=== PATIENT | female | born 1950 | race Caucasian/White ===

== ENCOUNTER 2016-04-18 06:28 | Inpatient (IN) | payer MEDICARE, OTHER ==
[2016-04-18] MEDS ORDERED: ALBUTEROL NEBULIZED 2.5 MG/3 ML INHALATION STA (06:37)
[2016-04-18] MEDS ORDERED: SODIUM CHLORIDE 0.9% 500 ML IV STA (06:37)
--- NOTE | 2016-04-18 06:39 | ED ---
General Adult HPI - General Source: RN notes reviewed <Antonio Steen - Last Filed: 04/18/16 06:47> <Tomi Singh - Last Filed: 04/18/16 08:02> - General Stated complaint: chest pain, SOB Time Seen by Provider: 04/18/16 06:35 - History of Present Illness Initial comments: This is a 66-year-old female who presents to the emergency department with past medical history significant for DE and COPD. Patient states she has had difficulty breathing over the last couple of days and is getting progressively worse per patient states she also has had significant cough which is not going away. Patient denies any fever or chills. Patient denies any chest pain but she does state her chest is tight which is typical for COPD. Patient denies any palpitations. She denies headache patient denies numbness weakness. Patient denies lightheadedness dizziness or near syncopal episode. Patient denies any abdominal pain patient denies nausea vomiting or diarrhea. (Antonio Steen) - Related Data Home Medications Medication Instructions Recorded Confirmed Albuterol Inhaler [Ventolin Hfa 1 - 2 puff INHALATION RT-Q4H PRN 09/30/15 Inhaler] Budesonide-Formot 160-4.5 Mcg 2 puff INHALATION RT-BID 10/12/15 04/18/16 [Symbicort 160-4.5 Mcg Inhaler] Albuterol Nebulized [Ventolin 2.5 mg INHALATION RT-Q6H 10/23/15 04/18/16 Nebulized] amLODIPine [Norvasc] 2.5 mg PO DAILY 01/09/16 04/18/16 HYDROcodone/APAP 7.5-325MG [[place] 1 tab PO Q8H PRN 04/18/16 04/18/16 7.5-325] Allergies Allergy/AdvReac Type Severity Reaction Status Date / Time pneumococcal vaccine Allergy Unknown STATES SHE Verified 04/18/16 08:00 GETS PNEUMONIA Influenza Virus Vaccines Allergy Unknown Verified 04/18/16 08:00 milk AdvReac Mild Nausea Verified 04/18/16 08:00 Review of Systems ROS Other: All systems not noted in ROS Statement are negative. <Antonio Steen - Last Filed: 04/18/16 06:47> ROS Other: All systems not noted in ROS Statement are negative. <Tomi Singh - Last Filed: 04/18/16 08:02> ROS Statement: Those systems with pertinent positive or pertinent negative responses have been documented in the HPI. Past Medical History Past Medical History: Asthma, Cancer, COPD, Eye Disorder, Hyperlipidemia, Hypertension, Myocardial Infarction (DE), Osteoarthritis (OA), Pneumonia, Sleep Apnea/CPAP/BIPAP Additional Past Medical History / Comment(s): Advanced oxygen-dependent COPD with chronic hypoxic respiratory failure and with multiple hospitalization for COPD exacerbation including hospitalization in May and October 2015, chronic hypoxic respiratory failure, the patient is bald with a single kidney, has hypertension, coronary artery disease, previous DE, osteoarthritis, preserved LV function without evidence of pulmonary hypertension based on echocardiogram from 2013. She also has bilateral glaucoma, skin cancer, previous history of bowel obstruction. Last Myocardial Infarction Date:: 2011? History of Any Multi-Drug Resistant Organisms: None Reported Past Surgical History: Appendectomy, Back Surgery, Bowel Resection, Section, Hysterectomy, Orthopedic Surgery Additional Past Surgical History / Comment(s): 10/28/15 anterior cervical decompression fusion C3-4,C4-5,C5-6 with NIM cord monitoring. Other surgical hx: BACK SURGERY WITH FUSION, manolo CATARACT SURGERY, LASER EYE SURGERY FOR GLAUCOMA., RIGHT KNEE SURGERY(fx kneecap). Past Anesthesia/Blood Transfusion Reactions: No Reported Reaction Past Psychological History: Anxiety Additional Psychological History / Comment(s): Pt resides with her son and laurie- in-law. She uses a wheeled walker to ambulate. She does not drive-family takes her to appts. She has O2 at 3L/NC ATC. She has a nebulizer. Smoking Status: Former smoker Past Alcohol Use History: Occasional Additional Past Alcohol Use History / Comment(s): Has been SMOKING FOR 59 YEARS.SMOKING SINCE 7 YEARS OLD, USED TO SMOKE 3 PPD. Since 10/12/15 admission to hospital smokes less than 3 cigarettes a day. 01/09/2016 patient reports she has not smoked marisol admission in October. Past Drug Use History: None Reported - Past Family History Mother Family Medical History: Myocardial Infarction (DE) Father Family Medical History: No Reported History Additional Family Medical History / Comment(s): FORM OLD AGE Brother(s) Family Medical History: Asthma, COPD Sister(s) Family Medical History: Asthma, COPD <Steen,Antonio - Last Filed: 04/18/16 06:47> General Exam <Antonio Steen - Last Filed: 04/18/16 06:47> <Tomi Singh - Last Filed: 04/18/16 08:02> - General Exam Comments Initial Comments: GENERAL: Patient is well-developed and well-nourished. Patient is nontoxic and well- hydrated and is in moderate distress. ENT: Neck is soft and supple. No significant lymphadenopathy is noted. Oropharynx is clear. Moist mucous membranes. Neck has full range of motion without eliciting any pain. EYES: The sclera were anicteric and conjunctiva were pink and moist. Extraocular movements were intact and pupils were equal round and reactive to light. Eyelids were unremarkable. PULMONARY: Patient has diffuse wheezing throughout CARDIOVASCULAR: There is a regular rate and rhythm without any murmurs gallops or rubs. ABDOMEN: Soft and nontender with normal bowel sounds. No palpable organomegaly was noted. There is no palpable pulsatile mass. SKIN: Skin is clear with no lesions or rashes and otherwise unremarkable. NEUROLOGIC: Patient is alert and oriented x3. Cranial nerves II through XII are grossly intact. Motor and sensory are also intact. Normal speech, volume and content. Symmetrical smile. MUSCULOSKELETAL: Normal extremities with adequate strength and full range of motion. No lower extremity swelling or edema. No calf tenderness. LYMPHATICS: No significant lymphadenopathy is noted PSYCHIATRIC: Normal psychiatric evaluation. Normal interpersonal interactions appears functionally intact in deals appropriately with others. No signs of depression. No signs of anxiety. (Antonio Steen) Medical Decision Making <Antonio Steen - Last Filed: 04/18/16 06:47> - Lab Data Result diagrams: 04/18/16 07:00 04/18/16 07:00 <Tomi Singh - Last Filed: 04/18/16 08:02> - Medical Decision Making EKG shows sinus tachycardia with an occasional PAC at 126 bpm RI interval is 120 QRS is 82 QT intervals 308 QTC is 446 per patient's EKG shows no ST segment elevation or depression or T wave abnormalities are noted. Dr. Osei will be taking over the care of this patient at 7 AM (Antonio Steen) - Lab Data Lab Results 04/18/16 04/18/1617 Range/Units 07:00 07:00 07:00 WBC 8.9 (3.8-10.6) k/uL RBC 3.98 (3.80-5.40) m/uL Hgb 10.4 L (11.4-16.0) gm/dL Hct 33.9 L (34.0-46.0) % MCV 85.2 (80.0-100.0) fL MCH 26.1 (25.0-35.0) pg MCHC 30.6 L (31.0-37.0) g/dL RDW 18.1 H (11.5-15.5) % Plt Count 451 H (150-450) k/uL Neutrophils % 71 % Lymphocytes % 20 % Monocytes % 5 % Eosinophils % 1 % Basophils % 1 % Neutrophils # 6.4 (1.3-7.7) k/uL Lymphocytes # 1.8 (1.0-4.8) k/uL Monocytes # 0.5 (0-1.0) k/uL Eosinophils # 0.1 (0-0.7) k/uL Basophils # 0.1 (0-0.2) k/uL Hypochromasia Slight Anisocytosis Slight PT (9.0-12.0) sec INR (<1.1) APTT (22.0-30.0) sec Sodium 140 (137-145) mmol/L Potassium 4.3 (3.5-5.1) mmol/L Chloride 100 (98-107) mmol/L Carbon Dioxide 29 (22-30) mmol/L Anion Gap 11 mmol/L BUN 9 (7-17) mg/dL Creatinine 0.50 L (0.52-1.04) mg/dL Est GFR (MDRD) Af Amer >60 (>60 ml/min/1.73 sqM) Est GFR (MDRD) Non-Af >60 (>60 ml/min/1.73 sqM) Glucose 129 H (74-99) mg/dL Calcium 9.2 (8.4-10.2) mg/dL Magnesium 1.8 (1.6-2.3) mg/dL Total Bilirubin 0.3 (0.2-1.3) mg/dL AST 18 (14-36) U/L ALT 27 (9-52) U/L Alkaline Phosphatase 90 (38-126) U/L Total Creatine Kinase 49 (30-135) U/L CK-MB (CK-2) 1.5 (0.0-2.4) ng/mL CK-MB (CK-2) Rel Index 3.1 Troponin I <0.012 (0.000-0.034) ng/mL Total Protein 7.1 (6.3-8.2) g/dL Albumin 3.7 (3.5-5.0) g/dL 04/18/16 Range/Units 07:00 WBC (3.8-10.6) k/uL RBC (3.80-5.40) m/uL Hgb (11.4-16.0) gm/dL Hct (34.0-46.0) % MCV (80.0-100.0) fL MCH (25.0-35.0) pg MCHC (31.0-37.0) g/dL RDW (11.5-15.5) % Plt Count (150-450) k/uL Neutrophils % % Lymphocytes % % Monocytes % % Eosinophils % % Basophils % % Neutrophils # (1.3-7.7) k/uL Lymphocytes # (1.0-4.8) k/uL Monocytes # (0-1.0) k/uL Eosinophils # (0-0.7) k/uL Basophils # (0-0.2) k/uL Hypochromasia Anisocytosis PT 10.2 (9.0-12.0) sec INR 1.0 (<1.1) APTT 23.5 (22.0-30.0) sec Sodium (137-145) mmol/L Potassium (3.5-5.1) mmol/L Chloride (98-107) mmol/L Carbon Dioxide (22-30) mmol/L Anion Gap mmol/L BUN (7-17) mg/dL Creatinine (0.52-1.04) mg/dL Est GFR (MDRD) Af Amer (>60 ml/min/1.73 sqM) Est GFR (MDRD) Non-Af (>60 ml/min/1.73 sqM) Glucose (74-99) mg/dL Calcium (8.4-10.2) mg/dL Magnesium (1.6-2.3) mg/dL Total Bilirubin (0.2-1.3) mg/dL AST (14-36) U/L ALT (9-52) U/L Alkaline Phosphatase (38-126) U/L Total Creatine Kinase (30-135) U/L CK-MB (CK-2) (0.0-2.4) ng/mL CK-MB (CK-2) Rel Index Troponin I (0.000-0.034) ng/mL Total Protein (6.3-8.2) g/dL Albumin (3.5-5.0) g/dL Disposition <Antonio Steen - Last Filed: 04/18/16 06:47> <Tomi Singh - Last Filed: 04/18/16 08:02> Clinical Impression: COPD exacerbation, Pneumonia Disposition: ADMITTED IP TO THIS HOSP Condition: Poor
[2016-04-18] MEDS ORDERED: IPRATROPIUM 0.5 MG/2.5 ML NEBU INHALATION STA (06:41)
[2016-04-18 07:07] LABS: Anisocytosis Slight; Basophils # (A) 0.1 k/uL (0-0.2); Basophils % (A) 1 %; CH 26.9; CHCM 31.7; Eosinophils # (A) 0.1 k/uL (0-0.7); Eosinophils % (A) 1 %; HCT 33.9 % (34.0-46.0); HGB 10.4 gm/dL (11.4-16.0); Hypochromasia Slight; Luc # (Auto) 0.15; Luc % (Auto) 2; Lymphocytes # (A) 1.8 k/uL (1.0-4.8); Lymphocytes % (A) 20 %; MCH 26.1 pg (25.0-35.0); MCHC 30.6 g/dL (31.0-37.0); MCV 85.2 fL (80.0-100.0); Mean Platelet Volume 7.4; Monocytes # (A) 0.5 k/uL (0-1.0); Monocytes % (A) 5 %; Neutrophils # (A) 6.4 k/uL (1.3-7.7); Neutrophils % (A) 71 %; RBC 3.98 m/uL (3.80-5.40); RDW 18.1 % (11.5-15.5); WBC 8.9 k/uL (3.8-10.6)
[2016-04-18 07:19] LABS: ALT 27 U/L (9-52); AST 18 U/L (14-36); Alkaline Phosphatase 90 U/L (38-126); Anion Gap 11 mmol/L; Blood Urea Nitrogen 9 mg/dL (7-17); Calcium 9.2 mg/dL (8.4-10.2); Carbon Dioxide 29 mmol/L (22-30); Chloride 100 mmol/L (98-107); Glucose 129 mg/dL (74-99); Magnesium 1.8 mg/dL (1.6-2.3); Non-African American GFR(MDRD) >60 (>60 ml/min/1.73 sqM); Potassium 4.3 mmol/L (3.5-5.1); Sodium 140 mmol/L (137-145); Total Bilirubin 0.3 mg/dL (0.2-1.3); Total Protein 7.1 g/dL (6.3-8.2)
[2016-04-18 07:26] LABS: Partial Thromboplastin Time 23.5 sec (22.0-30.0); Prothrombin Time 10.2 sec (9.0-12.0)
[2016-04-18 07:27] LABS: Creatine Kinase 49 U/L (30-135)
[2016-04-18] MEDS ORDERED: ALBUTEROL NEBULIZED 2.5 MG/3 ML INHALATION PRN (07:31)
[2016-04-18] MEDS ORDERED: HYDROcodone/APAP 5-325MG 1 EACH TAB PO PRN (07:33)
[2016-04-18 07:41] LABS: Creatine Kinase MB 1.5 ng/mL (0.0-2.4); Troponin I <0.012 ng/mL (0.000-0.034)
--- NOTE | 2016-04-18 07:45 | XR ---
EXAMINATION TYPE: XR chest 1V portable DATE OF EXAM: 04/18/2016 7:09 AM COMPARISON: Chest x-ray January 16, 2016. HISTORY: Shortness of breath for 2 days. TECHNIQUE: Single frontal view of the chest is obtained. FINDINGS: There is emphysematous change with scattered areas of parenchymal fibrosis redemonstrated bilaterally. There is persistent right apical pleural thickening and scarring. There are new bilatera l suprahilar opacities and left upper medial opacities. There is new tiny bilateral pleural effusions . No pneumothorax is seen bilaterally. The cardiac silhouette size is within normal limits. Fusion pl ate lower cervical spine is partially imaged. IMPRESSION: Chronic emphysematous and fibrotic changes. New bilateral suprahilar infiltrates and/or edema and left upper medial infiltrate.
[2016-04-18] MEDS ORDERED: HEPARIN SODIUM,PORCINE 5,000 UNIT/ML 1 ML VIAL SQ SCH (08:00)
[2016-04-18] MEDS ORDERED: LEVOFLOXACIN 750MG-D5W PMX 750 MG in DEXTROSE/WATER 1 150ML.BAG IVPB STA (08:01)
[2016-04-18] MEDS ORDERED: LOSARTAN 50 MG TAB PO SCH (09:00)
[2016-04-18] MEDS ORDERED: amLODIPine 2.5 MG TAB PO SCH (09:00)
[2016-04-18] MEDS: IPRATROPIUM-ALBUTEROL 3 ML NEB INHALATION SCH ×4 (11:25→19:43)
[2016-04-18] MEDS: SYMBICORT 160-4.5 MCG INHALER INHALATION SCH ×2 (11:25→19:48)
[2016-04-18] MEDS: METOPROLOL TARTRATE 25 MG TAB PO SCH (12:08)
[2016-04-18 12:10] LABS: Glucose,Whole Blood 147 mg/dL (75-99)
[2016-04-18] MEDS: methylPREDNISolone SOD SUCCI 125 MG/2 ML VIAL IV SCH ×3 (12:10→23:56)
[2016-04-18] MEDS: CHOLECALCIFEROL 1,000 UNIT TAB PO SCH (12:10)
[2016-04-18] MEDS: INSULIN LISPRO (humaLOG) 300 UNIT/3 ML VIAL SQ SCH ×3 (12:30→21:55)
[2016-04-18 16:40] LABS: Glucose,Whole Blood 179 mg/dL (75-99)
[2016-04-18 20:18] LABS: Glucose,Whole Blood 128 mg/dL (75-99)
[2016-04-18 20:50] LABS: Hemoglobin A1C 5.5 % (4.2-6.1)
[2016-04-18] MEDS: HYDROcodone/APAP 7.5-325MG 1 EACH TAB PO PRN (21:54)
[2016-04-18] MEDS: ATORVASTATIN 40 MG TAB PO SCH (21:54)
[2016-04-18] MEDS: HEPARIN SODIUM,PORCINE 5,000 UNIT/ML 1 ML VIAL SQ SCH (21:55)
--- NOTE | 2016-04-18 22:03 | HP ---
DATE OF ADMISSION: Patient is a very pleasant 66-year-old female who came into the emergency department with complaints of shortness of breath. Patient appears to have ( ) has used 3.5 L of oxygen at home. Patient denied any fever or chills. Patient was coughing with greenish sputum production. Patient was started on levofloxacin. Patient was started on Rocephin and azithromycin. Patient does not appear to have a pneumonic process on the chest x-ray. Patient is a thin-built female; is at present using BiPAP on and off. Patient continues to smoke. She says she cut down to 4 cigarettes lately because of her shortness of breath. Her shortness of breath started 3 days ago. Patient denied any fever or chills. Patient follows with Dr. Vang as an outpatient. REVIEW OF SYSTEMS: CONSTITUTIONAL: No fever, no malaise, no fatigue. HEENT: No recent visual problems or hearing problems. Denied any sore throat. CARDIOVASCULAR: No chest pain, orthopnea, PND, no palpitations, no syncope. PULMONARY: As described in HPI. GASTROINTESTINAL: No diarrhea, no nausea, no vomiting, no abdominal pain. Normoactive bowel sounds. NEUROLOGICAL: No headaches, no weakness, no numbness. HEMATOLOGICAL: Denies any bleeding or petechiae. GENITOURINARY: Denies any burning micturition, frequency, or urgency. MUSCULOSKELETAL/RHEUMATOLOGICAL: Denies any joint pain, swelling, or any muscle pain. ENDOCRINE: Denies any polyuria or polydipsia. The rest of the 14 point review of systems is negative. Home medications include: 1. Albuterol. 2. Budesonide. 3. Fomoterol. 4. Amlodipine. 5. Hydrocodone/acetaminophen. ALLERGIES: PNEUMOCOCCAL VACCINE, INFLUENZA VACCINE. Past medical history is significant for: 1. COPD. 2. Hyperlipidemia. 3. Hypertension. 4. Osteoarthritis. 5. Myocardial infarction. 6. Sleep apnea. Patient is oxygen-dependent; uses around 3.5 L at home. PAST SURGICAL HISTORY: 1. Appendectomy. 2. Back surgery. 3. Bowel resection surgery. 4. section. 5. Hysterectomy. 6. Orthopedic surgery. Patient continues to smoke; has been smoking for 59 years; used to smoke 3 packs per day. Denied any alcohol abuse or any drug abuse. FAMILY HISTORY: Mother with myocardial infarction. Father of old age. Brother had asthma and COPD. Sister had asthma and COPD. PHYSICAL EXAMINATION: VITAL SIGNS: Temperature 97.4, pulse of around 100, respiratory rate of 22. Blood pressure is 110/70. Saturating at 92% on 4 L of oxygen by nasal cannula. ( ) GENERAL: The patient is alert and oriented x3, not in any acute distress. Well developed, well nourished. HEENT: Pupils are round and equally reacting to light. EOMI. No scleral icterus. No conjunctival pallor. Normocephalic, atraumatic. No pharyngeal erythema. No thyromegaly. CARDIOVASCULAR: S1 and S2 present. No murmurs, rubs, or gallops. PULMONARY: Significantly decreased air entry to bilateral lung reynolds. No wheezing was appreciated. No crackles were appreciated. Patient goes into respiratory distress very easily. Even when she talks she gets short of breath. ABDOMEN: Soft, nontender, nondistended, normoactive bowel sounds. No palpable organomegaly. MUSCULOSKELETAL: No joint swelling or deformity. EXTREMITIES: No cyanosis, clubbing, or pedal edema. NEUROLOGICAL: Gross neurological examination did not reveal any focal deficits. SKIN: No rashes. LABORATORY DATA: CBC, CMP are essentially within normal limits. Chest x-ray did not show any pneumonic process. ASSESSMENT AND PLAN: 1. Acute on chronic obstructive pulmonary disease exacerbation with acute on chronic hypercapnic respiratory failure from chronic obstructive pulmonary disease exacerbation. Patient does have advanced COPD, Gold stage V, stage IV COPD. Extensive counseling regarding nicotine use was provided. Patient was started on systemic steroids, inhalational treatments in the form of levofloxacin for tracheobronchitis. 2. Tracheobronchitis. 3. Continued nicotine use. Counseling was provided. 4. Hyperlipidemia. 5. Hypertension. 6. 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 Patient was on and off BiPAP for severe COPD exacerbation. Pulmonology will be consulted.
--- NOTE | 2016-04-18 22:33 | HP ---
DATE OF ADMISSION: 04/18/2016 The patient is a very pleasant 66 -year-old female who came into the Emergency Room Department with complaints of shortness of breath and patient appears to have ( ) 3.5 L of oxygen at home. The patient denied any fever, chills. Patient was coughing with ( ) sputum production, ( ) levofloxacin. The patient was started on Rocephin and azithromycin. The patient does not appear to have pneumonic process on the chest x-ray. Patient is a thin built female, is presently using BIPAP on and off. Patient continues to smoke. She says she cut down to 4 cigarettes lately because of her shortness of breath. Her shortness of breath started 3 days ago. Patient denied any fever, chills. Patient follows with Dr. Vang as an outpatient. REVIEW OF SYSTEMS: CONSTITUTIONAL: No fever, no malaise, no fatigue. HEENT: No recent visual problems or hearing problems. Denied any sore throat. CARDIOVASCULAR: No chest pain, orthopnea, PND, no palpitations, no syncope. PULMONARY: As described in HPI. GASTROINTESTINAL: No diarrhea, no nausea, no vomiting, no abdominal pain. Normoactive bowel sounds. NEUROLOGICAL: No headaches, no weakness, no numbness. HEMATOLOGICAL: Denies any bleeding or petechiae. GENITOURINARY: Denies any burning micturition, frequency, or urgency. MUSCULOSKELETAL/RHEUMATOLOGICAL: Denies any joint pain, swelling, or any muscle pain. ENDOCRINE: Denies any polyuria or polydipsia. The rest of the 14 point review of systems is negative. The home medications include: 1. Albuterol. 2. Budesonide. 3. Formoterol. 4. Amlodipine. 5. Hydrocodone acetaminophen. ALLERGIES: ALLERGIC TO PNEUMOCOCCAL VACCINE AND ( ). PAST MEDICAL HISTORY: Significant for COPD, hyperlipidemia, hypertension, osteoarthritis, myocardial infarction, sleep apnea, the patient oxygen dependent, ( ) at home. PAST SURGICAL HISTORY: Appendectomy, back surgery, ( ) surgery, section, hysterectomy, orthopedic surgery. Patient continues to smoke, has been smoking for 59 years. Used to smoke 3 packs per day. Denied any alcohol abuse or drug abuse. FAMILY HISTORY: Significant for mother with myocardial infarction. Father of old age. Brother had asthma and COPD . PHYSICAL EXAMINATION: VITAL SIGNS: Temperature is 97.4, pulse around 100, respiratory rate of 22, blood pressure is 110/70, saturating at 92% on 4 liters of O2 by nasal cannula. GENERAL: ( ) thin built female, alert and oriented x3. HEENT: Pupils are round and equally reacting to light. EOMI. No scleral icterus. No conjunctival pallor. Normocephalic, atraumatic. No pharyngeal erythema. No thyromegaly. CARDIOVASCULAR: S1 and S2 present. No murmurs, rubs, or gallops. PULMONARY: Significantly decreased air entry to bilateral lung reynolds. No wheezing was appreciated. No crackles are appreciated. Patient goes into respiratory distress very easily even with simple ( ) even when she talks she gets short of breath. ABDOMEN: Soft, nontender, nondistended, normoactive bowel sounds. No palpable organomegaly. MUSCULOSKELETAL: No joint swelling or deformity. EXTREMITIES: No cyanosis, clubbing, or pedal edema. NEUROLOGICAL: Gross neurological examination did not reveal any focal deficits. SKIN: No rashes. LABORATORY DATA: CBC, CMP are essentially within normal limits. Chest x-ray did not show any pneumonic process ASSESSMENT AND PLAN: 1. Acute on chronic obstructive pulmonary disease exacerbation ( ) acute on chronic hypercapnic respiratory failure from chronic obstructive pulmonary disease exacerbation. Patient does have advanced chronic obstructive pulmonary disease, Gold stage V, Stage IV chronic obstructive pulmonary disease. Extensive counseling regarding ( ) use was provided. Patient was started on systemic steroids inhalation treatments. Antibiotics in the form of levofloxacin for tracheobronchitis. 2. Tracheobronchitis. 3. Continued nicotine use. Counseling was provided. 4. Hyperlipidemia. 5. Hypertension. 6. 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 7. Patient was on and off BiPAP for severe chronic obstructive pulmonary disease exacerbation and pulmonology will be consulted.
[2016-04-19] MEDS: IPRATROPIUM-ALBUTEROL 3 ML NEB INHALATION SCH ×6 (00:04→21:22)
[2016-04-19] MEDS ORDERED: IV VANCOMYCIN PER PHARMACY 1 EACH MISC MISCELLANE PRN (05:34)
[2016-04-19] MEDS ORDERED: VANCOMYCIN 1,000 MG in SODIUM CHLORIDE 0.9% 250 ML IVPB STA (05:34)
[2016-04-19] MEDS: methylPREDNISolone SOD SUCCI 125 MG/2 ML VIAL IV SCH ×4 (05:59→23:49)
[2016-04-19 06:06] LABS: Glucose,Whole Blood 161 mg/dL (75-99)
[2016-04-19] MEDS: INSULIN LISPRO (humaLOG) 300 UNIT/3 ML VIAL SQ SCH ×4 (06:50→21:31)
[2016-04-19] MEDS: METOPROLOL TARTRATE 25 MG TAB PO SCH (08:23)
[2016-04-19] MEDS: LEVOFLOXACIN 750 MG TAB PO SCH (08:23)
[2016-04-19] MEDS: HEPARIN SODIUM,PORCINE 5,000 UNIT/ML 1 ML VIAL SQ SCH ×2 (08:23→21:35)
[2016-04-19] MEDS: SYMBICORT 160-4.5 MCG INHALER INHALATION SCH ×2 (08:54→21:23)
[2016-04-19 11:47] LABS: Glucose,Whole Blood 127 mg/dL (75-99)
[2016-04-19] MEDS: CHOLECALCIFEROL 1,000 UNIT TAB PO SCH (11:56)
[2016-04-19 16:50] LABS: Glucose,Whole Blood 143 mg/dL (75-99)
[2016-04-19] MEDS: VANCOMYCIN 1,000 MG in SODIUM CHLORIDE 0.9% 250 ML IVPB SCH (17:57)
[2016-04-19 20:17] LABS: Glucose,Whole Blood 191 mg/dL (75-99)
[2016-04-19] MEDS: ATORVASTATIN 40 MG TAB PO SCH (21:28)
--- NOTE | 2016-04-19 23:07 | PN ---
This patient is a 66-year-old who came into the emergency department and was admitted for COPD exacerbation. Patient does have advanced COPD. Patient is still using on and off BiPAP but has significant clinical improvement. Patient continues to smoke, follows with Dr. Vang. Dr. Vang was consulted. REVIEW OF SYSTEMS: CARDIOVASCULAR: No chest pain, no orthopnea, no PND, no palpitations. PULMONARY: Improved shortness of breath. GASTROINTESTINAL: No diarrhea, nausea or vomiting. No abdominal pain. Normoactive bowel sounds. NEUROLOGIC: No headaches, no weakness, no numbness. Medications were reviewed. PHYSICAL EXAMINATION: VITAL SIGNS: Temperature 98.5, pulse of 78, respiratory rate of 22. Blood pressure is 130/72. Saturating at 95% on 4 L. Patient is still using on and off BiPAP. GENERAL: The patient is alert and oriented x3, not in any acute distress. Well developed, well nourished. HEENT: Pupils are round and equally reacting to light. EOMI. No scleral icterus. No conjunctival pallor. Normocephalic, atraumatic. No pharyngeal erythema. No thyromegaly. CARDIOVASCULAR: S1 and S2 present. No murmurs, rubs, or gallops. PULMONARY: Patient does have significant improvement in air entry. No significant wheezing was appreciated. ABDOMEN: Soft, nontender, nondistended, normoactive bowel sounds. No palpable organomegaly. MUSCULOSKELETAL: No joint swelling or deformity. EXTREMITIES: No cyanosis, clubbing, or pedal edema. NEUROLOGICAL: Gross neurological examination did not reveal any focal deficits. SKIN: No rashes. Laboratory data were reviewed. ASSESSMENT AND PLAN: 1. Acute on chronic hypercapnic respiratory failure from chronic obstructive pulmonary disease exacerbation. Patient probably has Gold stage IV COPD. Patient uses around 3.5 L at home. 2. Tracheobronchitis. 3. History of sleep apnea as per the patient. 4. Hypertension. 5. Severe cachexia. PLAN: Continue with systemic steroids, inhalational treatments, antibiotics for tracheobronchitis. Try to wean her off the BiPAP. Consulted Pulmonology.
[2016-04-20] MEDS: IPRATROPIUM-ALBUTEROL 3 ML NEB INHALATION SCH ×6 (00:21→19:37)
[2016-04-20 05:34] LABS: Glucose,Whole Blood 132 mg/dL (75-99)
[2016-04-20] MEDS: VANCOMYCIN 1,000 MG in SODIUM CHLORIDE 0.9% 250 ML IVPB SCH (06:04)
[2016-04-20] MEDS: methylPREDNISolone SOD SUCCI 125 MG/2 ML VIAL IV SCH ×4 (06:04→23:58)
[2016-04-20] MEDS: INSULIN LISPRO (humaLOG) 300 UNIT/3 ML VIAL SQ SCH ×4 (07:05→22:03)
[2016-04-20] MEDS: HEPARIN SODIUM,PORCINE 5,000 UNIT/ML 1 ML VIAL SQ SCH ×2 (08:30→22:05)
[2016-04-20] MEDS: LEVOFLOXACIN 750 MG TAB PO SCH (08:30)
[2016-04-20] MEDS: METOPROLOL TARTRATE 25 MG TAB PO SCH (08:30)
[2016-04-20] MEDS: SYMBICORT 160-4.5 MCG INHALER INHALATION SCH ×2 (08:31→19:36)
[2016-04-20 11:31] LABS: Glucose,Whole Blood 121 mg/dL (75-99)
[2016-04-20] MEDS: CHOLECALCIFEROL 1,000 UNIT TAB PO SCH (11:50)
[2016-04-20 12:53] VITALS: BMI 17.0
--- NOTE | 2016-04-20 15:34 | P.CNPUL ---
History of Present Illness Consult date: 04/20/16 Reason for consult: COPD History of present illness: 66-year-old female patient with advanced oxygen-dependent COPD, question of multiple hospitalization the past for COPD exacerbation. For example, for the past year of 2015 the patient was admitted 4 times for COPD exacerbation including hospitalizations in May, June, October and January 2016 for the same. The patient required also noninvasive positive pressure ventilation/ BiPAP therapy for respiratory support. She comes in for essentially the same symptoms of increased shortness of breath, cough, chest congestion, wheezing, some night sweats. Denies having any chest pain. No angina. No pleurisy. No significant swelling in lower extremities. She claims that her last cigarette was around 2015 and she is still trying to quit smoking. Her chest x-ray shows hyperinflation and chronic scarring and fibrotic changes in the lung apices bilaterally more so on the right. There is some vague perihilar pulmonary infiltrates in addition. No nausea. No vomiting. No abdominal pain. No change in mental status. No leukocytosis. Renal functions were normal. She is significantly cachectic and looks very much emaciated wasted due to COPD related catabolic state Review of Systems Review of system was done. Overall performance and functional status is very poor due to advanced lung disease. The patient has limited exercise capacity and she is short of breath constantly and even at rest. She is actually dependent. 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 Last Myocardial Infarction Date:: 2011? History of Any Multi-Drug Resistant Organisms: None Reported Past Surgical History: Appendectomy, Back Surgery, Bowel Resection, Section, Hysterectomy, Orthopedic Surgery Additional Past Surgical History / Comment(s): 10/28/15 anterior cervical decompression fusion C3-4,C4-5,C5-6 with NIM cord monitoring, BACK SURGERY lami / FUSION/discectomy, manolo CATARACT SURGERY, LASER EYE SURGERY FOR GLAUCOMA., RIGHT KNEE SURGERY(fx kneecap). Past Anesthesia/Blood Transfusion Reactions: No Reported Reaction Past Psychological History: Anxiety Additional Psychological History / Comment(s): Pt has a son and laurie-in-law that reside with her. She uses a wheeled walker to ambulate. She does not drive-a friend takes her to appts. She has O2 at 3L/[place] ATC. She has a nebulizer. She is very concerned that she will not have a ride available to take her home at discharge. Smoking Status: Current every day smoker Past Alcohol Use History: Occasional Additional Past Alcohol Use History / Comment(s): Has been SMOKING FOR 59 YEARS.SMOKING SINCE 7 YEARS OLD, USED TO SMOKE 3 PPD. Since 10/12/15 admission to hospital smokes less than 4 cigarettes a day. Past Drug Use History: None Reported - Past Family History Mother Family Medical History: Myocardial Infarction (AZ) Additional Family Medical History / Comment(s): Mother had a AZ in her 50's Father Family Medical History: No Reported History Additional Family Medical History / Comment(s): FORM OLD AGE Brother(s) Family Medical History: Asthma, COPD Sister(s) Family Medical History: Asthma, COPD Medications and Allergies Home Medications Medication Instructions Recorded Confirmed Type Albuterol Inhaler [Ventolin Hfa 1 - 2 puff INHALATION RT-Q4H PRN 09/30/15 History Inhaler] Budesonide-Formot 160-4.5 Mcg 2 puff INHALATION RT-BID 10/12/15 04/18/16 History [Symbicort 160-4.5 Mcg Inhaler] Albuterol Nebulized [Ventolin 2.5 mg INHALATION RT-Q6H 10/23/15 04/18/16 History Nebulized] amLODIPine [Norvasc] 2.5 mg PO DAILY 01/09/16 04/18/16 History HYDROcodone/APAP 7.5-325MG [[place] 1 tab PO Q8H PRN 04/18/16 04/18/16 History 7.5-325] Allergies Allergy/AdvReac Type Severity Reaction Status Date / Time pneumococcal vaccine Allergy Unknown STATES SHE Verified 04/18/16 08:00 GETS PNEUMONIA Influenza Virus Vaccines Allergy Unknown Verified 04/18/16 08:00 milk AdvReac Mild Nausea Verified 04/18/16 08:00 Physical Exam Vitals: Vital Signs Temp Pulse Pulse Resp BP Pulse Ox 04/20/16 12:48 73 04/20/16 12:37 73 04/20/16 12:00 75 20 140/65 100 04/20/16 08:48 76 04/20/16 08:32 76 04/20/16 08:00 97.8 F 97 22 134/97 100 04/20/16 05:09 76 04/20/16 04:59 76 04/20/16 04:00 84 22 138/68 100 04/20/16 00:43 76 04/20/16 00:25 74 04/20/16 00:00 97.4 F L 87 22 134/68 100 04/19/16 21:39 78 04/19/16 21:23 76 04/19/16 20:00 97.0 F L 81 22 146/64 98 04/19/16 17:06 80 04/19/16 16:48 80 04/19/16 16:00 98.5 F 90 22 130/72 97 Intake and Output 04/20/16 04/20/16 04/20/16 06:59 14:59 22:59 Intake Total 500 280 Output Total 900 200 Balance -400 80 Intake: Oral 500 280 Output: Urine 900 200 Other: Voiding Method Bedside Commode # Voids 1 Weight 42.2 kg 42.2 kg Patient Weight 04/21/16 06:59 Weight 42.2 kg Thin and frail elderly female patient on acute distress. She was on BiPAP earlier Cardizem and oxygen at 3 L/m nasal cannula. She looks very much wasted cachectic and emaciated. Mild degree of respiratory distress even at rest. Not using excessive muscle breathing and she is able to complete full sentences.Head exam was generally normal. There was no scleral icterus or corneal arcus. Mucous membranes were moist.Neck was supple and without jugular venous distension, thyromegaly, or carotid bruits. Carotids were easily palpable bilaterally. There was no adenopathy. Lung sounds are markedly diminished and there is propagation of the expiratory phase of breathing and diffuse extremity wheezes throughout the lung reynolds bilaterally.Cardiac exam revealed the PMI to be normally situated and sized. The rhythm was regular and no extrasystoles were noted during several minutes of auscultation. The first and second heart sounds were normal and physiologic splitting of the second heart sound was noted. There were no murmurs, rubs, clicks, or gallops. Abdominal exam revealed normal bowel sounds. The abdomen was soft, non-tender, and without masses, organomegaly, or appreciable enlargement of the abdominal aorta.Examination of the extremities revealed easily palpable radial, femoral and pedal pulses. There was no cyanosis, clubbing or edema. Results - Laboratory Findings CBC and BMP: 04/18/16 07:00 04/18/16 07:00 PT/INR, D-dimer PT 10.2 sec (9.0-12.0) 04/18/16 07:00 INR 1.0 (<1.1) 04/18/16 07:00 Abnormal lab findings: Abnormal Labs 04/18/16 04/18/16 04/18/16 12:06 16:38 20:16 POC Glucose (mg/dL) 147 H 179 H 128 H 04/19/16 04/19/16 04/19/16 06:05 11:46 16:47 POC Glucose (mg/dL) 161 H 127 H 143 H 04/19/16 04/20/16 04/20/16 20:15 05:27 11:29 POC Glucose (mg/dL) 191 H 132 H 121 H - Diagnostic Findings Chest x-ray: image reviewed Assessment and Plan Plan: Assessment 1 acute exacerbation of COPD on top of chronic advanced lung disease. The patient was significantly short of breath, admission she was supported with BiPAP in addition to a combination of bronchodilators and steroids. Currently she is on few liters of oxygen nasal cannula. 2 advanced oxygen-dependent COPD with goal stage IV disease and significant limitation of performance and functional status 3 nicotine addiction/smoking 4 cachexia and severe protein calorie malnourishment 5 hyperlipidemia 6 hypertension 7 poor baseline performance and functional status secondary to above-mentioned comorbidities. 8 coronary artery disease Plan No clear convincing evidence of an underlying pneumonia. The presentation is typical of COPD exacerbation. Agree on the current bronchodilators steroids the regimen. Antibiotic coverage with Levaquin. BiPAP on and off during the day as needed. Prognosis unfortunately poor secondary to above-mentioned comorbidities. Dietary advice will be given. Smoking cessation counseling was done. We'll continue to follow.
--- NOTE | 2016-04-20 16:11 | PN ---
PROGRESS NOTE AND DISCHARGE SUMMARY DATE OF SERVICE: Patient is a 66-year-old who was admitted for COPD exacerbation. Patient is clinically doing well. Patient is just using BiPAP on and off, but I do not think it is necessary. Dr. Vang will evaluate the patient today. Patient has much better air entry into bilateral lung reynolds. REVIEW OF SYSTEMS: CARDIOVASCULAR: No chest pain, no orthopnea, no PND, no palpitations. PULMONARY: Denied any shortness of breath. No cough or hemoptysis. GASTROINTESTINAL: No diarrhea, nausea or vomiting. No abdominal pain. Normoactive bowel sounds. NEUROLOGIC: No headaches, no weakness, no numbness. Medications were reviewed. PHYSICAL EXAMINATION: VITAL SIGNS: Temperature 97.8, pulse of 76, respiratory rate of 20. Blood pressure is 140/65. Saturating at 100% on 3 L of oxygen by nasal cannula. Patient will not need 100% saturation, so we can cut down on the oxygen. GENERAL: Very thin build. Alert and oriented x3. HEENT: Pupils are round and equally reacting to light. EOMI. No scleral icterus. No conjunctival pallor. Normocephalic, atraumatic. No pharyngeal erythema. No thyromegaly. CARDIOVASCULAR: S1 and S2 present. No murmurs, rubs, or gallops. PULMONARY: Chest is clear to auscultation, no wheezing or crackles. ABDOMEN: Soft, nontender, nondistended, normoactive bowel sounds. No palpable organomegaly. MUSCULOSKELETAL: No joint swelling or deformity. EXTREMITIES: No cyanosis, clubbing, or pedal edema. NEUROLOGICAL: Gross neurological examination did not reveal any focal deficits. SKIN: No rashes. LABORATORY DATA: None available from today. ASSESSMENT AND PLAN: 1. Acute on chronic hypercapnic respiratory failure secondary to chronic obstructive pulmonary disease exacerbation. 2. Tracheobronchitis. 3. Sleep apnea. 4. Hypertension. 5. Severe cachexia. Patient probably can be discharged today if cleared by Pulmonology. If patient is discharged, he will follow up with primary care physician in 3 to 5 days. Activity as tolerated. Cardiac diet. Follow up with Dr. Vang as scheduled. Extensive nicotine cessation counseling was provided. Patient continues to smoke unfortunately. I spent greater than 35 minutes in total discharge process.
[2016-04-20 17:01] LABS: Glucose,Whole Blood 170 mg/dL (75-99)
[2016-04-20 21:00] LABS: Glucose,Whole Blood 182 mg/dL (75-99)
[2016-04-20] MEDS: diphenhydrAMINE 25 MG CAP PO SCH (22:03)
[2016-04-20] MEDS: ATORVASTATIN 40 MG TAB PO SCH (22:03)
[2016-04-20] MEDS: HYDROcodone/APAP 7.5-325MG 1 EACH TAB PO PRN (22:08)
[2016-04-21] MEDS: IPRATROPIUM-ALBUTEROL 3 ML NEB INHALATION SCH ×4 (00:12→11:57)
[2016-04-21 02:33] VITALS: RESP 18
[2016-04-21] MEDS ORDERED: VANCOMYCIN TROUGH DUE 1 EACH MISC MISCELLANE ONE (06:00)
[2016-04-21 06:06] LABS: Glucose,Whole Blood 186 mg/dL (75-99)
[2016-04-21 06:31] LABS: Anion Gap 8 mmol/L; Carbon Dioxide 30 mmol/L (22-30); Chloride 100 mmol/L (98-107); Glucose 170 mg/dL (74-99); Non-African American GFR(MDRD) >60 (>60 ml/min/1.73 sqM); Sodium 138 mmol/L (137-145)
[2016-04-21 06:51] LABS: Blood Urea Nitrogen 20 mg/dL (7-17); Potassium 5.1 mmol/L (3.5-5.1)
[2016-04-21] MEDS: methylPREDNISolone SOD SUCCI 125 MG/2 ML VIAL IV SCH ×2 (07:09→11:52)
[2016-04-21] MEDS: INSULIN LISPRO (humaLOG) 300 UNIT/3 ML VIAL SQ SCH ×2 (07:09→11:52)
[2016-04-21] MEDS: HEPARIN SODIUM,PORCINE 5,000 UNIT/ML 1 ML VIAL SQ SCH (08:17)
[2016-04-21] MEDS: METOPROLOL TARTRATE 25 MG TAB PO SCH (08:17)
[2016-04-21] MEDS: LEVOFLOXACIN 750 MG TAB PO SCH (08:17)
[2016-04-21] MEDS: CHOLECALCIFEROL 1,000 UNIT TAB PO SCH (08:17)
[2016-04-21] MEDS: diphenhydrAMINE 25 MG CAP PO SCH (08:20)
[2016-04-21] MEDS: SYMBICORT 160-4.5 MCG INHALER INHALATION SCH (08:35)
[2016-04-21 09:30] VITALS: TEMP 97.1
[2016-04-21 11:53] LABS: Glucose,Whole Blood 179 mg/dL (75-99)
[2016-04-21 13:00] VITALS: BP 159/80; PULSE 85
--- NOTE | 2016-04-21 16:52 | P.PN ---
Subjective 66-year-old female patient with advanced oxygen-dependent COPD, question of multiple hospitalization the past for COPD exacerbation. For example, for the past year of 2015 the patient was admitted 4 times for COPD exacerbation including hospitalizations in May, June, October and January 2016 for the same. The patient required also noninvasive positive pressure ventilation/ BiPAP therapy for respiratory support. She comes in for essentially the same symptoms of increased shortness of breath, cough, chest congestion, wheezing, some night sweats. Denies having any chest pain. No angina. No pleurisy. No significant swelling in lower extremities. She claims that her last cigarette was around 2015 and she is still trying to quit smoking. Her chest x-ray shows hyperinflation and chronic scarring and fibrotic changes in the lung apices bilaterally more so on the right. There is some vague perihilar pulmonary infiltrates in addition. No nausea. No vomiting. No abdominal pain. No change in mental status. No leukocytosis. Renal functions were normal. She is significantly cachectic and looks very much emaciated wasted due to COPD related catabolic state On 04/21/2016, the patient is less short of breath. She is improved. No chest pain. No cough or sputum production. She reports significant improvement in her COPD exacerbation over the past 24 hours and she seems to be back to her baseline and she tells me that she is ready to get discharged. No change in mental status. No chest pain. No swelling lower extremities. No other complaints otherwise. Note that she has been off the BiPAP for more than 24 hours. Objective - Vital Signs Vital signs: Vital Signs Temp 97.1 F L 04/21/16 08:30 Pulse 88 04/21/16 12:06 Resp 18 04/21/16 12:00 BP 159/80 04/21/16 12:00 Pulse Ox 98 04/21/16 12:00 Intake & Output 04/20/16 04/21/16 04/21/16 18:59 06:59 18:59 Intake Total 517 600 240 Output Total 625 800 550 Balance -108 -200 -310 Weight 42.2 kg 41.1 kg Intake: Oral 517 600 240 Output: Urine 625 800 550 Other: Voiding Method Bedside Commode # Voids 2 # Bowel Movements 1 - Exam Thin and frail elderly female patient on acute distress. She was on BiPAP earlier Cardizem and oxygen at 3 L/m nasal cannula. She looks very much wasted cachectic and emaciated. Mild degree of respiratory distress even at rest. Not using excessive muscle breathing and she is able to complete full sentences.Head exam was generally normal. There was no scleral icterus or corneal arcus. Mucous membranes were moist.Neck was supple and without jugular venous distension, thyromegaly, or carotid bruits. Carotids were easily palpable bilaterally. There was no adenopathy. Lung sounds are markedly diminished and there is propagation of the expiratory phase of breathing and diffuse extremity wheezes throughout the lung reynolds bilaterally.Cardiac exam revealed the PMI to be normally situated and sized. The rhythm was regular and no extrasystoles were noted during several minutes of auscultation. The first and second heart sounds were normal and physiologic splitting of the second heart sound was noted. There were no murmurs, rubs, clicks, or gallops. Abdominal exam revealed normal bowel sounds. The abdomen was soft, non-tender, and without masses, organomegaly, or appreciable enlargement of the abdominal aorta.Examination of the extremities revealed easily palpable radial, femoral and pedal pulses. There was no cyanosis, clubbing or edema. - Labs CBC & Chem 7: 04/18/16 07:00 04/21/16 05:40 Labs: Abnormal Lab Results - Last 24 Hours (Table) 04/20/16 04/20/16 04/21/16 Range/Units 16:59 20:59 05:40 BUN 20 H (7-17) mg/dL Creatinine 0.48 L (0.52-1.04) mg/dL Glucose 170 H (74-99) mg/dL POC Glucose (mg/dL) 170 H 182 H (75-99) mg/dL 04/21/16 04/21/16 Range/Units 06:05 11:33 BUN (7-17) mg/dL Creatinine (0.52-1.04) mg/dL Glucose (74-99) mg/dL POC Glucose (mg/dL) 186 H 179 H (75-99) mg/dL Assessment and Plan Plan: Assessment 1 acute exacerbation of COPD on top of chronic advanced lung disease. The patient was significantly short of breath, admission she was supported with BiPAP in addition to a combination of bronchodilators and steroids. Currently she is on few liters of oxygen nasal cannula. On 04/21/2016, the patient is improved and she is back to her baseline. She is less short of breath. We are in the process of discharging this patient home today. 2 advanced oxygen-dependent COPD with goal stage IV disease and significant limitation of performance and functional status 3 nicotine addiction/smoking 4 cachexia and severe protein calorie malnourishment 5 hyperlipidemia 6 hypertension 7 poor baseline performance and functional status secondary to above-mentioned comorbidities. 8 coronary artery disease Plan No clear convincing evidence of an underlying pneumonia. Seems to be recovering from an acute COPD exacerbation. Discharge the patient home on a prednisone burst taper in addition to her course of antibiotic and routine bronchodilators at home. Smoking cessation counseling was done. That advice was given. We'll see her in the office in follow-up. Long-term prognosis poor based on her advanced lung disease.
--- NOTE | 2016-04-22 09:53 | DS ---
DATE OF ADMISSION: 04/18/2016 DATE OF DISCHARGE: 04/21/2016 The patient is admitted with COPD exacerbation and patient is otherwise clinically doing well and patient will be discharged today. Patient was cleared by Dr. Vang to be discharged. The patient does have wheezing still, but apparently this is her baseline as per the patient and the patient wanted to be discharged. Extensive nicotine cessation counseling was provided and patient will follow with Dr. Vang as an outpatient. Because of her advanced COPD, the patient is definitely high risk for readmission and as patient continues to smoke. Medications were reviewed. Vital signs are stable. PHYSICAL EXAMINATION: GENERAL: The patient is alert and oriented x3, not in any acute distress. Well developed, well nourished. HEENT: Pupils are round and equally reacting to light. EOMI. No scleral icterus. No conjunctival pallor. Normocephalic, atraumatic. No pharyngeal erythema. No thyromegaly. CARDIOVASCULAR: S1 and S2 present. No murmurs, rubs, or gallops. LUNG EXAMINATION: The patient does have expiratory wheezing, apparently this is her baseline as per the patient. Fairly good air entry into bilateral lung reynolds. ABDOMEN: Soft, nontender, nondistended, normoactive bowel sounds. No palpable organomegaly. MUSCULOSKELETAL: No joint swelling or deformity. EXTREMITIES: No cyanosis, clubbing, or pedal edema. NEUROLOGICAL: Gross neurological examination did not reveal any focal deficits. SKIN: No rashes. LABORATORY DATA: Basic metabolic profile essentially within normal limits. ASSESSMENT AND PLAN: 1. Acute on chronic hypercapnic respiratory failure secondary to chronic obstructive pulmonary disease exacerbation. 2. Tracheobronchitis. 3. Sleep apnea, 4. Hypertension. 5. Severe cachexia. Patient has acute on chronic hypercapnic respiratory failure secondary to COPD exacerbation, but patient is not requiring any BiPAP at this point of time. I spent greater than 35 minutes in total discharge process. DISCHARGE DIET: Regular. Activity as tolerated. Follow up with Dr. Vang in a week and Dr. Cornejo on the 25 of April at 2:20 p.m.
== END 2016-04-21 14:24 | disposition home or self-care (01) | DRG 190 ==
LOC: EC 06:28 → 6SEL 07:31
PROVIDERS: ADMIT Internal Medicine; ATTEND Internal Medicine
DX: J44.1 Chronic obstructive pulmonary disease with (acute) exacerbation (principal); J96.22 Acute and chronic respiratory failure with hypercapnia; E43 Unspecified severe protein-calorie malnutrition; Q60.0 Renal agenesis, unilateral; Z99.81 Dependence on supplemental oxygen; J96.11 Chronic respiratory failure with hypoxia; R64 Cachexia; Z68.1 Body mass index [BMI] 19.9 or less, adult; I25.10 Atherosclerotic heart disease of native coronary artery without angina pectoris; I49.1 Atrial premature depolarization; J44.0 Chronic obstructive pulmonary disease with (acute) lower respiratory infection; J45.909 Unspecified asthma, uncomplicated; K21.9 Gastro-esophageal reflux disease without esophagitis; I10 Essential (primary) hypertension; R00.0 Tachycardia, unspecified; E78.5 Hyperlipidemia, unspecified; I25.2 Old myocardial infarction; G47.30 Sleep apnea, unspecified; M19.90 Unspecified osteoarthritis, unspecified site; F41.9 Anxiety disorder, unspecified; H40.9 Unspecified glaucoma; F17.210 Nicotine dependence, cigarettes, uncomplicated; Z88.7 Allergy status to serum and vaccine; Z87.81 Personal history of (healed) traumatic fracture; Z85.828 Personal history of other malignant neoplasm of skin; Z87.11 Personal history of peptic ulcer disease; Z82.49 Family history of ischemic heart disease and other diseases of the circulatory system; Z87.19 Personal history of other diseases of the digestive system; Z87.01 Personal history of pneumonia (recurrent); Z91.011 Allergy to milk products; Z82.5 Family history of asthma and other chronic lower respiratory diseases; Z71.6 Tobacco abuse counseling; Z90.710 Acquired absence of both cervix and uterus; Z90.49 Acquired absence of other specified parts of digestive tract; Z98.1 Arthrodesis status; Z98.42 Cataract extraction status, left eye; Z98.41 Cataract extraction status, right eye; Z79.891 Long term (current) use of opiate analgesic; Z79.51 Long term (current) use of inhaled steroids; Z79.899 Other long term (current) drug therapy
CPT/HCPCS: 36415; 71010; 80048; 80053; 80202; 82550; 82553; 83036; 83735; 84484; 85025; 85610; 85730; 87040; 87077; 87186; 93005; 94640; 94644; 94660; 96361; 96365; 96366; 99285

== ENCOUNTER 2016-05-06 11:52 | Inpatient (IN) | payer MEDICARE, OTHER ==
[2016-05-06] MEDS ORDERED: methylPREDNISolone SOD SUCCI 125 MG/2 ML VIAL IV STA (12:12)
[2016-05-06] MEDS ORDERED: IPRATROPIUM-ALBUTEROL 3 ML NEB INHALATION STA (12:12)
--- NOTE | 2016-05-06 12:21 | ED ---
SOB HPI - General Chief Complaint: Shortness of Breath Stated Complaint: JONE Time Seen by Provider: 05/06/16 12:03 Source: patient Mode of arrival: EMS Limitations: no limitations - History of Present Illness Initial Comments: This patient is a 66-year-old woman with history of COPD, who complains of worsening of her usual shortness of breath. The patient states things been getting particularly bad over last night and this morning. She has been trying her home medications without much relief. The patient is on home oxygen. Her plumbing drafter is Dr. Carrero. Patient is denying fever or chills. She denies any sputum to her cough. She is not having any chest pain. Patient denies swelling or pain to the legs. MD Complaint: shortness of breath, cough -: days(s) Consistency: constant Improves With: nothing Worsens With: nothing Known History Of: COPD Associated Symptoms: cough Treatments Prior to Arrival: oxygen, bronchodilator - Related Data Home Oxygen Therapy: Yes Home Medications Medication Instructions Recorded Confirmed Albuterol Inhaler [Ventolin Hfa 1 - 2 puff INHALATION RT-Q4H PRN 09/30/15 Inhaler] Budesonide-Formot 160-4.5 Mcg 2 puff INHALATION RT-BID 10/12/15 05/06/16 [Symbicort 160-4.5 Mcg Inhaler] HYDROcodone/APAP 7.5-325MG [[place] 1 tab PO Q8H PRN 04/18/16 05/06/16 7.5-325] Albuterol Nebulized [Ventolin 2.5 mg INHALATION RT-QID PRN 05/06/16 05/06/16 Nebulized] Atorvastatin Calcium [Lipitor] 40 mg PO HS 05/06/16 05/06/16 LORazepam [Ativan] 0.5 mg PO DAILY PRN 05/06/16 05/06/16 Losartan Potassium [Cozaar] 100 mg PO DAILY 05/06/16 05/06/16 Melatonin 3 mg PO HS 05/06/16 05/06/16 predniSONE See Taper PO DAILY 05/06/16 05/06/16 Allergies Allergy/AdvReac Type Severity Reaction Status Date / Time pneumococcal vaccine Allergy Unknown STATES SHE Verified 05/06/16 12:40 GETS PNEUMONIA Influenza Virus Vaccines Allergy Unknown Verified 05/06/16 12:40 milk AdvReac Mild Nausea Verified 05/06/16 12:40 Review of Systems ROS Statement: Those systems with pertinent positive or pertinent negative responses have been documented in the HPI. ROS Other: All systems not noted in ROS Statement are negative. Constitutional: Denies: fever, chills Respiratory: Reports: cough, dyspnea, wheezes. Denies: hemoptysis, stridor Cardiovascular: Denies: chest pain, orthopnea, edema, syncope Gastrointestinal: Denies: abdominal pain, vomiting, diarrhea, melena, hematochezia Genitourinary: Denies: dysuria, hematuria Musculoskeletal: Denies: back pain Skin: Denies: rash Neurological: Denies: headache Psychiatric: Reports: anxiety Past Medical History Past Medical History: Asthma, Cancer, COPD, Eye Disorder, GERD/Reflux, Hyperlipidemia, Hypertension, Myocardial Infarction (ID), Osteoarthritis (OA), Pneumonia, Respiratory Disorder, Sleep Apnea/CPAP/BIPAP Additional Past Medical History / Comment(s): Advanced oxygen-dependent COPD with chronic hypoxic respiratory failure and with multiple hospitalization for COPD exacerbations, born with a single left kidney, previous ID, PUD, bilateral glaucoma, skin cancer, previous history of bowel obstruction, worked [employer] at the age of 7yrs, past L arm fx and R patellar fx with surgery, edentulous. Last Myocardial Infarction Date:: 2011? History of Any Multi-Drug Resistant Organisms: None Reported Past Surgical History: Appendectomy, Back Surgery, Bowel Resection, Section, Hysterectomy, Orthopedic Surgery Additional Past Surgical History / Comment(s): 10/28/15 anterior cervical decompression fusion C3-4,C4-5,C5-6 with NIM cord monitoring, BACK SURGERY lami / FUSION/discectomy, manolo CATARACT SURGERY, LASER EYE SURGERY FOR GLAUCOMA., RIGHT KNEE SURGERY(fx kneecap). Past Anesthesia/Blood Transfusion Reactions: No Reported Reaction Past Psychological History: Anxiety Additional Psychological History / Comment(s): Pt has a son and laurie-in-law that reside with her. She uses a wheeled walker to ambulate. She does not drive-a friend takes her to [facility]. She has O2 at 3L/[place] ATC. She has a nebulizer. She is very concerned that she will not have a ride available to take her home at discharge. Smoking Status: Current every day smoker Past Alcohol Use History: Occasional Additional Past Alcohol Use History / Comment(s): Has been SMOKING FOR 59 YEARS.SMOKING SINCE 7 YEARS OLD, USED TO SMOKE 3 PPD. Since 10/12/15 admission to hospital smokes less than 4 cigarettes a day. Past Drug Use History: None Reported - Past Family History Mother Family Medical History: Myocardial Infarction (ID) Additional Family Medical History / Comment(s): Mother had a ID in her 50's Father Family Medical History: No Reported History Additional Family Medical History / Comment(s): FORM OLD AGE Brother(s) Family Medical History: Asthma, COPD Sister(s) Family Medical History: Asthma, COPD General Exam Limitations: no limitations General appearance: alert, in distress (Tachypneic), cachectic Head exam: Present: atraumatic, normocephalic Eye exam: Present: normal appearance. Absent: scleral icterus, conjunctival injection Neck exam: Present: normal inspection Respiratory exam: Present: respiratory distress, wheezes, accessory muscle use, decreased breath sounds, prolonged expiratory. Absent: rales, rhonchi, stridor , chest wall tenderness Cardiovascular Exam: Present: normal rhythm, tachycardia, normal heart sounds. Absent: systolic murmur, diastolic murmur, rubs, gallop GI/Abdominal exam: Present: soft. Absent: distended, tenderness, guarding, rebound, mass Extremities exam: Present: normal inspection, normal capillary refill. Absent: pedal edema, calf tenderness Back exam: Present: normal inspection Neurological exam: Present: alert Skin exam: Present: warm, dry, intact, normal color. Absent: rash, cyanosis, diaphoretic, petechiae, mottled Course Vital Signs 05/06/16 05/06/16 05/06/16 11:56 12:09 12:38 Temperature 99.1 F Pulse Rate 126 H 109 H Respiratory 32 H 32 H Rate Blood Pressure 181/95 O2 Sat by Pulse 81 L Oximetry 05/06/16 05/06/16 05/06/16 12:49 13:20 14:01 Temperature 99.1 F Pulse Rate 111 H 108 H 107 H Respiratory 30 H Rate Blood Pressure 151/67 O2 Sat by Pulse 98 Oximetry Medical Decision Making - Lab Data Result diagrams: 05/06/16 12:00 05/06/16 12:00 Lab Results 01/27/17 01/27/17 01/27/17 Range/Units 12:00 12:00 12:00 WBC 15.0 H (3.8-10.6) k/uL RBC 4.34 (3.80-5.40) m/uL Hgb 11.9 (11.4-16.0) gm/dL Hct 38.3 (34.0-46.0) % MCV 88.3 (80.0-100.0) fL MCH 27.5 (25.0-35.0) pg MCHC 31.1 (31.0-37.0) g/dL RDW 19.9 H (11.5-15.5) % Plt Count 290 (150-450) k/uL Neutrophils % 84 % Lymphocytes % 10 % Monocytes % 4 % Eosinophils % 1 % Basophils % 0 % Neutrophils # 12.6 H (1.3-7.7) k/uL Lymphocytes # 1.6 (1.0-4.8) k/uL Monocytes # 0.6 (0-1.0) k/uL Eosinophils # 0.1 (0-0.7) k/uL Basophils # 0.0 (0-0.2) k/uL Hypochromasia Slight Anisocytosis Slight D-Dimer 0.49 (<0.60) mg/L FEU Sodium (137-145) mmol/L Potassium (3.5-5.1) mmol/L Chloride (98-107) mmol/L Carbon Dioxide (22-30) mmol/L Anion Gap mmol/L BUN (7-17) mg/dL Creatinine (0.52-1.04) mg/dL Est GFR (MDRD) Af Amer (>60 ml/min/1.73 sqM) Est GFR (MDRD) Non-Af (>60 ml/min/1.73 sqM) Glucose (74-99) mg/dL Plasma Lactic Acid [place] (0.7-2.0) mmol/L Calcium (8.4-10.2) mg/dL Troponin I <0.012 (0.000-0.034) ng/mL NT-Pro-B Natriuret Pep pg/mL Urine Color Urine Appearance (Clear) Urine pH (5.0-8.0) Ur Specific [place] (1.001-1.035) Urine Protein (Negative) Urine Glucose (UA) (Negative) Urine Ketones (Negative) Urine Blood (Negative) Urine Nitrate (Negative) Urine Bilirubin (Negative) Urine Urobilinogen (<2.0) mg/dL Ur Leukocyte Esterase (Negative) Urine RBC (0-5) /hpf Urine WBC (0-5) /hpf Ur Squamous Epith Cells (0-4) /hpf Amorphous Sediment (None) /hpf Urine Bacteria (None) /hpf Urine Mucus (None) /hpf 05/06/16 05/06/16 05/06/16 Range/Units 12:00 12:00 12:00 WBC (3.8-10.6) k/uL RBC (3.80-5.40) m/uL Hgb (11.4-16.0) gm/dL Hct (34.0-46.0) % MCV (80.0-100.0) fL MCH (25.0-35.0) pg MCHC (31.0-37.0) g/dL RDW (11.5-15.5) % Plt Count (150-450) k/uL Neutrophils % % Lymphocytes % % Monocytes % % Eosinophils % % Basophils % % Neutrophils # (1.3-7.7) k/uL Lymphocytes # (1.0-4.8) k/uL Monocytes # (0-1.0) k/uL Eosinophils # (0-0.7) k/uL Basophils # (0-0.2) k/uL Hypochromasia Anisocytosis D-Dimer (<0.60) mg/L FEU Sodium 140 (137-145) mmol/L Potassium 4.4 (3.5-5.1) mmol/L Chloride 105 (98-107) mmol/L Carbon Dioxide 23 (22-30) mmol/L Anion Gap 12 mmol/L BUN 20 H (7-17) mg/dL Creatinine 0.55 (0.52-1.04) mg/dL Est GFR (MDRD) Af Amer >60 (>60 ml/min/1.73 sqM) Est GFR (MDRD) Non-Af >60 (>60 ml/min/1.73 sqM) Glucose 131 H (74-99) mg/dL Plasma Lactic Acid [place] 1.0 (0.7-2.0) mmol/L Calcium 9.3 (8.4-10.2) mg/dL Troponin I (0.000-0.034) ng/mL NT-Pro-B Natriuret Pep 53 pg/mL Urine Color Urine Appearance (Clear) Urine pH (5.0-8.0) Ur Specific [place] (1.001-1.035) Urine Protein (Negative) Urine Glucose (UA) (Negative) Urine Ketones (Negative) Urine Blood (Negative) Urine Nitrate (Negative) Urine Bilirubin (Negative) Urine Urobilinogen (<2.0) mg/dL Ur Leukocyte Esterase (Negative) Urine RBC (0-5) /hpf Urine WBC (0-5) /hpf Ur Squamous Epith Cells (0-4) /hpf Amorphous Sediment (None) /hpf Urine Bacteria (None) /hpf Urine Mucus (None) /hpf 05/06/16 Range/Units 13:30 WBC (3.8-10.6) k/uL RBC (3.80-5.40) m/uL Hgb (11.4-16.0) gm/dL Hct (34.0-46.0) % MCV (80.0-100.0) fL MCH (25.0-35.0) pg MCHC (31.0-37.0) g/dL RDW (11.5-15.5) % Plt Count (150-450) k/uL Neutrophils % % Lymphocytes % % Monocytes % % Eosinophils % % Basophils % % Neutrophils # (1.3-7.7) k/uL Lymphocytes # (1.0-4.8) k/uL Monocytes # (0-1.0) k/uL Eosinophils # (0-0.7) k/uL Basophils # (0-0.2) k/uL Hypochromasia Anisocytosis D-Dimer (<0.60) mg/L FEU Sodium (137-145) mmol/L Potassium (3.5-5.1) mmol/L Chloride (98-107) mmol/L Carbon Dioxide (22-30) mmol/L Anion Gap mmol/L BUN (7-17) mg/dL Creatinine (0.52-1.04) mg/dL Est GFR (MDRD) Af Amer (>60 ml/min/1.73 sqM) Est GFR (MDRD) Non-Af (>60 ml/min/1.73 sqM) Glucose (74-99) mg/dL Plasma Lactic Acid [place] (0.7-2.0) mmol/L Calcium (8.4-10.2) mg/dL Troponin I (0.000-0.034) ng/mL NT-Pro-B Natriuret Pep pg/mL Urine Color Yellow Urine Appearance Clear (Clear) Urine pH 5.5 (5.0-8.0) Ur Specific [place] 1.022 (1.001-1.035) Urine Protein Trace H (Negative) Urine Glucose (UA) Negative (Negative) Urine Ketones 2+ H (Negative) Urine Blood Negative (Negative) Urine Nitrate Negative (Negative) Urine Bilirubin Negative (Negative) Urine Urobilinogen 2.0 (<2.0) mg/dL Ur Leukocyte Esterase Trace H (Negative) Urine RBC 1 (0-5) /hpf Urine WBC 3 (0-5) /hpf Ur Squamous Epith Cells 4 (0-4) /hpf Amorphous Sediment Rare H (None) /hpf Urine Bacteria Rare H (None) /hpf Urine Mucus Rare H (None) /hpf - EKG Data EKG shows normal: sinus rhythm, axis (Normal), intervals (Normal QRS and QT. The IL interval is short at 110ms.), QRS complexes (Normal), ST-T waves (Normal) Rate: tachycardia (Rate 129) Disposition Clinical Impression: COPD exacerbation Disposition: ADMITTED IP TO THIS HOSP Condition: Poor
[2016-05-06 12:27] LABS: Anisocytosis Slight; Basophils % (A) 0 %; CH 27.3; Eosinophils # (A) 0.1 k/uL (0-0.7); Eosinophils % (A) 1 %; HCT 38.3 % (34.0-46.0); HDW 2.54; HGB 11.9 gm/dL (11.4-16.0); Hypochromasia Slight; Luc # (Auto) 0.13; Luc % (Auto) 1; Lymphocytes # (A) 1.6 k/uL (1.0-4.8); Lymphocytes % (A) 10 %; MCH 27.5 pg (25.0-35.0); MCHC 31.1 g/dL (31.0-37.0); MCV 88.3 fL (80.0-100.0); Mean Platelet Volume 6.8; Monocytes # (A) 0.6 k/uL (0-1.0); Monocytes % (A) 4 %; Neutrophils # (A) 12.6 k/uL (1.3-7.7); Neutrophils % (A) 84 %; RBC 4.34 m/uL (3.80-5.40); RDW 19.9 % (11.5-15.5); WBC (Perox) 15.85
[2016-05-06 12:38] LABS: Anion Gap 12 mmol/L; Blood Urea Nitrogen 20 mg/dL (7-17); Calcium 9.3 mg/dL (8.4-10.2); Carbon Dioxide 23 mmol/L (22-30); Chloride 105 mmol/L (98-107); Glucose 131 mg/dL (74-99); Non-African American GFR(MDRD) >60 (>60 ml/min/1.73 sqM); Potassium 4.4 mmol/L (3.5-5.1); Sodium 140 mmol/L (137-145)
--- NOTE | 2016-05-06 13:20 | XR ---
EXAMINATION TYPE: XR chest 1V portable DATE OF EXAM: 05/06/2016 1:16 PM COMPARISON: 04/18/2016 HISTORY: Shortness of breath TECHNIQUE: Single frontal view of the chest is obtained. FINDINGS: There is no focal air space opacity, pleural effusion, or pneumothorax seen. The cardiac silhouette size is within normal limits. The osseous structures are intact. Calcified granuloma not ed. Right apical density and consolidation is stable. COPD noted. Scoliotic curvature of the spine no amber. Postsurgical change overlying the cervical spine. IMPRESSION: 1 COPD. There is a right apical area of consolidation or mass which appears stable.
[2016-05-06] MEDS ORDERED: ALBUTEROL NEBULIZED 2.5 MG/3 ML INHALATION STA (13:31)
[2016-05-06 14:01] LABS: Amorphous Sediment,Urine Rare /hpf; Appearance,Urine Clear (Clear); Bacteria,Urine Rare /hpf; Bilirubin,Urine Negative (Negative); Glucose,Urine (UA) Negative (Negative); Ketones,Urine 2+ (Negative); Leukocyte Esterase,Urine Trace (Negative); Mucus,Urine Rare /hpf; Nitrite,Urine Negative (Negative); PH, Urine 5.5 (5.0-8.0); Particle Count 4053; Protein,Urine Trace (Negative); RBC,Urine 1 /hpf (0-5); Specific Gravity,Urine 1.022 (1.001-1.035); Squamous Epithelial Cell,Urine 4 /hpf (0-4); UA Billing (MACRO vs. MICRO) MICRO; WBC,Urine 3 /hpf (0-5)
[2016-05-06] MEDS ORDERED: ALBUTEROL NEBULIZED 2.5 MG/3 ML INHALATION PRN (14:27)
[2016-05-06] MEDS: IPRATROPIUM-ALBUTEROL 3 ML NEB INHALATION SCH ×3 (15:33→23:52)
[2016-05-06] MEDS ORDERED: LORazepam 0.5 MG TAB PO PRN (16:32)
[2016-05-06] MEDS ORDERED: IPRATROPIUM-ALBUTEROL 3 ML NEB INHALATION PRN (16:33)
[2016-05-06] MEDS: HYDROcodone/APAP 7.5-325MG 1 EACH TAB PO PRN ×2 (17:12→23:51)
[2016-05-06] MEDS: methylPREDNISolone SOD SUCCI 125 MG/2 ML VIAL IV SCH ×2 (17:16→23:52)
[2016-05-06 17:32] LABS: Glucose,Whole Blood 120 mg/dL (75-99)
[2016-05-06] MEDS: INSULIN LISPRO (humaLOG) 300 UNIT/3 ML VIAL SQ SCH ×2 (17:41→21:21)
[2016-05-06 19:42] LABS: Hemoglobin A1C 5.6 % (4.2-6.1)
[2016-05-06] MEDS ORDERED: SYMBICORT 160-4.5 MCG INHALER INHALATION SCH (20:00)
[2016-05-06] MEDS: MELATONIN 3 MG TABLET PO SCH (20:27)
[2016-05-06] MEDS: ATORVASTATIN 40 MG TAB PO SCH (20:27)
[2016-05-06] MEDS: BUDESONIDE 0.5 MG/2 ML NEBU INHALATION SCH (20:47)
[2016-05-06 21:06] LABS: Glucose,Whole Blood 190 mg/dL (75-99)
[2016-05-07] MEDS: IPRATROPIUM-ALBUTEROL 3 ML NEB INHALATION SCH ×6 (03:55→23:44)
[2016-05-07] MEDS: methylPREDNISolone SOD SUCCI 125 MG/2 ML VIAL IV SCH ×3 (05:56→17:13)
[2016-05-07 07:44] LABS: Glucose,Whole Blood 206 mg/dL (75-99)
[2016-05-07] MEDS: BUDESONIDE 0.5 MG/2 ML NEBU INHALATION SCH (07:49)
[2016-05-07] MEDS: INSULIN LISPRO (humaLOG) 300 UNIT/3 ML VIAL SQ SCH ×4 (08:00→21:09)
[2016-05-07] MEDS: HYDROcodone/APAP 7.5-325MG 1 EACH TAB PO PRN ×2 (08:01→23:59)
[2016-05-07] MEDS: LOSARTAN 50 MG TAB PO SCH (08:01)
--- NOTE | 2016-05-07 11:48 | P.CNPUL ---
History of Present Illness Consult date: 05/07/16 Reason for consult: dyspnea, cough, COPD, abnormal CXR/CT Chief complaint: Shortness of breath History of present illness: 66-year-old female well-known to our service. She has advanced COPD. I see her in the office for her COPD. Anyway the patient's feeling much better now. Was in the emergency room last night not doing very well according to the nurses in the ER doctor who saw her. She looks like 1 million bucks today. I told her she probably could go home. Anyway the patient is feeling better. When she came into the emergency room she was quite significantly profoundly short of breath. She states she will is because she was sitting on on her front porch ports. No fever no chills. No nausea vomiting or diarrhea. No phlegm production. Just tightness shortness of breath and wheezing. Much of that has gone away at this time. Review of Systems A 12 point review of system is positive for shortness of breath cough minimal phlegm production wheezing and tightness in the chest. The rest of the 12 point review of system is unremarkable. Again today she looks much better than she did yesterday. She apparently was quite short of breath yesterday in the emergency department. Past Medical History Past Medical History: Asthma, Cancer, COPD, Eye Disorder, GERD/Reflux, Hyperlipidemia, Hypertension, Myocardial Infarction (IA), Osteoarthritis (OA), Pneumonia, Respiratory Disorder, Sleep Apnea/CPAP/BIPAP Additional Past Medical History / Comment(s): Advanced oxygen-dependent COPD with chronic hypoxic respiratory failure and with multiple hospitalization for COPD exacerbations, born with a single left kidney, previous IA, PUD, bilateral glaucoma, skin cancer, previous history of bowel obstruction, worked [employer] at the age of 7yrs, past L arm fx and R patellar fx with surgery, edentulous. Last Myocardial Infarction Date:: 2011? History of Any Multi-Drug Resistant Organisms: None Reported Past Surgical History: Appendectomy, Back Surgery, Bowel Resection, Section, Hysterectomy, Orthopedic Surgery Additional Past Surgical History / Comment(s): 10/28/15 anterior cervical decompression fusion C3-4,C4-5,C5-6 with NIM cord monitoring, BACK SURGERY lami / FUSION/discectomy, manolo CATARACT SURGERY, LASER EYE SURGERY FOR GLAUCOMA., RIGHT KNEE SURGERY(fx kneecap). Past Anesthesia/Blood Transfusion Reactions: No Reported Reaction Past Psychological History: Anxiety Additional Psychological History / Comment(s): Pt has a son and laurie-in-law that reside with her. She uses a wheeled walker to ambulate. She does not drive-a friend takes her to [facility]. She has O2 at 3L/[place] AT[facility]. She has a nebulizer. Smoking Status: Former smoker Past Alcohol Use History: Occasional Additional Past Alcohol Use History / Comment(s): Has been SMOKING FOR 59 YEARS.SMOKING SINCE 7 YEARS OLD, USED TO SMOKE 3 PPD. Since 10/12/15 stopped smoking Past Drug Use History: None Reported - Past Family History Mother Family Medical History: Myocardial Infarction (IA) Additional Family Medical History / Comment(s): Mother had a IA in her 50's Father Family Medical History: No Reported History Additional Family Medical History / Comment(s): FORM OLD AGE Brother(s) Family Medical History: Asthma, COPD Sister(s) Family Medical History: Asthma, COPD Medications and Allergies Home Medications Medication Instructions Recorded Confirmed Type Albuterol Inhaler [Ventolin Hfa 1 - 2 puff INHALATION RT-Q4H PRN 09/30/15 History Inhaler] Budesonide-Formot 160-4.5 Mcg 2 puff INHALATION RT-BID 10/12/15 05/06/16 History [Symbicort 160-4.5 Mcg Inhaler] HYDROcodone/APAP 7.5-325MG [[place] 1 tab PO Q8H PRN 04/18/16 05/06/16 History 7.5-325] Albuterol Nebulized [Ventolin 2.5 mg INHALATION RT-QID PRN 05/06/16 05/06/16 History Nebulized] Atorvastatin Calcium [Lipitor] 40 mg PO HS 05/06/16 05/06/16 History LORazepam [Ativan] 0.5 mg PO DAILY PRN 05/06/16 05/06/16 History Losartan Potassium [Cozaar] 100 mg PO DAILY 05/06/16 05/06/16 History Melatonin 3 mg PO HS 05/06/16 05/06/16 History predniSONE See Taper PO DAILY 05/06/16 05/06/16 History Allergies Allergy/AdvReac Type Severity Reaction Status Date / Time pneumococcal vaccine Allergy Unknown STATES SHE Verified 05/06/16 12:40 GETS PNEUMONIA Influenza Virus Vaccines Allergy Unknown Verified 05/06/16 12:40 milk AdvReac Mild Nausea Verified 05/06/16 12:40 Physical Exam Osteopathic Statement: *. No significant issues noted on an osteopathic structural exam other than those noted in the History and Physical/Consult. Vitals: Vital Signs Temp Pulse Pulse Resp BP BP Pulse Ox 05/07/16 08:00 100 05/07/16 07:49 100 05/07/16 07:00 96.5 F L 96 20 120/69 99 05/07/16 04:05 92 05/07/16 03:55 92 05/07/16 00:04 96 05/06/16 23:52 92 05/06/16 21:33 97.7 F 91 20 126/73 100 05/06/16 21:04 100 05/06/16 20:49 102 H 05/06/16 19:44 108 H 24 05/06/16 18:30 108 H 05/06/16 18:17 112 H 05/06/16 15:46 112 H 05/06/16 15:33 108 H 05/06/16 15:00 983 F H 117 H 28 H 157/101 97 Intake and Output 05/06/16 05/07/16 05/07/16 22:59 06:59 14:59 Intake Total 100 200 Balance 100 200 Intake: Oral 100 200 Other: Voiding Method Bedside Commode # Voids 1 2 No acute distress, oriented 3. HEENT examination is grossly unremarkable. Next memory to moist. Supple. Full range of motion. She does have hypertrophied sternocleidomastoid muscles consistent with underlying COPD. Neck veins are flat. Cardiovascular examination reveals regular rhythm rate. S1 and S2 normal. No S3-S4. No murmur. Lungs reveal relatively clear but diminished breath sounds. Breath sounds are diminished throughout. May be just some very fine high-pitched expiratory wheezes only on forced maneuver. No rhonchi. No crackles. Abdomen soft bowel sounds are heard. Extremities are intact. Results - Laboratory Findings CBC and BMP: 05/06/16 12:00 05/06/16 12:00 PT/INR, D-dimer D-Dimer 0.49 mg/L FEU (<0.60) 05/06/16 12:00 Abnormal lab findings: Abnormal Labs 05/06/16 05/06/16 05/07/16 17:30 20:56 07:11 POC Glucose (mg/dL) 120 H 190 H 206 H - Diagnostic Findings Chest x-ray: image reviewed (Chest x-ray labs medications are all reviewed.)
[2016-05-07 12:14] LABS: Glucose,Whole Blood 123 mg/dL (75-99)
[2016-05-07] MEDS ORDERED: LORazepam 0.5 MG TAB PO PRN (13:05)
[2016-05-07 17:13] VITALS: BMI 16.9
[2016-05-07 17:16] LABS: Glucose,Whole Blood 133 mg/dL (75-99)
[2016-05-07] MEDS ORDERED: ALPRAZolam 0.25 MG TAB PO PRN (18:57)
[2016-05-07] MEDS ORDERED: TEMAZEPAM 15 MG CAP PO PRN (18:57)
[2016-05-07] MEDS: SYMBICORT 160-4.5 MCG INHALER INHALATION SCH (19:19)
[2016-05-07] MEDS: ATORVASTATIN 40 MG TAB PO SCH (20:00)
[2016-05-07] MEDS: MELATONIN 3 MG TABLET PO SCH (20:00)
[2016-05-07] MEDS: SULFAMETHOX-TMP 800-160MG 1 EACH TAB PO SCH (20:00)
[2016-05-07] MEDS: HEPARIN SODIUM,PORCINE 5,000 UNIT/ML 1 ML VIAL SQ SCH (20:01)
[2016-05-07 21:04] LABS: Glucose,Whole Blood 194 mg/dL (75-99)
[2016-05-08] MEDS: IPRATROPIUM-ALBUTEROL 3 ML NEB INHALATION SCH ×3 (03:46→12:24)
[2016-05-08] MEDS: methylPREDNISolone SOD SUCCI 125 MG/2 ML VIAL IV SCH ×2 (06:18)
--- NOTE | 2016-05-08 07:38 | HP ---
DATE OF ADMISSION: DATE OF SERVICE: 05/07/2016 CHIEF COMPLAINT: Shortness of breath. HISTORY OF PRESENT ILLNESS: This 66-year-old woman with a past medical history of multiple medical problems, including history of asthma, chronic obstructive pulmonary disease, history of DJD, history of hypertension, hyperlipidemia, history of myocardial infarction, history of advanced chronic obstructive pulmonary disease, history of anxiety being followed by Dr. Cornejo in the outpatient setting was complaining of shortness of breath over several days. The patient apparently was smoking and patient came to [facility] and admitted for further evaluation and treatment. There is no history of any fever, rigors, chills. No history of headache, loss of consciousness or seizures. No history of any sputum or hemoptysis either. PAST MEDICAL HISTORY: History of COPD, history of asthma, history of gastroesophageal reflux disease, hypertension, hyperlipidemia, myocardial infarction, history of DJD, sleep apnea, history of back surgery, appendectomy. Medications prior to admission include the home medications are: 1. Albuterol 2.5 q.i.d. p.r.n. 2. Ativan 0.5 mg daily p.r.n. 3. Symbicort 160/4.5, 2 puffs b.i.d. 4. Ventolin HFA 1 to 2 puffs q.4 p.r.n. 5. Prednisone taper daily. 6. [place] 7.5 q.8 p.r.n. 7. Melatonin 3 mg q.h.s. 8. Losartan 100 mg p.o. daily. 9. Lipitor 40 mg q.h.s. ALLERGIES: PNEUMOCOCCAL VACCINE, INFLUENZA VIRUS AND MILK. FAMILY HISTORY: History of myocardial infarction in the family. SOCIAL HISTORY: No history of current smoking. Previous history of smoking per chart. REVIEW OF SYSTEMS: ENT: No diminished vision. No diminished hearing. CARDIOVASCULAR: No angina. RESPIRATORY: As mentioned earlier. GI: No nausea. : No dysuria. NERVOUS SYSTEM: No numbness or weakness. ALLERGY/IMMUNOLOGY: No asthma or hayfever. MUSCULOSKELETAL: As mentioned earlier. HEMATOLOGY: No history of anemia. ENDOCRINE: No history of diabetes or hypothyroidism. CONSTITUTIONAL: As mentioned earlier. DERMATOLOGY: Negative. RHEUMATOLOGY: Negative. PSYCHIATRY: As mentioned earlier. PHYSICAL EXAMINATION: Alert and oriented x3. Pulse 108, blood pressure 105/59, respirations 20, temperature 98.2, , pulse ox 98% on 4-L. HEENT: Conjunctivae normal. NECK: No jugular venous distention. CARDIOVASCULAR: S1 and S2, muffled. RESPIRATORY: Breath sounds diminished at the bases. Bilateral scattered rhonchi and crackles. Breathing efforts are markedly increased. Expiratory wheezing also present. ABDOMEN: Soft, nontender, no mass palpable. LEGS: No edema, no swelling. NERVOUS SYSTEM: Higher function as mentioned. Moves all four limbs. No focal motor deficits. LYMPHATIC: No lymphadenopathy in the neck, axillae or groin. SKIN: No ulcer, rash or bleeding. LABS: Accu-Cheks 206, 123, 133. Other labs are WBC 15, other labs are noted. ASSESSMENT: 1. Chronic obstructive pulmonary disease, acute exacerbation, with acute purulent tracheobronchitis. 2. History of nicotine dependence. 3. Increased random blood sugar. 4. Increased WBC, possibly secondary to tracheobronchitis. 5. Asthma, chronic obstructive pulmonary disease history. 6. Gastroesophageal reflux disease. 7. Hypertension. 8. Hyperlipidemia. 9. History of myocardial infarction. 10. History of degenerative joint disease. 11. History of sleep apnea. 12. History of chronic hypoxic respiratory failure, on home oxygen. 13. Advanced chronic obstructive pulmonary disease. 14. Bilateral glaucoma. 15. Peptic ulcer disease. 16. Previous history of bowel obstruction. 17. History of appendectomy. 18. History of back surgery. 19. History of bowel resection. 20. History of degenerative joint disease, cervical fusion C3-C4, C4-C5 and C5-C6. 21. History of anxiety, not otherwise specified. 22. FULL CODE. RECOMMENDATIONS AND DISCUSSION: In this 66-year-old woman who presented with multiple complex medical issues, we will monitor the patient closely. Continue the current medications. Continue symptomatic treatment. Otherwise, at this time I would recommend continue with the bronchodilators, continue with IV steroids. Monitor sugars closely. Otherwise resume the home medication. Guarded prognosis because of multiple complex medical issues. Further recommendations to follow.
[2016-05-08 07:41] LABS: Glucose,Whole Blood 123 mg/dL (75-99)
[2016-05-08 08:03] VITALS: BP 117/67; RESP 20; TEMP 98.3
[2016-05-08] MEDS: SULFAMETHOX-TMP 800-160MG 1 EACH TAB PO SCH (08:09)
[2016-05-08] MEDS: LOSARTAN 50 MG TAB PO SCH (08:10)
[2016-05-08] MEDS: HEPARIN SODIUM,PORCINE 5,000 UNIT/ML 1 ML VIAL SQ SCH (08:10)
[2016-05-08] MEDS: INSULIN LISPRO (humaLOG) 300 UNIT/3 ML VIAL SQ SCH ×2 (08:10→13:43)
[2016-05-08] MEDS: HYDROcodone/APAP 7.5-325MG 1 EACH TAB PO PRN (08:11)
[2016-05-08] MEDS: SYMBICORT 160-4.5 MCG INHALER INHALATION SCH (08:58)
[2016-05-08 09:14] LABS: Anisocytosis Slight; Basophils # (A) 0.2 k/uL (0-0.2); Basophils % (A) 2 %; CH 27.6; CHCM 31.5; Eosinophils % (A) 0 %; HCT 34.4 % (34.0-46.0); HDW 2.54; HGB 10.6 gm/dL (11.4-16.0); Hypochromasia Slight; Luc # (Auto) 0.04; Luc % (Auto) 0; Lymphocytes # (A) 0.1 k/uL (1.0-4.8); Lymphocytes % (A) 1 %; MCH 27.1 pg (25.0-35.0); MCHC 30.8 g/dL (31.0-37.0); MCV 87.8 fL (80.0-100.0); Mean Platelet Volume 8.3; Monocytes # (A) 0.2 k/uL (0-1.0); Monocytes % (A) 2 %; Neutrophils # (A) 8.4 k/uL (1.3-7.7); Neutrophils % (A) 94 %; RBC 3.92 m/uL (3.80-5.40); RDW 19.7 % (11.5-15.5); WBC 8.9 k/uL (3.8-10.6); WBC (Perox) 9.86
[2016-05-08 09:20] LABS: Anion Gap 9 mmol/L; Blood Urea Nitrogen 15 mg/dL (7-17); Calcium 9.4 mg/dL (8.4-10.2); Carbon Dioxide 26 mmol/L (22-30); Chloride 98 mmol/L (98-107); Glucose 126 mg/dL (74-99); Non-African American GFR(MDRD) >60 (>60 ml/min/1.73 sqM); Potassium 5.3 mmol/L (3.5-5.1); Sodium 133 mmol/L (137-145)
--- NOTE | 2016-05-08 10:55 | P.PN ---
Subjective Progress note dated 05/08/2016 This is a patient with advanced COPD. She is well-known to our service. She is doing much better. She will would like to be discharged home. Apparently told the emergency room doctor that she never really wanted be admitted in the first place. She apparently told him that she wanted some steroids IV or IM and some oral prednisone and some antibiotics like Dr. Carrero does and to please semi-home. They admitted her instead. Anyway I just told the nurse on the fourth floor that she could be discharged home. Objective - Vital Signs Vital signs: Vital Signs Temp 98.3 F 05/08/16 07:00 Pulse 100 05/08/16 09:14 Resp 20 05/08/16 08:00 BP 117/67 05/08/16 07:00 Pulse Ox 100 05/08/16 07:00 Intake & Output 05/07/16 05/08/16 05/08/16 18:59 06:59 18:59 Intake Total 700 Balance 700 Weight 40.823 kg Intake: Oral 700 Other: Voiding Method Bedside Commode Bedside Commode # Voids 2 1 - Exam No acute distress, oriented 3. Wearing nasal O2. HEENT examination is grossly unremarkable. Mucous membranes are moist. Supple. Full range of motion. No adenopathy. Cardiovascular examination reveals regular rhythm rate. S1-S2 normal. Lungs reveal a few scattered wheezes or rhonchi. Breath sounds diminished. This prolongation. Abdomen soft bowel sounds are heard. Extremities are intact. - Labs CBC & Chem 7: 05/08/16 08:16 05/08/16 08:16 Labs: Abnormal Lab Results - Last 24 Hours (Table) 05/07/16 05/07/16 05/07/16 Range/Units 11:56 16:58 20:52 Hgb (11.4-16.0) gm/dL MCHC (31.0-37.0) g/dL RDW (11.5-15.5) % Neutrophils # (1.3-7.7) k/uL Lymphocytes # (1.0-4.8) k/uL Sodium (137-145) mmol/L Potassium (3.5-5.1) mmol/L Creatinine (0.52-1.04) mg/dL Glucose (74-99) mg/dL POC Glucose (mg/dL) 123 H 133 H 194 H (75-99) mg/dL 05/08/16 05/08/16 05/08/16 Range/Units 07:23 08:16 08:16 Hgb 10.6 L (11.4-16.0) gm/dL MCHC 30.8 L (31.0-37.0) g/dL RDW 19.7 H (11.5-15.5) % Neutrophils # 8.4 H (1.3-7.7) k/uL Lymphocytes # 0.1 L (1.0-4.8) k/uL Sodium 133 L (137-145) mmol/L Potassium 5.3 H (3.5-5.1) mmol/L Creatinine 0.50 L (0.52-1.04) mg/dL Glucose 126 H (74-99) mg/dL POC Glucose (mg/dL) 123 H (75-99) mg/dL Assessment and Plan Plan: Plan From my perspective the patient could be discharged home. She should follow-up with her primary physician and also with me. Additional recommendations suggestions are forthcoming. Prognosis is guarded. Time with Patient: Less than 30
[2016-05-08 12:00] LABS: Glucose,Whole Blood 166 mg/dL (75-99)
[2016-05-08 12:35] VITALS: PULSE 100
[2016-05-09] MEDS ORDERED: predniSONE 20 MG TAB PO SCH (09:00)
--- NOTE | 2016-05-09 15:15 | DS ---
DATE OF ADMISSION: 05/06/2016 DATE OF DISCHARGE: 05/08/2016 DATE OF SERVICE: 05/08/2016 FINAL DIAGNOSES: 1. Chronic obstructive pulmonary disease acute exacerbation with acute purulent tracheobronchitis. 2. History of nicotine dependence. 3. History of noncompliance. 4. Increased random blood sugar. 5. Increased WBC secondary to tracheobronchitis associated chronic obstructive pulmonary disease. 6. Gastroesophageal reflux disease. 7. Hypertension. 8. Hyperlipidemia. 9. History of myocardial infarction. 10. History of degenerative joint disease. 11. History sleep apnea. 12. History of chronic hypoxic respiratory failure, on home oxygen. 13. Advanced chronic obstructive pulmonary disease. 14. Bilateral glaucoma. 15. Peptic ulcer disease. 16. Previous history of bowel obstruction. 17. History of appendectomy. 18. History of back surgery. 19. History of bowel resection. 20. History of degenerative joint disease, cervical fusion, C3-4, C4-5 and C5-6. 21. History of anxiety not otherwise specified. 22. FULL CODE. DISCHARGE DISPOSITION: The patient will be discharged in a stable condition with guarded prognosis. Dr. Carrero cleared the patient for discharge. HISTORY OF PRESENT ILLNESS: This is a 65-year-old woman with a past medical history of multiple medical problems as mentioned earlier being followed by Dr. Cornejo in the outpatient setting admitted with shortness of breath and COPD acute exacerbation. The patient was treated with steroids and bronchodilators, improved significantly. On exam, vitals are stable. CARDIOVASCULAR SYSTEM: S1, S2, muffled. ABDOMEN: Soft. NERVOUS SYSTEM: No focal deficits. Dr. Carrero saw the patient and cleared the patient for discharge with the following advice: 1. Diet is cardiac. 2. Activity limited until followup. 3. Follow up with Dr. Cornejo in 2 to 3 days. 4. Follow up with Dr. Carrero in 2 weeks. Medications are: 1. Albuterol 1 to 2 puffs q.6 p.r.n. 2. Albuterol nebulizer q.i.d. and p.r.n. 3. Lipitor 40 mg q.h.s. 4. Symbicort 160/4.5 two puffs b.i.d. 5. [place] 7.5 q.8 p.r.n. 6. Atrovent q.i.d. and p.r.n. 7. Ativan 0.5 mg daily p.r.n. 8. Cozaar 100 mg p.o. daily. 9. Melatonin 3 mg p.o. q.h.s. 10. Bactrim DS 1 p.o. b.i.d. for 5 days. 11. No smoking. 12. Prednisone taper that will 40 mg daily for 3 days, 30 for 3 days; 20 for 3 days, 10 for 3 days and then stop.
== END 2016-05-08 14:12 | disposition home or self-care (01) | DRG 191 ==
LOC: EC 11:52 → 4MS4W 14:30
PROVIDERS: ADMIT Internal Medicine; ATTEND Internal Medicine
DX: J44.0 Chronic obstructive pulmonary disease with (acute) lower respiratory infection (principal); J96.11 Chronic respiratory failure with hypoxia; Q60.0 Renal agenesis, unilateral; Z99.81 Dependence on supplemental oxygen; I25.2 Old myocardial infarction; J44.1 Chronic obstructive pulmonary disease with (acute) exacerbation; J20.9 Acute bronchitis, unspecified; J45.909 Unspecified asthma, uncomplicated; F17.210 Nicotine dependence, cigarettes, uncomplicated; R00.0 Tachycardia, unspecified; D72.829 Elevated white blood cell count, unspecified; R73.09 Other abnormal glucose; G47.30 Sleep apnea, unspecified; I10 Essential (primary) hypertension; E78.5 Hyperlipidemia, unspecified; K21.9 Gastro-esophageal reflux disease without esophagitis; F41.9 Anxiety disorder, unspecified; K08.109 Complete loss of teeth, unspecified cause, unspecified class; H40.9 Unspecified glaucoma; M47.812 Spondylosis without myelopathy or radiculopathy, cervical region; Z82.49 Family history of ischemic heart disease and other diseases of the circulatory system; Z85.828 Personal history of other malignant neoplasm of skin; Z88.7 Allergy status to serum and vaccine; Z87.19 Personal history of other diseases of the digestive system; Z87.81 Personal history of (healed) traumatic fracture; Z90.49 Acquired absence of other specified parts of digestive tract; Z87.11 Personal history of peptic ulcer disease; Z87.01 Personal history of pneumonia (recurrent); Z91.011 Allergy to milk products; Z79.891 Long term (current) use of opiate analgesic; Z79.51 Long term (current) use of inhaled steroids; Z79.899 Other long term (current) drug therapy; Z98.1 Arthrodesis status; Z71.6 Tobacco abuse counseling; Z90.710 Acquired absence of both cervix and uterus; Z98.42 Cataract extraction status, left eye; Z98.41 Cataract extraction status, right eye; Z82.5 Family history of asthma and other chronic lower respiratory diseases; Z91.19 Patient's noncompliance with other medical treatment and regimen
CPT/HCPCS: 36415; 71010; 80048; 81001; 83036; 83605; 83880; 84484; 85025; 85379; 87040; 93005; 94640; 94760; 99285

== ENCOUNTER 2016-06-12 11:47 | Inpatient (IN) | payer MEDICARE, OTHER ==
[2016-06-12] MEDS ORDERED: methylPREDNISolone SOD SUCCI 125 MG/2 ML VIAL IV STA (11:49)
[2016-06-12] MEDS ORDERED: ALBUTEROL NEBULIZED 2.5 MG/3 ML INHALATION STA (11:49)
[2016-06-12] MEDS ORDERED: IPRATROPIUM 0.5 MG/2.5 ML NEBU INHALATION STA (11:49)
[2016-06-12] MEDS ORDERED: LORazepam 2 MG/ML SYRINGE IV STA (11:53)
[2016-06-12] MEDS ORDERED: MORPHINE SULFATE 4 MG/ML SYRINGE IVP STA ×2 (11:53→13:42)
--- NOTE | 2016-06-12 12:11 | ED ---
General Adult HPI - General Chief complaint: Shortness of Breath Stated complaint: JONE Time Seen by Provider: 06/12/16 11:49 Source: patient, EMS, RN notes reviewed, old records reviewed Mode of arrival: EMS Limitations: no limitations - History of Present Illness Initial comments: This is a 66-year-old female year for evaluation of COPD. Patient having severe COPD exacerbation, patient has history of COPD has continued to smoke. She has history of asthma COPD I cholesterol high blood pressure, coming in with increasing shortness of breath today increasing cough increasing congestion denies fever denies chest pain. Patient is having pain in her back with wrapping around to her side she causes pleurisy. - Related Data Home Medications Medication Instructions Recorded Confirmed Albuterol Inhaler [Ventolin Hfa 1 - 2 puff INHALATION RT-Q4H PRN 09/30/15 Inhaler] Budesonide-Formot 160-4.5 Mcg 2 puff INHALATION RT-BID 10/12/15 06/12/16 [Symbicort 160-4.5 Mcg Inhaler] Atorvastatin Calcium [Lipitor] 40 mg PO HS 05/06/16 06/12/16 LORazepam [Ativan] 0.5 mg PO DAILY PRN 05/06/16 06/12/16 Melatonin 3 mg PO HS PRN 05/06/16 06/12/16 Albuterol Nebulized [Ventolin 2.5 mg INHALATION RT-QID PRN 06/12/16 06/12/16 Nebulized] Diclofenac Sodium [Voltaren] 75 mg PO BID PRN 06/12/16 06/12/16 Ipratropium Nebulized [Atrovent 0.5 mg INHALATION RT-QID PRN 06/12/16 06/12/16 Nebulized] amLODIPine [Norvasc] 2.5 mg PO DAILY 06/12/16 06/12/16 Allergies Allergy/AdvReac Type Severity Reaction Status Date / Time pneumococcal vaccine Allergy Unknown STATES SHE Verified 05/06/16 12:40 GETS PNEUMONIA Influenza Virus Vaccines Allergy Unknown Verified 05/06/16 12:40 milk AdvReac Mild Nausea Verified 05/06/16 12:40 Review of Systems ROS Statement: Those systems with pertinent positive or pertinent negative responses have been documented in the HPI. ROS Other: All systems not noted in ROS Statement are negative. 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 Last Myocardial Infarction Date:: 2011? History of Any Multi-Drug Resistant Organisms: None Reported Past Surgical History: Appendectomy, Back Surgery, Bowel Resection, Section, Hysterectomy, Orthopedic Surgery Additional Past Surgical History / Comment(s): 10/28/15 anterior cervical decompression fusion C3-4,C4-5,C5-6 with NIM cord monitoring, BACK SURGERY lami / FUSION/discectomy, manolo CATARACT SURGERY, LASER EYE SURGERY FOR GLAUCOMA., RIGHT KNEE SURGERY(fx kneecap). Past Anesthesia/Blood Transfusion Reactions: No Reported Reaction Past Psychological History: Anxiety Additional Psychological History / Comment(s): Pt has a son and laurie-in-law that reside with her. She uses a wheeled walker to ambulate. She does not drive-a friend takes her to appts. She has O2 at 3L/NC ATC. She has a nebulizer. Smoking Status: Former smoker Past Alcohol Use History: Occasional Additional Past Alcohol Use History / Comment(s): Has been SMOKING FOR 59 YEARS.SMOKING SINCE 7 YEARS OLD, USED TO SMOKE 3 PPD. Since 10/12/15 stopped smoking Past Drug Use History: None Reported - Past Family History Mother Family Medical History: Myocardial Infarction (AR) Additional Family Medical History / Comment(s): Mother had a AR in her 50's Father Family Medical History: No Reported History Additional Family Medical History / Comment(s): FORM OLD AGE Brother(s) Family Medical History: Asthma, COPD Sister(s) Family Medical History: Asthma, COPD General Exam Limitations: no limitations General appearance: alert, in no apparent distress, anxious Head exam: Present: atraumatic, normocephalic, normal inspection Eye exam: Present: normal appearance, PERRL, EOMI. Absent: scleral icterus, conjunctival injection, periorbital swelling ENT exam: Present: normal exam, mucous membranes moist Neck exam: Present: normal inspection. Absent: tenderness, meningismus, lymphadenopathy Respiratory exam: Present: respiratory distress, wheezes, accessory muscle use, decreased breath sounds, prolonged expiratory. Absent: rales, rhonchi, stridor Cardiovascular Exam: Present: normal rhythm, tachycardia, normal heart sounds. Absent: systolic murmur, diastolic murmur, rubs, gallop, clicks GI/Abdominal exam: Present: soft, normal bowel sounds. Absent: distended, tenderness, guarding, rebound, rigid Extremities exam: Present: normal inspection, full ROM, normal capillary refill. Absent: tenderness, pedal edema, joint swelling, calf tenderness Back exam: Present: normal inspection Neurological exam: Present: alert, oriented X3, CN II-XII intact Psychiatric exam: Present: normal affect, normal mood Skin exam: Present: warm, dry, intact, normal color. Absent: rash Course Vital Signs 06/12/16 06/12/16 06/12/16 12:00 12:21 12:36 Temperature 98.6 F Pulse Rate 101 H 105 H Respiratory 16 16 Rate Blood Pressure 112/79 O2 Sat by Pulse 95 Oximetry 06/12/16 13:35 Temperature 98.1 F Pulse Rate 98 Respiratory 18 Rate Blood Pressure 104/68 O2 Sat by Pulse 98 Oximetry - Reevaluation(s) Reevaluation #1: 06/12/16 13:41 Patient is pain is improved with pain control, improvement in breathing with breathing treatment EKG Findings - EKG Comments: EKG Findings:: EKG shows normal sinus rhythm rate of 99, OK 120, QRS 80, QTC 456 Medical Decision Making - Medical Decision Making 6 female well-known to emergency room in hospital for evaluation of COPD. Patient is on home O2 has been doing breathing treatments as directed but symptoms are worsening, mainly complaining of pain pain or back relates to pleurisy, patient will be admitted for breathing treatments steroids and pain control - Lab Data Result diagrams: 06/12/16 12:30 06/12/16 12:30 Lab Results 06/12/16 06/12/16 06/12/16 Range/Units 12:30 12:30 12:30 WBC 8.6 (3.8-10.6) k/uL RBC 4.49 (3.80-5.40) m/uL Hgb 12.5 (11.4-16.0) gm/dL Hct 38.1 (34.0-46.0) % MCV 84.9 (80.0-100.0) fL MCH 27.7 (25.0-35.0) pg MCHC 32.7 (31.0-37.0) g/dL RDW 18.7 H (11.5-15.5) % Plt Count 476 H (150-450) k/uL Neutrophils % 62 % Lymphocytes % 30 % Monocytes % 5 % Eosinophils % 0 % Basophils % 0 % Neutrophils # 5.3 (1.3-7.7) k/uL Lymphocytes # 2.5 (1.0-4.8) k/uL Monocytes # 0.4 (0-1.0) k/uL Eosinophils # 0.0 (0-0.7) k/uL Basophils # 0.0 (0-0.2) k/uL Anisocytosis Slight Microcytosis Slight PT (9.0-12.0) sec INR (<1.1) APTT (22.0-30.0) sec Sodium 134 L (137-145) mmol/L Potassium 4.6 (3.5-5.1) mmol/L Chloride 98 (98-107) mmol/L Carbon Dioxide 22 (22-30) mmol/L Anion Gap 14 mmol/L BUN 11 (7-17) mg/dL Creatinine 0.52 (0.52-1.04) mg/dL Est GFR (MDRD) Af Amer >60 (>60 ml/min/1.73 sqM) Est GFR (MDRD) Non-Af >60 (>60 ml/min/1.73 sqM) Glucose 93 (74-99) mg/dL Calcium 9.5 (8.4-10.2) mg/dL Magnesium 1.8 (1.6-2.3) mg/dL Total Bilirubin 0.4 (0.2-1.3) mg/dL AST 17 (14-36) U/L ALT 27 (9-52) U/L Alkaline Phosphatase 78 (38-126) U/L Total Creatine Kinase 55 (30-135) U/L CK-MB (CK-2) 1.0 (0.0-2.4) ng/mL CK-MB (CK-2) Rel Index 1.8 Troponin I <0.012 (0.000-0.034) ng/mL NT-Pro-B Natriuret Pep pg/mL Total Protein 7.4 (6.3-8.2) g/dL Albumin 4.0 (3.5-5.0) g/dL 06/12/16 06/12/16 Range/Units 12:30 12:30 WBC (3.8-10.6) k/uL RBC (3.80-5.40) m/uL Hgb (11.4-16.0) gm/dL Hct (34.0-46.0) % MCV (80.0-100.0) fL MCH (25.0-35.0) pg MCHC (31.0-37.0) g/dL RDW (11.5-15.5) % Plt Count (150-450) k/uL Neutrophils % % Lymphocytes % % Monocytes % % Eosinophils % % Basophils % % Neutrophils # (1.3-7.7) k/uL Lymphocytes # (1.0-4.8) k/uL Monocytes # (0-1.0) k/uL Eosinophils # (0-0.7) k/uL Basophils # (0-0.2) k/uL Anisocytosis Microcytosis PT 10.5 (9.0-12.0) sec INR 1.0 (<1.1) APTT 23.3 (22.0-30.0) sec Sodium (137-145) mmol/L Potassium (3.5-5.1) mmol/L Chloride (98-107) mmol/L Carbon Dioxide (22-30) mmol/L Anion Gap mmol/L BUN (7-17) mg/dL Creatinine (0.52-1.04) mg/dL Est GFR (MDRD) Af Amer (>60 ml/min/1.73 sqM) Est GFR (MDRD) Non-Af (>60 ml/min/1.73 sqM) Glucose (74-99) mg/dL Calcium (8.4-10.2) mg/dL Magnesium (1.6-2.3) mg/dL Total Bilirubin (0.2-1.3) mg/dL AST (14-36) U/L ALT (9-52) U/L Alkaline Phosphatase (38-126) U/L Total Creatine Kinase (30-135) U/L CK-MB (CK-2) (0.0-2.4) ng/mL CK-MB (CK-2) Rel Index Troponin I (0.000-0.034) ng/mL NT-Pro-B Natriuret Pep 137 pg/mL Total Protein (6.3-8.2) g/dL Albumin (3.5-5.0) g/dL - Radiology Data Radiology results: report reviewed (S x-ray shows possible pneumonia left upper lobe), image reviewed Critical Care Time Critical Care Time: Yes Total Critical Care Time: 31 Disposition Clinical Impression: COPD exacerbation, Adult respiratory distress syndrome, Acute exacerbation of chronic obstructive pulmonary disease (COPD), Hypoxia, Chronic respiratory failure with hypoxia, Community acquired pneumonia Disposition: ADMITTED IP TO THIS HOSP Condition: Poor Referrals: Kristina Cornejo MD [Primary Care Provider] - 1-2 days
[2016-06-12 12:54] LABS: Anisocytosis Slight; Basophils % (A) 0 %; CH 27.8; CHCM 32.9; Eosinophils % (A) 0 %; HCT 38.1 % (34.0-46.0); HDW 3.11; HGB 12.5 gm/dL (11.4-16.0); Luc # (Auto) 0.32; Luc % (Auto) 4; Lymphocytes # (A) 2.5 k/uL (1.0-4.8); Lymphocytes % (A) 30 %; MCH 27.7 pg (25.0-35.0); MCHC 32.7 g/dL (31.0-37.0); MCV 84.9 fL (80.0-100.0); Mean Platelet Volume 7.3; Microcytosis Slight; Monocytes # (A) 0.4 k/uL (0-1.0); Monocytes % (A) 5 %; Neutrophils # (A) 5.3 k/uL (1.3-7.7); Neutrophils % (A) 62 %; RBC 4.49 m/uL (3.80-5.40); RDW 18.7 % (11.5-15.5); WBC 8.6 k/uL (3.8-10.6); WBC (Perox) 9.05
[2016-06-12 13:06] LABS: ALT 27 U/L (9-52); AST 17 U/L (14-36); Alkaline Phosphatase 78 U/L (38-126); Anion Gap 14 mmol/L; Blood Urea Nitrogen 11 mg/dL (7-17); Calcium 9.5 mg/dL (8.4-10.2); Carbon Dioxide 22 mmol/L (22-30); Chloride 98 mmol/L (98-107); Glucose 93 mg/dL (74-99); Magnesium 1.8 mg/dL (1.6-2.3); Non-African American GFR(MDRD) >60 (>60 ml/min/1.73 sqM); Potassium 4.6 mmol/L (3.5-5.1); Sodium 134 mmol/L (137-145); Total Bilirubin 0.4 mg/dL (0.2-1.3); Total Protein 7.4 g/dL (6.3-8.2)
--- NOTE | 2016-06-12 13:07 | XR ---
EXAMINATION TYPE: XR chest 2V DATE OF EXAM: 06/12/2016 1:03 PM HISTORY: difficulty breathing. REFERENCE: Previous study dated 05/06/2016. FINDINGS: There has been a previous ACDF involving the lower cervical spine. The lungs are overinflated. There are diffuse increased markings. There is a confluent opacity in the left suprahilar region which may be an early infiltrate in the left upper lobe. There is old granulo matous change in the right lung. Pleural spaces are clear. The heart is not enlarged.. IMPRESSION: 1. COPD. 2. OLD GRANULOMATOUS CHANGE. 3. I CANNOT EXCLUDE AN EARLY PNEUMONIA IN THE LEFT UPPER LOBE.
[2016-06-12 13:13] LABS: Partial Thromboplastin Time 23.3 sec (22.0-30.0); Prothrombin Time 10.5 sec (9.0-12.0)
[2016-06-12 13:21] LABS: Creatine Kinase 55 U/L (30-135)
[2016-06-12 13:34] LABS: Troponin I <0.012 ng/mL (0.000-0.034)
[2016-06-12] MEDS ORDERED: MORPHINE SULFATE 4 MG/ML SYRINGE IVP PRN (13:41)
[2016-06-12] MEDS ORDERED: AZITHROMYCIN 500 MG in SODIUM CHLORIDE 0.9% 250 ML IVPB STA (13:42)
[2016-06-12] MEDS ORDERED: KETOROLAC 30 MG/ML 1 ML VIAL IVP STA (13:42)
[2016-06-12] MEDS: SODIUM CHLORIDE 0.9% 1,000 ML IV SCH (14:29)
[2016-06-12 15:47] VITALS: BMI 16.5
[2016-06-12] MEDS: IPRATROPIUM-ALBUTEROL 3 ML NEB INHALATION SCH ×2 (15:52→19:06)
[2016-06-12] MEDS ORDERED: MELATONIN 3 MG TABLET PO PRN (16:41)
[2016-06-12 16:47] LABS: Glucose,Whole Blood 149 mg/dL (75-99)
[2016-06-12] MEDS: INSULIN LISPRO (humaLOG) 300 UNIT/3 ML VIAL SQ SCH ×2 (17:22→21:20)
[2016-06-12] MEDS: methylPREDNISolone SOD SUCCI 125 MG/2 ML VIAL IV SCH (17:22)
[2016-06-12] MEDS: HYDROcodone/APAP 7.5-325MG 1 EACH TAB PO SCH (17:23)
--- NOTE | 2016-06-12 18:58 | HP ---
DATE OF ADMISSION: Patient is a 66-year-old with known history of COPD. Patient has multiple admissions for COPD, Comes in with worsening shortness of breath, denied orthopnea, PND. Patient is complaining of cough, sputum production. Patient denied fever, chills. Chest x-ray not showing pneumonia. Patient is admitted for COPD exacerbation. Patient continues to smoke about 4 cigarettes per day. Uses 3.5 liters of O2 at home. ROS: All other systems were reviewed and were negative Home medications include: 1. Albuterol. 2. Budesonide-formoterol. 3. Atorvastatin. 4. ( ). 5. Melatonin. 6. Ipratropium combination. 7. Amlodipine. ALLERGIES: Allergic to pneumococcal vaccine and influenza virus vaccine and milk. PAST MEDICAL HISTORY: Asthma, cancer, COPD, gastroesophageal reflux disease, hyperlipidemia, osteoarthritis, severe ( ) of chronic smoking, hypertension, sleep apnea, appendectomy, back surgery, bowel resection, Cesarian section, hysterectomy, orthopedic surgery in the past. Patient had anterior cervical decompression surgery of C3-C4, C4-C5, C5-C6. SOCIAL HISTORY: Patient continues to smoke. Patient used to a pack per day smoker, now smoking about 4 cigarettes per day. Denied any alcohol uses. FAMILY HISTORY: Mother had myocardial infarction, father of old age, brother had asthma and COPD, sister had asthma and COPD. PHYSICAL EXAMINATION: Temperature 98.1, pulse of 98, respiratory rate of 18, blood pressure is 104/68, saturating at 98% on room air. GENERAL: The patient is alert and oriented x3, not in any acute distress. Well developed, well nourished. HEENT: Pupils are round and equally reacting to light. EOMI. No scleral icterus. No conjunctival pallor. Normocephalic, atraumatic. No pharyngeal erythema. No thyromegaly. CARDIOVASCULAR: S1 and S2 present. No murmurs, rubs, or gallops. PULMONARY: Bilateral expiratory wheezing appreciated. Patient's air entry in bilateral lung reynolds actually better than her baseline. ABDOMEN: Soft, nontender, nondistended, normoactive bowel sounds. No palpable organomegaly. MUSCULOSKELETAL: No joint swelling or deformity. EXTREMITIES: No cyanosis, clubbing, or pedal edema. NEUROLOGICAL: Gross neurological examination did not reveal any focal deficits. SKIN: No rashes. LABORATORY DATA: CBC, CMP are abnormal of mild low sodium of 134.Chest x-ray is suspicious for infiltrate in the left upper lobe, I personally do not believe patient has an infiltrate. Patient does not have any clinical signs or symptoms of pneumonia. ASSESSMENT AND PLAN: 1. Acute on chronic hypercapnic respiratory failure secondary to ( ). Patient will be started on ( ). Patient does have tracheobronchitis. 2. Nicotine abuse. Extensive counseling was provided regarding cessation. She is unable to quite smoking, trying hard, she fails. 3. Gastroesophageal reflux disease. 4. Hyperlipidemia. 5. Sleep apnea. For the above mentioned medical problems, I will go ahead and continue ( ) which is in the low normal ( ). Patient has moderate protein calorie malnutrition, patient with severe ( ) because of her chronic smoking. MTDD
[2016-06-12] MEDS: SYMBICORT 160-4.5 MCG INHALER INHALATION SCH (19:06)
[2016-06-12 20:43] LABS: Hemoglobin A1C 5.7 % (4.2-6.1)
[2016-06-12 20:56] LABS: Glucose,Whole Blood 338 mg/dL (75-99)
[2016-06-12] MEDS ORDERED: ATORVASTATIN 40 MG TAB PO SCH (21:00)
[2016-06-12] MEDS ORDERED: INSULIN DETEMIR 100 UNIT/ML 10 ML VIAL SQ ONE (22:00)
[2016-06-13] MEDS: HYDROcodone/APAP 7.5-325MG 1 EACH TAB PO SCH ×2 (00:51→07:48)
[2016-06-13] MEDS: SODIUM CHLORIDE 0.9% 1,000 ML IV SCH ×2 (00:53→11:06)
[2016-06-13] MEDS: methylPREDNISolone SOD SUCCI 125 MG/2 ML VIAL IV SCH ×3 (02:01→11:27)
[2016-06-13 02:06] LABS: Glucose,Whole Blood 194 mg/dL (75-99)
[2016-06-13 07:17] LABS: Glucose,Whole Blood 139 mg/dL (75-99)
[2016-06-13 07:32] VITALS: BP 127/76; RESP 22; TEMP 98.4
[2016-06-13] MEDS: INSULIN LISPRO (humaLOG) 300 UNIT/3 ML VIAL SQ SCH ×2 (07:47→12:55)
[2016-06-13] MEDS: IPRATROPIUM-ALBUTEROL 3 ML NEB INHALATION SCH ×2 (08:00→12:43)
[2016-06-13] MEDS: SYMBICORT 160-4.5 MCG INHALER INHALATION SCH (08:00)
[2016-06-13] MEDS ORDERED: ENOXAPARIN 40 MG/0.4 ML SYRINGE SQ SCH (09:00)
[2016-06-13] MEDS ORDERED: NICOTINE 21MG/24HR PATCH TRANSDERM SCH (09:00)
[2016-06-13] MEDS ORDERED: AZITHROMYCIN 500 MG in SODIUM CHLORIDE 0.9% 250 ML IVPB SCH (12:00)
[2016-06-13 12:25] LABS: Glucose,Whole Blood 148 mg/dL (75-99)
[2016-06-13 12:47] VITALS: PULSE 92
--- NOTE | 2016-06-13 12:57 | P.CNPUL ---
History of Present Illness Consult date: 06/13/16 Reason for consult: cough, COPD, pneumonia, other Chief complaint: COPD exacerbation , shortness of breath History of present illness: 66-year-old female well-known to our service. She has very severe COPD. Unfortunately she continues to smoke. She comes in with a COPD exacerbation. Seen in the emergency room at one of the ER doctors. Admitted yesterday through the emergency room. Again the patient's complaints are typical include shortness of breath chest tightness wheezing cough. Coughing up a small amount of phlegm. No fever no chills. I just saw the office probably 2 weeks ago after her last admission here. She promises me that point that she wasn't been a smoker anymore. She doesn't look bad. States that she wants to be discharged home. Review of Systems A 12 point review of systems is positive for shortness breath chest tightness wheezing cough. The rest of the 12 point review of systems is unremarkable. 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 Last Myocardial Infarction Date:: 2011? History of Any Multi-Drug Resistant Organisms: None Reported Past Surgical History: Appendectomy, Back Surgery, Bowel Resection, Section, Hysterectomy, Orthopedic Surgery Additional Past Surgical History / Comment(s): 10/28/15 anterior cervical decompression fusion C3-4,C4-5,C5-6 with NIM cord monitoring, BACK SURGERY lami / FUSION/discectomy, manolo CATARACT SURGERY, LASER EYE SURGERY FOR GLAUCOMA., RIGHT KNEE SURGERY(fx kneecap). Past Anesthesia/Blood Transfusion Reactions: No Reported Reaction Past Psychological History: Anxiety Additional Psychological History / Comment(s): Pt has a son and laurie-in-law that reside with her. She uses a wheeled walker to ambulate. She does not drive-a friend takes her to appts. She has O2 at 3L/[place] ATC. She has a nebulizer. Smoking Status: Current every day smoker Past Alcohol Use History: Occasional Additional Past Alcohol Use History / Comment(s): Has been SMOKING FOR 59 YEARS.SMOKING SINCE 7 YEARS OLD, USED TO SMOKE 3 PPD. SMOKES 4 CIGARRETTES A DAY Past Drug Use History: None Reported Additional Drug Use History / Comment(s): TAKES HER PRESCRIBED NORCO. - Past Family History Mother Family Medical History: Myocardial Infarction ([place]) Additional Family Medical History / Comment(s): Mother had a PR in her 50's Father Family Medical History: No Reported History Additional Family Medical History / Comment(s): FORM OLD AGE Brother(s) Family Medical History: Asthma, COPD Sister(s) Family Medical History: Asthma, COPD Medications and Allergies Home Medications Medication Instructions Recorded Confirmed Type Albuterol Inhaler [Ventolin Hfa 1 - 2 puff INHALATION RT-Q4H PRN 09/30/15 History Inhaler] Budesonide-Formot 160-4.5 Mcg 2 puff INHALATION RT-BID 10/12/15 06/12/16 History [Symbicort 160-4.5 Mcg Inhaler] Atorvastatin Calcium [Lipitor] 40 mg PO HS 05/06/16 06/12/16 History LORazepam [Ativan] 0.5 mg PO BID 05/06/16 06/12/16 History Melatonin 3 mg PO HS PRN 05/06/16 06/12/16 History Albuterol Nebulized [Ventolin 2.5 mg INHALATION RT-QID PRN 06/12/16 06/12/16 History Nebulized] Diclofenac Sodium [Voltaren] 75 mg PO BID PRN 06/12/16 06/12/16 History HYDROcodone/APAP 7.5-325MG [[place] 1 tab PO Q8H 06/12/16 06/12/16 History 7.5-325] Ipratropium Nebulized [Atrovent 0.5 mg INHALATION RT-QID PRN 06/12/16 06/12/16 History Nebulized] amLODIPine [Norvasc] 2.5 mg PO DAILY 06/12/16 06/12/16 History Allergies Allergy/AdvReac Type Severity Reaction Status Date / Time pneumococcal vaccine Allergy Unknown STATES SHE Verified 05/06/16 12:40 GETS PNEUMONIA Influenza Virus Vaccines Allergy Unknown Verified 05/06/16 12:40 Physical Exam Osteopathic Statement: *. No significant issues noted on an osteopathic structural exam other than those noted in the History and Physical/Consult. Vitals: Vital Signs Temp Pulse Pulse Resp BP BP Pulse Ox 06/13/16 12:44 92 06/13/16 08:11 84 06/13/16 08:00 88 96 06/13/16 07:00 98.4 F 95 22 127/76 98 06/12/16 23:00 97.6 F 91 16 105/55 95 06/12/16 19:17 104 H 06/12/16 19:06 102 H 06/12/16 16:05 100 06/12/16 15:52 100 06/12/16 15:00 97.1 F L 103 H 22 123/76 97 06/12/16 14:32 95 18 114/56 99 Intake and Output 06/12/16 06/13/16 06/13/16 22:59 06:59 14:59 Intake Total 240 Balance 240 Intake: Oral 240 Other: # Voids 1 2 # Bowel Movements 0 Weight 39.5 kg 39.5 kg Patient Weight 06/14/16 06:59 Weight 39.5 kg No acute distress, oriented 3. No respiratory distress. No audible wheezing. HEENT examination is grossly unremarkable. Mixed membranes are moist. Neck supple. Full range of motion. No adenopathy or thyromegaly. Cardiovascular examination reveals regular rhythm rate. S1 and S2 normal. No murmur. Lungs reveal few scattered expiratory rhonchi. Breath sounds are diminished. Some mild expiratory wheezes. No crackles. Abdomen soft. Extremities are intact without cyanosis clubbing or edema. Results - Laboratory Findings CBC and BMP: 06/12/16 12:30 06/12/16 12:30 PT/INR, D-dimer PT 10.5 sec (9.0-12.0) 06/12/16 12:30 INR 1.0 (<1.1) 06/12/16 12:30 Abnormal lab findings: Abnormal Labs 06/12/16 06/12/16 06/13/16 16:46 20:54 02:04 POC Glucose (mg/dL) 149 H 338 H 194 H 06/13/16 06/13/16 07:16 12:22 POC Glucose (mg/dL) 139 H 148 H - Diagnostic Findings Chest x-ray: image reviewed (Labs x-rays and medications are reviewed.) Assessment and Plan (1) Acute exacerbation of chronic obstructive pulmonary disease (COPD) Status: Acute (2) COPD exacerbation Status: Acute (3) Chronic respiratory failure with hypoxia Status: Acute (4) Hypoxia Status: Acute (5) Acute tracheobronchitis Status: Acute Plan: Plan The patient's doing well. May be discharged home by the primary service. She should be on her usual medications including albuterol Atrovent Perforomist and Pulmicort. Also on systemic corticosteroids. If she is discharged home, she can be discharged home on a short course of oral antibiotics and some prednisone with a burst and taper beginning with 40 mg 4 days and tapering down by 10 mg every 4 days. She should follow with me in the office again. Time with Patient: Greater than 30
[2016-06-13] MEDS ORDERED: AZITHROMYCIN 500 MG TAB PO SCH (14:00)
--- NOTE | 2016-06-13 15:06 | P.DS ---
Providers Date of admission: 06/12/16 13:40 Expected date of discharge: 06/13/16 Attending physician: Amelia Maier Consults: 06/12/16 17:13 Consult Physician Routine Consulting Provider: Kamran Carrero Reason/Comments: COPD EXACERBATION Do you want consulting provider notified?: Yes Primary care physician: Chantal Acevedo Hospital Course: Final Diagnoses: 1. Acute on chronic hypercapnic respiratory failure secondary to acute COPD exacerbation with tracheobronchitis. 2. Ongoing nicotine abuse 3. Acute on Chronic hypoxic respiratory failure, wears 3.5 L nasal cannula O2 at home 4. Hyperlipidemia 5. Gastroesophageal reflux disease 6. Sleep apnea. 7. Moderate protein calorie malnutrition, BMI 16.5 Hospital course: This is 66-year-old female admitted with acute on chronic hypercapnic respiratory failure secondary to acute COPD exacerbation in a patient with ongoing nicotine abuse. Chest x-ray did not report pneumonia. Maintained on nebulized bronchodilators, antibiotics and systemic steroids. Evaluated by Dr. Carrero, pulmonary. Significant clinical improvement. Cleared for discharge by pulmonary. It is being discharged home in a stable condition with guarded prognosis. Patient Condition at Discharge: Stable Plan - Discharge Summary New Discharge Prescriptions: Azithromycin [Zithromax] 500 mg PO DAILY@1400 #5 tab Nicotine 21Mg/24Hr Patch [Habitrol] 1 patch TRANSDERM DAILY #30 patch predniSONE 10 mg PO DIRECTED #40 tab Discharge Medication List Albuterol Inhaler [Ventolin Hfa Inhaler] 1 - 2 puff INHALATION RT-Q4H PRN [History] Budesonide-Formot 160-4.5 Mcg [Symbicort 160-4.5 Mcg Inhaler] 2 puff INHALATION RT-BID 10/12/15 [History] Atorvastatin Calcium [Lipitor] 40 mg PO HS 05/06/16 [History] LORazepam [Ativan] 0.5 mg PO BID 05/06/16 [History] Melatonin 3 mg PO HS PRN 05/06/16 [History] HYDROcodone/APAP 7.5-325MG [[place] 7.5-325] 1 tab PO Q8H 06/12/16 [History] Albuterol Nebulized [Ventolin Nebulized] 2.5 mg INHALATION RT-QID #0 06/13/16 [ Rx] Azithromycin [Zithromax] 500 mg PO DAILY@1400 #5 tab 06/13/16 [Rx] Ipratropium Nebulized [Atrovent Nebulized] 0.5 mg INHALATION RT-QID #0 [Rx] Nicotine 21Mg/24Hr Patch [Habitrol] 1 patch TRANSDERM DAILY #30 patch 06/13/16 [ Rx] predniSONE 10 mg PO DIRECTED #40 tab 06/13/16 [Rx] Follow up Appointment(s)/Referral(s): Kristina Cornejo MD [Primary Care Provider] - 06/16/16 2:20 pm Kamran Carrero DO [Doctor of Osteopathic Medicine] - 06/24/16 1:30 pm Patient Instructions/Handouts: COPD (Chronic Obstructive Pulmonary Disease) (DC ) Activity/Diet/Wound Care/Special Instructions: Diet: Cardiac Intake: Limited until follow up No smoking
== END 2016-06-13 14:59 | disposition home or self-care (01) | DRG 190 ==
LOC: EC 11:47 → 4MS4W 13:40
PROVIDERS: ADMIT Hospitalist; ATTEND Hospitalist
DX: J44.1 Chronic obstructive pulmonary disease with (acute) exacerbation (principal); J96.21 Acute and chronic respiratory failure with hypoxia; E44.0 Moderate protein-calorie malnutrition; J96.22 Acute and chronic respiratory failure with hypercapnia; Z68.1 Body mass index [BMI] 19.9 or less, adult; Q60.0 Renal agenesis, unilateral; Z99.81 Dependence on supplemental oxygen; I10 Essential (primary) hypertension; J20.9 Acute bronchitis, unspecified; K08.109 Complete loss of teeth, unspecified cause, unspecified class; J45.909 Unspecified asthma, uncomplicated; I25.2 Old myocardial infarction; J44.0 Chronic obstructive pulmonary disease with (acute) lower respiratory infection; K21.9 Gastro-esophageal reflux disease without esophagitis; E78.5 Hyperlipidemia, unspecified; F41.9 Anxiety disorder, unspecified; G47.30 Sleep apnea, unspecified; F17.210 Nicotine dependence, cigarettes, uncomplicated; M19.90 Unspecified osteoarthritis, unspecified site; M54.9 Dorsalgia, unspecified; Z79.899 Other long term (current) drug therapy; Z88.7 Allergy status to serum and vaccine; Z87.01 Personal history of pneumonia (recurrent); Z87.81 Personal history of (healed) traumatic fracture; Z87.11 Personal history of peptic ulcer disease; Z82.49 Family history of ischemic heart disease and other diseases of the circulatory system; Z91.011 Allergy to milk products; Z90.49 Acquired absence of other specified parts of digestive tract; Z90.710 Acquired absence of both cervix and uterus; Z98.1 Arthrodesis status; Z98.42 Cataract extraction status, left eye; Z98.41 Cataract extraction status, right eye; Z85.828 Personal history of other malignant neoplasm of skin; Z87.19 Personal history of other diseases of the digestive system; Z79.891 Long term (current) use of opiate analgesic; Z79.51 Long term (current) use of inhaled steroids; Z82.5 Family history of asthma and other chronic lower respiratory diseases; Z71.6 Tobacco abuse counseling
CPT/HCPCS: 36415; 71020; 80053; 82550; 82553; 83036; 83605; 83735; 83880; 84484; 85025; 85610; 85730; 87040; 87070; 87205; 93005; 94640; 94760; 96374; 96375; 96376; 99291

== ENCOUNTER 2016-07-09 15:13 | Inpatient (IN) | payer MEDICARE, OTHER ==
[2016-07-09] MEDS ORDERED: SODIUM CHLORIDE 0.9% 1,000 ML IV STA (15:16)
[2016-07-09] MEDS ORDERED: MAGNESIUM SULFATE-D5W PMX 1 GM in DEXTROSE/WATER 1 100ML.BAG IVPB STA (15:16)
[2016-07-09] MEDS ORDERED: IPRATROPIUM-ALBUTEROL 3 ML NEB INHALATION STA (15:16)
--- NOTE | 2016-07-09 15:20 | ED ---
SOB HPI - General Stated Complaint: DYSPNEA Time Seen by Provider: 07/09/16 15:13 Source: patient, EMS, RN notes reviewed Mode of arrival: EMS - History of Present Illness Initial Comments: This is a 66-year-old female with a history of COPD and emphysema who states she still smokes who is brought in by EMS today after developing shortness of breath which she started about 2 AM. She is on 4 L of oxygen at home and for some reason went to a friend's house to drink beer and did not take any action with her for the past 4 hours. EMS was called and she became very dyspneic. She has also had a cough with yellow and green phlegm for the past 2 days and felt somewhat febrile. Additionally she had at least 2 episodes of nausea and vomiting with some red tinge to her emesis on the last episode. She was given a DuoNeb as well as 125 a slight Medrol and route he still presents very profoundly dyspneic. MD Complaint: shortness of breath, cough, anxiety - Related Data Home Medications Medication Instructions Recorded Confirmed Albuterol Inhaler [Ventolin Hfa 1 - 2 puff INHALATION RT-Q4H PRN 09/30/15 Inhaler] Budesonide-Formot 160-4.5 Mcg 2 puff INHALATION RT-BID 10/12/15 07/09/16 [Symbicort 160-4.5 Mcg Inhaler] Atorvastatin Calcium [Lipitor] 40 mg PO HS 05/06/16 07/09/16 LORazepam [Ativan] 0.5 mg PO BID 05/06/16 07/09/16 Melatonin 3 mg PO HS PRN 05/06/16 07/09/16 HYDROcodone/APAP 7.5-325MG [[place] 1 tab PO Q8H PRN 06/12/16 07/09/16 7.5-325] amLODIPine [Norvasc] 2.5 mg PO DAILY 07/09/16 07/09/16 Previous Rx's Medication Instructions Recorded Albuterol Nebulized [Ventolin 2.5 mg INHALATION RT-QID #0 06/13/16 Nebulized] Ipratropium Nebulized [Atrovent 0.5 mg INHALATION RT-QID #0 06/13/16 Nebulized] Allergies Allergy/AdvReac Type Severity Reaction Status Date / Time pneumococcal vaccine Allergy Unknown Unknown Verified 07/09/16 16:51 Influenza Virus Vaccines Allergy Unknown Verified 07/09/16 16:51 Review of Systems ROS Statement: Those systems with pertinent positive or pertinent negative responses have been documented in the HPI. ROS Other: All systems not noted in ROS Statement are negative. 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 Last Myocardial Infarction Date:: 2011? History of Any Multi-Drug Resistant Organisms: None Reported Past Surgical History: Appendectomy, Back Surgery, Bowel Resection, Section, Hysterectomy, Orthopedic Surgery Additional Past Surgical History / Comment(s): 10/28/15 anterior cervical decompression fusion C3-4,C4-5,C5-6 with NIM cord monitoring, BACK SURGERY lami / FUSION/discectomy, manolo CATARACT SURGERY, LASER EYE SURGERY FOR GLAUCOMA., RIGHT KNEE SURGERY(fx kneecap). Past Anesthesia/Blood Transfusion Reactions: No Reported Reaction Past Psychological History: Anxiety Additional Psychological History / Comment(s): Pt has a son and laurie-in-law that reside with her. She uses a wheeled walker to ambulate. She does not drive-a friend takes her to [employer]. She has O2 at 3L/[place] ATC. She has a nebulizer. Smoking Status: Current every day smoker Past Alcohol Use History: Occasional Additional Past Alcohol Use History / Comment(s): Has been SMOKING FOR 59 YEARS.SMOKING SINCE 7 YEARS OLD, USED TO SMOKE 3 PPD. SMOKES 4 CIGARRETTES A DAY Past Drug Use History: None Reported Additional Drug Use History / Comment(s): TAKES HER PRESCRIBED NORCO. - Past Family History Mother Family Medical History: Myocardial Infarction ([place]) Additional Family Medical History / Comment(s): Mother had a [place] in her 50's Father Family Medical History: No Reported History Additional Family Medical History / Comment(s): FORM OLD AGE Brother(s) Family Medical History: Asthma, COPD Sister(s) Family Medical History: Asthma, COPD General Exam - General Exam Comments Initial Comments: This is a well-developed well-nourished awake alert anxious appearing female she is in respiratory distress Limitations: physical limitation General appearance: alert, anxious, in distress ENT exam: Present: mucous membranes dry Respiratory exam: Present: wheezes, decreased breath sounds Cardiovascular Exam: Present: tachycardia GI/Abdominal exam: Present: soft, normal bowel sounds. Absent: distended, tenderness, guarding, rebound, rigid Extremities exam: Present: normal inspection, full ROM, normal capillary refill. Absent: tenderness, pedal edema, joint swelling, calf tenderness Back exam: Present: normal inspection Neurological exam: Present: alert, oriented X3, CN II-XII intact Psychiatric exam: Present: anxious Skin exam: Present: warm, dry, intact, normal color. Absent: rash Course Vital Signs 07/09/16 07/09/16 07/09/16 15:18 15:50 15:52 Temperature 96.7 F L Pulse Rate 92 86 86 Respiratory 42 H 30 H Rate Blood Pressure 144/100 140/75 O2 Sat by Pulse 100 96 Oximetry 07/09/16 16:04 Temperature Pulse Rate 90 Respiratory Rate Blood Pressure O2 Sat by Pulse Oximetry - Reevaluation(s) Reevaluation #1: 07/09/16 15:25 Reevaluation the patient reveals she has improved and resting more comfortably. Reevaluation #2: 07/09/16 16:58 The patient is feeling somewhat better she still is dyspneic with diffuse wheezing. She has however improved. Medical Decision Making - Medical Decision Making I did discuss findings with the patient as well as with Dr. Maier's nurse practitioner. Patient will be admitted with consultation by pulmonary medicine - Lab Data Result diagrams: 07/09/16 15:15 07/09/16 15:15 Lab Results 07/09/16 07/09/16 07/09/16 Range/Units 15:15 15:15 15:15 WBC 10.9 H (3.8-10.6) k/uL RBC 4.67 (3.80-5.40) m/uL Hgb 12.8 (11.4-16.0) gm/dL Hct 40.3 (34.0-46.0) % MCV 86.1 (80.0-100.0) fL MCH 27.4 (25.0-35.0) pg MCHC 31.8 (31.0-37.0) g/dL RDW 18.4 H (11.5-15.5) % Plt Count 300 (150-450) k/uL Neutrophils % 58 % Lymphocytes % 33 % Monocytes % 4 % Eosinophils % 1 % Basophils % 1 % Neutrophils # 6.4 (1.3-7.7) k/uL Lymphocytes # 3.6 (1.0-4.8) k/uL Monocytes # 0.4 (0-1.0) k/uL Eosinophils # 0.1 (0-0.7) k/uL Basophils # 0.1 (0-0.2) k/uL Anisocytosis Slight PT (9.0-12.0) sec INR (<1.1) APTT (22.0-30.0) sec Sodium 133 L (137-145) mmol/L Potassium 4.3 (3.5-5.1) mmol/L Chloride 98 (98-107) mmol/L Carbon Dioxide 22 (22-30) mmol/L Anion Gap 13 mmol/L BUN 8 (7-17) mg/dL Creatinine 0.50 L (0.52-1.04) mg/dL Est GFR (MDRD) Af Amer >60 (>60 ml/min/1.73 sqM) Est GFR (MDRD) Non-Af >60 (>60 ml/min/1.73 sqM) Glucose 82 (74-99) mg/dL Plasma Lactic Acid Pawan (0.7-2.0) mmol/L Calcium 8.8 (8.4-10.2) mg/dL Magnesium 1.8 (1.6-2.3) mg/dL Total Bilirubin 0.4 (0.2-1.3) mg/dL AST 23 (14-36) U/L ALT 25 (9-52) U/L Alkaline Phosphatase 79 (38-126) U/L Total Creatine Kinase 102 (30-135) U/L CK-MB (CK-2) 1.8 (0.0-2.4) ng/mL CK-MB (CK-2) Rel Index 1.8 Troponin I <0.012 (0.000-0.034) ng/mL NT-Pro-B Natriuret Pep pg/mL Total Protein 7.0 (6.3-8.2) g/dL Albumin 4.1 (3.5-5.0) g/dL Amylase 44 (30-110) U/L Lipase 70 (23-300) U/L Serum Alcohol 200 mg/dL 07/09/16 07/09/16 07/09/16 Range/Units 15:15 15:15 15:15 WBC (3.8-10.6) k/uL RBC (3.80-5.40) m/uL Hgb (11.4-16.0) gm/dL Hct (34.0-46.0) % MCV (80.0-100.0) fL MCH (25.0-35.0) pg MCHC (31.0-37.0) g/dL RDW (11.5-15.5) % Plt Count (150-450) k/uL Neutrophils % % Lymphocytes % % Monocytes % % Eosinophils % % Basophils % % Neutrophils # (1.3-7.7) k/uL Lymphocytes # (1.0-4.8) k/uL Monocytes # (0-1.0) k/uL Eosinophils # (0-0.7) k/uL Basophils # (0-0.2) k/uL Anisocytosis PT 10.2 (9.0-12.0) sec INR 1.0 (<1.1) APTT 25.1 (22.0-30.0) sec Sodium (137-145) mmol/L Potassium (3.5-5.1) mmol/L Chloride (98-107) mmol/L Carbon Dioxide (22-30) mmol/L Anion Gap mmol/L BUN (7-17) mg/dL Creatinine (0.52-1.04) mg/dL Est GFR (MDRD) Af Amer (>60 ml/min/1.73 sqM) Est GFR (MDRD) Non-Af (>60 ml/min/1.73 sqM) Glucose (74-99) mg/dL Plasma Lactic Acid Pawan 1.2 (0.7-2.0) mmol/L Calcium (8.4-10.2) mg/dL Magnesium (1.6-2.3) mg/dL Total Bilirubin (0.2-1.3) mg/dL AST (14-36) U/L ALT (9-52) U/L Alkaline Phosphatase (38-126) U/L Total Creatine Kinase (30-135) U/L CK-MB (CK-2) (0.0-2.4) ng/mL CK-MB (CK-2) Rel Index Troponin I (0.000-0.034) ng/mL NT-Pro-B Natriuret Pep 73 pg/mL Total Protein (6.3-8.2) g/dL Albumin (3.5-5.0) g/dL Amylase (30-110) U/L Lipase (23-300) U/L Serum Alcohol mg/dL - EKG Data -: EKG Interpreted by Me EKG shows normal: sinus rhythm (Sinus rhythm a rate of 90 ME interval 1:30 QRS duration 84 QT/QTC of 360/450 LVH by voltage criteria artifact is present) - Radiology Data Radiology results: report reviewed (I did review the x-ray report the findings are consistent with COPD no acute findings otherwise.), image reviewed Critical Care Time Critical Care Time: Yes Critical Care Time: 39 minutes which included monitoring the EMS run as well as discussed with paramedics. Evaluation the patient with history physical lab and x-rays. Multiple reevaluation of the patient. Discussed with the patient regarding the findings discussed with the admitting physician service. Admission orders and documentation of the above. Disposition Clinical Impression: Acute exacerbation of chronic obstructive airways disease, Adult respiratory distress syndrome, Bronchitis Disposition: ADMITTED IP TO THIS HOSP Condition: Stable
[2016-07-09 15:39] LABS: Anisocytosis Slight; Basophils # (A) 0.1 k/uL (0-0.2); Basophils % (A) 1 %; CHCM 32.6; Eosinophils # (A) 0.1 k/uL (0-0.7); Eosinophils % (A) 1 %; HCT 40.3 % (34.0-46.0); HGB 12.8 gm/dL (11.4-16.0); Luc # (Auto) 0.34; Luc % (Auto) 3; Lymphocytes # (A) 3.6 k/uL (1.0-4.8); Lymphocytes % (A) 33 %; MCH 27.4 pg (25.0-35.0); MCHC 31.8 g/dL (31.0-37.0); MCV 86.1 fL (80.0-100.0); Mean Platelet Volume 7.2; Monocytes # (A) 0.4 k/uL (0-1.0); Monocytes % (A) 4 %; Neutrophils # (A) 6.4 k/uL (1.3-7.7); Neutrophils % (A) 58 %; RBC 4.67 m/uL (3.80-5.40); RDW 18.4 % (11.5-15.5); WBC 10.9 k/uL (3.8-10.6); WBC (Perox) 11.83
[2016-07-09 15:48] LABS: Partial Thromboplastin Time 25.1 sec (22.0-30.0); Prothrombin Time 10.2 sec (9.0-12.0)
[2016-07-09 15:57] LABS: ALT 25 U/L (9-52); AST 23 U/L (14-36); Alkaline Phosphatase 79 U/L (38-126); Amylase 44 U/L (30-110); Anion Gap 13 mmol/L; Blood Urea Nitrogen 8 mg/dL (7-17); Calcium 8.8 mg/dL (8.4-10.2); Carbon Dioxide 22 mmol/L (22-30); Chloride 98 mmol/L (98-107); Glucose 82 mg/dL (74-99); Magnesium 1.8 mg/dL (1.6-2.3); Non-African American GFR(MDRD) >60 (>60 ml/min/1.73 sqM); Potassium 4.3 mmol/L (3.5-5.1); Sodium 133 mmol/L (137-145); Total Bilirubin 0.4 mg/dL (0.2-1.3)
[2016-07-09 15:58] LABS: Creatine Kinase 102 U/L (30-135)
[2016-07-09 16:04] LABS: Alcohol 200 mg/dL
[2016-07-09 16:11] LABS: Creatine Kinase MB 1.8 ng/mL (0.0-2.4); Troponin I <0.012 ng/mL (0.000-0.034)
--- NOTE | 2016-07-09 16:30 | XR ---
EXAMINATION TYPE: XR chest 2V DATE OF EXAM: 07/09/2016 3:48 PM HISTORY: difficulty breathing. REFERENCE: Previous study dated 06/12/2016. FINDINGS: There has been a previous ACDF in the lower cervical spine. The lungs are overinflated. There is a calcified granuloma in the right midlung. Pleural space are cl ear. The heart is not enlarged. IMPRESSION: 1. COPD. 2. EVIDENCE OF OLD GRANULOMATOUS DISEASE.
[2016-07-09] MEDS ORDERED: NICOTINE 14MG/24HR PATCH TRANSDERM STA (17:05)
[2016-07-09] MEDS: IPRATROPIUM-ALBUTEROL 3 ML NEB INHALATION SCH ×2 (19:43→23:00)
[2016-07-09 20:15] VITALS: BMI 18.8
[2016-07-09] MEDS: SODIUM CHLORIDE 0.9% 1,000 ML IV SCH ×2 (21:39→21:44)
[2016-07-09] MEDS: MELATONIN 3 MG TABLET PO PRN (21:43)
[2016-07-09] MEDS: ATORVASTATIN 40 MG TAB PO SCH (21:43)
[2016-07-09] MEDS: methylPREDNISolone SOD SUCCI 125 MG/2 ML VIAL IV SCH (21:43)
[2016-07-09] MEDS: LORazepam 0.5 MG TAB PO SCH (21:43)
[2016-07-10] MEDS: methylPREDNISolone SOD SUCCI 125 MG/2 ML VIAL IV SCH ×5 (01:30→23:47)
[2016-07-10] MEDS: IPRATROPIUM-ALBUTEROL 3 ML NEB INHALATION SCH ×6 (04:23→23:33)
[2016-07-10] MEDS: amLODIPine 2.5 MG TAB PO SCH (08:45)
[2016-07-10] MEDS: LEVOFLOXACIN 500 MG TAB PO SCH (08:45)
[2016-07-10] MEDS: HYDROcodone/APAP 7.5-325MG 1 EACH TAB PO PRN (08:45)
[2016-07-10] MEDS: LORazepam 0.5 MG TAB PO SCH ×2 (08:45→21:57)
--- NOTE | 2016-07-10 10:54 | P.CNPUL ---
History of Present Illness Consult date: 07/10/16 Reason for consult: dyspnea, cough, COPD Chief complaint: Shortness of breath History of present illness: 66-year-old female well-known to me. She has history of chronic obstructive pulmonary disease quite severe. Unfortunately she comes into the hospital we get her well we sent her home she starts to smoke doesn't take her medications or use her oxygen and she comes right back in again. This has happened multiple times in the last couple years. Anyway she came to the emergency room for complaints of increasing shortness of breath. She was coughing. She was wheezing. She was coughing up phlegm. The patient apparently was also smoking and drinking as mentioned above. She was brought in by EMS. She was quite dyspneic when she came in. She also had some nausea with vomiting. Anyway she currently on the third floor. Her COPD is active. Chest x-ray showed changes of COPD with some granulomatous disease but nothing acute. She was just in a couple weeks back. Review of Systems A 12 point review of system is positive for shortness breath chest tightness wheezing and cough. Coughing up a small amount of phlegm. 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 Last Myocardial Infarction Date:: 2011? History of Any Multi-Drug Resistant Organisms: None Reported Past Surgical History: Appendectomy, Back Surgery, Bowel Resection, Section, Hysterectomy, Orthopedic Surgery Additional Past Surgical History / Comment(s): 10/28/15 anterior cervical decompression fusion C3-4,C4-5,C5-6 with NIM cord monitoring, BACK SURGERY lami / FUSION/discectomy, manolo CATARACT SURGERY, LASER EYE SURGERY FOR GLAUCOMA., RIGHT KNEE SURGERY(fx kneecap). Neck surgery, has bars and screws in the neck Past Anesthesia/Blood Transfusion Reactions: No Reported Reaction Past Psychological History: Anxiety Additional Psychological History / Comment(s): Pt has a son and laurie-in-law that reside with her. She uses a wheeled walker to ambulate. She does not drive-a friend takes her to appts. She has O2 at 3L/[place] ATC. She has a nebulizer. Smoking Status: Current every day smoker Past Alcohol Use History: Occasional Additional Past Alcohol Use History / Comment(s): Has been SMOKING FOR 59 YEARS.SMOKING SINCE 7 YEARS OLD, USED TO SMOKE 3 PPD. SMOKES 4 CIGARRETTES A DAY Past Drug Use History: None Reported Additional Drug Use History / Comment(s): TAKES HER PRESCRIBED NORCO. - Past Family History Mother Family Medical History: Myocardial Infarction (UT) Additional Family Medical History / Comment(s): Mother had a UT in her 50's Father Family Medical History: No Reported History Additional Family Medical History / Comment(s): FORM OLD AGE Brother(s) Family Medical History: Asthma, COPD Sister(s) Family Medical History: Asthma, COPD Medications and Allergies Home Medications Medication Instructions Recorded Confirmed Type Albuterol Inhaler [Ventolin Hfa 1 - 2 puff INHALATION RT-Q4H PRN 09/30/15 History Inhaler] Budesonide-Formot 160-4.5 Mcg 2 puff INHALATION RT-BID 10/12/15 07/09/16 History [Symbicort 160-4.5 Mcg Inhaler] Atorvastatin Calcium [Lipitor] 40 mg PO HS 05/06/16 07/09/16 History LORazepam [Ativan] 0.5 mg PO BID 05/06/16 07/09/16 History Melatonin 3 mg PO HS 05/06/16 07/09/16 History HYDROcodone/APAP 7.5-325MG [[place] 1 tab PO Q8H PRN 06/12/16 07/09/16 History 7.5-325] amLODIPine [Norvasc] 2.5 mg PO DAILY 07/09/16 07/09/16 History Allergies Allergy/AdvReac Type Severity Reaction Status Date / Time pneumococcal vaccine Allergy Unknown Unknown Verified 07/09/16 20:01 Influenza Virus Vaccines Allergy Unknown Verified 07/09/16 20:01 Physical Exam Osteopathic Statement: *. No significant issues noted on an osteopathic structural exam other than those noted in the History and Physical/Consult. Vitals: Vital Signs Temp Pulse Pulse Resp BP BP Pulse Ox 07/10/16 08:00 97.7 F 97 20 140/67 99 07/10/16 06:54 96 07/10/16 06:45 88 07/10/16 04:00 97.7 F 83 18 137/79 100 07/10/16 00:00 18 07/09/16 23:47 82 18 125/61 99 07/09/16 20:00 20 07/09/16 19:51 84 07/09/16 19:44 88 07/09/16 19:14 97.9 F 93 20 126/94 99 07/09/16 18:44 97.9 F 89 20 113/58 07/09/16 17:24 96.9 F L 88 24 134/61 98 Intake and Output 07/09/16 07/10/16 07/10/16 22:59 06:59 14:59 Intake Total 420 Balance 420 Intake: Oral 420 Other: # Voids 1 1 1 # Bowel Movements 1 Weight 45.3 kg No acute distress, quite thick Neck and dyspneic. No audible wheezing. Chest is very congested when she coughs. HEENT examination is grossly unremarkable. Mixed membranes are moist. No oral lesions. Neck supple. Full range of motion. No adenopathy. Cardiovascular examination reveals regular rhythm rate. S1-S2 normal. No murmur. No S3-S4. Lungs reveal coarse inspiratory next or rhonchi and wheezes. Breath sounds diminished. This prolongation. Abdomen soft bowel sounds are heard. Extremities are intact. Results - Laboratory Findings CBC and BMP: 07/09/16 15:15 07/09/16 15:15 PT/INR, D-dimer PT 10.2 sec (9.0-12.0) 07/09/16 15:15 INR 1.0 (<1.1) 07/09/16 15:15 - Diagnostic Findings Chest x-ray: image reviewed (Chest x-ray labs and medications are all reviewed.) Assessment and Plan (1) Acute exacerbation of chronic obstructive airways disease Status: Acute Plan: Plan The patient's medications x-rays and labs are all reviewed. Additional recommendations suggestions are forthcoming. We'll make sure she is on all the appropriate medications as including short acting beta agonist short acting muscarinic antagonist a long-acting beta agonist and inhaled corticosteroid systemic corticosteroids and antibiotics. Time with Patient: Greater than 30
[2016-07-10] MEDS: SODIUM CHLORIDE 0.9% 1,000 ML IV SCH (13:28)
[2016-07-10] MEDS ORDERED: IV VANCOMYCIN PER PHARMACY 1 EACH MISC MISCELLANE PRN (15:31)
[2016-07-10 15:57] LABS: Anisocytosis Slight; CH 27.9; CHCM 31.7; HCT 35.6 % (34.0-46.0); HDW 2.81; HGB 11.2 gm/dL (11.4-16.0); Hypochromasia Slight; MCH 27.9 pg (25.0-35.0); MCHC 31.6 g/dL (31.0-37.0); MCV 88.3 fL (80.0-100.0); RBC 4.02 m/uL (3.80-5.40); RDW 18.4 % (11.5-15.5); WBC 8.8 k/uL (3.8-10.6)
[2016-07-10] MEDS: VANCOMYCIN 750 MG in SODIUM CHLORIDE 0.9% 250 ML IVPB SCH (18:31)
--- NOTE | 2016-07-10 19:31 | HP ---
DATE OF ADMISSION: Patient is a 66-year-old female. Patient ( ) at home. Does have advanced COPD, came in with complaints of increased shortness of breath. Patient's chest x-ray did not show any pneumonia. Patient had febrile illness about a couple of days ago with body aches, appears to be typical flu. I will obtain influenza testing. Patient is having ( ). Patient was admitted for COPD exacerbation. Patient was started on levofloxacin. Patient was evaluated by Pulmonary. Later in the day the patient had positive blood culture ( ). Repeat blood cultures today and tomorrow. There is a possibility of contamination, but patient is definitely risk for Staphylococcal pneumonia or Staphylococcus bronchitis leading to bacteremia, because of possible recent influenza infection or evidenced by her symptoms. Patient was partying yesterday and did drink quite a bit. Unfortunately, the patient continues to smoke. REVIEW OF SYSTEMS: CONSTITUTIONAL: No fever, no malaise, no fatigue. HEENT: No recent visual problems or hearing problems. Denied any sore throat. CARDIOVASCULAR: No chest pain, orthopnea, PND, no palpitations, no syncope. PULMONARY: As described in HPI. GASTROINTESTINAL: No diarrhea, no nausea, no vomiting, no abdominal pain. Normoactive bowel sounds. NEUROLOGICAL: No headaches, no weakness, no numbness. HEMATOLOGICAL: Denies any bleeding or petechiae. GENITOURINARY: Denies any burning micturition, frequency, or urgency. MUSCULOSKELETAL/RHEUMATOLOGICAL: Denies any joint pain, swelling, or any muscle pain. ENDOCRINE: Denies any polyuria or polydipsia. The rest of the 14 point review of systems is negative. HOME MEDICATIONS: Albuterol, pravastatin, formoterol, atorvastatin, lorazepam, melatonin, ( ), albuterol, ipratropium. ALLERGIES: ALLERGIC TO PNEUMOCOCCAL VACCINE, ( ) VACCINE. PAST MEDICAL HISTORY: Significant for ( ), chronic obstructive pulmonary disease, gastroesophageal reflux disease, hyperlipidemia, hypertension, myocardial infarction, osteoarthritis, sleep apnea. Patient had appendectomy, back surgery, bowel resection, section, hysterectomy and orthopedic surgery. SOCIAL HISTORY: Patient continues to smoke. Denied any alcohol abuse or any drug abuse. FAMILY HISTORY: Mother had myocardial infarction at age 50. Father of old age. Brother had asthma and COPD. Sister had asthma and COPD. PHYSICAL EXAMINATION: VITAL SIGNS: Temperature 96.7, pulse of 86, respiratory rate of 13, blood pressure 140/70, saturating at 97% on room air. GENERAL: The patient is alert and oriented x3, patient is in moderate respiratory distress at rest. HEENT: Pupils are round and equally reacting to light. EOMI. No scleral icterus. No conjunctival pallor. Normocephalic, atraumatic. No pharyngeal erythema. No thyromegaly. CARDIOVASCULAR: S1 and S2 present. No murmurs, rubs, or gallops. PULMONARY: Significant expiratory wheezing where the patient has significant limited air entry to bilateral lung reynolds. Patient is in respiratory distress as mentioned above. Patient is wheezing. ( ) was obtained. ABDOMEN: Soft, nontender, nondistended, normoactive bowel sounds. No palpable organomegaly. MUSCULOSKELETAL: No joint swelling or deformity. EXTREMITIES: No cyanosis, clubbing, or pedal edema. NEUROLOGICAL: Gross neurological examination did not reveal any focal deficits. SKIN: No rashes. LABORATORY DATA: CBC and CMP are abnormal for mildly elevated WBC count of 10,900 neutrophilic leukocytosis and mildly low sodium of 133. Blood cultures as mentioned above. ASSESSMENT AND PLAN: 1. Acute on chronic hypercapnic respiratory failure secondary to chronic obstructive pulmonary disease exacerbation. Patient will benefit from steroids and inhalational treatments. Patient is on levofloxacin and will continue. 2. Bacteremia with Gram-positive cocci. Unsure whether it is contamination or not. The patient will be started on vancomycin IV until we get the finalization of the cultures and will repeat blood cultures today and tomorrow will be obtained. 3. Continued nicotine use. Counseling was provided. ( ). 4. Hypertension. 5. Gastroesophageal reflux disease. 6. Hyperlipidemia. 7. Sleep apnea. For above mentioned chronic medical problems I will go ahead and continue home medications. extensive counseling regarding nicotine use was provided that I do not believe will be any benefit as patient never quit smoking.
[2016-07-10] MEDS: FORMOTEROL FUMARATE 20 MCG/2 ML NEBU INHALATION SCH (19:35)
[2016-07-10] MEDS: BUDESONIDE 1 MG/2 ML NEBU INHALATION SCH (19:35)
[2016-07-10] MEDS: MELATONIN 3 MG TABLET PO PRN (21:57)
[2016-07-10] MEDS: ATORVASTATIN 40 MG TAB PO SCH (21:57)
[2016-07-10] MEDS: guaiFENesin SYRUP 100MG/5ML 200 MG/10 ML CUP PO PRN (21:57)
[2016-07-11] MEDS: IPRATROPIUM-ALBUTEROL 3 ML NEB INHALATION SCH ×4 (03:36→15:21)
[2016-07-11] MEDS: methylPREDNISolone SOD SUCCI 125 MG/2 ML VIAL IV SCH ×3 (05:43→18:49)
[2016-07-11] MEDS: VANCOMYCIN 750 MG in SODIUM CHLORIDE 0.9% 250 ML IVPB SCH (06:39)
[2016-07-11] MEDS: FORMOTEROL FUMARATE 20 MCG/2 ML NEBU INHALATION SCH (07:00)
[2016-07-11] MEDS: BUDESONIDE 1 MG/2 ML NEBU INHALATION SCH (07:00)
[2016-07-11 07:19] LABS: Anisocytosis Slight; CH 27.5; CHCM 30.4; HCT 33.8 % (34.0-46.0); HDW 2.71; HGB 10.7 gm/dL (11.4-16.0); Hypochromasia Moderate; MCH 28.8 pg (25.0-35.0); MCHC 31.8 g/dL (31.0-37.0); MCV 90.7 fL (80.0-100.0); RBC 3.72 m/uL (3.80-5.40); RDW 18.3 % (11.5-15.5)
[2016-07-11 07:49] LABS: Anion Gap 9 mmol/L; Blood Urea Nitrogen 12 mg/dL (7-17); Calcium 8.3 mg/dL (8.4-10.2); Carbon Dioxide 23 mmol/L (22-30); Chloride 106 mmol/L (98-107); Glucose 166 mg/dL (74-99); Non-African American GFR(MDRD) >60 (>60 ml/min/1.73 sqM); Potassium 4.2 mmol/L (3.5-5.1); Sodium 138 mmol/L (137-145)
[2016-07-11] MEDS: LORazepam 0.5 MG TAB PO SCH (08:18)
[2016-07-11] MEDS: LEVOFLOXACIN 500 MG TAB PO SCH (08:18)
[2016-07-11] MEDS: HYDROcodone/APAP 7.5-325MG 1 EACH TAB PO PRN (09:03)
[2016-07-11] MEDS: amLODIPine 2.5 MG TAB PO SCH (09:03)
[2016-07-11] MEDS: guaiFENesin SYRUP 100MG/5ML 200 MG/10 ML CUP PO PRN (09:03)
[2016-07-11] MEDS: SODIUM CHLORIDE 0.9% 1,000 ML IV SCH (10:10)
[2016-07-11 16:09] VITALS: BP 143/65; PULSE 103; RESP 20; TEMP 98.1
--- NOTE | 2016-07-11 16:54 | P.DS ---
Providers Date of admission: 07/11/16 09:34 Expected date of discharge: 07/11/16 Attending physician: Daryl Maier Consults: Dr. Carrero, Pulmonary Primary care physician: Chantal Acevedo Hospital Course: Final Diagnoses: 1. Acute exacerbation of COPD 2. Acute on chronic hypercapnic respiratory failure secondary to the above 3. Bacteremia with gram-positive cocci, now reporting coagulase-negative staph. 4. Continued ongoing nicotine abuse 5. Alcohol abuse 6. Hypertension 7. Gastroesophageal reflux disease 8. Hyperlipidemia 9. Sleep apnea Hospital course:This is a 66-year-old female admitted with acute COPD exacerbation, nicotine and alcohol abuse and multiple other medical issues in a patient with history of noncompliance with medical regime. Evaluated by pulmonary. Maintained on nebulized bronchodilators, steroids and antibiotics with breathing improving. Preliminary Blood cultures reporting gram-positive cocci in clusters, now reporting coagulase-negative staph. Significant clinical improvement. Cleared by pulmonary for discharge. Patient is being discharged home in a stable condition with guarded prognosis. Patient Condition at Discharge: Stable Plan - Discharge Summary New Discharge Prescriptions: Levofloxacin [Levaquin] 500 mg PO DAILY #3 tab predniSONE 10 mg PO DIRECTED #30 tab Discharge Medication List Albuterol Inhaler [Ventolin Hfa Inhaler] 1 - 2 puff INHALATION RT-Q4H PRN [History] Budesonide-Formot 160-4.5 Mcg [Symbicort 160-4.5 Mcg Inhaler] 2 puff INHALATION RT-BID 10/12/15 [History] Atorvastatin Calcium [Lipitor] 40 mg PO HS 05/06/16 [History] LORazepam [Ativan] 0.5 mg PO BID 05/06/16 [History] Melatonin 3 mg PO HS 05/06/16 [History] HYDROcodone/APAP 7.5-325MG [[place] 7.5-325] 1 tab PO Q8H PRN 06/12/16 [History] Albuterol Nebulized [Ventolin Nebulized] 2.5 mg INHALATION RT-QID #0 06/13/16 [ Rx] Ipratropium Nebulized [Atrovent Nebulized] 0.5 mg INHALATION RT-QID #0 [Rx] amLODIPine [Norvasc] 2.5 mg PO DAILY 07/09/16 [History] Levofloxacin [Levaquin] 500 mg PO DAILY #3 tab 07/11/16 [Rx] predniSONE 10 mg PO DIRECTED #30 tab 07/11/16 [Rx] Follow up Appointment(s)/Referral(s): Kristina Cornejo MD [Primary Care Provider] - 3 Days Kamran Carrero DO [Doctor of Osteopathic Medicine] - 1 Week Ambulatory/Diagnostic Orders: Complete Blood Count w/diff [LAB.AMB] Time Frame: 3 Days, Location: Determined By Patient Activity/Diet/Wound Care/Special Instructions: 3 l NC O2 Diet: Cardiac Activity: Limited till follow up No EtOH, no smoking
--- NOTE | 2016-07-11 17:27 | P.PN ---
Subjective A 66-year-old female patient with known history of advanced COPD coming in for an acute COPD exacerbation. The patient is still congested and bronchospastic and wheezy, however the patient insists on being discharged home today knowing that she has a birthday alliance party of one of her grandkids. She was drinking and smoking and prior to her hospital admission. She is getting a bit better and in my opinion she is not absolutely ready to get discharged home today however she continues to insist. I think gradient was were being made for her to go home after she was able to talk and converse the hospitalist to let her go and discharge her today. No chills. No fever. No chest pain. Objective - Vital Signs Vital signs: Vital Signs Temp 98.1 F 07/11/16 16:00 Pulse 103 H 07/11/16 16:00 Resp 20 07/11/16 16:00 BP 143/65 07/11/16 16:00 Pulse Ox 96 07/11/16 16:00 Intake & Output 07/10/16 07/11/16 07/11/16 18:59 06:59 18:59 Intake Total 340 Balance 340 Intake: Oral 340 Other: Voiding Method Bedside Commode # Voids 1 - Exam Fell and frail female patient nonacute distress. Not using his symptoms of breathing.Head exam was generally normal. There was no scleral icterus or corneal arcus. Mucous membranes were moist.Neck was supple and without jugular venous distension, thyromegaly, or carotid bruits. Carotids were easily palpable bilaterally. There was no adenopathy. Lung sounds are diminished and there is prolongation of expiratory phase of breathing and scattered expiratory wheezes heard throughout the lung reynolds.Abdominal exam revealed normal bowel sounds. The abdomen was soft, non-tender, and without masses, organomegaly, or appreciable enlargement of the abdominal aorta.Examination of the extremities revealed easily palpable radial, femoral and pedal pulses. There was no cyanosis , clubbing or edema. - Labs CBC & Chem 7: 07/11/16 06:41 07/11/16 06:35 Assessment and Plan Plan: Assessment 1 COPD exacerbation, improving slowly 2 shortness of breath secondary to above 3 hyperlipidemia 4 coronary artery disease 5 hypertension 6 nicotine addiction/smoking Plan Continue bronchodilators. Prednisone burst taper. Symbicort on outpatient basis. Smoking cessation counseling was done. Follow-up with pulmonary care and pulmonary.
[2016-07-12] MEDS ORDERED: VANCOMYCIN TROUGH DUE 1 EACH MISC MISCELLANE ONE (05:00)
== END 2016-07-11 18:15 | disposition home or self-care (01) | DRG 190 ==
LOC: EC 15:13 → 3OBS 17:02 → OBSVTOIN 07-11 09:34
PROVIDERS: ADMIT Internal Medicine; ATTEND Internal Medicine
DX: J44.1 Chronic obstructive pulmonary disease with (acute) exacerbation (principal); J96.22 Acute and chronic respiratory failure with hypercapnia; J96.21 Acute and chronic respiratory failure with hypoxia; R78.81 Bacteremia; Z99.81 Dependence on supplemental oxygen; J45.909 Unspecified asthma, uncomplicated; I10 Essential (primary) hypertension; K21.9 Gastro-esophageal reflux disease without esophagitis; E78.5 Hyperlipidemia, unspecified; G47.30 Sleep apnea, unspecified; I25.2 Old myocardial infarction; M19.91 Primary osteoarthritis, unspecified site; F41.9 Anxiety disorder, unspecified; H40.9 Unspecified glaucoma; F10.10 Alcohol abuse, uncomplicated; I25.10 Atherosclerotic heart disease of native coronary artery without angina pectoris; F17.210 Nicotine dependence, cigarettes, uncomplicated; Z91.19 Patient's noncompliance with other medical treatment and regimen; Z90.710 Acquired absence of both cervix and uterus; Z98.42 Cataract extraction status, left eye; Z98.41 Cataract extraction status, right eye; Z88.7 Allergy status to serum and vaccine; Z87.11 Personal history of peptic ulcer disease; Z85.828 Personal history of other malignant neoplasm of skin; Z79.51 Long term (current) use of inhaled steroids; Z79.899 Other long term (current) drug therapy
CPT/HCPCS: 36415; 71020; 80048; 80053; 80320; 82150; 82550; 82553; 83605; 83690; 83735; 83880; 84484; 85025; 85027; 85610; 85730; 87040; 87077; 87186; 87502; 93005; 94640; 94760; 96361; 96365; 96366; 96367; 96375; 96376; 99291

== ENCOUNTER 2016-08-27 19:57 | Inpatient (IN) | payer MEDICARE, OTHER ==
[2016-08-27] MEDS ORDERED: SODIUM CHLORIDE 0.9% 1,000 ML IV STA (20:25)
[2016-08-27] MEDS ORDERED: ONDANSETRON 4 MG/2 ML VIAL IVP STA (20:25)
[2016-08-27] MEDS ORDERED: MORPHINE SULFATE 4 MG/ML SYRINGE IV STA (20:25)
[2016-08-27] MEDS ORDERED: IPRATROPIUM 0.5 MG/2.5 ML NEBU INHALATION STA (20:27)
[2016-08-27] MEDS ORDERED: ALBUTEROL NEBULIZED 2.5 MG/3 ML INHALATION STA (20:27)
[2016-08-27] MEDS ORDERED: methylPREDNISolone SOD SUCCI 125 MG/2 ML VIAL IV STA (20:27)
--- NOTE | 2016-08-27 20:34 | ED ---
Chest Pain HPI - General Chief Complaint: Chest Pain Stated Complaint: chest pain Time Seen by Provider: 08/27/16 20:19 Source: patient Mode of arrival: EMS Limitations: no limitations - History of Present Illness Initial Comments: Draining about right-sided chest pain and severe shortness of breath she has a history of COPD, she started smoking when she was 7 years old and now she 66 chest pain been ongoing for 3 days is worse with deep breaths. Complains about cough bringing up any regular pain any sputum. Denies any trauma or fall hurting her right chest area denies any headaches no neck stiffness does have a chest pain and shortness of breath complaining about cough no abdominal pain no frequency urgency dysuria no symptoms of TIA or CVA - Related Data Home Medications Medication Instructions Recorded Confirmed Albuterol Inhaler [Ventolin Hfa 1 - 2 puff INHALATION RT-Q4H PRN 09/30/15 Inhaler] Budesonide-Formot 160-4.5 Mcg 2 puff INHALATION RT-BID 10/12/15 07/09/16 [Symbicort 160-4.5 Mcg Inhaler] Atorvastatin Calcium [Lipitor] 40 mg PO HS 05/06/16 07/09/16 LORazepam [Ativan] 0.5 mg PO BID 05/06/16 07/09/16 Melatonin 3 mg PO HS 05/06/16 07/09/16 HYDROcodone/APAP 7.5-325MG [[place] 1 tab PO Q8H PRN 06/12/16 07/09/16 7.5-325] amLODIPine [Norvasc] 2.5 mg PO DAILY 07/09/16 07/09/16 Previous Rx's Medication Instructions Recorded Albuterol Nebulized [Ventolin 2.5 mg INHALATION RT-QID #0 06/13/16 Nebulized] Ipratropium Nebulized [Atrovent 0.5 mg INHALATION RT-QID #0 06/13/16 Nebulized] Levofloxacin [Levaquin] 500 mg PO DAILY #3 tab 07/11/16 predniSONE 10 mg PO DIRECTED #30 tab 07/11/16 Allergies Allergy/AdvReac Type Severity Reaction Status Date / Time pneumococcal vaccine Allergy Unknown Unknown Verified 08/27/16 20:12 Influenza Virus Vaccines Allergy Unknown Verified 08/27/16 20:12 Review of Systems ROS Statement: Those systems with pertinent positive or pertinent negative responses have been documented in the HPI. ROS Other: All systems not noted in ROS Statement are negative. EKG Findings - EKG Comments: EKG Findings:: Ventricular rate is 17 AR interval is 126 QRS duration is 92 QT/ QTc is 342/456 review of this EKG in comparison with the old EKG done on 2016 does not show any significant pathology or neither does it show any changes from EKG done on 07/09/2069 Past Medical History Past Medical History: Asthma, Cancer, COPD, Eye Disorder, GERD/Reflux, Hyperlipidemia, Hypertension, Myocardial Infarction (SD), Osteoarthritis (OA), Pneumonia, Respiratory Disorder, Sleep Apnea/CPAP/BIPAP Additional Past Medical History / Comment(s): Advanced oxygen-dependent COPD with chronic hypoxic respiratory failure and with multiple hospitalization for COPD exacerbations, born with a single left kidney, previous SD, PUD, bilateral glaucoma, skin cancer, previous history of bowel obstruction, 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 Last Myocardial Infarction Date:: 2011? History of Any Multi-Drug Resistant Organisms: None Reported Past Surgical History: Appendectomy, Back Surgery, Bowel Resection, Section, Hysterectomy, Orthopedic Surgery Additional Past Surgical History / Comment(s): 10/28/15 anterior cervical decompression fusion C3-4,C4-5,C5-6 with NIM cord monitoring, BACK SURGERY lami / FUSION/discectomy, manolo CATARACT SURGERY, LASER EYE SURGERY FOR GLAUCOMA., RIGHT KNEE SURGERY(fx kneecap). Neck surgery, has bars and screws in the neck Past Anesthesia/Blood Transfusion Reactions: No Reported Reaction Past Psychological History: Anxiety Additional Psychological History / Comment(s): Pt has a son and laurie-in-law that reside with her. She uses a wheeled walker to ambulate. She does not drive-a friend takes her to [employer]. She has O2 at 3L/[place] ATC. She has a nebulizer. Smoking Status: Current every day smoker Past Alcohol Use History: Occasional Additional Past Alcohol Use History / Comment(s): Has been SMOKING FOR 59 YEARS.SMOKING SINCE 7 YEARS OLD, USED TO SMOKE 3 PPD. SMOKES 4 CIGARRETTES A DAY Past Drug Use History: None Reported Additional Drug Use History / Comment(s): TAKES HER PRESCRIBED NORCO. - Past Family History Mother Family Medical History: Myocardial Infarction (SD) Additional Family Medical History / Comment(s): Mother had a SD in her 50's Father Family Medical History: No Reported History Additional Family Medical History / Comment(s): FORM OLD AGE Brother(s) Family Medical History: Asthma, COPD Sister(s) Family Medical History: Asthma, COPD General Exam - General Exam Comments Initial Comments: General: The patient is awake and alert, he looks thin, pale and discussed Skin: Skin is warm and dry and no rashes or lesions are noted. Eye: Pupils are equal, round and reactive to light, extra-ocular movements are intact; there is normal conjunctiva bilaterally. Ears, nose, mouth and throat: There are moist mucous membranes and no oral lesions. Neck: The neck is supple, there is no tenderness or JVD. Cardiovascular: There is a regular rate and rhythm. No murmur, rub or gallop is appreciated. Quite tender to palpate in the right side of the chest wall, no shingles noticed no obvious cellulitis or abscess noticed Respiratory: To auscultation bilateral, some is consistent with a severe COPD Gastrointestinal: Soft, non-distended, non-tender abdomen without masses or organomegaly noted. There is no rebound or guarding present. Bowel sounds are unremarkable. Back: There is no tenderness to palpation in the midline. There is no obvious deformity. Musculoskeletal: Normal ROM, no tenderness, There is no pedal edema. There is no calf tenderness or swelling. No cords were appreciated. Neurological: CN II-XII intact, Cranial nerves III through XII are intact. There are no obvious motor or sensory deficits. Coordination appears grossly intact. Speech is normal. Psychiatric: Cooperative, appropriate mood & affect, normal judgment. Limitations: no limitations Course Vital Signs 08/27/16 08/27/16 08/27/16 20:00 20:40 20:45 Temperature 98.3 F Pulse Rate 102 H 92 91 Respiratory 22 22 Rate Blood Pressure 137/78 112/70 O2 Sat by Pulse 99 100 Oximetry 08/27/16 08/27/16 08/27/16 21:00 21:12 21:21 Temperature Pulse Rate 83 85 Respiratory 22 Rate Blood Pressure O2 Sat by Pulse Oximetry 08/27/16 08/27/16 21:30 21:34 Temperature Pulse Rate 84 98 Respiratory 22 Rate Blood Pressure 130/69 O2 Sat by Pulse 98 Oximetry Critical Care Time Total Critical Care Time: 30 Critical Care Time: He was in a severe distress when she arrived, short-acting and long-acting bronchodilators were given a neb forearm, inhaled steroids and IV steroids helped her to get better, CBC, compressive metabolic panel troponin EKG and d- dimer were old. They were reviewed there negative) for discussed with the patient she would need to command with the for IV steroids and bronchodilators as well as IV antibiotics she will consult Dr. Harper a silvering applicator as well Disposition Clinical Impression: Pleuritic chest pain, Acute exacerbation of COPD with asthma, Chest pain Disposition: ADMITTED IP TO THIS HOSP Condition: Fair Referrals: Kristina Cornejo MD [Primary Care Provider] - 1-2 days
[2016-08-27 20:58] LABS: Anisocytosis Slight; Basophils % (A) 0 %; CH 29.8; CHCM 33.5; Eosinophils % (A) 0 %; HCT 38.8 % (34.0-46.0); HDW 2.55; Luc # (Auto) 0.09; Luc % (Auto) 1; Lymphocytes # (A) 2.2 k/uL (1.0-4.8); Lymphocytes % (A) 27 %; MCH 29.9 pg (25.0-35.0); MCHC 33.4 g/dL (31.0-37.0); MCV 89.4 fL (80.0-100.0); Mean Platelet Volume 7.1; Monocytes # (A) 0.2 k/uL (0-1.0); Monocytes % (A) 3 %; Neutrophils # (A) 5.6 k/uL (1.3-7.7); Neutrophils % (A) 68 %; RBC 4.34 m/uL (3.80-5.40); RDW 17.1 % (11.5-15.5); WBC 8.1 k/uL (3.8-10.6)
[2016-08-27 21:08] LABS: ALT 28 U/L (9-52); AST 26 U/L (14-36); Alkaline Phosphatase 65 U/L (38-126); Anion Gap 12 mmol/L; Blood Urea Nitrogen 10 mg/dL (7-17); Calcium 9.1 mg/dL (8.4-10.2); Carbon Dioxide 22 mmol/L (22-30); Chloride 101 mmol/L (98-107); Glucose 106 mg/dL (74-99); Magnesium 1.8 mg/dL (1.6-2.3); Non-African American GFR(MDRD) >60 (>60 ml/min/1.73 sqM); Potassium 4.6 mmol/L (3.5-5.1); Sodium 135 mmol/L (137-145); Total Bilirubin 0.6 mg/dL (0.2-1.3); Total Protein 6.8 g/dL (6.3-8.2)
[2016-08-27 21:11] LABS: Partial Thromboplastin Time 23.9 sec (22.0-30.0)
[2016-08-27 21:13] LABS: Prothrombin Time 10.3 sec (9.0-12.0)
[2016-08-27 21:19] LABS: Creatine Kinase 75 U/L (30-135)
--- NOTE | 2016-08-27 21:21 | XR ---
EXAMINATION TYPE: XR chest 2V DATE OF EXAM: 08/27/2016 9:13 PM COMPARISON: 07/09/2016 INDICATION: Chest pain TECHNIQUE: Single frontal view of the chest is obtained. FINDINGS: The heart size is normal. The pulmonary vasculature is normal. There are chronic nodules within the right midlung measuring 0.4 cm present previously. There is hyperinflation flattening the diaphragms compatible COPD. Some minimal tenting of the left d iaphragm is compatible with minimal subsegmental atelectasis. Anterior cervical fusion is evident. IMPRESSION: 1. COPD. 2. Minimal subsegmental atelectasis left base 3. Suspected granuloma right midlung
[2016-08-27 21:33] LABS: Creatine Kinase MB 1.8 ng/mL (0.0-2.4); Troponin I <0.012 ng/mL (0.000-0.034)
[2016-08-27] MEDS ORDERED: cefTRIAXone 2,000 MG in SODIUM CHLORIDE 0.9% 100 ML IVPB STA (21:34)
[2016-08-27] MEDS ORDERED: IPRATROPIUM-ALBUTEROL 3 ML NEB INHALATION PRN (22:41)
[2016-08-27] MEDS ORDERED: HYDROcodone/APAP 7.5-325MG 1 EACH TAB PO PRN (22:45)
[2016-08-27] MEDS ORDERED: ENOXAPARIN 60 MG/0.6 ML SYRINGE SQ STA (22:53)
[2016-08-28 00:40] VITALS: BMI 18.5
[2016-08-28] MEDS: SODIUM CHLORIDE 0.9% 1,000 ML IV SCH ×3 (00:53→21:15)
[2016-08-28] MEDS: methylPREDNISolone SOD SUCCI 125 MG/2 ML VIAL IV SCH ×4 (00:54→18:20)
[2016-08-28 07:16] LABS: Glucose,Whole Blood 140 mg/dL (75-99)
[2016-08-28] MEDS: SYMBICORT 160-4.5 MCG INHALER INHALATION SCH ×2 (07:46→20:00)
[2016-08-28] MEDS ORDERED: SYMBICORT 80-4.5 MCG INHALER INHALATION SCH (08:00)
[2016-08-28] MEDS ORDERED: BUDESONIDE 0.5 MG/2 ML NEBU INHALATION SCH (08:00)
[2016-08-28] MEDS: INSULIN LISPRO (humaLOG) 300 UNIT/3 ML VIAL SQ SCH ×4 (09:08→21:20)
[2016-08-28] MEDS: LORazepam 0.5 MG TAB PO SCH ×2 (09:17→20:35)
[2016-08-28] MEDS: LEVOFLOXACIN 500 MG TAB PO SCH (09:18)
[2016-08-28] MEDS: amLODIPine 2.5 MG TAB PO SCH (09:19)
[2016-08-28] MEDS: NICOTINE 21MG/24HR PATCH TRANSDERM SCH (09:20)
[2016-08-28 11:20] LABS: Glucose,Whole Blood 139 mg/dL (75-99)
[2016-08-28] MEDS: IPRATROPIUM-ALBUTEROL 3 ML NEB INHALATION SCH ×4 (11:22→23:13)
--- NOTE | 2016-08-28 13:42 | HP ---
DATE OF ADMISSION: 08/28/2016 CHIEF COMPLAINT: Difficulty in breathing, wheezing. HISTORY OF PRESENT ILLNESS: Ms. Martinez is a 66-year-old female with advanced chronic obstructive pulmonary disease, oxygen dependent, hypertension, hyperlipidemia, [place], coming into the hospital with a chief complaint of difficulty in breathing for the past 2 days. Patient has end-stage COPD and still smokes 4 to 5 cigarettes a day. Patient states last month she had a similar episode for which she was put on tapering dose of steroids and Levofloxacin and discharged home. For the past several days, the patient noticed having shortness of breath and she could hear herself wheezing. Also complains of increased cough with sputum production. Patient follows with Dr. Kristina Cornejo in the outpatient and Dr. Carrero as her agricultural mechanic. The patient denies having any chest pain, any palpitations. No loss of consciousness. No orthopnea, no PND. No swelling of her lower extremities. No recent travel. REVIEW OF SYSTEMS: CONSTITUTIONAL: No fever, chills, or rigors. RESPIRATORY: As per HPI. CARDIOVASCULAR: No chest pain or palpitations. GI: No abdominal pain, nausea, vomiting, or diarrhea. : No dysuria or hematuria. NEUROLOGICAL: No headaches, weakness or tingling or numbness. HEMATOLOGICAL: No history of recurrent infections or easy bleeding or bruising. MUSCULOSKELETAL: No joint pain. No swelling. ENDOCRINE: Denies having any heat or cold intolerance. All 13 systems were reviewed and are negative except for ones mentioned in the HPI. Past medical history significant for end-stage chronic obstructive pulmonary disease, GERD, hypertension, hyperlipidemia and osteoarthritis, sleep apnea. PAST SURGICAL HISTORY: Appendectomy, back surgery, bowel resection, , hysterectomy and orthopedic surgery. ALLERGIES: PNEUMOCOCCAL VACCINE. SOCIAL HISTORY: The patient is a current every day smoker. Denies alcohol abuse. FAMILY HISTORY: Mother had myocardial infarction at age of 55 and of old age. Brother has asthma and COPD. Sister has asthma and COPD. Patient's home medications: 1. Albuterol puffs q.4 hours p.r.n. for shortness of breath. 2. Symbicort 160/4.5, 2 puffs b.i.d. 3. Melatonin 3 mg p.o. q.h.s. 4. Atorvastatin 40 mg p.o. q.h.s. 5. [place] 7.5/325, 1 tablet p.o. q.8 hours p.r.n. for shortness of breath. 6. Amlodipine 2.5 mg p.o. daily. 7. Ativan 0.5 to 1 mg p.o. b.i.d. p.r.n. for anxiety. On examination, patient's vital signs temperature 98.3, heart rate 100, respiratory rate 16, blood pressure is 137/79, saturating at 98% on room air. GENERAL EXAMINATION: Patient is thin, cachectic, in mild respiratory distress. HEAD: Atraumatic, normocephalic. EYES: Pupils round and reactive to light. NECK: No jugular venous distention. No thyromegaly. CARDIAC: S1, S2 heard. Pulmonary: Coarse breath sounds in all lung reynolds. Diffuse expiratory wheezes. ABDOMEN: Soft, nontender. Bowel sounds are positive. MUSCULOSKELETAL: No joint swelling or deformity. EXTREMITIES: No cyanosis. No clubbing. No edema. DOCTORATE OF CHIROPRACTIC: She is alert, awake and oriented x3. No focal neurological deficits. Patient's labs: White count of 8.1, hemoglobin is 13, platelets of 286. Sodium is 135, potassium 4.6, chloride 101, bicarb 22, BUN 10, creatinine 0.50. Troponin less than 0.012. The patient did have a chest x-ray which is showing minimal subsegmental atelectasis at the left base and suspected granuloma of the right mid lung. ASSESSMENT AND PLAN: 1. Acute exacerbation of chronic obstructive pulmonary disease. 2. Acute chronic hypercapnic respiratory failure. 3. Hypertension. 4. Gastroesophageal reflux disease. 5. Hyperlipidemia. 6. Sleep apnea. PLAN: Patient is started on breathing treatments, IV steroids. She showed some significant improvement in her breathing but still wheezing in all lung reynolds. Patient is cachectic. She has end-stage chronic obstructive pulmonary disease. Overall prognosis is very poor. I discussed the CODE STATUS with her. She said she is not made of her mind as of now and wants some time to think about it so as of now she is a FULL CODE. Pulmonary, Dr. Carrero was consulted. Further recommendations to follow depending on the progress of the patient. Overall prognosis is poor due to end-stage chronic obstructive pulmonary disease.
--- NOTE | 2016-08-28 14:48 | P.CNPUL ---
History of Present Illness Consult date: 08/28/16 Reason for consult: dyspnea, chest pain, COPD History of present illness: [id number] female patient, cachectic, advanced oxygen-dependent COPD with chronic hypoxic respiratory failure and multiple has position the past for COPD exacerbation. The patient is still smoking approximately 5 cigarettes on a daily basis. The patient came in with increased cough, skeletal chest wall pain mainly over the anterior chest of the right, increased dyspnea, wheezing, chest congestion, bronchospasm. No chills. No fever. No nausea. No vomiting. No pleurisy. No hemoptysis. No swelling lower extremities. No orthopnea. Chest x-rays typical of COPD. She has been maintained on a combination of Advair and Spiriva on outpatient basis pH she also does have bitten about treatments around the clock. Patient has been in the hospital for almost every other month for the same. Main triggering factor for COPD exacerbation has been her smoking. On previous admissions, the patient required noninvasive positive pressure ventilation/BiPAP for respiratory support. She is an obvious catabolic state that she looks very much cachectic and weak and emaciated. Review of Systems 12 point review of system was done and the positive findings are almost above history of present illness. The patient has poor exercise tolerance. The patient has poor nutritional status. The patient continues to lose weight. She has shortness of breath at all times. No angina and the pain that she is experiencing essentially skeletal in nature. No change in mental status. No nausea. No vomiting. No diarrhea. No abdominal pain. No dysuria frequency or urgency. No falls. No open wounds or sores or ulceration. 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 Last Myocardial Infarction Date:: 2011? History of Any Multi-Drug Resistant Organisms: None Reported Past Surgical History: Appendectomy, Back Surgery, Bowel Resection, Section, Hysterectomy, Orthopedic Surgery Additional Past Surgical History / Comment(s): 10/28/15 anterior cervical decompression fusion C3-4,C4-5,C5-6 with NIM cord monitoring, BACK SURGERY [place]ami / FUSION/discectomy, manolo CATARACT SURGERY, LASER EYE SURGERY FOR GLAUCOMA., RIGHT KNEE SURGERY(fx kneecap). Neck surgery, has bars and screws in the neck Past Anesthesia/Blood Transfusion Reactions: No Reported Reaction Past Psychological History: Anxiety Additional Psychological History / Comment(s): Pt has a son and laurie-in-law that reside with her. She uses a wheeled walker to ambulate. She does not drive-a [place] [facility] [employer] She has O2 at 4L/NC ATC. She has a nebulizer. Smoking Status: Current every day smoker Past Alcohol Use History: Occasional Additional Past Alcohol Use History / Comment(s): Has been SMOKING FOR 59 YEARS.SMOKING SINCE 7 YEARS OLD, USED TO SMOKE 3 PPD. SMOKES 4 CIGARRETTES A DAY Past Drug Use History: None Reported Additional Drug Use History / Comment(s): TAKES HER PRESCRIBED NORCO. - Past Family History Mother Family Medical History: Myocardial Infarction ([place]) Additional Family Medical History / Comment(s): Mother had a MO in her 50's Father Family Medical History: No Reported History Additional Family Medical History / Comment(s): FORM OLD AGE Brother(s) Family Medical History: Asthma, COPD Sister(s) Family Medical History: Asthma, COPD Medications and Allergies Home Medications Medication Instructions Recorded Confirmed Type Albuterol Inhaler [Ventolin Hfa 1 - 2 puff INHALATION RT-Q4H PRN 09/30/15 History Inhaler] Budesonide-Formot 160-4.5 Mcg 2 puff INHALATION RT-BID 10/12/15 08/28/16 History [Symbicort 160-4.5 Mcg Inhaler] Atorvastatin Calcium [Lipitor] 40 mg PO HS 05/06/16 08/28/16 History Melatonin 3 mg PO HS 05/06/16 08/28/16 History HYDROcodone/APAP 7.5-325MG [[place] 1 tab PO Q8H PRN 06/12/16 08/28/16 History 7.5-325] amLODIPine [Norvasc] 2.5 mg PO DAILY 07/09/16 08/28/16 History LORazepam [Ativan] 0.5 - 1 mg PO BID PRN 08/28/16 08/28/16 History Allergies Allergy/AdvReac Type Severity Reaction Status Date / Time pneumococcal vaccine Allergy Unknown Unknown Verified 08/28/16 08:33 Influenza Virus Vaccines Allergy Unknown Verified 08/28/16 08:33 Physical Exam Vitals: Vital Signs Temp Pulse Pulse Resp BP BP Pulse Ox 08/28/16 14:07 97.6 F 104 H 16 134/78 97 08/28/16 11:30 84 08/28/16 11:22 88 08/28/16 08:04 88 08/28/16 07:46 88 08/28/16 07:35 98.3 F 16 137/79 98 08/28/16 01:10 98.0 F 103 H 24 168/69 96 08/28/16 00:30 22 08/27/16 23:43 98.5 F 89 20 126/68 99 08/27/16 23:29 98 22 116/58 99 08/27/16 21:34 98 22 130/69 98 08/27/16 21:30 84 08/27/16 21:21 85 08/27/16 21:12 22 08/27/16 21:00 83 08/27/16 20:45 91 22 112/70 100 08/27/16 20:40 92 08/27/16 20:00 98.3 F 102 H 22 137/78 99 Intake and Output 08/27/16 08/28/16 08/28/16 22:59 06:59 14:59 Intake Total 590 360 Balance 590 360 Intake: Oral 590 360 Other: Voiding Method Toilet Toilet # Voids 1 Weight 44.452 kg 44.452 kg Thin, frail, cachectic, nonacute distress.Head exam was generally normal. There was no scleral icterus or corneal arcus. Mucous membranes were moist.Neck was supple and without jugular venous distension, thyromegaly, or carotid bruits. Carotids were easily palpable bilaterally. There was no adenopathy. The patient is edentulous. Lung sounds are diminished bilaterally along with diffuse extremity wheezes throughout the lung his bilaterally.Cardiac exam revealed the PMI to be normally situated and sized. The rhythm was regular and no extrasystoles were noted during several minutes of auscultation. The first and second heart sounds were normal and physiologic splitting of the second heart sound was noted. There were no murmurs, rubs, clicks, or gallops.Abdominal exam revealed normal bowel sounds. The abdomen was soft, non- tender, and without masses, organomegaly, or appreciable enlargement of the abdominal aorta.Examination of the extremities revealed easily palpable radial, femoral and pedal pulses. There was no cyanosis, clubbing or edema. Results - Laboratory Findings CBC and BMP: 08/27/16 20:15 08/27/16 20:15 PT/INR, D-dimer PT 10.3 sec (9.0-12.0) 08/27/16 20: INR 1.0 (<1.1) 08/27/16 20: D-Dimer 0.35 mg/L FEU (<0.60) 08/27/16 20:15 Abnormal lab findings: Abnormal Labs 08/27/16 08/27/16 08/28/16 20:15 20:15 07:14 RDW 17.1 H Sodium 135 L Creatinine 0.50 L Glucose 106 H POC Glucose (mg/dL) 140 H 08/28/16 11:09 RDW Sodium Creatinine Glucose POC Glucose (mg/dL) 139 H - Diagnostic Findings Chest x-ray: image reviewed Assessment and Plan Plan: Assessment 1 acute COPD exacerbation with secondary shortness of breath 2 muscular skeletal chest wall pain secondary to cough and 3 advanced, and end stage COPD with gold stage IV disease and chronic hypoxic history failure 4 nicotine addiction 5 malnourishment 6 hypertension 7 hyperlipidemia 8 coronary artery disease 9 very poor performance and functional status Plan Agree on the current treatment. Walking cessation counseling was done per no need for BiPAP therapy. Apply nicotine patch. Continue systemic steroids. Continue Levaquin. The pain that she is expressing essentially skeletal in nature. Chest x-ray shows COPD and the right midlung granuloma. Long-term prognosis poor. We'll continue to follow.
[2016-08-28 17:13] LABS: Glucose,Whole Blood 149 mg/dL (75-99)
[2016-08-28 20:44] LABS: Glucose,Whole Blood 226 mg/dL (75-99)
[2016-08-28] MEDS ORDERED: ATORVASTATIN 40 MG TAB PO SCH (21:00)
[2016-08-28] MEDS ORDERED: MELATONIN 3 MG TABLET PO SCH (21:00)
[2016-08-29] MEDS: methylPREDNISolone SOD SUCCI 125 MG/2 ML VIAL IV SCH ×3 (01:10→11:50)
[2016-08-29] MEDS: IPRATROPIUM-ALBUTEROL 3 ML NEB INHALATION SCH ×4 (03:10→15:05)
[2016-08-29] MEDS: SODIUM CHLORIDE 0.9% 1,000 ML IV SCH ×2 (04:23→17:04)
[2016-08-29 07:06] LABS: Glucose,Whole Blood 169 mg/dL (75-99)
[2016-08-29 07:22] LABS: Anisocytosis Slight; Basophils % (A) 0 %; CH 29.3; CHCM 31.3; Eosinophils % (A) 0 %; HCT 38.7 % (34.0-46.0); Luc # (Auto) 0.02; Luc % (Auto) 0; Lymphocytes # (A) 0.4 k/uL (1.0-4.8); Lymphocytes % (A) 3 %; MCH 29.2 pg (25.0-35.0); MCHC 31.1 g/dL (31.0-37.0); MCV 93.9 fL (80.0-100.0); Mean Platelet Volume 7.1; Monocytes # (A) 0.2 k/uL (0-1.0); Monocytes % (A) 1 %; Neutrophils # (A) 11.2 k/uL (1.3-7.7); Neutrophils % (A) 95 %; RBC 4.12 m/uL (3.80-5.40); RDW 17.3 % (11.5-15.5); WBC 11.8 k/uL (3.8-10.6); WBC (Perox) 12.48
[2016-08-29] MEDS: INSULIN LISPRO (humaLOG) 300 UNIT/3 ML VIAL SQ SCH ×2 (07:27→13:07)
[2016-08-29] MEDS: amLODIPine 2.5 MG TAB PO SCH (07:28)
[2016-08-29] MEDS: LEVOFLOXACIN 500 MG TAB PO SCH (07:28)
[2016-08-29] MEDS: NICOTINE 21MG/24HR PATCH TRANSDERM SCH (07:28)
[2016-08-29] MEDS: LORazepam 0.5 MG TAB PO SCH (07:33)
[2016-08-29 08:05] LABS: Anion Gap 9 mmol/L; Blood Urea Nitrogen 13 mg/dL (7-17); Calcium 8.5 mg/dL (8.4-10.2); Carbon Dioxide 21 mmol/L (22-30); Chloride 108 mmol/L (98-107); Glucose 163 mg/dL (74-99); Non-African American GFR(MDRD) >60 (>60 ml/min/1.73 sqM); Potassium 4.1 mmol/L (3.5-5.1); Sodium 138 mmol/L (137-145)
[2016-08-29] MEDS: SYMBICORT 160-4.5 MCG INHALER INHALATION SCH (08:09)
[2016-08-29 10:50] LABS: Hemoglobin A1C 5.4 % (4.2-6.1)
[2016-08-29 11:25] LABS: Glucose,Whole Blood 134 mg/dL (75-99)
--- NOTE | 2016-08-29 12:24 | CONS ---
DATE OF CONSULTATION: Mrs. Martinez is a 66-year-old female with a known history of advanced oxygen-dependent COPD, chronic hypoxemia who presented with exacerbation of her COPD and right-sided chest discomfort. The discomfort was worse with deep breathing as well as coughing. She has been coughing worse over the last few days, especially with the warm weather. She denies any dizziness or palpitation. She denies any prior cardiac history. She has no history of PND, orthopnea, or peripheral edema. She does not follow with cardiology on a regular basis and has no cardiac history. Unfortunately she continues to smoke, although she is down from 4 packs to 4 cigarettes a day. She is on oxygen 24 hours. Her coronary risk factor is remarkable for history of hypertension and hyperlipidemia as well as a history of smoking. She is a nondiabetic. Her medications include Albuterol, Lipitor 40 mg daily, Symbicort, Atrovent, amlodipine 2.5 mg daily, Ventolin, hydrocodone and lorazepam. REVIEW OF SYSTEMS: RESPIRATORY SYSTEM: She has history of severe chronic obstructive lung disease with progressive dyspnea. GI SYSTEM: She had a prior history of ulcer, but no recent GI bleeding. SYSTEM: No dysuria or hematuria. NERVOUS SYSTEM: No history of stroke or seizure. PHYSICAL EXAMINATION: She is a 66-year-old female, alert, mildly dyspneic, cachectic. Blood pressure 135/70 with a heart rate in the 90s and low 100. HEAD: Normocephalic. EYES: Sclerae nonicteric. NECK: No bruit. LUNGS: With severe decrease in air exchange with scattered end-expiratory wheezes. HEART: Regular rate and rhythm. S1, S2, no S3, no rub or gallop appreciated. ABDOMEN: Soft, nontender, positive bowel sounds. No organomegaly. EXTREMITIES: No edema, +1 distal pulses. Lab data revealed BUN and creatinine 13 and 0.45. Potassium 4.1. Hemoglobin of 12.0. White blood cells of 11.8. Her EKG revealed a sinus mechanism, rate of [address]-T wave changes. Her chest x-ray is consistent with COPD. IMPRESSION: 1. Exacerbation of chronic obstructive pulmonary disease in a patient with known history of severe advanced lung disease on home 02. 2. Right-sided chest discomfort, atypical for ischemic heart disease. No evidence to suggest cardiac ischemia. Her troponins are negative and there is no evidence of EKG changes. 3. History of hypertension. 4. History of hyperlipidemia. RECOMMENDATION: From the cardiac standpoint, I will continue on the present treatment. I see no evidence to suggest active cardiac disease at this point. I will obtain echocardiogram to evaluate left ventricular systolic function. Thank you for this consult. Will follow with you.
[2016-08-29 14:25] VITALS: BP 152/77; RESP 20; TEMP 98.1
--- NOTE | 2016-08-29 14:32 | CDI ---
In responding to this query, please exercise your independent professional judgment. The [facility] Coding Staff and Clinical Documentation Specialists appreciate your assistance in clarifying documentation, maintaining compliance with coding guidelines, accurately documenting patients condition and capturing severity of illness. The fact that a question is asked does not imply that any particular answer is desired or expected. Communication forms are a method of clarifying documentation and are not made part of the Legal Health Record. Thank you in advance for your clarification. Last Revision, February 2015 Lenore Weller [address] [place] [address] Documentation Clarification Form Date: 08/29/2016 2:22:00 PM From: Justine Suarez, CCS, CCDS Admit Date: 08/27/2016 10:41:00 PM Patient Name: Monica Martinez Visit Number: [id number] Discharge Date: Dr. Misty Birmingham or Dr. Amelia Lujan: 66 yo female, admitted with Acute Exacerbation of Advanced stage COPD, dependent on Home O2 31/10. Smoker since age [age], worked in [employer] a child. Per the 08/28 pulmonary consult: patient is cachetic, thin, emaciated and malnourished. Per the H/P: the patient is cachetic. History/Risk Factors: Chronic hypoxic and hypercapnic respiratory failure and CAD with previous OK. Clinical Indicators: JONE, wheezing, increased cough with sputum. Labs: Total Protein 6.8 Albumin 4.2 Current BMI: 18.5 Eating 50-75% of meals Treatment: Nutritional supplements w/meals. Resp tx for advanced COPD. In your professional opinion, can you please clarify if these findings signify one of the following conditions? Mild Protein Malnutrition Mild Protein-Calorie Malnutrition Moderate Protein Malnutrition Moderate Protein-Calorie Malnutrition Severe Protein Malnutrition Severe Protein-Calorie Malnutrition Malnutrition following GI surgery Malnutrition Other condition, please specify Unable to determine Please document in your progress notes and discharge summary in order to capture severity of illness and risk of mortality. Include clinical findings that support your diagnosis. FYI: Press F11 to launch patient chart. Place X here if this finding has no clinical significance, is not applicable or if you are not able to provide any additional documentation. Thank You. [place]
[2016-08-29 15:16] VITALS: PULSE 84
--- NOTE | 2016-08-29 16:02 | P.PN ---
Subjective Principal diagnosis: Acute exacerbation of COPD 66-year-old female patient, cachectic, advanced oxygen-dependent COPD with chronic hypoxic respiratory failure and multiple has position the past for COPD exacerbation. The patient is still smoking approximately 5 cigarettes on a daily basis. The patient came in with increased cough, skeletal chest wall pain mainly over the anterior chest of the right, increased dyspnea, wheezing, chest congestion, bronchospasm. No chills. No fever. No nausea. No vomiting. No pleurisy. No hemoptysis. No swelling lower extremities. No orthopnea. Chest x-rays typical of COPD. She has been maintained on a combination of Advair and Spiriva on outpatient basis pH she also does have bitten about treatments around the clock. Patient has been in the hospital for almost every other month for the same. Main triggering factor for COPD exacerbation has been her smoking. On previous admissions, the patient required noninvasive positive pressure ventilation/BiPAP for respiratory support. She is an obvious catabolic state that she looks very much cachectic and weak and emaciated. Patient was reevaluated today on 08/29/2016, feeling much better, breathing a lot easier, patient would like to be discharged home. Patient has some wheezing on forced expiratory maneuver, but according to her she always wheezes. I suggested to the patient that she would probably improve more in the next 24 hours, but she is insisting on going home today. Patient tells me that she has made a significant improvement since admission. Chest x-ray showed no evidence of pneumonia labs including CBC and basic metabolic profile were noted to be normal. Hence I will clear the patient to be discharged home and follow up with Dr. Carrero in one week. Objective - Vital Signs Vital signs: Vital Signs Temp 98.1 F 08/29/16 14:24 Pulse 84 08/29/16 15:15 Resp 20 08/29/16 14:24 BP 152/77 08/29/16 14:24 Pulse Ox 97 08/29/16 14:24 Intake & Output 08/28/16 08/29/16 08/29/16 18:59 06:59 18:59 Intake Total 1340 840 Balance 1340 840 Weight 44.452 kg Intake: IV 800 Sodium Chloride 0.9% 1, 800 000 ml @ 100 mls/hr IV . Q10H [facility] Rx#:[id number] Oral 540 840 Other: Voiding Method Toilet Toilet Toilet # Voids 2 1 2 - Exam Physical Exam: Revealed a 66-year-old in no distress HEENT:[Neck is supple.] [No neck masses.] [No thyromegaly.] [No JVD.] Chest: [Diminished breath sound bilaterally, wheezing on forced expiratory maneuver was noted..] Cardiac Exam: [Normal S1 and S2, no S3 gallop, no murmur.] Abdomen: [Soft, nontender, no megaly, no rebound, no guarding, normal bowel sounds.] Extremities: [No clubbing, no edema, no cyanosis.] Neurological Exam: [No focal neurologic deficit.] - Labs CBC & Chem 7: 08/29/16 07:00 08/29/16 07:00 Labs: Abnormal Lab Results - Last 24 Hours (Table) 08/28/16 08/28/16 08/29/16 Range/Units 17:04 20:39 07:00 WBC 11.8 H (3.8-10.6) k/uL RDW 17.3 H (11.5-15.5) % Neutrophils # 11.2 H (1.3-7.7) k/uL Lymphocytes # 0.4 L (1.0-4.8) k/uL Chloride (98-107) mmol/L Carbon Dioxide (22-30) mmol/L Creatinine (0.52-1.04) mg/dL Glucose (74-99) mg/dL POC Glucose (mg/dL) 149 H 226 H (75-99) mg/dL 08/29/16 08/29/16 08/29/16 Range/Units 07:00 07:03 11:21 WBC (3.8-10.6) k/uL RDW (11.5-15.5) % Neutrophils # (1.3-7.7) k/uL Lymphocytes # (1.0-4.8) k/uL Chloride 108 H (98-107) mmol/L Carbon Dioxide 21 L (22-30) mmol/L Creatinine 0.45 L (0.52-1.04) mg/dL Glucose 163 H (74-99) mg/dL POC Glucose (mg/dL) 169 H 134 H (75-99) mg/dL Assessment and Plan Plan: 1 acute COPD exacerbation with secondary shortness of breath 2 muscular skeletal chest wall pain secondary to cough and 3 advanced, and end stage COPD with gold stage IV disease and chronic hypoxic history failure 4 nicotine addiction 5 malnourishment 6 hypertension 7 hyperlipidemia 8 coronary artery disease 9 very poor performance and functional status Recommendation: Patient seems to be doing much better since admission, agree with discharge planning, patient is to remain on her home O2, continue this prednisone burst and taper over the next 2 weeks, follow up with Dr. Carrero in one week. Time with Patient: Less than 30
--- NOTE | 2016-08-30 11:13 | ECHOF ---
Referral Reason:cp MEASUREMENTS -------- HEIGHT: 154.9 cm WEIGHT: 44.5 kg BP: 135/72 RVIDd: 2.6 cm (< 3.3) IVSd: 0.9 cm (0.6 - 1.1) LVIDd: 3.8 cm (3.9 - 5.3) LVPWd: 0.9 cm (0.6 - 1.1) IVSs: 1.5 cm LVIDs: 2.5 cm LVPWs: 1.5 cm Ao Diam: 2.8 cm (2.0 - 3.7) AV Cusp: 1.6 cm (1.5 - 2.6) LA Diam: 2.7 cm (2.7 - 3.8) MV EXCURSION: 16.356 mm (> 18.000) MV EF SLOPE: 134 mm/s (70 - 150) EPSS: 0.6 cm MV E Torsten: 0.69 m/s MV DecT: 195 ms MV A Torsten: 1.04 m/s MV E/A Ratio: 0.67 RAP: 5.00 mmHg RVSP: 24.86 mmHg FINDINGS -------- Sinus rhythm. This was a technically good study. Left ventricular wall thickness is normal. Overall left ventricular systolic function is normal with, an EF between 60 - 65 %. The right ventricle is normal in size and function. Normal LA size by volume 22+/-6 ml/m2. The right atrium is normal in size. Aortic valve is trileaflet and is mildly thickened. There is no evidence of aortic regurgitation. There is no evidence of aortic stenosis. The mitral valve leaflets are mildly thickened. There is trace to mild mitral regurgitation. Mild tricuspid regurgitation present. There is no evidence of pulmonary hypertension. The right ventricular systolic pressure, as measured by Doppler, is 24.86mmHg. The pulmonic valve was not well visualized. The aortic root size is normal. The pericardium is normal. There is no pericardial effusion. CONCLUSIONS -------- 1. Sinus rhythm. 2. The right ventricular systolic pressure, as measured by Doppler, is 24.86mmHg. 3. The pulmonic valve was not well visualized. 4. The aortic root size is normal. 5. There is no pericardial effusion. 6. This was a technically good study. 7. Overall left ventricular systolic function is normal with, an EF between 60 - 65 %. 8. Normal LA size by volume 22+/-6 ml/m2. 9. Aortic valve is trileaflet and is mildly thickened. 10. The mitral valve leaflets are mildly thickened. 11. There is trace to mild mitral regurgitation. 12. Mild tricuspid regurgitation present. 13. There is no evidence of pulmonary hypertension. DIRECTOR BROADCAST: Adilson Cross RDCS
--- NOTE | 2016-08-30 20:27 | DS ---
DATE OF ADMISSION: 08/27/2016 DATE OF DISCHARGE: 08/29/2016 FINAL DIAGNOSIS(ES): 1. Chronic obstructive pulmonary disease exacerbation with acute purulent tracheobronchitis. 2. Acute on chronic hypoxic hypercarbic respiratory failure present on admission. 3. Hypertension. 4. History of gastroesophageal reflux disease. 5. Hyperlipidemia. 6. Obstructive sleep apnea. Severe protein calory malnutrition DISCHARGE DISPOSITION: The patient will be discharged in a stable condition with guarded prognosis. Total time taken 35 minutes. HISTORY OF PRESENT ILLNESS: This 66-year-old woman with a past medical history of multiple medical problems being followed Dr. Cornejo in the outpatient setting admitted to the hospital with COPD exacerbation and purulent tracheobronchitis. The patient treated with bronchodilators and steroids. The patient improved significantly. Dr. Wood saw the patient and recommended the patient for discharge and outpatient follow-up. On exam, vital signs are stable. CARDIOVASCULAR: S1, S2 muffled. RESPIRATORY: A few scattered rhonchi. Expiratory wheezing also present. ABDOMEN: Soft, nontender. No mass palpable. The patient is keen on going home. DISCHARGE ADVICE AND MEDICATIONS: 1. Diet is cardiac. 2. Activity limited until follow-up. 3. Follow up with Dr. Cornejo in two to three days. 4. Follow-up with Dr. Wood and Dr. Back as advised. Medications will be as follows: 5. Albuterol HFA p.r.n. 6. Albuterol updrafts q.i.d. and p.r.n. 7. Norvasc 2.5 mg daily. 8. Lipitor 40 mg at bedtime. 9. Symbicort 160/4.5, 2 puffs b.i.d. 10. [place] 7.5 q.8h p.r.n. 11. Albuterol/Atrovent updrafts q.i.d. and p.r.n. 12. Levaquin 500 mg daily for 5 days. 13. Ativan 0.5 to 1 mg b.i.d. p.r.n. 14. Melatonin 3 mg q.h.s. 15. Medrol Dosepak as directed. Once again, the patient will be discharged in a stable condition with guarded prognosis. MTDD
== END 2016-08-29 19:05 | disposition home or self-care (01) | DRG 190 ==
LOC: EC 19:57 → 3SUR 22:41
PROVIDERS: ADMIT Internal Medicine; ATTEND Internal Medicine
DX: J44.0 Chronic obstructive pulmonary disease with (acute) lower respiratory infection (principal); J96.21 Acute and chronic respiratory failure with hypoxia; E43 Unspecified severe protein-calorie malnutrition; J96.22 Acute and chronic respiratory failure with hypercapnia; R64 Cachexia; Z68.1 Body mass index [BMI] 19.9 or less, adult; Z99.81 Dependence on supplemental oxygen; J20.9 Acute bronchitis, unspecified; J44.1 Chronic obstructive pulmonary disease with (acute) exacerbation; I10 Essential (primary) hypertension; K21.9 Gastro-esophageal reflux disease without esophagitis; E78.5 Hyperlipidemia, unspecified; G47.33 Obstructive sleep apnea (adult) (pediatric); F17.210 Nicotine dependence, cigarettes, uncomplicated; M19.91 Primary osteoarthritis, unspecified site; F41.9 Anxiety disorder, unspecified; H40.9 Unspecified glaucoma; I25.10 Atherosclerotic heart disease of native coronary artery without angina pectoris; I25.2 Old myocardial infarction; Z90.710 Acquired absence of both cervix and uterus; Z85.828 Personal history of other malignant neoplasm of skin; Z87.11 Personal history of peptic ulcer disease; Z79.51 Long term (current) use of inhaled steroids; Z79.899 Other long term (current) drug therapy; Z82.5 Family history of asthma and other chronic lower respiratory diseases
CPT/HCPCS: 36415; 71020; 80048; 80053; 82550; 82553; 83036; 83735; 83880; 84484; 85025; 85379; 85610; 85730; 93005; 93306; 94640; 94644; 96361; 96365; 96372; 96375; 99291

== ENCOUNTER 2016-09-05 18:38 | Inpatient (IN) | payer MEDICARE, OTHER ==
[2016-09-05] MEDS ORDERED: ALBUTEROL NEBULIZED 2.5 MG/3 ML INHALATION STA (18:40)
[2016-09-05] MEDS ORDERED: SODIUM CHLORIDE 0.9% 1,000 ML IV STA ×3 (18:40→18:53)
[2016-09-05] MEDS ORDERED: methylPREDNISolone SOD SUCCI 125 MG/2 ML VIAL IV STA (18:40)
[2016-09-05] MEDS ORDERED: IPRATROPIUM 0.5 MG/2.5 ML NEBU INHALATION STA (18:40)
[2016-09-05] MEDS ORDERED: LORazepam 2 MG/ML SYRINGE IV STA (18:40)
[2016-09-05] MEDS ORDERED: MORPHINE SULFATE 2 MG/ML SYRINGE IVP ONE (18:41)
[2016-09-05] MEDS ORDERED: LEVALBUTEROL NEB 1.25 MG/3 ML AMP INHALATION STA (18:46)
[2016-09-05] MEDS ORDERED: ENALAPRILAT 1.25 MG/ML 1 ML VIAL IVP STA (18:49)
--- NOTE | 2016-09-05 18:55 | ED ---
General Adult HPI - General Chief complaint: Shortness of Breath Stated complaint: SOB Time Seen by Provider: 09/05/16 18:40 Source: EMS, RN notes reviewed, old records reviewed Mode of arrival: EMS Limitations: no limitations - History of Present Illness Initial comments: This is a 66-year-old female ER for evaluation of shortness of breath, severe shortness of breath and agitation. Patient sever some COPD. Patient states her is breath began last night, was doing multiple breathing treatments, heart racing patient is coming in the ER per EMS. Patient's for strain secondary to clinical status, patient states patient's pulse ox was low upon arrival, placed on BiPAP and brought to emergency room. Patient is to remain to severe respiratory distress - Related Data Home Medications Medication Instructions Recorded Confirmed Albuterol Inhaler [Ventolin Hfa 1 - 2 puff INHALATION RT-Q4H PRN 09/30/15 Inhaler] Budesonide-Formot 160-4.5 Mcg 2 puff INHALATION RT-BID 10/12/15 08/28/16 [Symbicort 160-4.5 Mcg Inhaler] Atorvastatin Calcium [Lipitor] 40 mg PO HS 05/06/16 08/28/16 Melatonin 3 mg PO HS 05/06/16 08/28/16 HYDROcodone/APAP 7.5-325MG [[place] 1 tab PO Q8H PRN 06/12/16 08/28/16 7.5-325] amLODIPine [Norvasc] 2.5 mg PO DAILY 07/09/16 08/28/16 LORazepam [Ativan] 0.5 - 1 mg PO BID PRN 08/28/16 08/28/16 Previous Rx's Medication Instructions Recorded Albuterol Nebulized [Ventolin 2.5 mg INHALATION RT-QID #0 06/13/16 Nebulized] Ipratropium Nebulized [Atrovent 0.5 mg INHALATION RT-QID #0 06/13/16 Nebulized] Levofloxacin [Levaquin] 500 mg PO DAILY #5 tab 08/29/16 methylPREDNISolone Dose Pack 4 mg PO DIRECTED #21 package 08/29/16 [Medrol Dose Pack] Allergies Allergy/AdvReac Type Severity Reaction Status Date / Time pneumococcal vaccine Allergy Unknown Unknown Verified 08/28/16 08:33 Influenza Virus Vaccines Allergy Unknown Verified 08/28/16 08:33 Review of Systems ROS Statement: Those systems with pertinent positive or pertinent negative responses have been documented in the HPI. ROS Other: All systems not noted in ROS Statement are negative. 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 Last Myocardial Infarction Date:: 2011? History of Any Multi-Drug Resistant Organisms: None Reported Past Surgical History: Appendectomy, Back Surgery, Bowel Resection, Section, Hysterectomy, Orthopedic Surgery Additional Past Surgical History / Comment(s): 10/28/15 anterior cervical decompression fusion C3-4,C4-5,C5-6 with NIM cord monitoring, BACK SURGERY lami / FUSION/discectomy, manolo CATARACT SURGERY, LASER EYE SURGERY FOR GLAUCOMA., RIGHT KNEE SURGERY(fx kneecap). Neck surgery, has bars and screws in the neck Past Anesthesia/Blood Transfusion Reactions: No Reported Reaction Past Psychological History: Anxiety Additional Psychological History / Comment(s): Pt has a son and laurie-in-law that reside with her. She uses a wheeled walker to ambulate. She does not drive-[place] [facility] [employer]. She has O2 at 4L/NC ATC. She has a nebulizer. Smoking Status: Current every day smoker Past Alcohol Use History: Occasional Additional Past Alcohol Use History / Comment(s): Has been SMOKING FOR 59 YEARS.SMOKING SINCE 7 YEARS OLD, USED TO SMOKE 3 PPD. SMOKES 4 CIGARRETTES A DAY Past Drug Use History: None Reported Additional Drug Use History / Comment(s): TAKES HER PRESCRIBED NORCO. - Past Family History Mother Family Medical History: Myocardial Infarction (SD) Additional Family Medical History / Comment(s): Mother had a SD in her 50's Father Family Medical History: No Reported History Additional Family Medical History / Comment(s): FORM OLD AGE Brother(s) Family Medical History: Asthma, COPD Sister(s) Family Medical History: Asthma, COPD General Exam Limitations: no limitations General appearance: alert, in no apparent distress, anxious, cachectic Head exam: Present: atraumatic, normocephalic, normal inspection Eye exam: Present: normal appearance, PERRL, EOMI. Absent: scleral icterus, conjunctival injection, periorbital swelling ENT exam: Present: normal exam, mucous membranes moist Neck exam: Present: normal inspection. Absent: tenderness, meningismus, lymphadenopathy Respiratory exam: Present: respiratory distress, wheezes, accessory muscle use, decreased breath sounds, prolonged expiratory. Absent: rales, rhonchi, stridor Cardiovascular Exam: Present: normal rhythm, tachycardia, normal heart sounds. Absent: systolic murmur, diastolic murmur, rubs, gallop, clicks GI/Abdominal exam: Present: soft, normal bowel sounds. Absent: distended, tenderness, guarding, rebound, rigid Extremities exam: Present: normal inspection, full ROM, normal capillary refill. Absent: tenderness, pedal edema, joint swelling, calf tenderness Back exam: Present: normal inspection Neurological exam: Present: alert, oriented X3, CN II-XII intact Psychiatric exam: Present: normal affect, normal mood Skin exam: Present: warm, dry, intact, normal color. Absent: rash Course Vital Signs 09/05/16 09/05/16 09/05/16 18:39 18:48 18:53 Temperature 97.4 F L Pulse Rate 160 H 153 H 151 H Respiratory 36 H Rate Blood Pressure 198/105 O2 Sat by Pulse 99 Oximetry - Reevaluation(s) Reevaluation #1: 09/05/16 18:54 Patient with minimal improvement with symptom control, IV hydration EKG Findings - EKG Comments: EKG Findings:: EKG shows sinus tachycardia rate 134, TX 128, QRS 70, QTC 438 Medical Decision Making - Medical Decision Making 66 female here with severe COPD exacerbation, respiratory failure, hypoxic hypercapnic, patient will be admitted on BiPAP to continue breathing treatments. - Radiology Data Radiology results: report reviewed (Chest x-ray is negative for acute disease), image reviewed Critical Care Time Critical Care Time: Yes Total Critical Care Time: 31 Disposition Clinical Impression: COPD exacerbation, Adult respiratory distress syndrome, Acute exacerbation of chronic obstructive airways disease, Acute respiratory failure, Hypoxia Disposition: ADMITTED IP TO THIS [facility] Condition: Serious Referrals: Kristina Cornejo MD [Primary Care Provider] - 1-2 days
[2016-09-05 19:02] LABS: Anisocytosis Slight; Basophils # (A) 0.1 k/uL (0-0.2); Basophils % (A) 1 %; CH 29.2; CHCM 31.2; Eosinophils # (A) 0.3 k/uL (0-0.7); Eosinophils % (A) 1 %; HCT 45.2 % (34.0-46.0); HDW 2.17; HGB 14.3 gm/dL (11.4-16.0); Luc # (Auto) 0.35; Luc % (Auto) 2; Lymphocytes # (A) 7.1 k/uL (1.0-4.8); Lymphocytes % (A) 30 %; MCH 29.8 pg (25.0-35.0); MCHC 31.7 g/dL (31.0-37.0); MCV 94.1 fL (80.0-100.0); Monocytes # (A) 1.2 k/uL (0-1.0); Monocytes % (A) 5 %; Neutrophils # (A) 14.6 k/uL (1.3-7.7); Neutrophils % (A) 62 %; RBC 4.81 m/uL (3.80-5.40); RDW 17.6 % (11.5-15.5); WBC 23.7 k/uL (3.8-10.6); WBC (Perox) 22.39
[2016-09-05] MEDS: SODIUM CHLORIDE 0.9% 1,000 ML IV SCH (19:02)
--- NOTE | 2016-09-05 19:03 | XR ---
EXAMINATION TYPE: XR chest 1V portable DATE OF EXAM: 09/05/2016 6:47 PM COMPARISON: 08/27/2016 HISTORY: Short of breath TECHNIQUE: Single frontal view of the chest is obtained. FINDINGS: There is no heart failure nor confluent pneumonic infiltrate. There is linear density at t he left pulmonary hilum. There are chest leads. There is pulmonary hyperinflation. There is a 5 mm ca lcified granuloma at the right mid lung field IMPRESSION: COPD. Pulmonary fibrotic changes. Chronic linear density at the left pulmonary hilum wit hout change compared to last exam consistent with scarring.
[2016-09-05 19:09] LABS: Calcium 9.5 mg/dL (8.4-10.2); Magnesium 2.2 mg/dL (1.6-2.3); Potassium 4.7 mmol/L (3.5-5.1); Total Bilirubin 0.6 mg/dL (0.2-1.3); Total Protein 7.5 g/dL (6.3-8.2)
[2016-09-05 19:11] LABS: INR 0.9 (<1.1); Prothrombin Time 9.6 sec (9.0-12.0)
[2016-09-05 19:22] LABS: Creatine Kinase 54 U/L (30-135)
[2016-09-05 19:34] LABS: Creatine Kinase MB 1.7 ng/mL (0.0-2.4); Troponin I <0.012 ng/mL (0.000-0.034)
[2016-09-05 19:50] LABS: Partial Thromboplastin Time 20.5 sec (22.0-30.0)
[2016-09-05 19:56] LABS: Manual Review Performed
[2016-09-05] MEDS ORDERED: IPRATROPIUM-ALBUTEROL 3 ML NEB INHALATION SCH (20:00)
[2016-09-05 20:17] LABS: Glucose,Whole Blood 134 mg/dL (75-99)
[2016-09-05] MEDS: NICOTINE 14MG/24HR PATCH TRANSDERM SCH (20:57)
[2016-09-05] MEDS ORDERED: LORazepam 2 MG/ML SYRINGE IV PRN (21:22)
[2016-09-05] MEDS ORDERED: MELATONIN 3 MG TABLET PO PRN (21:23)
[2016-09-05] MEDS ORDERED: HYDROcodone/APAP 7.5-325MG 1 EACH TAB PO PRN (21:23)
[2016-09-05] MEDS ORDERED: NALOXONE 0.4 MG/ML 1 ML VIAL IV PRN (21:24)
[2016-09-05 21:42] LABS: Appearance,Urine Clear (Clear); Bilirubin,Urine Negative (Negative); Glucose,Urine (UA) Negative (Negative); Ketones,Urine Negative (Negative); Leukocyte Esterase,Urine Negative (Negative); Nitrite,Urine Negative (Negative); Particle Count 2140; Protein,Urine 1+ (Negative); RBC,Urine <1 /hpf (0-5); Specific Gravity,Urine 1.014 (1.001-1.035); UA Billing (MACRO vs. MICRO) MICRO; Urobilinogen,Urine <2.0 mg/dL (<2.0); WBC,Urine 1 /hpf (0-5)
[2016-09-05] MEDS ORDERED: LEVOFLOXACIN 500MG-D5W PMX 500 MG in DEXTROSE/WATER 1 100ML.BAG IVPB SCH (22:00)
[2016-09-05] MEDS: methylPREDNISolone SOD SUCCI 125 MG/2 ML VIAL IV SCH (23:26)
[2016-09-06] MEDS: ALBUTEROL NEBULIZED 2.5 MG/3 ML INHALATION PRN ×3 (01:17→14:14)
[2016-09-06] MEDS: LORazepam 2 MG/ML SYRINGE IV PRN ×3 (01:33→20:10)
[2016-09-06 04:34] LABS: Anisocytosis Slight; Basophils % (A) 0 %; CHCM 30.2; Eosinophils % (A) 0 %; HDW 2.13; HGB 11.7 gm/dL (11.4-16.0); Hypochromasia Moderate; Luc # (Auto) 0.03; Luc % (Auto) 0; Lymphocytes # (A) 0.5 k/uL (1.0-4.8); Lymphocytes % (A) 5 %; MCH 29.1 pg (25.0-35.0); MCHC 30.1 g/dL (31.0-37.0); MCV 96.6 fL (80.0-100.0); Mean Platelet Volume 6.9; Monocytes # (A) 0.1 k/uL (0-1.0); Monocytes % (A) 1 %; Neutrophils # (A) 8.1 k/uL (1.3-7.7); Neutrophils % (A) 93 %; RBC 4.03 m/uL (3.80-5.40); RDW 17.4 % (11.5-15.5); WBC 8.7 k/uL (3.8-10.6)
[2016-09-06 04:47] LABS: Anion Gap 6 mmol/L; Blood Urea Nitrogen 21 mg/dL (7-17); Calcium 8.4 mg/dL (8.4-10.2); Carbon Dioxide 26 mmol/L (22-30); Chloride 106 mmol/L (98-107); Glucose 151 mg/dL (74-99); Magnesium 2.1 mg/dL (1.6-2.3); Non-African American GFR(MDRD) >60 (>60 ml/min/1.73 sqM); Phosphorous 3.3 mg/dL (2.5-4.5); Potassium 5.6 mmol/L (3.5-5.1); Sodium 138 mmol/L (137-145)
[2016-09-06] MEDS: methylPREDNISolone SOD SUCCI 125 MG/2 ML VIAL IV SCH ×4 (05:55→23:03)
[2016-09-06] MEDS: SODIUM CHLORIDE 0.9% 1,000 ML IV SCH ×2 (05:55→14:11)
[2016-09-06] MEDS: IPRATROPIUM-ALBUTEROL 3 ML NEB INHALATION SCH ×5 (07:37→23:18)
[2016-09-06] MEDS: ENOXAPARIN 40 MG/0.4 ML SYRINGE SQ SCH (07:37)
[2016-09-06] MEDS: amLODIPine 2.5 MG TAB PO SCH (07:37)
--- NOTE | 2016-09-06 07:51 | XR ---
EXAMINATION TYPE: XR chest 1V DATE OF EXAM: 09/06/2016 HISTORY: SOB/COPD exac.. REFERENCE: Previous study dated 09/05/2016. FINDINGS: There has been a previous ACDF in the lower cervical spine. The lungs are overinflated. There is chronic interstitial change. There is a solitary right-sided pul monary nodule. This is stable as far back as 01/16/2016. The heart is not enlarged. IMPRESSION: 1. COPD. 2. CHANGES OF PULMONARY FIBROSIS. 3. STABLE, SOLITARY PULMONARY NODULE.
[2016-09-06] MEDS ORDERED: SYMBICORT 160-4.5 MCG INHALER INHALATION SCH ×2 (08:00)
[2016-09-06] MEDS ORDERED: amLODIPine 2.5 MG TAB PO SCH (09:00)
[2016-09-06] MEDS ORDERED: PANTOPRAZOLE 40 MG/10 ML VIAL IV SCH (09:00)
--- NOTE | 2016-09-06 11:35 | CONS ---
DATE OF CONSULTATION: Monica Martinez a 66-year-old female admitted to the emergency room with shortness of breath. The patient apparently had not been feeling well for a couple days prior to admission. Well known to our service. She has multiple admissions to the hospital seemingly only every month or so with a COPD exacerbations. She also apparently came to the hospital because of racing heart beat. The patient is feeling better. Was initially admitted on BiPAP therapy with high FiO2. Has now been weaned down to O2 at 5 L. Is getting an IV of 0.9 at 100 mL an hour. Unfortunately she continues to smoke which is why she has these frequent COPD exacerbations. Her typical complaints include shortness breath, chest tightness, wheezing, and cough. Her home medications include albuterol inhaler, Symbicort inhaler, Lipitor, melatonin, [place], amlodipine and Ativan. Other medications include Medrol Dosepak, Levaquin and updrafts. She should also be on a small dose of prednisone on a daily basis. I do not see it listed here. Allergies include the INFLUENZA PNEUMOCOCCAL VACCINES. Other medical history other than COPD includes a history of hyperlipidemia, acid reflux disease, DJD, previous episodes of pneumonia, sleep apnea syndrome, myocardial infarction, hypertension, glaucoma, skin cancer, and previous right patellar fracture with surgery. Other surgical history includes appendectomy, back surgery, a bowel resection, , hysterectomy, and some orthopedic procedures. Social history is positive for ongoing tobacco use. Denies alcohol or any significant alcohol. No illicit drug use. Has been smoking since the age of 7 years of age. Family history is positive for myocardial infarction and COPD. REVIEW OF SYSTEMS: Not reliable. The patient is not a good historian but the most I can get was shortness of breath, cough, wheezing. It has been going on for a couple days prior to admission. She denies other complaints. Current vital signs are reviewed that include a temperature 98.3, heart rate 100, respiratory rate 26, blood pressure 119/82 and saturations 99% on 5 L nasal cannula. Appears in no acute distress. She is mildly tachypneic and dyspneic. Mildly tachycardic. HEENT examination is grossly unremarkable. She has got moist mucous membranes. She is edentulous. NECK: Supple. Full range of motion. No adenopathy or thyromegaly. Cardiovascular examination reveals regular rhythm and rate. S1, S2 normal. Tachycardic. Lungs reveal inspiratory and expiratory wheezes and rhonchi. Breath sounds diminished. There is prolongation. ABDOMEN: Soft. Bowel sounds are heard. Extremities are intact. No cyanosis, clubbing or edema. Labs are reviewed. White count 8.7, hemoglobin. hematocrit, platelet count normal. Sodium 138, potassium 5.6, chloride 106, CO2 of 26. BUN and creatinine 21 and 0.76. N-terminal proBNP 91. Cardiac enzymes negative. UA was negative. 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 Microbiology is all negative. Medications are reviewed. She is on, DuoNeb q.i.d. and p.r.n. She is also on Pulmicort and Perforomist twice a day. The patient is also on Solu-Medrol 60 mg q.6 and Levaquin as an antibiotic. The rest of medications appear to be normal. ASSESSMENT: 1. Chronic obstructive pulmonary disease exacerbation in a patient with numerous chronic obstructive pulmonary disease exacerbations and ongoing tobacco use. She has got Gold stage IV chronic obstructive pulmonary disease. She is oxygen dependent. Should be steroid dependent. Again continues to smoke and sabotage her medical situation. 2. Multiple medical problems and comorbidities as listed above including but not limited to gastroesophageal reflux disease, myocardial infarction, hypertension, degenerative joint disease, pneumonia, sleep apnea, and multiple orthopedic issues. PLAN: The patient's medications have been adjusted accordingly. Will continue to follow. I will leave her here in the unit another half a day or a day. Will continue to follow closely. Prognosis is guarded. No additional recommendations are made. Will make sure we get a nicotine patch on her.
[2016-09-06] MEDS: HYDROcodone/APAP 7.5-325MG 1 EACH TAB PO PRN (15:41)
--- NOTE | 2016-09-06 19:13 | HP ---
DATE OF ADMISSION: 09/05/2016 Patient is a 66-year-old with advanced chronic obstructive pulmonary disease and uses about 3 to 4 liters of oxygen at home. Thin built cachectic female who came in with complaints of severe shortness of breath, wheezing, and patient is presently on BiPAP, and patient has severe advance COPD and continues to smoke. Denied any fever, chills. Denied any abdominal pain, nausea, vomiting. Chest x-ray did not show any pneumonic process. Patient was started on levofloxacin and patient is in ICU at this point of time. REVIEW OF SYSTEMS: REVIEW OF SYSTEMS: CONSTITUTIONAL: No fever, no malaise, no fatigue. HEENT: No recent visual problems or hearing problems. Denied any sore throat. CARDIOVASCULAR: No chest pain, orthopnea, PND, no palpitations, no syncope. PULMONARY: as described in HPI. GASTROINTESTINAL: No diarrhea, no nausea, no vomiting, no abdominal pain. Normoactive bowel sounds. NEUROLOGICAL: No headaches, no weakness, no numbness. HEMATOLOGICAL: Denies any bleeding or petechiae. GENITOURINARY: Denies any burning micturition, frequency, or urgency. MUSCULOSKELETAL/RHEUMATOLOGICAL: Denies any joint pain, swelling, or any muscle pain. ENDOCRINE: Denies any polyuria or polydipsia. The rest of the 14 point review of systems is negative. Although patient is not any good historian because of the BiPAP. Home medications include: 1. Albuterol. 2. Budesonide. 3. Formoterol. 4. Atorvastatin. 5. Melatonin. 6. Hydrocodone acetaminophen. 7. Amlodipine. 8. Lorazepam. 9. Levofloxacin. 10. Medrol Dosepak. ALLERGIES: PNEUMOCOCCAL VACCINE AND INFLUENZA VACCINE. PAST MEDICAL HISTORY: Advanced COPD, Gastroesophageal reflux disease, hyperlipidemia, hypertension, myocardial infarction, coronary artery disease, sleep apnea, appendectomy, back surgery. Bowel resection, section, hysterectomy and orthopedic surgery. SOCIAL HISTORY: Patient continues to smoke about 3 to 4 cigarettes a day and denied any alcohol abuse or any drug abuse. FAMILY HISTORY: Mother had myocardial infarction and father of old age. Brother had asthma and chronic obstructive pulmonary disease and sister had COPD. PHYSICAL EXAMINATION: VITAL SIGNS: Temperature is a 98.2, pulse 112, respiratory rate of 25. Blood pressure is 130/79, saturating at 99% on BiPAP. GENERAL: Patient is alert and oriented x3. Is on BiPAP, thin built, is in mild respiratory distress in spite of BiPAP. HEENT: Pupils are round and equally reacting to light. EOMI. No scleral icterus. No conjunctival pallor. Normocephalic, atraumatic. No pharyngeal erythema. No thyromegaly. CARDIOVASCULAR: S1 and S2 present. No murmurs, rubs, or gallops. PULMONARY: Significant expiratory wheezing and significantly limited air entry into bilateral lung reynolds. No crackles were appreciated. ABDOMEN: Soft, nontender, nondistended, normoactive bowel sounds. No palpable organomegaly. MUSCULOSKELETAL: No joint swelling or deformity. EXTREMITIES: No cyanosis, clubbing, or pedal edema. NEUROLOGICAL: Gross neurological examination did not reveal any focal deficits. SKIN: No rashes. LABORATORY DATA: CBC, CMP are abnormal for elevated WBC count which has come down which is secondary to severe tracheobronchitis and potassium is elevated secondary to Enalapril she received in ER. ASSESSMENT AND PLAN: 1. Acute on chronic hypercapnic respiratory failure secondary to chronic obstructive pulmonary disease exacerbation. Patient is requiring BiPAP at this point of time, which will be tapered down and patient will be continued on antibiotics, inhalational treatments. 2. Hypertension. 3. Hyperkalemia secondary to Enalapril she received. The patient also I will consider has acute renal failure, although her creatinine is 0.76. Patient body mass, BMI is very low and patient is only 41 kg. 4. Gastroesophageal reflux disease. 5. Hyperlipidemia. 6. Sleep apnea. Extensive counseling regarding continued nicotine use was provided. Patient will be continued on respiratory support as mentioned earlier taper down respiratory support. The rest of her home medications will be continued. Patient is on systemic steroid inhalation treatments. Patient remains in ICU.
[2016-09-06] MEDS: FORMOTEROL FUMARATE 20 MCG/2 ML NEBU INHALATION SCH (19:49)
[2016-09-06] MEDS: BUDESONIDE 1 MG/2 ML NEBU INHALATION SCH (19:49)
[2016-09-06] MEDS: ATORVASTATIN 40 MG TAB PO SCH (20:10)
[2016-09-06] MEDS: MELATONIN 3 MG TABLET PO SCH (20:11)
[2016-09-06] MEDS: NICOTINE 14MG/24HR PATCH TRANSDERM SCH (20:17)
[2016-09-06] MEDS: LEVOFLOXACIN 500MG-D5W PMX 500 MG in DEXTROSE/WATER 1 100ML.BAG IVPB SCH (20:18)
[2016-09-06] MEDS ORDERED: ATORVASTATIN 40 MG TAB PO SCH (21:00)
[2016-09-07] MEDS: IPRATROPIUM-ALBUTEROL 3 ML NEB INHALATION SCH ×6 (03:34→23:24)
[2016-09-07 04:17] LABS: Anisocytosis Slight; Basophils % (A) 0 %; CH 28.9; CHCM 30.4; Eosinophils % (A) 0 %; HCT 38.5 % (34.0-46.0); HDW 2.14; Hypochromasia Slight; Luc # (Auto) 0.05; Luc % (Auto) 0; Lymphocytes # (A) 0.7 k/uL (1.0-4.8); Lymphocytes % (A) 6 %; MCH 29.8 pg (25.0-35.0); MCHC 31.3 g/dL (31.0-37.0); MCV 95.4 fL (80.0-100.0); Mean Platelet Volume 7.3; Monocytes # (A) 0.3 k/uL (0-1.0); Monocytes % (A) 2 %; Neutrophils # (A) 11.5 k/uL (1.3-7.7); Neutrophils % (A) 91 %; RBC 4.03 m/uL (3.80-5.40); RDW 17.2 % (11.5-15.5); WBC 12.6 k/uL (3.8-10.6); WBC (Perox) 11.92
[2016-09-07 04:31] LABS: Anion Gap 4 mmol/L; Blood Urea Nitrogen 16 mg/dL (7-17); Calcium 9.1 mg/dL (8.4-10.2); Carbon Dioxide 31 mmol/L (22-30); Chloride 103 mmol/L (98-107); Glucose 140 mg/dL (74-99); Magnesium 2.1 mg/dL (1.6-2.3); Non-African American GFR(MDRD) >60 (>60 ml/min/1.73 sqM); Phosphorous 3.5 mg/dL (2.5-4.5); Sodium 138 mmol/L (137-145)
[2016-09-07] MEDS: LORazepam 2 MG/ML SYRINGE IV PRN ×3 (05:09→20:26)
[2016-09-07] MEDS: methylPREDNISolone SOD SUCCI 125 MG/2 ML VIAL IV SCH ×3 (05:09→18:15)
[2016-09-07] MEDS: SODIUM CHLORIDE 0.9% 1,000 ML IV SCH ×3 (05:09→10:14)
[2016-09-07] MEDS: ALBUTEROL NEBULIZED 2.5 MG/3 ML INHALATION PRN (05:19)
[2016-09-07] MEDS: BUDESONIDE 1 MG/2 ML NEBU INHALATION SCH ×2 (07:51→19:53)
[2016-09-07] MEDS: FORMOTEROL FUMARATE 20 MCG/2 ML NEBU INHALATION SCH ×2 (07:51→19:53)
[2016-09-07] MEDS: PANTOPRAZOLE 40 MG TABLET PO SCH (08:10)
[2016-09-07] MEDS: amLODIPine 2.5 MG TAB PO SCH (08:20)
[2016-09-07] MEDS: ENOXAPARIN 40 MG/0.4 ML SYRINGE SQ SCH (08:20)
--- NOTE | 2016-09-07 09:02 | XR ---
EXAMINATION TYPE: XR chest 1V DATE OF EXAM: 09/07/2016 COMPARISON: Multiple priors including 09/06/2016, 03/25/2014, 05/18/2015, 06/12/2016 INDICATION: Short of breath COPD TECHNIQUE: Single frontal view of the chest is obtained. FINDINGS: The heart size is normal. The pulmonary vasculature is normal. Small granuloma is likely within the right midlung. This appears new from 06/12/2016. Underlying neopl asm is not excluded. IMPRESSION: 1. No acute pulmonary process. 2. Developing nodule which appears stable from June 2016 right midlung. Close monitoring is recommen ded. Follow-up exam in 3 months is recommended.
--- NOTE | 2016-09-07 10:05 | P.PN ---
Subjective Principal diagnosis: Acute exacerbation of severe end-stage chronic obstructive pulmonary disease This is a very pleasant 66-year-old female patient who follows with Dr. Cornejo as her primary care physician. She has a history of hyperlipidemia, degenerative joint disease, acid reflux disease, sleep apnea syndrome, myocardial infarction , hypertension, skin cancer, glaucoma. She also has a history of severe end- stage oxygen-dependent chronic obstructive pulmonary disease. Her last FEV1 value is apparently 21% of predicted. Unfortunately the patient does continue to smoke. Here on 09/05/2016 with increasing shortness of breath cough and congestion. She was initially placed on BiPAP to maintain O2 saturations in the 90 and she is seen here again today in follow-up in the intensive care unit. Currently awake and alert. She did have an episode of anxiety with tachypnea and tachycardia last evening. She has been treated with Ativan every 6 hours. She is quite wheezy and bronchospastic yet this morning. She is maintaining O2 saturations in the low 90s on 5 L/m per nasal cannula while off the BiPAP. His chest x-ray shows evidence of chronic obstructive pulmonary disease with no acute pulmonary process. Blood and urine cultures reveal no growth. There is mild leukocytosis at 12.6. He spent afebrile. She has been afebrile. Objective - Vital Signs Vital signs: Vital Signs Temp 97.2 F L 09/07/16 08:00 Pulse 104 H 09/07/16 09:00 Resp 24 09/07/16 09:00 BP 118/81 09/07/16 09:00 Pulse Ox 100 09/07/16 09:00 Intake & Output 09/06/16 09/07/16 09/07/16 18:59 06:59 18:59 Intake Total 1200 1400 300 Output Total 825 700 Balance 375 700 300 Weight 41 kg 42.8 kg Intake: IV 1200 1200 300 Sodium Chloride 0.9% 1, 1200 1200 300 000 ml @ 100 mls/hr IV . Q10H LAURA Rx#:[id number] Oral 200 Output: Urine 825 700 Other: Voiding Method Bedside Commode Bedside Commode Bedside Commode # Voids 1 # Bowel Movements 1 - Exam GENERAL EXAM: Frail, cachectic. Alert, fairly comfortable in slight distress. HEAD: Normocephalic. EYES: Normal reaction of pupils, equal size. NOSE: Clear with pink turbinates. THROAT: No erythema or exudates. NECK: No masses, no JVD. CHEST: No chest wall deformity. LUNGS: Equal air entry with bilateral wheeze. Diminished throughout. CVS: S1 and S2 normal with no audible murmurs, regular rhythm. ABDOMEN: No hepatosplenomegaly, normal bowel sounds, no guarding or rigidity. SPINE: No scoliosis or deformity SKIN: No rashes CENTRAL NERVOUS SYSTEM: No focal deficits, tone is normal in all 4 extremities. Extremities: There is no significant peripheral edema. No clubbing, no cyanosis. Peripheral pulses are intact. - Labs CBC & Chem 7: 09/07/16 04:02 09/07/16 04:02 Labs: Abnormal Lab Results - Last 24 Hours (Table) 09/07/16 09/07/16 Range/Units 04:02 04:02 WBC 12.6 H (3.8-10.6) k/uL RDW 17.2 H (11.5-15.5) % Neutrophils # 11.5 H (1.3-7.7) k/uL Lymphocytes # 0.7 L (1.0-4.8) k/uL Carbon Dioxide 31 H (22-30) mmol/L Glucose 140 H (74-99) mg/dL Microbiology - Last 24 Hours (Table) 09/05/16 18:42 Blood Culture - Preliminary Blood No Growth after 24 hours 09/05/16 21:30 Urine Culture - Preliminary Urine,Catheterized Assessment and Plan Plan: Impression: #1 Acute exacerbation of severe end-stage oxygen-dependent chronic obstructive pulmonary disease. #2 Acute on chronic hypoxic respiratory failure secondary to above. #3 Chronic and ongoing tobacco dependence. #4 Gastroesophageal reflux disease. #5 History of myocardial infarction. #6 Hypertension. #7 Degenerative joint disease. #8 History of sleep apnea. #9 Poor overall functional performance secondary to the above-mentioned multiple comorbidities. Plan: The patient was seen and evaluated by Dr. Carrero. Her chest x-ray and labs were reviewed. We'll continue to utilize the BiPAP during the evenings and throughout the day as needed. She may be able to transfer out of the intensive care unit later today. We'll decrease her IV to 0.9 normal saline at 75 mL per hour. We'll also increase her Ativan frequency 1 mg every [address] Carrero did have a long discussion with the patient who is in agreement's to not having any heroic measures including CPR or intubation and mechanical ventilatory support. She'll be made a DO NOT RESUSCITATE/DO NOT INTUBATE. Overall prognosis remains quite poor. The patient is again educated regarding the importance of complete smoking cessation was counseled from 3-10 minutes. We' ll continue to follow make further recommendations based on her clinical status. Time with Patient: Greater than 30
--- NOTE | 2016-09-07 19:57 | PN ---
Patient remains on BiPAP. Patient has extremely poor prognosis, because of which hospice is being contemplated at this time. REVIEW OF SYSTEMS: Unable to obtain due to her being on BiPAP. Medications were reviewed. PHYSICAL EXAMINATION: VITAL SIGNS: Temperature 97.2, pulse 117, respiratory rate 28. Blood pressure is 141/72. Saturating at 99% on BiPAP. Please refer to Pulmonology's dictation for settings of BiPAP. GENERAL: Patient is sleepy, drowsy, oriented x2 to 3. She is in mild respiratory distress. HEENT: Pupils are round and equally reacting to light. EOMI. No scleral icterus. No conjunctival pallor. Normocephalic, atraumatic. No pharyngeal erythema. No thyromegaly. CARDIOVASCULAR: S1 and S2 present. No murmurs, rubs, or gallops. PULMONARY: Significantly limited air entry to bilateral lung reynolds. No crackles were appreciated. ABDOMEN: Soft, nontender, nondistended, normoactive bowel sounds. No palpable organomegaly. MUSCULOSKELETAL: No joint swelling or deformity. EXTREMITIES: No cyanosis, clubbing, or pedal edema. NEUROLOGICAL: Does not appear to have any focal deficits at this time. SKIN: No rashes. LABORATORY DATA: WBC count is 12,600. ASSESSMENT AND PLAN: 1. Acute on chronic hypercapnic respiratory failure secondary to chronic obstructive pulmonary disease exacerbation. Continue with BiPAP support. Due to extremely poor prognosis, hospice is being contemplated at this point of time. At present patient's code status is DO NOT RESUSCITATE. 2. Hypertension. 3. Hyperkalemia due to enalapril, which is improving. 4. Gastroesophageal reflux disease. 5. Hyperlipidemia. 6. Sleep apnea. PLAN: Continue with present medications. Continue with antibiotics, systemic steroids, inhalational treatments, respiratory support with BiPAP. Wean as tolerated. Patient is definitely appropriate for hospice because of the advanced nature of her COPD, multiple hospitalizations, extremely poor quality of life and very low Karnofsky score.
[2016-09-07] MEDS: NICOTINE 14MG/24HR PATCH TRANSDERM SCH (20:26)
[2016-09-07] MEDS: LEVOFLOXACIN 500MG-D5W PMX 500 MG in DEXTROSE/WATER 1 100ML.BAG IVPB SCH (20:26)
[2016-09-07] MEDS: MELATONIN 3 MG TABLET PO SCH (20:26)
[2016-09-07] MEDS: ATORVASTATIN 40 MG TAB PO SCH (20:26)
[2016-09-08] MEDS: HYDROcodone/APAP 7.5-325MG 1 EACH TAB PO PRN ×4 (00:01→23:44)
[2016-09-08] MEDS: LORazepam 2 MG/ML SYRINGE IV PRN ×6 (00:01→23:53)
[2016-09-08] MEDS: SODIUM CHLORIDE 0.9% 1,000 ML IV SCH ×2 (00:01→11:44)
[2016-09-08] MEDS: IPRATROPIUM-ALBUTEROL 3 ML NEB INHALATION SCH ×5 (03:41→19:56)
[2016-09-08] MEDS: PANTOPRAZOLE 40 MG TABLET PO SCH (06:38)
[2016-09-08] MEDS: methylPREDNISolone SOD SUCCI 125 MG/2 ML VIAL IV SCH ×4 (06:38→17:25)
[2016-09-08] MEDS: FORMOTEROL FUMARATE 20 MCG/2 ML NEBU INHALATION SCH ×2 (07:11→19:56)
[2016-09-08] MEDS: BUDESONIDE 1 MG/2 ML NEBU INHALATION SCH ×2 (07:11→19:56)
[2016-09-08 07:21] LABS: Anion Gap 7 mmol/L; Blood Urea Nitrogen 14 mg/dL (7-17); Calcium 8.8 mg/dL (8.4-10.2); Carbon Dioxide 28 mmol/L (22-30); Chloride 101 mmol/L (98-107); Glucose 131 mg/dL (74-99); Non-African American GFR(MDRD) >60 (>60 ml/min/1.73 sqM); Phosphorous 3.7 mg/dL (2.5-4.5); Potassium 4.3 mmol/L (3.5-5.1); Sodium 136 mmol/L (137-145)
[2016-09-08 07:25] LABS: Anisocytosis Slight; Basophils % (A) 0 %; CH 29.1; Eosinophils % (A) 0 %; HCT 35.3 % (34.0-46.0); HDW 2.21; HGB 11.2 gm/dL (11.4-16.0); Luc # (Auto) 0.03; Luc % (Auto) 0; Lymphocytes # (A) 0.4 k/uL (1.0-4.8); Lymphocytes % (A) 5 %; MCHC 31.8 g/dL (31.0-37.0); MCV 94.2 fL (80.0-100.0); Mean Platelet Volume 7.5; Monocytes # (A) 0.2 k/uL (0-1.0); Monocytes % (A) 2 %; Neutrophils # (A) 8.8 k/uL (1.3-7.7); Neutrophils % (A) 93 %; RBC 3.75 m/uL (3.80-5.40); RDW 17.4 % (11.5-15.5); WBC 9.5 k/uL (3.8-10.6); WBC (Perox) 10.08
[2016-09-08] MEDS: amLODIPine 2.5 MG TAB PO SCH (08:08)
[2016-09-08] MEDS: ENOXAPARIN 40 MG/0.4 ML SYRINGE SQ SCH (08:10)
[2016-09-08] MEDS ORDERED: MAGNESIUM HYDROXIDE 2,400 MG/10 ML CUP PO PRN (10:13)
[2016-09-08 11:46] VITALS: BMI 18.8
--- NOTE | 2016-09-08 11:52 | P.PN ---
Subjective Principal diagnosis: Acute exacerbation of severe end-stage chronic obstructive pulmonary disease This is a very pleasant 66-year-old female patient who follows with Dr. Cornejo as her primary care physician. She has a history of hyperlipidemia, degenerative joint disease, acid reflux disease, sleep apnea syndrome, myocardial infarction , hypertension, skin cancer, glaucoma. She also has a history of severe end- stage oxygen-dependent chronic obstructive pulmonary disease. Her last FEV1 value is apparently 21% of predicted. Unfortunately the patient does continue to smoke. Here on 09/05/2016 with increasing shortness of breath cough and congestion. She was initially placed on BiPAP to maintain O2 saturations in the 90 and she is seen here again today in follow-up in the intensive care unit. Currently awake and alert. She did have an episode of anxiety with tachypnea and tachycardia last evening. She has been treated with Ativan every 6 hours. She is quite wheezy and bronchospastic yet this morning. She is maintaining O2 saturations in the low 90s on 5 L/m per nasal cannula while off the BiPAP. His chest x-ray shows evidence of chronic obstructive pulmonary disease with no acute pulmonary process. Blood and urine cultures reveal no growth. There is mild leukocytosis at 12.6. He spent afebrile. She has been afebrile. The patient is seen again today 09/08/2016 in follow-up in the selective care unit. She is currently awake and alert in no acute distress. She has been continuing to intermittently use the BiPAP and is maintaining O2 saturations greater than 88%. She states she is breathing slightly better today as compared to yesterday. She is afebrile. Hemodynamically stable. She is maintained on bronchodilators, Pulmicort and Perforomist inhalations, para antibiotics in the form of Levaquin. She remains on IV Solu-Medrol. Objective - Vital Signs Vital signs: Vital Signs Temp 96.8 F L 09/08/16 11:36 Pulse 112 H 09/08/16 11:37 Resp 19 09/08/16 11:37 BP 136/71 09/08/16 11:36 Pulse Ox 100 09/08/16 11:36 Intake & Output 09/07/16 09/08/16 09/08/16 18:59 06:59 18:59 Intake Total 975 1270 120 Output Total 1000 100 Balance -25 1270 20 Weight 45.4 kg 45.4 kg Intake: IV 975 1050 Sodium Chloride 0.9% 1, 975 1050 000 ml @ 75 mls/hr IV . [id number] [facility] Rx#:[id number] Intake, IV Titration 100 Amount Levofloxacin 500Mg-D5w 100 Pmx 500 mg In Dextrose/ Water 1 100ml.bag @ 100 mls/hr IVPB HS [facility]A Rx#: [id number] Oral 0 120 120 Output: Urine 1000 100 Other: Voiding Method Bedside Commode Bedside Commode Bedside Commode # Voids 1 1 - Exam GENERAL EXAM: Frail, cachectic. Alert, fairly comfortable in slight distress. HEAD: Normocephalic. EYES: Normal reaction of pupils, equal size. NOSE: Clear with pink turbinates. THROAT: No erythema or exudates. NECK: No masses, no JVD. CHEST: No chest wall deformity. LUNGS: Equal air entry with bilateral wheeze. Diminished throughout. CVS: S1 and S2 normal with no audible murmurs, regular rhythm. ABDOMEN: No hepatosplenomegaly, normal bowel sounds, no guarding or rigidity. SPINE: No scoliosis or deformity SKIN: No rashes CENTRAL NERVOUS SYSTEM: No focal deficits, tone is normal in all 4 extremities. Extremities: There is no significant peripheral edema. No clubbing, no cyanosis. Peripheral pulses are intact. - Labs CBC & Chem 7: 09/08/16 06:13 09/08/16 06:13 Labs: Abnormal Lab Results - Last 24 Hours (Table) 09/08/16 09/08/16 Range/Units 06:13 06:13 RBC 3.75 L (3.80-5.40) m/uL Hgb 11.2 L (11.4-16.0) gm/dL RDW 17.4 H (11.5-15.5) % Neutrophils # 8.8 H (1.3-7.7) k/uL Lymphocytes # 0.4 L (1.0-4.8) k/uL Sodium 136 L (137-145) mmol/L Creatinine 0.48 L (0.52-1.04) mg/dL Glucose 131 H (74-99) mg/dL Microbiology - Last 24 Hours (Table) 09/05/16 18:42 Blood Culture - Preliminary Blood No Growth after 48 hours 09/05/16 21:30 Urine Culture - Final Urine,Catheterized Assessment and Plan Plan: Impression: #1 Acute exacerbation of severe end-stage oxygen-dependent chronic obstructive pulmonary disease. #2 Acute on chronic hypoxic respiratory failure secondary to above. #3 Chronic and ongoing tobacco dependence. #4 Gastroesophageal reflux disease. #5 History of myocardial infarction. #6 Hypertension. #7 Degenerative joint disease. #8 History of sleep apnea. #9 Poor overall functional performance secondary to the above-mentioned multiple comorbidities. Plan: The patient was seen and evaluated by Dr. Carrero. We'll continue to utilize the BiPAP during the evenings and throughout the day as needed. We'll continue with her current medications. The patient remains quite bronchospastic and wheezy but is improved today as compared to yesterday. Moving slightly better air. Her overall prognosis remains quite poor however. She is again educated regarding the importance of complete smoking cessation, counseling done in 3-10 minutes. We will continue to follow.
[2016-09-08] MEDS: NICOTINE 14MG/24HR PATCH TRANSDERM SCH (20:51)
[2016-09-08] MEDS: MELATONIN 3 MG TABLET PO SCH (20:51)
[2016-09-08] MEDS: ATORVASTATIN 40 MG TAB PO SCH (20:51)
[2016-09-08] MEDS: LEVOFLOXACIN 500MG-D5W PMX 500 MG in DEXTROSE/WATER 1 100ML.BAG IVPB SCH (20:58)
--- NOTE | 2016-09-08 23:02 | PN ---
The patient remains on BiPAP and patient has significant expiratory wheezing. I discussed regarding comfort care and hospice. Patient presently wanted to continue her treatment. REVIEW OF SYSTEMS: CARDIOVASCULAR: No chest pain, no orthopnea, no PND, no palpitations. PULMONARY: Severe shortness of breath. GASTROINTESTINAL: No diarrhea, nausea or vomiting. No abdominal pain. Normoactive bowel sounds. NEUROLOGIC: No headaches, no weakness, no numbness. Medications were reviewed. PHYSICAL EXAMINATION: VITAL SIGNS: Temperature 96.8, pulse of 112, respiratory rate of 19, blood pressure is 136/71, saturating at 100% on 35% BiPAP. Please refer to medical [employer] [facility] sales for further details. GENERAL: Very thin built, alert and oriented x3. She is in significant respiratory distress in spite of Ventimask and patient is on and off BiPAP. HEENT: Pupils are round and equally reacting to light. EOMI. No scleral icterus. No conjunctival pallor. Normocephalic, atraumatic. No pharyngeal erythema. No thyromegaly. CARDIOVASCULAR: S1 and S2 present. No murmurs, rubs, or gallops. PULMONARY: Severe expiratory wheezing, significantly decreased air entry into bilateral lung reynolds. Patient is thin built female using accessory muscles of breathing. ABDOMEN: Soft, nontender, nondistended, normoactive bowel sounds. No palpable organomegaly. MUSCULOSKELETAL: No joint swelling or deformity. EXTREMITIES: No cyanosis, clubbing, or pedal edema. NEUROLOGICAL: Gross neurological examination did not reveal any focal deficits. SKIN: No rashes. LABORATORY DATA: CBC, CMP: No significant abnormality was appreciated. ASSESSMENT AND PLAN: 1. Acute on chronic hypercapnic respiratory failure. Patient has severe end-stage chronic obstructive pulmonary disease. Respiratory support as mentioned above. Patient wanted us to continue treatment at this point of time. 2. Tracheobronchitis for which patient is on levofloxacin. 3. Hypertension. 4. Hyperkalemia. 5. Gastroesophageal reflux disease. 6. Hyperlipidemia. 7. Sleep apnea. PLAN: Continue with antibiotics. Continue with systemic steroids, inhalational treatments. Patient's overall prognosis extremely poor. Her clinical condition is still guarded.
[2016-09-09] MEDS: methylPREDNISolone SOD SUCCI 125 MG/2 ML VIAL IV SCH ×4 (00:17→17:03)
[2016-09-09] MEDS: IPRATROPIUM-ALBUTEROL 3 ML NEB INHALATION SCH ×7 (00:20→23:40)
[2016-09-09] MEDS: LORazepam 2 MG/ML SYRINGE IV PRN ×4 (05:34→20:02)
[2016-09-09] MEDS: SODIUM CHLORIDE 0.9% 1,000 ML IV SCH ×2 (05:38→09:04)
[2016-09-09] MEDS: PANTOPRAZOLE 40 MG TABLET PO SCH (06:38)
[2016-09-09 07:12] LABS: Anisocytosis Slight; Basophils % (A) 0 %; CH 29.5; CHCM 32.2; Eosinophils % (A) 0 %; HCT 36.8 % (34.0-46.0); HGB 11.9 gm/dL (11.4-16.0); Luc # (Auto) 0.05; Luc % (Auto) 1; Lymphocytes # (A) 0.4 k/uL (1.0-4.8); Lymphocytes % (A) 5 %; MCH 29.8 pg (25.0-35.0); MCHC 32.4 g/dL (31.0-37.0); Mean Platelet Volume 7.1; Monocytes # (A) 0.2 k/uL (0-1.0); Monocytes % (A) 3 %; Neutrophils # (A) 7.6 k/uL (1.3-7.7); Neutrophils % (A) 92 %; WBC 8.3 k/uL (3.8-10.6); WBC (Perox) 8.63
[2016-09-09 07:24] LABS: Anion Gap 4 mmol/L; Blood Urea Nitrogen 15 mg/dL (7-17); Calcium 8.6 mg/dL (8.4-10.2); Carbon Dioxide 32 mmol/L (22-30); Chloride 100 mmol/L (98-107); Glucose 126 mg/dL (74-99); Magnesium 2.3 mg/dL (1.6-2.3); Non-African American GFR(MDRD) >60 (>60 ml/min/1.73 sqM); Phosphorous 3.3 mg/dL (2.5-4.5); Potassium 4.5 mmol/L (3.5-5.1); Sodium 136 mmol/L (137-145)
[2016-09-09] MEDS: FORMOTEROL FUMARATE 20 MCG/2 ML NEBU INHALATION SCH ×2 (08:18→18:49)
[2016-09-09] MEDS: BUDESONIDE 1 MG/2 ML NEBU INHALATION SCH ×2 (08:18→18:49)
[2016-09-09] MEDS: HYDROcodone/APAP 7.5-325MG 1 EACH TAB PO PRN (09:02)
[2016-09-09] MEDS: amLODIPine 2.5 MG TAB PO SCH (09:03)
[2016-09-09] MEDS: ENOXAPARIN 40 MG/0.4 ML SYRINGE SQ SCH (09:03)
--- NOTE | 2016-09-09 12:56 | P.PN ---
Subjective Principal diagnosis: Acute exacerbation of severe end-stage chronic obstructive pulmonary disease This is a very pleasant 66-year-old female patient who follows with Dr. Cornejo as her primary care physician. She has a history of hyperlipidemia, degenerative joint disease, acid reflux disease, sleep apnea syndrome, myocardial infarction , hypertension, skin cancer, glaucoma. She also has a history of severe end- stage oxygen-dependent chronic obstructive pulmonary disease. Her last FEV1 value is apparently 21% of predicted. Unfortunately the patient does continue to smoke. Here on 09/05/2016 with increasing shortness of breath cough and congestion. She was initially placed on BiPAP to maintain O2 saturations in the 90 and she is seen here again today in follow-up in the intensive care unit. Currently awake and alert. She did have an episode of anxiety with tachypnea and tachycardia last evening. She has been treated with Ativan every 6 hours. She is quite wheezy and bronchospastic yet this morning. She is maintaining O2 saturations in the low 90s on 5 L/m per nasal cannula while off the BiPAP. His chest x-ray shows evidence of chronic obstructive pulmonary disease with no acute pulmonary process. Blood and urine cultures reveal no growth. There is mild leukocytosis at 12.6. He spent afebrile. She has been afebrile. The patient is seen again today 09/08/2016 in follow-up in the selective care unit. She is currently awake and alert in no acute distress. She has been continuing to intermittently use the BiPAP and is maintaining O2 saturations greater than 88%. She states she is breathing slightly better today as compared to yesterday. She is afebrile. Hemodynamically stable. She is maintained on bronchodilators, Pulmicort and Perforomist inhalations, para antibiotics in the form of Levaquin. She remains on IV Solu-Medrol. The patient is seen again today 09/09/2016 in follow-up. She continues to utilize the BiPAP throughout the evening and intermittently throughout the day. She is currently on 5 L of nasal cannula and maintaining O2 saturations in the upper 80s and low 90s. She gets quite dyspneic with minimal exertion. She also has high level of anxiety. Objective - Vital Signs Vital signs: Vital Signs Temp 96.7 F L 09/09/16 11:17 Pulse 101 H 06/02/17 11:19 Resp 18 09/09/16 11:18 BP 155/89 09/09/16 11:17 Pulse Ox 100 09/09/16 11:17 Intake & Output 09/08/16 09/09/16 09/09/16 18:59 06:59 18:59 Intake Total 1260 900 100 Output Total 750 1425 Balance 510 900 -1325 Weight 45.4 kg 45.2 kg Intake: IV 900 900 Sodium Chloride 0.9% 1, 900 900 000 ml @ 75 mls/hr IV . [id number] [facility] Rx#:[id number] Oral 360 100 Output: Urine 750 1425 Other: Voiding Method Bedside Commode Bedside Commode Bedside Commode # Voids 2 3 5 - Exam GENERAL EXAM: Frail, cachectic. Alert, fairly comfortable in slight distress. HEAD: Normocephalic. EYES: Normal reaction of pupils, equal size. NOSE: Clear with pink turbinates. THROAT: No erythema or exudates. NECK: No masses, no JVD. CHEST: No chest wall deformity. LUNGS: Equal air entry with bilateral wheeze. Diminished throughout. CVS: S1 and S2 normal with no audible murmurs, regular rhythm. ABDOMEN: No hepatosplenomegaly, normal bowel sounds, no guarding or rigidity. SPINE: No scoliosis or deformity SKIN: No rashes CENTRAL NERVOUS SYSTEM: No focal deficits, tone is normal in all 4 extremities. Extremities: There is no significant peripheral edema. No clubbing, no cyanosis. Peripheral pulses are intact. - Labs CBC & Chem 7: 09/09/16 06:08 09/09/16 06:08 Labs: Abnormal Lab Results - Last 24 Hours (Table) 09/09/16 09/09/16 Range/Units 06:08 06:08 RDW 17.0 H (11.5-15.5) % Lymphocytes # 0.4 L (1.0-4.8) k/uL Sodium 136 L (137-145) mmol/L Carbon Dioxide 32 H (22-30) mmol/L Creatinine 0.47 L (0.52-1.04) mg/dL Glucose 126 H (74-99) mg/dL Microbiology - Last 24 Hours (Table) 09/05/16 18:42 Blood Culture - Preliminary Blood No Growth after 72 hours Assessment and Plan Plan: Impression: #1 Acute exacerbation of severe end-stage oxygen-dependent chronic obstructive pulmonary disease. #2 Acute on chronic hypoxic respiratory failure secondary to above. #3 Chronic and ongoing tobacco dependence. #4 Gastroesophageal reflux disease. #5 History of myocardial infarction. #6 Hypertension. #7 Degenerative joint disease. #8 History of sleep apnea. #9 Poor overall functional performance secondary to the above-mentioned multiple comorbidities. Plan: The patient was seen and evaluated by Dr. Carrero. We'll continue to utilize the BiPAP during the evenings and throughout the day as needed. We'll continue with her current medications. Her overall prognosis is quite poor based on her lung function and the other above-mentioned comorbidities. The patient has been approached about hospice but declines. She declines an extended care facility. She is quite adamant about going home. We'll continue to titrate down her FiO2 as tolerated to see if she could be back to her normal O2 requirements at home. She is again educated regarding the importance of complete smoking cessation, counseling done in 5 minutes. We will continue to follow.
--- NOTE | 2016-09-09 14:54 | PN ---
Patient remains on BiPAP on and off. Patient is requiring high amount of oxygen, still wheezing quite a bit. REVIEW OF SYSTEMS: CARDIOVASCULAR: No chest pain, no orthopnea, no PND, no palpitations. PULMONARY: Improved shortness of breath, she says. GASTROINTESTINAL: No diarrhea, nausea or vomiting. No abdominal pain. Normoactive bowel sounds. NEUROLOGIC: No headaches, no weakness, no numbness. She is feeling a little bit better, apparently. Medications were reviewed. PHYSICAL EXAMINATION: VITAL SIGNS: Temperature 97.4, pulse of 101, respiratory rate of 18. Blood pressure is 155/89. Saturating at 100% on BiPAP, which we will taper down GENERAL: Very thin built female. Alert, oriented x3, in mild respiratory distress, using accessory muscles of breathing. HEENT: Pupils are round and equally reacting to light. EOMI. No scleral icterus. No conjunctival pallor. Normocephalic, atraumatic. No pharyngeal erythema. No thyromegaly. CARDIOVASCULAR: S1 and S2 present. No murmurs, rubs, or gallops. PULMONARY: Significant expiratory wheezing was appreciated. Improved air entry into bilateral lung reynolds. ABDOMEN: Soft, nontender, nondistended, normoactive bowel sounds. No palpable organomegaly. MUSCULOSKELETAL: No joint swelling or deformity. EXTREMITIES: No cyanosis, clubbing, or pedal edema. NEUROLOGICAL: Gross neurological examination did not reveal any focal deficits. SKIN: No rashes. LABORATORY DATA: CBC, CMP essentially within normal limits. ASSESSMENT AND PLAN: 1. Acute on chronic hypercapnic respiratory failure secondary to severe chronic obstructive pulmonary disease and acute exacerbation of chronic obstructive pulmonary disease. 2. Tracheobronchitis. 3. Hypertension. 4. Hyperkalemia. 5. Gastroesophageal reflux disease. 6. Sleep apnea. PLAN: Patient has advanced COPD. Continue with systemic steroids, inhalational treatments. Once we are able to get down the oxygen to 5 or 6 liters, and if she is saturating above 85, patient will be discharged. Patient's prognosis is extremely poor. Patient is at very high risk for readmission because of her overall poor lung function along with continued smoking history. Patient is now willing to quit smoking.
[2016-09-09] MEDS ORDERED: LEVOFLOXACIN 500 MG TAB PO SCH (21:00)
[2016-09-09] MEDS: NICOTINE 14MG/24HR PATCH TRANSDERM SCH (22:19)
[2016-09-09] MEDS: ATORVASTATIN 40 MG TAB PO SCH (22:19)
[2016-09-09] MEDS: MELATONIN 3 MG TABLET PO SCH (22:19)
[2016-09-10] MEDS: methylPREDNISolone SOD SUCCI 125 MG/2 ML VIAL IV SCH ×3 (00:17→13:41)
[2016-09-10] MEDS: IPRATROPIUM-ALBUTEROL 3 ML NEB INHALATION SCH ×4 (03:24→17:18)
[2016-09-10] MEDS: SODIUM CHLORIDE 0.9% 1,000 ML IV SCH (06:21)
[2016-09-10] MEDS: PANTOPRAZOLE 40 MG TABLET PO SCH (06:22)
[2016-09-10 07:07] LABS: Anisocytosis Slight; Basophils % (A) 0 %; CH 29.3; CHCM 31.2; Eosinophils % (A) 0 %; HCT 42.5 % (34.0-46.0); HDW 2.31; HGB 13.2 gm/dL (11.4-16.0); Luc # (Auto) 0.12; Luc % (Auto) 1; Lymphocytes # (A) 1.6 k/uL (1.0-4.8); Lymphocytes % (A) 16 %; MCH 29.3 pg (25.0-35.0); MCHC 31.1 g/dL (31.0-37.0); Mean Platelet Volume 6.9; Monocytes # (A) 0.5 k/uL (0-1.0); Monocytes % (A) 6 %; Neutrophils # (A) 7.4 k/uL (1.3-7.7); Neutrophils % (A) 77 %; RBC 4.52 m/uL (3.80-5.40); WBC 9.7 k/uL (3.8-10.6)
[2016-09-10 07:31] LABS: Anion Gap 6 mmol/L; Blood Urea Nitrogen 15 mg/dL (7-17); Carbon Dioxide 36 mmol/L (22-30); Chloride 97 mmol/L (98-107); Glucose 87 mg/dL (74-99); Magnesium 2.2 mg/dL (1.6-2.3); Non-African American GFR(MDRD) >60 (>60 ml/min/1.73 sqM); Phosphorous 3.4 mg/dL (2.5-4.5); Potassium 4.3 mmol/L (3.5-5.1); Sodium 139 mmol/L (137-145)
[2016-09-10] MEDS: HYDROcodone/APAP 7.5-325MG 1 EACH TAB PO PRN (08:40)
[2016-09-10] MEDS: LORazepam 2 MG/ML SYRINGE IV PRN (08:40)
[2016-09-10] MEDS: ENOXAPARIN 40 MG/0.4 ML SYRINGE SQ SCH (08:41)
[2016-09-10] MEDS: amLODIPine 2.5 MG TAB PO SCH (08:41)
[2016-09-10] MEDS: BUDESONIDE 1 MG/2 ML NEBU INHALATION SCH (08:56)
[2016-09-10] MEDS: FORMOTEROL FUMARATE 20 MCG/2 ML NEBU INHALATION SCH (08:56)
[2016-09-10] MEDS ORDERED: predniSONE 20 MG TAB PO SCH (12:30)
[2016-09-10 16:04] VITALS: BP 155/92; PULSE 120; RESP 24; TEMP 97.5
--- NOTE | 2016-09-10 16:32 | PN ---
This is a 66-year-old female with a history of end-stage COPD. Her primary physician is Dr. Cornejo. She has a history of severe end-stage COPD oxygen -dependent, hyperlipidemia, DJD, gastroesophageal reflux disease, sleep apnea syndrome, myocardial infarction, skin cancer, glaucoma, essential hypertension. She went the whole night last night without BiPAP. Her O2 currently at 4 liters per minute. She is doing reasonably well. She states to me today she wants to go home. Eventually what we will try to do is get her home trilogy ventilator or ( ) machine for home use. She sees me in the office, but she does not really come to her appointment all that frequently. Current vital signs include a temperature 96.5, heart rate 87, respiratory rate 20, blood pressure 169/94, mean 119, 4 liters 100%. Appears in no acute distress, looks like she is at her baseline. Mildly tachypneic. HEENT examination is grossly unremarkable. Neck mucous membranes are moist. No oral lesions. Neck is supple. Full range of motion. No adenopathy or thyromegaly. Cardiovascular examination reveals regular rhythm and rate. S1, S2 normal. No S3, S4 or murmur. Lungs reveal diminished breath sounds. A few scattered rhonchi and wheezes not much. Breath sounds are equal. ABDOMEN: Soft. Bowel sounds are heard. EXTREMITIES: Intact. No cyanosis, clubbing, or edema. Skin without rash. NEUROLOGICAL: Examination is nonfocal. No recent x-rays to report. Labs are reviewed. White count 9.7, hemoglobin 13.2, hematocrit 42.5, platelet count ( ). Sodium 139, potassium 4.3, chloride 97, CO2 of 36, BUN and creatinine were 15 and 0.46. Microbiology is all negative. Medications are reviewed. ASSESSMENT: 1. Chronic obstructive pulmonary disease exacerbation in a patient with end stage COPD. 2. Acute hypoxemic respiratory failure. 3. Chronic and ongoing tobacco use. 4. Chronic hypercapnic respiratory failure. 5. Gastroesophageal reflux disease. 6. History of myocardial infarction. 7. Essential hypertension. 8. Degenerative joint disease. 9. History of sleep apnea syndrome. 10. History of anorexia/cachexia syndrome of chronic illness. PLAN: The medications are reviewed. I will DC her Solu-Medrol, put her on prednisone. Will DC the Pulmicort and the Perforomist and get her back on Symbicort. Additional recommendations and suggestions are forthcoming. She could be discharged home soon.
[2016-09-10] MEDS ORDERED: SYMBICORT 160-4.5 MCG INHALER INHALATION SCH (20:00)
--- NOTE | 2016-09-11 11:09 | DS ---
DATE OF ADMISSION: 09/05/2016 DATE OF DISCHARGE: 09/10/2016 Patient wanted to be discharged. Patient is saturating okay on 4 liters, but still has severe wheezing. Patient has pretty advanced chronic obstructive pulmonary disease and patient is definitely high risk for readmission. Patient although will be discharged today. Patient was seen and examined on the day of discharge. Vitals are stable. PHYSICAL EXAMINATION: GENERAL: Thin built female. Alert and oriented x3. HEENT: Pupils are round and equally reacting to light. EOMI. No scleral icterus. No conjunctival pallor. Normocephalic, atraumatic. No pharyngeal erythema. No thyromegaly. CARDIOVASCULAR: S1 and S2 present. No murmurs, rubs, or gallops. PULMONARY: Lung examination limited air entry into bilateral lung reynolds. Significant expiratory wheezing. This is her baseline. Patient is requiring 4 liters of oxygen at this point of time. ABDOMEN: Soft, nontender, nondistended, normoactive bowel sounds. No palpable organomegaly. MUSCULOSKELETAL: No joint swelling or deformity. EXTREMITIES: No cyanosis, clubbing, or pedal edema. NEUROLOGICAL: Gross neurological examination did not reveal any focal deficits. SKIN: No rashes. ASSESSMENT AND PLAN: 1. Acute on chronic hypercapnic respiratory failure secondary to chronic obstructive pulmonary disease exacerbation. 2. Counseling regarding nicotine cessation was provided. 3. Tracheobronchitis. 4. Hypertension. 5. Hyperkalemia. 6. Gastroesophageal reflux disease. 7. Sleep apnea. Please refer to my depart summary for further details of discharge medications. Activity as tolerated. Regular diet. Nicotine cessation. Counseling was provided.
== END 2016-09-10 17:19 | disposition home health service (06) | DRG 190 ==
LOC: EC 18:38 → 6ICU 18:55 → 6SEL 09-07 21:29
PROVIDERS: ADMIT Hospitalist; ATTEND Hospitalist
DX: J44.1 Chronic obstructive pulmonary disease with (acute) exacerbation (principal); J96.22 Acute and chronic respiratory failure with hypercapnia; J96.21 Acute and chronic respiratory failure with hypoxia; R64 Cachexia; Z99.81 Dependence on supplemental oxygen; Z66 Do not resuscitate; I10 Essential (primary) hypertension; F17.210 Nicotine dependence, cigarettes, uncomplicated; K21.9 Gastro-esophageal reflux disease without esophagitis; E78.5 Hyperlipidemia, unspecified; I25.2 Old myocardial infarction; E87.5 Hyperkalemia; M19.91 Primary osteoarthritis, unspecified site; T46.4X5A Adverse effect of angiotensin-converting-enzyme inhibitors, initial encounter; F41.9 Anxiety disorder, unspecified; I25.10 Atherosclerotic heart disease of native coronary artery without angina pectoris; G47.30 Sleep apnea, unspecified; H40.9 Unspecified glaucoma; Z87.11 Personal history of peptic ulcer disease; Z90.710 Acquired absence of both cervix and uterus; Z85.828 Personal history of other malignant neoplasm of skin; Z88.7 Allergy status to serum and vaccine; Z79.899 Other long term (current) drug therapy; Z79.52 Long term (current) use of systemic steroids; Z79.51 Long term (current) use of inhaled steroids; Z82.5 Family history of asthma and other chronic lower respiratory diseases; Z82.49 Family history of ischemic heart disease and other diseases of the circulatory system
CPT/HCPCS: 36415; 71010; 80048; 80053; 81001; 82550; 82553; 83735; 83880; 84100; 84484; 85025; 85610; 85730; 87040; 87086; 93005; 94640; 94660; 94760; 96361; 96374; 96375; 99291

== ENCOUNTER 2016-10-12 11:09 | Day surgery (SDC) | payer MEDICARE, OTHER ==
[~2016-10-12 11:09] MED LIST: ALBUTEROL NEB (CONC) 2.5 MG/0.5 ML INHALATION ONE; ATROPINE SULFATE 0.4 MG/ML 1 ML VIAL IM ONE; LACTATED RINGERS 1,000 ML IV ONE; LIDOCAINE 2% (PF) 20 MG/ML 10ML INHALATION ONE
[2016-10-12] MEDS ORDERED: LACTATED RINGERS 1,000 ML IV SCH (11:27)
[2016-10-12 11:40] VITALS: TEMP 98.1
[2016-10-12] MEDS ORDERED: LIDOCAINE 1% 20 ML VIAL (10MG/ML) FOR IV START INTRADERMA ONE (11:50)
[2016-10-12] MEDS ORDERED: LIDOCAINE 1% INJ 10MG/ML (20 ML MDV) ONE (12:02)
[2016-10-12] MEDS ORDERED: PROPOFOL 10 MG/ML 20 ML VIAL IV ONE (12:02)
[2016-10-12] MEDS ORDERED: LIDOCAINE 2% (PF) 20 MG/ML 10ML INHALATION ONE (12:12)
--- NOTE | 2016-10-12 12:38 | PCN ---
PROCEDURE: Bronchoscopy, BAL right middle lobe airway examination, therapeutic lavage. PREOPERATIVE DIAGNOSIS: Severe chronic obstructive pulmonary disease, retained secretions. POSTOPERATIVE DIAGNOSIS: Severe chronic obstructive pulmonary disease, retained secretions. There was informed consent. There was universal timeout. The procedure was done in Room 1. CLINICAL PROJECT LEADER provided general anesthesia or unconscious sedation. After the patient was adequately sedated and being fully monitored, the bronchoscope was inserted through the right nostril. It passed through the right nasopharynx into the oropharynx. The hypopharynx was identified and topicalized. The hypopharyngeal structures including anterior commissure, true cords, arytenoids, piriform sinuses, right and left valleculae and epiglottis appeared normal. After topicalization, the bronchoscope was pushed through the glottic opening into the trachea. Trachea appeared relatively normal. There are secretions noted from the mid to distal trachea. They were frothy and yellow in color. Tracheal isidro was sharp. Next, the right and left mainstem were topicalized. The right upper lobe and its three segments, right middle lobes and its two segments, right lower lobe and its five segments, the left upper lobe proper and its two segments, the lingula and its two segments and left lower lobe and its four segments all have similar findings of diffuse bronchitis, erythema of the airways, mucosal friability and hyperemia of the airways. There is no distinct mass or tumor. There are thick secretions noted throughout. They were suctioned with some difficulty. The bronchoscope was wedged into the right middle lobe. BAL took place. The patient tolerated the procedure well. Lidocaine was used to topicalize the airways and additional secretions were removed. There is no immediate complication. The patient tolerated the procedure well. MI
[2016-10-12] MEDS ORDERED: ALBUTEROL NEBULIZED 2.5 MG/3 ML INHALATION STA (12:55)
[2016-10-12 13:07] VITALS: BP 118/75; RESP 16
[2016-10-12 13:14] VITALS: PULSE 130
[2016-10-12 17:14] LABS: RBC, Body Fluid 2 /uL
== END 2016-10-12 13:23 | disposition home or self-care (01) ==
LOC: ORWHC2ENDO 11:09
PROVIDERS: ATTEND Internal Medicine Critical Care Medicine
DX: J44.9 Chronic obstructive pulmonary disease, unspecified (principal); I10 Essential (primary) hypertension; R78.5 Finding of other psychotropic drug in blood; I25.2 Old myocardial infarction; Z87.891 Personal history of nicotine dependence; Z99.81 Dependence on supplemental oxygen; K21.9 Gastro-esophageal reflux disease without esophagitis; Z79.51 Long term (current) use of inhaled steroids; Z79.52 Long term (current) use of systemic steroids; Z79.899 Other long term (current) drug therapy
CPT/HCPCS: 94640 ×2; 88108; 88305; 89050; 87252; 87070; 87205; 87116; 87102; 87206; 31624; J2001 ×2; J2704; 87496; 87498; 87502; 87529; 87798

== ENCOUNTER 2016-10-13 18:31 | Inpatient (IN) | payer MEDICARE, OTHER ==
[2016-10-13] MEDS ORDERED: IPRATROPIUM-ALBUTEROL 3 ML NEB INHALATION STA (19:46)
[2016-10-13] MEDS ORDERED: methylPREDNISolone SOD SUCCI 125 MG/2 ML VIAL IV STA (19:46)
[2016-10-13] MEDS ORDERED: SODIUM CHLORIDE 0.9% 1,000 ML IV STA ×2 (19:46→22:12)
--- NOTE | 2016-10-13 19:51 | ED ---
SOB HPI - General Chief Complaint: Shortness of Breath Stated Complaint: JONE Time Seen by Provider: 10/13/16 19:41 Source: patient Mode of arrival: EMS - History of Present Illness Initial Comments: This 66-year-old end-stage COPD patient presents with a complaint of some shortness of breath. This is been present over the last 1 day. She states that she feels fairly weak and her feet are swollen. She denies any chest pain. She has had a minimal cough with yellowish to clearish production. She denies any actual fever. She does relate that she had a bronchoscopy done yesterday to "scrape her lungs". This was done by Dr. Carrero and she states that everything went well. She quit tobacco usage 3 weeks ago. No other complaints or modifying factors. - Related Data Home Medications Medication Instructions Recorded Confirmed Albuterol Inhaler [Ventolin Hfa 1 - 2 puff INHALATION RT-Q4H PRN 09/30/15 Inhaler] Budesonide-Formot 160-4.5 Mcg 2 puff INHALATION RT-BID 10/12/15 10/13/16 [Symbicort 160-4.5 Mcg Inhaler] Melatonin 3 mg PO HS PRN 05/06/16 10/13/16 HYDROcodone/APAP 7.5-325MG [[place] 1 tab PO Q8H PRN 06/12/16 10/13/16 7.5-325] amLODIPine [Norvasc] 2.5 mg PO DAILY 07/09/16 10/13/16 LORazepam [Ativan] 0.5 mg PO BID PRN 09/05/16 10/13/16 Previous Rx's Medication Instructions Recorded Albuterol Nebulized [Ventolin 2.5 mg INHALATION RT-QID #0 06/13/16 Nebulized] Ipratropium Nebulized [Atrovent 0.5 mg INHALATION RT-QID #0 06/13/16 Nebulized] Allergies Allergy/AdvReac Type Severity Reaction Status Date / Time pneumococcal vaccine Allergy Unknown Unknown Verified 10/13/16 20:25 Influenza Virus Vaccines Allergy Unknown Verified 10/13/16 20:25 Review of Systems ROS Statement: Those systems with pertinent positive or pertinent negative responses have been documented in the HPI. ROS Other: All systems not noted in ROS Statement are negative. 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 Last Myocardial Infarction Date:: 2011? History of Any Multi-Drug Resistant Organisms: None Reported Past Surgical History: Appendectomy, Back Surgery, Bowel Resection, Section, Hysterectomy, Orthopedic Surgery Additional Past Surgical History / Comment(s): 10/28/15 anterior cervical decompression fusion C3-4,C4-5,C5-6 with NIM cord monitoring, BACK SURGERY lami / FUSION/discectomy, manolo CATARACT SURGERY, LASER EYE SURGERY FOR GLAUCOMA., RIGHT KNEE SURGERY(fx kneecap). Neck surgery, has bars and screws in the neck, bronchoscope Past Anesthesia/Blood Transfusion Reactions: No Reported Reaction Past Psychological History: No Psychological Hx Reported, Anxiety Smoking Status: Current every day smoker Past Alcohol Use History: Occasional Past Drug Use History: None Reported - Past Family History Mother Family Medical History: Myocardial Infarction ([place]) Additional Family Medical History / Comment(s): Mother had a [place] in her 50's Father Family Medical History: No Reported History Additional Family Medical History / Comment(s): FORM OLD AGE Brother(s) Family Medical History: Asthma, COPD Sister(s) Family Medical History: Asthma, COPD General Exam - General Exam Comments Initial Comments: GENERAL: The patient appears malnourished and cachectic. VITAL SIGNS: Heart rate, blood pressure, respiratory rate reviewed as recorded in nurse's notes. EYES: Pupils are round and reactive. Extraocular movements are intact. No conjunctival / lid redness or swelling. ENT: No external evidence of injury, swelling, or ecchymosis. Airway is patent. Throat is clear. NECK: Nontender. No swelling or evidence of injury. No subcutaneous emphysema. Trachea is midline. No thyroid mass. HEART: Regular rate and rhythm. Good peripheral pulses. LUNGS/CHEST: Wheezing noted bilaterally. No ecchymosis, subcutaneous emphysema , or tenderness. ABDOMEN: Abdomen soft without tenderness. No palpable masses or organomegaly. No peritoneal signs. No abdominal wall swelling or ecchymosis. EXTREMITIES: No extremity tenderness. Normal muscle tone and function. No thoracolumbar tenderness. There is some mild edema in the feet bilaterally. NEUROLOGIC: Sensation is grossly intact. Cranial nerve exam reveals face is symmetrical, tongue is midline, speech is clear. SKIN: No abrasions or ecchymosis is noted. No induration or masses noted. PSYCHIATRIC: Alert and oriented. Appropriate behavior and judgment. Course Vital Signs 10/13/16 10/13/16 10/13/16 18:38 20:14 20:23 Temperature 98.7 F Pulse Rate 111 H 116 H 99 Respiratory 24 18 Rate Blood Pressure 134/67 131/59 O2 Sat by Pulse 96 94 L Oximetry 10/13/16 20:35 Temperature Pulse Rate 117 H Respiratory Rate Blood Pressure O2 Sat by Pulse Oximetry Medical Decision Making - Medical Decision Making The patient was seen and examined. All diagnostics were reviewed. An IV is established. She received some Solu-Medrol intravenously. She receives DuoNeb breathing treatments. The EKG is done and shows a normal sinus rhythm with a heart rate of 98. There is no acute ST-T wave changes identified. The SD interval is 122, QRS duration is 86, and the QTc interval is 449. The chest x- ray is reviewed and shows bilateral upper lobe infiltrates. It is felt that this is consistent with the hospital acquired pneumonia as she's been in multiple times. She also has severe elevation of her white blood cell count as well as some electrolyte abnormalities. She has a history of severe COPD and is oxygen dependent at 5 L 24 hours per day. Is felt that she is significantly ill. Her long-term prognosis overall is fairly poor. Is felt as though she would require admission to the hospital for further treatment. Case is discussed with internal medicine and patient will be admitted with Dr. Carrero to consult from pulmonology. - Lab Data Result diagrams: 10/13/16 18:46 10/13/16 18:46 Lab Results 10/13/16 10/13/16 10/13/16 Range/Units 18:46 18:46 18:46 WBC 35.4 H* (3.8-10.6) k/uL RBC 3.39 L (3.80-5.40) m/uL Hgb 10.0 L D (11.4-16.0) gm/dL Hct 30.1 L (34.0-46.0) % MCV 88.9 D (80.0-100.0) fL MCH 29.5 (25.0-35.0) pg MCHC 33.2 (31.0-37.0) g/dL RDW 14.9 (11.5-15.5) % Plt Count 501 H D (150-450) k/uL Neutrophils % 97 % Lymphocytes % 2 % Monocytes % 1 % Eosinophils % 0 % Basophils % 0 % Neutrophils # 34.2 H (1.3-7.7) k/uL Lymphocytes # 0.5 L (1.0-4.8) k/uL Monocytes # 0.5 (0-1.0) k/uL Eosinophils # 0.0 (0-0.7) k/uL Basophils # 0.1 (0-0.2) k/uL Manual Slide Review Performed RBC Morphology Normal PT (9.0-12.0) sec INR (<1.1) APTT (22.0-30.0) sec D-Dimer (<0.60) mg/L FEU Sodium 128 L (137-145) mmol/L Potassium 4.7 (3.5-5.1) mmol/L Chloride 95 L (98-107) mmol/L Carbon Dioxide 19 L (22-30) mmol/L Anion Gap 14 mmol/L BUN 17 (7-17) mg/dL Creatinine 0.45 L (0.52-1.04) mg/dL Est GFR (MDRD) Af Amer >60 (>60 ml/min/1.73 sqM) Est GFR (MDRD) Non-Af >60 (>60 ml/min/1.73 sqM) Glucose 100 H (74-99) mg/dL Calcium 8.7 (8.4-10.2) mg/dL Total Bilirubin 0.3 (0.2-1.3) mg/dL AST 24 (14-36) U/L ALT 25 (9-52) U/L Alkaline Phosphatase 144 H (38-126) U/L Total Creatine Kinase 36 (30-135) U/L CK-MB (CK-2) 2.4 (0.0-2.4) ng/mL CK-MB (CK-2) Rel Index 6.7 Troponin I <0.012 (0.000-0.034) ng/mL NT-Pro-B Natriuret Pep pg/mL Total Protein 5.6 L (6.3-8.2) g/dL Albumin 2.7 L (3.5-5.0) g/dL 10/13/16 10/13/16 Range/Units 18:46 18:46 WBC (3.8-10.6) k/uL RBC (3.80-5.40) m/uL Hgb (11.4-16.0) gm/dL Hct (34.0-46.0) % MCV (80.0-100.0) fL MCH (25.0-35.0) pg MCHC (31.0-37.0) g/dL RDW (11.5-15.5) % Plt Count (150-450) k/uL Neutrophils % % Lymphocytes % % Monocytes % % Eosinophils % % Basophils % % Neutrophils # (1.3-7.7) k/uL Lymphocytes # (1.0-4.8) k/uL Monocytes # (0-1.0) k/uL Eosinophils # (0-0.7) k/uL Basophils # (0-0.2) k/uL Manual Slide Review RBC Morphology PT 10.7 (9.0-12.0) sec INR 1.1 (<1.1) APTT 23.7 (22.0-30.0) sec D-Dimer 3.90 H (<0.60) mg/L FEU Sodium (137-145) mmol/L Potassium (3.5-5.1) mmol/L Chloride (98-107) mmol/L Carbon Dioxide (22-30) mmol/L Anion Gap mmol/L BUN (7-17) mg/dL Creatinine (0.52-1.04) mg/dL Est GFR (MDRD) Af Amer (>60 ml/min/1.73 sqM) Est GFR (MDRD) Non-Af (>60 ml/min/1.73 sqM) Glucose (74-99) mg/dL Calcium (8.4-10.2) mg/dL Total Bilirubin (0.2-1.3) mg/dL AST (14-36) U/L ALT (9-52) U/L Alkaline Phosphatase (38-126) U/L Total Creatine Kinase (30-135) U/L CK-MB (CK-2) (0.0-2.4) ng/mL CK-MB (CK-2) Rel Index Troponin I (0.000-0.034) ng/mL NT-Pro-B Natriuret Pep 516 pg/mL Total Protein (6.3-8.2) g/dL Albumin (3.5-5.0) g/dL Disposition Clinical Impression: Acute exacerbation of chronic obstructive pulmonary disease (COPD), Edema of both feet, Bronchospasm, Weakness, Bilateral pneumonia, Leukocytosis, Anemia, Hyponatremia, Hypochloremia, Respiratory failure Disposition: ADMITTED IP TO THIS HOSP Condition: Poor Time of Disposition: 22:05 Decision Date: 10/13/16 Decision Time: 22:05
[2016-10-13 20:24] LABS: INR 1.1 (<1.1); Partial Thromboplastin Time 23.7 sec (22.0-30.0); Prothrombin Time 10.7 sec (9.0-12.0)
--- NOTE | 2016-10-13 20:26 | XR ---
EXAMINATION TYPE: XR chest 2V DATE OF EXAM: 10/13/2016 COMPARISON: 09/07/2016 HISTORY: Short of breath TECHNIQUE: Frontal and lateral views of the chest are obtained. FINDINGS: There are extensive bilateral upper lobe pulmonary infiltrates. This is worse on the left side. Heart size is normal. There is no heart failure. Cervical spine fusion surgery is noted. Bony t horax shows 50% wedging of approximate T8 vertebra. . IMPRESSION: There are new bilateral upper lobe pneumonia as compared to last exam. This could rela te to reactivation tuberculosis. There is thoracic compression fracture stable compared to 08/27/2016.
[2016-10-13 20:28] LABS: Basophils # (A) 0.1 k/uL (0-0.2); Basophils % (A) 0 %; CH 29.6; CHCM 33.4; Eosinophils % (A) 0 %; HCT 30.1 % (34.0-46.0); HDW 2.68; Luc % (Auto) 0; Lymphocytes # (A) 0.5 k/uL (1.0-4.8); Lymphocytes % (A) 2 %; MCH 29.5 pg (25.0-35.0); MCHC 33.2 g/dL (31.0-37.0); Monocytes # (A) 0.5 k/uL (0-1.0); Monocytes % (A) 1 %; Neutrophils # (A) 34.2 k/uL (1.3-7.7); Neutrophils % (A) 97 %; RBC 3.39 m/uL (3.80-5.40); RDW 14.9 % (11.5-15.5); WBC (Perox) 33.64
[2016-10-13 20:29] LABS: WBC 35.4 k/uL (3.8-10.6)
[2016-10-13 20:30] LABS: MCV 88.9 fL (80.0-100.0)
[2016-10-13 20:48] LABS: ALT 25 U/L (9-52); AST 24 U/L (14-36); Alkaline Phosphatase 144 U/L (38-126); Anion Gap 14 mmol/L; Blood Urea Nitrogen 17 mg/dL (7-17); Calcium 8.7 mg/dL (8.4-10.2); Carbon Dioxide 19 mmol/L (22-30); Chloride 95 mmol/L (98-107); Glucose 100 mg/dL (74-99); Non-African American GFR(MDRD) >60 (>60 ml/min/1.73 sqM); Potassium 4.7 mmol/L (3.5-5.1); Sodium 128 mmol/L (137-145); Total Bilirubin 0.3 mg/dL (0.2-1.3); Total Protein 5.6 g/dL (6.3-8.2)
[2016-10-13 20:51] LABS: Creatine Kinase 36 U/L (30-135)
[2016-10-13 21:05] LABS: Creatine Kinase MB 2.4 ng/mL (0.0-2.4); Troponin I <0.012 ng/mL (0.000-0.034)
[2016-10-13 21:08] LABS: Manual Review Performed
[2016-10-13 21:09] LABS: RBC Morphology Normal
[2016-10-13] MEDS ORDERED: LEVOFLOXACIN 500MG-D5W PMX 500 MG in DEXTROSE/WATER 1 100ML.BAG IVPB STA (21:27)
[2016-10-13] MEDS ORDERED: PIPERACILLIN-TAZOBACTAM 3.375 GM in DEXTROSE/WATER 1 50ML.BAG IVPB STA (21:27)
[2016-10-13] MEDS ORDERED: PNEUMONIA PROTOCOL UTILIZED 1 EACH MISC PO PRN (22:06)
[2016-10-13] MEDS: LORazepam 0.5 MG TAB PO PRN (23:41)
[2016-10-13] MEDS: HYDROcodone/APAP 7.5-325MG 1 EACH TAB PO PRN (23:41)
[2016-10-14 04:22] LABS: Hemoglobin A1C 6.3 % (4.2-6.1)
[2016-10-14] MEDS: IPRATROPIUM-ALBUTEROL 3 ML NEB INHALATION PRN ×5 (05:13→20:36)
[2016-10-14 05:47] LABS: Glucose,Whole Blood 168 mg/dL (75-99)
[2016-10-14] MEDS: PIPERACILLIN-TAZOBACTAM 3.375 GM in DEXTROSE/WATER 1 50ML.BAG IVPB SCH ×3 (06:22→23:10)
[2016-10-14] MEDS: INSULIN LISPRO (humaLOG) 300 UNIT/3 ML VIAL SQ SCH ×4 (06:25→20:39)
[2016-10-14] MEDS: SYMBICORT 160-4.5 MCG INHALER INHALATION SCH ×2 (08:09→20:36)
[2016-10-14] MEDS: methylPREDNISolone SOD SUCCI 125 MG/2 ML VIAL IV SCH ×4 (08:23→21:10)
[2016-10-14] MEDS: ENOXAPARIN 40 MG/0.4 ML SYRINGE SQ SCH (08:23)
[2016-10-14] MEDS: amLODIPine 2.5 MG TAB PO SCH (08:24)
--- NOTE | 2016-10-14 10:31 | P.HPIM ---
History of Present Illness H&P Date: 10/14/16 Chief Complaint: Difficulty in breathing This is a 66-year-old female with advanced COPD chronic hypoxic respiratory failure comes in the hospital with progressive worsening of difficulty breathing over the last 2 days. Patient underwent a bronchoscopy for retained secretions [address] Carrero Patient comes in with complains of increased sputum production yellowish greenish in color. Is stable on 5 L supplement oxygen however states that she has auditory wheezing and progressive worsening of breathing difficulty Denies having fevers chills nausea vomiting diarrhea oral thrush. Patient is admitted to the hospital multiple times with similar complains In the emergency room patient was noted to have a bilateral upper lobe air space disease consistent with the pneumonia The time of my evaluation states that the her breathing is slightly better however is not back to her baseline States that she has recently quit smoking Review of Systems All systems: negative (Noted in HPI) Past Medical History Past Medical History: Asthma, Cancer, COPD, Eye Disorder, GERD/Reflux, Hyperlipidemia, Hypertension, Myocardial Infarction ([place]), Osteoarthritis ([place]), Pneumonia, Respiratory Disorder, Sleep Apnea/CPAP/BIPAP Additional Past Medical History / Comment(s): Advanced oxygen-dependent COPD with chronic hypoxic respiratory failure and with multiple hospitalization for COPD exacerbations, born with a single left kidney, previous [place], PUD, bilateral glaucoma, skin cancer, previous history of bowel obstruction, 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 Last Myocardial Infarction Date:: 2011? History of Any Multi-Drug Resistant Organisms: None Reported Past Surgical History: Appendectomy, Back Surgery, Bowel Resection, Section, Hysterectomy, Orthopedic Surgery Additional Past Surgical History / Comment(s): 10/28/15 anterior cervical decompression fusion C3-4,C4-5,C5-6 with NIM cord monitoring, BACK SURGERY lami / FUSION/discectomy, manolo CATARACT SURGERY, LASER EYE SURGERY FOR GLAUCOMA., RIGHT KNEE SURGERY(fx kneecap). Neck surgery, has bars and screws in the neck, bronchoscope Past Anesthesia/Blood Transfusion Reactions: No Reported Reaction Past Psychological History: No Psychological Hx Reported, Anxiety Additional Psychological History / Comment(s): Pt has a son and laurie-in-law that reside with her. She uses a wheeled walker to ambulate. She does not drive-a friend takes her to appts. She has O2 at 4L/NC ATC. She has a nebulizer. Smoking Status: Former smoker Past Alcohol Use History: Occasional Past Drug Use History: None Reported - Past Family History Mother Family Medical History: Myocardial Infarction ([place]) Additional Family Medical History / Comment(s): Mother had a [place] in her 50's Father Family Medical History: No Reported History Additional Family Medical History / Comment(s): FORM OLD AGE Brother(s) Family Medical History: Asthma, COPD Sister(s) Family Medical History: Asthma, COPD Medications and Allergies Home Medications Medication Instructions Recorded Confirmed Type Albuterol Inhaler [Ventolin Hfa 1 - 2 puff INHALATION RT-Q4H PRN 09/30/15 History Inhaler] Budesonide-Formot 160-4.5 Mcg 2 puff INHALATION RT-BID 10/12/15 10/13/16 History [Symbicort 160-4.5 Mcg Inhaler] Melatonin 3 mg PO HS PRN 05/06/16 10/13/16 History HYDROcodone/APAP 7.5-325MG [[place] 1 tab PO Q8H PRN 06/12/16 10/13/16 History 7.5-325] amLODIPine [Norvasc] 2.5 mg PO DAILY 07/09/16 10/13/16 History LORazepam [Ativan] 0.5 mg PO BID PRN 09/05/16 10/13/16 History Allergies Allergy/AdvReac Type Severity Reaction Status Date / Time pneumococcal vaccine Allergy Unknown Unknown Verified 10/13/16 20:25 Influenza Virus Vaccines Allergy Unknown Verified 10/13/16 20:25 Physical Exam Vitals: Vital Signs Temp Pulse Pulse Resp BP BP Pulse Ox 10/14/16 08:25 96 10/14/16 08:11 98 10/14/16 05:25 96 10/14/16 05:14 90 10/14/16 03:30 98.0 F 92 17 118/58 96 10/13/16 23:49 97.1 F L 104 H 26 H 139/63 96 10/13/16 22:48 97.9 F 110 H 18 124/57 97 10/13/16 22:23 97.1 F L 104 H 18 139/63 96 10/13/16 22:06 96 10/13/16 20:35 117 H 10/13/16 20:23 99 18 131/59 94 L 10/13/16 20:14 116 H 10/13/16 18:38 98.7 F 111 H 24 134/67 96 Intake and Output 10/13/16 10/14/16 10/14/16 22:59 06:59 14:59 Intake Total 120 Output Total 450 Balance -450 120 Intake: Oral 120 Output: Urine 450 Other: Voiding Method Bedside Commode # Voids 1 Weight 34.019 kg 40.6 kg frail cachectic lady Gen. appearance no distress alert oriented 3 Lungs diminished breath sounds diffuse expiratory wheezing no rhonchi appreciated Heart S1-S2 heard regular rate and rhythm no murmurs appreciated Neuro no focal motor or sensory deficits noted Abdomen is soft nontender no organomegaly Results CBC & Chem 7: 10/13/16 18:46 10/13/16 18:46 Labs: Abnormal Lab Results - Last 24 Hours (Table) 10/13/16 10/13/16 10/13/16 Range/Units 18:46 18:46 18:46 WBC 35.4 H* (3.8-10.6) k/uL RBC 3.39 L (3.80-5.40) m/uL Hgb 10.0 L D (11.4-16.0) gm/dL Hct 30.1 L (34.0-46.0) % Plt Count 501 H D (150-450) k/uL Neutrophils # 34.2 H (1.3-7.7) k/uL Lymphocytes # 0.5 L (1.0-4.8) k/uL D-Dimer 3.90 H (<0.60) mg/L FEU Sodium 128 L (137-145) mmol/L Chloride 95 L (98-107) mmol/L Carbon Dioxide 19 L (22-30) mmol/L Creatinine 0.45 L (0.52-1.04) mg/dL Glucose 100 H (74-99) mg/dL POC Glucose (mg/dL) (75-99) mg/dL Hemoglobin A1c (4.2-6.1) % Alkaline Phosphatase 144 H (38-126) U/L Total Protein 5.6 L (6.3-8.2) g/dL Albumin 2.7 L (3.5-5.0) g/dL 10/13/16 10/14/16 Range/Units 18:46 05:46 WBC (3.8-10.6) k/uL RBC (3.80-5.40) m/uL Hgb (11.4-16.0) gm/dL Hct (34.0-46.0) % Plt Count (150-450) k/uL Neutrophils # (1.3-7.7) k/uL Lymphocytes # (1.0-4.8) k/uL D-Dimer (<0.60) mg/L FEU Sodium (137-145) mmol/L Chloride (98-107) mmol/L Carbon Dioxide (22-30) mmol/L Creatinine (0.52-1.04) mg/dL Glucose (74-99) mg/dL POC Glucose (mg/dL) 168 H (75-99) mg/dL Hemoglobin A1c 6.3 H (4.2-6.1) % Alkaline Phosphatase (38-126) U/L Total Protein (6.3-8.2) g/dL Albumin (3.5-5.0) g/dL Thrombosis Risk Factor Assmnt - Choose All That Apply Each Factor Represents 1 point: Abnormal pulmonary function (COPD), Serious lung disease incl. pneumonia (< 1month) Each Risk Factor Represents 2 Points: Age 61-74 years Thrombosis Risk Factor Assessment Total Risk Factor Score: 4 Thrombosis Risk Factor Assessment Level: Moderate Risk Assessment and Plan Plan: 1 acute exacerbation of COPD secondary to bilateral healthcare acquired pneumonia Acute on chronic hypoxic hypercapnic respiratory failure severe protein calorie malnutrition hypertension GERD Objective sleep apnea History of tobacco use Plan Continue with IV steroids. Patient's d-dimer was elevated however patient has a pneumonic infiltrate patient's O2 requirement has not gone up hence clinically does not appear to be a pulmonary embolism Continue breathing treatments Did review the recent bronchoscopy results shows macrophages Senda squamous cells no malignant cells are noted If patient continues to have similar symptoms may benefit from a computed tomography scan of the chest We'll have Dr. Carrero evaluate the patient DVT prophylaxis will be ensured
[2016-10-14 11:28] LABS: Glucose,Whole Blood 157 mg/dL (75-99)
--- NOTE | 2016-10-14 11:36 | P.CNPUL ---
History of Present Illness Consult date: 10/14/16 Requesting physician: Olu Reyes Reason for consult: dyspnea Chief complaint: Shortness of breath, cough, congestion History of present illness: This is a very pleasant 66-year-old female patient who follows with Dr. Sheffield as her primary care physician. She has a history of hyperlipidemia, gastroesophageal reflux disease, degenerative joint disease, sleep apnea syndrome, coronary artery disease, hypertension, glaucoma. She also has significant oxygen dependent chronic obstructive pulmonary disease. She has been maintained on Symbicort and Ventolin inhalers along with albuterol updraft treatments. Unfortunately the patient does continue to smoke despite her multiple readmissions to the hospital for COPD exacerbations. She was last discharged from here on 09/10/2016. She had done well for approximately one month. She was seen by Dr. Mccollum in the office with continued symptoms and had undergone an outpatient bronchoscopy with BAL on 10/12/2016. She states she was fine for approximately 24 hours and she developed increasing shortness of breath cough and congestion and presented here to the emergency room yesterday for the same. She also noted some progressive weakness and increased swelling of her lower extremities. Her cough was productive with faint yellow sputum. No chest pain, palpitations, lightheadedness or dizziness. Her initial white count was 35.4. Hemoglobin 10.0, platelet count 501,000. Sodium 128, bicarb 19. Her chest x-ray does reveal new bilateral upper lobe infiltrates suspicious for hospital-acquired pneumonia. She has been initiated on Zosyn and Levaquin along with the bronchodilators, Symbicort and IV Solu-Medrol. She is seen today in consultation on the regular medical floor. She is awake and alert. She is quite dyspneic even on minimal conversation. She is maintaining O2 saturations in the mid 90s on 5 L/m per nasal cannula. Currently afebrile. Hemodynamically stable. Review of Systems 14 point review of system was conducted. All negative other than as mentioned in the HPI. 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 Last Myocardial Infarction Date:: 2011? History of Any Multi-Drug Resistant Organisms: None Reported Past Surgical History: Appendectomy, Back Surgery, Bowel Resection, Section, Hysterectomy, Orthopedic Surgery Additional Past Surgical History / Comment(s): 10/28/15 anterior cervical decompression fusion C3-4,C4-5,C5-6 with NIM cord monitoring, BACK SURGERY lami / FUSION/discectomy, manolo CATARACT SURGERY, LASER EYE SURGERY FOR GLAUCOMA., RIGHT KNEE SURGERY(fx kneecap). Neck surgery, has bars and screws in the neck, bronchoscope Past Anesthesia/Blood Transfusion Reactions: No Reported Reaction Past Psychological History: No Psychological Hx Reported, Anxiety Additional Psychological History / Comment(s): Pt has a son and laurie-in-law that reside with her. She uses a wheeled walker to ambulate. She does not drive-a friend takes her to [employer]. She has O2 at 4L/NC ATC. She has a nebulizer. Smoking Status: Former smoker Past Alcohol Use History: Occasional Past Drug Use History: None Reported - Past Family History Mother Family Medical History: Myocardial Infarction (OR) Additional Family Medical History / Comment(s): Mother had a OR in her 50's Father Family Medical History: No Reported History Additional Family Medical History / Comment(s): FORM OLD AGE Brother(s) Family Medical History: Asthma, COPD Sister(s) Family Medical History: Asthma, COPD Medications and Allergies Home Medications Medication Instructions Recorded Confirmed Type Albuterol Inhaler [Ventolin Hfa 1 - 2 puff INHALATION RT-Q4H PRN 09/30/15 History Inhaler] Budesonide-Formot 160-4.5 Mcg 2 puff INHALATION RT-BID 10/12/15 10/13/16 History [Symbicort 160-4.5 Mcg Inhaler] Melatonin 3 mg PO HS PRN 05/06/16 10/13/16 History HYDROcodone/APAP 7.5-325MG [[place] 1 tab PO Q8H PRN 06/12/16 10/13/16 History 7.5-325] amLODIPine [Norvasc] 2.5 mg PO DAILY 07/09/16 10/13/16 History LORazepam [Ativan] 0.5 mg PO BID PRN 09/05/16 10/13/16 History Allergies Allergy/AdvReac Type Severity Reaction Status Date / Time pneumococcal vaccine Allergy Unknown Unknown Verified 10/13/16 20:25 Influenza Virus Vaccines Allergy Unknown Verified 10/13/16 20:25 Physical Exam Vitals: Vital Signs Temp Pulse Pulse Resp BP BP Pulse Ox 10/14/16 08:25 96 10/14/16 08:11 98 10/14/16 08:00 98.1 F 72 16 126/75 96 10/14/16 05:25 96 10/14/16 05:14 90 10/14/16 03:30 98.0 F 92 17 118/58 96 10/13/16 23:49 97.1 F L 104 H 26 H 139/63 96 10/13/16 22:48 97.9 F 110 H 18 124/57 97 10/13/16 22:23 97.1 F L 104 H 18 139/63 96 10/13/16 22:06 96 10/13/16 20:35 117 H 10/13/16 20:23 99 18 131/59 94 L 10/13/16 20:14 116 H 10/13/16 18:38 98.7 F 111 H 24 134/67 96 Intake and Output 10/13/16 10/14/16 10/14/16 22:59 06:59 14:59 Intake Total 120 Output Total 450 Balance -450 120 Intake: Oral 120 Output: Urine 450 Other: Voiding Method Bedside Commode # Voids 1 Weight 34.019 kg 40.6 kg GENERAL EXAM: Frail, cachectic. Alert, fairly comfortable. HEAD: Normocephalic. EYES: Normal reaction of pupils, equal size. NOSE: Clear with pink turbinates. THROAT: No erythema or exudates. NECK: No masses, no JVD. CHEST: No chest wall deformity. LUNGS: Equal air entry bilateral wheeze, scattered rhonchi, diminished throughout.. CVS: S1 and S2 normal with no audible murmurs, regular rhythm. ABDOMEN: No hepatosplenomegaly, normal bowel sounds, no guarding or rigidity. SPINE: Kyphoscoliosis SKIN: No rashes, areas of ecchymosis. CENTRAL NERVOUS SYSTEM: No focal deficits, tone is normal in all 4 extremities. Extremities: There is no peripheral edema. No clubbing, no cyanosis. Peripheral pulses are intact. Results - Laboratory Findings CBC and BMP: 10/13/16 18:46 10/13/16 18:46 PT/INR, D-dimer PT 10.7 sec (9.0-12.0) 10/13/16 18:46 INR 1.1 (<1.1) 10/13/16 18:46 D-Dimer 3.90 mg/L FEU (<0.60) H 10/13/16 18:46 Abnormal lab findings: Abnormal Labs 10/13/16 10/13/16 10/13/16 18:46 18:46 18:46 WBC 35.4 H* RBC 3.39 L Hgb 10.0 L D Hct 30.1 L Plt Count 501 H D Neutrophils # 34.2 H Lymphocytes # 0.5 L D-Dimer 3.90 H Sodium 128 L Chloride 95 L Carbon Dioxide 19 L Creatinine 0.45 L Glucose 100 H POC Glucose (mg/dL) Hemoglobin A1c Alkaline Phosphatase 144 H Total Protein 5.6 L Albumin 2.7 L 10/13/16 10/14/16 18:46 05:46 WBC RBC Hgb Hct Plt Count Neutrophils # Lymphocytes # D-Dimer Sodium Chloride Carbon Dioxide Creatinine Glucose POC Glucose (mg/dL) 168 H Hemoglobin A1c 6.3 H Alkaline Phosphatase Total Protein Albumin - Diagnostic Findings Chest x-ray: image reviewed (New upper lobe bilateral infiltrates.) Assessment and Plan Plan: Impression: #1 Acute on chronic hypoxic respiratory failure, multifactorial, new bilateral upper lobe infiltrates suspect hospital-acquired pneumonia, acute exacerbation of severe oxygen dependent chronic obstructive pulmonary disease, chronic nicotine addiction. #2 Acute hospital-acquired bilateral upper lobe pneumonia. #3 Leukocytosis secondary to above. #4 Bronchoscopy with BAL on 10/12/2016 with initial cultures positive for gram- negative bacilli, cytology negative for malignancy and no acid fast bacilli noted. #5 Chronic and ongoing tobacco dependence. #6 Hyponatremia #7 Recent bacteremia with staph hominis in July 2016. #8 Hyperlipidemia. #9 History of sleep apnea syndrome. #10 Hypertension. #11 Degenerative joint disease. #12 Congenital single left kidney. #13 Cachexia #14 Polycythemia #15 Poor overall functional performance based on the above-mentioned multiple comorbidities and frequent hospitalizations. Plan: The patient was seen and evaluated by Dr. Wood. Her chest x-ray and labs were reviewed. We'll continue with her current antibiotics in the form of Zosyn and Levaquin. We'll continue with her Symbicort, bronchodilators and IV Solu-Medrol as well. She is on Lovenox for DVT prophylaxis. We'll repeat her chest x-ray. If there is no significant improvement by early next week we'll plan for repeat bronchoscopy. She is again educated regarding the importance of complete smoking cessation. In the interim, we'll continue to follow and make further recommendations based on her clinical status. Time with Patient: Greater than 30
[2016-10-14] MEDS: LORazepam 0.5 MG TAB PO PRN ×2 (15:27→21:10)
[2016-10-14 16:47] LABS: Glucose,Whole Blood 182 mg/dL (75-99)
[2016-10-14] MEDS: HYDROcodone/APAP 7.5-325MG 1 EACH TAB PO PRN (20:26)
[2016-10-14 20:43] LABS: Glucose,Whole Blood 221 mg/dL (75-99)
[2016-10-14] MEDS ORDERED: LEVOFLOXACIN 500MG-D5W PMX 500 MG in DEXTROSE/WATER 1 100ML.BAG IVPB SCH (21:00)
[2016-10-14] MEDS ORDERED: LEVOFLOXACIN 750MG-D5W PMX 500 MG in DEXTROSE/WATER 1 150ML.BAG IVPB SCH (21:00)
[2016-10-15] MEDS: IPRATROPIUM-ALBUTEROL 3 ML NEB INHALATION PRN ×5 (04:13→20:00)
[2016-10-15 06:05] LABS: Glucose,Whole Blood 196 mg/dL (75-99)
[2016-10-15] MEDS: PIPERACILLIN-TAZOBACTAM 3.375 GM in DEXTROSE/WATER 1 50ML.BAG IVPB SCH ×3 (06:09→21:46)
[2016-10-15] MEDS: INSULIN LISPRO (humaLOG) 300 UNIT/3 ML VIAL SQ SCH ×4 (06:41→21:46)
[2016-10-15] MEDS: SYMBICORT 160-4.5 MCG INHALER INHALATION SCH ×2 (07:04→20:00)
[2016-10-15] MEDS: HYDROcodone/APAP 7.5-325MG 1 EACH TAB PO PRN ×2 (08:44→19:54)
[2016-10-15] MEDS: amLODIPine 2.5 MG TAB PO SCH (08:45)
[2016-10-15] MEDS: ENOXAPARIN 40 MG/0.4 ML SYRINGE SQ SCH (08:45)
[2016-10-15] MEDS: methylPREDNISolone SOD SUCCI 125 MG/2 ML VIAL IV SCH ×4 (08:45→21:46)
--- NOTE | 2016-10-15 11:11 | P.PN ---
Subjective Principal diagnosis: Acute bilateral pneumonia This is a very pleasant 66-year-old female patient who follows with Dr. Sheffield as her primary care physician. She has a history of hyperlipidemia, gastroesophageal reflux disease, degenerative joint disease, sleep apnea syndrome, coronary artery disease, hypertension, glaucoma. She also has significant oxygen dependent chronic obstructive pulmonary disease. She has been maintained on Symbicort and Ventolin inhalers along with albuterol updraft treatments. Unfortunately the patient does continue to smoke despite her multiple readmissions to the hospital for COPD exacerbations. She was last discharged from here on 09/10/2016. She had done well for approximately one month. She was seen by Dr. Mccollum in the office with continued symptoms and had undergone an outpatient bronchoscopy with BAL on 10/12/2016. She states she was fine for approximately 24 hours and she developed increasing shortness of breath cough and congestion and presented here to the emergency room yesterday for the same. She also noted some progressive weakness and increased swelling of her lower extremities. Her cough was productive with faint yellow sputum. No chest pain, palpitations, lightheadedness or dizziness. Her initial white count was 35.4. Hemoglobin 10.0, platelet count 501,000. Sodium 128, bicarb 19. Her chest x-ray does reveal new bilateral upper lobe infiltrates suspicious for hospital-acquired pneumonia. She has been initiated on Zosyn and Levaquin along with the bronchodilators, Symbicort and IV Solu-Medrol. She is seen today in consultation on the regular medical floor. She is awake and alert. She is quite dyspneic even on minimal conversation. She is maintaining O2 saturations in the mid 90s on 5 L/m per nasal cannula. Currently afebrile. Hemodynamically stable. Patient was reevaluated today on 10/15/2016, feels better, breathing easier, less cough and less wheezing less shortness of breath, remains on antibiotics for bilateral right and left upper lobe pneumonia. Sputum cultures are pending, however the last bronchoscopy revealed Pseudomonas aeruginosa, hence I will go ahead and make sure that she has adequate coverage for possible Pseudomonas. This is sensitive to most antibiotics tested including Levaquin and Zosyn as well as cefepime and ceftazidime as well as ciprofloxacin. Patient is presently on Levaquin and Zosyn which is an excellent coverage from the very beginning. Her WBC count was quite elevated couple of days ago, overall the patient is making a significant clinical improvement over the last 2 days. Objective - Vital Signs Vital signs: Vital Signs Temp 97.1 F L 10/15/16 08:41 Pulse 88 10/15/16 10:54 Resp 20 10/15/16 08:41 BP 137/75 10/15/16 08:41 Pulse Ox 98 10/15/16 08:41 Intake & Output 10/14/16 10/15/16 10/15/16 18:59 06:59 18:59 Intake Total 545 100 Output Total 300 Balance 245 100 Weight 40.6 kg 42.1 kg Intake: Oral 545 100 Output: Urine 300 Other: Voiding Method Bedside Commode Bedside Commode # Voids 1 3 # Bowel Movements 0 3 - Exam GENERAL EXAM: Frail, cachectic. Alert, fairly comfortable. HEAD: Normocephalic. EYES: Normal reaction of pupils, equal size. NOSE: Clear with pink turbinates. THROAT: No erythema or exudates. NECK: No masses, no JVD. CHEST: No chest wall deformity. LUNGS: Diminished breath sound bilaterally, no crackles or rhonchi or wheezes today. CVS: S1 and S2 normal with no audible murmurs, regular rhythm. ABDOMEN: No hepatosplenomegaly, normal bowel sounds, no guarding or rigidity. SPINE: Kyphoscoliosis SKIN: No rashes, areas of ecchymosis. CENTRAL NERVOUS SYSTEM: No focal deficits, tone is normal in all 4 extremities. Extremities: There is no peripheral edema. No clubbing, no cyanosis. Peripheral pulses are intact. - Labs CBC & Chem 7: 10/13/16 18:46 10/13/16 18:46 Labs: Abnormal Lab Results - Last 24 Hours (Table) 10/14/16 10/14/16 10/14/16 Range/Units 11:27 16:45 20:39 POC Glucose (mg/dL) 157 H 182 H 221 H (75-99) mg/dL 10/15/16 Range/Units 06:00 POC Glucose (mg/dL) 196 H (75-99) mg/dL Microbiology - Last 24 Hours (Table) 10/14/16 08:35 Gram Stain - Preliminary Sputum 10/13/16 18:46 Blood Culture - Preliminary Blood No Growth after 24 hours Assessment and Plan Plan: #1 Acute on chronic hypoxic respiratory failure, multifactorial, new bilateral upper lobe infiltrates suspect hospital-acquired pneumonia, acute exacerbation of severe oxygen dependent chronic obstructive pulmonary disease, chronic nicotine addiction. #2 Acute hospital-acquired bilateral upper lobe pneumonia. Secondary to pseudomonas aeruginosa. #3 Leukocytosis secondary to above. #4 Bronchoscopy with BAL on 10/12/2016 cultures are positive for Pseudomonas #5 Chronic and ongoing tobacco dependence. #6 Hyponatremia #7 Recent bacteremia with staph hominis in July 2016. #8 Hyperlipidemia. #9 History of sleep apnea syndrome. #10 Hypertension. #11 Degenerative joint disease. #12 Congenital single left kidney. #13 Cachexia #14 Polycythemia #15 Poor overall functional performance based on the above-mentioned multiple comorbidities and frequent hospitalizations. Recommendation: Continue Levaquin and Zosyn, continue bronchodilators and steroids, follow-up chest x-ray on Monday, if showing improvement consider discharge planning at that point. Time with Patient: Less than 30
[2016-10-15 12:04] LABS: Glucose,Whole Blood 203 mg/dL (75-99)
--- NOTE | 2016-10-15 13:36 | HP ---
CHIEF COMPLAINTS: Shortness of breath and cough. HISTORY OF PRESENT ILLNESS: This 66-year-old woman with past medical history of multiple medical problems including COPD, history of asthma, hypertension, hyperlipidemia, being followed by Dr. Cornejo in the outpatient setting was complaining of shortness of breath over the last several days. The patient apparently quit smoking about 4 weeks ago. The initial evaluation chest x-ray showed bilateral upper lobe pneumonia and patient admitted for further evaluation and treatment. There is no history of fever, rigors. No history of headache, loss of consciousness, seizures. Thoracic compression also suspected. PAST MEDICAL HISTORY: History of COPD, asthma, history of pneumonia, history of hypertension, hyperlipidemia, history of sleep apnea, advanced oxygen dependent COPD. Home medications are: 1. Norvasc 2.5 mg daily. 2. Melatonin 3 mg q.h.s. 3. Ativan 0.5 mg b.i.d. p.r.n. 4. Atrovent 0.5 mg q.i.d. 5. [place] 7.5 q.8 p.r.n. 6. Symbicort 160/4.5 mg 2 puffs b.i.d. 7. Ventolin inhalers. ALLERGIES: PNEUMOCOCCAL VACCINE, INFLUENZA. FAMILY HISTORY: History of myocardial infarction. SOCIAL HISTORY: Previous history of smoking. No current smoking or alcohol intake. REVIEW OF SYSTEMS: ENT: No diminished hearing or diminished vision. CARDIOVASCULAR: No angina. RESPIRATORY: As mentioned earlier. GI: No nausea. : No dysuria. NERVOUS SYSTEM: No numbness or weakness. ALLERGY/IMMUNOLOGY: No asthma or hayfever. MUSCULOSKELETAL: As mentioned earlier. HEMATOLOGY: No history of anemia. ENDOCRINE: No history of diabetes or hypothyroidism. CONSTITUTIONAL: As mentioned earlier. DERMATOLOGY: Negative. RHEUMATOLOGY: Negative. PSYCHIATRY: As mentioned earlier. PHYSICAL EXAMINATION: Alert, oriented x3. Pulse 104, blood pressure 139/66, respirations 26, temperature 97.1. Pulse ox 97% on 5-L. HEENT: Conjunctivae normal. Oral mucosa moist. NECK: No jugular venous distention. CARDIOVASCULAR: S1, S2. RESPIRATORY: Breath sounds diminished in the bases. Bilateral scattered rhonchi and crackles. ABDOMEN: Soft, nontender. LEGS: No edema. NERVOUS SYSTEM: Higher function as mentioned. Moves all four limbs. No focal motor deficits. LYMPHATIC: No lymph node palpable in the axillae, neck or groin. SKIN: No rash or bleeding. LABS: WBC 34.5, hemoglobin 10, sodium 128. ASSESSMENT: 1. Chronic obstructive pulmonary disease acute exacerbation with right upper lobe pneumonia, possibly Gram-negative with sepsis and as well as acute hypoxic respiratory failure. 2. Increased WBC. 3. Anemia normocytic. 4. History of nicotine dependence. 5. Advanced chronic obstructive pulmonary disease. 6. Chronic hypoxic respiratory failure. 7. Hyponatremia. 8. Hypoalbuminemia with severe protein calorie malnutrition. 9. History of asthma. 10. History of coronary artery disease. 11. History of bowel resection. 12. Multiple complex medical issues. RECOMMENDATIONS AND DISCUSSION: In this 66-year-old woman who presented with multiple complex medical issues, will monitor the patient closely. Continue with the broad-spectrum IV antibiotics. Will consult Dr. Wood. Otherwise bronchodilators, IV steroids. Guarded prognosis because of multiple complex medical issues.Further recommendations to follow. Will monitor the blood sugars also. [facility]
[2016-10-15 17:28] LABS: Glucose,Whole Blood 166 mg/dL (75-99)
--- NOTE | 2016-10-15 17:53 | P.PN ---
Subjective This is a 66-year-old female with advanced COPD chronic hypoxic respiratory failure comes in the hospital with progressive worsening of difficulty breathing over the last 2 days. Patient underwent a bronchoscopy for retained secretions [address] Carrero Patient comes in with complains of increased sputum production yellowish greenish in color. Is stable on 5 L supplement oxygen however states that she has auditory wheezing and progressive worsening of breathing difficulty Denies having fevers chills nausea vomiting diarrhea oral thrush. Patient is admitted to the hospital multiple times with similar complains In the emergency room patient was noted to have a bilateral upper lobe air space disease consistent with the pneumonia The time of my evaluation states that the her breathing is slightly better however is not back to her baseline States that she has recently quit smoking 10/15/2016 States to have a significant amount of cough with yellowish copious amounts of sputum No fevers chills nausea vomiting diarrhea is reported Objective - Vital Signs Vital signs: Vital Signs Temp 97 F L 10/15/16 16:25 Pulse 95 10/15/16 16:25 Resp 18 10/15/16 16:25 BP 145/69 10/15/16 16:25 Pulse Ox 97 10/15/16 16:25 Intake & Output 10/14/16 10/15/16 10/15/16 18:59 06:59 18:59 Intake Total 545 100 Output Total 300 300 Balance 245 -200 Weight 40.6 kg 42.1 kg Intake: Oral 545 100 Output: Urine 300 300 Other: Voiding Method Bedside Commode Bedside Commode # Voids 1 3 # Bowel Movements 0 3 - Exam Physical exam Gen. appearance oriented 3 in no distress cachectic Neck is supple no JVD Lungs diminished breath sounds expiratory wheezing noted diffuse rhonchi Heart S1-S2 heard regular rate and rhythm no murmurs appreciated Abdomen is soft nontender no organomegaly bowel sounds are intact Neurologically cranial nerves II-12 grossly intact no focal motor or sensory deficits noted Skin no abnormalities appreciated - Labs CBC & Chem 7: 10/13/16 18:46 10/13/16 18:46 Labs: Abnormal Lab Results - Last 24 Hours (Table) 10/14/16 10/15/16 10/15/16 Range/Units 20:39 06:00 11:50 POC Glucose (mg/dL) 221 H 196 H 203 H (75-99) mg/dL 07/08/17 Range/Units 17:05 POC Glucose (mg/dL) 166 H (75-99) mg/dL Microbiology - Last 24 Hours (Table) 10/14/16 08:35 Gram Stain - Preliminary Sputum Sputum Culture - Preliminary Emilie albicans 10/13/16 18:46 Blood Culture - Preliminary Blood No Growth after 24 hours Assessment and Plan Plan: 1 acute exacerbation of COPD secondary to bilateral healthcare acquired pneumonia Acute on chronic hypoxic hypercapnic respiratory failure severe protein calorie malnutrition hypertension GERD Objective sleep apnea History of tobacco use Plan Continue with IV steroids. Patient's d-dimer was elevated however patient has a pneumonic infiltrate patient's O2 requirement has not gone up hence clinically does not appear to be a pulmonary embolism Continue breathing treatments Repeat chest x-ray on Monday Continue ongoing care appreciate pulmonology recommendations
[2016-10-15 20:45] LABS: Glucose,Whole Blood 219 mg/dL (75-99)
[2016-10-15] MEDS: LEVOFLOXACIN 500 MG TAB PO SCH (21:46)
[2016-10-15] MEDS: MELATONIN 3 MG TABLET PO PRN (22:15)
[2016-10-15] MEDS: LORazepam 0.5 MG TAB PO PRN (22:15)
[2016-10-16] MEDS: HYDROcodone/APAP 7.5-325MG 1 EACH TAB PO PRN ×2 (05:12→17:41)
[2016-10-16 05:51] LABS: Glucose,Whole Blood 145 mg/dL (75-99)
[2016-10-16] MEDS: PIPERACILLIN-TAZOBACTAM 3.375 GM in DEXTROSE/WATER 1 50ML.BAG IVPB SCH ×3 (06:14→22:21)
[2016-10-16] MEDS: INSULIN LISPRO (humaLOG) 300 UNIT/3 ML VIAL SQ SCH ×4 (06:15→22:22)
[2016-10-16] MEDS: SYMBICORT 160-4.5 MCG INHALER INHALATION SCH ×2 (06:44→20:03)
[2016-10-16] MEDS: IPRATROPIUM-ALBUTEROL 3 ML NEB INHALATION PRN ×4 (06:44→20:03)
[2016-10-16] MEDS: methylPREDNISolone SOD SUCCI 125 MG/2 ML VIAL IV SCH ×4 (08:56→22:21)
[2016-10-16] MEDS: amLODIPine 2.5 MG TAB PO SCH (08:56)
[2016-10-16] MEDS: ENOXAPARIN 40 MG/0.4 ML SYRINGE SQ SCH (08:56)
--- NOTE | 2016-10-16 09:42 | P.PN ---
Subjective Principal diagnosis: Acute bilateral pneumonia This is a very pleasant 66-year-old female patient who follows with Dr. Sheffield as her primary care physician. She has a history of hyperlipidemia, gastroesophageal reflux disease, degenerative joint disease, sleep apnea syndrome, coronary artery disease, hypertension, glaucoma. She also has significant oxygen dependent chronic obstructive pulmonary disease. She has been maintained on Symbicort and Ventolin inhalers along with albuterol updraft treatments. Unfortunately the patient does continue to smoke despite her multiple readmissions to the hospital for COPD exacerbations. She was last discharged from here on 09/10/2016. She had done well for approximately one month. She was seen by Dr. Mccollum in the office with continued symptoms and had undergone an outpatient bronchoscopy with BAL on 10/12/2016. She states she was fine for approximately 24 hours and she developed increasing shortness of breath cough and congestion and presented here to the emergency room yesterday for the same. She also noted some progressive weakness and increased swelling of her lower extremities. Her cough was productive with faint yellow sputum. No chest pain, palpitations, lightheadedness or dizziness. Her initial white count was 35.4. Hemoglobin 10.0, platelet count 501,000. Sodium 128, bicarb 19. Her chest x-ray does reveal new bilateral upper lobe infiltrates suspicious for hospital-acquired pneumonia. She has been initiated on Zosyn and Levaquin along with the bronchodilators, Symbicort and IV Solu-Medrol. She is seen today in consultation on the regular medical floor. She is awake and alert. She is quite dyspneic even on minimal conversation. She is maintaining O2 saturations in the mid 90s on 5 L/m per nasal cannula. Currently afebrile. Hemodynamically stable. Patient was reevaluated today on 10/15/2016, feels better, breathing easier, less cough and less wheezing less shortness of breath, remains on antibiotics for bilateral right and left upper lobe pneumonia. Sputum cultures are pending, however the last bronchoscopy revealed Pseudomonas aeruginosa, hence I will go ahead and make sure that she has adequate coverage for possible Pseudomonas. This is sensitive to most antibiotics tested including Levaquin and Zosyn as well as cefepime and ceftazidime as well as ciprofloxacin. Patient is presently on Levaquin and Zosyn which is an excellent coverage from the very beginning. Her WBC count was quite elevated couple of days ago, overall the patient is making a significant clinical improvement over the last 2 days. Reevaluated today on 10/16/2016, patient is feeling much better, breathing a lot easier. Less cough and less wheezing less shortness of breath. Hence I recommended a follow-up chest x-ray to be done in a.m., in the meantime we'll continue treatment for Pseudomonas pneumonia. And treatment for COPD. Objective - Vital Signs Vital signs: Vital Signs Temp 97.2 F L 10/16/16 09:00 Pulse 74 10/16/16 09:00 Resp 18 10/16/16 09:00 BP 154/73 10/16/16 09:00 Pulse Ox 100 10/16/16 09:00 Intake & Output 10/15/16 10/16/16 10/16/16 18:59 06:59 18:59 Intake Total 100 640 Output Total 300 600 Balance -200 40 Weight 41.1 kg Intake: IV 240 0.9 240 Intake, IV Titration 100 Amount Piperacillin-Tazobactam 3 100 .375 gm In Dextrose/Water 1 50ml.bag @ 12.5 mls/hr IVPB Q8H [facility] Rx#: [id number] Oral 100 300 Output: Urine 300 600 Other: Voiding Method Bedside Commode Bedside Commode Bedside Commode # Voids 2 - Exam GENERAL EXAM: Frail, cachectic. Alert, fairly comfortable. HEAD: Normocephalic. EYES: Normal reaction of pupils, equal size. NOSE: Clear with pink turbinates. THROAT: No erythema or exudates. NECK: No masses, no JVD. CHEST: No chest wall deformity. LUNGS: Diminished breath sound bilaterally, no crackles or rhonchi or wheezes today. CVS: S1 and S2 normal with no audible murmurs, regular rhythm. ABDOMEN: No hepatosplenomegaly, normal bowel sounds, no guarding or rigidity. SPINE: Kyphoscoliosis SKIN: No rashes, areas of ecchymosis. CENTRAL NERVOUS SYSTEM: No focal deficits, tone is normal in all 4 extremities. Extremities: There is no peripheral edema. No clubbing, no cyanosis. Peripheral pulses are intact. - Labs CBC & Chem 7: 10/13/16 18:46 10/13/16 18:46 Labs: Abnormal Lab Results - Last 24 Hours (Table) 10/15/16 10/15/16 10/15/16 Range/Units 11:50 17:05 20:43 POC Glucose (mg/dL) 203 H 166 H 219 H (75-99) mg/dL 10/16/16 Range/Units 05:50 POC Glucose (mg/dL) 145 H (75-99) mg/dL Microbiology - Last 24 Hours (Table) 10/14/16 08:35 Gram Stain - Final Sputum Sputum Culture - Final Emilie albicans 10/13/16 18:46 Blood Culture - Preliminary Blood No Growth after 48 hours Assessment and Plan Plan: #1 Acute on chronic hypoxic respiratory failure, multifactorial, new bilateral upper lobe infiltrates suspect hospital-acquired pneumonia, acute exacerbation of severe oxygen dependent chronic obstructive pulmonary disease, chronic nicotine addiction. #2 Acute hospital-acquired bilateral upper lobe pneumonia. Secondary to pseudomonas aeruginosa. #3 Leukocytosis secondary to above. #4 Bronchoscopy with BAL on 10/12/2016 cultures are positive for Pseudomonas #5 Chronic and ongoing tobacco dependence. #6 Hyponatremia #7 Recent bacteremia with staph hominis in July 2016. #8 Hyperlipidemia. #9 History of sleep apnea syndrome. #10 Hypertension. #11 Degenerative joint disease. #12 Congenital single left kidney. #13 Cachexia #14 Polycythemia #15 Poor overall functional performance based on the above-mentioned multiple comorbidities and frequent hospitalizations. Recommendation: Continue Levaquin and Zosyn, continue bronchodilators and steroids, follow-up chest x-ray in the next 24 hours, if it shows significant improvement, patient could be considered for discharge planning tomorrow. And follow-up on outpatient basis in our office. Time with Patient: Less than 30
[2016-10-16 12:07] LABS: Glucose,Whole Blood 180 mg/dL (75-99)
--- NOTE | 2016-10-16 15:53 | P.PN ---
Subjective This is a 66-year-old female with advanced COPD chronic hypoxic respiratory failure comes in the hospital with progressive worsening of difficulty breathing over the last 2 days. Patient underwent a bronchoscopy for retained secretions [address] Carrero Patient comes in with complains of increased sputum production yellowish greenish in color. Is stable on 5 L supplement oxygen however states that she has auditory wheezing and progressive worsening of breathing difficulty Denies having fevers chills nausea vomiting diarrhea oral thrush. Patient is admitted to the hospital multiple times with similar complains In the emergency room patient was noted to have a bilateral upper lobe air space disease consistent with the pneumonia The time of my evaluation states that the her breathing is slightly better however is not back to her baseline States that she has recently quit smoking 10/15/2016 States to have a significant amount of cough with yellowish copious amounts of sputum No fevers chills nausea vomiting diarrhea is reported 10/16/16 continues to have a cough with sputum production no fevers, chills, nausea, vomiting , diarrhea Objective - Vital Signs Vital signs: Vital Signs Temp 97.2 F L 10/16/16 09:00 Pulse 86 10/16/16 11:57 Resp 16 10/16/16 11:58 BP 144/61 10/16/16 11:57 Pulse Ox 98 10/16/16 11:57 Intake & Output 10/15/16 10/16/16 10/16/16 18:59 06:59 18:59 Intake Total 100 640 Output Total 300 600 Balance -200 40 Weight 41.1 kg Intake: IV 240 0.9 240 Intake, IV Titration 100 Amount Piperacillin-Tazobactam 3 100 .375 gm In Dextrose/Water 1 50ml.bag @ 12.5 mls/hr IVPB Q8H [facility] Rx#: [id number] Oral 100 300 Output: Urine 300 600 Other: Voiding Method Bedside Commode Bedside Commode Bedside Commode # Voids 2 3 - Exam Physical exam Gen. appearance oriented 3 in no distress cachectic Neck is supple no JVD Lungs diminished breath sounds expiratory wheezing noted diffuse rhonchi Heart S1-S2 heard regular rate and rhythm no murmurs appreciated Abdomen is soft nontender no organomegaly bowel sounds are intact Neurologically cranial nerves II-12 grossly intact no focal motor or sensory deficits noted Skin no abnormalities appreciated - Labs CBC & Chem 7: 10/13/16 18:46 10/13/16 18:46 Labs: Abnormal Lab Results - Last 24 Hours (Table) 10/15/16 10/15/16 10/16/16 Range/Units 17:05 20:43 05:50 POC Glucose (mg/dL) 166 H 219 H 145 H (75-99) mg/dL 10/16/16 Range/Units 11:55 POC Glucose (mg/dL) 180 H (75-99) mg/dL Microbiology - Last 24 Hours (Table) 10/14/16 08:35 Gram Stain - Final Sputum Sputum Culture - Final Emilie albicans 10/13/16 18:46 Blood Culture - Preliminary Blood No Growth after 48 hours Assessment and Plan Plan: 1 acute exacerbation of COPD secondary to bilateral healthcare acquired pneumonia Acute on chronic hypoxic hypercapnic respiratory failure severe protein calorie malnutrition hypertension GERD Objective sleep apnea History of tobacco use Plan Continue with IV steroids. breathing tx Continue breathing treatments Continue ongoing care possible dc home phuong
[2016-10-16 17:00] LABS: Glucose,Whole Blood 263 mg/dL (75-99)
[2016-10-16] MEDS: LORazepam 0.5 MG TAB PO PRN (19:47)
[2016-10-16 20:48] LABS: Glucose,Whole Blood 149 mg/dL (75-99)
[2016-10-16] MEDS: LEVOFLOXACIN 500 MG TAB PO SCH (22:22)
[2016-10-16] MEDS: MELATONIN 3 MG TABLET PO PRN (22:46)
[2016-10-17 05:40] LABS: Glucose,Whole Blood 128 mg/dL (75-99)
[2016-10-17] MEDS: IPRATROPIUM-ALBUTEROL 3 ML NEB INHALATION PRN ×3 (07:16→15:37)
[2016-10-17] MEDS: SYMBICORT 160-4.5 MCG INHALER INHALATION SCH ×2 (07:16→19:49)
[2016-10-17] MEDS: INSULIN LISPRO (humaLOG) 300 UNIT/3 ML VIAL SQ SCH ×3 (07:30→17:13)
[2016-10-17] MEDS: LORazepam 0.5 MG TAB PO PRN (07:46)
[2016-10-17] MEDS: ENOXAPARIN 40 MG/0.4 ML SYRINGE SQ SCH (07:47)
[2016-10-17] MEDS: PIPERACILLIN-TAZOBACTAM 3.375 GM in DEXTROSE/WATER 1 50ML.BAG IVPB SCH ×2 (07:47→13:58)
[2016-10-17] MEDS: methylPREDNISolone SOD SUCCI 125 MG/2 ML VIAL IV SCH ×3 (07:47→17:14)
[2016-10-17] MEDS: amLODIPine 2.5 MG TAB PO SCH (07:47)
[2016-10-17] MEDS: HYDROcodone/APAP 7.5-325MG 1 EACH TAB PO PRN (08:18)
[2016-10-17 08:44] VITALS: TEMP 97.1
--- NOTE | 2016-10-17 08:56 | XR ---
EXAMINATION TYPE: XR chest 1V portable DATE OF EXAM: 10/17/2016 CLINICAL HISTORY: Difficulty breathing and pneumonia progress study. TECHNIQUE: Single AP portable upright view of the chest is obtained. COMPARISON: Chest x-ray from 4 days earlier and older x-rays back through January 2016 FINDINGS: Hyperinflation with fibrosis particularly bilateral upper lungs remains present. Increased opacity upper lungs also is again seen. There is apical pleural thickening bilaterally. No large ple ural effusion or pneumothorax is present. Anterior fusion plate and cervical spine is partially image d. Surgical hardware lumbar spine is partially imaged. IMPRESSION: Chronic fibrosis with upper lung opacities remaining present, suspect resolving right api rashawn atelectasis and/or infiltrate. Slow-growing spiculated opacity left upper lobe is noted, could re flect acute infiltrate. Advise PET/CT correlation if does not resolve or correlate clinically.
[2016-10-17 11:32] LABS: Glucose,Whole Blood 92 mg/dL (75-99)
[2016-10-17 12:43] VITALS: RESP 18
[2016-10-17 12:54] VITALS: BMI 16.7
[2016-10-17 16:49] LABS: Glucose,Whole Blood 204 mg/dL (75-99)
--- NOTE | 2016-10-17 17:28 | P.DS ---
Providers Date of admission: 10/13/16 22:06 Attending physician: Olu Reyes MD Consults: 10/13/16 22:06 Consult Physician Routine Consulting Provider: Kamran Carrero Consult Reason/Comments: pneumonia, copd Do you want consulting provider notified?: Yes Primary care physician: Stated None Hospital Course: This is a 66-year-old female with advanced COPD chronic hypoxic respiratory failure comes in the hospital with progressive worsening of difficulty breathing over the last 2 days. Patient underwent a bronchoscopy for retained secretions [address] Carrero Patient comes in with complains of increased sputum production yellowish greenish in color. Is stable on 5 L supplement oxygen however states that she has auditory wheezing and progressive worsening of breathing difficulty Denies having fevers chills nausea vomiting diarrhea oral thrush. Patient is admitted to the hospital multiple times with similar complains In the emergency room patient was noted to have a bilateral upper lobe air space disease consistent with the pneumonia The time of my evaluation states that the her breathing is slightly better however is not back to her baseline States that she has recently quit smoking 10/15/2016 States to have a significant amount of cough with yellowish copious amounts of sputum No fevers chills nausea vomiting diarrhea is reported 10/16/16 continues to have a cough with sputum production no fevers, chills, nausea, vomiting , diarrhea 10/17/16 doing well continues to have cough with yellowish sputum production no fevers, chills reported - Exam Physical exam Gen. appearance oriented 3 in no distress cachectic Neck is supple no JVD Lungs diminished breath sounds expiratory wheezing noted diffuse rhonchi Heart S1-S2 heard regular rate and rhythm no murmurs appreciated Abdomen is soft nontender no organomegaly bowel sounds are intact Neurologically cranial nerves II-12 grossly intact no focal motor or sensory deficits noted Skin no abnormalities appreciated Assessment and Plan Plan: 1 acute exacerbation of COPD secondary to bilateral healthcare acquired pneumonia Acute on chronic hypoxic hypercapnic respiratory failure severe protein calorie malnutrition hypertension GERD Objective sleep apnea History of tobacco use dc home on prednisone 50mg till pt sees dr carrero cxr was reviewed continue levaquin Patient Condition at Discharge: Poor Plan - Discharge Summary New Discharge Prescriptions: New Levofloxacin [Levaquin] 500 mg PO HS #5 tab predniSONE 50 mg PO DAILY #10 tab Continue Budesonide-Formot 160-4.5 Mcg [Symbicort 160-4.5 Mcg Inhaler] 2 puff INHALATION RT-BID Melatonin 3 mg PO HS PRN PRN Reason: Insomnia HYDROcodone/APAP 7.5-325MG [[place] 7.5-325] 1 tab PO Q8H PRN PRN Reason: Pain Albuterol Nebulized [Ventolin Nebulized] 2.5 mg INHALATION RT-QID #0 Ipratropium Nebulized [Atrovent Nebulized] 0.5 mg INHALATION RT-QID #0 amLODIPine [Norvasc] 2.5 mg PO DAILY LORazepam [Ativan] 0.5 mg PO BID PRN PRN Reason: Anxiety/Insomnia Albuterol Inhaler [Ventolin Hfa Inhaler] 1 - 2 puff INHALATION RT-Q4H PRN #1 PRN Reason: Dyspnea Discharge Medication List Budesonide-Formot 160-4.5 Mcg [Symbicort 160-4.5 Mcg Inhaler] 2 puff INHALATION RT-BID 10/12/15 [History] Melatonin 3 mg PO HS PRN 05/06/16 [History] HYDROcodone/APAP 7.5-325MG [[place] 7.5-325] 1 tab PO Q8H PRN 06/12/16 [History] Albuterol Nebulized [Ventolin Nebulized] 2.5 mg INHALATION RT-QID #0 06/13/16 [ Rx] Ipratropium Nebulized [Atrovent Nebulized] 0.5 mg INHALATION RT-QID #0 [Rx] amLODIPine [Norvasc] 2.5 mg PO DAILY 07/09/16 [History] LORazepam [Ativan] 0.5 mg PO BID PRN 09/05/16 [History] Albuterol Inhaler [Ventolin Hfa Inhaler] 1 - 2 puff INHALATION RT-Q4H PRN #1 [Rx] Levofloxacin [Levaquin] 500 mg PO HS #5 tab 10/17/16 [Rx] predniSONE 50 mg PO DAILY #10 tab 10/17/16 [Rx] Follow up Appointment(s)/Referral(s): Kamran Carrero DO [Doctor of Osteopathic Medicine] - 1 Week Discharge Disposition: HOME SELF-CARE
[2016-10-17 17:46] VITALS: BP 107/64; PULSE 108
--- NOTE | 2016-10-18 09:39 | PN ---
This is a 66-year-old female who is status post pneumonia following bronchoscopy. The patient had upper lobe infiltrates and I believe she grew out Pseudomonas aeruginosa from her bronch wash. She has history of chronic and ongoing tobacco dependence, hyperlipidemia, hypertension, DJD and a congenital single left kidney. She also suffers from polycythemia secondary to chronic hypoxemia. Again, she is feeling much better and possibly could be discharge home. Bronchoscopy was performed by myself on October 12. Current vital signs include a temperature of just 97.1, heart rate 80, respiratory 20, blood pressure 148/73, mean 98, five liter saturation 97%. Appears in no acute distress. HEENT examination is grossly unremarkable. Mucous membranes are moist. No oral lesion. NECK: Supple. Full range of motion. No adenopathy or thyromegaly. Cardiovascular examination reveals regular rhythm and rate. Heart sounds are distant. S1 and S2 normal. Lungs reveal a few scattered rhonchi. There are a few crackles noted. No expiratory wheezes, but there is prolongation. ABDOMEN: Soft. Bowel sounds are heard. There are no masses or tenderness. Extremities are intact. No cyanosis, clubbing or edema. Labs are reviewed. Nothing new from today. The broncho wash did reveal evidence of Pseudomonas. Chest x-ray dated October 17 shows resolving infiltrates. There are some upper lobe fibrotic changes. There is also slow growing spiculated opacity left upper lobe. ASSESSMENT: 1. Chronic obstructive pulmonary disease exacerbation complicated by Pseudomonas aeruginosa pneumonia. 2. History of ongoing tobacco use from nicotine addiction. 3. Status post recent bronchoscopy October 12. 4. Chronic hypoxemic respiratory failure. 5. Chronic and ongoing tobacco dependence. 6. Hyponatremia. 7. Hyperlipidemia. 8. History of sleep apnea syndrome. 9. Hypertension. 10. Degenerative joint disease. 11. Congenital single left kidney. 12. Cachexia. 13. Polycythemia. PLAN: Will continue to follow. From our perspective, the patient could be discharged home today. No additional recommendations were made. She does need a rescue inhaler. She will see me in the office in a couple of weeks. MI
== END 2016-10-17 19:20 | disposition home or self-care (01) | DRG 190 ==
LOC: EC 18:31 → 6SEL 22:06
PROVIDERS: ADMIT Internal Medicine; ATTEND Internal Medicine
DX: J44.0 Chronic obstructive pulmonary disease with (acute) lower respiratory infection (principal); J15.1 Pneumonia due to Pseudomonas; J96.21 Acute and chronic respiratory failure with hypoxia; E43 Unspecified severe protein-calorie malnutrition; Q60.0 Renal agenesis, unilateral; R64 Cachexia; D75.1 Secondary polycythemia; Z99.81 Dependence on supplemental oxygen; J96.22 Acute and chronic respiratory failure with hypercapnia; E87.1 Hypo-osmolality and hyponatremia; J44.1 Chronic obstructive pulmonary disease with (acute) exacerbation; Y95 Nosocomial condition; F17.200 Nicotine dependence, unspecified, uncomplicated; K21.9 Gastro-esophageal reflux disease without esophagitis; E78.5 Hyperlipidemia, unspecified; I10 Essential (primary) hypertension; I25.2 Old myocardial infarction; D64.9 Anemia, unspecified; I25.10 Atherosclerotic heart disease of native coronary artery without angina pectoris; M19.91 Primary osteoarthritis, unspecified site; H40.9 Unspecified glaucoma; G47.33 Obstructive sleep apnea (adult) (pediatric); Z87.01 Personal history of pneumonia (recurrent); Z85.828 Personal history of other malignant neoplasm of skin; Z87.11 Personal history of peptic ulcer disease; Z90.710 Acquired absence of both cervix and uterus; Z90.49 Acquired absence of other specified parts of digestive tract; Z98.1 Arthrodesis status; Z98.42 Cataract extraction status, left eye; Z98.41 Cataract extraction status, right eye; Z79.51 Long term (current) use of inhaled steroids; Z79.899 Other long term (current) drug therapy; Z88.7 Allergy status to serum and vaccine; Z82.5 Family history of asthma and other chronic lower respiratory diseases
CPT/HCPCS: 36415; 71010; 71020; 80053; 82550; 82553; 83036; 83880; 84484; 85025; 85379; 85610; 85730; 87040; 87070; 87205; 93005; 94640; 94760; 96361; 96365; 96375; 99285

== ENCOUNTER 2016-11-02 10:38 | Day surgery (SDC) | payer MEDICARE, OTHER ==
[2016-11-02 11:40] VITALS: TEMP 97.6
[2016-11-02] MEDS ORDERED: LACTATED RINGERS 1,000 ML IV SCH (11:57)
[2016-11-02] MEDS ORDERED: LIDOCAINE 1% 20 ML VIAL (10MG/ML) FOR IV START INTRADERMA PRN (11:57)
[2016-11-02 12:07] LABS: Glucose,Whole Blood 101 mg/dL (75-99)
[2016-11-02] MEDS ORDERED: PROPOFOL 10 MG/ML 20 ML VIAL IV ONE (13:35)
--- NOTE | 2016-11-02 13:44 | P.PCN ---
Date of Procedure: 11/02/16 Preoperative Diagnosis: Postoperative Diagnosis: Procedure(s) Performed: BRIEF HISTORY: Patient is a 66-year-old, pleasant, white female, scheduled for an upper endoscopy as a part of evaluation of epigastric pain, dysphagia and odynophagia for the last 1 week duration. She has been losing weight since onset of the symptoms. PROCEDURE PERFORMED: Esophagogastroduodenoscopy with biopsy. PREOPERATIVE DIAGNOSIS: Epigastric pain, dysphagia and odynophagia for the duration. IV sedation per anesthesia. PROCEDURE: After informed consent was obtained, the patient was brought into the endoscopy unit. IV sedation was administered by Anesthesia under continuous monitoring. Initially the Olympus GIF-140 video endoscope was inserted into the mouth. Esophagus intubated without any difficulty. It was gradually advanced into the stomach and duodenum and carefully examined. The bulb and the second part of the duodenum appeared normal. The scope at this time was withdrawn to the stomach, adequately insufflated with air, and upon careful examination, mucosa of the antrum, body, cardia and the fundus appeared normal. The scope was then withdrawn into the esophagus. The GE junction was located at 36 cm from the incisors. There were linear erosions, superficial ulcerations and friability with exudate noted in the distal esophagus extending from 30-35 cm from the incisors status post biopsies to rule out infectious esophagitis. The rest of the esophagus appeared normal and the patient tolerated the procedure well. IMPRESSION: 1. Severe distal esophagitis with mucosal friability, erosions and superficial ulcerations consistent with reflux esophagitis, status post biopsy to rule out infectious esophagitis. 2. Small hiatal hernia. RECOMMENDATIONS: The findings of this examination were discussed with the patient as well as her family. She was advised to follow with the biopsy results. She was given a prescription for Prilosec 20 mg twice daily to be taken half hour before breakfast and dinner and follow antireflux measures. Implants: Indications for Procedure: Operative Findings: Description of Procedure:
[2016-11-02] MEDS ORDERED: MAG HYDROX/AL HYDROX/SIMETH 30 ML CUP PO STA (13:51)
[2016-11-02] MEDS ORDERED: PANTOPRAZOLE 40 MG TABLET PO STA ×2 (13:53→13:55)
[2016-11-02 14:17] VITALS: RESP 16
[2016-11-02 15:03] VITALS: BP 136/59; PULSE 86
== END 2016-11-02 15:16 | disposition home or self-care (01) ==
LOC: ORWHC2ENDO 10:38
PROVIDERS: ATTEND Internal Medicine Gastroenterology
DX: K21.0 Gastro-esophageal reflux disease with esophagitis (principal); K44.9 Diaphragmatic hernia without obstruction or gangrene; I10 Essential (primary) hypertension; E78.5 Hyperlipidemia, unspecified; I25.2 Old myocardial infarction; J44.9 Chronic obstructive pulmonary disease, unspecified; Z87.891 Personal history of nicotine dependence; G47.33 Obstructive sleep apnea (adult) (pediatric); Z99.89 Dependence on other enabling machines and devices; Z99.81 Dependence on supplemental oxygen; Z79.891 Long term (current) use of opiate analgesic; Z79.52 Long term (current) use of systemic steroids; Z79.899 Other long term (current) drug therapy; Z88.7 Allergy status to serum and vaccine
CPT/HCPCS: 88305; 88312; 43239; J2704

== ENCOUNTER 2016-12-12 16:22 | Emergency (ER) | payer MEDICARE, OTHER ==
[2016-12-12] MEDS ORDERED: SODIUM CHLORIDE 0.9% 500 ML IV STA (16:32)
[2016-12-12] MEDS ORDERED: IPRATROPIUM-ALBUTEROL 3 ML NEB INHALATION STA (16:33)
[2016-12-12] MEDS ORDERED: DIPH,PERTUS(ACELL)TETVAC-LF 0.5 ML VIAL IM ONE (16:45)
--- NOTE | 2016-12-12 16:50 | ED ---
Fall HPI - General Source: patient Mode of arrival: ambulatory <Cecilia Jurado - Last Filed: 12/12/16 21:15> <Garrett Barnes - Last Filed: 12/13/16 00:25> - General Chief Complaint: Fall Stated Complaint: Fall Time Seen by Provider: 12/12/16 16:24 - History of Present Illness Initial Comments: Patient is a 66-year-old female who presents to the ER via EMS for evaluation after a fall. Patient reports that she has been drinking beer today, she states that she has had 3 beers. Patient reports that she was walking with her walker when she lost her balance and fell forward striking her head. Patient is unsure if she lost consciousness. Patient reports she's been ambulatory since the fall. Patient is unsure when her last tetanus vaccination was. Patient also complains of chronic shortness of breath. She states that she currently cannot use her CPAP machine and that her insurance will not pay for her for another year. (Cecilia Jurado) - Related Data Home Medications Medication Instructions Recorded Confirmed Budesonide-Formot 160-4.5 Mcg 2 puff INHALATION RT-BID 10/12/15 12/12/16 [Symbicort 160-4.5 Mcg Inhaler] Melatonin 3 mg PO HS PRN 05/06/16 12/12/16 HYDROcodone/APAP 7.5-325MG [[place] 1 tab PO Q8H PRN 06/12/16 12/12/16 7.5-325] amLODIPine [Norvasc] 2.5 mg PO DAILY 07/09/16 12/12/16 LORazepam [Ativan] 1 mg PO DAILY 12/12/16 12/12/16 predniSONE 5 mg PO DAILY 12/12/16 12/12/16 Previous Rx's Medication Instructions Recorded Albuterol Nebulized [Ventolin 2.5 mg INHALATION RT-QID #0 06/13/16 Nebulized] Ipratropium Nebulized [Atrovent 0.5 mg INHALATION RT-QID #0 06/13/16 Nebulized] Albuterol Inhaler [Ventolin Hfa 1 - 2 puff INHALATION RT-Q4H PRN 10/17/16 Inhaler] #1 Azithromycin 250 mg PO DAILY #5 tab 12/12/16 Azithromycin [Zithromax Z-pack] 250 mg PO DIRECTED #6 tab 12/13/16 Allergies Allergy/AdvReac Type Severity Reaction Status Date / Time pneumococcal vaccine Allergy Unknown Unknown Verified 12/12/16 18:06 Influenza Virus Vaccines Allergy Unknown Verified 12/12/16 18:06 Review of Systems ROS Other: All systems not noted in ROS Statement are negative. Constitutional: Denies: fever Eyes: Denies: eye pain, vision change ENT: Denies: throat pain Respiratory: Reports: cough, dyspnea, wheezes, other (Poorly controlled COPD) Cardiovascular: Reports: chest pain, palpitations, dyspnea on exertion ( Associated with COPD) Endocrine: Reports: fatigue Gastrointestinal: Denies: abdominal pain, nausea, vomiting Genitourinary: Denies: urgency, dysuria Musculoskeletal: Denies: back pain Skin: Reports: other (Skin tears on bilateral extremities) Neurological: Denies: headache Psychiatric: Reports: anxiety. Denies: suicidal thoughts Hematological/Lymphatic: Reports: easy bleeding, easy bruising <Cecilia Jurado - Last Filed: 12/12/16 21:15> ROS Other: All systems not noted in ROS Statement are negative. <Garrett Barnes - Last Filed: 12/13/16 00:25> ROS Statement: Those systems with pertinent positive or pertinent negative responses have been documented in the HPI. Past Medical History Past Medical History: Asthma, Cancer, COPD, Eye Disorder, GERD/Reflux, Hyperlipidemia, Hypertension, Myocardial Infarction (AK), Osteoarthritis (OA), Pneumonia, Respiratory Disorder, Sleep Apnea/CPAP/BIPAP Additional Past Medical History / Comment(s): Advanced oxygen-dependent COPD with chronic hypoxic respiratory failure and with multiple hospitalization for COPD exacerbations, born with a single left kidney, previous AK, PUD, bilateral glaucoma, skin cancer, previous history of bowel obstruction, worked [employer] at the age of 7yrs, past L arm fx and R patellar fx with surgery, edentulous. Last Myocardial Infarction Date:: 2011? History of Any Multi-Drug Resistant Organisms: None Reported Past Surgical History: Appendectomy, Back Surgery, Bowel Resection, Section, Hysterectomy, Orthopedic Surgery Additional Past Surgical History / Comment(s): 10/28/15 anterior cervical decompression fusion C3-4,C4-5,C5-6 with NIM cord monitoring, BACK SURGERY lami / FUSION/discectomy, manolo CATARACT SURGERY, LASER EYE SURGERY FOR GLAUCOMA., RIGHT KNEE SURGERY(fx kneecap). Neck surgery, has bars and screws in the neck, bronchoscope Past Anesthesia/Blood Transfusion Reactions: No Reported Reaction Past Psychological History: No Psychological Hx Reported, Anxiety Smoking Status: Current every day smoker Past Alcohol Use History: Occasional Past Drug Use History: None Reported - Past Family History Mother Family Medical History: Myocardial Infarction (AK) Additional Family Medical History / Comment(s): Mother had a AK in her 50's Father Family Medical History: No Reported History Additional Family Medical History / Comment(s): FORM OLD AGE Brother(s) Family Medical History: Asthma, COPD Sister(s) Family Medical History: Asthma, COPD <Cecilia Jurado - Last Filed: 12/12/16 21:15> General Exam Limitations: altered mental status General appearance: alert, appears intoxicated, anxious, cachectic, other ( appears older than stated age) Head exam: Present: normocephalic Eye exam: Present: normal appearance, PERRL ENT exam: Present: normal exam, mucous membranes moist, other (endentulous ) Neck exam: Present: normal inspection. Absent: tenderness, meningismus, lymphadenopathy Respiratory exam: Present: wheezes (in all lung reynolds) Cardiovascular Exam: Present: regular rate, tachycardia GI/Abdominal exam: Present: soft. Absent: distended, tenderness Rectal exam: Present: deferred Extremities exam: Present: normal inspection, full ROM, normal capillary refill. Absent: tenderness, pedal edema, joint swelling, calf tenderness Back exam: Present: normal inspection Neurological exam: Present: alert, oriented X3 Psychiatric exam: Present: anxious Skin exam: Present: warm, dry, abrasion, other (skin tear on left elbow, left proximal arm, bridge of nose) <Cecilia Jurado - Last Filed: 12/12/16 21:15> Course <Cecilia Jurado - Last Filed: 12/12/16 21:15> <Garrett Barnes - Last Filed: 12/13/16 00:25> Vital Signs 12/12/16 12/12/16 12/12/16 16:29 17:06 17:15 Pulse Rate 108 H 92 100 Respiratory 18 Rate Blood Pressure 118/80 O2 Sat by Pulse 96 Oximetry 12/12/16 12/12/16 12/12/16 18:33 20:28 22:24 Pulse Rate 93 102 H 100 Respiratory 18 18 18 Rate Blood Pressure 103/60 102/65 108/59 O2 Sat by Pulse 100 100 100 Oximetry - Reevaluation(s) Reevaluation #1: Patient resting comfortably, cervical collar removed. Patient is eating 12/12 18:46 (Cecilia Jurado) Medical Decision Making - Lab Data Result diagrams: 12/12/16 16:53 12/12/16 16:53 - EKG Data EKG shows normal: sinus rhythm Rate: normal <Cecilia Jurado - Last Filed: 12/12/16 21:15> - Lab Data Result diagrams: 12/12/16 16:53 12/12/16 16:53 <Garrett Barnes - Last Filed: 12/13/16 00:25> - Medical Decision Making Patient seen and evaluated History obtained from EMS and patient Physical exam reveals a patient in a cervical collar, skin tear to the bridge of the nose, skin tear on right elbow and the left elbow and left proximal arm Patient believes is a mechanical trip and fall, per EMS it was witnessed to be a mechanical trip and fall Patient complaining of shortness of breath, has poorly controlled COPD, states that she cannot get insurance to cover her CPAP mask therefore is been without CPAP at home Labs and imaging were ordered tdap was ordered duoneb for COPD Wheezing improved after DuoNeb CT head and cervical spine without acute injury, redemonstration of pneumonia Antibiotics ordered for community-acquired pneumonia IV fluids infusing Regular diet ordered Anemia at baseline Patient tolerating regular diet, patient awake and alert. Reports feeling well, asking to be discharged. Advised patient that if she can get a ride home she can be discharged. However, patient cannot get a ride home, she states she will need to call a cab. I advised the patient she needs to be sober to take a cab home. Patient agreeable. Patient care signed out to Dr. Barnes, patient to be re-evalauted for sobriety at 11pm (Cecilia Jurado) - Lab Data Lab Results 12/12/16 12/12/16 12/12/16 Range/Units 16:53 16:53 16:53 WBC (3.8-10.6) k/uL RBC (3.80-5.40) m/uL Hgb (11.4-16.0) gm/dL Hct (34.0-46.0) % MCV (80.0-100.0) fL MCH (25.0-35.0) pg MCHC (31.0-37.0) g/dL RDW (11.5-15.5) % Plt Count (150-450) k/uL Neutrophils % % Lymphocytes % % Monocytes % % Eosinophils % % Basophils % % Neutrophils # (1.3-7.7) k/uL Lymphocytes # (1.0-4.8) k/uL Monocytes # (0-1.0) k/uL Eosinophils # (0-0.7) k/uL Basophils # (0-0.2) k/uL Anisocytosis PT (9.0-12.0) sec INR (<1.2) APTT (22.0-30.0) sec Sodium 135 L (137-145) mmol/L Potassium 4.0 (3.5-5.1) mmol/L Chloride 100 (98-107) mmol/L Carbon Dioxide 19 L (22-30) mmol/L Anion Gap 16 mmol/L BUN 12 (7-17) mg/dL Creatinine 0.62 (0.52-1.04) mg/dL Est GFR (MDRD) Af Amer >60 (>60 ml/min/1.73 sqM) Est GFR (MDRD) Non-Af >60 (>60 ml/min/1.73 sqM) Glucose 86 (74-99) mg/dL Calcium 9.1 (8.4-10.2) mg/dL Total Bilirubin 0.2 (0.2-1.3) mg/dL AST 14 (14-36) U/L ALT 26 (9-52) U/L Alkaline Phosphatase 64 (38-126) U/L Total Creatine Kinase 55 (30-135) U/L CK-MB (CK-2) 0.8 (0.0-2.4) ng/mL CK-MB (CK-2) Rel Index 1.5 Troponin I <0.012 (0.000-0.034) ng/mL Total Protein 7.4 (6.3-8.2) g/dL Albumin 4.0 (3.5-5.0) g/dL Urine Color Urine Appearance (Clear) Urine pH (5.0-8.0) Ur Specific [place] (1.001-1.035) Urine Protein (Negative) Urine Glucose (UA) (Negative) Urine Ketones (Negative) Urine Blood (Negative) Urine Nitrite (Negative) Urine Bilirubin (Negative) Urine Urobilinogen (<2.0) mg/dL Ur Leukocyte Esterase (Negative) Urine Opiates Screen (NotDetected) Ur Oxycodone Screen (NotDetected) Urine Methadone Screen (NotDetected) Ur Propoxyphene Screen (NotDetected) Ur Barbiturates Screen (NotDetected) U Tricyclic Antidepress (NotDetected) Ur Phencyclidine Scrn (NotDetected) Ur Amphetamines Screen (NotDetected) U Methamphetamines Scrn (NotDetected) U Benzodiazepines Scrn (NotDetected) Urine Cocaine Screen (NotDetected) U Marijuana (THC) Screen (NotDetected) Serum Alcohol 251 mg/dL Blood Type A Positive Blood Type Recheck A Pos Antibody Screen NEGATIVE Spec Expiration Date 12/15/2016 - 235212/12/16 12/12/16 12/12/16 Range/Units 16:53 16:53 20:25 WBC 12.8 H (3.8-10.6) k/uL RBC 3.58 L (3.80-5.40) m/uL Hgb 9.5 L (11.4-16.0) gm/dL Hct 30.2 L (34.0-46.0) % MCV 84.4 (80.0-100.0) fL MCH 26.6 (25.0-35.0) pg MCHC 31.6 (31.0-37.0) g/dL RDW 19.0 H (11.5-15.5) % Plt Count 577 H (150-450) k/uL Neutrophils % 73 % Lymphocytes % 23 % Monocytes % 2 % Eosinophils % 0 % Basophils % 0 % Neutrophils # 9.3 H (1.3-7.7) k/uL Lymphocytes # 3.0 (1.0-4.8) k/uL Monocytes # 0.2 (0-1.0) k/uL Eosinophils # 0.1 (0-0.7) k/uL Basophils # 0.1 (0-0.2) k/uL Anisocytosis Slight PT 10.3 (9.0-12.0) sec INR 1.0 (<1.2) APTT 21.3 L (22.0-30.0) sec Sodium (137-145) mmol/L Potassium (3.5-5.1) mmol/L Chloride (98-107) mmol/L Carbon Dioxide (22-30) mmol/L Anion Gap mmol/L BUN (7-17) mg/dL Creatinine (0.52-1.04) mg/dL Est GFR (MDRD) Af Amer (>60 ml/min/1.73 sqM) Est GFR (MDRD) Non-Af (>60 ml/min/1.73 sqM) Glucose (74-99) mg/dL Calcium (8.4-10.2) mg/dL Total Bilirubin (0.2-1.3) mg/dL AST (14-36) U/L ALT (9-52) U/L Alkaline Phosphatase (38-126) U/L Total Creatine Kinase (30-135) U/L CK-MB (CK-2) (0.0-2.4) ng/mL CK-MB (CK-2) Rel Index Troponin I (0.000-0.034) ng/mL Total Protein (6.3-8.2) g/dL Albumin (3.5-5.0) g/dL Urine Color Light Yellow Urine Appearance Clear (Clear) Urine pH 6.0 (5.0-8.0) Ur Specific [place] 1.004 (1.001-1.035) Urine Protein Negative (Negative) Urine Glucose (UA) Negative (Negative) Urine Ketones Negative (Negative) Urine Blood Negative (Negative) Urine Nitrite Negative (Negative) Urine Bilirubin Negative (Negative) Urine Urobilinogen <2.0 (<2.0) mg/dL Ur Leukocyte Esterase Negative (Negative) Urine Opiates Screen Not Detected (NotDetected) Ur Oxycodone Screen Not Detected (NotDetected) Urine Methadone Screen Not Detected (NotDetected) Ur Propoxyphene Screen Not Detected (NotDetected) Ur Barbiturates Screen Not Detected (NotDetected) U Tricyclic Antidepress Not Detected (NotDetected) Ur Phencyclidine Scrn Not Detected (NotDetected) Ur Amphetamines Screen Not Detected (NotDetected) U Methamphetamines Scrn Not Detected (NotDetected) U Benzodiazepines Scrn Detected H (NotDetected) Urine Cocaine Screen Not Detected (NotDetected) U Marijuana (THC) Screen Not Detected (NotDetected) Serum Alcohol mg/dL Blood Type Blood Type Recheck Antibody Screen Spec Expiration Date Disposition <Cecilia Jurado - Last Filed: 12/12/16 21:15> Time of Disposition: 00:23 <Garrett Barnes - Last Filed: 12/13/16 00:25> Clinical Impression: Fall, COPD exacerbation, Pneumonia, Alcohol intoxication Disposition: HOME SELF-CARE Condition: Fair Additional Instructions: Continue with home medications, stop drinking alcohol. family doctor or consider rehab programs. Take medications as prescribed Prescriptions: Azithromycin 250 mg PO DAILY #5 tab Azithromycin [Zithromax Z-pack] 250 mg PO DIRECTED #6 tab Referrals: Kristina Cornejo MD [Primary Care Provider] - 1-2 days
[2016-12-12 17:04] LABS: Anisocytosis Slight; Basophils # (A) 0.1 k/uL (0-0.2); Basophils % (A) 0 %; CH 27.7; CHCM 32.9; Eosinophils # (A) 0.1 k/uL (0-0.7); Eosinophils % (A) 0 %; HCT 30.2 % (34.0-46.0); HGB 9.5 gm/dL (11.4-16.0); Luc # (Auto) 0.17; Luc % (Auto) 1; Lymphocytes % (A) 23 %; MCH 26.6 pg (25.0-35.0); MCHC 31.6 g/dL (31.0-37.0); MCV 84.4 fL (80.0-100.0); Monocytes # (A) 0.2 k/uL (0-1.0); Monocytes % (A) 2 %; Neutrophils # (A) 9.3 k/uL (1.3-7.7); Neutrophils % (A) 73 %; RBC 3.58 m/uL (3.80-5.40); WBC 12.8 k/uL (3.8-10.6); WBC (Perox) 12.68
[2016-12-12 17:14] LABS: ALT 26 U/L (9-52); AST 14 U/L (14-36); Alkaline Phosphatase 64 U/L (38-126); Anion Gap 16 mmol/L; Blood Urea Nitrogen 12 mg/dL (7-17); Calcium 9.1 mg/dL (8.4-10.2); Carbon Dioxide 19 mmol/L (22-30); Chloride 100 mmol/L (98-107); Glucose 86 mg/dL (74-99); Non-African American GFR(MDRD) >60 (>60 ml/min/1.73 sqM); Sodium 135 mmol/L (137-145); Total Bilirubin 0.2 mg/dL (0.2-1.3); Total Protein 7.4 g/dL (6.3-8.2)
[2016-12-12 17:15] LABS: Alcohol 251 mg/dL
[2016-12-12 17:19] LABS: Prothrombin Time 10.3 sec (9.0-12.0)
[2016-12-12 17:20] LABS: Partial Thromboplastin Time 21.3 sec (22.0-30.0)
[2016-12-12 17:22] LABS: Creatine Kinase 55 U/L (30-135)
[2016-12-12 17:35] LABS: Creatine Kinase MB 0.8 ng/mL (0.0-2.4); Troponin I <0.012 ng/mL (0.000-0.034)
--- NOTE | 2016-12-12 18:21 | CT ---
EXAMINATION TYPE: CT brain perry gruber DATE OF EXAM: 12/12/2016 COMPARISON: NONE HISTORY: Patient poor historian. Patient fell today, abrasion to bridge of nose. Patient ETOH. CT DLP: 949.4 mGycm Automated exposure control for dose reduction was used. TECHNIQUE: CT scan of the head and cervical spine are performed without contrast. FINDINGS: There is no acute intracranial hemorrhage, mass effect, or midline shift identified. The ventricles and sulci are within normal limits in size. Some thickening with air-fluid levels are not ed in the right maxillary sinus. Cervical spine is visualized in its entirety from C1 through upper thoracic levels and demonstrates s atisfactory alignment without evidence of acute fracture or dislocation. Prevertebral soft tissue ap pears within normal limits. The C1-C2 articulation is unremarkable. Anterior fusion hardware is not ed. There are multiple airspace opacities on the background of diffuse emphysema noted in the visualized upper lung reynolds. This is consistent with patient's previously described pneumonia. IMPRESSION: 1. There is no acute fracture or dislocation evident in the cervical spine. 2. No acute intracranial hemorrhage, mass effect, or midline shift is seen. Air-fluid level is noted in the maxillary sinus. 3. Previously described pneumonia is again noted in the chest.
[2016-12-12] MEDS ORDERED: AZITHROMYCIN 500 MG in SODIUM CHLORIDE 0.9% 250 ML IVPB STA (18:36)
--- NOTE | 2016-12-12 19:28 | XR ---
EXAMINATION TYPE: XR chest 1V portable DATE OF EXAM: 12/12/2016 COMPARISON: October 17, 2016 HISTORY: Pain after fall. History of cancer. TECHNIQUE: Single frontal view of the chest is obtained. FINDINGS: Fibrotic changes and/or scarring are again noted in the upper lung reynolds. There is new opacity in th e right midlung which could be related to treatment changes. There is calcified granuloma noted in th e right lower lobe. No pneumothorax or pleural effusion is identified. The cardiac silhouette is with in normal limits. Fusion hardware is again noted in the cervical spine. IMPRESSION: Slight progression in appearance of fibrotic changes/scarring/neoplasm in both lung reynolds with a new opacity in the right midlung.
--- NOTE | 2016-12-12 19:29 | XR ---
Exam: X-ray hip one view TECHNIQUE: Single AP view of the hips obtained. HISTORY: Pain after a fall. FINDINGS: No acute fracture or subluxation is identified. There is extensive fusion hardware noted in the lumbo sacral spine. Degenerative changes are noted at both hip joints with marginal sclerosis and osteophyt e formation. Vascular calcifications are noted in the pelvis. IMPRESSION: No acute abnormality is identified.
[2016-12-12 20:32] LABS: Appearance,Urine Clear (Clear); Bilirubin,Urine Negative (Negative); Glucose,Urine (UA) Negative (Negative); Ketones,Urine Negative (Negative); Leukocyte Esterase,Urine Negative (Negative); Nitrite,Urine Negative (Negative); Protein,Urine Negative (Negative); Specific Gravity,Urine 1.004 (1.001-1.035); UA Billing (MACRO vs. MICRO) CHEM; Urobilinogen,Urine <2.0 mg/dL (<2.0)
[2016-12-13] MEDS ORDERED: IPRATROPIUM-ALBUTEROL 3 ML NEB INHALATION STA (00:20)
[2016-12-13 01:21] VITALS: BP 134/58; PULSE 100; RESP 22
== END 2016-12-13 01:51 | disposition home or self-care (01) ==
LOC: EC 16:22
DX: S01.21XA Laceration without foreign body of nose, initial encounter (principal); S41.112A Laceration without foreign body of left upper arm, initial encounter; S51.011A Laceration without foreign body of right elbow, initial encounter; S51.012A Laceration without foreign body of left elbow, initial encounter; J44.1 Chronic obstructive pulmonary disease with (acute) exacerbation; J44.0 Chronic obstructive pulmonary disease with (acute) lower respiratory infection; J18.9 Pneumonia, unspecified organism; J45.909 Unspecified asthma, uncomplicated; F10.229 Alcohol dependence with intoxication, unspecified; Y90.8 Blood alcohol level of 240 mg/100 ml or more; R41.82 Altered mental status, unspecified; R00.0 Tachycardia, unspecified; E78.5 Hyperlipidemia, unspecified; I10 Essential (primary) hypertension; I25.2 Old myocardial infarction; F41.9 Anxiety disorder, unspecified; F17.200 Nicotine dependence, unspecified, uncomplicated; Z23 Encounter for immunization; Z88.7 Allergy status to serum and vaccine; Z79.51 Long term (current) use of inhaled steroids; Z79.899 Other long term (current) drug therapy; W01.10XA Fall on same level from slipping, tripping and stumbling with subsequent striking against unspecified object, initial encounter; Y93.01 Activity, walking, marching and hiking
CPT/HCPCS: 99285; 96365; 96366; 96361 ×2; 90471; 36415; 94640 ×2; 86900; 86901; 80053; 82550; 82553; 84484; 85025; 85610; 85730; 86850; 81003; 80306; 80320; 71010; 72170; 72125; 70450; 90715; J0456

== ENCOUNTER 2017-02-20 21:06 | Inpatient (IN) | payer MEDICARE, OTHER ==
[2017-02-20] MEDS ORDERED: SODIUM CHLORIDE 0.9% 1,000 ML IV STA ×2 (21:14)
[2017-02-20] MEDS ORDERED: methylPREDNISolone SOD SUCCI 125 MG/2 ML VIAL IV STA (21:14)
[2017-02-20] MEDS ORDERED: AZITHROMYCIN 500 MG in SODIUM CHLORIDE 0.9% 250 ML IVPB STA (21:14)
[2017-02-20] MEDS ORDERED: ALBUTEROL NEBULIZED 2.5 MG/3 ML INHALATION STA (21:14)
[2017-02-20] MEDS ORDERED: IPRATROPIUM 0.5 MG/2.5 ML NEBU INHALATION STA (21:14)
--- NOTE | 2017-02-20 21:16 | ED ---
General Adult HPI - General Chief complaint: Shortness of Breath Stated complaint: Chest pain, JONE Time Seen by Provider: 02/20/17 21:14 Source: patient, EMS, RN notes reviewed, old records reviewed Mode of arrival: EMS Limitations: physical limitation - History of Present Illness Initial comments: this is a 67-year-old female to the ER for evaluation. Patient does evaluation regarding shortness of breath, severe shortness of breath history of COPD. Patient also with of chest pain. Symptoms worsening felt the day despite breathing treatments. Patient is unable to get a good breath, feels significantly short of breath. Worse with movement [id number] not completet activities at home. Patient severe history of COPD again.patient continues to smoke - Related Data Home Medications Medication Instructions Recorded Confirmed HYDROcodone/APAP 7.5-325MG [[place] 1 tab PO Q8H PRN 06/12/16 02/20/17 7.5-325] Furosemide [Lasix] 20 mg PO DAILY 02/03/17 02/20/17 Megestrol Acetate 40 mg PO BID 02/03/17 02/20/17 Omeprazole [PriLOSEC] 20 mg PO AC-BID 02/03/17 02/20/17 Ranitidine HCl [Zantac] 300 mg PO DAILY 02/20/17 02/20/17 Previous Rx's Medication Instructions Recorded Nicotine 21Mg/24Hr Patch [Habitrol] 1 patch TRANSDERM DAILY #30 patch 02/06/17 predniSONE 5 mg PO DAILY #0 02/06/17 Allergies Allergy/AdvReac Type Severity Reaction Status Date / Time No Known Allergies Allergy Verified 02/20/17 22:14 Review of Systems ROS Statement: Those systems with pertinent positive or pertinent negative responses have been documented in the HPI. ROS Other: All systems not noted in ROS Statement are negative. 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 Last Myocardial Infarction Date:: 2011? History of Any Multi-Drug Resistant Organisms: None Reported Past Surgical History: Appendectomy, Back Surgery, Bowel Resection, Section, Hysterectomy, Orthopedic Surgery Additional Past Surgical History / Comment(s): 10/28/15 anterior cervical decompression fusion C3-4,C4-5,C5-6 with NIM cord monitoring, BACK SURGERY lami / FUSION/discectomy, manolo CATARACT SURGERY, LASER EYE SURGERY FOR GLAUCOMA., RIGHT KNEE SURGERY(fx kneecap). Neck surgery, has bars and screws in the neck, bronchoscope Past Anesthesia/Blood Transfusion Reactions: No Reported Reaction Past Psychological History: Anxiety Smoking Status: Current every day smoker Past Alcohol Use History: Occasional Past Drug Use History: None Reported - Past Family History Mother Family Medical History: Myocardial Infarction (DE) Additional Family Medical History / Comment(s): Mother had a DE in her 50's Father Family Medical History: No Reported History Additional Family Medical History / Comment(s): FORM OLD AGE Brother(s) Family Medical History: Asthma, COPD Sister(s) Family Medical History: Asthma, COPD General Exam Limitations: physical limitation General appearance: anxious Head exam: Present: atraumatic, normocephalic, normal inspection Eye exam: Present: normal appearance, PERRL, EOMI. Absent: scleral icterus, conjunctival injection, periorbital swelling ENT exam: Present: normal exam, mucous membranes moist Neck exam: Present: normal inspection. Absent: tenderness, meningismus, lymphadenopathy Respiratory exam: Present: normal lung sounds bilaterally, wheezes, chest wall tenderness, accessory muscle use, decreased breath sounds, prolonged expiratory. Absent: respiratory distress, rales, rhonchi, stridor Cardiovascular Exam: Present: normal rhythm, tachycardia, normal heart sounds. Absent: systolic murmur, diastolic murmur, rubs, gallop, clicks GI/Abdominal exam: Present: soft, normal bowel sounds. Absent: distended, tenderness, guarding, rebound, rigid Extremities exam: Present: normal inspection, full ROM, normal capillary refill. Absent: tenderness, pedal edema, joint swelling, calf tenderness Back exam: Present: normal inspection Neurological exam: Present: alert, oriented X3, CN II-XII intact Psychiatric exam: Present: normal affect, normal mood Skin exam: Present: warm, dry, intact, normal color. Absent: rash Course Vital Signs 02/20/17 02/20/17 02/20/17 21:08 21:32 21:48 Temperature 98.7 F Pulse Rate 110 H 95 109 H Respiratory 24 24 Rate Blood Pressure 152/126 161/67 O2 Sat by Pulse 100 100 Oximetry 02/20/17 22:06 Temperature Pulse Rate 108 H Respiratory Rate Blood Pressure O2 Sat by Pulse Oximetry - Reevaluation(s) Reevaluation #1: 02/20/17 22:28 medical records thoroughly reviewed including prior hospital admissions Reevaluation #2: 02/20/17 22:28 patient is mildly improved with prolonged regiment EKG Findings - EKG Comments: EKG Findings:: EKG shows sinus at rate of 95, NH 124, QRS 86, QTc 444 Medical Decision Making - Medical Decision Making 67 female tear with history of severe COPD coming with COPD exacerbation, shortness of breath and chest pain. Patient be admitted for monitoring of cardiopulmonary status, continuous breathing. Treatments, IV hydration and IV steroids. - Lab Data Result diagrams: 02/20/17 21:21 02/20/17 21:21 Lab Results 02/20/17 02/20/17 02/20/17 Range/Units 21:21 21:21 21:21 WBC 11.3 H (3.8-10.6) k/uL RBC 4.35 (3.80-5.40) m/uL Hgb 12.0 (11.4-16.0) gm/dL Hct 37.8 (34.0-46.0) % MCV 86.8 (80.0-100.0) fL MCH 27.6 (25.0-35.0) pg MCHC 31.8 (31.0-37.0) g/dL RDW 19.3 H (11.5-15.5) % Plt Count 306 (150-450) k/uL Neutrophils % 61 % Lymphocytes % 33 % Monocytes % 4 % Eosinophils % 2 % Basophils % 0 % Neutrophils # 6.8 (1.3-7.7) k/uL Lymphocytes # 3.7 (1.0-4.8) k/uL Monocytes # 0.4 (0-1.0) k/uL Eosinophils # 0.2 (0-0.7) k/uL Basophils # 0.1 (0-0.2) k/uL Anisocytosis Slight Microcytosis Slight PT (9.0-12.0) sec INR (<1.2) APTT (22.0-30.0) sec Sodium 133 L (137-145) mmol/L Potassium 3.5 (3.5-5.1) mmol/L Chloride 101 (98-107) mmol/L Carbon Dioxide 20 L (22-30) mmol/L Anion Gap 12 mmol/L BUN 16 (7-17) mg/dL Creatinine 0.70 (0.52-1.04) mg/dL Est GFR (MDRD) Af Amer >60 (>60 ml/min/1.73 sqM) Est GFR (MDRD) Non-Af >60 (>60 ml/min/1.73 sqM) Glucose 87 (74-99) mg/dL Calcium 9.3 (8.4-10.2) mg/dL Magnesium 1.9 (1.6-2.3) mg/dL Total Bilirubin 0.2 (0.2-1.3) mg/dL AST 16 (14-36) U/L ALT 25 (9-52) U/L Alkaline Phosphatase 73 (38-126) U/L Total Creatine Kinase 77 (30-135) U/L CK-MB (CK-2) 1.9 (0.0-2.4) ng/mL CK-MB (CK-2) Rel Index 2.5 Troponin I <0.012 (0.000-0.034) ng/mL NT-Pro-B Natriuret Pep pg/mL Total Protein 6.7 (6.3-8.2) g/dL Albumin 4.0 (3.5-5.0) g/dL 02/20/17 02/20/17 Range/Units 21:21 21:21 WBC (3.8-10.6) k/uL RBC (3.80-5.40) m/uL Hgb (11.4-16.0) gm/dL Hct (34.0-46.0) % MCV (80.0-100.0) fL MCH (25.0-35.0) pg MCHC (31.0-37.0) g/dL RDW (11.5-15.5) % Plt Count (150-450) k/uL Neutrophils % % Lymphocytes % % Monocytes % % Eosinophils % % Basophils % % Neutrophils # (1.3-7.7) k/uL Lymphocytes # (1.0-4.8) k/uL Monocytes # (0-1.0) k/uL Eosinophils # (0-0.7) k/uL Basophils # (0-0.2) k/uL Anisocytosis Microcytosis PT 9.8 (9.0-12.0) sec INR 1.0 (<1.2) APTT 23.1 (22.0-30.0) sec Sodium (137-145) mmol/L Potassium (3.5-5.1) mmol/L Chloride (98-107) mmol/L Carbon Dioxide (22-30) mmol/L Anion Gap mmol/L BUN (7-17) mg/dL Creatinine (0.52-1.04) mg/dL Est GFR (MDRD) Af Amer (>60 ml/min/1.73 sqM) Est GFR (MDRD) Non-Af (>60 ml/min/1.73 sqM) Glucose (74-99) mg/dL Calcium (8.4-10.2) mg/dL Magnesium (1.6-2.3) mg/dL Total Bilirubin (0.2-1.3) mg/dL AST (14-36) U/L ALT (9-52) U/L Alkaline Phosphatase (38-126) U/L Total Creatine Kinase (30-135) U/L CK-MB (CK-2) (0.0-2.4) ng/mL CK-MB (CK-2) Rel Index Troponin I (0.000-0.034) ng/mL NT-Pro-B Natriuret Pep 149 pg/mL Total Protein (6.3-8.2) g/dL Albumin (3.5-5.0) g/dL - Radiology Data Radiology results: report reviewed (chest x-rays negative for acute disease), image reviewed Critical Care Time Critical Care Time: Yes Total Critical Care Time: 31 Disposition Clinical Impression: COPD exacerbation, Acute exacerbation of chronic obstructive airways disease, Chest pain Disposition: ADMITTED IP TO THIS [facility] Condition: Fair Referrals: Kristina Cornejo MD [Primary Care Provider] - 1-2 days
[2017-02-20] MEDS ORDERED: MORPHINE SULFATE 10 MG/ML SYRINGE IVP STA (21:23)
[2017-02-20] MEDS ORDERED: MORPHINE SULFATE 10 MG/ML SYRINGE IVP PRN (21:23)
[2017-02-20] MEDS ORDERED: LORazepam 2 MG/ML INJ IV STA (21:23)
[2017-02-20 21:35] LABS: Anisocytosis Slight; Basophils # (A) 0.1 k/uL (0-0.2); Basophils % (A) 0 %; CH 27.9; CHCM 32.2; Eosinophils # (A) 0.2 k/uL (0-0.7); Eosinophils % (A) 2 %; HCT 37.8 % (34.0-46.0); HDW 2.35; Luc # (Auto) 0.14; Luc % (Auto) 1; Lymphocytes # (A) 3.7 k/uL (1.0-4.8); Lymphocytes % (A) 33 %; MCH 27.6 pg (25.0-35.0); MCHC 31.8 g/dL (31.0-37.0); MCV 86.8 fL (80.0-100.0); Mean Platelet Volume 7.2; Microcytosis Slight; Monocytes # (A) 0.4 k/uL (0-1.0); Monocytes % (A) 4 %; Neutrophils # (A) 6.8 k/uL (1.3-7.7); Neutrophils % (A) 61 %; RBC 4.35 m/uL (3.80-5.40); RDW 19.3 % (11.5-15.5); WBC 11.3 k/uL (3.8-10.6); WBC (Perox) 11.48
[2017-02-20 21:44] LABS: Partial Thromboplastin Time 23.1 sec (22.0-30.0); Prothrombin Time 9.8 sec (9.0-12.0)
[2017-02-20 21:45] LABS: ALT 25 U/L (9-52); AST 16 U/L (14-36); Alkaline Phosphatase 73 U/L (38-126); Anion Gap 12 mmol/L; Blood Urea Nitrogen 16 mg/dL (7-17); Calcium 9.3 mg/dL (8.4-10.2); Carbon Dioxide 20 mmol/L (22-30); Chloride 101 mmol/L (98-107); Glucose 87 mg/dL (74-99); Magnesium 1.9 mg/dL (1.6-2.3); Non-African American GFR(MDRD) >60 (>60 ml/min/1.73 sqM); Potassium 3.5 mmol/L (3.5-5.1); Sodium 133 mmol/L (137-145); Total Bilirubin 0.2 mg/dL (0.2-1.3); Total Protein 6.7 g/dL (6.3-8.2)
[2017-02-20 21:53] LABS: Creatine Kinase 77 U/L (30-135)
[2017-02-20 22:07] LABS: Creatine Kinase MB 1.9 ng/mL (0.0-2.4); Troponin I <0.012 ng/mL (0.000-0.034)
--- NOTE | 2017-02-20 22:29 | XR ---
EXAMINATION TYPE: XR chest 2V DATE OF EXAM: 02/20/2017 COMPARISON: 02/03/2017 HISTORY: Difficulty breathing for 3 days TECHNIQUE: Frontal and lateral views of the chest are obtained. FINDINGS: There is coarse linear density in the mid and upper lung reynolds. Heart size is normal. The re is no heart failure. There are chest leads. There is multilevel cervical spine fusion surgery. The re is no evidence of pleural effusion. There is 50% wedging of T6 vertebra. IMPRESSION: COPD and pulmonary fibrotic changes and scarring mainly in the upper lobes. This appears stable compared to old exam. No heart failure. T6 compression fracture is new compared to lateral est x-ray of 01/09/2016. Acute pneumonia cannot be entirely excluded.
[2017-02-20 23:31] VITALS: BMI 18.7
[2017-02-20] MEDS ORDERED: TEMAZEPAM 15 MG CAP PO PRN (23:57)
[2017-02-21] MEDS ORDERED: SODIUM CHLORIDE 0.9% 1,000 ML IV SCH (06:00)
[2017-02-21] MEDS ORDERED: methylPREDNISolone SOD SUCCI 125 MG/2 ML VIAL IV SCH (06:00)
--- NOTE | 2017-02-21 06:31 | HP ---
HISTORY AND PHYSICAL DATE OF SERVICE: 02/20/2017 CHIEF COMPLAINT: Shortness of breath. HISTORY OF PRESENT ILLNESS: This 67-year-old woman with a past medical history of multiple medical problems of asthma, COPD, history of GERD, hypertension, hyperlipidemia, history of myocardial infarction, DJD, history of appendectomy, back surgery being followed by Dr. Cornejo and Dr. Carrero in the outpatient setting, was complaining increased shortness of breath over the past several days. The patient was smoking a few days ago and the patient came to [facility] admitted for further evaluation and treatment. There is no history of fever or rigors. No history of headache, loss of the conscious or seizures. Patient is severely and unable to complete a sentence while talking. Chest x-ray appears to show only COPD. No evidence of any congestive heart failure was noted. The patient was extremely short of labored breath on presentation. There is no history of fever, rigors. No history of headache, loss of consciousness or seizures. PAST MEDICAL HISTORY: Asthma, COPD, history of GERD, hypertension, hyperlipidemia, history of myocardial infarction, history of advanced oxygen-dependent COPD. MEDICATIONS: Home medications are: 1. Prednisone 5 mg daily. 2. Zantac 300 mg daily. 3. Habitrol 21 daily. 4. Prilosec 20 mg daily. 6. Hydrocodone 1 tablet q.8. 7. Lasix 20 mg daily. ALLERGIES: Allergies are none. FAMILY HISTORY: History of myocardial infarction in the family. SOCIAL HISTORY: History of smoking as mentioned earlier. No history of alcohol intake. REVIEW OF SYSTEMS: ENT: No diminished hearing or diminished vision. CARDIOVASCULAR SYSTEM: No angina. RESPIRATORY SYSTEM: As mentioned earlier. GI: No nausea. : No dysuria. NERVOUS SYSTEM: No numbness or weakness. ALLERGY/IMMUNOLOGY: As mentioned earlier. MUSCULOSKELETAL: As mentioned earlier. HEMATOLOGY/ONCOLOGY: No history of anemia. ENDOCRINE: No history of diabetes or hypothyroidism. CONSTITUTIONAL: As mentioned earlier. DERMATOLOGY: Negative. RHEUMATOLOGY: Negative. PSYCHIATRY: As mentioned earlier. PHYSICAL EXAMINATION: The patient is alert and oriented x3. Pulse is 110, blood pressure is 152/126, respiration 24, temperature is 98.7 pulse ox 100% on 5 L. HEENT: Conjunctivae normal. Oral mucosa moist. Neck is no jugular venous distention. No carotid bruits. No lymph enlargement. CARDIOVASCULAR SYSTEM: S1 and S2 muffled. RESPIRATORY SYSTEM: Breath sounds diminished at the bases. Scattered rhonchi and crackles. Expiratory wheezing also present. The patient is unable to complete a sentence. Patient is extremely short of breath. Accessory muscles of respiration acting also. ABDOMEN: Soft, nontender. No mass palpable. No hepatosplenomegaly. LEGS: No edema, no swelling. NERVOUS SYSTEM: Higher functions as mentioned earlier. Moves all 4 limbs. No focal motor or sensory deficits. LYMPHATICS: No lymph node palpable of the neck, axillae or groin. SKIN: No ulcer, rash or bleeding. LABS: WBC 11.3, hemoglobin is 12. INR is 1. Sodium 133. ASSESSMENT: 1. Chronic obstructive pulmonary disease acute exacerbation with acute purulent tracheobronchitis. 2. Continued ongoing nicotine dependence. 3. History of asthma and chronic obstructive pulmonary disease. 4. Gastroesophageal reflux disease. 5. Hypertension. 6. Hyperlipidemia. 7. History of myocardial infarction. 8. History of sleep apnea. 9. History of advanced chronic obstructive pulmonary disease. 10.Chronic hypoxic respiratory failure. 11.History of appendectomy and back surgery. 12.History of degenerative joint disease. 13.History of anxiety. RECOMMENDATION AND DISCUSSION: In this 67-year-old woman who presented with multiple complex medical issues, will monitor the patient closely. Continue the current medications, continue symptomatic treatment. Will initiate broad-spectrum antibiotics and as well as steroids and also bronchodilators. Resume the home medications. DVT prophylaxis. We will follow the patient closely and the prognosis guarded because of multiple complex medical issues. Further recommendations to follow. A copy of dictation forwarded to Dr. Cornejo who is the primary physician. MMWILLOWL / MARYN: [id number] / [place]
[2017-02-21 07:20] LABS: Glucose,Whole Blood 209 mg/dL (75-99)
[2017-02-21] MEDS: PANTOPRAZOLE 40 MG TABLET PO SCH ×2 (07:43→17:18)
[2017-02-21] MEDS: MEGESTROL 40 MG TAB PO SCH ×2 (07:44→20:01)
[2017-02-21] MEDS: INSULIN ASPART 100 UNIT/ML 1 ML 10 ML VIAL SQ SCH ×4 (07:44→21:09)
[2017-02-21] MEDS: NICOTINE 21MG/24HR PATCH TRANSDERM SCH (07:44)
[2017-02-21] MEDS: ENOXAPARIN 40 MG/0.4 ML SYRINGE SQ SCH (07:44)
[2017-02-21] MEDS: SYMBICORT 160-4.5 MCG INHALER INHALATION SCH ×2 (07:50→19:58)
[2017-02-21] MEDS: IPRATROPIUM-ALBUTEROL 3 ML NEB INHALATION SCH ×4 (07:50→19:58)
[2017-02-21 08:33] LABS: Anisocytosis Slight; Basophils % (A) 0 %; CH 28.7; CHCM 31.6; Eosinophils % (A) 0 %; HCT 37.7 % (34.0-46.0); HDW 2.44; HGB 11.5 gm/dL (11.4-16.0); Luc # (Auto) 0.01; Luc % (Auto) 0; Lymphocytes # (A) 0.7 k/uL (1.0-4.8); Lymphocytes % (A) 10 %; MCH 27.6 pg (25.0-35.0); MCHC 30.4 g/dL (31.0-37.0); MCV 90.8 fL (80.0-100.0); Mean Platelet Volume 6.7; Monocytes # (A) 0.1 k/uL (0-1.0); Monocytes % (A) 2 %; Neutrophils # (A) 5.7 k/uL (1.3-7.7); Neutrophils % (A) 88 %; RBC 4.15 m/uL (3.80-5.40); RDW 18.1 % (11.5-15.5); WBC 6.5 k/uL (3.8-10.6); WBC (Perox) 6.75
[2017-02-21 08:55] LABS: Anion Gap 10 mmol/L; Blood Urea Nitrogen 19 mg/dL (7-17); Calcium 9.3 mg/dL (8.4-10.2); Carbon Dioxide 20 mmol/L (22-30); Chloride 112 mmol/L (98-107); Glucose 185 mg/dL (74-99); Non-African American GFR(MDRD) >60 (>60 ml/min/1.73 sqM); Potassium 4.5 mmol/L (3.5-5.1); Sodium 142 mmol/L (137-145)
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
[2017-02-21 12:25] LABS: Glucose,Whole Blood 138 mg/dL (75-99)
[2017-02-21 17:16] LABS: Glucose,Whole Blood 176 mg/dL (75-99)
[2017-02-21] MEDS: HYDROcodone/APAP 7.5-325MG 1 EACH TAB PO PRN (17:21)
--- NOTE | 2017-02-21 17:44 | P.PN ---
Subjective Progress Note Date: 02/21/17 Progress note being dictated for Dr. Maier Interval history: This a 67-year-old female admitted with acute COPD exacerbation with acute purulent tracheobronchitis in a patient with ongoing nicotine dependence. Also complaining of chest pain on admission, EKG reported sinus rhythm, troponins negative, Maintained on nebulized bronchodilators, antibiotics and steroids. Evaluated by pulmonary with recommendations noted. Denies chest pain Or palpitations. Objective - Vital Signs Vital signs: Vital Signs Temp 98.0 F 02/21/17 15:24 Pulse 104 H 02/21/17 16:17 Resp 18 02/21/17 15:24 BP 135/74 02/21/17 15:24 Pulse Ox 98 02/21/17 16:01 Intake & Output 02/20/17 02/21/17 02/21/17 18:59 06:59 18:59 Weight 45 kg 45 kg Other: # Voids 1 2 - Exam PHYSICAL EXAM: VITAL SIGNS: As above GENERAL: Sitting up in bed, increased respiratory effort, Accessory muscle use HEENT: Conjunctivae normal. eyes normal. Mucosa moist NECK: No JVD. No thyroid enlargement. No LNs CARDIOVASCULAR: S1, S2 muffled. No murmur RESPIRATION: Breath sounds diminished in the bases. Scattered rhonchi , crackles throughout. Bilateral expiratory wheezing. Short of breath with conversing ABDOMEN: Soft, nontender . No guarding. no masses palpable.Bowel sounds heard. LEGS: No edema. no swelling PSYCHIATRY: Alert and oriented -3, mood and affect normal. NERVOUS SYSTEM: Cranial N 2-12 grossly normal. Moves all 4 limbs. Diffuse weakness No focal deficits. No sensory deficit. No signs of cerebellar dysfucntion. Skin: no ulcer no rash Joints: No active swelling. No inflammation. Lymphatic system. No LN neck axilla or groin. - Labs CBC & Chem 7: 02/21/17 08:06 02/21/17 08:06 Labs: Abnormal Lab Results - Last 24 Hours (Table) 02/20/17 02/20/17 02/21/17 Range/Units 21:21 21:21 06:57 WBC 11.3 H (3.8-10.6) k/uL MCHC (31.0-37.0) g/dL RDW 19.3 H (11.5-15.5) % Lymphocytes # (1.0-4.8) k/uL Sodium 133 L (137-145) mmol/L Chloride (98-107) mmol/L Carbon Dioxide 20 L (22-30) mmol/L BUN (7-17) mg/dL Glucose (74-99) mg/dL POC Glucose (mg/dL) 209 H (75-99) mg/dL 02/21/17 02/21/17 02/21/17 Range/Units 08:06 08:06 12:18 WBC (3.8-10.6) k/uL MCHC 30.4 L (31.0-37.0) g/dL RDW 18.1 H (11.5-15.5) % Lymphocytes # 0.7 L (1.0-4.8) k/uL Sodium (137-145) mmol/L Chloride 112 H (98-107) mmol/L Carbon Dioxide 20 L (22-30) mmol/L BUN 19 H (7-17) mg/dL Glucose 185 H (74-99) mg/dL POC Glucose (mg/dL) 138 H (75-99) mg/dL 02/21/17 Range/Units 16:51 WBC (3.8-10.6) k/uL MCHC (31.0-37.0) g/dL RDW (11.5-15.5) % Lymphocytes # (1.0-4.8) k/uL Sodium (137-145) mmol/L Chloride (98-107) mmol/L Carbon Dioxide (22-30) mmol/L BUN (7-17) mg/dL Glucose (74-99) mg/dL POC Glucose (mg/dL) 176 H (75-99) mg/dL Assessment and Plan Assessment: 1. Acute COPD exacerbation with acute purulent tracheobronchitis. 2. Ongoing nicotine dependence 3. History of asthma and COPD 4. Chronic hypoxic respiratory failure 5. History of [place] 6. Anxiety 7. No code, no CPR, no intubation as per patient's wishes Plan: Continue on current medication regime, nebulized bronchodilators, steroids , antibiotics, monitoring. Case management/social work to assist with discharge planning in a patient who has had multiple, frequent hospitalization visits within the year. Palliative consult initiated. Maintain supportive care. The impression and plan of care has been dictated as directed. : I performed a history and examination of this patient, discussed the same with the dictator. I agree with the dictator's note ,documented as a scribe. Any additional findings or plans will be noted.
[2017-02-21] MEDS: AZITHROMYCIN 500 MG TAB PO SCH (20:01)
[2017-02-21] MEDS: LORazepam 2 MG/ML INJ IV PRN (20:06)
[2017-02-21 20:48] LABS: Glucose,Whole Blood 173 mg/dL (75-99)
[2017-02-22] MEDS: IPRATROPIUM-ALBUTEROL 3 ML NEB INHALATION SCH ×4 (05:41→20:00)
[2017-02-22] MEDS: SYMBICORT 160-4.5 MCG INHALER INHALATION SCH ×2 (05:45→20:00)
[2017-02-22] MEDS: INSULIN ASPART 100 UNIT/ML 1 ML 10 ML VIAL SQ SCH (07:35)
[2017-02-22 07:43] LABS: Glucose,Whole Blood 99 mg/dL (75-99)
[2017-02-22 08:16] LABS: Anisocytosis Slight; Basophils % (A) 0 %; CH 27.7; CHCM 31.1; Eosinophils % (A) 0 %; HCT 35.8 % (34.0-46.0); HDW 2.23; HGB 11.2 gm/dL (11.4-16.0); Luc # (Auto) 0.12; Luc % (Auto) 1; Lymphocytes # (A) 2.6 k/uL (1.0-4.8); Lymphocytes % (A) 28 %; MCHC 31.3 g/dL (31.0-37.0); MCV 89.6 fL (80.0-100.0); Mean Platelet Volume 7.1; Monocytes # (A) 0.5 k/uL (0-1.0); Monocytes % (A) 5 %; Neutrophils # (A) 6.2 k/uL (1.3-7.7); Neutrophils % (A) 66 %; RDW 19.3 % (11.5-15.5); WBC 9.4 k/uL (3.8-10.6); WBC (Perox) 9.97
[2017-02-22] MEDS: ENOXAPARIN 40 MG/0.4 ML SYRINGE SQ SCH (08:17)
[2017-02-22] MEDS: predniSONE 20 MG TAB PO SCH (08:17)
[2017-02-22] MEDS: NICOTINE 21MG/24HR PATCH TRANSDERM SCH (08:17)
[2017-02-22] MEDS: MEGESTROL 40 MG TAB PO SCH ×2 (08:17→20:01)
[2017-02-22] MEDS: PANTOPRAZOLE 40 MG TABLET PO SCH ×2 (08:17→17:16)
[2017-02-22 08:27] LABS: Anion Gap 4 mmol/L; Blood Urea Nitrogen 18 mg/dL (7-17); Calcium 8.8 mg/dL (8.4-10.2); Carbon Dioxide 26 mmol/L (22-30); Chloride 108 mmol/L (98-107); Glucose 94 mg/dL (74-99); Non-African American GFR(MDRD) >60 (>60 ml/min/1.73 sqM); Potassium 4.2 mmol/L (3.5-5.1); Sodium 138 mmol/L (137-145)
[2017-02-22] MEDS: HYDROcodone/APAP 7.5-325MG 1 EACH TAB PO PRN ×2 (12:28→20:01)
--- NOTE | 2017-02-22 13:17 | P.PN ---
Subjective Progress Note Date: 02/22/17 Principal diagnosis: Acute exacerbation of chronic obstructive pulmonary disease 67-year-old female well-known to our service. She has a history of severe end- stage COPD. Unfortunately, the patient continues to smoke cigarettes. We've counseled her many times. We went back and looked at her admission just this year alone and she's had 12 admission just in 2017 and 2017 is even over yet. She comes in with complaints of right usual of shortness of breath chest congestion coughing wheezing coughing up phlegm. Her chest x-ray showed only chronic changes. Nothing acute. She apparently also complained of chest pain. Again she continues to smoke. I had a conversation with the nurse practitioner who works with the hospital group and also I just mentioned to Dr. Lujan himself that the patient should not be admitted when she comes into the hospital and she has something definitive in different than her previous admissions. In addition, I think a palliative care consultation be initiated and the ethics committee should be asked to see her. She is abusing the system in my opinion. On 02/22/2017 patient is seen in follow-up, she is resting in bed, she is short of breath with conversation. She states she is feeling slightly better, lung sounds are still tight with diffuse wheezes throughout the lung reynolds. Continues on 5 L per nasal cannula with O2 sat at 99%. She has been afebrile since admission. Not much in the way of sputum production. Blood cultures negative since admission. Continues on empiric antibiotic coverage in the form of Zithromax, continues on by mouth prednisone, Symbicort inhaler and DuoNeb. No significant abnormalities noted on today's blood work. Objective - Vital Signs Vital signs: Vital Signs Temp 97.3 F L 02/22/17 07:35 Pulse 100 02/22/17 11:21 Resp 18 02/22/17 07:35 BP 137/74 02/22/17 07:35 Pulse Ox 99 02/22/17 07:35 Intake & Output 02/21/17 02/22/17 02/22/17 18:59 06:59 18:59 Intake Total 800 Balance 800 Weight 45 kg Intake: Oral 800 Other: # Voids 1 1 - Exam No acute distress oriented [address] she looks like she is at pretty much at baseline. HEENT examination is grossly unremarkable. Mucous membranes are moist. No oral lesions. Nasal O2 in place. Neck supple. Full range of motion. No adenopathy or thyromegaly. Neck veins are flat. Cardiovascular examination reveals regular rate and rhythm rate. S1-S2 normal. No S3-S4 or murmur. Lungs reveal better air entry bilaterally, diffuse wheezes throughout the lung reynolds. No rhonchi noted. There is prolongation of the expiratory phase Abdomen soft bowel sounds are heard. Extremities are intact. No cyanosis clubbing or edema. Skin without rash. Neurologic examination is prepared nonfocal. - Labs CBC & Chem 7: 02/22/17 07:48 02/22/17 07:48 Labs: Abnormal Lab Results - Last 24 Hours (Table) 02/21/17 02/21/17 02/21/17 Range/Units 08:06 16:51 20:43 Hgb (11.4-16.0) gm/dL RDW (11.5-15.5) % Chloride (98-107) mmol/L BUN (7-17) mg/dL POC Glucose (mg/dL) 176 H 173 H (75-99) mg/dL Hemoglobin A1c 6.1 H (4.0-6.0) % 02/22/17 02/22/17 Range/Units 07:48 07:48 Hgb 11.2 L (11.4-16.0) gm/dL RDW 19.3 H (11.5-15.5) % Chloride 108 H (98-107) mmol/L BUN 18 H (7-17) mg/dL POC Glucose (mg/dL) (75-99) mg/dL Hemoglobin A1c (4.0-6.0) % Microbiology - Last 24 Hours (Table) 02/20/17 21:29 Blood Culture - Preliminary Blood No Growth after 24 hours Assessment and Plan Plan: Assessment: #1. Acute on chronic hypoxic respiratory failure secondary to acute exacerbation of COPD #2. Acute tracheobronchitis #3. Generalized weakness #4. Chronic and ongoing nicotine dependence #5. History of [place] #6. Anxiety #7. Status DO NOT RESUSCITATE per patient's wishes Plan: Continue with current medical treatment, continue oral prednisone, Runco dilators and Symbicort. Patient reports slight improvement in her condition, better air entry noted bilaterally, with diffuse wheezing. Patient's short of breath with normal conversation, not ready to go home yet. Further recommendations to follow. I performed a history & physical examination of the patient and discussed their management with my nurse practitioner, Alexus Rollins. I reviewed the nurse practitioner's note and agree with the documented findings and plan of care. Lung sounds are positive for diffuse wheezes throughout the lung reynolds. The findings and the impression was discussed with the patient. I attest to the documentation by the nurse practitioner. Time with Patient: Less than 30
--- NOTE | 2017-02-22 16:18 | P.PN ---
Subjective Progress Note Date: 02/22/17 Progress note being dictated for Dr. Maier Interval history: This a 67-year-old female admitted with acute COPD exacerbation with acute purulent tracheobronchitis in a patient with ongoing nicotine dependence. Also complaining of chest pain on admission, EKG reported sinus rhythm, troponins negative, Maintained on nebulized bronchodilators, antibiotics and steroids. Evaluated by pulmonary with recommendations noted. Denies chest pain Or palpitations. 02/22/2017 continues on nebulized bronchodilators, steroids and antibiotics. maintaining O2 sats of 99% on 5 L nasal cannula. Continues to have significant shortness of breath, mildly tachycardic, unable to speak in full sentences. Denies chest pain, palpitations. Objective - Vital Signs Vital signs: Vital Signs Temp 98.3 F 02/22/17 14:49 Pulse 104 H 02/22/17 15:51 Resp 17 02/22/17 15:51 BP 150/90 02/22/17 14:49 Pulse Ox 99 02/22/17 14:49 Intake & Output 02/21/17 02/22/17 02/22/17 18:59 06:59 18:59 Intake Total 800 Balance 800 Weight 45 kg Intake: Oral 800 Other: Voiding Method Toilet # Voids 1 1 2 - Exam PHYSICAL EXAM: VITAL SIGNS: As above GENERAL: Sitting up in bed, increased respiratory effort, Accessory muscle use HEENT: Conjunctivae normal. eyes normal. Mucosa moist NECK: No JVD. No thyroid enlargement. No LNs CARDIOVASCULAR: S1, S2 muffled. No murmur RESPIRATION: Breath sounds diminished in the bases. Scattered rhonchi , crackles throughout. Bilateral expiratory wheezing. Short of breath with conversing ABDOMEN: Soft, nontender . No guarding. no masses palpable.Bowel sounds heard. LEGS: No edema. no swelling PSYCHIATRY: Alert and oriented -3, mood and affect normal. NERVOUS SYSTEM: Cranial N 2-12 grossly normal. Moves all 4 limbs. Diffuse weakness No focal deficits. No sensory deficit. No signs of cerebellar dysfucntion. Skin: no ulcer no rash Joints: No active swelling. No inflammation. Lymphatic system. No LN neck axilla or groin. - Labs CBC & Chem 7: 02/22/17 07:48 02/22/17 07:48 Labs: Abnormal Lab Results - Last 24 Hours (Table) 02/21/17 02/21/17 02/21/17 Range/Units 08:06 16:51 20:43 Hgb (11.4-16.0) gm/dL RDW (11.5-15.5) % Chloride (98-107) mmol/L BUN (7-17) mg/dL POC Glucose (mg/dL) 176 H 173 H (75-99) mg/dL Hemoglobin A1c 6.1 H (4.0-6.0) % 02/22/17 02/22/17 Range/Units 07:48 07:48 Hgb 11.2 L (11.4-16.0) gm/dL RDW 19.3 H (11.5-15.5) % Chloride 108 H (98-107) mmol/L BUN 18 H (7-17) mg/dL POC Glucose (mg/dL) (75-99) mg/dL Hemoglobin A1c (4.0-6.0) % Microbiology - Last 24 Hours (Table) 02/20/17 21:29 Blood Culture - Preliminary Blood No Growth after 24 hours Assessment and Plan Assessment: 1. Acute COPD exacerbation with acute purulent tracheobronchitis. 2. Ongoing nicotine dependence 3. History of asthma and COPD 4. Chronic hypoxic respiratory failure 5. History of [place] 6. Anxiety 7. No code, no CPR, no intubation as per patient's wishes Plan: Continue on current medication regime, nebulized bronchodilators, steroids , antibiotics, monitoring. Maintain supportive care. Not ready for discharge yet. The impression and plan of care has been dictated as directed. : I performed a history and examination of this patient, discussed the same with the dictator. I agree with the dictator's note ,documented as a scribe. Any additional findings or plans will be noted.
[2017-02-22] MEDS: LORazepam 2 MG/ML INJ IV PRN (19:09)
[2017-02-22] MEDS: AZITHROMYCIN 500 MG TAB PO SCH (20:01)
[2017-02-23] MEDS ORDERED: IPRATROPIUM-ALBUTEROL 3 ML NEB INHALATION PRN (04:24)
[2017-02-23] MEDS: HYDROcodone/APAP 7.5-325MG 1 EACH TAB PO PRN (06:40)
[2017-02-23] MEDS: IPRATROPIUM-ALBUTEROL 3 ML NEB INHALATION SCH ×2 (07:19→11:10)
[2017-02-23] MEDS: SYMBICORT 160-4.5 MCG INHALER INHALATION SCH (07:19)
[2017-02-23 07:29] VITALS: BP 145/84; TEMP 98.1
[2017-02-23 07:57] LABS: Anisocytosis Slight; Basophils % (A) 0 %; CH 28.7; CHCM 31.6; Eosinophils # (A) 0.1 k/uL (0-0.7); Eosinophils % (A) 0 %; HCT 36.2 % (34.0-46.0); HDW 2.34; HGB 11.3 gm/dL (11.4-16.0); Luc # (Auto) 0.15; Luc % (Auto) 1; Lymphocytes # (A) 3.3 k/uL (1.0-4.8); Lymphocytes % (A) 29 %; MCH 28.4 pg (25.0-35.0); MCHC 31.2 g/dL (31.0-37.0); Mean Platelet Volume 6.7; Monocytes # (A) 0.5 k/uL (0-1.0); Monocytes % (A) 5 %; Neutrophils # (A) 7.3 k/uL (1.3-7.7); Neutrophils % (A) 64 %; RBC 3.98 m/uL (3.80-5.40); RDW 17.9 % (11.5-15.5); WBC 11.4 k/uL (3.8-10.6); WBC (Perox) 11.58
[2017-02-23 08:15] LABS: Anion Gap 5 mmol/L; Blood Urea Nitrogen 19 mg/dL (7-17); Calcium 8.7 mg/dL (8.4-10.2); Carbon Dioxide 27 mmol/L (22-30); Chloride 104 mmol/L (98-107); Glucose 91 mg/dL (74-99); Non-African American GFR(MDRD) >60 (>60 ml/min/1.73 sqM); Potassium 4.2 mmol/L (3.5-5.1); Sodium 136 mmol/L (137-145)
[2017-02-23] MEDS: ENOXAPARIN 40 MG/0.4 ML SYRINGE SQ SCH (08:26)
[2017-02-23] MEDS: PANTOPRAZOLE 40 MG TABLET PO SCH (08:26)
[2017-02-23] MEDS: predniSONE 20 MG TAB PO SCH (08:26)
[2017-02-23] MEDS: NICOTINE 21MG/24HR PATCH TRANSDERM SCH (08:27)
[2017-02-23] MEDS: MEGESTROL 40 MG TAB PO SCH (08:27)
--- NOTE | 2017-02-23 11:06 | P.PN ---
Subjective Progress Note Date: 02/23/17 Principal diagnosis: Acute exacerbation of chronic obstructive pulmonary disease 67-year-old female well-known to our service. She has a history of severe end- stage COPD. Unfortunately, the patient continues to smoke cigarettes. We've counseled her many times. We went back and looked at her admission just this year alone and she's had 12 admission just in 2017 and 2017 is even over yet. She comes in with complaints of right usual of shortness of breath chest congestion coughing wheezing coughing up phlegm. Her chest x-ray showed only chronic changes. Nothing acute. She apparently also complained of chest pain. Again she continues to smoke. I had a conversation with the nurse practitioner who works with the hospital group and also I just mentioned to Dr. Lujan himself that the patient should not be admitted when she comes into the hospital and she has something definitive in different than her previous admissions. In addition, I think a palliative care consultation be initiated and the ethics committee should be asked to see her. She is abusing the system in my opinion. On 02/22/2017 patient is seen in follow-up, she is resting in bed, she is short of breath with conversation. She states she is feeling slightly better, lung sounds are still tight with diffuse wheezes throughout the lung reynolds. Continues on 5 L per nasal cannula with O2 sat at 99%. She has been afebrile since admission. Not much in the way of sputum production. Blood cultures negative since admission. Continues on empiric antibiotic coverage in the form of Zithromax, continues on by mouth prednisone, Symbicort inhaler and DuoNeb. No significant abnormalities noted on today's blood work. On 02/23/2017 patient seen in follow-up, she continues to improve. Her lung sounds are still positive for scattered wheezing, right greater than the left, but there is better air entry noted. Patient states she is improved enough to go home today. Cultures have been negative so far. She has been afebrile. From pulmonary standpoint she can be discharged home today on prednisone taper, 5 day course of Zithromax and continue with her maintenance inhalers at home. Follow-up with Dr. Carrero in 10 days. Objective - Vital Signs Vital signs: Vital Signs Temp 98.1 F 02/23/17 07:29 Pulse 104 H 02/23/17 07:39 Resp 18 02/23/17 07:29 BP 145/84 02/23/17 07:29 Pulse Ox 99 02/23/17 07:29 Intake & Output 02/22/17 02/23/17 02/23/17 18:59 06:59 18:59 Intake Total 800 Balance 800 Intake: Oral 800 Other: Voiding Method Toilet Toilet # Voids 1 2 - Exam No acute distress oriented [address] she looks like she is at pretty much at baseline. HEENT examination is grossly unremarkable. Mucous membranes are moist. No oral lesions. Nasal O2 in place. Neck supple. Full range of motion. No adenopathy or thyromegaly. Neck veins are flat. Cardiovascular examination reveals regular rate and rhythm rate. S1-S2 normal. No S3-S4 or murmur. Lungs reveal better air entry bilaterally, diffuse wheezes throughout the lung reynolds. No rhonchi noted. There is prolongation of the expiratory phase Abdomen soft bowel sounds are heard. Extremities are intact. No cyanosis clubbing or edema. Skin without rash. Neurologic examination is prepared nonfocal. - Labs CBC & Chem 7: 02/23/17 07:32 02/23/17 07:32 Labs: Abnormal Lab Results - Last 24 Hours (Table) 02/23/17 02/23/17 Range/Units 07:32 07:32 WBC 11.4 H (3.8-10.6) k/uL Hgb 11.3 L (11.4-16.0) gm/dL RDW 17.9 H (11.5-15.5) % Sodium 136 L (137-145) mmol/L BUN 19 H (7-17) mg/dL Microbiology - Last 24 Hours (Table) 02/20/17 21:29 Blood Culture - Preliminary Blood No Growth after 48 hours Assessment and Plan Plan: Assessment: #1. Acute on chronic hypoxic respiratory failure secondary to acute exacerbation of COPD #2. Acute tracheobronchitis #3. Generalized weakness #4. Chronic and ongoing nicotine dependence #5. History of [place] #6. Anxiety #7. Status DO NOT RESUSCITATE per patient's wishes Plan: Continue with current medical treatment, continue oral prednisone, bronchodilators and Symbicort. Patient reports further improvement in her condition, better air entry noted bilaterally, with diffuse wheezing. Patient stable for discharge home today, on prednisone taper starting at 50 mg, finish outpatient course of Zithromax 500 mg for 5 more days. Continue with home inhalers and bronchodilators. Follow-up with Dr. Carrero in 10 days I performed a history & physical examination of the patient and discussed their management with my nurse practitioner, Alexus Rollins. I reviewed the nurse practitioner's note and agree with the documented findings and plan of care. Lung sounds are positive for diffuse wheezes throughout the lung reynolds. The findings and the impression was discussed with the patient. I attest to the documentation by the nurse practitioner. Time with Patient: Less than 30
[2017-02-23 12:09] VITALS: PULSE 94; RESP 16
--- NOTE | 2017-02-23 12:43 | P.DS ---
Providers Date of admission: 02/20/17 22:27 Expected date of discharge: 02/23/17 Attending physician: Amelia Maier Consults: 02/20/17 23:55 Consult Physician Routine Consulting Provider: Kamran Carrero Reason/Comments: copd Do you want consulting provider notified?: Yes Primary care physician: Chantal Acevedo [facility] Course: Final Diagnoses: 1. Acute COPD exacerbation with acute purulent tracheobronchitis. 2. Ongoing nicotine dependence 3. History of asthma and COPD 4. Chronic hypoxic respiratory failure 5. History of [place] 6. Anxiety 7. No code, no CPR, no intubation as per patient's wishes Hospital course:This is a 67-year-old female admitted with acute COPD exacerbation with acute purulent tracheobronchitis in a patient with ongoing nicotine dependence. Also complaining of chest pain on admission, EKG reported sinus rhythm, troponins negative. Evaluated by pulmonary. Maintained on nebulized bronchodilators, antibiotics and steroids. significant clinical improvement. cleared by pulmonary for discharge. Patient is being discharged homein a stable condition with a prognosis. The impression and plan of care has been dictated as directed. : I performed a history and examination of this patient, discussed the same with the dictator. I agree with the dictator's note ,documented as a scribe. Any additional findings or plans will be noted. Patient Condition at Discharge: Stable Plan - Discharge Summary New Discharge Prescriptions: New Azithromycin [Zithromax] 500 mg PO DAILY 5 Days #5 tab predniSONE 10 mg PO DIRECTED 20 Days #60 tab Budesonide-Formot 160-4.5 Mcg [Symbicort 160-4.5 Mcg Inhaler] 2 puff INHALATION RT-BID #1 inh Continue HYDROcodone/APAP 7.5-325MG [[place] 7.5-325] 1 tab PO Q8H PRN PRN Reason: Pain Furosemide [Lasix] 20 mg PO DAILY Megestrol Acetate 40 mg PO BID Omeprazole [PriLOSEC] 20 mg PO AC-BID predniSONE 5 mg PO DAILY #0 Nicotine 21Mg/24Hr Patch [Habitrol] 1 patch TRANSDERM DAILY #30 patch Discontinued Ranitidine HCl [Zantac] 300 mg PO DAILY Discharge Medication List HYDROcodone/APAP 7.5-325MG [[place] 7.5-325] 1 tab PO Q8H PRN 06/12/16 [History] Furosemide [Lasix] 20 mg PO DAILY 02/03/17 [History] Megestrol Acetate 40 mg PO BID 02/03/17 [History] Omeprazole [PriLOSEC] 20 mg PO AC-BID 02/03/17 [History] predniSONE 5 mg PO DAILY #0 02/06/17 [Rx] Azithromycin [Zithromax] 500 mg PO DAILY 5 Days #5 tab 02/23/17 [Rx] Budesonide-Formot 160-4.5 Mcg [Symbicort 160-4.5 Mcg Inhaler] 2 puff INHALATION RT-BID #1 inh 02/23/17 [Rx] Nicotine 21Mg/24Hr Patch [Habitrol] 1 patch TRANSDERM DAILY #30 patch 02/23/17 [ Rx] predniSONE 10 mg PO DIRECTED 20 Days #60 tab 02/23/17 [Rx] Follow up Appointment(s)/Referral(s): Kamran Carrero DO [Doctor of Osteopathic Medicine] - 10 Days [facility] Visiting Nurse, [NON-STAFF] - Kristina Cornejo MD [Primary Care Provider] - 3 Days Ambulatory/Diagnostic Orders: Complete Blood Count w/diff [LAB.AMB] Time Frame: 3 Days, Location: Determined By Patient Activity/Diet/Wound Care/Special Instructions: No smoking. 5lnc O2 [facility] supplies O2 and will bring a tank to the bedside prior to discharge. [facility] will picker/puller portable tank on Monday02/28/17 and can deliver any supply needs at that time, please call them with any needs [phone].
== END 2017-02-23 14:41 | disposition home health service (06) | DRG 190 ==
LOC: EC 21:06 → 4MS4W 22:27
PROVIDERS: ADMIT Hospitalist; ATTEND Hospitalist
DX: J44.0 Chronic obstructive pulmonary disease with (acute) lower respiratory infection (principal); J96.21 Acute and chronic respiratory failure with hypoxia; Z99.81 Dependence on supplemental oxygen; I10 Essential (primary) hypertension; E78.5 Hyperlipidemia, unspecified; J20.9 Acute bronchitis, unspecified; J44.1 Chronic obstructive pulmonary disease with (acute) exacerbation; F17.210 Nicotine dependence, cigarettes, uncomplicated; F41.9 Anxiety disorder, unspecified; G47.30 Sleep apnea, unspecified; H40.9 Unspecified glaucoma; I25.2 Old myocardial infarction; K21.9 Gastro-esophageal reflux disease without esophagitis; M19.90 Unspecified osteoarthritis, unspecified site; Z66 Do not resuscitate; Z79.52 Long term (current) use of systemic steroids; Z79.899 Other long term (current) drug therapy; Z82.49 Family history of ischemic heart disease and other diseases of the circulatory system; Z82.5 Family history of asthma and other chronic lower respiratory diseases; Z85.828 Personal history of other malignant neoplasm of skin; Z87.11 Personal history of peptic ulcer disease
CPT/HCPCS: 36415; 71020; 80048; 80053; 82550; 82553; 83036; 83735; 83880; 84484; 85025; 85610; 85730; 87040; 93005; 94640; 94760; 96365; 96375; 99291

== ENCOUNTER 2017-04-29 17:03 | Emergency (ER) | payer MEDICARE, OTHER ==
[2017-04-29] MEDS ORDERED: IPRATROPIUM-ALBUTEROL 3 ML NEB INHALATION STA (17:10)
[2017-04-29] MEDS ORDERED: methylPREDNISolone SOD SUCCI 125 MG/2 ML VIAL IV STA (17:11)
--- NOTE | 2017-04-29 17:34 | ED ---
SOB HPI - General Chief Complaint: Shortness of Breath Stated Complaint: JONE Time Seen by Provider: 04/29/17 17:06 Source: patient Mode of arrival: EMS Limitations: no limitations - History of Present Illness Initial Comments: Is a 67-year-old female to history of severe COPD who presents emergency department for worsening shortness of breath. She states it's been gradually worsening over the last month. She uses breathing treatments at home and is chronically on 5 L of oxygen. She continues to smoke despite her illness. She states that she smokes to half cigarettes a day. She denies any fevers but does admit to a cough that is different and more productive. She states that she also has pain in her chest and abdomen when she coughs or moves. She called him yesterday when she felt like she was "dying". She states that she just got extremely short of breath was unable control her symptoms or she decided come emergency department. - Related Data Home Medications Medication Instructions Recorded Confirmed HYDROcodone/APAP 7.5-325MG [Babb 1 tab PO Q8H PRN 06/12/16 04/29/17 7.5-325] LORazepam [Ativan] 1 mg PO HS 04/29/17 04/29/17 Sulfamethox-Tmp 800-160Mg [Bactrim 1 tab PO Q12HR 04/29/17 04/29/17 DS 800-160 mg] amLODIPine [Norvasc] 2.5 mg PO DAILY 04/29/17 04/29/17 predniSONE See Taper PO DAILY 04/29/17 04/29/17 Previous Rx's Medication Instructions Recorded Budesonide-Formot 160-4.5 Mcg 2 puff INHALATION RT-BID #1 inh 02/23/17 [Symbicort 160-4.5 Mcg Inhaler] Levofloxacin [Levaquin] 500 mg PO DAILY 3 Days #7 tab 04/29/17 predniSONE 50 mg PO DAILY #5 tablet 04/29/17 Allergies Allergy/AdvReac Type Severity Reaction Status Date / Time No Known Allergies Allergy Verified 04/29/17 17:56 Review of Systems ROS Statement: Those systems with pertinent positive or pertinent negative responses have been documented in the HPI. ROS Other: All systems not noted in ROS Statement are negative. 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 Last Myocardial Infarction Date:: 2011? History of Any Multi-Drug Resistant Organisms: None Reported Past Surgical History: Appendectomy, Back Surgery, Bowel Resection, Section, Hysterectomy, Orthopedic Surgery Additional Past Surgical History / Comment(s): 10/28/15 anterior cervical decompression fusion C3-4,C4-5,C5-6 with NIM cord monitoring, BACK SURGERY lami / FUSION/discectomy, manolo CATARACT SURGERY, LASER EYE SURGERY FOR GLAUCOMA., RIGHT KNEE SURGERY(fx kneecap). Neck surgery, has bars and screws in the neck, bronchoscope Past Anesthesia/Blood Transfusion Reactions: No Reported Reaction Past Psychological History: Anxiety Smoking Status: Current every day smoker Past Alcohol Use History: Occasional Past Drug Use History: None Reported - Past Family History Mother Family Medical History: Myocardial Infarction (OK) Additional Family Medical History / Comment(s): Mother had a OK in her 50's Father Family Medical History: No Reported History Additional Family Medical History / Comment(s): FORM OLD AGE Brother(s) Family Medical History: Asthma, COPD Sister(s) Family Medical History: Asthma, COPD General Exam - General Exam Comments Initial Comments: Constitutional: Awake alert appears in mild respiratory distress Head: Normocephalic atraumatic Eyes: no conjunctival injection No scleral icterus EOMI Neck: No JVD Supple Heart: Regular rate rhythm normal S1-S2 no murmurs Lungs: Expiratory wheezes, tachypnea Abdomen: Soft nondistended nontender Extremities: Non edematous DP pulses intact Radial pulses intact Neuro: A&Ox3 No focal neurologic deficits Psych: Appropriate mood and affect Limitations: no limitations Course Vital Signs 04/29/17 04/29/17 04/29/17 17:06 17:22 17:33 Temperature 98.9 F Pulse Rate 107 H 102 H 104 H Respiratory 26 H Rate Blood Pressure 158/83 O2 Sat by Pulse 99 Oximetry 04/29/17 04/29/17 04/29/17 17:42 18:09 18:54 Temperature Pulse Rate 102 H 108 H 103 H Respiratory 26 H 24 Rate Blood Pressure 136/62 122/73 O2 Sat by Pulse 100 98 Oximetry - Reevaluation(s) Reevaluation #1: 04/29/17 18:52 EKG showing sinus tachycardia with a rate of 103. No C7 changes or T-wave inversions. QTC is 429. Other intervals normal. No ectopy. Medical Decision Making - Medical Decision Making This is a 67-year-old female who presented for shortness of breath and cough. Patient was much improved after breathing treatments here. She was able to rest and sleep. She was never hypoxic in the emergency department. Blood work was reviewed and unremarkable. Chest x-ray showed chronic findings. I spoke with Dr. Tapia about this and he agreed that the patient go home with steroids and antibiotics. The patient will be treated home. Told to return should worsening symptoms. All questions were answered. - Lab Data Result diagrams: 04/29/17 17:29 04/29/17 17:29 Lab Results 04/29/17 04/29/17 04/29/17 Range/Units 17:29 17:29 17:29 WBC 15.1 H (3.8-10.6) k/uL RBC 4.29 (3.80-5.40) m/uL Hgb 12.8 (11.4-16.0) gm/dL Hct 39.7 (34.0-46.0) % MCV 92.6 (80.0-100.0) fL MCH 29.9 (25.0-35.0) pg MCHC 32.3 (31.0-37.0) g/dL RDW 15.8 H (11.5-15.5) % Plt Count 360 (150-450) k/uL Neutrophils % 65 % Lymphocytes % 29 % Monocytes % 4 % Eosinophils % 0 % Basophils % 0 % Neutrophils # 9.8 H (1.3-7.7) k/uL Lymphocytes # 4.3 (1.0-4.8) k/uL Monocytes # 0.6 (0-1.0) k/uL Eosinophils # 0.1 (0-0.7) k/uL Basophils # 0.1 (0-0.2) k/uL VBG pH 7.45 H (7.31-7.41) VBG pCO2 31 L (37-51) mmHg VBG HCO3 21 L (24-28) mmol/L Sodium 133 L (137-145) mmol/L Potassium 4.1 (3.5-5.1) mmol/L Chloride 102 (98-107) mmol/L Carbon Dioxide 22 (22-30) mmol/L Anion Gap 9 mmol/L BUN 19 H (7-17) mg/dL Creatinine 0.67 (0.52-1.04) mg/dL Est GFR (MDRD) Af Amer >60 (>60 ml/min/1.73 sqM) Est GFR (MDRD) Non-Af >60 (>60 ml/min/1.73 sqM) Glucose 100 H (74-99) mg/dL Calcium 9.5 (8.4-10.2) mg/dL Magnesium 1.8 (1.6-2.3) mg/dL Total Bilirubin 0.4 (0.2-1.3) mg/dL AST 22 (14-36) U/L ALT 34 (9-52) U/L Alkaline Phosphatase 65 (38-126) U/L CK-MB (CK-2) (0.0-2.4) ng/mL Troponin I (0.000-0.034) ng/mL Total Protein 6.3 (6.3-8.2) g/dL Albumin 3.9 (3.5-5.0) g/dL 04/29/17 Range/Units 17:29 WBC (3.8-10.6) k/uL RBC (3.80-5.40) m/uL Hgb (11.4-16.0) gm/dL Hct (34.0-46.0) % MCV (80.0-100.0) fL MCH (25.0-35.0) pg MCHC (31.0-37.0) g/dL RDW (11.5-15.5) % Plt Count (150-450) k/uL Neutrophils % % Lymphocytes % % Monocytes % % Eosinophils % % Basophils % % Neutrophils # (1.3-7.7) k/uL Lymphocytes # (1.0-4.8) k/uL Monocytes # (0-1.0) k/uL Eosinophils # (0-0.7) k/uL Basophils # (0-0.2) k/uL VBG pH (7.31-7.41) VBG pCO2 (37-51) mmHg VBG HCO3 (24-28) mmol/L Sodium (137-145) mmol/L Potassium (3.5-5.1) mmol/L Chloride (98-107) mmol/L Carbon Dioxide (22-30) mmol/L Anion Gap mmol/L BUN (7-17) mg/dL Creatinine (0.52-1.04) mg/dL Est GFR (MDRD) Af Amer (>60 ml/min/1.73 sqM) Est GFR (MDRD) Non-Af (>60 ml/min/1.73 sqM) Glucose (74-99) mg/dL Calcium (8.4-10.2) mg/dL Magnesium (1.6-2.3) mg/dL Total Bilirubin (0.2-1.3) mg/dL AST (14-36) U/L ALT (9-52) U/L Alkaline Phosphatase (38-126) U/L CK-MB (CK-2) 2.4 (0.0-2.4) ng/mL Troponin I <0.012 (0.000-0.034) ng/mL Total Protein (6.3-8.2) g/dL Albumin (3.5-5.0) g/dL Disposition Clinical Impression: COPD exacerbation Disposition: HOME SELF-CARE Condition: Stable Instructions: COPD (Chronic Obstructive Pulmonary Disease) (ED) Prescriptions: Levofloxacin [Levaquin] 500 mg PO DAILY 3 Days #7 tab predniSONE 50 mg PO DAILY #5 tablet Referrals: Kristina Cornejo MD [Primary Care Provider] - 1-2 days
[2017-04-29 17:41] LABS: Basophils # (A) 0.1 k/uL (0-0.2); Basophils % (A) 0 %; Eosinophils # (A) 0.1 k/uL (0-0.7); Eosinophils % (A) 0 %; HCT 39.7 % (34.0-46.0); HGB 12.8 gm/dL (11.4-16.0); Lymphocytes # (A) 4.3 k/uL (1.0-4.8); Lymphocytes % (A) 29 %; MCH 29.9 pg (25.0-35.0); MCHC 32.3 g/dL (31.0-37.0); MCV 92.6 fL (80.0-100.0); Mean Platelet Volume 7.4; Monocytes # (A) 0.6 k/uL (0-1.0); Monocytes % (A) 4 %; Neutrophils # (A) 9.8 k/uL (1.3-7.7); Neutrophils % (A) 65 %; Platelet Count 360 k/uL (150-450); RBC 4.29 m/uL (3.80-5.40); RDW 15.8 % (11.5-15.5); WBC 15.1 k/uL (3.8-10.6)
[2017-04-29 17:49] LABS: ALT 34 U/L (9-52); AST 22 U/L (14-36); Albumin 3.9 g/dL (3.5-5.0); Alkaline Phosphatase 65 U/L (38-126); Anion Gap 9 mmol/L; Blood Urea Nitrogen 19 mg/dL (7-17); Calcium 9.5 mg/dL (8.4-10.2); Carbon Dioxide 22 mmol/L (22-30); Chloride 102 mmol/L (98-107); Glucose 100 mg/dL (74-99); Magnesium 1.8 mg/dL (1.6-2.3); Potassium 4.1 mmol/L (3.5-5.1); Sodium 133 mmol/L (137-145); Total Bilirubin 0.4 mg/dL (0.2-1.3); Total Protein 6.3 g/dL (6.3-8.2)
[2017-04-29 18:06] LABS: VBG PH 7.45 (7.31-7.41)
[2017-04-29 18:12] LABS: Creatine Kinase MB 2.4 ng/mL (0.0-2.4); Troponin I <0.012 ng/mL (0.000-0.034)
[2017-04-29] MEDS ORDERED: HYDROcodone/APAP 7.5-325MG 1 EACH TAB PO ONE (18:12)
--- NOTE | 2017-04-29 18:33 | XR ---
EXAMINATION TYPE: XR chest 1V DATE OF EXAM: 04/29/2017 COMPARISON: 02/20/2017 HISTORY: 67 year-old female shortness of breath TECHNIQUE: Single frontal view of the chest is obtained. FINDINGS: Heart is normal size. Aorta and pulmonary vasculature within normal limits. Biapical pleural parenchy mal scarring redemonstrated with diffuse interstitial prominence and hyperinflation. Upward left indu r retraction. Calcified granuloma right mid lung and left-sided nipple shadow. No consolidation or pl eural effusion. ACF hardware. IMPRESSION: Chronic upper lung pleural parenchymal scarring and COPD. No acute cardiopulmonary process.
[2017-04-29 18:55] VITALS: BP 122/73; PULSE 103; RESP 24
[2017-04-29 19:08] VITALS: TEMP 97.9
== END 2017-04-29 19:34 | disposition home or self-care (01) ==
LOC: EC 17:03
DX: J44.1 Chronic obstructive pulmonary disease with (acute) exacerbation (principal); I10 Essential (primary) hypertension; G47.30 Sleep apnea, unspecified; M19.90 Unspecified osteoarthritis, unspecified site; F41.9 Anxiety disorder, unspecified; I25.2 Old myocardial infarction; F17.210 Nicotine dependence, cigarettes, uncomplicated; Z79.52 Long term (current) use of systemic steroids; Z79.899 Other long term (current) drug therapy; Z99.81 Dependence on supplemental oxygen; Z82.5 Family history of asthma and other chronic lower respiratory diseases; Z99.89 Dependence on other enabling machines and devices
CPT/HCPCS: 36415; 94640 ×2; 93005; 80053; 82553; 82803; 83735; 84484; 85025; 71045; 99285; 96374; J2930

== ENCOUNTER 2017-05-09 15:15 | Emergency (ER) | payer MEDICARE, OTHER ==
[2017-05-09] MEDS ORDERED: ALBUTEROL NEBULIZED 2.5 MG/3 ML INHALATION STA (15:23)
[2017-05-09] MEDS ORDERED: methylPREDNISolone SOD SUCCI 125 MG/2 ML VIAL IV STA (15:23)
--- NOTE | 2017-05-09 15:25 | ED ---
General Adult HPI - General Stated complaint: Sob Time Seen by Provider: 05/09/17 15:15 Source: RN notes reviewed - History of Present Illness Initial comments: This is a 61 sutural female with past medical history significant for COPD. Patient continues to smoke as well. Patient comes in today complaining of difficulty breathing since chest. Patient states she's had an increased cough and increased sputum production as well. Patient denies any chest pain except when she is coughing or taking a deep breath. Patient states she's taken multiple treatments but has not helped her. Patient denies any fever or chills. Patient denies any abdominal pain patient denies nausea vomiting diarrhea. Patient denies any calf pain or leg swelling. - Related Data Home Medications Medication Instructions Recorded Confirmed HYDROcodone/APAP 7.5-325MG [[place] 1 tab PO Q8H PRN 06/12/16 05/09/17 7.5-325] LORazepam [Ativan] 1 mg PO HS 04/29/17 05/09/17 amLODIPine [Norvasc] 2.5 mg PO DAILY 04/29/17 05/09/17 Previous Rx's Medication Instructions Recorded Budesonide-Formot 160-4.5 Mcg 2 puff INHALATION RT-BID #1 inh 02/23/17 [Symbicort 160-4.5 Mcg Inhaler] Levofloxacin [Levaquin] 500 mg PO DAILY 3 Days #7 tab 04/29/17 predniSONE 50 mg PO DAILY #5 tablet 04/29/17 Levofloxacin [Levaquin] 750 mg PO DAILY #10 tab 05/09/17 predniSONE 40 mg PO DAILY #8 tab 05/09/17 Allergies Allergy/AdvReac Type Severity Reaction Status Date / Time No Known Allergies Allergy Verified 04/29/17 17:56 Review of Systems ROS Statement: Those systems with pertinent positive or pertinent negative responses have been documented in the HPI. ROS Other: All systems not noted in ROS Statement are negative. 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 Last Myocardial Infarction Date:: 2011? History of Any Multi-Drug Resistant Organisms: None Reported Past Surgical History: Appendectomy, Back Surgery, Bowel Resection, Section, Hysterectomy, Orthopedic Surgery Additional Past Surgical History / Comment(s): 10/28/15 anterior cervical decompression fusion C3-4,C4-5,C5-6 with NIM cord monitoring, BACK SURGERY lami / FUSION/discectomy, manolo CATARACT SURGERY, LASER EYE SURGERY FOR GLAUCOMA., RIGHT KNEE SURGERY(fx kneecap). Neck surgery, has bars and screws in the neck, bronchoscope Past Anesthesia/Blood Transfusion Reactions: No Reported Reaction Past Psychological History: Anxiety Smoking Status: Current every day smoker Past Alcohol Use History: Occasional Past Drug Use History: None Reported - Past Family History Mother Family Medical History: Myocardial Infarction (ND) Additional Family Medical History / Comment(s): Mother had a ND in her 50's Father Family Medical History: No Reported History Additional Family Medical History / Comment(s): FORM OLD AGE Brother(s) Family Medical History: Asthma, COPD Sister(s) Family Medical History: Asthma, COPD General Exam - General Exam Comments Initial Comments: GENERAL: Patient is well-developed and well-nourished. Patient is nontoxic and well- hydrated and is in moderate distress. ENT: Neck is soft and supple. No significant lymphadenopathy is noted. Oropharynx is clear. Moist mucous membranes. Neck has full range of motion without eliciting any pain. EYES: The sclera were anicteric and conjunctiva were pink and moist. Extraocular movements were intact and pupils were equal round and reactive to light. Eyelids were unremarkable. PULMONARY: Patient has expiratory wheezing diffusely CARDIOVASCULAR: There is a regular rate and rhythm without any murmurs gallops or rubs. ABDOMEN: Soft and nontender with normal bowel sounds. No palpable organomegaly was noted. There is no palpable pulsatile mass. SKIN: Skin is clear with no lesions or rashes and otherwise unremarkable. NEUROLOGIC: Patient is alert and oriented x3. Cranial nerves II through XII are grossly intact. Motor and sensory are also intact. Normal speech, volume and content. Symmetrical smile. MUSCULOSKELETAL: Normal extremities with adequate strength and full range of motion. No lower extremity swelling or edema. No calf tenderness. LYMPHATICS: No significant lymphadenopathy is noted PSYCHIATRIC: Normal psychiatric evaluation. Course Vital Signs 05/09/17 05/09/17 05/09/17 15:17 16:22 17:09 Temperature 97.9 F 98 F Pulse Rate 117 H 110 H 115 H Respiratory 20 16 20 Rate Blood Pressure 167/80 171/90 139/93 O2 Sat by Pulse 97 97 97 Oximetry Medical Decision Making - Medical Decision Making EKG shows sinus tachycardia at 105 bpm WA interval is 122 QRS is 86 QT interval 334 QTC is 441 per patient's EKG shows no ST segment elevation or depression or T wave abnormalities are noted. Patient is on 5 L the same that she is on at home. Patient states after that last breathing treatment that EMS gave her she feels at her baseline currently. Patient is still wheezing diffusely but she states that her baseline. I spoke with Dr. Ridley I will admit the patient and write admitting orders and consult pulmonary. - Lab Data Result diagrams: 05/09/17 15:45 05/09/17 15:45 Lab Results 05/09/17 05/09/17 05/09/17 Range/Units 15:45 15:45 15:45 WBC 16.5 H (3.8-10.6) k/uL RBC 4.32 (3.80-5.40) m/uL Hgb 12.9 (11.4-16.0) gm/dL Hct 40.9 (34.0-46.0) % MCV 94.6 (80.0-100.0) fL MCH 29.9 (25.0-35.0) pg MCHC 31.6 (31.0-37.0) g/dL RDW 15.3 (11.5-15.5) % Plt Count 285 (150-450) k/uL Neutrophils % 92 % Lymphocytes % 5 % Monocytes % 2 % Eosinophils % 1 % Basophils % 0 % Neutrophils # 15.1 H (1.3-7.7) k/uL Lymphocytes # 0.9 L (1.0-4.8) k/uL Monocytes # 0.4 (0-1.0) k/uL Eosinophils # 0.1 (0-0.7) k/uL Basophils # 0.1 (0-0.2) k/uL PT (9.0-12.0) sec INR (<1.2) APTT (22.0-30.0) sec Sodium 131 L (137-145) mmol/L Potassium 4.0 (3.5-5.1) mmol/L Chloride 96 L (98-107) mmol/L Carbon Dioxide 22 (22-30) mmol/L Anion Gap 13 mmol/L BUN 15 (7-17) mg/dL Creatinine 0.60 (0.52-1.04) mg/dL Est GFR (MDRD) Af Amer >60 (>60 ml/min/1.73 sqM) Est GFR (MDRD) Non-Af >60 (>60 ml/min/1.73 sqM) Glucose 110 H (74-99) mg/dL Calcium 9.7 (8.4-10.2) mg/dL Magnesium 1.9 (1.6-2.3) mg/dL Total Bilirubin 0.3 (0.2-1.3) mg/dL AST 13 L (14-36) U/L ALT 31 (9-52) U/L Alkaline Phosphatase 76 (38-126) U/L Total Creatine Kinase 63 (30-135) U/L CK-MB (CK-2) 2.4 (0.0-2.4) ng/mL CK-MB (CK-2) Rel Index 3.8 Troponin I <0.012 (0.000-0.034) ng/mL Total Protein 6.5 (6.3-8.2) g/dL Albumin 4.1 (3.5-5.0) g/dL 05/09/17 Range/Units 15:45 WBC (3.8-10.6) k/uL RBC (3.80-5.40) m/uL Hgb (11.4-16.0) gm/dL Hct (34.0-46.0) % MCV (80.0-100.0) fL MCH (25.0-35.0) pg MCHC (31.0-37.0) g/dL RDW (11.5-15.5) % Plt Count (150-450) k/uL Neutrophils % % Lymphocytes % % Monocytes % % Eosinophils % % Basophils % % Neutrophils # (1.3-7.7) k/uL Lymphocytes # (1.0-4.8) k/uL Monocytes # (0-1.0) k/uL Eosinophils # (0-0.7) k/uL Basophils # (0-0.2) k/uL PT 9.6 (9.0-12.0) sec INR 1.0 (<1.2) APTT 20.9 L (22.0-30.0) sec Sodium (137-145) mmol/L Potassium (3.5-5.1) mmol/L Chloride (98-107) mmol/L Carbon Dioxide (22-30) mmol/L Anion Gap mmol/L BUN (7-17) mg/dL Creatinine (0.52-1.04) mg/dL Est GFR (MDRD) Af Amer (>60 ml/min/1.73 sqM) Est GFR (MDRD) Non-Af (>60 ml/min/1.73 sqM) Glucose (74-99) mg/dL Calcium (8.4-10.2) mg/dL Magnesium (1.6-2.3) mg/dL Total Bilirubin (0.2-1.3) mg/dL AST (14-36) U/L ALT (9-52) U/L Alkaline Phosphatase (38-126) U/L Total Creatine Kinase (30-135) U/L CK-MB (CK-2) (0.0-2.4) ng/mL CK-MB (CK-2) Rel Index Troponin I (0.000-0.034) ng/mL Total Protein (6.3-8.2) g/dL Albumin (3.5-5.0) g/dL Disposition Clinical Impression: COPD exacerbation Disposition: Left Against Medical Advice Prescriptions: Levofloxacin [Levaquin] 750 mg PO DAILY #10 tab predniSONE 40 mg PO DAILY #8 tab Referrals: Kristina Cornejo MD [Primary Care Provider] - 1-2 days Time of Disposition: 15:50
[2017-05-09 15:59] LABS: Basophils # (A) 0.1 k/uL (0-0.2); Basophils % (A) 0 %; Eosinophils # (A) 0.1 k/uL (0-0.7); Eosinophils % (A) 1 %; HCT 40.9 % (34.0-46.0); HGB 12.9 gm/dL (11.4-16.0); Lymphocytes # (A) 0.9 k/uL (1.0-4.8); Lymphocytes % (A) 5 %; MCH 29.9 pg (25.0-35.0); MCHC 31.6 g/dL (31.0-37.0); MCV 94.6 fL (80.0-100.0); Mean Platelet Volume 7.9; Monocytes # (A) 0.4 k/uL (0-1.0); Monocytes % (A) 2 %; Neutrophils # (A) 15.1 k/uL (1.3-7.7); Neutrophils % (A) 92 %; Platelet Count 285 k/uL (150-450); RBC 4.32 m/uL (3.80-5.40); RDW 15.3 % (11.5-15.5); WBC 16.5 k/uL (3.8-10.6)
[2017-05-09 16:04] LABS: Partial Thromboplastin Time 20.9 sec (22.0-30.0); Prothrombin Time 9.6 sec (9.0-12.0)
[2017-05-09 16:12] LABS: ALT 31 U/L (9-52); AST 13 U/L (14-36); Albumin 4.1 g/dL (3.5-5.0); Alkaline Phosphatase 76 U/L (38-126); Anion Gap 13 mmol/L; Blood Urea Nitrogen 15 mg/dL (7-17); Calcium 9.7 mg/dL (8.4-10.2); Carbon Dioxide 22 mmol/L (22-30); Chloride 96 mmol/L (98-107); Glucose 110 mg/dL (74-99); Magnesium 1.9 mg/dL (1.6-2.3); Sodium 131 mmol/L (137-145); Total Bilirubin 0.3 mg/dL (0.2-1.3); Total Protein 6.5 g/dL (6.3-8.2)
--- NOTE | 2017-05-09 16:15 | XR ---
EXAMINATION TYPE: XR chest 2V DATE OF EXAM: 05/09/2017 COMPARISON: 04/29/2017 and 02/20/2017 HISTORY: Shortness of breath and chest pain TECHNIQUE: Frontal and lateral views of the chest are obtained. FINDINGS: There is no focal air space opacity, pleural effusion, or pneumothorax seen. The cardiac silhouette size is within normal limits. There is redemonstration of wedge compression deformity of t he T6 vertebral body similar to the prior exam and a new T7 vertebral body compression deformity with approximately 50% vertebral body height loss and no gross evidence of retropulsion. Calcified right midlung granuloma is again noted and left-sided nipple shadow is prominent on the prior. Biapical ple ural-parenchymal scarring and findings compatible with underlying COPD demonstrated as pulmonary hype rinflation and flattening the diaphragms are noted. IMPRESSION: 1. No new focal consolidation to suggest pneumonia. 2. Radiographic sequela of COPD with biapical pleural parenchymal scarring. 3. New wedge compression deformity of the T7 vertebral body with approximately 50% vertebral body hei ght loss in comparison to the exam of 02/20/2017. Correlate with point tenderness to determine acuity . MR could be performed to evaluate for bone marrow edema. Old compression deformity of T6.
[2017-05-09 16:24] LABS: Creatine Kinase 63 U/L (30-135)
[2017-05-09 16:36] LABS: Creatine Kinase MB 2.4 ng/mL (0.0-2.4); Troponin I <0.012 ng/mL (0.000-0.034)
[2017-05-09 17:09] VITALS: BP 139/93; PULSE 115; RESP 20; TEMP 98
== END 2017-05-09 17:22 | disposition left against medical advice (07) ==
LOC: EC 15:15
DX: J44.1 Chronic obstructive pulmonary disease with (acute) exacerbation (principal); I10 Essential (primary) hypertension; G47.30 Sleep apnea, unspecified; F17.200 Nicotine dependence, unspecified, uncomplicated; Z85.828 Personal history of other malignant neoplasm of skin; Z99.89 Dependence on other enabling machines and devices; Z98.890 Other specified postprocedural states; Z79.899 Other long term (current) drug therapy
CPT/HCPCS: 36415; 93005; 80053; 82550; 82553; 83735; 84484; 85025; 85610; 85730; 87040; 71046; 99285; 96374; J2930

== ENCOUNTER 2017-05-19 04:28 | Inpatient (IN) | payer MEDICARE, OTHER ==
[2017-05-19] MEDS ORDERED: methylPREDNISolone SOD SUCCI 125 MG/2 ML VIAL IV STA (04:31)
[2017-05-19] MEDS ORDERED: ALBUTEROL NEBULIZED 2.5 MG/3 ML INHALATION STA (04:31)
[2017-05-19] MEDS ORDERED: IPRATROPIUM-ALBUTEROL 3 ML NEB INHALATION STA (04:31)
--- NOTE | 2017-05-19 04:52 | ED ---
SOB HPI - General Chief Complaint: Shortness of Breath Stated Complaint: JONE,chest pain Time Seen by Provider: 05/19/17 04:31 Source: patient, EMS Mode of arrival: EMS Limitations: physical limitation - History of Present Illness Initial Comments: This patient is a 67-year-old woman brought by EMS to be evaluated for dyspnea. History is limited as the patient is very dyspneic and only able to give 1, sometimes 2 word answers. She indicates that the shortness of breath is been getting progressively worse over the past week. She has been also having nonproductive cough. She denies pain in the chest. She denies diaphoresis. No leg pain or swelling. MD Complaint: shortness of breath -: days(s) Consistency: constant Improves With: nothing Worsens With: lying flat Known History Of: COPD Treatments Prior to Arrival: oxygen, bronchodilator - Related Data Home Medications Medication Instructions Recorded Confirmed HYDROcodone/APAP 7.5-325MG [[place] 1 tab PO Q8H PRN 06/12/16 05/19/17 7.5-325] LORazepam [Ativan] 1 mg PO HS 04/29/17 05/19/17 amLODIPine [Norvasc] 2.5 mg PO DAILY 04/29/17 05/19/17 Omeprazole [PriLOSEC] 20 mg PO BID 05/19/17 05/19/17 Previous Rx's Medication Instructions Recorded Budesonide-Formot 160-4.5 Mcg 2 puff INHALATION RT-BID #1 inh 02/23/17 [Symbicort 160-4.5 Mcg Inhaler] Allergies Allergy/AdvReac Type Severity Reaction Status Date / Time No Known Allergies Allergy Verified 05/19/17 06:41 Review of Systems ROS Statement: Those systems with pertinent positive or pertinent negative responses have been documented in the HPI. ROS Other: All systems not noted in ROS Statement are negative. Limitations: ROS unobtainable due to patients medical condition Constitutional: Denies: fever Respiratory: Reports: cough, dyspnea Cardiovascular: Denies: chest pain Gastrointestinal: Denies: abdominal pain, vomiting Musculoskeletal: Denies: back pain Neurological: Denies: headache Past Medical History Past Medical History: Asthma, Cancer, COPD, Eye Disorder, GERD/Reflux, Hyperlipidemia, Hypertension, Myocardial Infarction (ND), Osteoarthritis (OA), Pneumonia, Respiratory Disorder, Sleep Apnea/CPAP/BIPAP Additional Past Medical History / Comment(s): Advanced oxygen-dependent COPD with chronic hypoxic respiratory failure and with multiple hospitalization for COPD exacerbations, born with a single left kidney, previous ND, PUD, bilateral glaucoma, skin cancer, previous history of bowel obstruction, 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 Last Myocardial Infarction Date:: 2011? History of Any Multi-Drug Resistant Organisms: None Reported Past Surgical History: Appendectomy, Back Surgery, Bowel Resection, Section, Hysterectomy, Orthopedic Surgery Additional Past Surgical History / Comment(s): 10/28/15 anterior cervical decompression fusion C3-4,C4-5,C5-6 with NIM cord monitoring, BACK SURGERY lami / FUSION/discectomy, manolo CATARACT SURGERY, LASER EYE SURGERY FOR GLAUCOMA., RIGHT KNEE SURGERY(fx kneecap). Neck surgery, has bars and screws in the neck, bronchoscope Past Anesthesia/Blood Transfusion Reactions: No Reported Reaction Past Psychological History: Anxiety Smoking Status: Former smoker Past Alcohol Use History: Occasional Past Drug Use History: None Reported - Past Family History Mother Family Medical History: Myocardial Infarction (ND) Additional Family Medical History / Comment(s): Mother had a ND in her 50's Father Family Medical History: No Reported History Additional Family Medical History / Comment(s): FORM OLD AGE Brother(s) Family Medical History: Asthma, COPD Sister(s) Family Medical History: Asthma, COPD General Exam Limitations: physical limitation General appearance: alert, in distress, cachectic Head exam: Present: atraumatic, normocephalic Eye exam: Present: normal appearance. Absent: scleral icterus, conjunctival injection ENT exam: Present: mucous membranes dry Respiratory exam: Present: respiratory distress, wheezes, accessory muscle use, decreased breath sounds, prolonged expiratory, other (Tripod position. Patient is only able to answer with 1-2 words at a time.). Absent: rales, rhonchi, stridor Cardiovascular Exam: Present: tachycardia, irregular rhythm, normal heart sounds. Absent: systolic murmur, diastolic murmur, rubs, gallop GI/Abdominal exam: Present: soft. Absent: tenderness, guarding, rebound, mass Extremities exam: Present: normal inspection, normal capillary refill. Absent: pedal edema, calf tenderness Back exam: Absent: CVA tenderness (R), CVA tenderness (L) Neurological exam: Present: alert Psychiatric exam: Present: anxious Skin exam: Present: warm, dry, intact, normal color. Absent: rash Course Vital Signs 05/19/17 05/19/17 05/19/17 04:39 04:40 04:52 Temperature 102.2 F H Pulse Rate 150 H 153 H 159 H Respiratory 32 H Rate Blood Pressure 192/95 O2 Sat by Pulse 94 L Oximetry 05/19/17 05/19/17 05:07 06:27 Temperature 98.6 F Pulse Rate 148 H 120 H Respiratory 40 H 30 H Rate Blood Pressure 173/98 134/58 O2 Sat by Pulse 97 98 Oximetry Medical Decision Making - Medical Decision Making Patient is a 67-year-old woman in with COPD exacerbation. Case discussed with admitting physician and with Dr. 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 - Lab Data Result diagrams: 05/19/17 05:05 05/19/17 05:05 Lab Results 05/19/17 05/19/17 05/19/17 Range/Units 05:05 05:05 05:05 WBC 15.8 H (3.8-10.6) k/uL RBC 4.90 (3.80-5.40) m/uL Hgb 14.8 (11.4-16.0) gm/dL Hct 46.0 (34.0-46.0) % MCV 93.8 (80.0-100.0) fL MCH 30.2 (25.0-35.0) pg MCHC 32.1 (31.0-37.0) g/dL RDW 14.3 (11.5-15.5) % Plt Count 354 (150-450) k/uL Neutrophils % 81 % Lymphocytes % 15 % Monocytes % 3 % Eosinophils % 0 % Basophils % 1 % Neutrophils # 12.7 H (1.3-7.7) k/uL Lymphocytes # 2.3 (1.0-4.8) k/uL Monocytes # 0.4 (0-1.0) k/uL Eosinophils # 0.0 (0-0.7) k/uL Basophils # 0.1 (0-0.2) k/uL PT (9.0-12.0) sec INR (<1.2) APTT (22.0-30.0) sec D-Dimer (<0.60) mg/L FEU Sodium 133 L (137-145) mmol/L Potassium 5.0 (3.5-5.1) mmol/L Chloride 94 L (98-107) mmol/L Carbon Dioxide 27 (22-30) mmol/L Anion Gap 12 mmol/L BUN 24 H (7-17) mg/dL Creatinine 0.60 (0.52-1.04) mg/dL Est GFR (MDRD) Af Amer >60 (>60 ml/min/1.73 sqM) Est GFR (MDRD) Non-Af >60 (>60 ml/min/1.73 sqM) Glucose 113 H (74-99) mg/dL Calcium 9.5 (8.4-10.2) mg/dL Total Bilirubin 0.5 (0.2-1.3) mg/dL AST 17 (14-36) U/L ALT 29 (9-52) U/L Alkaline Phosphatase 70 (38-126) U/L Total Creatine Kinase 40 (30-135) U/L CK-MB (CK-2) 2.6 H* (0.0-2.4) ng/mL CK-MB (CK-2) Rel Index 6.5 Troponin I 0.070 H* (0.000-0.034) ng/mL NT-Pro-B Natriuret Pep pg/mL Total Protein 6.6 (6.3-8.2) g/dL Albumin 4.0 (3.5-5.0) g/dL Influenza Type A RNA (Not Detectd) Influenza Type B (PCR) (Not Detectd) 05/19/17 05/19/17 05/19/17 Range/Units 05:05 05:05 05:05 WBC (3.8-10.6) k/uL RBC (3.80-5.40) m/uL Hgb (11.4-16.0) gm/dL Hct (34.0-46.0) % MCV (80.0-100.0) fL MCH (25.0-35.0) pg MCHC (31.0-37.0) g/dL RDW (11.5-15.5) % Plt Count (150-450) k/uL Neutrophils % % Lymphocytes % % Monocytes % % Eosinophils % % Basophils % % Neutrophils # (1.3-7.7) k/uL Lymphocytes # (1.0-4.8) k/uL Monocytes # (0-1.0) k/uL Eosinophils # (0-0.7) k/uL Basophils # (0-0.2) k/uL PT 9.5 (9.0-12.0) sec INR 0.9 (<1.2) APTT 20.9 L (22.0-30.0) sec D-Dimer 0.46 (<0.60) mg/L FEU Sodium (137-145) mmol/L Potassium (3.5-5.1) mmol/L Chloride (98-107) mmol/L Carbon Dioxide (22-30) mmol/L Anion Gap mmol/L BUN (7-17) mg/dL Creatinine (0.52-1.04) mg/dL Est GFR (MDRD) Af Amer (>60 ml/min/1.73 sqM) Est GFR (MDRD) Non-Af (>60 ml/min/1.73 sqM) Glucose (74-99) mg/dL Calcium (8.4-10.2) mg/dL Total Bilirubin (0.2-1.3) mg/dL AST (14-36) U/L ALT (9-52) U/L Alkaline Phosphatase (38-126) U/L Total Creatine Kinase (30-135) U/L CK-MB (CK-2) (0.0-2.4) ng/mL CK-MB (CK-2) Rel Index Troponin I (0.000-0.034) ng/mL NT-Pro-B Natriuret Pep 158 pg/mL Total Protein (6.3-8.2) g/dL Albumin (3.5-5.0) g/dL Influenza Type A RNA Not Detected (Not Detectd) Influenza Type B (PCR) Not Detected (Not Detectd) - EKG Data -: EKG Interpreted by Me EKG shows normal: sinus rhythm, axis (Normal), intervals (Normal) Rate: tachycardia (Rate approximate 150 bpm) Interpretation: other (Right atrial enlargement. Possible old septal infarct.) Disposition Clinical Impression: COPD exacerbation Disposition: ADMITTED IP TO THIS HOSP Condition: Poor
[2017-05-19 05:15] LABS: Basophils # (A) 0.1 k/uL (0-0.2); Basophils % (A) 1 %; Eosinophils % (A) 0 %; HGB 14.8 gm/dL (11.4-16.0); Lymphocytes # (A) 2.3 k/uL (1.0-4.8); Lymphocytes % (A) 15 %; MCH 30.2 pg (25.0-35.0); MCHC 32.1 g/dL (31.0-37.0); MCV 93.8 fL (80.0-100.0); Mean Platelet Volume 6.7; Monocytes # (A) 0.4 k/uL (0-1.0); Monocytes % (A) 3 %; Neutrophils # (A) 12.7 k/uL (1.3-7.7); Neutrophils % (A) 81 %; Platelet Count 354 k/uL (150-450); RDW 14.3 % (11.5-15.5); WBC 15.8 k/uL (3.8-10.6)
[2017-05-19] MEDS ORDERED: ACETAMINOPHEN TAB 325 MG TAB PO STA (05:29)
[2017-05-19 05:33] LABS: ALT 29 U/L (9-52); AST 17 U/L (14-36); Alkaline Phosphatase 70 U/L (38-126); Anion Gap 12 mmol/L; Blood Urea Nitrogen 24 mg/dL (7-17); Calcium 9.5 mg/dL (8.4-10.2); Carbon Dioxide 27 mmol/L (22-30); Chloride 94 mmol/L (98-107); Glucose 113 mg/dL (74-99); Sodium 133 mmol/L (137-145); Total Bilirubin 0.5 mg/dL (0.2-1.3); Total Protein 6.6 g/dL (6.3-8.2)
[2017-05-19 05:35] LABS: D-Dimer 0.46 mg/L FEU (<0.60)
[2017-05-19 05:39] LABS: INR 0.9 (<1.2); Prothrombin Time 9.5 sec (9.0-12.0)
--- NOTE | 2017-05-19 05:42 | XR ---
EXAM: XR Chest, 1 View CLINICAL HISTORY: Reason: chest pain. TECHNIQUE: Frontal view of the chest. COMPARISON: May 09, 2017. FINDINGS: Lungs: Hyperinflated lungs, consistent with COPD. Calcified granuloma in right midlung, stable. Incidental nipple shadows projected over the lower lungs. No focal consolidative process. Biapical scarring and retraction again noted. Pleural space: Unremarkable. No pneumothorax. Heart: Cardiac silhouette is within normal limits . No evidence of failure. Mediastinum: Unremarkable. Bones/joints: Scoliosis. IMPRESSION: No focal consolidative process or pleural effusions. COPD changes.
[2017-05-19 06:09] LABS: Creatine Kinase MB 2.6 ng/mL (0.0-2.4); Troponin I 0.07 ng/mL (0.000-0.034)
[2017-05-19] MEDS ORDERED: SODIUM CHLORIDE 0.9% 1,000 ML IV SCH (06:15)
[2017-05-19 06:36] LABS: Partial Thromboplastin Time 20.9 sec (22.0-30.0)
[2017-05-19] MEDS: IPRATROPIUM-ALBUTEROL 3 ML NEB INHALATION SCH ×4 (07:20→20:27)
[2017-05-19] MEDS: LORazepam 2 MG/ML INJ IV PRN ×2 (07:52→15:00)
[2017-05-19] MEDS: HYDROcodone/APAP 7.5-325MG 1 EACH TAB PO PRN ×2 (07:52→18:15)
[2017-05-19] MEDS: AZITHROMYCIN 500 MG TAB PO SCH (07:58)
[2017-05-19] MEDS ORDERED: ALBUTEROL NEBULIZED 2.5 MG/3 ML INHALATION SCH (08:00)
[2017-05-19] MEDS ORDERED: amLODIPine 2.5 MG TAB PO SCH (09:00)
--- NOTE | 2017-05-19 10:38 | P.CNPUL ---
History of Present Illness Consult date: 05/19/17 Reason for consult: dyspnea, cough, COPD, hypoxemia, pulmonary hypertension Chief complaint: Shortness of breath and chest pain History of present illness: Consult dated 05/19/2017 67-year-old female well-known to our service. She has a history of very severe COPD. Heavy smoker. She's got end-stage disease. She both oxygen and steroid dependent. She apparently presented to the emergency room on the nin early in the morning with complaints of increasing shortness of breath. She had severe conversational dyspnea. Her shortness of breath or been going on for about a week and getting much worse. In addition she has a bit of pain in the chest mostly on deep breathing and a nonproductive cough. No fever no chills. No nausea vomiting or diarrhea. When I went into the room to see her, she was on BiPAP. She was feeling better. Not back to baseline. Most of the time, this patient can be seen in the emergency room given some steroids and antibiotics and discharged home. Review of Systems ROS unobtainable: due to mental status (Difficult to obtain review of systems because of the BiPAP device) Past Medical History Past Medical History: Asthma, Cancer, COPD, Eye Disorder, GERD/Reflux, Hyperlipidemia, Hypertension, Myocardial Infarction (ME), Osteoarthritis (OA), Pneumonia, Respiratory Disorder, Sleep Apnea/CPAP/BIPAP Additional Past Medical History / Comment(s): Advanced oxygen-dependent COPD with chronic hypoxic respiratory failure and with multiple hospitalization for COPD exacerbations, chronic hypoxic respiratory failure with home O2 at 5L/NC, born with a single left kidney, previous ME, PUD, bilateral glaucoma, skin cancer, previous history of bowel obstruction, 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 Last Myocardial Infarction Date:: 2011? History of Any Multi-Drug Resistant Organisms: None Reported Past Surgical History: Appendectomy, Back Surgery, Bowel Resection, Section, Hysterectomy, Orthopedic Surgery Additional Past Surgical History / Comment(s): 10/28/15 anterior cervical decompression fusion C3-4,C4-5,C5-6 with NIM cord monitoring, BACK SURGERY lami / FUSION/discectomy, manolo CATARACT SURGERY, LASER EYE SURGERY FOR GLAUCOMA., RIGHT KNEE SURGERY(fx kneecap), cervical surgery and has bars and screws in the neck, bronchoscopy, EGD Past Anesthesia/Blood Transfusion Reactions: No Reported Reaction Smoking Status: Former smoker - Past Family History Mother Family Medical History: Myocardial Infarction (ME) Additional Family Medical History / Comment(s): Mother had a ME in her 50's Father Family Medical History: No Reported History Additional Family Medical History / Comment(s): FORM OLD AGE Brother(s) Family Medical History: Asthma, COPD Sister(s) Family Medical History: Asthma, COPD Medications and Allergies Home Medications Medication Instructions Recorded Confirmed Type HYDROcodone/APAP 7.5-325MG [[place] 1 tab PO Q8H PRN 06/12/16 05/19/17 History 7.5-325] Budesonide-Formot 160-4.5 Mcg 2 puff INHALATION RT-BID #1 inh 02/23/17 05/19/17 Rx [Symbicort 160-4.5 Mcg Inhaler] LORazepam [Ativan] 1 mg PO HS 04/29/17 05/19/17 History amLODIPine [Norvasc] 2.5 mg PO DAILY 04/29/17 05/19/17 History Omeprazole [PriLOSEC] 20 mg PO BID 05/19/17 05/19/17 History Allergies Allergy/AdvReac Type Severity Reaction Status Date / Time No Known Allergies Allergy Verified 05/19/17 06:41 Physical Exam Osteopathic Statement: *. No significant issues noted on an osteopathic structural exam other than those noted in the History and Physical/Consult. Vitals: Vital Signs Temp Pulse Pulse Resp BP BP Pulse Ox 05/19/17 09:58 98.4 F 115 H 20 143/79 98 05/19/17 07:33 122 H 05/19/17 07:20 120 H 05/19/17 06:27 98.6 F 120 H 30 H 134/58 98 05/19/17 05:07 148 H 40 H 173/98 97 05/19/17 04:52 159 H 05/19/17 04:40 153 H 05/19/17 04:39 102.2 F H 150 H 32 H 192/95 94 L Intake and Output 05/18/17 05/19/17 05/19/17 22:59 06:59 14:59 Intake Total 75 Output Total 100 Balance -25 Intake: Intake, IV Titration 75 Amount Sodium Chloride 0.9% 1, 75 000 ml @ 75 mls/hr IV . [id number] [facility] Rx#:[id number] Output: Urine 100 Other: Voiding Method Bedside Commode Bedpan # Voids 1 Weight 40.37 kg The patient is profoundly short of breath. BiPAP mask in place. Difficult to assess her. Major complaint of shortness of breath. HEENT examination is grossly unremarkable. Mucous membranes are moist. No oral lesions. Neck supple. Full range of motion. No adenopathy thyromegaly or neck vein distention. Cardiovascular examination reveals regular rhythm rate. S1-S2 normal. No S3 or S4. No obvious murmur noted. Heart rates 100. Lungs reveal coarse bilateral lateral breath sounds. Coarse bilateral rhonchi are noted. Breath sounds are diminished. There is prolongation on forced maneuver. There is wheezing on forced maneuver.. Abdomen soft bowel sounds are heard. No masses or tenderness. Extremities are intact. No cyanosis clubbing or edema. Skin is without rash or lesion. Neurologic examination is brief but nonfocal. Results - Laboratory Findings CBC and BMP: 05/19/17 05:05 05/19/17 05:05 PT/INR, D-dimer PT 9.5 sec (9.0-12.0) 05/19/17 05:05 INR 0.9 (<1.2) 05/19/17 05:05 D-Dimer 0.46 mg/L FEU (<0.60) 05/19/17 05:05 Abnormal lab findings: Abnormal Labs 05/19/17 05/19/17 05/19/17 05:05 05:05 05:05 WBC 15.8 H Neutrophils # 12.7 H APTT Sodium 133 L Chloride 94 L BUN 24 H Glucose 113 H CK-MB (CK-2) 2.6 H* Troponin I 0.070 H* 05/19/17 05:05 WBC Neutrophils # APTT 20.9 L Sodium Chloride BUN Glucose CK-MB (CK-2) Troponin I - Diagnostic Findings Chest x-ray: image reviewed (Labs x-rays a medications are all reviewed. The patient is interviewed and examined.) Assessment and Plan Assessment: Assessment Hypoxemic respiratory failure secondary to COPD exacerbation History of severe end-stage oxygen and steroid dependent COPD with multiple hospital admissions. Gastroesophageal reflux disease Hyperlipidemia Myocardial infarction Hypertension Osteoarthritis History of pneumonia History of sleep apnea syndrome. History of skin cancer Plan: Plan dated 05/19/2017 The patient is on all the usual medications. I review the labs x-rays and medications. Chest x-ray does not reveal any acute abnormalities. The patient will get DuoNeb 4 times a day and when necessary. We'll also provide her with Pulmicort 1 mg twice a day mixed with performist. We'll make sure that she gets systemic corticosteroids and some oral antibiotics. Prognosis is very poor. Time with Patient: Greater than 30
[2017-05-19] MEDS: NITROGLYCERIN OINT 1 INCH/GM PACKET TOPICAL SCH ×3 (14:54→23:10)
[2017-05-19] MEDS ORDERED: ASPIRIN 81 MG ONE (14:57)
[2017-05-19] MEDS: LEVOFLOXACIN 500 MG TAB PO SCH (15:00)
[2017-05-19] MEDS: NITROGLYCERIN SL TABS 0.4 MG TAB SUBLINGUAL ONE ×2 (15:00→15:07)
[2017-05-19] MEDS: methylPREDNISolone SOD SUCCI 125 MG/2 ML VIAL IV SCH ×3 (15:00→23:10)
[2017-05-19] MEDS: ASPIRIN 81 MG PO SCH (15:15)
[2017-05-19] MEDS: HEPARIN SOD,PORK IN 0.45% NACL 25,000 UNIT in 0.45% NACL 1 500ML.BAG IV SCH (16:11)
--- NOTE | 2017-05-19 16:25 | HP ---
HISTORY AND PHYSICAL CHIEF COMPLAINTS: Shortness of breath and chest pain. HISTORY OF PRESENT ILLNESS: This 67-year-old woman with a past medical history of asthma, end-stage COPD, history of GERD, hypertension, hyperlipidemia, history of myocardial infarction, being followed by Dr. Cornejo and Dr. Carrero in the outpatient setting, has COPD. Patient has had several hospital admissions. Currently patient is complaining of shortness of breath and cough with sputum for the last 3 days. The patient also complains of pain in the anterior part of chest. Patient came to [facility] and was admitted for further evaluation. The pain is not radiating, mild to moderate in intensity, and the troponins are negative. There is no history of any fever, rigor or chills. No history of headache, loss of consciousness, seizures. PAST MEDICAL HISTORY: 1. History of asthma. 2. COPD. 3. History of GERD. 4. Hypertension. 5. Hyperlipidemia. 6. History of sleep apnea. MEDICATIONS PRIOR TO ADMISSION: 1. Prilosec 20 mg p.o. b.i.d. 2. Norvasc 2.5 mg daily. 3. Ativan 1 mg at bedtime. 4. Hydrocodone 7.5 q.8 p.r.n. 5. Symbicort 160/4.5 two puffs b.i.d. ALLERGIES: NONE. FAMILY HISTORY: History of myocardial infarction in the family. SOCIAL HISTORY: Previous history of smoking. Occasional alcohol intake. REVIEW OF SYSTEMS: ENT: Diminished hearing. Diminished vision. CARDIOVASCULAR SYSTEM: As mentioned earlier. RESPIRATORY SYSTEM: As mentioned earlier. GI: No nausea, vomiting. : No dysuria or retention. NERVOUS SYSTEM: No numbness, weakness. ALLERGY/IMMUNOLOGY: No asthma, hayfever. MUSCULOSKELETAL: As mentioned earlier. HEMATOLOGY/ONCOLOGY: No history of anemia. ENDOCRINE: No history of diabetes, hypothyroidism. CONSTITUTIONAL: As mentioned earlier. DERMATOLOGY: Negative. RHEUMATOLOGY: Negative. PSYCHIATRY: As mentioned earlier. PHYSICAL EXAMINATION: Patient is alert and oriented x3. Pulse 105, blood pressure 116/68, respiration 20, temperature 98 degrees, pulse ox 100% on BiPAP. BiPAP settings are noted. HEENT: Conjunctivae normal. Oral mucosa moist. NECK: No jugular venous distention. No carotid bruit. No lymph node enlargement. CARDIOVASCULAR SYSTEM: S1, S2 muffled. RESPIRATORY SYSTEM: Breath sounds diminished at the bases. A few scattered rhonchi and crackles. Expiratory wheezing is noted. Breathing efforts are markedly increased. ABDOMEN: Soft, scaphoid, non-tender. No mass palpable. LEGS: No edema. No swelling. NERVOUS SYSTEM: Higher functions as mentioned earlier. Moves all 4 limbs. Mild diffuse weakness. LYMPHATICS: No lymph node palpable in neck, axillae or groin. SKIN: No ulcer, rash, bleeding. LABS: WBC 15.8, hemoglobin 14.8. Sodium 133. Troponins are noted. ASSESSMENT: 1. Chronic obstructive pulmonary disease, acute exacerbation, with acute purulent tracheobronchitis with acute on chronic hypoxic respiratory failure. 2. Chest pain with troponin 0.737; possible acute ces-RW-temnnri-elevation myocardial infarction. 3. Hyponatremia. 4. Increased white count. 5. History of asthma, chronic obstructive pulmonary disease. 6. History of gastroesophageal reflux disease. 7. Hypertension. 8. Hyperlipidemia. 9. History of myocardial infarction. 10.History of pneumonia. 11.Sleep apnea. 12.History of advanced end-stage chronic obstructive pulmonary disease. 13.History of chronic hypoxic respiratory failure with home oxygen at 5 liters. 14.History of bilateral glaucoma. RECOMMENDATIONS AND DISCUSSION: In this 67-year-old woman who presented with multiple complex medical issues, we will monitor the patient closely, continue the current medications, continue with symptomatic treatment. At this time I recommend continuing with bronchodilators , IV steroids and empiric antibiotics. Closely follow with Pulmonary. Guarded prognosis because of multiple complex medical issues. Further recommendations to follow. A copy of this dictation is being forwarded to Dr. Cornejo, who is the primary physician. MMODL / IJN: [id number] / MI
[2017-05-19 16:53] LABS: Glucose,Whole Blood 144 mg/dL (75-99)
[2017-05-19] MEDS: INSULIN ASPART 100 UNIT/ML 1 ML 10 ML VIAL SQ SCH ×2 (18:14→20:47)
[2017-05-19] MEDS: MAG HYDROX/AL HYDROX/SIMETH 30 ML CUP PO PRN (18:15)
[2017-05-19 19:29] LABS: Appearance,Urine Clear (Clear); Bilirubin,Urine Negative (Negative); Blood,Urine Negative (Negative); Color,Urine Yellow; Glucose,Urine (UA) 3+ (Negative); Granular Casts,Urine 3 /lpf (0); Ketones,Urine Negative (Negative); Leukocyte Esterase,Urine Negative (Negative); Mucus,Urine Rare /hpf; Nitrite,Urine Negative (Negative); Oval Fat Bodies,Urine Rare /hpf; PH, Urine 5.5 (5.0-8.0); Protein,Urine 1+ (Negative); RBC,Urine 1 /hpf (0-5); Specific Gravity,Urine 1.023 (1.001-1.035); Squamous Epithelial Cell,Urine 2 /hpf (0-4); Urobilinogen,Urine <2.0 mg/dL (<2.0); WBC,Urine 1 /hpf (0-5)
[2017-05-19 20:15] LABS: Hemoglobin A1C 5.3 % (4.0-6.0)
[2017-05-19] MEDS: BUDESONIDE 1 MG/2 ML NEBU INHALATION SCH (20:24)
[2017-05-19] MEDS: FORMOTEROL FUMARATE 20 MCG/2 ML NEBU INHALATION SCH (20:24)
[2017-05-19 20:26] LABS: Glucose,Whole Blood 149 mg/dL (75-99)
[2017-05-19] MEDS: LORazepam 1 MG TAB PO SCH (20:46)
[2017-05-19] MEDS ORDERED: PANTOPRAZOLE 40 MG/10 ML VIAL IVP SCH (21:00)
[2017-05-19] MEDS ORDERED: PANTOPRAZOLE 40 MG TABLET PO SCH (21:00)
[2017-05-20] MEDS: IPRATROPIUM-ALBUTEROL 3 ML NEB INHALATION SCH ×5 (05:34→21:00)
[2017-05-20] MEDS: NITROGLYCERIN OINT 1 INCH/GM PACKET TOPICAL SCH ×2 (06:10→11:44)
[2017-05-20] MEDS: methylPREDNISolone SOD SUCCI 125 MG/2 ML VIAL IV SCH ×4 (06:10→23:23)
[2017-05-20] MEDS: PANTOPRAZOLE 40 MG TABLET PO SCH ×2 (06:11→18:40)
[2017-05-20] MEDS: INSULIN ASPART 100 UNIT/ML 1 ML 10 ML VIAL SQ SCH ×4 (06:16→21:41)
[2017-05-20 06:20] LABS: Glucose,Whole Blood 141 mg/dL (75-99)
[2017-05-20] MEDS: LORazepam 2 MG/ML INJ IV PRN ×2 (06:29→15:29)
[2017-05-20 06:58] LABS: Basophils % (A) 0 %; Eosinophils % (A) 0 %; HCT 37.7 % (34.0-46.0); Hypochromasia Slight; Lymphocytes # (A) 0.3 k/uL (1.0-4.8); Lymphocytes % (A) 4 %; MCH 29.5 pg (25.0-35.0); MCHC 30.2 g/dL (31.0-37.0); MCV 97.4 fL (80.0-100.0); Mean Platelet Volume 7.1; Monocytes # (A) 0.3 k/uL (0-1.0); Monocytes % (A) 3 %; Neutrophils # (A) 8.1 k/uL (1.3-7.7); Neutrophils % (A) 92 %; Platelet Count 236 k/uL (150-450); RBC 3.87 m/uL (3.80-5.40); RDW 14.4 % (11.5-15.5); WBC 8.8 k/uL (3.8-10.6)
[2017-05-20 07:04] LABS: HGB 11.4 gm/dL (11.4-16.0)
[2017-05-20 07:13] LABS: Anion Gap 5 mmol/L; Blood Urea Nitrogen 24 mg/dL (7-17); Calcium 8.6 mg/dL (8.4-10.2); Carbon Dioxide 26 mmol/L (22-30); Chloride 101 mmol/L (98-107); Glucose 127 mg/dL (74-99); Potassium 4.9 mmol/L (3.5-5.1); Sodium 132 mmol/L (137-145)
[2017-05-20] MEDS: BUDESONIDE 1 MG/2 ML NEBU INHALATION SCH ×2 (08:26→20:54)
[2017-05-20] MEDS: FORMOTEROL FUMARATE 20 MCG/2 ML NEBU INHALATION SCH ×2 (08:26→20:54)
[2017-05-20] MEDS: ASPIRIN 81 MG PO SCH (08:29)
[2017-05-20] MEDS: AZITHROMYCIN 500 MG TAB PO SCH (08:29)
[2017-05-20 11:43] LABS: Glucose,Whole Blood 179 mg/dL (75-99)
[2017-05-20] MEDS: LEVOFLOXACIN 500 MG TAB PO SCH (11:44)
--- NOTE | 2017-05-20 12:17 | P.CRDCN ---
History of Present Illness Consult date: 05/20/17 Requesting physician: Amelia Lujan Reason for Consult (text): chest pain Chief complaint: severe shortness of breath with chest pain History of present illness: Physical pleasant 67-year-old female with history of COPD, quit smoking about 2 weeks ago, hyperlipidemia, hypertension, sleep apnea. Presented to the emergency department with complaint of worsening shortness of breath as well as some chest discomfort. EKG on admission showed sinus tachycardia with a heart rate in the 150s. Patient was hypoxic and has been on a BiPAP. Last echocardiogram in August 2016 showed a normal ejection fraction of 60-65%. NT proBNP is normal at 158. Chest x-ray on admission shows COPD changes with no focal consolidation process or pleural effusions. Labs show normal BUN of 24 and creatinine 0.6. She remains on a BiPAP and appears to be quite comfortable upon examination. She denies further complaints of chest discomfort. She remains quite short of breath. 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 Last Myocardial Infarction Date:: 2011? History of Any Multi-Drug Resistant Organisms: None Reported Past Surgical History: Appendectomy, Back Surgery, Bowel Resection, Section, Hysterectomy, Orthopedic Surgery Additional Past Surgical History / Comment(s): 10/28/15 anterior cervical decompression fusion C3-4,C4-5,C5-6 with NIM cord monitoring, BACK SURGERY lami / FUSION/discectomy, manolo CATARACT SURGERY, LASER EYE SURGERY FOR GLAUCOMA., RIGHT KNEE SURGERY(fx kneecap), cervical surgery and has bars and screws in the neck, bronchoscopy, EGD Past Anesthesia/Blood Transfusion Reactions: No Reported Reaction Smoking Status: Former smoker - Past Family History Mother Family Medical History: Myocardial Infarction (SD) Additional Family Medical History / Comment(s): Mother had a SD in her 50's Father Family Medical History: No Reported History Additional Family Medical History / Comment(s): FORM OLD AGE Brother(s) Family Medical History: Asthma, COPD Sister(s) Family Medical History: Asthma, COPD Medications and Allergies Home Medications Medication Instructions Recorded Confirmed Type HYDROcodone/APAP 7.5-325MG [[place] 1 tab PO Q8H PRN 06/12/16 05/19/17 History 7.5-325] Budesonide-Formot 160-4.5 Mcg 2 puff INHALATION RT-BID #1 inh 02/23/17 05/19/17 Rx [Symbicort 160-4.5 Mcg Inhaler] LORazepam [Ativan] 1 mg PO HS 04/29/17 05/19/17 History amLODIPine [Norvasc] 2.5 mg PO DAILY 04/29/17 05/19/17 History Omeprazole [PriLOSEC] 20 mg PO BID 05/19/17 05/19/17 History Allergies Allergy/AdvReac Type Severity Reaction Status Date / Time No Known Allergies Allergy Verified 05/19/17 06:41 Physical Exam Vitals: Vital Signs Temp Pulse Pulse Pulse Resp BP Pulse Ox 05/20/17 11:50 108 H 05/20/17 11:35 108 H 05/20/17 09:09 104 H 05/20/17 08:40 104 H 05/20/17 08:38 104 H 05/20/17 08:26 108 H 05/20/17 08:00 97.7 F 109 H 24 134/76 100 05/20/17 05:45 100 05/20/17 05:34 98 05/20/17 04:00 97.2 F L 100 19 118/64 98 05/20/17 00:00 97.6 F 103 H 18 115/75 100 05/19/17 21:01 97 05/19/17 20:36 98 05/19/17 20:35 98 05/19/17 20:27 99 100 05/19/17 20:00 97.1 F L 105 H 17 112/64 98 05/19/17 16:42 93 05/19/17 16:32 92 05/19/17 16:00 98.3 F 113 H 22 139/63 98 02/09/18 15:10 111 H 139/63 02/09/18 15:07 112 H 138/82 05/19/17 15:00 113 H 128/86 Intake and Output 05/19/17 05/20/17 05/20/17 22:59 06:59 14:59 Intake Total 650 124.227 41.376 Output Total 250 Balance 400 124.227 41.376 Intake: Intake, IV Titration 450 124.227 41.376 Amount Heparin Sod,Pork in 0.45% 124.227 41.376 NaCl 25,000 unit In 0.45 % NaCl 1 500ml.bag @ 12 UNITS/KG/HR 9.68 mls/hr IV .Q24H LAURA Rx#: [id number] Sodium Chloride 0.9% 1, 450 000 ml @ 75 mls/hr IV . [id number] LAURA Rx#:[id number] Oral 200 Output: Urine 250 Other: Voiding Method Bedside Commode Bedside Commode Bedside Commode Bedpan Bedpan Bedpan # Voids 0 0 Weight 41.3 kg PHYSICAL EXAMINATION: HEENT: Head is atraumatic, normocephalic. Pupils equal, round. Neck is supple. There is no elevated jugular venous pressure. HEART EXAMINATION: Heart sounds regular, S1 and S2 normal. No murmur or gallop heard. CHEST EXAMINATION: Lungs reveal diffuse wheezing throughout. No chest wall tenderness is noted on palpation or with deep breathing. ABDOMEN: Soft, nontender. Bowel sounds are heard. No organomegaly noted. EXTREMITIES: 2+ peripheral pulses with no evidence of peripheral edema and no calf tenderness noted. NEUROLOGIC patient is awake, alert and oriented x3. . Results 05/20/17 06:06 05/20/17 06:06 Cardiac Enzymes 05/19/17 05/19/17 Range/Units 11:04 19:08 Troponin I 0.737 H* 0.493 H* (0.000-0.034) ng/mL Coagulation 05/19/17 05/20/17 05/20/17 Range/Units 19:08 01:10 06:06 APTT 29.1 32.4 H 34.8 H (22.0-30.0) sec CBC 05/20/17 Range/Units 06:06 WBC 8.8 (3.8-10.6) k/uL RBC 3.87 (3.80-5.40) m/uL Hgb 11.4 D (11.4-16.0) gm/dL Hct 37.7 (34.0-46.0) % Plt Count 236 (150-450) k/uL Comprehensive Metabolic Panel 05/20/17 Range/Units 06:06 Sodium 132 L (137-145) mmol/L Potassium 4.9 (3.5-5.1) mmol/L Chloride 101 (98-107) mmol/L Carbon Dioxide 26 (22-30) mmol/L BUN 24 H (7-17) mg/dL Creatinine 0.50 L (0.52-1.04) mg/dL Glucose 127 H (74-99) mg/dL Calcium 8.6 (8.4-10.2) mg/dL Current Medications Generic Name Dose Route Start Last Admin Trade Name Freq PRN Reason Stop Dose Admin Hydrocodone Bitart/Acetaminophen 1 each 05/19/17 06:13 05/19/17 18:15 [place] 7.5-325 PO 1 each Q8H PRN Administration Moderate Pain Al Hydroxide/Mg Hydroxide 30 ml 05/19/17 18:03 05/19/17 18:15 Maalox PO 30 ml Q4HR PRN Administration GI Upset Albuterol/Ipratropium 3 ml 05/19/17 08:00 05/20/17 11:35 Duoneb 0.5 Mg-3 Mg/3 Ml Soln INHALATION 3 ml RT-QID LAURA Administration Albuterol/Ipratropium 3 ml 05/20/17 05:29 Duoneb 0.5 Mg-3 Mg/3 Ml Soln INHALATION RT-Q4H PRN Shortness Of Breath Or Wheezing Aspirin 81 mg 05/19/17 15:00 05/20/17 08:29 Aspirin PO 81 mg DAILY LAURA Administration Azithromycin 500 mg 05/19/17 09:00 05/20/17 08:29 Zithromax PO 500 mg DAILY LAURA Administration Budesonide 1 mg 05/19/17 20:00 05/20/17 08:26 Pulmicort INHALATION 1 mg RT-BID LAURA Administration Formoterol Fumarate 20 mcg 05/19/17 20:00 05/20/17 08:26 Perforomist INHALATION 20 mcg RT-BID LAURA Administration Heparin Sodium/Sodium Chloride 500 mls @ 9.68 mls/hr 05/19/17 15:30 05/20/17 08:26 25,000 unit/ Sodium Chloride IV 18.71 units/kg/hr .Q24H LAURA 15.11 mls/hr Protocol Titration 12 UNITS/KG/HR Insulin Aspart 0 unit 05/19/17 17:30 05/20/17 06:16 Novolog SQ 1 unit ACHS LAURA Administration Protocol Isosorbide Mononitrate 15 mg 05/21/17 09:00 Imdur PO DAILY LAURA Levofloxacin 500 mg 05/19/17 12:00 05/20/17 11:44 Levaquin PO 500 mg Q24H LAURA Administration Lorazepam 1 mg 05/19/17 21:00 05/19/17 20:46 Ativan PO 1 mg HS LAURA Administration Lorazepam 0.5 mg 05/19/17 07:30 05/20/17 06:29 Ativan IV 0.5 mg Q8HR PRN Administration Anxiety Methylprednisolone Sodium Succinate 60 mg 05/19/17 12:00 05/20/17 11:44 Solu-Medrol IV 60 mg Q6HR LAURA Administration Pantoprazole Sodium 40 mg 05/20/17 07:30 05/20/17 06:11 Protonix PO 40 mg AC-BID LAURA Administration Intake and Output 05/19/17 05/20/17 05/20/17 22:59 06:59 14:59 Intake Total 650 124.227 41.376 Output Total 250 Balance 400 124.227 41.376 Intake: Intake, IV Titration 450 124.227 41.376 Amount Heparin Sod,Pork in 0.45% 124.227 41.376 NaCl 25,000 unit In 0.45 % NaCl 1 500ml.bag @ 12 UNITS/KG/HR 9.68 mls/hr IV .Q24H LAURA Rx#: [id number] Sodium Chloride 0.9% 1, 450 000 ml @ 75 mls/hr IV . [id number] LAURA Rx#:[id number] Oral 200 Output: Urine 250 Other: Voiding Method Bedside Commode Bedside Commode Bedside Commode Bedpan Bedpan Bedpan # Voids 0 0 Weight 41.3 kg 05/20/17 06:06 05/20/17 06:06 EKG Interpretations (text) Sinus tachycardia Assessment and Plan Assessment: #1 hypoxemic respiratory failure secondary to acute exacerbation COPD #2 non-STEMI, may represent a type II event secondary to hypoxemia #3 nicotine dependence, recently quit smoking 2 weeks ago #4 hypertension 5 hyperlipidemia #6 end-stage COPD, oxygen dependent #7 sleep apnea Plan: From cardiology's perspective, at this time patient is not a candidate for aggressive cardiac workup. Recommend medical management. Continue aspirin 81 mg by mouth daily. We will discontinue nitro paste and start the patient on Imdur 15 mg by mouth daily. continue to follow the patient and provide further recommendations accordingly. GRAIN GRADER note has been reviewed, I agree with a documented findings and plan of care. Patient was seen and examined.
--- NOTE | 2017-05-20 13:50 | ECHOF ---
Referral Reason:elevated troponins MEASUREMENTS -------- HEIGHT: 154.9 cm WEIGHT: 41.3 kg BP: 134/76 IVSd: 0.8 cm (0.6 - 1.1) LVIDd: 3.3 cm (3.9 - 5.3) LVPWd: 1.0 cm (0.6 - 1.1) IVSs: 1.2 cm LVIDs: 2.5 cm LVPWs: 1.5 cm Ao Diam: 3.1 cm (2.0 - 3.7) AV Cusp: 1.3 cm (1.5 - 2.6) LA Diam: 2.5 cm (2.7 - 3.8) MV EXCURSION: 10.933 mm (> 18.000) MV EF SLOPE: 56 mm/s (70 - 150) EPSS: 1.6 cm MV E Torsten: 0.67 m/s MV DecT: 160 ms MV A [place]: 0.87 m/s MV E/A Ratio: 0.77 RAP: 5.00 mmHg RVSP: 24.97 mmHg FINDINGS -------- Sinus rhythm with extra systolic beats. This was a technically adequate study. The left ventricular size is normal. There is borderline concentric left ventricular hypertrophy. Overall left ventricular systolic function is mildly impaired with, an EF between 45 - 50 %. The right ventricle is normal in size and function. The left atrium is normal in size. The right atrium is normal in size. Aortic valve is trileaflet and is mildly thickened. The mitral valve leaflets are mildly thickened. Mild mitral annular calcification present. There is trace mitral regurgitation. Mild tricuspid regurgitation present. The right ventricular systolic pressure, as measured by Doppl er, is 24.97mmHg. Pulmonic valve appears structurally normal. The aortic root size is normal. The pericardium is normal. CONCLUSIONS -------- 1. Sinus rhythm with extra systolic beats. 2. This was a technically adequate study. 3. The left ventricular size is normal. 4. There is borderline concentric left ventricular hypertrophy. 5. Overall left ventricular systolic function is mildly impaired with, an EF between 45 - 50 %. 6. The right ventricle is normal in size and function. 7. The left atrium is normal in size. 8. The right atrium is normal in size. 9. Aortic valve is trileaflet and is mildly thickened. 10. The mitral valve leaflets are mildly thickened. 11. Mild mitral annular calcification present. 12. There is trace mitral regurgitation. 13. Mild tricuspid regurgitation present. 14. The right ventricular systolic pressure, as measured by Doppler, is 24.97mmHg. 15. Pulmonic valve appears structurally normal. 16. The aortic root size is normal. 17. The pericardium is normal. STORAGE MANAGEMENT CONSULTANT: Teri Olivera RDCS
--- NOTE | 2017-05-20 13:56 | P.PN ---
Subjective Progress Note Date: 05/20/17 Principal diagnosis: Acute exacerbation of severe end-stage chronic obstructive pulmonary disease. Consult dated 05/19/2017 67-year-old female well-known to our service. She has a history of very severe COPD. Heavy smoker. She's got end-stage disease. She both oxygen and steroid dependent. She apparently presented to the emergency room on the ninth early in the morning with complaints of increasing shortness of breath. She had severe conversational dyspnea. Her shortness of breath or been going on for about a week and getting much worse. In addition she has a bit of pain in the chest mostly on deep breathing and a nonproductive cough. No fever no chills. No nausea vomiting or diarrhea. When I went into the room to see her, she was on BiPAP. She was feeling better. Not back to baseline. Most of the time, this patient can be seen in the emergency room given some steroids and antibiotics and discharged home. Progress note dated 05/20/2017 The patient is seen again today in follow-up on the selective care unit. She is awake and alert. She is still quite dyspneic on very minimal exertion. She is on the BiPAP currently 12/6 and 35% FiO2. She is maintaining O2 saturations up to 100%. She is continued on DuoNeb inhalations 4 times a day and when necessary, Pulmicort and Perforomist inhalations twice a day, empiric antibiotics in the form of azithromycin. Remains on IV Solu-Medrol 60 mg every 6 hours. She's been afebrile. Still tachypneic, tachycardic. No leukocytosis. Hemoglobin 11.4. Creatinine 0.50. She was ruled in as a non-ST segment elevation myocardial infarction and is currently on heparin drip. Objective - Vital Signs Vital signs: Vital Signs Temp 97.5 F L 05/20/17 12:00 Pulse 105 H 05/20/17 12:00 Resp 24 05/20/17 12:00 BP 125/68 05/20/17 12:00 Pulse Ox 99 05/20/17 12:00 Intake & Output 05/19/17 05/20/17 05/20/17 18:59 06:59 18:59 Intake Total 755 224.227 215.376 Output Total 350 Balance 405 224.227 215.376 Weight 40.37 kg 41.3 kg Intake: IV 24 Heparin Sod,Pork in 0.45% 24 NaCl 25,000 unit In 0.45 % NaCl 1 500ml.bag @ 12 UNITS/KG/HR 9.68 mls/hr IV .Q24H [facility]URA Rx#: [id number] Intake, IV Titration 525 124.227 191.376 Amount Heparin Sod,Pork in 0.45% 124.227 41.376 NaCl 25,000 unit In 0.45 % NaCl 1 500ml.bag @ 12 UNITS/KG/HR 9.68 mls/hr IV .Q24H LAURA Rx#: [id number] Sodium Chloride 0.9% 1, 525 150 000 ml @ 75 mls/hr IV . [id number] LAURA Rx#:[id number] Oral 230 100 Output: Urine 350 Other: Voiding Method Bedside Commode Bedside Commode Bedside Commode Bedpan Bedpan Bedpan # Voids 1 0 - Exam The patient is profoundly short of breath. BiPAP mask in place. Difficult to assess her. Major complaint of shortness of breath. HEENT examination is grossly unremarkable. Mucous membranes are moist. No oral lesions. Neck supple. Full range of motion. No adenopathy thyromegaly or neck vein distention. Cardiovascular examination reveals regular rhythm rate. S1-S2 normal. No S3 or S4. No obvious murmur noted. Heart rates 100. Lungs reveal coarse bilateral lateral breath sounds. Coarse bilateral rhonchi are noted. Breath sounds are diminished. There is prolongation on forced maneuver. There is wheezing on forced maneuver.. Abdomen soft bowel sounds are heard. No masses or tenderness. Extremities are intact. No cyanosis clubbing or edema. Skin is without rash or lesion. Neurologic examination is brief but nonfocal. - Labs CBC & Chem 7: 05/20/17 06:06 05/20/17 06:06 Labs: Abnormal Lab Results - Last 24 Hours (Table) 05/19/17 05/19/17 05/19/17 Range/Units 16:51 19:04 19:08 MCHC (31.0-37.0) g/dL Neutrophils # (1.3-7.7) k/uL Lymphocytes # (1.0-4.8) k/uL APTT (22.0-30.0) sec Sodium (137-145) mmol/L BUN (7-17) mg/dL Creatinine (0.52-1.04) mg/dL Glucose (74-99) mg/dL POC Glucose (mg/dL) 144 H (75-99) mg/dL Troponin I 0.493 H* (0.000-0.034) ng/mL Urine Protein 1+ H (Negative) Urine Glucose (UA) 3+ H (Negative) Urine Mucus Rare H (None) /hpf Ur Oval Fat Bodies Rare H (None) /hpf 05/19/17 05/20/17 05/20/17 Range/Units 20:23 01:10 06:06 MCHC 30.2 L (31.0-37.0) g/dL Neutrophils # 8.1 H (1.3-7.7) k/uL Lymphocytes # 0.3 L (1.0-4.8) k/uL APTT 32.4 H (22.0-30.0) sec Sodium (137-145) mmol/L BUN (7-17) mg/dL Creatinine (0.52-1.04) mg/dL Glucose (74-99) mg/dL POC Glucose (mg/dL) 149 H (75-99) mg/dL Troponin I (0.000-0.034) ng/mL Urine Protein (Negative) Urine Glucose (UA) (Negative) Urine Mucus (None) /hpf Ur Oval Fat Bodies (None) /hpf 05/20/17 05/20/17 05/20/17 Range/Units 06:06 06:06 06:13 MCHC (31.0-37.0) g/dL Neutrophils # (1.3-7.7) k/uL Lymphocytes # (1.0-4.8) k/uL APTT 34.8 H (22.0-30.0) sec Sodium 132 L (137-145) mmol/L BUN 24 H (7-17) mg/dL Creatinine 0.50 L (0.52-1.04) mg/dL Glucose 127 H (74-99) mg/dL POC Glucose (mg/dL) 141 H (75-99) mg/dL Troponin I (0.000-0.034) ng/mL Urine Protein (Negative) Urine Glucose (UA) (Negative) Urine Mucus (None) /hpf Ur Oval Fat Bodies (None) /hpf 05/20/17 Range/Units 11:41 MCHC (31.0-37.0) g/dL Neutrophils # (1.3-7.7) k/uL Lymphocytes # (1.0-4.8) k/uL APTT (22.0-30.0) sec Sodium (137-145) mmol/L BUN (7-17) mg/dL Creatinine (0.52-1.04) mg/dL Glucose (74-99) mg/dL POC Glucose (mg/dL) 179 H (75-99) mg/dL Troponin I (0.000-0.034) ng/mL Urine Protein (Negative) Urine Glucose (UA) (Negative) Urine Mucus (None) /hpf Ur Oval Fat Bodies (None) /hpf Assessment and Plan Assessment: Assessment Acute on chronic hypoxemic respiratory failure secondary to COPD exacerbation History of severe end-stage oxygen and steroid dependent COPD with multiple hospital admissions. Chronic and ongoing tobacco dependence. Non-ST segment elevation myocardial infarction, currently on heparin drip. Hypertension Hyperlipidemia Osteoarthritis History of pneumonia History of sleep apnea syndrome. History of skin cancer Gastroesophageal reflux disease Plan The patient was seen and evaluated by Dr. Carrero. We'll continue with her current regimen of DuoNeb inhalations 4 times a day and when necessary, Pulmicort and Perforomist inhalations twice a day, IV Solu-Medrol 60 mg every 6 hours. She is on empiric antibiotics in the form of azithromycin. Cardiology is on the case regarding the non-ST segment elevation myocardial infarction. She is currently on a heparin drip. Overall prognosis remains quite poor. She is again educated regarding the importance of complete smoking cessation. She is a DO NOT RESUSCITATE/DO NOT INTUBATE CODE STATUS. We'll continue to follow and make further recommendations based on her clinical status. I, the cosigning physician, performed a history & physical examination of the patient. Lungs sounds have bilateral end expiratory wheeze. Diminished throughout.. Maintaining good O2 saturations in the 90s on 35% FiO2 and a BiPAP of 12/6. I discussed the assessment and plan of care with my nurse practitioner, Modesta Colon. I attest to the above note as dictated by her.
[2017-05-20 17:15] LABS: Glucose,Whole Blood 124 mg/dL (75-99)
[2017-05-20] MEDS: HYDROcodone/APAP 7.5-325MG 1 EACH TAB PO PRN (17:21)
[2017-05-20] MEDS: HEPARIN SOD,PORK IN 0.45% NACL 25,000 UNIT in 0.45% NACL 1 500ML.BAG IV SCH ×2 (17:24→23:25)
--- NOTE | 2017-05-20 17:24 | XR ---
EXAMINATION TYPE: XR shoulder complete LT DATE OF EXAM: 05/20/2017 CLINICAL HISTORY: Left shoulder pain. TECHNIQUE: Three views of the left shoulder are obtained. COMPARISON: None. FINDINGS: There is no acute fracture/dislocation evident in the left shoulder. The acromioclavicula r and glenohumeral joint spaces appear within normal limits. The visualized ribs are intact and unre markable. Fusion hardware is seen in the cervical spine. Degenerative changes are noted at the acromi oclavicular joint. IMPRESSION: There is no acute fracture or dislocation in the left shoulder.
--- NOTE | 2017-05-20 17:26 | XR ---
EXAMINATION TYPE: XR ribs LT w pa chest xray DATE OF EXAM: 05/20/2017 CLINICAL HISTORY: Chest pain TECHNIQUE: Single view of the chest and 2 views left ribs were obtained. COMPARISON: May 19, 2017. FINDINGS: The appearance of the chest is unchanged from compared to the previous study. There is no pneumothorax or pleural effusion and the cardiac silhouette is within normal limits. No acute fractur e or subluxation is seen. An acute displaced rib fracture is not seen. IMPRESSION: No acute abnormality is seen.
--- NOTE | 2017-05-20 18:08 | PN ---
PROGRESS NOTE DATE OF SERVICE: 05/20/2017 This is a 67-year-old woman who was admitted with COPD acute exacerbation, acute hypoxic respiratory failure, is being closely monitored. Patient still on BiPAP at this time. Pulmonary is following the patient closely as well as Cardiology. The patient is complaining of chest pain. Troponin is also elevated indicating the possibility of acute non ST-segment elevation infarction, which was thought to be type 2 secondary to hypoxemia per Cardiology. Patient is also complaining of left shoulder pain, also reports a fall recently. No chest pain. No palpitations currently. PAST MEDICAL HISTORY: Reviewed. REVIEW OF SYSTEMS: CARDIOVASCULAR SYSTEM: As mentioned earlier. RESPIRATORY: As mentioned earlier. GI: As mentioned earlier. : No dysuria. NERVOUS SYSTEM: As mentioned earlier. CURRENT MEDICATIONS: 1. [place] 7.5 q.8 p.r.n. 2. Albuterol 3 mL q.i.d. p.r.n. 3. DuoNeb 0.5 mg daily. 4. Aspirin 81 mg p.o. daily. 5. Zithromax 500 mg p.o. daily. 6. Pulmicort 1 mg b.i.d. 7. Perforomist 20 mcg b.i.d. 8. Heparin 500 subcu daily. 9. NovoLog. 10.Imdur 50 mg. 11.Levaquin 500 mg daily. 12.Ativan. 13.Solu-Medrol 60 IV q.6 hours. 14.Protonix 40 mg p.o. b.i.d. PHYSICAL EXAM: Patient is alert, oriented x3. Pulse is 104, blood pressure 130/70, respiration 22, temperature 97.6, pulse ox 94 on 5 L. HEENT: Conjunctivae normal. Oral mucosa moist. Neck is no jugular venous distention. No lymph node enlargement. CARDIOVASCULAR SYSTEM: S1, S2, no S3, no S4. RESPIRATORY: Breath sounds diminished at the bases, bilateral scattered rhonchi, no crackles. Expiratory wheezing also present. Patient is on BiPAP. ABDOMEN: Soft, nontender. No mass palpable. LEGS: No edema, no swelling. NERVOUS SYSTEM: Higher functions as mentioned earlier. Moves all 4 limbs. No focal motor sensory deficit. LYMPHATICS: No lymph enlargement in the neck or axillae. SKIN: No ulcer, rash, bleeding. LABS: WBC 8.8, hemoglobin 11.4, sodium 130, potassium 4.9. ASSESSMENT: 1. Chronic obstructive pulmonary disease acute exacerbation with acute purulent tracheobronchitis, acute on chronic hypoxic respiratory failure. 2. Chest pain with troponin 0.737, possible acute non ST-segment elevation myocardial infarction type 2. 3. Hyponatremia. 4. Left shoulder pain. 5. Increased WBC. 6. History of asthma, chronic obstructive pulmonary disease. 7. History of gastroesophageal reflux disease. 8. Hypertension, essential. 9. Hyperlipidemia. 10.History of myocardial function. 11.History of pneumonia. 12.History of sleep apnea. 13.Advanced end-stage COPD. 14.Chronic hypoxic respiratory failure on home O2 of 5 L. 15.History of bilateral glaucoma. RECOMMENDATION: Recommend to continue current management and continue symptomatic treatment. Continue with bronchodilators and steroids. Continue with the beta blockers. Otherwise closely follow with Pulmonary. Other than that, antiplatelet agents. Otherwise, continue to monitor. Guarded prognosis. Further recommendations to follow. MMODL / IJN: [id number] /
[2017-05-20] MEDS: LORazepam 1 MG TAB PO SCH (20:06)
[2017-05-20] MEDS: METOPROLOL TARTRATE 12.5 MG TAB PO SCH (20:07)
[2017-05-20] MEDS ORDERED: ACETAMINOPHEN TAB 325 MG TAB PO PRN (20:09)
[2017-05-20 21:06] LABS: Glucose,Whole Blood 227 mg/dL (75-99)
[2017-05-20] MEDS: BISACODYL 5 MG TABLET.DR PO PRN (21:41)
[2017-05-21] MEDS: methylPREDNISolone SOD SUCCI 125 MG/2 ML VIAL IV SCH ×4 (06:19→23:18)
[2017-05-21] MEDS: PANTOPRAZOLE 40 MG TABLET PO SCH ×2 (06:20→17:17)
[2017-05-21 06:45] LABS: Glucose,Whole Blood 133 mg/dL (75-99)
[2017-05-21] MEDS: INSULIN ASPART 100 UNIT/ML 1 ML 10 ML VIAL SQ SCH ×4 (06:50→23:17)
[2017-05-21] MEDS: ASPIRIN 81 MG PO SCH (07:32)
[2017-05-21 07:33] LABS: Basophils % (A) 0 %; Eosinophils % (A) 0 %; HCT 35.7 % (34.0-46.0); HGB 11.3 gm/dL (11.4-16.0); Lymphocytes # (A) 0.5 k/uL (1.0-4.8); Lymphocytes % (A) 6 %; MCH 29.9 pg (25.0-35.0); MCHC 31.7 g/dL (31.0-37.0); MCV 94.1 fL (80.0-100.0); Mean Platelet Volume 7.3; Monocytes # (A) 0.2 k/uL (0-1.0); Monocytes % (A) 3 %; Neutrophils # (A) 7.3 k/uL (1.3-7.7); Neutrophils % (A) 90 %; Platelet Count 261 k/uL (150-450); RBC 3.79 m/uL (3.80-5.40); RDW 14.2 % (11.5-15.5); WBC 8.1 k/uL (3.8-10.6)
[2017-05-21] MEDS: ISOSORBIDE MONONITRATE ER 15 MG TAB PO SCH (07:33)
[2017-05-21] MEDS: METOPROLOL TARTRATE 12.5 MG TAB PO SCH ×2 (07:33→21:17)
[2017-05-21] MEDS: AZITHROMYCIN 500 MG TAB PO SCH (07:33)
[2017-05-21] MEDS: LORazepam 2 MG/ML INJ IV PRN ×2 (07:45→17:16)
[2017-05-21 07:54] LABS: Anion Gap 6 mmol/L; Blood Urea Nitrogen 27 mg/dL (7-17); Calcium 8.8 mg/dL (8.4-10.2); Carbon Dioxide 29 mmol/L (22-30); Chloride 102 mmol/L (98-107); Glucose 122 mg/dL (74-99); Potassium 4.6 mmol/L (3.5-5.1); Sodium 137 mmol/L (137-145)
[2017-05-21] MEDS: FORMOTEROL FUMARATE 20 MCG/2 ML NEBU INHALATION SCH ×2 (08:32→19:37)
[2017-05-21] MEDS: IPRATROPIUM-ALBUTEROL 3 ML NEB INHALATION SCH ×4 (08:32→19:36)
[2017-05-21] MEDS: BUDESONIDE 1 MG/2 ML NEBU INHALATION SCH ×2 (08:32→19:37)
--- NOTE | 2017-05-21 11:42 | P.PN ---
Subjective Progress Note Date: 05/21/17 Mrs. Martinez is seen and examined this morning. She is currently on bipap. She continues to c/o shortness of breath and tightness in her chest with breathing. Imdur and nitropaste were started yesterday. Blood pressure has tolerated. Telemetry tracings have been sinus with no evidence of acute arrhythmia. Heparin infusion has been ongoing since 05/19. Objective - Vital Signs Vital signs: Vital Signs Temp 97.5 F L 05/21/17 08:00 Pulse 92 05/21/17 08:57 Resp 24 05/21/17 08:00 BP 156/76 05/21/17 08:00 Pulse Ox 95 05/21/17 08:00 Intake & Output 05/20/17 05/21/17 05/21/17 18:59 06:59 18:59 Intake Total 590.863 90.912 100 Output Total 700 400 Balance -109.137 -309.088 100 Weight 43.3 kg Intake: IV 24 Heparin Sod,Pork in 0.45% 24 NaCl 25,000 unit In 0.45 % NaCl 1 500ml.bag @ 12 UNITS/KG/HR 9.68 mls/hr IV .Q24H [facility] Rx#: [id number] Intake, IV Titration 326.863 90.912 Amount Heparin Sod,Pork in 0.45% 176.863 90.912 NaCl 25,000 unit In 0.45 % NaCl 1 500ml.bag @ 12 UNITS/KG/HR 9.68 mls/hr IV .Q24H [facility] Rx#: [id number] Sodium Chloride 0.9% 1, 150 000 ml @ 75 mls/hr IV . [id number] [facility] Rx#:[id number] Oral 240 100 Output: Urine 700 400 Other: Voiding Method Bedside Commode Bedside Commode Bedside Commode Bedpan Bedpan Bedpan # Voids 0 - Exam blood pressure 156/76 heart rate 90s GENERAL: On Bipap in no acute distress, continues with labored breathing NECK: Supple without JVD or thyromegaly. LUNGS: Diffuse wheezing throughout with course rhonchi, no rales. HEART: Regular rate and rhythm without murmurs, rubs or gallops. S1 and S2 heard. EXTREMITIES: Normal range of motion, no edema. No clubbing or cyanosis. Peripheral pulses intact and strong. - Labs CBC & Chem 7: 05/21/17 06:32 05/21/17 06:32 Labs: Abnormal Lab Results - Last 24 Hours (Table) 05/20/17 05/20/17 05/20/17 Range/Units 11:41 15:26 17:13 RBC (3.80-5.40) m/uL Hgb (11.4-16.0) gm/dL Lymphocytes # (1.0-4.8) k/uL APTT 49.9 H (22.0-30.0) sec BUN (7-17) mg/dL Glucose (74-99) mg/dL POC Glucose (mg/dL) 179 H 124 H (75-99) mg/dL Troponin I (0.000-0.034) ng/mL 05/20/17 05/21/17 05/21/17 Range/Units 21:01 06:32 06:32 RBC 3.79 L (3.80-5.40) m/uL Hgb 11.3 L (11.4-16.0) gm/dL Lymphocytes # 0.5 L (1.0-4.8) k/uL APTT (22.0-30.0) sec BUN (7-17) mg/dL Glucose (74-99) mg/dL POC Glucose (mg/dL) 227 H (75-99) mg/dL Troponin I 0.097 H* (0.000-0.034) ng/mL 05/21/17 05/21/17 05/21/17 Range/Units 06:32 06:32 06:40 RBC (3.80-5.40) m/uL Hgb (11.4-16.0) gm/dL Lymphocytes # (1.0-4.8) k/uL APTT 74.7 H (22.0-30.0) sec BUN 27 H (7-17) mg/dL Glucose 122 H (74-99) mg/dL POC Glucose (mg/dL) 133 H (75-99) mg/dL Troponin I (0.000-0.034) ng/mL Assessment and Plan Assessment: ASSESSMENT 1. Hypoxic respiratory failure secondary to acute exacerbation of COPD 2. Non-STEMI, Type II even secondary to hypoxia 3. Chronic tobacco abuse 4. Hypertension 5. Dyslipidemia 6. End-stage COPD, on bipap 7. Sleep apnea PLAN Continue with medical management. Continue aspirin, imdur and nitropaste for chest pain. Discontinue heparin drip after 48 hrs. No aggressive cardiac work-up currently in the setting of acute respiratory failure. Once this has resolved will consider further outpatient evaluation. Will continue to follow as needed. Nurse Practitioner note has been reviewed, I agree with a documented findings and plan of care. Patient was seen and examined.
--- NOTE | 2017-05-21 11:46 | P.PN ---
Subjective Progress Note Date: 05/21/17 Principal diagnosis: COPD exacerbation/respiratory failure Progress note dated 05/21/2017 This is a 67-year-old female with a history of acute on chronic hypoxemic and hypercapnic respiratory failure. She has severe end-stage COPD which is both oxygen and steroid dependent. Over the last year or so, she said anywhere between 13-15 admissions to the hospital for similar episodes of COPD exacerbation. This is what brought her in again this time. She's been on BiPAP for 2 days without much improvement. She is very short of breath. She also complains of shoulder and rib pain but x-rays are negative. She has history of chronic and ongoing tobacco dependence non-ST segment elevation myocardial infarction hypertension hyperlipidemia osteoarthritis pneumonia sleep apnea syndrome skin cancer and gastroesophageal reflux disease. Again the patient has not made much progress over the last couple of days. She remains on BiPAP. Cardiology is not interested in doing anything acutely with her given the severity of her COPD. That's understandable. Objective - Vital Signs Vital signs: Vital Signs Temp 97.5 F L 05/21/17 08:00 Pulse 92 05/21/17 08:57 Resp 24 05/21/17 08:00 BP 156/76 05/21/17 08:00 Pulse Ox 95 05/21/17 08:00 Intake & Output 05/20/17 05/21/17 05/21/17 18:59 06:59 18:59 Intake Total 590.863 90.912 100 Output Total 700 400 Balance -109.137 -309.088 100 Weight 43.3 kg Intake: IV 24 Heparin Sod,Pork in 0.45% 24 NaCl 25,000 unit In 0.45 % NaCl 1 500ml.bag @ 12 UNITS/KG/HR 9.68 mls/hr IV .Q24H [facility] Rx#: [id number] Intake, IV Titration 326.863 90.912 Amount Heparin Sod,Pork in 0.45% 176.863 90.912 NaCl 25,000 unit In 0.45 % NaCl 1 500ml.bag @ 12 UNITS/KG/HR 9.68 mls/hr IV .Q24H [facility] Rx#: [id number] Sodium Chloride 0.9% 1, 150 000 ml @ 75 mls/hr IV . [id number] [facility] Rx#:[id number] Oral 240 100 Output: Urine 700 400 Other: Voiding Method Bedside Commode Bedside Commode Bedside Commode Bedpan Bedpan Bedpan # Voids 0 - Exam Oriented 3, but the patient's in significant respiratory distress despite the BiPAP. BiPAP mask in place. HEENT examination is grossly unremarkable. . Neck supple. Full range of motion. No adenopathy thyromegaly or neck vein distention. Cardiovascular examination reveals regular rhythm rate. S1-S2 normal. No S3 or S4. No discernible murmur noted. The patient is mildly tachycardic. Lungs reveals severely diminished breath sounds throughout. A few scattered rhonchi. Some high-pitched expiratory wheezes are noted. Breath sounds are equal bilaterally but severely diminished throughout. Abdomen soft bowel sounds are heard. No masses or tenderness. Extremities are intact. No cyanosis clubbing or edema. Skin is without rash or lesion. Neurologic examination is difficult to assess. - Labs CBC & Chem 7: 05/21/17 06:32 05/21/17 06:32 Labs: Abnormal Lab Results - Last 24 Hours (Table) 05/20/17 05/20/17 05/20/17 Range/Units 11:41 15:26 17:13 RBC (3.80-5.40) m/uL Hgb (11.4-16.0) gm/dL Lymphocytes # (1.0-4.8) k/uL APTT 49.9 H (22.0-30.0) sec BUN (7-17) mg/dL Glucose (74-99) mg/dL POC Glucose (mg/dL) 179 H 124 H (75-99) mg/dL Troponin I (0.000-0.034) ng/mL 05/20/17 05/21/17 05/21/17 Range/Units 21:01 06:32 06:32 RBC 3.79 L (3.80-5.40) m/uL Hgb 11.3 L (11.4-16.0) gm/dL Lymphocytes # 0.5 L (1.0-4.8) k/uL APTT (22.0-30.0) sec BUN (7-17) mg/dL Glucose (74-99) mg/dL POC Glucose (mg/dL) 227 H (75-99) mg/dL Troponin I 0.097 H* (0.000-0.034) ng/mL 02/11/18 02/11/18 02/11/18 Range/Units 06:32 06:32 06:40 RBC (3.80-5.40) m/uL Hgb (11.4-16.0) gm/dL Lymphocytes # (1.0-4.8) k/uL APTT 74.7 H (22.0-30.0) sec BUN 27 H (7-17) mg/dL Glucose 122 H (74-99) mg/dL POC Glucose (mg/dL) 133 H (75-99) mg/dL Troponin I (0.000-0.034) ng/mL Assessment and Plan Assessment: Assessment Hypoxemic respiratory failure secondary to COPD exacerbation History of severe end-stage oxygen and steroid dependent COPD with multiple hospital admissions. Gastroesophageal reflux disease Hyperlipidemia Myocardial infarction Hypertension Osteoarthritis History of pneumonia History of sleep apnea syndrome. History of skin cancer Plan: Plan dated 05/19/2017 The patient is on all the usual medications. I review the labs x-rays and medications. Chest x-ray does not reveal any acute abnormalities. The patient will get DuoNeb 4 times a day and when necessary. We'll also provide her with Pulmicort 1 mg twice a day mixed with performist. We'll make sure that she gets systemic corticosteroids and some oral antibiotics. Prognosis is very poor. Plan dated 05/21/2017 The patient is on all her usual medications including short acting beta agonist , short acting muscarinic antagonist, long-acting beta agonist, and inhaled corticosteroids. She also remains on systemic corticosteroids and is on the BiPAP device pretty much 24/7. He's also on oral antibiotics. Prognosis is poor. The patient's x-rays of ribs and shoulder are negative. I did have a conversation with her and told her that she may not make it through this episode. She's had at least 13-15 admissions in the last year for COPD exacerbations. She has expressed over and over again that she is a no code/DO NOT INTUBATE. Time with Patient: Less than 30
[2017-05-21] MEDS: HYDROcodone/APAP 7.5-325MG 1 EACH TAB PO PRN (11:57)
[2017-05-21 11:59] LABS: Glucose,Whole Blood 162 mg/dL (75-99)
[2017-05-21] MEDS: PIPERACILLIN-TAZOBACTAM 3.375 GM in DEXTROSE/WATER 1 50ML.BAG IVPB SCH ×2 (12:01→21:17)
--- NOTE | 2017-05-21 16:12 | PN ---
PROGRESS NOTE DATE OF SERVICE: 05/21/2017 This 67-year-old woman who was admitted with COPD exacerbation, acute vent treatment, still on BiPAP. Patient is almost BiPAP dependent. Patient also had chest pain and type 2 myocardial infarction also. The shoulder x-rays and rib x-rays are showing no acute abnormality. The bone pain is improving also. No chest pain. No palpitations. No fever. Extremely short of breath even at rest. Unable to complete a full sentence. EXAM: Pulse 95, blood pressure 120/78, respiration 24, temperature 97.8, pulse ox 98% on 35% FIO2. HEENT: Conjunctivae normal. Oral mucosa moist. NECK: No jugular venous distention. No carotid bruit. No lymph node enlargement. CARDIOVASCULAR: S1, S2. No S3, no S4. RESPIRATORY: Breath sounds diminished in the bases. Bilateral scattered rhonchi and crackles. ABDOMEN: Soft, nontender. No mass. LEGS: No edema. NERVOUS SYSTEM: Diffusely weak. LAB: WBC 8.2, hemoglobin 11.3 and glucose 133. Troponin 0.097. ASSESSMENT: 1. Chronic obstructive pulmonary disease acute exacerbation with acute purulent tracheobronchitis with acute on chronic hypoxic respiratory failure. 2. Chest pain with troponin 0.737, possible acute non ST elevation myocardial infarction type 2. 3. Hyponatremia. 4. Left shoulder pain. 5. Increased WBC. 6. History of asthma, chronic obstructive pulmonary disease. 7. Gastroesophageal reflux disease. 8. Hypertension essential. 9. Hyperlipidemia. 10.History of myocardial infarction. 11.History pneumonia. 12.History of sleep apnea. 13.Advanced endstage chronic obstructive pulmonary disease. 14.Chronic hypoxic respiratory failure on home O2 5 L. 15.History of bilateral glaucoma. RECOMMENDATIONS AND DISCUSSION: I recommend to continue current medications and symptomatic treatment. Otherwise at this time I recommend continue with bronchodilators. Continue steroids. Closely follow with Dr. Carrero. Prognosis guarded because of multiple complex medical issues. Continue with BiPAP on a p.r.n. basis. Further recommendations to follow. MMODL / IJN: [id number] /
[2017-05-21 16:58] LABS: Glucose,Whole Blood 136 mg/dL (75-99)
[2017-05-21 21:06] LABS: Glucose,Whole Blood 175 mg/dL (75-99)
[2017-05-21] MEDS: LORazepam 1 MG TAB PO SCH (21:18)
[2017-05-22] MEDS: PIPERACILLIN-TAZOBACTAM 3.375 GM in DEXTROSE/WATER 1 50ML.BAG IVPB SCH ×3 (03:00→20:40)
[2017-05-22 06:25] LABS: Glucose,Whole Blood 117 mg/dL (75-99)
[2017-05-22 06:31] LABS: Basophils % (A) 0 %; Eosinophils % (A) 0 %; HCT 33.8 % (34.0-46.0); HGB 10.3 gm/dL (11.4-16.0); Hypochromasia Slight; Lymphocytes # (A) 0.4 k/uL (1.0-4.8); Lymphocytes % (A) 8 %; MCH 29.3 pg (25.0-35.0); MCHC 30.4 g/dL (31.0-37.0); MCV 96.4 fL (80.0-100.0); Monocytes # (A) 0.2 k/uL (0-1.0); Monocytes % (A) 4 %; Neutrophils # (A) 4.2 k/uL (1.3-7.7); Neutrophils % (A) 85 %; Platelet Count 200 k/uL (150-450); RBC 3.51 m/uL (3.80-5.40); RDW 14.3 % (11.5-15.5)
[2017-05-22] MEDS: INSULIN ASPART 100 UNIT/ML 1 ML 10 ML VIAL SQ SCH ×4 (06:32→20:41)
[2017-05-22] MEDS: methylPREDNISolone SOD SUCCI 125 MG/2 ML VIAL IV SCH ×4 (06:33→23:17)
[2017-05-22] MEDS: PANTOPRAZOLE 40 MG TABLET PO SCH ×2 (06:34→18:27)
[2017-05-22 07:05] LABS: Anion Gap 3 mmol/L; Blood Urea Nitrogen 25 mg/dL (7-17); Calcium 8.4 mg/dL (8.4-10.2); Carbon Dioxide 32 mmol/L (22-30); Chloride 102 mmol/L (98-107); Glucose 111 mg/dL (74-99); Potassium 4.6 mmol/L (3.5-5.1); Sodium 137 mmol/L (137-145)
[2017-05-22] MEDS: FORMOTEROL FUMARATE 20 MCG/2 ML NEBU INHALATION SCH ×2 (07:20→19:40)
[2017-05-22] MEDS: IPRATROPIUM-ALBUTEROL 3 ML NEB INHALATION SCH ×4 (07:20→19:20)
[2017-05-22] MEDS: BUDESONIDE 1 MG/2 ML NEBU INHALATION SCH ×3 (07:20→19:59)
[2017-05-22] MEDS: ASPIRIN 81 MG PO SCH (07:46)
[2017-05-22] MEDS: ISOSORBIDE MONONITRATE ER 15 MG TAB PO SCH (07:46)
[2017-05-22] MEDS: METOPROLOL TARTRATE 12.5 MG TAB PO SCH ×2 (07:46→20:40)
[2017-05-22] MEDS: LORazepam 2 MG/ML INJ IV PRN (07:58)
[2017-05-22 11:29] LABS: Glucose,Whole Blood 123 mg/dL (75-99)
[2017-05-22] MEDS: HYDROcodone/APAP 7.5-325MG 1 EACH TAB PO PRN (12:26)
[2017-05-22] MEDS: amLODIPine 2.5 MG TAB PO SCH (12:27)
--- NOTE | 2017-05-22 13:16 | P.PN ---
Subjective Progress Note Date: 05/22/17 Principal diagnosis: COPD exacerbation/respiratory failure Progress note dated 05/21/2017 This is a 67-year-old female with a history of acute on chronic hypoxemic and hypercapnic respiratory failure. She has severe end-stage COPD which is both oxygen and steroid dependent. Over the last year or so, she said anywhere between 13-15 admissions to the hospital for similar episodes of COPD exacerbation. This is what brought her in again this time. She's been on BiPAP for 2 days without much improvement. She is very short of breath. She also complains of shoulder and rib pain but x-rays are negative. She has history of chronic and ongoing tobacco dependence non-ST segment elevation myocardial infarction hypertension hyperlipidemia osteoarthritis pneumonia sleep apnea syndrome skin cancer and gastroesophageal reflux disease. Again the patient has not made much progress over the last couple of days. She remains on BiPAP. Cardiology is not interested in doing anything acutely with her given the severity of her COPD. That's understandable. Progress note dated 03/21/2018 67-year-old female with a history of end-stage COPD. She comes into the hospital with hypoxemic and hypercapnic respiratory failure. She's basically been on BiPAP for 3-1/2-4 days. Only very slowly improving. She understands that she may not get better and MrXimena come to this COPD exacerbation. She's had about 15 admissions in the last year or so for COPD exacerbation. Up until recently, she continues to smoke. In addition to severe oxygen and steroid dependent COPD, she has a history of chronic and ongoing tobacco dependence, non -ST segment elevation myocardial infarction, hypertension, hyperlipidemia, osteoarthritis, pneumonia, sleep apnea syndrome, skin cancer and gastroesophageal reflux disease. Today when I add back the patient's amlodipine. Her other blood pressure medications have been given to her already. She is only minimally improved today. Objective - Vital Signs Vital signs: Vital Signs Temp 96.7 F L 05/22/17 08:00 Pulse 76 05/22/17 12:00 Resp 20 05/22/17 12:00 BP 156/80 05/22/17 12:00 Pulse Ox 99 05/22/17 12:00 Intake & Output 05/21/17 05/22/17 05/22/17 18:59 06:59 18:59 Intake Total 250 50 0 Output Total 200 Balance 250 -150 0 Weight 43 kg 43 kg Intake: Intake, IV Titration 50 50 Amount Piperacillin-Tazobactam 3 50 50 .375 gm In Dextrose/Water 1 50ml.bag @ 12.5 mls/hr IVPB Q8H [facility] Rx#: [id number] Oral 200 0 Output: Urine 200 Other: Voiding Method Bedside Commode Bedside Commode Bedpan Bedpan # Voids 1 1 - Exam Oriented 3, but the patient's in significant respiratory distress despite the BiPAP. BiPAP mask in place. HEENT examination is grossly unremarkable. . Neck supple. Full range of motion. No adenopathy thyromegaly or neck vein distention. Cardiovascular examination reveals regular rhythm rate. S1-S2 normal. No S3 or S4. No discernible murmur noted. The patient is mildly tachycardic. Lungs reveals severely diminished breath sounds throughout. A few scattered rhonchi. Some high-pitched expiratory wheezes are noted. Breath sounds are equal bilaterally but severely diminished throughout. Abdomen soft bowel sounds are heard. No masses or tenderness. Extremities are intact. No cyanosis clubbing or edema. Skin is without rash or lesion. Neurologic examination is difficult to assess. - Labs CBC & Chem 7: 05/22/17 05:43 05/22/17 05:43 Labs: Abnormal Lab Results - Last 24 Hours (Table) 05/21/17 05/21/17 05/22/17 Range/Units 16:50 20:47 05:43 RBC (3.80-5.40) m/uL Hgb (11.4-16.0) gm/dL Hct (34.0-46.0) % MCHC (31.0-37.0) g/dL Lymphocytes # (1.0-4.8) k/uL Carbon Dioxide (22-30) mmol/L BUN (7-17) mg/dL Glucose (74-99) mg/dL POC Glucose (mg/dL) 136 H 175 H (75-99) mg/dL Troponin I 0.051 H* (0.000-0.034) ng/mL 05/22/17 05/22/17 05/22/17 Range/Units 05:43 05:43 06:23 RBC 3.51 L (3.80-5.40) m/uL Hgb 10.3 L (11.4-16.0) gm/dL Hct 33.8 L (34.0-46.0) % MCHC 30.4 L (31.0-37.0) g/dL Lymphocytes # 0.4 L (1.0-4.8) k/uL Carbon Dioxide 32 H (22-30) mmol/L BUN 25 H (7-17) mg/dL Glucose 111 H (74-99) mg/dL POC Glucose (mg/dL) 117 H (75-99) mg/dL Troponin I (0.000-0.034) ng/mL 05/22/17 Range/Units 11:27 RBC (3.80-5.40) m/uL Hgb (11.4-16.0) gm/dL Hct (34.0-46.0) % MCHC (31.0-37.0) g/dL Lymphocytes # (1.0-4.8) k/uL Carbon Dioxide (22-30) mmol/L BUN (7-17) mg/dL Glucose (74-99) mg/dL POC Glucose (mg/dL) 123 H (75-99) mg/dL Troponin I (0.000-0.034) ng/mL Assessment and Plan Assessment: Assessment Hypoxemic respiratory failure secondary to COPD exacerbation History of severe end-stage oxygen and steroid dependent COPD with multiple hospital admissions. Gastroesophageal reflux disease Hyperlipidemia Myocardial infarction Hypertension Osteoarthritis History of pneumonia History of sleep apnea syndrome. History of skin cancer Plan: Plan dated 05/19/2017 The patient is on all the usual medications. I review the labs x-rays and medications. Chest x-ray does not reveal any acute abnormalities. The patient will get DuoNeb 4 times a day and when necessary. We'll also provide her with Pulmicort 1 mg twice a day mixed with performist. We'll make sure that she gets systemic corticosteroids and some oral antibiotics. Prognosis is very poor. Plan dated 05/21/2017 The patient is on all her usual medications including short acting beta agonist , short acting muscarinic antagonist, long-acting beta agonist, and inhaled corticosteroids. She also remains on systemic corticosteroids and is on the BiPAP device pretty much 24/7. He's also on oral antibiotics. Prognosis is poor. The patient's x-rays of ribs and shoulder are negative. I did have a conversation with her and told her that she may not make it through this episode. She's had at least 13-15 admissions in the last year for COPD exacerbations. She has expressed over and over again that she is a no code/DO NOT INTUBATE. Time with Patient: Less than 30
[2017-05-22 17:06] LABS: Glucose,Whole Blood 231 mg/dL (75-99)
--- NOTE | 2017-05-22 19:08 | P.PN ---
Subjective Progress Note Date: 05/22/17 Progress note being dictated for Dr. Lujan. This is a 67-year-old female admitted with acute on chronic hypoxic and hypercapnic respiratory failure in a patient with end-stage COPD, ongoing nicotine dependence and multiple other medical issues. Maintained on BiPAP with slow improvement. Hypertensive, home med Norvasc resumed. Denies chest pain, palpitations. Objective - Vital Signs Vital signs: Vital Signs Temp 96.7 F L 05/22/17 08:00 Pulse 84 05/22/17 15:23 Resp 20 05/22/17 12:00 BP 156/80 05/22/17 12:00 Pulse Ox 99 05/22/17 12:00 Intake & Output 05/21/17 05/22/17 05/22/17 18:59 06:59 18:59 Intake Total 250 50 0 Output Total 200 500 Balance 250 -150 -500 Weight 43 kg 43 kg Intake: Intake, IV Titration 50 50 Amount Piperacillin-Tazobactam 3 50 50 .375 gm In Dextrose/Water 1 50ml.bag @ 12.5 mls/hr IVPB Q8H [facility] Rx#: [id number] Oral 200 0 Output: Urine 200 500 Other: Voiding Method Bedside Commode Bedside Commode Bedpan Bedpan # Voids 1 1 - Exam PHYSICAL EXAM: VITAL SIGNS: As above GENERAL: Sitting up in bed, wearing BiPAP, respiratory effort increased HEENT: Conjunctivae normal. eyes normal. NECK: No JVD. No thyroid enlargement. No LNs CARDIOVASCULAR: S1, S2 muffled. No murmur RESPIRATION: Breath sounds diminished in the bases. Scattered rhonchi AND crackles. Occasional expiratory wheezing noted ABDOMEN: Soft, nontender . No guarding. no masses palpable. Bowel sounds heard. LEGS: No edema. no swelling PSYCHIATRY: Alert and oriented -3, mood and affect normal. NERVOUS SYSTEM: Cranial N 2-12 grossly normal. Moves all 4 limbs. Diffuse weakness No focal deficits. No sensory deficit. Skin: no ulcer no rash Joints: No active swelling. No inflammation. Lymphatic system. No LN neck axilla or groin. - Labs CBC & Chem 7: 05/22/17 05:43 05/22/17 05:43 Labs: Abnormal Lab Results - Last 24 Hours (Table) 05/21/17 05/22/17 05/22/17 Range/Units 20:47 05:43 05:43 RBC 3.51 L (3.80-5.40) m/uL Hgb 10.3 L (11.4-16.0) gm/dL Hct 33.8 L (34.0-46.0) % MCHC 30.4 L (31.0-37.0) g/dL Lymphocytes # 0.4 L (1.0-4.8) k/uL Carbon Dioxide (22-30) mmol/L BUN (7-17) mg/dL Glucose (74-99) mg/dL POC Glucose (mg/dL) 175 H (75-99) mg/dL Troponin I 0.051 H* (0.000-0.034) ng/mL 05/22/17 05/22/17 05/22/17 Range/Units 05:43 06:23 11:27 RBC (3.80-5.40) m/uL Hgb (11.4-16.0) gm/dL Hct (34.0-46.0) % MCHC (31.0-37.0) g/dL Lymphocytes # (1.0-4.8) k/uL Carbon Dioxide 32 H (22-30) mmol/L BUN 25 H (7-17) mg/dL Glucose 111 H (74-99) mg/dL POC Glucose (mg/dL) 117 H 123 H (75-99) mg/dL Troponin I (0.000-0.034) ng/mL 05/22/17 Range/Units 16:58 RBC (3.80-5.40) m/uL Hgb (11.4-16.0) gm/dL Hct (34.0-46.0) % MCHC (31.0-37.0) g/dL Lymphocytes # (1.0-4.8) k/uL Carbon Dioxide (22-30) mmol/L BUN (7-17) mg/dL Glucose (74-99) mg/dL POC Glucose (mg/dL) 231 H (75-99) mg/dL Troponin I (0.000-0.034) ng/mL Assessment and Plan Assessment: 1. Acute exacerbation COPD with acute purulent tracheobronchitis, acute on chronic hypoxic, hypercapnic respiratory failure 2. Chest pain with troponin 0.77, possible acute non-STEMI,TYPE II 3. Hyponatremia 4. Ongoing nicotine dependence 5. Advanced end-stage COPD 6. Chronic hypoxic respiratory failure on home O2, 5 L Plan: Continue on current medication regime ,monitoring and symptomatic treatment. Maintain nebulized bronchodilators, steroids, prn BiPAP. Follow closely with pulmonary. Prognosis guarded given multiple complex medical issues. The impression and plan of care has been dictated as directed. : I performed a history and examination of this patient, discussed the same with the dictator. I agree with the dictator's note ,documented as a scribe. Any additional findings or plans will be noted.
[2017-05-22] MEDS: LORazepam 1 MG TAB PO SCH (20:40)
[2017-05-22 20:45] LABS: Glucose,Whole Blood 105 mg/dL (75-99)
[2017-05-23] MEDS: PIPERACILLIN-TAZOBACTAM 3.375 GM in DEXTROSE/WATER 1 50ML.BAG IVPB SCH ×3 (03:46→21:27)
[2017-05-23] MEDS: methylPREDNISolone SOD SUCCI 125 MG/2 ML VIAL IV SCH ×3 (04:58→17:20)
[2017-05-23 06:09] LABS: Glucose,Whole Blood 153 mg/dL (75-99)
[2017-05-23] MEDS: PANTOPRAZOLE 40 MG TABLET PO SCH ×2 (06:15→17:20)
[2017-05-23] MEDS: amLODIPine 2.5 MG TAB PO SCH (06:15)
[2017-05-23] MEDS: INSULIN ASPART 100 UNIT/ML 1 ML 10 ML VIAL SQ SCH ×4 (06:15→21:36)
[2017-05-23 07:00] LABS: Basophils % (A) 0 %; Eosinophils % (A) 0 %; HGB 11.6 gm/dL (11.4-16.0); Lymphocytes # (A) 0.5 k/uL (1.0-4.8); Lymphocytes % (A) 8 %; MCH 29.7 pg (25.0-35.0); MCHC 31.4 g/dL (31.0-37.0); MCV 94.5 fL (80.0-100.0); Mean Platelet Volume 6.9; Monocytes # (A) 0.2 k/uL (0-1.0); Monocytes % (A) 2 %; Neutrophils # (A) 5.9 k/uL (1.3-7.7); Neutrophils % (A) 89 %; Platelet Count 229 k/uL (150-450); RBC 3.92 m/uL (3.80-5.40); RDW 14.2 % (11.5-15.5); WBC 6.7 k/uL (3.8-10.6)
[2017-05-23] MEDS: IPRATROPIUM-ALBUTEROL 3 ML NEB INHALATION SCH ×4 (07:12→19:47)
[2017-05-23] MEDS: FORMOTEROL FUMARATE 20 MCG/2 ML NEBU INHALATION SCH ×2 (07:12→19:47)
[2017-05-23 07:26] LABS: Anion Gap 7 mmol/L; Blood Urea Nitrogen 19 mg/dL (7-17); Carbon Dioxide 35 mmol/L (22-30); Chloride 92 mmol/L (98-107); Glucose 137 mg/dL (74-99); Potassium 3.9 mmol/L (3.5-5.1); Sodium 134 mmol/L (137-145)
[2017-05-23] MEDS: ASPIRIN 81 MG PO SCH (08:26)
[2017-05-23] MEDS: ISOSORBIDE MONONITRATE ER 15 MG TAB PO SCH (08:27)
[2017-05-23] MEDS: METOPROLOL TARTRATE 12.5 MG TAB PO SCH ×2 (08:27→21:36)
--- NOTE | 2017-05-23 10:43 | P.PN ---
Subjective Progress Note Date: 05/23/17 Principal diagnosis: Acute exacerbation of severe end-stage chronic obstructive pulmonary disease. This is a very pleasant 67-year-old female well-known to our service. She has a history of severe COPD. Heavy smoker. She has end-stage disease. She is both oxygen and steroid dependent. She presented to the emergency room on 05/19 in the morning with complaints of increasing shortness of breath. She had severe conversational dyspnea. Her shortness of breath or been going on for about a week and getting much worse. In addition she has a bit of pain in the chest mostly on deep breathing and a nonproductive cough. No fever no chills. No nausea vomiting or diarrhea. She is currently resting comfortably in bed. She remains on the BiPAP at settings of 12/6 and 35% FiO2. She is maintaining good O2 saturations in the upper 90s. She comes off the BiPAP briefly for meals however her appetite is quite poor. She is very frail and cachectic. She is dyspneic with conversation a minimal exertion. She is slow to progress. She is afebrile. No leukocytosis. Bicarb 35. Objective - Vital Signs Vital signs: Vital Signs Temp 96.7 F L 05/23/17 07:29 Pulse 78 05/23/17 08:00 Resp 16 05/23/17 08:00 BP 181/97 05/23/17 07:29 Pulse Ox 99 05/23/17 07:29 Intake & Output 05/22/17 05/23/17 05/23/17 18:59 06:59 18:59 Intake Total 0 100 Output Total 500 2600 Balance -500 100 -2600 Weight 43 kg Intake: Intake, IV Titration 100 Amount Piperacillin-Tazobactam 3 100 .375 gm In Dextrose/Water 1 50ml.bag @ 12.5 mls/hr IVPB Q8H [facility] Rx#: [id number] Oral 0 Output: Urine 500 2600 Other: Voiding Method Bedside Commode Bedside Commode Bedpan Bedpan # Voids 2 - Exam GENERAL EXAM: Very frail, cachectic. Appears older than her stated age. Alert , comfortable in no apparent distress. HEAD: Normocephalic. EYES: Normal reaction of pupils, equal size. NOSE: Clear with pink turbinates. THROAT: No erythema or exudates. NECK: No masses, no JVD. CHEST: No chest wall deformity. LUNGS: Equal air entry with bilateral end expiratory wheeze. Diminished throughout. CVS: S1 and S2 normal with no audible murmur, regular rhythm. ABDOMEN: No hepatosplenomegaly, normal bowel sounds, no guarding or rigidity. SPINE: Kyphoscoliosis SKIN: No rashes CENTRAL NERVOUS SYSTEM: No focal deficits, tone is normal in all 4 extremities. EXTREMITIES: There is no peripheral edema. No clubbing, no cyanosis. Peripheral pulses are intact. - Labs CBC & Chem 7: 05/23/17 06:28 05/23/17 06:28 Labs: Abnormal Lab Results - Last 24 Hours (Table) 05/22/17 05/22/17 05/22/17 Range/Units 11:27 16:58 20:40 Lymphocytes # (1.0-4.8) k/uL Sodium (137-145) mmol/L Chloride (98-107) mmol/L Carbon Dioxide (22-30) mmol/L BUN (7-17) mg/dL Glucose (74-99) mg/dL POC Glucose (mg/dL) 123 H 231 H 105 H (75-99) mg/dL Troponin I (0.000-0.034) ng/mL 05/23/17 05/23/17 05/23/17 Range/Units 06:08 06:28 06:28 Lymphocytes # 0.5 L (1.0-4.8) k/uL Sodium (137-145) mmol/L Chloride (98-107) mmol/L Carbon Dioxide (22-30) mmol/L BUN (7-17) mg/dL Glucose (74-99) mg/dL POC Glucose (mg/dL) 153 H (75-99) mg/dL Troponin I 0.038 H* (0.000-0.034) ng/mL 05/23/17 Range/Units 06:28 Lymphocytes # (1.0-4.8) k/uL Sodium 134 L (137-145) mmol/L Chloride 92 L (98-107) mmol/L Carbon Dioxide 35 H (22-30) mmol/L BUN 19 H (7-17) mg/dL Glucose 137 H (74-99) mg/dL POC Glucose (mg/dL) (75-99) mg/dL Troponin I (0.000-0.034) ng/mL Assessment and Plan Assessment: Assessment Acute on chronic hypoxemic respiratory failure secondary to COPD exacerbation History of severe end-stage oxygen and steroid dependent COPD with multiple hospital admissions. Chronic and ongoing tobacco dependence. Non-ST segment elevation myocardial infarction. Hypertension Hyperlipidemia Osteoarthritis History of pneumonia History of sleep apnea syndrome. History of skin cancer Gastroesophageal reflux disease Poor overall functional performance based on the above-mentioned comorbidities Plan The patient was seen and evaluated by Dr. Carrero. We'll continue with her current regimen of DuoNeb inhalations 4 times a day and when necessary, Pulmicort and Perforomist inhalations twice a day, IV Solu-Medrol 60 mg every 6 hours. She is on empiric antibiotics in the form of Zosyn. Cardiology is on the case regarding the non-ST segment elevation myocardial infarction. No plans for any intervention in the outpatient setting based on her acute respiratory distress. Overall prognosis remains quite poor. She is again educated regarding the importance of complete smoking cessation. She is a DO NOT RESUSCITATE/DO NOT INTUBATE CODE STATUS. We'll continue to follow and make further recommendations based on her clinical status. I, the cosigning physician, performed a history & physical examination of the patient. Lungs sounds have bilateral end expiratory wheeze. Diminished throughout.. Maintaining good O2 saturations in the 90s on 35% FiO2 and a BiPAP of 12/6. I discussed the assessment and plan of care with my nurse practitioner, Modesta Colon. I attest to the above note as dictated by her.
[2017-05-23 11:31] LABS: Glucose,Whole Blood 131 mg/dL (75-99)
--- NOTE | 2017-05-23 16:35 | P.PN ---
Subjective Progress Note Date: 05/23/17 Progress note being dictated for Dr. Olvera This is a 67-year-old female admitted with acute on chronic hypoxic and hypercapnic respiratory failure in a patient with end-stage COPD, ongoing nicotine dependence and multiple other medical issues. Maintained on BiPAP with slow improvement. Hypertensive, home med Norvasc resumed. Denies chest pain, palpitations. 05/23/2017. Remains 35% Fio2 BiPAP dependent. Bicarb 35, maintaining O2 sats in the high 90s. Expresses she is hungry; minimal intake as she is only able to tolerate a few minutes on high flow nasal cannula. Dyspneic with minimal exertion. Chest pain, palpitations. Afebrile. Objective - Vital Signs Vital signs: Vital Signs Temp 97.3 F L 05/23/17 16:00 Pulse 64 05/23/17 16:00 Resp 18 05/23/17 16:00 BP 166/83 05/23/17 16:00 Pulse Ox 98 05/23/17 16:00 Intake & Output 05/22/17 05/23/17 05/23/17 18:59 06:59 18:59 Intake Total 0 100 Output Total 500 2966 Balance -500 100 -2966 Weight 43 kg Intake: Intake, IV Titration 100 Amount Piperacillin-Tazobactam 3 100 .375 gm In Dextrose/Water 1 50ml.bag @ 12.5 mls/hr IVPB Q8H [facility] Rx#: [id number] Oral 0 Output: Urine 500 2950 Post Void Residual 16 Other: Voiding Method Bedside Commode Bedside Commode Bedpan Bedpan # Voids 2 - Exam PHYSICAL EXAM: VITAL SIGNS: As above GENERAL: Sitting up in bed, cachectic, tired appearing, wearing BiPAP, respiratory effort increased HEENT: Conjunctivae normal. eyes normal. NECK: No JVD. No thyroid enlargement. No LNs CARDIOVASCULAR: S1, S2 muffled. No murmur RESPIRATION: Breath sounds diminished in the bases. Scattered rhonchi AND crackles. Occasional expiratory wheezing noted ABDOMEN: Soft, nontender . No guarding. no masses palpable. Bowel sounds heard. LEGS: No edema. no swelling PSYCHIATRY: Alert and oriented -3, mood and affect normal. NERVOUS SYSTEM: Cranial N 2-12 grossly normal. Moves all 4 limbs. Diffuse weakness No focal deficits. No sensory deficit. Skin: no ulcer no rash Joints: No active swelling. No inflammation. Lymphatic system. No LN neck axilla or groin. - Labs CBC & Chem 7: 05/23/17 06:28 05/23/17 06:28 Labs: Abnormal Lab Results - Last 24 Hours (Table) 05/22/17 05/22/17 05/23/17 Range/Units 16:58 20:40 06:08 Lymphocytes # (1.0-4.8) k/uL Sodium (137-145) mmol/L Chloride (98-107) mmol/L Carbon Dioxide (22-30) mmol/L BUN (7-17) mg/dL Glucose (74-99) mg/dL POC Glucose (mg/dL) 231 H 105 H 153 H (75-99) mg/dL Troponin I (0.000-0.034) ng/mL 05/23/17 05/23/17 05/23/17 Range/Units 06:28 06:28 06:28 Lymphocytes # 0.5 L (1.0-4.8) k/uL Sodium 134 L (137-145) mmol/L Chloride 92 L (98-107) mmol/L Carbon Dioxide 35 H (22-30) mmol/L BUN 19 H (7-17) mg/dL Glucose 137 H (74-99) mg/dL POC Glucose (mg/dL) (75-99) mg/dL Troponin I 0.038 H* (0.000-0.034) ng/mL 05/23/17 Range/Units 11:29 Lymphocytes # (1.0-4.8) k/uL Sodium (137-145) mmol/L Chloride (98-107) mmol/L Carbon Dioxide (22-30) mmol/L BUN (7-17) mg/dL Glucose (74-99) mg/dL POC Glucose (mg/dL) 131 H (75-99) mg/dL Troponin I (0.000-0.034) ng/mL Assessment and Plan Assessment: 1. Acute exacerbation COPD with acute purulent tracheobronchitis, acute on chronic hypoxic, hypercapnic respiratory failure 2. Chest pain with troponin 0.77, possible acute non-STEMI,TYPE II, not a candidate for aggressive cardiac workup given respiratory status 3. Hyponatremia 4. Ongoing nicotine dependence 5. Advanced end-stage COPD 6. Chronic hypoxic respiratory failure on home O2, 5 L Plan: Continue on current medication regime ,monitoring and symptomatic treatment. Continue on antibiotics-Zosyn ,nebulized bronchodilators, steroids, prn BiPAP. Follow closely with pulmonary and cardiology. Smoking cessation readdressed. Prognosis guarded given multiple complex medical issues. The impression and plan of care has been dictated as directed. : I performed a history and examination of this patient, discussed the same with the dictator. I agree with the dictator's note ,documented as a scribe. Any additional findings or plans will be noted.
[2017-05-23 16:39] LABS: Glucose,Whole Blood 146 mg/dL (75-99)
[2017-05-23] MEDS: BUDESONIDE 1 MG/2 ML NEBU INHALATION SCH (19:47)
[2017-05-23 20:46] LABS: Glucose,Whole Blood 223 mg/dL (75-99)
[2017-05-23] MEDS: LORazepam 1 MG TAB PO SCH (21:36)
[2017-05-24] MEDS: methylPREDNISolone SOD SUCCI 125 MG/2 ML VIAL IV SCH ×5 (00:54→23:41)
[2017-05-24] MEDS: IPRATROPIUM-ALBUTEROL 3 ML NEB INHALATION PRN (04:32)
[2017-05-24 06:07] LABS: Glucose,Whole Blood 141 mg/dL (75-99)
[2017-05-24 06:07] LABS: Basophils % (A) 0 %; Eosinophils % (A) 0 %; HCT 37.6 % (34.0-46.0); HGB 11.9 gm/dL (11.4-16.0); Lymphocytes # (A) 0.5 k/uL (1.0-4.8); Lymphocytes % (A) 6 %; MCH 29.5 pg (25.0-35.0); MCHC 31.7 g/dL (31.0-37.0); Mean Platelet Volume 6.9; Monocytes # (A) 0.2 k/uL (0-1.0); Monocytes % (A) 3 %; Neutrophils # (A) 6.6 k/uL (1.3-7.7); Neutrophils % (A) 89 %; Platelet Count 242 k/uL (150-450); RBC 4.05 m/uL (3.80-5.40); RDW 13.9 % (11.5-15.5); WBC 7.4 k/uL (3.8-10.6)
[2017-05-24] MEDS: PIPERACILLIN-TAZOBACTAM 3.375 GM in DEXTROSE/WATER 1 50ML.BAG IVPB SCH ×3 (06:11→19:34)
[2017-05-24] MEDS: PANTOPRAZOLE 40 MG TABLET PO SCH ×2 (06:16→17:24)
[2017-05-24 06:25] LABS: Anion Gap 8 mmol/L; Blood Urea Nitrogen 19 mg/dL (7-17); Calcium 8.8 mg/dL (8.4-10.2); Carbon Dioxide 37 mmol/L (22-30); Chloride 89 mmol/L (98-107); Glucose 140 mg/dL (74-99); Potassium 3.4 mmol/L (3.5-5.1); Sodium 134 mmol/L (137-145)
[2017-05-24] MEDS: INSULIN ASPART 100 UNIT/ML 1 ML 10 ML VIAL SQ SCH ×4 (06:53→21:57)
[2017-05-24] MEDS: BUDESONIDE 1 MG/2 ML NEBU INHALATION SCH ×2 (07:10→21:44)
[2017-05-24] MEDS: FORMOTEROL FUMARATE 20 MCG/2 ML NEBU INHALATION SCH ×2 (07:10→21:44)
[2017-05-24] MEDS: IPRATROPIUM-ALBUTEROL 3 ML NEB INHALATION SCH ×4 (07:10→21:44)
[2017-05-24] MEDS: ASPIRIN 81 MG PO SCH (09:02)
[2017-05-24] MEDS: ISOSORBIDE MONONITRATE ER 15 MG TAB PO SCH (09:02)
[2017-05-24] MEDS: amLODIPine 2.5 MG TAB PO SCH (09:02)
[2017-05-24] MEDS: METOPROLOL TARTRATE 12.5 MG TAB PO SCH ×2 (09:03→21:57)
[2017-05-24] MEDS: HYDROcodone/APAP 7.5-325MG 1 EACH TAB PO PRN (09:04)
--- NOTE | 2017-05-24 11:30 | P.PN ---
Subjective Progress Note Date: 05/24/17 Principal diagnosis: Acute exacerbation of severe end-stage chronic obstructive pulmonary disease. This is a very pleasant 67-year-old female well-known to our service. She has a history of severe COPD. Heavy smoker. She has end-stage disease. She is both oxygen and steroid dependent. She presented to the emergency room on 05/19 in the morning with complaints of increasing shortness of breath. She had severe conversational dyspnea. Her shortness of breath or been going on for about a week and getting much worse. In addition she has a bit of pain in the chest mostly on deep breathing and a nonproductive cough. No fever no chills. No nausea vomiting or diarrhea. She is currently resting comfortably in bed. She remains on the BiPAP at settings of 12/6 and 35% FiO2. She is maintaining good O2 saturations in the upper 90s. She comes off the BiPAP briefly for meals however her appetite is quite poor. She is very frail and cachectic. She is dyspneic with conversation a minimal exertion. She is slow to progress. She is afebrile. No leukocytosis. Bicarb 35. The patient is seen again today 05/24/2017 in follow-up on the selective care unit. She is more awake and alert today as compared to yesterday. She is still however quite BiPAP dependent. Still 12/6 at 35% FiO2 and maintaining good O2 saturations in the upper 90s. She has been afebrile. Hemodynamically stable. No leukocytosis. Hemoglobin stable. Creatinine 1.50. Bicarb 37. She was off for approximately 15 minutes this morning for breakfast. Her appetite is slightly better but still minimal intake. Objective - Vital Signs Vital signs: Vital Signs Temp 96.8 F L 05/24/17 11:05 Pulse 70 05/24/17 11:05 Resp 20 05/24/17 11:05 BP 137/76 05/24/17 11:05 Pulse Ox 99 05/24/17 11:05 Intake & Output 05/23/17 05/24/17 05/24/17 18:59 06:59 18:59 Intake Total 360 100 Output Total 2966 2244 Balance -8764 -7118 Weight 39.3 kg Intake: Intake, IV Titration 50 Amount Piperacillin-Tazobactam 3 50 .375 gm In Dextrose/Water 1 50ml.bag @ 12.5 mls/hr IVPB Q8H [facility] Rx#: [id number] Oral 360 50 Output: Urine 2950 4003 Post Void Residual 16 Other: Voiding Method Bedside Commode Bedside Commode Bedside Commode Bedpan Bedpan Bedpan # Voids 2 1 - Exam GENERAL EXAM: Very frail, cachectic. Appears older than her stated age. Alert , comfortable in no apparent distress. HEAD: Normocephalic. EYES: Normal reaction of pupils, equal size. NOSE: Clear with pink turbinates. THROAT: No erythema or exudates. NECK: No masses, no JVD. CHEST: No chest wall deformity. LUNGS: Equal air entry with bilateral end expiratory wheeze. Diminished throughout. CVS: S1 and S2 normal with no audible murmur, regular rhythm. ABDOMEN: No hepatosplenomegaly, normal bowel sounds, no guarding or rigidity. SPINE: Kyphoscoliosis SKIN: No rashes CENTRAL NERVOUS SYSTEM: No focal deficits, tone is normal in all 4 extremities. EXTREMITIES: There is no peripheral edema. No clubbing, no cyanosis. Peripheral pulses are intact. - Labs CBC & Chem 7: 05/24/17 05:41 05/24/17 05:41 Labs: Abnormal Lab Results - Last 24 Hours (Table) 05/23/17 05/23/17 05/23/17 Range/Units 11:29 16:37 20:43 Lymphocytes # (1.0-4.8) k/uL Sodium (137-145) mmol/L Potassium (3.5-5.1) mmol/L Chloride (98-107) mmol/L Carbon Dioxide (22-30) mmol/L BUN (7-17) mg/dL Creatinine (0.52-1.04) mg/dL Glucose (74-99) mg/dL POC Glucose (mg/dL) 131 H 146 H 223 H (75-99) mg/dL 05/24/17 05/24/17 05/24/17 Range/Units 05:41 05:41 06:06 Lymphocytes # 0.5 L (1.0-4.8) k/uL Sodium 134 L (137-145) mmol/L Potassium 3.4 L (3.5-5.1) mmol/L Chloride 89 L (98-107) mmol/L Carbon Dioxide 37 H (22-30) mmol/L BUN 19 H (7-17) mg/dL Creatinine 0.50 L (0.52-1.04) mg/dL Glucose 140 H (74-99) mg/dL POC Glucose (mg/dL) 141 H (75-99) mg/dL Assessment and Plan Assessment: Assessment Acute on chronic hypoxemic respiratory failure secondary to COPD exacerbation History of severe end-stage oxygen and steroid dependent COPD with multiple hospital admissions. Chronic and ongoing tobacco dependence. Non-ST segment elevation myocardial infarction. Hypertension Hyperlipidemia Osteoarthritis History of pneumonia History of sleep apnea syndrome. History of skin cancer Gastroesophageal reflux disease Poor overall functional performance based on the above-mentioned comorbidities Plan The patient was seen and evaluated by Dr. Carrero. We'll continue with her current regimen of DuoNeb inhalations 4 times a day and when necessary, Pulmicort and Perforomist inhalations twice a day, IV Solu-Medrol 60 mg every 6 hours. She is on empiric antibiotics in the form of Zosyn. Overall prognosis remains quite poor. She is again educated regarding the importance of complete smoking cessation. She is a DO NOT RESUSCITATE/DO NOT INTUBATE CODE STATUS. We 'll continue to follow and make further recommendations based on her clinical status. I, the cosigning physician, performed a history & physical examination of the patient. Lungs sounds have bilateral end expiratory wheeze. Diminished throughout.. Maintaining good O2 saturations in the 90s on 35% FiO2 and a BiPAP of 12/6. I discussed the assessment and plan of care with my nurse practitioner, Modesta Colon. I attest to the above note as dictated by her.
[2017-05-24 12:04] LABS: Glucose,Whole Blood 145 mg/dL (75-99)
[2017-05-24] MEDS: MAG HYDROX/AL HYDROX/SIMETH 30 ML CUP PO PRN (14:34)
[2017-05-24] MEDS ORDERED: Potassium Replacement Protocol 1 EACH MISC MISCELLANE PRN (14:43)
[2017-05-24] MEDS ORDERED: NITROGLYCERIN SL TABS 0.4 MG TAB SUBLINGUAL PRN (14:44)
[2017-05-24] MEDS: POTASSIUM CHLORIDE ER 20 MEQ TAB.ER PO SCH ×2 (15:53→17:23)
[2017-05-24 16:33] LABS: Glucose,Whole Blood 226 mg/dL (75-99)
[2017-05-24] MEDS ORDERED: Magnesium Replacement Protocol 1 EACH MISC MISCELLANE PRN (19:00)
--- NOTE | 2017-05-24 19:09 | P.PN ---
Subjective Progress Note Date: 05/24/17 Progress note being dictated for Dr. Olvera This is a 67-year-old female admitted with acute on chronic hypoxic and hypercapnic respiratory failure in a patient with end-stage COPD, ongoing nicotine dependence and multiple other medical issues. Maintained on BiPAP with slow improvement. Hypertensive, home med Norvasc resumed. Denies chest pain, palpitations. 05/23/2017. Remains 35% Fio2 BiPAP dependent. Bicarb 35, maintaining O2 sats in the high 90s. Expresses she is hungry; minimal intake as she is only able to tolerate a few minutes on high flow nasal cannula. Dyspneic with minimal exertion. Chest pain, palpitations. Afebrile. 05/24/17 remains on BiPAP dependent, but able to tolerate high flow nasal cannula during lunchtime about 10-15 minutes, consuming 50%. Hypokalemic. Afebrile. Denies chest pain, palpitations. Objective - Vital Signs Vital signs: Vital Signs Temp 96.8 F L 05/24/17 11:05 Pulse 73 05/24/17 16:17 Resp 18 05/24/17 15:53 BP 140/84 05/24/17 15:53 Pulse Ox 98 05/24/17 15:53 Intake & Output 05/23/17 05/24/17 05/24/17 18:59 06:59 18:59 Intake Total 360 100 Output Total 2966 4003 320 Balance -2604 -9623 -320 Weight 39.3 kg 39.3 kg Intake: Intake, IV Titration 50 Amount Piperacillin-Tazobactam 3 50 .375 gm In Dextrose/Water 1 50ml.bag @ 12.5 mls/hr IVPB Q8H [facility] Rx#: [id number] Oral 360 50 Output: Urine 2950 4003 320 Post Void Residual 16 Other: Voiding Method Bedside Commode Bedside Commode Bedside Commode Bedpan Bedpan Bedpan # Voids 2 1 1 - Exam PHYSICAL EXAM: VITAL SIGNS: As above GENERAL: Sitting up in bed, more alert today, cachectic, wearing BiPAP HEENT: Conjunctivae normal. eyes normal. NECK: No JVD. No thyroid enlargement. No LNs CARDIOVASCULAR: S1, S2 muffled. No murmur RESPIRATION: Breath sounds diminished in the bases. Scattered rhonchi AND crackles. Occasional expiratory wheezing noted ABDOMEN: Soft, nontender . No guarding. no masses palpable. Bowel sounds heard. LEGS: No edema. no swelling PSYCHIATRY: Alert and oriented -3, mood and affect normal. NERVOUS SYSTEM: Cranial N 2-12 grossly normal. Moves all 4 limbs. Diffuse weakness No focal deficits. Skin: no rash Joints: No active swelling. No inflammation. - Labs CBC & Chem 7: 05/24/17 05:41 05/24/17 05:41 Labs: Abnormal Lab Results - Last 24 Hours (Table) 05/23/17 05/24/17 05/24/17 Range/Units 20:43 05:41 05:41 Lymphocytes # 0.5 L (1.0-4.8) k/uL Sodium 134 L (137-145) mmol/L Potassium 3.4 L (3.5-5.1) mmol/L Chloride 89 L (98-107) mmol/L Carbon Dioxide 37 H (22-30) mmol/L BUN 19 H (7-17) mg/dL Creatinine 0.50 L (0.52-1.04) mg/dL Glucose 140 H (74-99) mg/dL POC Glucose (mg/dL) 223 H (75-99) mg/dL 05/24/17 05/24/17 05/24/17 Range/Units 06:06 11:51 16:23 Lymphocytes # (1.0-4.8) k/uL Sodium (137-145) mmol/L Potassium (3.5-5.1) mmol/L Chloride (98-107) mmol/L Carbon Dioxide (22-30) mmol/L BUN (7-17) mg/dL Creatinine (0.52-1.04) mg/dL Glucose (74-99) mg/dL POC Glucose (mg/dL) 141 H 145 H 226 H (75-99) mg/dL Assessment and Plan Assessment: 1. Acute exacerbation COPD with acute purulent tracheobronchitis, acute on chronic hypoxic, hypercapnic respiratory failure 2. Chest pain with troponin 0.77, possible acute non-STEMI,TYPE II, not a candidate for aggressive cardiac workup given respiratory status 3. Hyponatremia 4. Ongoing nicotine dependence 5. Advanced end-stage COPD 6. Chronic hypoxic respiratory failure on home O2, 5 L 7. Moderate protein calorie malnutrition, BMI 16.4 Plan: Continue on current medication regime ,monitoring and symptomatic treatment. Continue on Zosyn ,nebulized bronchodilators, steroids, prn BiPAP. Minimal diet intake. Prognosis poor given multiple complex medical issues. The impression and plan of care has been dictated as directed. : I performed a history and examination of this patient, discussed the same with the dictator. I agree with the dictator's note ,documented as a scribe. Any additional findings or plans will be noted.
[2017-05-24 20:12] LABS: Albumin 3.1 g/dL (3.5-5.0); Magnesium 2.1 mg/dL (1.6-2.3)
[2017-05-24 20:26] LABS: Glucose,Whole Blood 173 mg/dL (75-99)
[2017-05-24] MEDS: LORazepam 1 MG TAB PO SCH (21:57)
[2017-05-25] MEDS: PIPERACILLIN-TAZOBACTAM 3.375 GM in DEXTROSE/WATER 1 50ML.BAG IVPB SCH ×3 (03:30→19:37)
[2017-05-25] MEDS ORDERED: Potassium Replacement Protocol 1 EACH MISC MISCELLANE PRN (03:43)
[2017-05-25] MEDS: POTASSIUM CHLORIDE ER 20 MEQ TAB.ER PO SCH ×2 (04:24→05:26)
[2017-05-25] MEDS: IPRATROPIUM-ALBUTEROL 3 ML NEB INHALATION PRN (04:50)
[2017-05-25] MEDS: methylPREDNISolone SOD SUCCI 125 MG/2 ML VIAL IV SCH ×3 (05:26→17:25)
[2017-05-25 07:56] LABS: Glucose,Whole Blood 149 mg/dL (75-99)
[2017-05-25] MEDS: INSULIN ASPART 100 UNIT/ML 1 ML 10 ML VIAL SQ SCH ×4 (08:15→21:58)
[2017-05-25] MEDS: METOPROLOL TARTRATE 12.5 MG TAB PO SCH ×2 (08:15→22:29)
[2017-05-25] MEDS: PANTOPRAZOLE 40 MG TABLET PO SCH ×2 (08:15→17:24)
[2017-05-25] MEDS: ASPIRIN 81 MG PO SCH (08:15)
[2017-05-25] MEDS: amLODIPine 2.5 MG TAB PO SCH (08:15)
[2017-05-25] MEDS: ISOSORBIDE MONONITRATE ER 15 MG TAB PO SCH (08:15)
[2017-05-25] MEDS: IPRATROPIUM-ALBUTEROL 3 ML NEB INHALATION SCH ×4 (08:58→21:38)
[2017-05-25] MEDS: BUDESONIDE 1 MG/2 ML NEBU INHALATION SCH ×2 (08:58→21:37)
[2017-05-25] MEDS: FORMOTEROL FUMARATE 20 MCG/2 ML NEBU INHALATION SCH ×2 (08:58→21:38)
[2017-05-25 09:09] LABS: Magnesium 2.3 mg/dL (1.6-2.3); Potassium 4.5 mmol/L (3.5-5.1)
[2017-05-25 11:37] LABS: Glucose,Whole Blood 458 mg/dL (75-99)
--- NOTE | 2017-05-25 11:41 | P.PN ---
Subjective Progress Note Date: 05/25/17 Principal diagnosis: Acute exacerbation of severe end-stage chronic obstructive pulmonary disease This is a very pleasant 67-year-old female well-known to our service. She has a history of severe COPD. Heavy smoker. She has end-stage disease. She is both oxygen and steroid dependent. She presented to the emergency room on 05/19 in the morning with complaints of increasing shortness of breath. She had severe conversational dyspnea. Her shortness of breath or been going on for about a week and getting much worse. In addition she has a bit of pain in the chest mostly on deep breathing and a nonproductive cough. No fever no chills. No nausea vomiting or diarrhea. She is currently resting comfortably in bed. She remains on the BiPAP at settings of 12/6 and 35% FiO2. She is maintaining good O2 saturations in the upper 90s. She comes off the BiPAP briefly for meals however her appetite is quite poor. She is very frail and cachectic. She is dyspneic with conversation a minimal exertion. She is slow to progress. She is afebrile. No leukocytosis. Bicarb 35. The patient is seen again today 05/24/2017 in follow-up on the selective care unit. She is more awake and alert today as compared to yesterday. She is still however quite BiPAP dependent. Still 12/6 at 35% FiO2 and maintaining good O2 saturations in the upper 90s. She has been afebrile. Hemodynamically stable. No leukocytosis. Hemoglobin stable. Creatinine 1.50. Bicarb 37. She was off for approximately 15 minutes this morning for breakfast. Her appetite is slightly better but still minimal intake. On 05/25/2017 patient seen again in follow-up. She is on the fullface BiPAP mask, BiPAP support is at 12/6, FiO2 of 35%. She is able to come off the BiPAP intermittently to eat meals. Patient developed breakdown on the bridge of her nose due to BiPAP mask that she wore previously that rested on the bridge of her nose. The areas covered with a bandage. Patient's lung sounds are very diminished, no rhonchi or wheezes noted. Patient appears to be fairly comfortable on BiPAP. She denies any acute distress. No new labs or chest x- rays today. has been afebrile. Objective - Vital Signs Vital signs: Vital Signs Temp 97.9 F 05/25/17 08:00 Pulse 88 05/25/17 09:23 Resp 18 05/25/17 08:00 BP 171/81 05/25/17 08:00 Pulse Ox 100 05/25/17 08:00 Intake & Output 05/24/17 05/25/17 05/25/17 18:59 06:59 18:59 Intake Total 250 Output Total 320 Balance -320 250 Weight 39.3 kg 33.5 kg Intake: Intake, IV Titration 50 Amount Piperacillin-Tazobactam 3 50 .375 gm In Dextrose/Water 1 50ml.bag @ 12.5 mls/hr IVPB Q8H [facility] Rx#: [id number] Oral 200 Output: Urine 320 Other: Voiding Method Bedside Commode Bedside Commode Bedpan Bedpan # Voids 1 - Exam GENERAL EXAM: Very frail, cachectic. Appears older than her stated age. Alert , comfortable in no apparent distress. HEAD: Normocephalic. EYES: Normal reaction of pupils, equal size. NOSE: Clear with pink turbinates. THROAT: No erythema or exudates. NECK: No masses, no JVD. CHEST: No chest wall deformity. LUNGS: Equal air entry with no wheezes, rhonchi or rales. Diminished throughout. CVS: S1 and S2 normal with no audible murmur, regular rhythm. ABDOMEN: No hepatosplenomegaly, normal bowel sounds, no guarding or rigidity. SPINE: Kyphoscoliosis SKIN: No rashes CENTRAL NERVOUS SYSTEM: No focal deficits, tone is normal in all 4 extremities. EXTREMITIES: There is no peripheral edema. No clubbing, no cyanosis. Peripheral pulses are intact. - Labs CBC & Chem 7: 05/24/17 05:41 05/25/17 07:15 Labs: Abnormal Lab Results - Last 24 Hours (Table) 05/24/17 05/24/17 05/24/17 Range/Units 05:41 11:51 16:23 POC Glucose (mg/dL) 145 H 226 H (75-99) mg/dL Albumin 3.1 L (3.5-5.0) g/dL 05/24/17 05/25/17 Range/Units 20:25 07:37 POC Glucose (mg/dL) 173 H 149 H (75-99) mg/dL Albumin (3.5-5.0) g/dL Assessment and Plan Plan: Assessment: Acute on chronic hypoxemic respiratory failure secondary to COPD exacerbation History of severe end-stage oxygen and steroid dependent COPD with multiple hospital admissions. Chronic and ongoing tobacco dependence. Non-ST segment elevation myocardial infarction. Hypertension Hyperlipidemia Osteoarthritis History of pneumonia History of sleep apnea syndrome. History of skin cancer Gastroesophageal reflux disease Poor overall functional performance based on the above-mentioned comorbidities Plan Continue with current medical treatment, nebulized treatments, Pulmicort, formoterol, DuoNeb, continue IV Solu-Medrol at 60 mg every 6 hours. Continue Zosyn. Overall prognosis remains quite poor. Importance of smoking cessation was again revisited. Patient is a DO NOT RESUSCITATE DO NOT INTUBATE CODE STATUS. Continue intermittent BiPAP support. I performed a history & physical examination of the patient and discussed their management with my nurse practitioner, Alexus Rollins. I reviewed the nurse practitioner's note and agree with the documented findings and plan of care. Lung sounds are positive for very diminished lung sounds bilaterally. The findings and the impression was discussed with the patient. I attest to the documentation by the nurse practitioner. Time with Patient: Less than 30
[2017-05-25 12:27] LABS: Glucose,Whole Blood 309 mg/dL (75-99)
[2017-05-25] MEDS: BISACODYL 5 MG TABLET.DR PO PRN (12:49)
[2017-05-25] MEDS: THEOPHYLLINE 24 HOUR 300 MG CAP.ER.24H PO SCH (15:31)
[2017-05-25 17:11] LABS: Glucose,Whole Blood 128 mg/dL (75-99)
--- NOTE | 2017-05-25 17:23 | P.PN ---
Subjective Progress Note Date: 05/25/17 Progress note being dictated for Dr. Olvera This is a 67-year-old female admitted with acute on chronic hypoxic and hypercapnic respiratory failure in a patient with end-stage COPD, ongoing nicotine dependence and multiple other medical issues. Maintained on BiPAP with slow improvement. Hypertensive, home med Norvasc resumed. Denies chest pain, palpitations. 05/23/2017. Remains 35% Fio2 BiPAP dependent. Bicarb 35, maintaining O2 sats in the high 90s. Expresses she is hungry; minimal intake as she is only able to tolerate a few minutes on high flow nasal cannula. Dyspneic with minimal exertion. Chest pain, palpitations. Afebrile. 05/24/17 remains on BiPAP dependent, but able to tolerate high flow nasal cannula during lunchtime about 10-15 minutes, consuming 50%. Hypokalemic. Afebrile. Denies chest pain, palpitations. 05/25/17 no overnight events.remains BiPAP dependent, minimal intake on high flow nasal cannula. Afebrile. Objective - Vital Signs Vital signs: Vital Signs Temp 97.9 F 05/25/17 08:00 Pulse 84 05/25/17 17:05 Resp 22 05/25/17 15:00 BP 140/70 05/25/17 15:00 Pulse Ox 99 05/25/17 15:00 Intake & Output 05/24/17 05/25/17 05/25/17 18:59 06:59 18:59 Intake Total 250 120 Output Total 320 320 Balance -320 250 -200 Weight 39.3 kg 33.5 kg 33.5 kg Intake: Intake, IV Titration 50 Amount Piperacillin-Tazobactam 3 50 .375 gm In Dextrose/Water 1 50ml.bag @ 12.5 mls/hr IVPB Q8H [facility] Rx#: [id number] Oral 200 120 Output: Urine 320 320 Other: Voiding Method Bedside Commode Bedside Commode Bedside Commode Bedpan Bedpan # Voids 1 1 - Exam PHYSICAL EXAM: VITAL SIGNS: As above GENERAL: Sitting up in bed,tired appearing, cachectic, wearing BiPAP HEENT: Conjunctivae normal. eyes normal. NECK: No JVD. No thyroid enlargement. No LNs CARDIOVASCULAR: S1, S2 muffled. No murmur RESPIRATION: Breath sounds diminished in the bases. Scattered rhonchi AND crackles. Occasional expiratory wheezing noted ABDOMEN: Soft, nontender . No guarding. no masses palpable. Bowel sounds heard. LEGS: No edema. no swelling PSYCHIATRY: Alert and oriented -3, mood and affect normal. NERVOUS SYSTEM: Cranial N 2-12 grossly normal. Moves all 4 limbs. Diffuse weakness No focal deficits. Skin: no rash Joints: No active swelling. No inflammation. - Labs CBC & Chem 7: 05/24/17 05:41 05/25/17 07:15 Labs: Abnormal Lab Results - Last 24 Hours (Table) 05/24/17 05/24/17 05/25/17 Range/Units 05:41 20:25 07:37 POC Glucose (mg/dL) 173 H 149 H (75-99) mg/dL Albumin 3.1 L (3.5-5.0) g/dL 05/25/17 05/25/17 05/25/17 Range/Units 11:29 12:25 17:04 POC Glucose (mg/dL) 458 H 309 H 128 H (75-99) mg/dL Albumin (3.5-5.0) g/dL Assessment and Plan Assessment: 1. Acute exacerbation COPD with acute purulent tracheobronchitis, acute on chronic hypoxic, hypercapnic respiratory failure 2. Chest pain with troponin 0.77, possible acute non-STEMI,TYPE II, not a candidate for aggressive cardiac workup given respiratory status 3. Hyponatremia 4. Ongoing nicotine dependence 5. Advanced end-stage COPD 6. Chronic hypoxic respiratory failure on home O2, 5 L 7. Moderate protein calorie malnutrition, BMI 16.4 Plan: Continue on current medication regime ,monitoring and symptomatic treatment. Continue on Zosyn ,nebulized bronchodilators, steroids, prn BiPAP. Prognosis poor given multiple complex medical issues. The impression and plan of care has been dictated as directed. : I performed a history and examination of this patient, discussed the same with the dictator. I agree with the dictator's note ,documented as a scribe. Any additional findings or plans will be noted.
[2017-05-25 20:46] LABS: Glucose,Whole Blood 224 mg/dL (75-99)
[2017-05-25] MEDS: LORazepam 1 MG TAB PO SCH (21:58)
[2017-05-26] MEDS: IPRATROPIUM-ALBUTEROL 3 ML NEB INHALATION PRN (04:05)
[2017-05-26] MEDS: PIPERACILLIN-TAZOBACTAM 3.375 GM in DEXTROSE/WATER 1 50ML.BAG IVPB SCH ×3 (04:10→22:39)
[2017-05-26] MEDS: methylPREDNISolone SOD SUCCI 125 MG/2 ML VIAL IV SCH ×2 (05:52)
[2017-05-26] MEDS: BUDESONIDE 1 MG/2 ML NEBU INHALATION SCH ×2 (07:09→20:33)
[2017-05-26] MEDS: FORMOTEROL FUMARATE 20 MCG/2 ML NEBU INHALATION SCH ×2 (07:09→20:32)
[2017-05-26] MEDS: IPRATROPIUM-ALBUTEROL 3 ML NEB INHALATION SCH ×4 (07:09→20:32)
[2017-05-26 07:42] LABS: Glucose,Whole Blood 153 mg/dL (75-99)
[2017-05-26] MEDS: ASPIRIN 81 MG PO SCH (08:14)
[2017-05-26] MEDS: THEOPHYLLINE 24 HOUR 300 MG CAP.ER.24H PO SCH (08:14)
[2017-05-26] MEDS: INSULIN ASPART 100 UNIT/ML 1 ML 10 ML VIAL SQ SCH ×4 (08:14→22:39)
[2017-05-26] MEDS: PANTOPRAZOLE 40 MG TABLET PO SCH ×2 (08:14→17:51)
[2017-05-26] MEDS: METOPROLOL TARTRATE 12.5 MG TAB PO SCH ×2 (08:14→22:40)
[2017-05-26] MEDS: amLODIPine 2.5 MG TAB PO SCH (08:14)
[2017-05-26] MEDS: ISOSORBIDE MONONITRATE ER 15 MG TAB PO SCH (08:14)
[2017-05-26 09:02] LABS: Anion Gap 9 mmol/L; Blood Urea Nitrogen 23 mg/dL (7-17); Calcium 9.2 mg/dL (8.4-10.2); Carbon Dioxide 31 mmol/L (22-30); Chloride 94 mmol/L (98-107); Glucose 145 mg/dL (74-99); Potassium 4.3 mmol/L (3.5-5.1); Sodium 134 mmol/L (137-145)
[2017-05-26] MEDS: predniSONE 10 MG TAB PO SCH (10:29)
[2017-05-26 12:01] VITALS: BMI 13.9
[2017-05-26 12:12] LABS: Glucose,Whole Blood 179 mg/dL (75-99)
--- NOTE | 2017-05-26 12:20 | P.PN ---
Subjective Progress Note Date: 05/26/17 Principal diagnosis: Acute on chronic hypoxic and hypercapnic respiratory failure secondary to severe end-stage COPD exacerbation. This is a very pleasant 67-year-old female well-known to our service. She has a history of severe COPD. Heavy smoker. She has end-stage disease. She is both oxygen and steroid dependent. She presented to the emergency room on 05/19 in the morning with complaints of increasing shortness of breath. She had severe conversational dyspnea. Her shortness of breath or been going on for about a week and getting much worse. In addition she has a bit of pain in the chest mostly on deep breathing and a nonproductive cough. No fever no chills. No nausea vomiting or diarrhea. She is currently resting comfortably in bed. She remains on the BiPAP at settings of 12/6 and 35% FiO2. She is maintaining good O2 saturations in the upper 90s. She comes off the BiPAP briefly for meals however her appetite is quite poor. She is very frail and cachectic. She is dyspneic with conversation a minimal exertion. She is slow to progress. She is afebrile. No leukocytosis. Bicarb 35. The patient is seen again today 05/24/2017 in follow-up on the selective care unit. She is more awake and alert today as compared to yesterday. She is still however quite BiPAP dependent. Still 12/6 at 35% FiO2 and maintaining good O2 saturations in the upper 90s. She has been afebrile. Hemodynamically stable. No leukocytosis. Hemoglobin stable. Creatinine 1.50. Bicarb 37. She was off for approximately 15 minutes this morning for breakfast. Her appetite is slightly better but still minimal intake. On 05/25/2017 patient seen again in follow-up. She is on the fullface BiPAP mask, BiPAP support is at 12/6, FiO2 of 35%. She is able to come off the BiPAP intermittently to eat meals. Patient developed breakdown on the bridge of her nose due to BiPAP mask that she wore previously that rested on the bridge of her nose. The areas covered with a bandage. Patient's lung sounds are very diminished, no rhonchi or wheezes noted. Patient appears to be fairly comfortable on BiPAP. She denies any acute distress. No new labs or chest x- rays today. has been afebrile. Reevaluated today on 05/26/2017, patient feels much better as long as she is using the BiPAP mask. Her FiO2 is low, patient is pleased with the fullface mask. Less cough and less wheezing less shortness of breath. Patient is wanting to go home, and she feels better than she has ever felt. Patient does not want to go to a rehab facility, she lives apparently with her son. Objective - Vital Signs Vital signs: Vital Signs Temp 97.6 F 05/26/17 07:00 Pulse 76 05/26/17 11:38 Resp 18 05/26/17 07:00 BP 129/82 05/26/17 07:00 Pulse Ox 98 05/26/17 07:00 Intake & Output 05/25/17 05/26/17 05/26/17 18:59 06:59 18:59 Intake Total 120 175 Output Total 320 Balance -200 175 Weight 33.5 kg 33.5 kg Intake: Intake, IV Titration 100 Amount Piperacillin-Tazobactam 3 100 .375 gm In Dextrose/Water 1 50ml.bag @ 12.5 mls/hr IVPB Q8H [facility] Rx#: [id number] Oral 120 75 Output: Urine 320 Other: Voiding Method Bedside Commode Bedside Commode Bedside Commode # Voids 1 2 - Exam GENERAL EXAM: Very frail, cachectic. Appears older than her stated age. Alert , comfortable in no apparent distress. HEAD: Normocephalic. EYES: Normal reaction of pupils, equal size. NOSE: Clear with pink turbinates. THROAT: No erythema or exudates. NECK: No masses, no JVD. CHEST: No chest wall deformity. LUNGS: Equal air entry with no wheezes, rhonchi or rales. Diminished throughout. CVS: S1 and S2 normal with no audible murmur, regular rhythm. ABDOMEN: No hepatosplenomegaly, normal bowel sounds, no guarding or rigidity. SPINE: Kyphoscoliosis SKIN: No rashes CENTRAL NERVOUS SYSTEM: No focal deficits, tone is normal in all 4 extremities. EXTREMITIES: There is no peripheral edema. No clubbing, no cyanosis. Peripheral pulses are intact. - Labs CBC & Chem 7: 05/24/17 05:41 05/26/17 07:19 Labs: Abnormal Lab Results - Last 24 Hours (Table) 05/25/17 05/25/17 05/25/17 Range/Units 12:25 17:04 20:43 Sodium (137-145) mmol/L Chloride (98-107) mmol/L Carbon Dioxide (22-30) mmol/L BUN (7-17) mg/dL Creatinine (0.52-1.04) mg/dL Glucose (74-99) mg/dL POC Glucose (mg/dL) 309 H 128 H 224 H (75-99) mg/dL 05/26/17 05/26/17 05/26/17 Range/Units 07:19 07:25 12:10 Sodium 134 L (137-145) mmol/L Chloride 94 L (98-107) mmol/L Carbon Dioxide 31 H (22-30) mmol/L BUN 23 H (7-17) mg/dL Creatinine 0.46 L (0.52-1.04) mg/dL Glucose 145 H (74-99) mg/dL POC Glucose (mg/dL) 153 H 179 H (75-99) mg/dL Assessment and Plan Assessment: Acute on chronic hypoxemic and hypercapnic respiratory failure secondary to COPD exacerbation History of severe end-stage oxygen and steroid dependent COPD with multiple hospital admissions. Chronic and ongoing tobacco dependence. Non-ST segment elevation myocardial infarction. Hypertension Hyperlipidemia Osteoarthritis History of pneumonia History of sleep apnea syndrome. History of skin cancer Gastroesophageal reflux disease Poor overall functional performance based on the above-mentioned comorbidities Recommendation: Agree with discharge planning, switch patient to oral prednisone and taper over a period of the next 4 weeks, follow-up with Dr. Vang on outpatient basis, clear for discharge today, prognosis remains very poor and guarded. Time with Patient: Less than 30
[2017-05-26] MEDS: HYDROcodone/APAP 7.5-325MG 1 EACH TAB PO PRN (12:33)
[2017-05-26] MEDS: LORazepam 2 MG/ML INJ IV PRN (15:50)
[2017-05-26 17:45] LABS: Glucose,Whole Blood 176 mg/dL (75-99)
--- NOTE | 2017-05-26 18:47 | P.PN ---
Subjective Progress Note Date: 05/26/17 Progress note being dictated for Dr. Olvera This is a 67-year-old female admitted with acute on chronic hypoxic and hypercapnic respiratory failure in a patient with end-stage COPD, ongoing nicotine dependence and multiple other medical issues. Maintained on BiPAP with slow improvement. Hypertensive, home med Norvasc resumed. Denies chest pain, palpitations. 05/23/2017. Remains 35% Fio2 BiPAP dependent. Bicarb 35, maintaining O2 sats in the high 90s. Expresses she is hungry; minimal intake as she is only able to tolerate a few minutes on high flow nasal cannula. Dyspneic with minimal exertion. Chest pain, palpitations. Afebrile. 05/24/17 remains on BiPAP dependent, but able to tolerate high flow nasal cannula during lunchtime about 10-15 minutes, consuming 50%. Hypokalemic. Afebrile. Denies chest pain, palpitations. 05/25/17 no overnight events.remains BiPAP dependent, minimal intake on high flow nasal cannula. Afebrile. 05/26/17 maintained on BiPAP with full facemask, wheezing improving. Denies chest pain, palpitations. Objective - Vital Signs Vital signs: Vital Signs Temp 97.6 F 05/26/17 15:00 Pulse 112 H 05/26/17 16:02 Resp 20 05/26/17 15:00 BP 107/78 05/26/17 15:00 Pulse Ox 100 05/26/17 15:00 Intake & Output 05/25/17 05/26/17 05/26/17 18:59 06:59 18:59 Intake Total 120 175 50 Output Total 320 Balance -200 175 50 Weight 33.5 kg 33.5 kg Intake: Intake, IV Titration 100 50 Amount Piperacillin-Tazobactam 3 100 50 .375 gm In Dextrose/Water 1 50ml.bag @ 12.5 mls/hr IVPB Q8H [facility] Rx#: [id number] Oral 120 75 Output: Urine 320 Other: Voiding Method Bedside Commode Bedside Commode Bedside Commode # Voids 1 2 1 - Exam PHYSICAL EXAM: VITAL SIGNS: As above GENERAL: Sitting up in bed, more alert today wearing BiPAP HEENT: Conjunctivae normal. eyes normal. NECK: No JVD. No thyroid enlargement. No LNs CARDIOVASCULAR: S1, S2 muffled. No murmur RESPIRATION: Kyphoscoliosis. Breath sounds diminished in the bases. Scattered rhonchi, fine crackles scattered. No wheezing noted ABDOMEN: Soft, nontender . No guarding. no masses palpable. Bowel sounds heard. LEGS: No edema. no swelling PSYCHIATRY: Alert and oriented -3, mood and affect normal. NERVOUS SYSTEM: Cranial N 2-12 grossly normal. Moves all 4 limbs. Diffuse weakness No focal deficits. Skin: no rash Joints: No active swelling. No inflammation. - Labs CBC & Chem 7: 05/24/17 05:41 05/26/17 07:19 Labs: Abnormal Lab Results - Last 24 Hours (Table) 05/25/17 05/26/17 05/26/17 Range/Units 20:43 07:19 07:25 Sodium 134 L (137-145) mmol/L Chloride 94 L (98-107) mmol/L Carbon Dioxide 31 H (22-30) mmol/L BUN 23 H (7-17) mg/dL Creatinine 0.46 L (0.52-1.04) mg/dL Glucose 145 H (74-99) mg/dL POC Glucose (mg/dL) 224 H 153 H (75-99) mg/dL 05/26/17 05/26/17 Range/Units 12:10 17:42 Sodium (137-145) mmol/L Chloride (98-107) mmol/L Carbon Dioxide (22-30) mmol/L BUN (7-17) mg/dL Creatinine (0.52-1.04) mg/dL Glucose (74-99) mg/dL POC Glucose (mg/dL) 179 H 176 H (75-99) mg/dL Assessment and Plan Assessment: 1. Acute exacerbation COPD with acute purulent tracheobronchitis, acute on chronic hypoxic, hypercapnic respiratory failure 2. Chest pain with troponin 0.77, possible acute non-STEMI,TYPE II, not a candidate for aggressive cardiac workup given respiratory status 3. Hyponatremia 4. Ongoing nicotine dependence 5. Advanced end-stage COPD 6. Chronic hypoxic respiratory failure on home O2, 5 L 7. Moderate protein calorie malnutrition, BMI 16.4 Plan: Continue on current medication regime ,monitoring and symptomatic treatment. Continue on Zosyn ,nebulized bronchodilators, steroids, BiPAP. Steroid tapering in progress, converted to oral prednisone. Patient requesting to go home on BiPAP with son. Discharge planning in progress, for today, once case management secures BiPAP/ face mask. Prognosis poor given multiple complex medical issues. The impression and plan of care has been dictated as directed. : I performed a history and examination of this patient, discussed the same with the dictator. I agree with the dictator's note ,documented as a scribe. Any additional findings or plans will be noted.
[2017-05-26 21:06] LABS: Glucose,Whole Blood 134 mg/dL (75-99)
[2017-05-26] MEDS: LORazepam 1 MG TAB PO SCH (22:40)
[2017-05-27] MEDS: PIPERACILLIN-TAZOBACTAM 3.375 GM in DEXTROSE/WATER 1 50ML.BAG IVPB SCH ×3 (04:49→20:04)
[2017-05-27 06:59] LABS: Glucose,Whole Blood 87 mg/dL (75-99)
[2017-05-27] MEDS: INSULIN ASPART 100 UNIT/ML 1 ML 10 ML VIAL SQ SCH ×4 (07:12→20:53)
[2017-05-27] MEDS: BUDESONIDE 1 MG/2 ML NEBU INHALATION SCH ×2 (07:16→18:12)
[2017-05-27] MEDS: IPRATROPIUM-ALBUTEROL 3 ML NEB INHALATION SCH ×4 (07:16→18:11)
[2017-05-27] MEDS: FORMOTEROL FUMARATE 20 MCG/2 ML NEBU INHALATION SCH ×2 (07:26→18:28)
[2017-05-27 07:38] LABS: Anion Gap 7 mmol/L; Blood Urea Nitrogen 31 mg/dL (7-17); Calcium 9.2 mg/dL (8.4-10.2); Carbon Dioxide 35 mmol/L (22-30); Chloride 97 mmol/L (98-107); Glucose 82 mg/dL (74-99); Potassium 4.1 mmol/L (3.5-5.1); Sodium 139 mmol/L (137-145)
[2017-05-27] MEDS: THEOPHYLLINE 24 HOUR 300 MG CAP.ER.24H PO SCH (07:55)
[2017-05-27] MEDS: ISOSORBIDE MONONITRATE ER 15 MG TAB PO SCH (07:55)
[2017-05-27] MEDS: amLODIPine 2.5 MG TAB PO SCH (07:55)
[2017-05-27] MEDS: ASPIRIN 81 MG PO SCH (07:55)
[2017-05-27] MEDS: METOPROLOL TARTRATE 12.5 MG TAB PO SCH ×2 (07:55→20:53)
[2017-05-27] MEDS: PANTOPRAZOLE 40 MG TABLET PO SCH ×2 (07:55→17:46)
[2017-05-27] MEDS: predniSONE 10 MG TAB PO SCH (07:55)
[2017-05-27 11:16] LABS: Glucose,Whole Blood 151 mg/dL (75-99)
--- NOTE | 2017-05-27 12:52 | P.PN ---
Subjective Progress Note Date: 05/27/17 Principal diagnosis: Acute on chronic hypoxic and hypercapnic respiratory failure secondary to severe end-stage COPD exacerbation. This is a very pleasant 67-year-old female well-known to our service. She has a history of severe COPD. Heavy smoker. She has end-stage disease. She is both oxygen and steroid dependent. She presented to the emergency room on 05/19 in the morning with complaints of increasing shortness of breath. She had severe conversational dyspnea. Her shortness of breath or been going on for about a week and getting much worse. In addition she has a bit of pain in the chest mostly on deep breathing and a nonproductive cough. No fever no chills. No nausea vomiting or diarrhea. She is currently resting comfortably in bed. She remains on the BiPAP at settings of 12/6 and 35% FiO2. She is maintaining good O2 saturations in the upper 90s. She comes off the BiPAP briefly for meals however her appetite is quite poor. She is very frail and cachectic. She is dyspneic with conversation a minimal exertion. She is slow to progress. She is afebrile. No leukocytosis. Bicarb 35. The patient is seen again today 05/24/2017 in follow-up on the selective care unit. She is more awake and alert today as compared to yesterday. She is still however quite BiPAP dependent. Still 12/6 at 35% FiO2 and maintaining good O2 saturations in the upper 90s. She has been afebrile. Hemodynamically stable. No leukocytosis. Hemoglobin stable. Creatinine 1.50. Bicarb 37. She was off for approximately 15 minutes this morning for breakfast. Her appetite is slightly better but still minimal intake. On 05/25/2017 patient seen again in follow-up. She is on the fullface BiPAP mask, BiPAP support is at 12/6, FiO2 of 35%. She is able to come off the BiPAP intermittently to eat meals. Patient developed breakdown on the bridge of her nose due to BiPAP mask that she wore previously that rested on the bridge of her nose. The areas covered with a bandage. Patient's lung sounds are very diminished, no rhonchi or wheezes noted. Patient appears to be fairly comfortable on BiPAP. She denies any acute distress. No new labs or chest x- rays today. has been afebrile. Reevaluated today on 05/26/2017, patient feels much better as long as she is using the BiPAP mask. Her FiO2 is low, patient is pleased with the fullface mask. Less cough and less wheezing less shortness of breath. Patient is wanting to go home, and she feels better than she has ever felt. Patient does not want to go to a rehab facility, she lives apparently with her son. Reevaluated today on 05/27/2017, patient is still urging to be discharged home. Patient is feeling better, she tells me today that she has all the set up at home including BiPAP. And she has oxygen at home. I cleared her for discharge yesterday, and she'll be cleared for discharge again today. Objective - Vital Signs Vital signs: Vital Signs Temp 97.1 F L 05/27/17 07:00 Pulse 88 05/27/17 11:38 Resp 18 05/27/17 11:38 BP 148/89 05/27/17 07:00 Pulse Ox 98 05/27/17 07:16 Intake & Output 05/26/17 05/27/17 05/27/17 18:59 06:59 18:59 Intake Total 50 125 Balance 50 125 Weight 33.5 kg Intake: Intake, IV Titration 50 50 Amount Piperacillin-Tazobactam 3 50 50 .375 gm In Dextrose/Water 1 50ml.bag @ 12.5 mls/hr IVPB Q8H [facility] Rx#: [id number] Oral 75 Other: Voiding Method Bedside Commode Bedside Commode # Voids 1 1 2 # Bowel Movements 1 - Exam GENERAL EXAM: Very frail, cachectic. Appears older than her stated age. Alert , comfortable in no apparent distress. HEAD: Normocephalic. EYES: Normal reaction of pupils, equal size. NOSE: Clear with pink turbinates. THROAT: No erythema or exudates. NECK: No masses, no JVD. CHEST: No chest wall deformity. LUNGS: Equal air entry with no wheezes, rhonchi or rales. Diminished throughout. CVS: S1 and S2 normal with no audible murmur, regular rhythm. ABDOMEN: No hepatosplenomegaly, normal bowel sounds, no guarding or rigidity. SPINE: Kyphoscoliosis SKIN: No rashes CENTRAL NERVOUS SYSTEM: No focal deficits, tone is normal in all 4 extremities. EXTREMITIES: There is no peripheral edema. No clubbing, no cyanosis. Peripheral pulses are intact. - Labs CBC & Chem 7: 05/24/17 05:41 05/27/17 07:00 Labs: Abnormal Lab Results - Last 24 Hours (Table) 05/26/17 05/26/17 05/27/17 Range/Units 17:42 21:03 07:00 Chloride 97 L (98-107) mmol/L Carbon Dioxide 35 H (22-30) mmol/L BUN 31 H (7-17) mg/dL POC Glucose (mg/dL) 176 H 134 H (75-99) mg/dL 05/27/17 Range/Units 11:12 Chloride (98-107) mmol/L Carbon Dioxide (22-30) mmol/L BUN (7-17) mg/dL POC Glucose (mg/dL) 151 H (75-99) mg/dL Assessment and Plan Assessment: Acute on chronic hypoxemic and hypercapnic respiratory failure secondary to COPD exacerbation History of severe end-stage oxygen and steroid dependent COPD with multiple hospital admissions. Chronic and ongoing tobacco dependence. Non-ST segment elevation myocardial infarction. Hypertension Hyperlipidemia Osteoarthritis History of pneumonia History of sleep apnea syndrome. History of skin cancer Gastroesophageal reflux disease Poor overall functional performance based on the above-mentioned comorbidities Recommendation: Continue present treatment plan, clear for discharge, prognosis is extremely poor and guarded, patient has all this workup including BiPAP at home. Time with Patient: Less than 30
[2017-05-27 17:46] LABS: Glucose,Whole Blood 169 mg/dL (75-99)
[2017-05-27] MEDS: LORazepam 2 MG/ML INJ IV PRN (20:02)
[2017-05-27] MEDS: HYDROcodone/APAP 7.5-325MG 1 EACH TAB PO PRN (20:03)
[2017-05-27] MEDS: LORazepam 1 MG TAB PO SCH (20:07)
[2017-05-27 20:36] LABS: Glucose,Whole Blood 141 mg/dL (75-99)
[2017-05-28] MEDS: PIPERACILLIN-TAZOBACTAM 3.375 GM in DEXTROSE/WATER 1 50ML.BAG IVPB SCH ×3 (03:41→20:17)
[2017-05-28 07:15] LABS: Glucose,Whole Blood 85 mg/dL (75-99)
[2017-05-28] MEDS: IPRATROPIUM-ALBUTEROL 3 ML NEB INHALATION SCH ×4 (07:17→19:05)
[2017-05-28] MEDS: BUDESONIDE 1 MG/2 ML NEBU INHALATION SCH ×2 (07:17→19:05)
[2017-05-28] MEDS: FORMOTEROL FUMARATE 20 MCG/2 ML NEBU INHALATION SCH ×2 (07:28→19:04)
[2017-05-28] MEDS: INSULIN ASPART 100 UNIT/ML 1 ML 10 ML VIAL SQ SCH ×4 (08:35→20:59)
[2017-05-28 08:37] LABS: Anion Gap 8 mmol/L; Blood Urea Nitrogen 28 mg/dL (7-17); Calcium 8.9 mg/dL (8.4-10.2); Carbon Dioxide 32 mmol/L (22-30); Chloride 97 mmol/L (98-107); Glucose 76 mg/dL (74-99); Potassium 3.9 mmol/L (3.5-5.1); Sodium 137 mmol/L (137-145)
[2017-05-28] MEDS: HYDROcodone/APAP 7.5-325MG 1 EACH TAB PO PRN ×2 (08:52→20:19)
[2017-05-28] MEDS: THEOPHYLLINE 24 HOUR 300 MG CAP.ER.24H PO SCH (08:52)
[2017-05-28] MEDS: PANTOPRAZOLE 40 MG TABLET PO SCH ×2 (08:52→17:49)
[2017-05-28] MEDS: ASPIRIN 81 MG PO SCH (08:52)
[2017-05-28] MEDS: amLODIPine 2.5 MG TAB PO SCH (08:52)
[2017-05-28] MEDS: predniSONE 10 MG TAB PO SCH (08:52)
[2017-05-28] MEDS: METOPROLOL TARTRATE 12.5 MG TAB PO SCH ×2 (08:53→21:00)
[2017-05-28] MEDS: ISOSORBIDE MONONITRATE ER 15 MG TAB PO SCH (08:53)
[2017-05-28 11:35] LABS: Glucose,Whole Blood 146 mg/dL (75-99)
[2017-05-28 15:53] VITALS: TEMP 97.6
--- NOTE | 2017-05-28 16:12 | P.PN ---
Subjective Progress Note Date: 05/28/17 Principal diagnosis: Acute on chronic hypoxic and hypercapnic respiratory failure secondary to severe end-stage COPD exacerbation. This is a very pleasant 67-year-old female well-known to our service. She has a history of severe COPD. Heavy smoker. She has end-stage disease. She is both oxygen and steroid dependent. She presented to the emergency room on 05/19 in the morning with complaints of increasing shortness of breath. She had severe conversational dyspnea. Her shortness of breath or been going on for about a week and getting much worse. In addition she has a bit of pain in the chest mostly on deep breathing and a nonproductive cough. No fever no chills. No nausea vomiting or diarrhea. She is currently resting comfortably in bed. She remains on the BiPAP at settings of 12/6 and 35% FiO2. She is maintaining good O2 saturations in the upper 90s. She comes off the BiPAP briefly for meals however her appetite is quite poor. She is very frail and cachectic. She is dyspneic with conversation a minimal exertion. She is slow to progress. She is afebrile. No leukocytosis. Bicarb 35. The patient is seen again today 05/24/2017 in follow-up on the selective care unit. She is more awake and alert today as compared to yesterday. She is still however quite BiPAP dependent. Still 12/6 at 35% FiO2 and maintaining good O2 saturations in the upper 90s. She has been afebrile. Hemodynamically stable. No leukocytosis. Hemoglobin stable. Creatinine 1.50. Bicarb 37. She was off for approximately 15 minutes this morning for breakfast. Her appetite is slightly better but still minimal intake. On 05/25/2017 patient seen again in follow-up. She is on the fullface BiPAP mask, BiPAP support is at 12/6, FiO2 of 35%. She is able to come off the BiPAP intermittently to eat meals. Patient developed breakdown on the bridge of her nose due to BiPAP mask that she wore previously that rested on the bridge of her nose. The areas covered with a bandage. Patient's lung sounds are very diminished, no rhonchi or wheezes noted. Patient appears to be fairly comfortable on BiPAP. She denies any acute distress. No new labs or chest x- rays today. has been afebrile. Reevaluated today on 05/26/2017, patient feels much better as long as she is using the BiPAP mask. Her FiO2 is low, patient is pleased with the fullface mask. Less cough and less wheezing less shortness of breath. Patient is wanting to go home, and she feels better than she has ever felt. Patient does not want to go to a rehab facility, she lives apparently with her son. Reevaluated today on 05/27/2017, patient is still urging to be discharged home. Patient is feeling better, she tells me today that she has all the set up at home including BiPAP. And she has oxygen at home. I cleared her for discharge yesterday, and she'll be cleared for discharge again today. Reevaluated today on 05/28/2017, still urging to go home, remains on BiPAP intermittently, doing well overall, patient will do well as long as she continues to use the BiPAP as needed at home. Cleared again for discharge, and I believe the plans are being made to discharge the patient home tomorrow. Objective - Vital Signs Vital signs: Vital Signs Temp 97.6 F 05/28/17 15:00 Pulse 92 05/28/17 15:00 Resp 20 05/28/17 15:00 BP 117/76 05/28/17 15:00 Pulse Ox 99 05/28/17 15:00 Intake & Output 05/27/17 05/28/17 05/28/17 18:59 06:59 18:59 Intake Total 200 360 240 Balance 200 360 240 Weight 33.5 kg Intake: Intake, IV Titration 50 Amount Piperacillin-Tazobactam 3 50 .375 gm In Dextrose/Water 1 50ml.bag @ 12.5 mls/hr IVPB Q8H [facility] Rx#: [id number] Oral 150 360 240 Other: Voiding Method Bedside Commode Bedside Commode Bedside Commode # Voids 1 2 2 # Bowel Movements 1 - Exam GENERAL EXAM: Very frail, cachectic. Appears older than her stated age. Alert , comfortable in no apparent distress. HEAD: Normocephalic. EYES: Normal reaction of pupils, equal size. NOSE: Clear with pink turbinates. THROAT: No erythema or exudates. NECK: No masses, no JVD. CHEST: No chest wall deformity. LUNGS: Equal air entry with no wheezes, rhonchi or rales. Diminished throughout. CVS: S1 and S2 normal with no audible murmur, regular rhythm. ABDOMEN: No hepatosplenomegaly, normal bowel sounds, no guarding or rigidity. SPINE: Kyphoscoliosis SKIN: No rashes CENTRAL NERVOUS SYSTEM: No focal deficits, tone is normal in all 4 extremities. EXTREMITIES: There is no peripheral edema. No clubbing, no cyanosis. Peripheral pulses are intact. - Labs CBC & Chem 7: 05/24/17 05:41 05/28/17 07:02 Labs: Abnormal Lab Results - Last 24 Hours (Table) 05/27/17 05/27/17 05/28/17 Range/Units 17:41 20:14 07:02 Chloride 97 L (98-107) mmol/L Carbon Dioxide 32 H (22-30) mmol/L BUN 28 H (7-17) mg/dL POC Glucose (mg/dL) 169 H 141 H (75-99) mg/dL 05/28/17 Range/Units 11:33 Chloride (98-107) mmol/L Carbon Dioxide (22-30) mmol/L BUN (7-17) mg/dL POC Glucose (mg/dL) 146 H (75-99) mg/dL Assessment and Plan Assessment: Acute on chronic hypoxemic and hypercapnic respiratory failure secondary to COPD exacerbation History of severe end-stage oxygen and steroid dependent COPD with multiple hospital admissions. Chronic and ongoing tobacco dependence. Non-ST segment elevation myocardial infarction. Hypertension Hyperlipidemia Osteoarthritis History of pneumonia History of sleep apnea syndrome. History of skin cancer Gastroesophageal reflux disease Poor overall functional performance based on the above-mentioned comorbidities Recommendation: Clear for discharge planning anytime in the next 24 hours Time with Patient: Less than 30
[2017-05-28 17:30] LABS: Glucose,Whole Blood 150 mg/dL (75-99)
[2017-05-28 19:59] LABS: Glucose,Whole Blood 200 mg/dL (75-99)
[2017-05-28] MEDS: LORazepam 1 MG TAB PO SCH (20:19)
--- NOTE | 2017-05-28 23:21 | P.PN ---
Subjective Progress Note Date: 05/27/17 Principal diagnosis: Acute advances COPD exacerbation This is a 67-year-old female admitted with acute on chronic hypoxic and hypercapnic respiratory failure in a patient with end-stage COPD, ongoing nicotine dependence and multiple other medical issues. Maintained on BiPAP with slow improvement. Hypertensive, home med Norvasc resumed. Denies chest pain, palpitations. 05/23/2017. Remains 35% Fio2 BiPAP dependent. Bicarb 35, maintaining O2 sats in the high 90s. Expresses she is hungry; minimal intake as she is only able to tolerate a few minutes on high flow nasal cannula. Dyspneic with minimal exertion. Chest pain, palpitations. Afebrile. 05/24/17 remains on BiPAP dependent, but able to tolerate high flow nasal cannula during lunchtime about 10-15 minutes, consuming 50%. Hypokalemic. Afebrile. Denies chest pain, palpitations. 05/25/17 no overnight events.remains BiPAP dependent, minimal intake on high flow nasal cannula. Afebrile. 05/26/17 maintained on BiPAP with full facemask, wheezing improving. Denies chest pain, palpitations. 05/27/2017. Patient still on BiPAP with full facemask. Bilateral air entry is much improved now. Clinically improving otherwise. Denied any fever or chills no commerce of chest pain or worsening shortness of breath. Anticipate discharge in next 1-2 days. Always on board All other review of systems negative except about Current medications reviewed Objective - Vital Signs Vital signs: Vital Signs Temp 98.8 F 05/27/17 15:00 Pulse 91 05/27/17 18:32 Resp 21 05/27/17 18:32 BP 105/70 05/27/17 15:00 Pulse Ox 97 05/27/17 15:00 Intake & Output 05/27/17 05/27/17 05/28/17 06:59 18:59 06:59 Intake Total 125 200 Balance 125 200 Intake: Intake, IV Titration 50 50 Amount Piperacillin-Tazobactam 3 50 50 .375 gm In Dextrose/Water 1 50ml.bag @ 12.5 mls/hr IVPB Q8H [facility] Rx#: [id number] Oral 75 150 Other: Voiding Method Bedside Commode Bedside Commode # Voids 1 1 # Bowel Movements 1 - Exam GENERAL: Sitting up in bed, more alert today wearing BiPAP HEENT: Conjunctivae normal. eyes normal. NECK: No JVD. No thyroid enlargement. No LNs CARDIOVASCULAR: S1, S2 muffled. No murmur RESPIRATION: Kyphoscoliosis. Breath sounds diminished in the bases. Scattered rhonchi, fine crackles scattered. No wheezing noted ABDOMEN: Soft, nontender . No guarding. no masses palpable. Bowel sounds heard. LEGS: No edema. no swelling PSYCHIATRY: Alert and oriented -3, mood and affect normal. NERVOUS SYSTEM: Cranial N 2-12 grossly normal. Moves all 4 limbs. Diffuse weakness No focal deficits. Skin: no rash Joints: No active swelling. No inflammation. - Labs CBC & Chem 7: 05/24/17 05:41 05/28/17 07:02 Labs: Abnormal Lab Results - Last 24 Hours (Table) 05/27/17 05/27/17 05/27/17 Range/Units 07:00 11:12 17:41 Chloride 97 L (98-107) mmol/L Carbon Dioxide 35 H (22-30) mmol/L BUN 31 H (7-17) mg/dL POC Glucose (mg/dL) 151 H 169 H (75-99) mg/dL 05/27/17 Range/Units 20:14 Chloride (98-107) mmol/L Carbon Dioxide (22-30) mmol/L BUN (7-17) mg/dL POC Glucose (mg/dL) 141 H (75-99) mg/dL Assessment and Plan Assessment: 1. Acute exacerbation COPD with acute purulent tracheobronchitis, acute on chronic hypoxic, hypercapnic respiratory failure 2. Chest pain with troponin 0.77, possible acute non-STEMI,TYPE II, not a candidate for aggressive cardiac workup given respiratory status 3. Hyponatremia 4. Ongoing nicotine dependence 5. Advanced end-stage COPD 6. Chronic hypoxic respiratory failure on home O2, 5 L 7. Moderate protein calorie malnutrition, BMI 16.4 Plan: Continue on current medication regime ,monitoring and symptomatic treatment. Continue on Zosyn ,nebulized bronchodilators, steroids, BiPAP. Steroid tapering in progress, converted to oral prednisone. Patient requesting to go home on BiPAP with son. Discharge planning in progress, for today, once case management secures BiPAP/ face mask. Prognosis poor given multiple complex medical issues. Time with Patient: Greater than 30
--- NOTE | 2017-05-28 23:22 | P.PN ---
Subjective Progress Note Date: 05/28/17 Principal diagnosis: Acute advances COPD exacerbation This is a 67-year-old female admitted with acute on chronic hypoxic and hypercapnic respiratory failure in a patient with end-stage COPD, ongoing nicotine dependence and multiple other medical issues. Maintained on BiPAP with slow improvement. Hypertensive, home med Norvasc resumed. Denies chest pain, palpitations. 05/23/2017. Remains 35% Fio2 BiPAP dependent. Bicarb 35, maintaining O2 sats in the high 90s. Expresses she is hungry; minimal intake as she is only able to tolerate a few minutes on high flow nasal cannula. Dyspneic with minimal exertion. Chest pain, palpitations. Afebrile. 05/24/17 remains on BiPAP dependent, but able to tolerate high flow nasal cannula during lunchtime about 10-15 minutes, consuming 50%. Hypokalemic. Afebrile. Denies chest pain, palpitations. 05/25/17 no overnight events.remains BiPAP dependent, minimal intake on high flow nasal cannula. Afebrile. 05/26/17 maintained on BiPAP with full facemask, wheezing improving. Denies chest pain, palpitations. 05/27/2017. Patient still on BiPAP with full facemask. Bilateral air entry is much improved now. Clinically improving otherwise. Denied any fever or chills no commerce of chest pain or worsening shortness of breath. Anticipate discharge in next 1-2 days. Pulmonary on board 05/28/2017 Patient is maintained on BiPAP with full mask. Otherwise no acute overnight issues. Anticipate discharged tomorrow. Otherwise no fever no chills no chest pain no worsening shortness of breath. No cough or sputum production. No other acute overnight issues. Active Medications Generic Name Dose Route Start Last Admin Trade Name Freq PRN Reason Stop Dose Admin Acetaminophen 650 mg 05/20/17 20:09 05/20/17 20:20 Tylenol Tab PO 650 mg Q6HR PRN Administration Fever and/ or Pain Hydrocodone Bitart/Acetaminophen 1 each 05/19/17 06:13 05/28/17 20:19 [place] 7.5-325 PO 1 each Q8H PRN Administration Moderate Pain Al Hydroxide/Mg Hydroxide 30 ml 05/19/17 18:03 05/24/17 14:34 Maalox PO 30 ml Q4HR PRN Administration GI Upset Albuterol/Ipratropium 3 ml 05/19/17 08:00 05/28/17 19:05 Duoneb 0.5 Mg-3 Mg/3 Ml Soln INHALATION 3 ml RT-QID [facility] Administration Albuterol/Ipratropium 3 ml 05/20/17 05:29 05/26/17 04:05 Duoneb 0.5 Mg-3 Mg/3 Ml Soln INHALATION 3 ml RT-Q4H PRN Administration Shortness Of Breath Or Wheezing Amlodipine Besylate 2.5 mg 05/22/17 12:15 05/28/17 08:52 Norvasc PO 2.5 mg DAILY [facility] Administration Aspirin 81 mg 05/19/17 15:00 05/28/17 08:52 Aspirin PO 81 mg DAILY [facility] Administration Bisacodyl 5 mg 05/20/17 21:34 05/25/17 12:49 Dulcolax PO 5 mg DAILY PRN Administration Constipation Budesonide 1 mg 05/19/17 20:00 05/28/17 19:05 Pulmicort INHALATION 1 mg RT-BID [facility] Administration Formoterol Fumarate 20 mcg 05/19/17 20:00 05/28/17 19:04 Perforomist INHALATION 20 mcg RT-BID [facility] Administration Piperacillin/Tazobactam/ 50 mls @ 12.5 mls/hr 05/21/17 12:00 05/28/17 20:17 Dextrose 3.375 gm/ IV Solution IVPB 12.5 mls/hr Q8H [facility] Administration Insulin Aspart 0 unit 05/19/17 17:30 05/28/17 20:59 Novolog SQ 2 unit ACHS [facility] Administration Protocol Isosorbide Mononitrate 15 mg 05/21/17 09:00 05/28/17 08:53 Imdur PO 15 mg DAILY [facility] Administration Lorazepam 1 mg 05/19/17 21:00 05/28/17 20:19 Ativan PO 1 mg HS [facility] Administration Lorazepam 0.5 mg 05/19/17 07:30 05/26/17 15:50 Ativan IV 0.5 mg Q8HR PRN Administration Anxiety Metoprolol Tartrate 12.5 mg 05/20/17 21:00 05/28/17 21:00 Lopressor PO 12.5 mg BID [facility] Administration Miscellaneous Information 1 each 05/24/17 14:43 Potassium Per Protocol MISCELLANE DAILY PRN Per Protocol Protocol Miscellaneous Information 1 each 05/24/17 19:00 Magnesium Per Protocol MISCELLANE DAILY PRN Per Protocol Protocol Miscellaneous Information 1 each 05/25/17 03:43 Potassium Per Protocol MISCELLANE DAILY PRN Per Protocol Protocol Nitroglycerin 0.4 mg 05/24/17 14:44 Nitrostat SUBLINGUAL Q5M PRN Chest Pain Pantoprazole Sodium 40 mg 05/20/17 07:30 05/28/17 17:49 Protonix PO 40 mg AC-BID [facility] Administration Prednisone 30 mg 05/26/17 09:30 05/28/17 08:52 PO 30 mg DAILY [facility] Administration Theophylline 300 mg 05/25/17 13:15 05/28/17 08:52 Fareed-24 PO 300 mg DAILY [facility] Administration All other review of systems negative except about Current medications reviewed Objective - Vital Signs Vital signs: Vital Signs Temp 97.6 F 05/28/17 15:00 Pulse 100 05/28/17 19:21 Resp 19 05/28/17 15:55 BP 117/76 05/28/17 15:00 Pulse Ox 99 05/28/17 15:00 Intake & Output 05/28/17 05/28/17 05/29/17 06:59 18:59 06:59 Intake Total 360 240 Balance 360 240 Weight 33.5 kg Intake: Oral 360 240 Other: Voiding Method Bedside Commode Bedside Commode # Voids 2 2 - Exam GENERAL: Sitting up in bed, more alert today wearing BiPAP HEENT: Conjunctivae normal. eyes normal. NECK: No JVD. No thyroid enlargement. No LNs CARDIOVASCULAR: S1, S2 muffled. No murmur RESPIRATION: Kyphoscoliosis. Breath sounds diminished in the bases. Scattered rhonchi, fine crackles scattered. No wheezing noted ABDOMEN: Soft, nontender . No guarding. no masses palpable. Bowel sounds heard. LEGS: No edema. no swelling PSYCHIATRY: Alert and oriented -3, mood and affect normal. NERVOUS SYSTEM: Cranial N 2-12 grossly normal. Moves all 4 limbs. Diffuse weakness No focal deficits. Skin: no rash Joints: No active swelling. No inflammation. - Labs CBC & Chem 7: 05/24/17 05:41 05/28/17 07:02 Labs: Abnormal Lab Results - Last 24 Hours (Table) 05/28/17 05/28/17 05/28/17 Range/Units 07:02 11:33 17:20 Chloride 97 L (98-107) mmol/L Carbon Dioxide 32 H (22-30) mmol/L BUN 28 H (7-17) mg/dL POC Glucose (mg/dL) 146 H 150 H (75-99) mg/dL 05/28/17 Range/Units 19:56 Chloride (98-107) mmol/L Carbon Dioxide (22-30) mmol/L BUN (7-17) mg/dL POC Glucose (mg/dL) 200 H (75-99) mg/dL Assessment and Plan Assessment: 1. Acute exacerbation COPD with acute purulent tracheobronchitis, acute on chronic hypoxic, hypercapnic respiratory failure 2. Chest pain with troponin 0.77, possible acute non-STEMI,TYPE II, not a candidate for aggressive cardiac workup given respiratory status 3. Hyponatremia 4. Ongoing nicotine dependence 5. Advanced end-stage COPD 6. Chronic hypoxic respiratory failure on home O2, 5 L 7. Moderate protein calorie malnutrition, BMI 16.4 Plan: Continue on current medication regime ,monitoring and symptomatic treatment. Continue on Zosyn ,nebulized bronchodilators, steroids, BiPAP. Steroid tapering in progress, converted to oral prednisone. Patient requesting to go home on BiPAP with son. Discharge planning in progress, for today, once case management secures BiPAP/ face mask. Prognosis poor given multiple complex medical issues. Time with Patient: Greater than 30
[2017-05-29] MEDS: PIPERACILLIN-TAZOBACTAM 3.375 GM in DEXTROSE/WATER 1 50ML.BAG IVPB SCH ×2 (04:04→12:59)
[2017-05-29] MEDS: FORMOTEROL FUMARATE 20 MCG/2 ML NEBU INHALATION SCH (07:54)
[2017-05-29] MEDS: BUDESONIDE 1 MG/2 ML NEBU INHALATION SCH (07:54)
[2017-05-29] MEDS: IPRATROPIUM-ALBUTEROL 3 ML NEB INHALATION SCH ×2 (07:54→11:32)
[2017-05-29 07:58] LABS: Anion Gap 8 mmol/L; Blood Urea Nitrogen 31 mg/dL (7-17); Calcium 8.9 mg/dL (8.4-10.2); Carbon Dioxide 32 mmol/L (22-30); Chloride 98 mmol/L (98-107); Glucose 91 mg/dL (74-99); Potassium 4.1 mmol/L (3.5-5.1); Sodium 138 mmol/L (137-145)
[2017-05-29] MEDS: PANTOPRAZOLE 40 MG TABLET PO SCH (08:00)
[2017-05-29] MEDS: predniSONE 10 MG TAB PO SCH (08:01)
[2017-05-29] MEDS: ASPIRIN 81 MG PO SCH (08:01)
[2017-05-29] MEDS: THEOPHYLLINE 24 HOUR 300 MG CAP.ER.24H PO SCH (08:01)
[2017-05-29] MEDS: INSULIN ASPART 100 UNIT/ML 1 ML 10 ML VIAL SQ SCH ×2 (08:02→12:59)
[2017-05-29] MEDS: ISOSORBIDE MONONITRATE ER 15 MG TAB PO SCH (08:03)
[2017-05-29] MEDS: METOPROLOL TARTRATE 12.5 MG TAB PO SCH (08:03)
[2017-05-29] MEDS: amLODIPine 2.5 MG TAB PO SCH (08:04)
[2017-05-29 08:20] LABS: Glucose,Whole Blood 117 mg/dL (75-99)
[2017-05-29 09:06] VITALS: BP 183/81; RESP 20
--- NOTE | 2017-05-29 11:25 | P.PN ---
Subjective Progress Note Date: 05/29/17 Principal diagnosis: Acute exacerbation of severe end-stage chronic obstructive pulmonary disease This is a very pleasant 67-year-old female well-known to our service. She has a history of severe COPD. Heavy smoker. She has end-stage disease. She is both oxygen and steroid dependent. She presented to the emergency room on 05/19 in the morning with complaints of increasing shortness of breath. She had severe conversational dyspnea. Her shortness of breath or been going on for about a week and getting much worse. In addition she has a bit of pain in the chest mostly on deep breathing and a nonproductive cough. No fever no chills. No nausea vomiting or diarrhea. She is currently resting comfortably in bed. She remains on the BiPAP at settings of 12/6 and 35% FiO2. She is maintaining good O2 saturations in the upper 90s. She comes off the BiPAP briefly for meals however her appetite is quite poor. She is very frail and cachectic. She is dyspneic with conversation a minimal exertion. She is slow to progress. She is afebrile. No leukocytosis. Bicarb 35. The patient is seen again today 05/24/2017 in follow-up on the selective care unit. She is more awake and alert today as compared to yesterday. She is still however quite BiPAP dependent. Still 12/6 at 35% FiO2 and maintaining good O2 saturations in the upper 90s. She has been afebrile. Hemodynamically stable. No leukocytosis. Hemoglobin stable. Creatinine 1.50. Bicarb 37. She was off for approximately 15 minutes this morning for breakfast. Her appetite is slightly better but still minimal intake. On 05/25/2017 patient seen again in follow-up. She is on the fullface BiPAP mask, BiPAP support is at 12/6, FiO2 of 35%. She is able to come off the BiPAP intermittently to eat meals. Patient developed breakdown on the bridge of her nose due to BiPAP mask that she wore previously that rested on the bridge of her nose. The areas covered with a bandage. Patient's lung sounds are very diminished, no rhonchi or wheezes noted. Patient appears to be fairly comfortable on BiPAP. She denies any acute distress. No new labs or chest x- rays today. has been afebrile. Reevaluated today on 05/26/2017, patient feels much better as long as she is using the BiPAP mask. Her FiO2 is low, patient is pleased with the fullface mask. Less cough and less wheezing less shortness of breath. Patient is wanting to go home, and she feels better than she has ever felt. Patient does not want to go to a rehab facility, she lives apparently with her son. Reevaluated today on 05/27/2017, patient is still urging to be discharged home. Patient is feeling better, she tells me today that she has all the set up at home including BiPAP. And she has oxygen at home. I cleared her for discharge yesterday, and she'll be cleared for discharge again today. Reevaluated today on 05/28/2017, still urging to go home, remains on BiPAP intermittently, doing well overall, patient will do well as long as she continues to use the BiPAP as needed at home. Cleared again for discharge, and I believe the plans are being made to discharge the patient home tomorrow. On 05/29/2017 patient is reevaluated. She remains on BiPAP support most of the time, was off the BiPAP for brief periods of time for meals. Becomes dyspneic with normal conversation, becomes very limited in terms of activity tolerance. Lung sounds are positive for end expiratory wheezes, air entry noted bilaterally on today's exam. She remains afebrile. Vital signs are stable. Today's lab work shows sodium of 138, potassium is 4.1, carbon dioxide is 32, BUN is 31, creatinine 0.69. No new chest x-rays from today. Patient is requesting to go home, she does have Trilogy home vent at home which she wears with 5 L of oxygen. Objective - Vital Signs Vital signs: Vital Signs Temp 97.6 F 05/28/17 23:00 Pulse 100 05/29/17 08:27 Resp 20 05/29/17 07:00 BP 183/81 05/29/17 07:00 Pulse Ox 98 05/29/17 07:00 Intake & Output 05/28/17 05/29/17 05/29/17 18:59 06:59 18:59 Intake Total 240 360 Output Total 320 320 Balance 240 40 -320 Weight 33.5 kg 33.5 kg Intake: Oral 240 360 Output: Urine 320 320 Other: Voiding Method Bedside Commode Bedside Commode # Voids 2 2 2 - Exam GENERAL EXAM: Very frail, cachectic. Appears older than her stated age. Alert , comfortable in no apparent distress. On BiPAP support with the full face mask HEAD: Normocephalic. EYES: Normal reaction of pupils, equal size. NOSE: Clear with pink turbinates. THROAT: No erythema or exudates. NECK: No masses, no JVD. CHEST: No chest wall deformity. LUNGS: Equal air entry with expiratory wheezing, but no rhonchi or rales. Better air entry noted bilaterally on today's exam. CVS: S1 and S2 normal with no audible murmur, regular rhythm. ABDOMEN: No hepatosplenomegaly, normal bowel sounds, no guarding or rigidity. SPINE: Kyphoscoliosis SKIN: No rashes CENTRAL NERVOUS SYSTEM: No focal deficits, tone is normal in all 4 extremities. EXTREMITIES: There is no peripheral edema. No clubbing, no cyanosis. Peripheral pulses are intact. - Labs CBC & Chem 7: 05/24/17 05:41 05/29/17 07:12 Labs: Abnormal Lab Results - Last 24 Hours (Table) 05/28/17 05/28/17 05/28/17 Range/Units 11:33 17:20 19:56 Carbon Dioxide (22-30) mmol/L BUN (7-17) mg/dL POC Glucose (mg/dL) 146 H 150 H 200 H (75-99) mg/dL 05/29/17 05/29/17 Range/Units 07:12 07:37 Carbon Dioxide 32 H (22-30) mmol/L BUN 31 H (7-17) mg/dL POC Glucose (mg/dL) 117 H (75-99) mg/dL Assessment and Plan Plan: Assessment: Acute on chronic hypoxemic respiratory failure secondary to COPD exacerbation History of severe end-stage oxygen and steroid dependent COPD with multiple hospital admissions. Chronic and ongoing tobacco dependence. Non-ST segment elevation myocardial infarction. Hypertension Hyperlipidemia Osteoarthritis History of pneumonia History of sleep apnea syndrome. History of skin cancer Gastroesophageal reflux disease Poor overall functional performance based on the above-mentioned comorbidities Plan Patient is stable for discharge home today, she has a Trilogy home vent at home. She was instructed to use her home vent at her home settings at bedtime and on as-needed basis during the day. She will need follow-up appointment with Dr. Carrero in the office in one week I performed a history & physical examination of the patient and discussed their management with my nurse practitioner, Alexus Rollins. I reviewed the nurse practitioner's note and agree with the documented findings and plan of care. Lung sounds are positive for expiratory wheezing bilaterally. The findings and the impression was discussed with the patient. I attest to the documentation by the nurse practitioner. Time with Patient: Less than 30
[2017-05-29 11:49] VITALS: PULSE 108
--- NOTE | 2017-05-29 11:53 | P.DS ---
Providers Date of admission: 05/19/17 06:13 Attending physician: Amelia Lujan Consults: 05/19/17 06:10 Consult Physician Routine Consulting Provider: Kamran Carrero Consult Reason/Comments: COPD Exacerbation Do you want consulting provider notified?: Yes 05/19/17 12:45 Consult Physician Routine Consulting Provider: Shi Ventura Consult Reason/Comments: cp Do you want consulting provider notified?: Yes Primary care physician: Chantal Acveedo Hospital Course: 67-year-old female admitted with acute on chronic hypoxic and hypercapnic respiratory failure in a patient with end-stage COPD, ongoing nicotine dependence and multiple other medical issues. Maintained on BiPAP with slow improvement. Hypertensive, home med Norvasc resumed. Denies chest pain, palpitations. 05/23/2017. Remains 35% Fio2 BiPAP dependent. Bicarb 35, maintaining O2 sats in the high 90s. Expresses she is hungry; minimal intake as she is only able to tolerate a few minutes on high flow nasal cannula. Dyspneic with minimal exertion. Chest pain, palpitations. Afebrile. 05/24/17 remains on BiPAP dependent, but able to tolerate high flow nasal cannula during lunchtime about 10-15 minutes, consuming 50%. Hypokalemic. Afebrile. Denies chest pain, palpitations. 05/25/17 no overnight events.remains BiPAP dependent, minimal intake on high flow nasal cannula. Afebrile. 05/26/17 maintained on BiPAP with full facemask, wheezing improving. Denies chest pain, palpitations. 05/27/2017. Patient still on BiPAP with full facemask. Bilateral air entry is much improved now. Clinically improving otherwise. Denied any fever or chills no commerce of chest pain or worsening shortness of breath. Anticipate discharge in next 1-2 days. Pulmonary on board 05/28/2017 Patient is maintained on BiPAP with full mask. Otherwise no acute overnight issues. Anticipate discharged tomorrow. Otherwise no fever no chills no chest pain no worsening shortness of breath. No cough or sputum production. No other acute overnight issues. 05/29/2017 Patient respiratory status is at her baseline patient does have a home vent patient is cleared for discharge from pulmonology perspective patient will be discharged on weaning dose of steroids and levofloxacin for bronchitis GENERAL: She and is not in respiratory distress alert today wearing BiPAP HEENT: Conjunctivae normal. eyes normal. NECK: No JVD. No thyroid enlargement. No LNs CARDIOVASCULAR: S1, S2 muffled. No murmur RESPIRATION: Kyphoscoliosis. Breath sounds diminished in the bases. Scattered rhonchi, fine crackles scattered. No wheezing noted ABDOMEN: Soft, nontender . No guarding. no masses palpable. Bowel sounds heard. LEGS: No edema. no swelling PSYCHIATRY: Alert and oriented -3, mood and affect normal. NERVOUS SYSTEM: Cranial N 2-12 grossly normal. Moves all 4 limbs. Diffuse weakness No focal deficits. Skin: no rash Joints: No active swelling. No inflammation. 1. Acute exacerbation COPD with acute purulent tracheobronchitis, acute on chronic hypoxic, hypercapnic respiratory failure 2. Chest pain with troponin 0.77, possible acute non-STEMI,TYPE II, not a candidate for aggressive cardiac workup given respiratory status 3. Hyponatremia 4. Ongoing nicotine dependence 5. Advanced end-stage COPD 6. Chronic hypoxic respiratory failure on home O2, 5 L 7. Moderate protein calorie malnutrition, BMI 16.4 Patient Condition at Discharge: Poor Plan - Discharge Summary Discharge Rx Participant: No New Discharge Prescriptions: New Levofloxacin [Levaquin] 500 mg PO DAILY #7 tab predniSONE 10 mg PO DAILY #30 tab No Action HYDROcodone/APAP 7.5-325MG [[place] 7.5-325] 1 tab PO Q8H PRN PRN Reason: Pain Budesonide-Formot 160-4.5 Mcg [Symbicort 160-4.5 Mcg Inhaler] 2 puff INHALATION RT-BID #1 inh amLODIPine [Norvasc] 2.5 mg PO DAILY LORazepam [Ativan] 1 mg PO HS Omeprazole [PriLOSEC] 20 mg PO BID Discharge Medication List HYDROcodone/APAP 7.5-325MG [[place] 7.5-325] 1 tab PO Q8H PRN 06/12/16 [History] Budesonide-Formot 160-4.5 Mcg [Symbicort 160-4.5 Mcg Inhaler] 2 puff INHALATION RT-BID #1 inh 02/23/17 [Rx] LORazepam [Ativan] 1 mg PO HS 04/29/17 [History] amLODIPine [Norvasc] 2.5 mg PO DAILY 04/29/17 [History] Omeprazole [PriLOSEC] 20 mg PO BID 05/19/17 [History] Levofloxacin [Levaquin] 500 mg PO DAILY #7 tab 05/29/17 [Rx] predniSONE 10 mg PO DAILY #30 tab 05/29/17 [Rx] Follow up Appointment(s)/Referral(s): Kristina Cornejo MD [Primary Care Provider] - 06/02/17 10:10 am [facility] Visiting Nurse, [NON-STAFF] - Discharge Disposition: HOME WITH HOME HEALTH SERVICES
[2017-05-29 12:00] LABS: Glucose,Whole Blood 168 mg/dL (75-99)
== END 2017-05-29 14:55 | disposition home health service (06) | DRG 189 ==
LOC: EC 04:28 → 6SEL 06:13 → 5MS5E 05-24 18:58
PROVIDERS: ADMIT Hospitalist; ATTEND Hospitalist
PROC: 5A09557 Assistance with Respiratory Ventilation, Greater than 96 Consecutive Hours, Continuous Positive Airway Pressure (ICD-10-PCS; principal; 2017-05-19)
DX: J96.21 Acute and chronic respiratory failure with hypoxia (principal); I21.A1 Myocardial infarction type 2; E44.0 Moderate protein-calorie malnutrition; E87.1 Hypo-osmolality and hyponatremia; J44.1 Chronic obstructive pulmonary disease with (acute) exacerbation; J44.0 Chronic obstructive pulmonary disease with (acute) lower respiratory infection; Z68.1 Body mass index [BMI] 19.9 or less, adult; J96.22 Acute and chronic respiratory failure with hypercapnia; E78.5 Hyperlipidemia, unspecified; E87.6 Hypokalemia; F17.200 Nicotine dependence, unspecified, uncomplicated; F41.9 Anxiety disorder, unspecified; G47.30 Sleep apnea, unspecified; H40.9 Unspecified glaucoma; I10 Essential (primary) hypertension; I25.2 Old myocardial infarction; I27.20 Pulmonary hypertension, unspecified; K21.9 Gastro-esophageal reflux disease without esophagitis; M19.90 Unspecified osteoarthritis, unspecified site; J20.9 Acute bronchitis, unspecified; D72.829 Elevated white blood cell count, unspecified; Z79.51 Long term (current) use of inhaled steroids; Z79.899 Other long term (current) drug therapy; Z99.81 Dependence on supplemental oxygen; Z90.710 Acquired absence of both cervix and uterus; Z87.11 Personal history of peptic ulcer disease; Z87.01 Personal history of pneumonia (recurrent); Z85.828 Personal history of other malignant neoplasm of skin; Z66 Do not resuscitate; Z98.1 Arthrodesis status; Z90.49 Acquired absence of other specified parts of digestive tract; Z82.49 Family history of ischemic heart disease and other diseases of the circulatory system
CPT/HCPCS: 36415; 71045; 80048; 80053; 81001; 82040; 82550; 82553; 83036; 83735; 83880; 84132; 84484; 85025; 85379; 85610; 85730; 87502; 93005; 93306; 94640; 94660; 94760; 96374; 99285

== ENCOUNTER 2017-07-08 05:48 | Inpatient (IN) | payer MEDICARE, OTHER ==
[2017-07-08] MEDS ORDERED: LORazepam 2 MG/ML INJ IV STA (06:11)
[2017-07-08 06:31] LABS: HCT 40.6 % (34.0-46.0); HGB 13.5 gm/dL (11.4-16.0); MCHC 33.3 g/dL (31.0-37.0); Mean Platelet Volume 7.3; Platelet Count 423 k/uL (150-450); RBC 4.66 m/uL (3.80-5.40); RDW 15.2 % (11.5-15.5); WBC 22.8 k/uL (3.8-10.6)
[2017-07-08 06:33] LABS: Albumin 3.7 g/dL (3.5-5.0); Anion Gap 12 mmol/L; Calcium 9.2 mg/dL (8.4-10.2); Carbon Dioxide 24 mmol/L (22-30); Chloride 97 mmol/L (98-107); Glucose 158 mg/dL (74-99); Sodium 133 mmol/L (137-145); Total Bilirubin 0.4 mg/dL (0.2-1.3); Total Protein 6.6 g/dL (6.3-8.2)
[2017-07-08 06:36] LABS: D-Dimer 0.83 mg/L FEU (<0.60); INR 0.9 (<1.2); Partial Thromboplastin Time 22.3 sec (22.0-30.0); Prothrombin Time 9.4 sec (9.0-12.0)
[2017-07-08 06:37] LABS: ALT 29 U/L (9-52); AST 24 U/L (14-36); Alkaline Phosphatase 115 U/L (38-126); Blood Urea Nitrogen 16 mg/dL (7-17)
[2017-07-08 06:42] LABS: MCV 87.2 fL (80.0-100.0)
--- NOTE | 2017-07-08 06:43 | XR ---
EXAM: XR Chest, 1 View CLINICAL HISTORY: Dyspnea TECHNIQUE: Frontal view of the chest. COMPARISON: 05/15/2017. FINDINGS: Lungs: Findings suggestive of COPD with chronic interstitial lung changes and evidence of fibrosis involving both lung apices again seen, essentially unchanged. Stable 0.5 cm nodule overlying the mid right lung zone. Pleural space: No definitive pleural effusions. No pneumothorax. Heart: Unremarkable. No cardiomegaly. Mediastinum: Unremarkable. Bones/joints: Postoperative changes again seen involving the lower cervical spine. Osseous structures are unchanged. IMPRESSION: 1. Findings suggestive of COPD with chronic interstitial lung changes and evidence of fibrosis involving both lung apices again seen, essentially unchanged. 2. Stable 0.5 cm nodule overlying the mid right lung zone. Attention on follow-up recommended.
--- NOTE | 2017-07-08 06:45 | ED ---
SOB HPI - General Chief Complaint: Shortness of Breath Stated Complaint: JONE Time Seen by Provider: 07/08/17 05:50 Source: EMS Mode of arrival: EMS Limitations: physical limitation (Severe dyspnea) - History of Present Illness Initial Comments: This patient is a 67-year-old woman who presents with severe shortness of breath. History is somewhat limited as she is very dyspneic. She is been getting worse over the past couple of days. She tried using home albuterol without much relief. Then phoned EMS. She denies chest pain. Denies productive cough. No fever. MD Complaint: shortness of breath, cough -: days(s) Consistency: constant Improves With: nothing Worsens With: nothing Known History Of: COPD Associated Symptoms: denies other symptoms Treatments Prior to Arrival: oxygen, bronchodilator - Related Data Home Oxygen Therapy: Yes Home Medications Medication Instructions Recorded Confirmed HYDROcodone/APAP 7.5-325MG [[place] 1 tab PO Q8H PRN 06/12/16 05/19/17 7.5-325] LORazepam [Ativan] 1 mg PO HS 04/29/17 05/19/17 amLODIPine [Norvasc] 2.5 mg PO DAILY 04/29/17 05/19/17 Omeprazole [PriLOSEC] 20 mg PO BID 05/19/17 05/19/17 Previous Rx's Medication Instructions Recorded Budesonide-Formot 160-4.5 Mcg 2 puff INHALATION RT-BID #1 inh 02/23/17 [Symbicort 160-4.5 Mcg Inhaler] Levofloxacin [Levaquin] 500 mg PO DAILY #7 tab 05/29/17 predniSONE 10 mg PO DAILY #30 tab 05/29/17 Allergies Allergy/AdvReac Type Severity Reaction Status Date / Time No Known Allergies Allergy Verified 07/08/17 05:55 Review of Systems ROS Statement: Those systems with pertinent positive or pertinent negative responses have been documented in the HPI. ROS Other: All systems not noted in ROS Statement are negative. Limitations: ROS unobtainable due to patients medical condition Constitutional: Denies: fever Respiratory: Reports: cough, dyspnea, wheezes. Denies: hemoptysis Cardiovascular: Denies: chest pain, orthopnea, edema, syncope Gastrointestinal: Denies: abdominal pain, vomiting, diarrhea Genitourinary: Denies: dysuria, hematuria Musculoskeletal: Denies: back pain Skin: Denies: rash Neurological: Denies: headache Psychiatric: Reports: anxiety Past Medical History Past Medical History: Asthma, Cancer, COPD, Eye Disorder, GERD/Reflux, Hyperlipidemia, Hypertension, Myocardial Infarction (CO), Osteoarthritis (OA), Pneumonia, Respiratory Disorder, Sleep Apnea/CPAP/BIPAP Additional Past Medical History / Comment(s): Advanced oxygen-dependent COPD with chronic hypoxic respiratory failure and with multiple hospitalization for COPD exacerbations, chronic hypoxic respiratory failure with home O2 at 5L/NC, born with a single left kidney, previous CO, PUD, bilateral glaucoma, skin cancer, previous history of bowel obstruction, 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 Last Myocardial Infarction Date:: 2011? History of Any Multi-Drug Resistant Organisms: None Reported Past Surgical History: Appendectomy, Back Surgery, Bowel Resection, Section, Hysterectomy, Orthopedic Surgery Additional Past Surgical History / Comment(s): 10/28/15 anterior cervical decompression fusion C3-4,C4-5,C5-6 with NIM cord monitoring, BACK SURGERY lami / FUSION/discectomy, manolo CATARACT SURGERY, LASER EYE SURGERY FOR GLAUCOMA., RIGHT KNEE SURGERY(fx kneecap), cervical surgery and has bars and screws in the neck, bronchoscopy, EGD Past Anesthesia/Blood Transfusion Reactions: No Reported Reaction Past Psychological History: Anxiety Smoking Status: Former smoker Past Alcohol Use History: Unable to Obtain Past Drug Use History: Unable to Obtain - Past Family History Mother Family Medical History: Myocardial Infarction (CO) Additional Family Medical History / Comment(s): Mother had a CO in her 50's Father Family Medical History: No Reported History Additional Family Medical History / Comment(s): FORM OLD AGE Brother(s) Family Medical History: Asthma, COPD Sister(s) Family Medical History: Asthma, COPD General Exam Limitations: no limitations General appearance: alert, in distress Head exam: Present: atraumatic, normocephalic Eye exam: Present: normal appearance. Absent: scleral icterus, conjunctival injection ENT exam: Present: mucous membranes dry Neck exam: Present: normal inspection Respiratory exam: Present: respiratory distress, wheezes, accessory muscle use, decreased breath sounds, prolonged expiratory. Absent: normal lung sounds bilaterally, rales, rhonchi, stridor Cardiovascular Exam: Present: normal rhythm, tachycardia, normal heart sounds. Absent: systolic murmur, diastolic murmur, rubs, gallop GI/Abdominal exam: Present: soft. Absent: distended, tenderness, guarding, rebound, mass Extremities exam: Present: normal inspection, normal capillary refill. Absent: pedal edema, calf tenderness Back exam: Present: normal inspection. Absent: CVA tenderness (R), CVA tenderness (L) Neurological exam: Present: alert Skin exam: Present: warm, dry, intact, normal color. Absent: rash Course Vital Signs 07/08/17 07/08/17 05:49 06:16 Temperature 97.6 F Pulse Rate 133 H 144 H Respiratory 38 H 30 H Rate Blood Pressure 175/96 O2 Sat by Pulse 100 100 Oximetry Medical Decision Making - Lab Data Result diagrams: 07/08/17 06:13 07/08/17 06:13 Lab Results 07/08/17 07/08/17 07/08/17 Range/Units 06:13 06:13 06:13 WBC 22.8 H (3.8-10.6) k/uL RBC 4.66 (3.80-5.40) m/uL Hgb 13.5 (11.4-16.0) gm/dL Hct 40.6 (34.0-46.0) % MCV 87.2 D (80.0-100.0) fL MCH 29.0 (25.0-35.0) pg MCHC 33.3 (31.0-37.0) g/dL RDW 15.2 (11.5-15.5) % Plt Count 423 (150-450) k/uL PT 9.4 (9.0-12.0) sec INR 0.9 (<1.2) APTT 22.3 (22.0-30.0) sec D-Dimer 0.83 H (<0.60) mg/L FEU Sodium 133 L (137-145) mmol/L Potassium 5.0 (3.5-5.1) mmol/L Chloride 97 L (98-107) mmol/L Carbon Dioxide 24 (22-30) mmol/L Anion Gap 12 mmol/L BUN 16 (7-17) mg/dL Creatinine 0.55 (0.52-1.04) mg/dL Est GFR (CKD-EPI)AfAm >90 (>60 ml/min/1.73 sqM) Est GFR (CKD-EPI)NonAf >90 (>60 ml/min/1.73 sqM) Glucose 158 H (74-99) mg/dL Calcium 9.2 (8.4-10.2) mg/dL Total Bilirubin 0.4 (0.2-1.3) mg/dL AST 24 (14-36) U/L ALT 29 (9-52) U/L Alkaline Phosphatase 115 (38-126) U/L Total Protein 6.6 (6.3-8.2) g/dL Albumin 3.7 (3.5-5.0) g/dL - EKG Data -: EKG Interpreted by Nd EKG shows normal: sinus rhythm, axis (Normal), intervals (Normal) Rate: tachycardia (Rate 145 bpm) Interpretation: LVH, other (Old septal infarct.) Disposition Clinical Impression: COPD exacerbation Disposition: ADMITTED IP TO THIS [facility] Condition: Serious Referrals: Kristina Cornejo MD [Primary Care Provider] - 1-2 days
[2017-07-08 06:59] LABS: Troponin I 0.033 ng/mL (0.000-0.034)
[2017-07-08 07:04] LABS: Creatine Kinase MB 3.3 ng/mL (0.0-2.4)
[2017-07-08 07:27] LABS: Eosinophils # (M) 0.23 k/uL (0-0.7); Lymphocytes # (M) 4.33 k/uL (1.0-4.8); Metamyelocytes # (M) 0.23 k/uL (0); Metamyelocytes % 1 %; Monocytes # (M) 1.82 k/uL (0-1.0); Neutrophils # (M) 16.19 k/uL (1.3-7.7); Neutrophils % (M) 71 %; Nucleated Red Blood Cells 0 /100 WBC (0-0); Total Cells Counted 100
[2017-07-08] MEDS ORDERED: BUDESONIDE 0.5 MG/2 ML NEBU INHALATION SCH (08:00)
[2017-07-08] MEDS ORDERED: SYMBICORT 160-4.5 MCG INHALER INHALATION SCH (08:00)
[2017-07-08] MEDS: ALBUTEROL NEBULIZED 2.5 MG/3 ML INHALATION SCH ×4 (08:45→20:32)
[2017-07-08] MEDS ORDERED: LEVOFLOXACIN 500 MG TAB PO SCH (09:00)
[2017-07-08 09:07] LABS: VBG PH 7.35 (7.31-7.41)
[2017-07-08 09:30] LABS: ABG Base Excess -3.1 mmol/L; ABG HCO3 25 mmol/L (21-25); ABG PCO2 61 mmHg (35-45); ABG PH 7.22 (7.35-7.45); ABG PO2 209 mmHg (83-108); ABG TCO2 27 mmol/L (19-24)
[2017-07-08] MEDS: SODIUM CHLORIDE 0.9% 1,000 ML IV SCH (09:40)
[2017-07-08] MEDS: LEVOFLOXACIN 500MG-D5W PMX 500 MG in DEXTROSE/WATER 1 100ML.BAG IVPB SCH (11:17)
[2017-07-08] MEDS: IPRATROPIUM-ALBUTEROL 3 ML NEB INHALATION PRN ×3 (11:48→19:46)
[2017-07-08] MEDS: PANTOPRAZOLE 40 MG TABLET PO SCH ×2 (12:01→18:48)
[2017-07-08] MEDS: amLODIPine 2.5 MG TAB PO SCH (12:01)
--- NOTE | 2017-07-08 12:09 | P.CNPUL ---
History of Present Illness Consult date: 07/08/17 Reason for consult: dyspnea, COPD History of present illness: A 67-year-old female patient with advanced COPD and chronic hypoxic respiratory failure and frequent hospitalizations in the past for the same. The patient came in to the emergency department having significant shortness of breath at the [place] past few days. She was very much dyspneic and her breath sounds are markedly diminished in lung bases bilaterally. She denied having any chest pain. She denied having any productive cough. No fever or chills. She was immediately placed on BiPAP at a pressure of 10 over 4 cm of water. She was sent to telemetry and I saw this patient on moved to the intensive care unit. She is lethargic and she is arousable. She is having no problems tolerating the BiPAP however she is still short of breath even while being on the BiPAP mask. Her current FiO2 is a 50%. The blood gases that was done while on the BiPAP showed a pH of 7.22 with a pCO2 of 61 and pO2 of 29 and FiO2 will be gradually weaned down. White cell count is at 22.8. Coagulation profile is within normal limits. Renal function stable. Chest x-ray shows COPD with chronic interstitial changes in the lungs bilaterally with a stable 0.5 CM nodule in the right midlung. The patient's troponin is not elevated. Lactic level is at 1. Noted the patient tells me that she has not smoked cigarettes over the past 4 months. Review of Systems 12 point review of system was done and the positive findings are almost above history of present illness. The patient has poor exercise tolerance. The patient has poor nutritional status. The patient continues to lose weight. She has shortness of breath at all times. No angina and the pain that she is experiencing essentially skeletal in nature. No change in mental status. No nausea. No vomiting. No diarrhea. No abdominal pain. No dysuria frequency or urgency. No falls. No open wounds or sores or ulceration. The patient is currently wearing a BiPAP and a detailed review of systems cannot be obtained from her. She is however very excited to tell me that she has quit smoking. No falls. No injuries. 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 Last Myocardial Infarction Date:: 2011? History of Any Multi-Drug Resistant Organisms: None Reported Past Surgical History: Appendectomy, Back Surgery, Bowel Resection, Section, Hysterectomy, Orthopedic Surgery Additional Past Surgical History / Comment(s): 10/28/15 anterior cervical decompression fusion C3-4,C4-5,C5-6 with NIM cord monitoring, BACK SURGERY lami / FUSION/discectomy, manolo CATARACT SURGERY, LASER EYE SURGERY FOR GLAUCOMA., RIGHT KNEE SURGERY(fx kneecap), cervical surgery and has bars and screws in the neck, bronchoscopy, EGD Past Anesthesia/Blood Transfusion Reactions: No Reported Reaction Past Psychological History: Anxiety Smoking Status: Former smoker Past Alcohol Use History: Unable to Obtain Past Drug Use History: Unable to Obtain - Past Family History Mother Family Medical History: Myocardial Infarction (NM) Additional Family Medical History / Comment(s): Mother had a NM in her 50's Father Family Medical History: No Reported History Additional Family Medical History / Comment(s): FORM OLD AGE Brother(s) Family Medical History: Asthma, COPD Sister(s) Family Medical History: Asthma, COPD Medications and Allergies Home Medications Medication Instructions Recorded Confirmed Type HYDROcodone/APAP 7.5-325MG [[place] 1 tab PO Q8H PRN 06/12/16 05/19/17 History 7.5-325] Budesonide-Formot 160-4.5 Mcg 2 puff INHALATION RT-BID #1 inh 02/23/17 05/19/17 Rx [Symbicort 160-4.5 Mcg Inhaler] LORazepam [Ativan] 1 mg PO HS 04/29/17 05/19/17 History amLODIPine [Norvasc] 2.5 mg PO DAILY 04/29/17 05/19/17 History Omeprazole [PriLOSEC] 20 mg PO BID 05/19/17 05/19/17 History Levofloxacin [Levaquin] 500 mg PO DAILY #7 tab 05/29/17 Rx predniSONE 10 mg PO DAILY #30 tab 05/29/17 Rx Allergies Allergy/AdvReac Type Severity Reaction Status Date / Time No Known Allergies Allergy Verified 07/08/17 05:55 Physical Exam Vitals: Vital Signs Temp Pulse Pulse Resp BP BP Pulse Ox 07/08/17 11:44 118 H 26 H 163/94 98 07/08/17 08:00 97.1 F L 130 H 28 H 130/69 100 07/08/17 06:16 144 H 30 H 175/96 100 07/08/17 05:49 97.6 F 133 H 38 H 100 Intake and Output 07/07/17 07/08/17 07/08/17 22:59 06:59 14:59 Other: Weight 49.895 kg Thin, frail, cachectic, currently on a BiPAP mask at a pressure of 10/5 cm of water. The patient shows some increased shortness of breath even while on the BiPAP..Head exam was generally normal. There was no scleral icterus or corneal arcus. Mucous membranes were moist.Neck was supple and without jugular venous distension, thyromegaly, or carotid bruits. Carotids were easily palpable bilaterally. There was no adenopathy. The patient is edentulous. Lung sounds are diminished bilaterally along with diffuse extremity wheezes throughout the lung his bilaterally.Cardiac exam revealed the PMI to be normally situated and sized. The rhythm was regular and no extrasystoles were noted during several minutes of auscultation. The first and second heart sounds were normal and physiologic splitting of the second heart sound was noted. There were no murmurs , rubs, clicks, or gallops.Abdominal exam revealed normal bowel sounds. The abdomen was soft, non-tender, and without masses, organomegaly, or appreciable enlargement of the abdominal aorta.Examination of the extremities revealed easily palpable radial, femoral and pedal pulses. There was no cyanosis, clubbing or edema. Neurologically the patient is awake and alert and she is following commands and answering questions appropriately.Examination of the skin revealed no evidence of significant rashes, suspicious appearing nevi or other concerning lesions. Results - Laboratory Findings CBC and BMP: 07/08/17 06:13 07/08/17 06:13 ABG ABG pH 7.22 (7.35-7.45) L 07/08/17 09:27 ABG pCO2 61 mmHg (35-45) H 07/08/17 09:27 ABG pO2 209 mmHg (83-108) H 07/08/17 09:27 ABG O2 Saturation 99.0 % (94-97) H 07/08/17 09:27 PT/INR, D-dimer PT 9.4 sec (9.0-12.0) 07/08/17 06:13 INR 0.9 (<1.2) 07/08/17 06:13 D-Dimer 0.83 mg/L FEU (<0.60) H 07/08/17 06:13 Abnormal lab findings: Abnormal Labs 07/08/17 07/08/17 07/08/17 06:13 06:13 06:13 WBC 22.8 H Neutrophils # (Manual) 16.19 H Monocytes # (Manual) 1.82 H Metamyelocytes # (Man) 0.23 H D-Dimer ABG pH ABG pCO2 ABG pO2 ABG Total CO2 ABG O2 Saturation VBG HCO3 Sodium 133 L Chloride 97 L Glucose 158 H CK-MB (CK-2) 3.3 H* 07/08/17 07/08/17 07/08/17 06:13 08:41 09:27 WBC Neutrophils # (Manual) Monocytes # (Manual) Metamyelocytes # (Man) D-Dimer 0.83 H ABG pH 7.22 L ABG pCO2 61 H ABG pO2 209 H ABG Total CO2 27 H ABG O2 Saturation 99.0 H VBG HCO3 22 L Sodium Chloride Glucose CK-MB (CK-2) - Diagnostic Findings Chest x-ray: image reviewed Assessment and Plan Plan: Assessment 1 acute COPD exacerbation with secondary respiratory failure. The patient is acute hypoxic and hypercapnic the story failure on top of her chronic respiratory failure. Currently she is BiPAP dependent at a pressure of 10/4 cm of water, and the FiO2 will be gradually weaned down to maintain oxygen saturation above 90%. The patient is short of breath along with her COPD exacerbation. Chest x-ray shows some increased interstitial markings otherwise there is no airspace disease or pneumonias. 2 muscular skeletal chest wall pain secondary to cough 3 advanced, and end stage COPD with gold stage IV disease and chronic hypoxic history failure 4 nicotine addiction, not smoked for the past 4 months. 5 malnourishment 6 hypertension 7 hyperlipidemia 8 coronary artery disease 9 very poor performance and functional status 10 CHF and based on the most his echo cardiogram from May 2017 the patient is an ejection fraction of 45-50%. No significant pulmonary hypertension. The rest of the valvular structures were all within normal limits Plan Continue BiPAP support. Wean down the FiO2. Continue DuoNeb the blood seems on the clock. Continue IV Solu Medrol. Lasix 40 g IV push. IV to KVO. Empiric antibiotic coverage with Levaquin. Prognosis poor. CODE STATUS discussed established especially with her poor advanced baseline performance and functional status. We'll continue to follow.
[2017-07-08] MEDS ORDERED: FUROSEMIDE 10 MG/ML 4 ML VIAL IV STA (12:11)
[2017-07-08] MEDS: methylPREDNISolone SOD SUCCI 125 MG/2 ML VIAL IV SCH ×3 (12:29→23:07)
[2017-07-08 12:45] LABS: Glucose,Whole Blood 162 mg/dL (75-99)
[2017-07-08] MEDS ORDERED: LORazepam 2 MG/ML INJ IV PRN (13:17)
[2017-07-08] MEDS: OSELTAMIVIR 75 MG CAP PO SCH ×2 (14:17→20:04)
[2017-07-08 18:05] LABS: Appearance,Urine Clear (Clear); Bilirubin,Urine Negative (Negative); Blood,Urine Negative (Negative); Color,Urine Colorless; Glucose,Urine (UA) Negative (Negative); Ketones,Urine Negative (Negative); Leukocyte Esterase,Urine Negative (Negative); Nitrite,Urine Negative (Negative); Protein,Urine Negative (Negative); Specific Gravity,Urine 1.006 (1.001-1.035); Urobilinogen,Urine <2.0 mg/dL (<2.0)
[2017-07-08 18:32] LABS: Glucose,Whole Blood 101 mg/dL (75-99)
[2017-07-08] MEDS: BUDESONIDE 1 MG/2 ML NEBU INHALATION SCH (19:46)
[2017-07-08] MEDS: FORMOTEROL FUMARATE 20 MCG/2 ML NEBU INHALATION SCH (19:46)
--- NOTE | 2017-07-08 19:50 | HP ---
HISTORY AND PHYSICAL CHIEF COMPLAINT: Shortness of breath and cough and hypoxia. HISTORY OF PRESENT ILLNESS: This 67-year-old woman with a past medical history of multiple medical problems including history of asthma, COPD, history of GERD, hypertension, hyperlipidemia, myocardial infarction, sleep apnea, history of chronic advanced end-stage COPD being followed by Dr. Cornejo in the outpatient setting is complaining of increased shortness and cough over the past several days. The patient is extremely dyspneic. The patient tried several doses of albuterol without much relief and the patient came to [facility] and was admitted for further evaluation and treatment. Chest x-ray did not show any acute evidence of pneumonia; however, influenza B was positive and the patient has a WBC elevated at 22.8 and the sodium is 133 and patient also had significant hypoxia at this time, showed ABG of 7.22 and the patient is transferred to ICU and admitted for further evaluation and treatment at this time. There is no history of any fever, rigors, chills. No history of headache, loss of consciousness, seizures. PAST MEDICAL HISTORY: History of asthma, COPD, GERD, hypertension, hyperlipidemia, history of myocardial infarction, advanced COPD. MEDICATIONS PRIOR TO ADMISSION: Include: 1. Motrin 400 mg t.i.d. p.r.n. 2. Losartan 100 mg p.o. daily. 3. [place] 7.5 q.8h p.r.n. 4. Lasix 20 mg p.o. daily. 5. Symbicort 160/4.5 two puffs b.i.d. 6. Norvasc 2.5 mg. 7. Ativan 0.5 mg b.i.d. ALLERGIES: None. FAMILY HISTORY: History of myocardial infarction in the family. SOCIAL HISTORY: History of occasional alcohol intake. Previous history of smoking. REVIEW OF SYSTEMS: ENT: No diminished hearing, diminished vision. CARDIOVASCULAR: As mentioned earlier. RESPIRATORY: As mentioned earlier. GI: No nausea or vomiting. : No dysuria. NERVOUS: As mentioned earlier. ALLERGY/IMMUNOLOGY: No asthma or hay fever. MUSCULOSKELETAL: As mentioned earlier. HEMATOLOGY/ONCOLOGY: No history of anemia. ENDOCRINE: No history of diabetes, hypothyroidism. CONSTITUTIONAL: As mentioned earlier. DERMATOLOGY: Negative. RHEUMATOLOGY: Negative. PSYCHIATRY: As mentioned earlier. PHYSICAL EXAMINATION: Alert, oriented x3. Pulse 104, blood pressure 102/70, respirations 20, temperature 97.8, pulse ox 100% on BiPAP. BiPAP settings are noted. HEENT: Conjunctivae normal. Oral mucosa moist. NECK: No jugular venous distention. No carotid bruits. No lymph node enlargement. CARDIOVASCULAR: S1, S2 muffled. RESPIRATORY: Breath sounds diminished in the bases. Breathing efforts are markedly increased with bilaterally scattered rhonchi and expiratory wheezing and crackles. ABDOMEN: Soft, nontender. No mass palpable. LEGS: No edema. No swelling. NERVOUS SYSTEM: Higher functions as mentioned earlier. Moves all 4 limbs. No focal motor or sensory deficits. LYMPHATIC: No lymphadenopathy in neck or axillae. SKIN: No ulcer, rash or bleeding. LABS: WBC 22, hemoglobin 13.5 and D-dimer is 0.83. ABGs: pH of 7.22. Sodium is 133. ASSESSMENT: 1. Chronic obstructive pulmonary disease acute exacerbation with acute purulent tracheobronchitis, acute hypoxic hypercarbic respiratory failure on BiPAP. 2. Acute influenza B. 3. Increased WBC. 4. History of asthma. 5. History of gastroesophageal reflux disease. 6. Hypertension. 7. Hyperlipidemia. 8. History of myocardial infarction. 9. History of degenerative joint disease. 10.History of pneumonia. 11.Sleep apnea. 12.History end-stage chronic obstructive pulmonary disease. 13.Chronic hypoxic respiratory failure. 14.History of bilateral glaucoma. 15.History of appendectomy. 16.Back surgery and degenerative joint disease. 17.History of anxiety. 18.Remote history of nicotine dependence. RECOMMENDATIONS AND DISCUSSION: In this 67-year-old woman who presented with multiple complex medical issues, we will monitor the patient closely. Continue the current medical management and symptomatic treatment. Otherwise at this time, bronchodilators, IV steroids empiric antibiotics, Tamiflu, transfer to ICU, BiPAP. Will consult Dr. Vang. DVT prophylaxis. Resume the home medications and the anxiety medications. Guarded prognosis because of multiple complex medical issues and further recommendations to follow. We will follow the patient closely with Dr. Vang. We will hold the losartan at this time because of the relatively low blood pressure. MMODL / IJN: [id number] /
[2017-07-08] MEDS: LORazepam 1 MG TAB PO SCH (20:04)
[2017-07-08 23:10] LABS: Glucose,Whole Blood 109 mg/dL (75-99)
[2017-07-08] MEDS: HYDROcodone/APAP 7.5-325MG 1 EACH TAB PO PRN (23:44)
[2017-07-09] MEDS: methylPREDNISolone SOD SUCCI 125 MG/2 ML VIAL IV SCH ×4 (05:04→23:22)
[2017-07-09 05:28] LABS: Basophils % (A) 0 %; Eosinophils % (A) 0 %; HGB 13.3 gm/dL (11.4-16.0); Lymphocytes # (A) 0.6 k/uL (1.0-4.8); Lymphocytes % (A) 5 %; MCH 29.6 pg (25.0-35.0); MCHC 35.1 g/dL (31.0-37.0); MCV 84.5 fL (80.0-100.0); Mean Platelet Volume 7.5; Monocytes # (A) 0.2 k/uL (0-1.0); Monocytes % (A) 2 %; Neutrophils % (A) 91 %; Platelet Count 307 k/uL (150-450); RDW 14.8 % (11.5-15.5)
[2017-07-09] MEDS: SODIUM CHLORIDE 0.9% 1,000 ML IV SCH (05:58)
[2017-07-09 06:14] LABS: Anion Gap 14 mmol/L; Blood Urea Nitrogen 25 mg/dL (7-17); Calcium 9.1 mg/dL (8.4-10.2); Carbon Dioxide 23 mmol/L (22-30); Chloride 99 mmol/L (98-107); Glucose 112 mg/dL (74-99); Magnesium 1.8 mg/dL (1.6-2.3); Phosphorus 4.5 mg/dL (2.5-4.5); Potassium 4.8 mmol/L (3.5-5.1); Sodium 136 mmol/L (137-145)
[2017-07-09] MEDS ORDERED: Magnesium Replacement Protocol 1 EACH MISC MISCELLANE PRN (06:27)
--- NOTE | 2017-07-09 07:35 | XR ---
EXAMINATION TYPE: XR chest 1V portable DATE OF EXAM: 07/09/2017 HISTORY: shortness of breath. REFERENCE: Previous study dated 07/08/2017. FINDINGS: The lungs are overinflated. There is a calcified granuloma in the right midlung. There is s carring in the upper lobes bilaterally. The heart is not enlarged. Blunting of both CP angles likely reflects overinflation. IMPRESSION: 1. COPD AND COARSE INTERSTITIAL FIBROSIS. 2. EVIDENCE OF OLD GRANULOMATOUS DISEASE.
[2017-07-09] MEDS: FORMOTEROL FUMARATE 20 MCG/2 ML NEBU INHALATION SCH (08:16)
[2017-07-09] MEDS: BUDESONIDE 1 MG/2 ML NEBU INHALATION SCH (08:16)
[2017-07-09] MEDS: IPRATROPIUM-ALBUTEROL 3 ML NEB INHALATION PRN ×4 (08:16→19:51)
[2017-07-09] MEDS: ALBUTEROL NEBULIZED 2.5 MG/3 ML INHALATION SCH ×4 (08:21→19:51)
[2017-07-09] MEDS: MAGNESIUM SULFATE-D5W PMX 1 GM in DEXTROSE/WATER 1 100ML.BAG IVPB SCH ×2 (08:23→12:17)
[2017-07-09] MEDS: amLODIPine 2.5 MG TAB PO SCH (08:24)
[2017-07-09] MEDS: OSELTAMIVIR 75 MG CAP PO SCH ×2 (08:24→20:18)
[2017-07-09] MEDS: PANTOPRAZOLE 40 MG TABLET PO SCH ×2 (08:24→18:05)
[2017-07-09] MEDS: LEVOFLOXACIN 500MG-D5W PMX 500 MG in DEXTROSE/WATER 1 100ML.BAG IVPB SCH (09:17)
--- NOTE | 2017-07-09 12:42 | P.PN ---
Subjective Progress Note Date: 07/09/17 A 67-year-old female patient with advanced COPD and chronic hypoxic respiratory failure and frequent hospitalizations in the past for the same. The patient came in to the emergency department having significant shortness of breath at the [place] past few days. She was very much dyspneic and her breath sounds are markedly diminished in lung bases bilaterally. She denied having any chest pain. She denied having any productive cough. No fever or chills. She was immediately placed on BiPAP at a pressure of 10 over 4 cm of water. She was sent to telemetry and I saw this patient on moved to the intensive care unit. She is lethargic and she is arousable. She is having no problems tolerating the BiPAP however she is still short of breath even while being on the BiPAP mask. Her current FiO2 is a 50%. The blood gases that was done while on the BiPAP showed a pH of 7.22 with a pCO2 of 61 and pO2 of 29 and FiO2 will be gradually weaned down. White cell count is at 22.8. Coagulation profile is within normal limits. Renal function stable. Chest x-ray shows COPD with chronic interstitial changes in the lungs bilaterally with a stable 0.5 CM nodule in the right midlung. The patient's troponin is not elevated. Lactic level is at 1. Noted the patient tells me that she has not smoked cigarettes over the past 4 months. On 1017 the patient is being seen for a follow-up. The patient spent all day on a BiPAP yesterday and currently she is feeling better and she was taken off the BiPAP this morning. She is looking well. Chest is less bronchospastic and wheezy and the patient is less short of breath compared to yesterday. The chest x-ray showing hyperinflation and chronic interstitial changes along this bilaterally. No cough or sputum production. No chest pain. Lactic acid level was down to 1. As mentioned earlier the patient has not smoked for almost 4 months. She is extremely cachectic and emaciated with BMI of 13.9. White cell count is not elevated at 11. Rest of the electrolytes are all within normal limits. Objective - Vital Signs Vital signs: Vital Signs Temp 96.3 F L 07/09/17 08:00 Pulse 110 H 07/09/17 12:04 Resp 24 07/09/17 12:00 BP 98/55 07/09/17 12:00 Pulse Ox 100 07/09/17 12:00 Intake & Output 07/08/17 07/09/17 07/09/17 18:59 06:59 18:59 Intake Total 120 260 470 Output Total 1200 1200 150 Balance -1080 -940 320 Weight 49.89 kg 32.2 kg Intake: IV 240 60 Sodium Chloride 0.9% 1, 240 60 000 ml @ 20 mls/hr IV . Q24H [facility] Rx#:[id number] Intake, IV Titration 120 20 350 Amount Levofloxacin 500Mg-D5w 150 Pmx 500 mg In Dextrose/ Water 1 100ml.bag @ 100 mls/hr IVPB Q24HR [facility] Rx# :[id number] Magnesium Sulfate-D5w Pmx 200 1 gm In Dextrose/Water 1 100ml.bag @ 100 mls/hr IVPB Q1H [facility] Rx#: [id number] Sodium Chloride 0.9% 1, 120 20 000 ml @ 20 mls/hr IV . Q24H [facility] Rx#:[id number] Oral 60 Output: Urine 1200 1200 150 Other: # Voids 0 1 - Exam Thin, frail, cachectic, currently off the BiPAP machine. The patient shows some increased shortness of breath even while on the BiPAP..Head exam was generally normal. There was no scleral icterus or corneal arcus. Mucous membranes were moist.Neck was supple and without jugular venous distension, thyromegaly, or carotid bruits. Carotids were easily palpable bilaterally. There was no adenopathy. The patient is edentulous. Lung sounds are diminished bilaterally along with diffuse extremity wheezes throughout the lung his bilaterally.Cardiac exam revealed the PMI to be normally situated and sized. The rhythm was regular and no extrasystoles were noted during several minutes of auscultation. The first and second heart sounds were normal and physiologic splitting of the second heart sound was noted. There were no murmurs , rubs, clicks, or gallops.Abdominal exam revealed normal bowel sounds. The abdomen was soft, non-tender, and without masses, organomegaly, or appreciable enlargement of the abdominal aorta.Examination of the extremities revealed easily palpable radial, femoral and pedal pulses. There was no cyanosis, clubbing or edema. Neurologically the patient is awake and alert and she is following commands and answering questions appropriately.Examination of the skin revealed no evidence of significant rashes, suspicious appearing nevi or other concerning lesions. - Labs CBC & Chem 7: 07/09/17 04:37 07/09/17 04:37 Labs: Abnormal Lab Results - Last 24 Hours (Table) 07/08/17 07/08/17 07/08/17 Range/Units 12:00 12:43 18:30 WBC (3.8-10.6) k/uL Neutrophils # (1.3-7.7) k/uL Lymphocytes # (1.0-4.8) k/uL Sodium (137-145) mmol/L BUN (7-17) mg/dL Creatinine (0.52-1.04) mg/dL Glucose (74-99) mg/dL POC Glucose (mg/dL) 162 H 101 H (75-99) mg/dL Influenza Type B (PCR) Detected H (Not Detectd) 07/08/17 07/09/17 07/09/17 Range/Units 23:09 04:37 04:37 WBC 11.0 H (3.8-10.6) k/uL Neutrophils # 10.0 H (1.3-7.7) k/uL Lymphocytes # 0.6 L (1.0-4.8) k/uL Sodium 136 L (137-145) mmol/L BUN 25 H (7-17) mg/dL Creatinine 0.50 L (0.52-1.04) mg/dL Glucose 112 H (74-99) mg/dL POC Glucose (mg/dL) 109 H (75-99) mg/dL Influenza Type B (PCR) (Not Detectd) Assessment and Plan Plan: Assessment 1 acute COPD exacerbation with secondary respiratory failure. The patient is acute hypoxic and hypercapnic the story failure on top of her chronic respiratory failure. Currently she is BiPAP dependent at a pressure of 10/4 cm of water, and the FiO2 will be gradually weaned down to maintain oxygen saturation above 90%. The patient is short of breath along with her COPD exacerbation. Chest x-ray shows some increased interstitial markings otherwise there is no airspace disease or pneumonias. On 07/09/2017, the patient is less short of breath. The patient responded nicely to the combination of bronchodilators and steroids. Last bronchus spastic and wheezy the patient will be taken off the BiPAP. Chest x-ray shows no acute abnormalities and the findings are essentially hyperinflation and chronic changes related to her underlying COPD. 2 acute influenza bronchitis, patient has influenza type B 3 advanced, and end stage COPD with gold stage IV disease and chronic hypoxic history failure 4 nicotine addiction, not smoked for the past 4 months. 5 malnourishment 6 hypertension 7 hyperlipidemia 8 coronary artery disease 9 very poor performance and functional status 10 CHF and based on the most his echo cardiogram from May 2017 the patient is an ejection fraction of 45-50%. No significant pulmonary hypertension. The rest of the valvular structures were all within normal limits Plan Wean this patient to oxygen by nasal cannula and titrated maintain a saturation above 90%. Keep the patient drop with isolation. Continue the Tamiflu. Continue the bronchodilators. Continue the systemic steroids. She opted to stop the budesonide and Perforomist and this catheter placement Symbicort which is a acceptable replacement for now. DVT prophylaxis. Kept on IV fluids to 20 mL an hour. Advance diet. We'll continue to follow. She'll be kept in ICU for another 24 hours.
[2017-07-09] MEDS: SYMBICORT 160-4.5 MCG INHALER INHALATION SCH (19:55)
[2017-07-09] MEDS: LORazepam 1 MG TAB PO SCH (20:18)
[2017-07-10] MEDS: HYDROcodone/APAP 7.5-325MG 1 EACH TAB PO PRN ×2 (04:42→15:14)
[2017-07-10 04:49] LABS: Basophils % (A) 0 %; Eosinophils % (A) 1 %; HGB 11.9 gm/dL (11.4-16.0); Lymphocytes # (A) 0.5 k/uL (1.0-4.8); Lymphocytes % (A) 7 %; MCHC 34.1 g/dL (31.0-37.0); MCV 85.2 fL (80.0-100.0); Mean Platelet Volume 6.8; Monocytes # (A) 0.2 k/uL (0-1.0); Monocytes % (A) 3 %; Neutrophils # (A) 5.9 k/uL (1.3-7.7); Neutrophils % (A) 88 %; Platelet Count 338 k/uL (150-450); RBC 4.11 m/uL (3.80-5.40); RDW 14.8 % (11.5-15.5); WBC 6.7 k/uL (3.8-10.6)
[2017-07-10 04:57] LABS: Anion Gap 8 mmol/L; Blood Urea Nitrogen 25 mg/dL (7-17); Calcium 8.9 mg/dL (8.4-10.2); Carbon Dioxide 29 mmol/L (22-30); Chloride 97 mmol/L (98-107); Glucose 139 mg/dL (74-99); Magnesium 2.1 mg/dL (1.6-2.3); Phosphorus 3.6 mg/dL (2.5-4.5); Potassium 4.7 mmol/L (3.5-5.1); Sodium 134 mmol/L (137-145)
[2017-07-10] MEDS: methylPREDNISolone SOD SUCCI 125 MG/2 ML VIAL IV SCH ×4 (04:59→23:23)
[2017-07-10] MEDS: SODIUM CHLORIDE 0.9% 1,000 ML IV SCH (07:35)
--- NOTE | 2017-07-10 08:12 | XR ---
EXAMINATION TYPE: XR chest 1V portable DATE OF EXAM: 07/10/2017 COMPARISON: 07/09/2017 HISTORY: Shortness of breath TECHNIQUE: Single frontal view of the chest is obtained. FINDINGS: Pulmonary hyperinflation and biapical lucency is redemonstrated with biapical linear densi ties likely relating to pleural-parenchymal Scarring. Right midlung calcified granulomas unchanged. Partial visualization of a cervical fusion de vice is seen with moderate degenerative changes of the thoracic spine. No new focal consolidation, pl eural effusion or pneumothorax. IMPRESSION: 1. No acute cardiopulmonary process. 2. Continued evidence of COPD and probable biapical pleural-parenchymal scarring.
[2017-07-10] MEDS: LEVOFLOXACIN 500MG-D5W PMX 500 MG in DEXTROSE/WATER 1 100ML.BAG IVPB SCH (08:26)
[2017-07-10] MEDS: amLODIPine 2.5 MG TAB PO SCH (08:26)
[2017-07-10] MEDS: OSELTAMIVIR 75 MG CAP PO SCH ×2 (08:26→20:33)
[2017-07-10] MEDS: PANTOPRAZOLE 40 MG TABLET PO SCH ×2 (08:26→17:22)
[2017-07-10] MEDS: SYMBICORT 160-4.5 MCG INHALER INHALATION SCH ×2 (08:35→20:22)
[2017-07-10] MEDS: ALBUTEROL NEBULIZED 2.5 MG/3 ML INHALATION SCH ×4 (08:35→20:22)
--- NOTE | 2017-07-10 10:30 | P.PN ---
Subjective Progress Note Date: 07/10/17 Principal diagnosis: Acute on chronic hypoxic and hypercapnic respiratory failure secondary to COPD exacerbation. A 67-year-old female patient with advanced COPD and chronic hypoxic respiratory failure and frequent hospitalizations in the past for the same. The patient came in to the emergency department having significant shortness of breath at the [place] past few days. She was very much dyspneic and her breath sounds are markedly diminished in lung bases bilaterally. She denied having any chest pain. She denied having any productive cough. No fever or chills. She was immediately placed on BiPAP at a pressure of 10 over 4 cm of water. She was sent to telemetry and I saw this patient on moved to the intensive care unit. She is lethargic and she is arousable. She is having no problems tolerating the BiPAP however she is still short of breath even while being on the BiPAP mask. Her current FiO2 is a 50%. The blood gases that was done while on the BiPAP showed a pH of 7.22 with a pCO2 of 61 and pO2 of 29 and FiO2 will be gradually weaned down. White cell count is at 22.8. Coagulation profile is within normal limits. Renal function stable. Chest x-ray shows COPD with chronic interstitial changes in the lungs bilaterally with a stable 0.5 CM nodule in the right midlung. The patient's troponin is not elevated. Lactic level is at 1. Noted the patient tells me that she has not smoked cigarettes over the past 4 months. On 1017 the patient is being seen for a follow-up. The patient spent all day on a BiPAP yesterday and currently she is feeling better and she was taken off the BiPAP this morning. She is looking well. Chest is less bronchospastic and wheezy and the patient is less short of breath compared to yesterday. The chest x-ray showing hyperinflation and chronic interstitial changes along this bilaterally. No cough or sputum production. No chest pain. Lactic acid level was down to 1. As mentioned earlier the patient has not smoked for almost 4 months. She is extremely cachectic and emaciated with BMI of 13.9. White cell count is not elevated at 11. Rest of the electrolytes are all within normal limits. On 07/10/2017, patient remains in the ICU, on BiPAP, seems to be quite comfortable , in no distress. Patient seems to be less bronchospastic today, breath sounds are diminished at the bases, no rhonchi, no wheezes, patient seems to be actually a bit more comfortable today, hence I plan to transfer the patient out of the ICU to a regular medical floor. Chest x-ray and labs were all reviewed. Objective - Vital Signs Vital signs: Vital Signs Temp 98.1 F 07/10/17 04:00 Pulse 85 07/10/17 09:00 Resp 24 07/10/17 09:00 BP 121/65 07/10/17 09:00 Pulse Ox 94 L 07/10/17 09:00 Intake & Output 07/09/17 07/10/17 07/10/17 18:59 06:59 18:59 Intake Total 790 240 20 Output Total 300 1000 Balance 490 -760 20 Weight 31.5 kg Intake: IV 180 240 20 Sodium Chloride 0.9% 1, 180 240 20 000 ml @ 20 mls/hr IV . Q24H [facility] Rx#:[id number] Intake, IV Titration 350 Amount Levofloxacin 500Mg-D5w 150 Pmx 500 mg In Dextrose/ Water 1 100ml.bag @ 100 mls/hr IVPB Q24HR [facility] Rx# :[id number] Magnesium Sulfate-D5w Pmx 200 1 gm In Dextrose/Water 1 100ml.bag @ 100 mls/hr IVPB Q1H [facility] Rx#: [id number] Oral 260 Output: Urine 300 1000 Other: # Voids 1 1 - Exam Physical Exam: Revealed a 67-year-old female, frail looking, chronically ill, in no distress presently on BiPAP. HEENT:[Neck is supple.] [No neck masses.] [No thyromegaly.] [No JVD.] PERRLA, EOMI, slightly dry mucous membranes noted. Chest: [Diminished breath sounds at the bases, no crackles or rhonchi or wheezes. Cardiac Exam: [Normal S1 and S2, no S3 gallop, no murmur.] Abdomen: [Soft, nontender, no megaly, no rebound, no guarding, normal bowel sounds.] Extremities: [No clubbing, no edema, no cyanosis.] Neurological Exam: [No focal neurologic deficit.] Lymphatics: No lymphadenopathy. [place] skeletal: Normal range of motion, no deformities. Psychiatric: Normal mood affect and mental status examination. - Labs CBC & Chem 7: 07/10/17 04:35 07/10/17 04:35 Labs: Abnormal Lab Results - Last 24 Hours (Table) 07/10/17 07/10/17 Range/Units 04:35 04:35 Lymphocytes # 0.5 L (1.0-4.8) k/uL Sodium 134 L (137-145) mmol/L Chloride 97 L (98-107) mmol/L BUN 25 H (7-17) mg/dL Creatinine 0.48 L (0.52-1.04) mg/dL Glucose 139 H (74-99) mg/dL Assessment and Plan Assessment: Impression: Acute on chronic hypoxic and hypercapnic respiratory failure secondary to COPD exacerbation., Patient remains on BiPAP at present. 2 multiple comorbidities including acute influenza be bronchitis, advanced end- stage COPD, chronic hypoxic respiratory failure, protein calorie malnutrition, benign essential hypertension, coronary artery disease, pure hypercholesterolemia, history of systolic congestive heart failure with ejection fraction of 45%. Recommendation: Continue present supportive care measures, will transfer the patient out of the ICU to a regular medical floor, continue BiPAP, continue bronchodilators, steroids, antibiotics, GI and DVT prophylaxis. Overall long- term prognosis remains very poor and guarded. We'll continue to follow. Time with Patient: Less than 30
[2017-07-10 11:14] VITALS: BMI 13.5
[2017-07-10] MEDS: LORazepam 2 MG/ML INJ IV PRN ×2 (15:14→17:23)
--- NOTE | 2017-07-10 15:25 | CDI ---
Last Revision, March 2017 Documentation Clarification Form Date: 06/09/17 0117 From: Danelle Beasley RN, CCDS Admit Date: 07/08/2017 6:59:00 AM Patient Name: Monica Martinez Visit Number: [id number] ATTENTION: The Clinical Documentation Specialists (CDI) and [facility] Coding Staff appreciate your assistance in clarifying documentation. Please respond to the clarification below the line at the bottom and electronically sign. The CDI & [facility] Coding staff will review the response and follow-up if needed. Please note: Queries are made part of the Legal Health Record. If you have any questions, please contact the author of this message via ITS. Malnourishment is documented 07/09 by Pulmonary and requires further specificity. History/Risk Factors: End Stage COPD, Asthma, GERD, HTN Clinical Indicators: 07/10 Pulmonary Progress Note: "She is extremely cachectic and emaciated with BMI of 13.9." Labs: Albumin: 3.7 Total Protein: 6.6 Current BMI: 13.6 Insufficient energy intake: RD: "She is extremely cachectic and emaciated with BMI of 13.9." Weight Loss: RD Consult: 24% involuntary weight loss in the past 6 months, visible fat and muscle loss Loss of subcutaneous fat: RD: "24% involuntary weight loss in the past 6 months , visible fat and muscle loss" 06/09 RD Consult: "protruding clavical and depression between fingers." Decreased hand greens picker strength:" 67-year-old female, frail looking, chronically ill, in no distress presently on BiPAP." Treatment: Dietary Consult: Completed 06/09 Supplements: Glucerna TID Lab monitoring: Am Daily In your professional opinion, can you please clarify if these findings signify one of the following conditions? Mild Protein-Calorie Malnutrition Moderate Protein-Calorie Malnutrition Severe Protein-Calorie Malnutrition Other condition, please specify Unable to determine Please continue to document in your progress notes and discharge summary in order to capture severity of illness and risk of mortality. Include clinical findings that support your diagnosis. MTDD
[2017-07-10] MEDS: IPRATROPIUM-ALBUTEROL 3 ML NEB INHALATION PRN ×2 (15:27→23:06)
[2017-07-10] MEDS: LORazepam 1 MG TAB PO SCH (20:33)
--- NOTE | 2017-07-10 21:32 | P.PN ---
Subjective Progress Note Date: 07/09/17 Principal diagnosis: Acute hypoxic respiratory failure and COPD exacerbation due to influenza B Patient is a 67-year-old female with a known history of advanced COPD and chronic hypoxic respiratory failure and frequent hospital admissions came to ER with complaints of worsening shortness of breath. Patient also positive for influenza B On 07/09/2017 Patient is on BiPAP today. Shortness of breath is slightly improved. No cough or sputum production. Chest x-ray showed hyperinflation and chronic interstitial changes bilaterally. Lactic acidosis improved. No fever no chills. No nausea vomiting or abdominal pain. Patient is currently is being monitored in the ICU. Pulmonary is following Complete review of systems could not be obtained from the patient due to her respiratory status Current medications reviewed. Objective - Vital Signs Vital signs: Vital Signs Temp 96.3 F L 07/09/17 08:00 Pulse 114 H 07/09/17 16:15 Resp 24 07/09/17 15:00 BP 109/67 07/09/17 15:00 Pulse Ox 100 07/09/17 15:00 Intake & Output 07/08/17 07/09/17 07/09/17 18:59 06:59 18:59 Intake Total 120 260 650 Output Total 1200 1200 300 Balance -1080 -940 350 Weight 49.89 kg 32.2 kg Intake: IV 240 140 Sodium Chloride 0.9% 1, 240 140 000 ml @ 20 mls/hr IV . Q24H [facility] Rx#:[id number] Intake, IV Titration 120 20 350 Amount Levofloxacin 500Mg-D5w 150 Pmx 500 mg In Dextrose/ Water 1 100ml.bag @ 100 mls/hr IVPB Q24HR [facility] Rx# :[id number] Magnesium Sulfate-D5w Pmx 200 1 gm In Dextrose/Water 1 100ml.bag @ 100 mls/hr IVPB Q1H [facility] Rx#: [id number] Sodium Chloride 0.9% 1, 120 20 000 ml @ 20 mls/hr IV . Q24H [facility] Rx#:[id number] Oral 160 Output: Urine 1200 1200 300 Other: # Voids 0 1 - Exam PHYSICAL EXAMINATION: Patient is lying in the bed comfortably, no acute distress, awake alert and oriented. Currently on BiPAP. Patient is cachectic. HEENT: Normocephalic. Neck is supple. Pupils reactive. Nostrils clear. Oral cavity is moist. Ears reveal no drainage. Neck reveals no JVD, carotid bruits, or thyromegaly. CHEST EXAMINATION: Trachea is central. Symmetrical expansion. Bilateral diminished air entry. Minimal wheezing expiratory CARDIAC: Normal S1, S2 with no gallops. No murmurs ABDOMEN: Soft. Bowel sounds normal. No organomegaly. No abdominal bruits. Extremities: reveal no edema. No clubbing or cyanosis Neurologically awake, alert, oriented x3 with well-coordinated movements. No focal deficits noted Skin: No rash or skin lesions. Psychiatric: [id number]. Nonsuicidal Musculoskeletal: No joint swelling or deformity. Normal range of motion. - Labs CBC & Chem 7: 07/10/17 04:35 07/10/17 04:35 Labs: Abnormal Lab Results - Last 24 Hours (Table) 07/08/17 07/08/17 07/09/17 Range/Units 18:30 23:09 04:37 WBC 11.0 H (3.8-10.6) k/uL Neutrophils # 10.0 H (1.3-7.7) k/uL Lymphocytes # 0.6 L (1.0-4.8) k/uL Sodium (137-145) mmol/L BUN (7-17) mg/dL Creatinine (0.52-1.04) mg/dL Glucose (74-99) mg/dL POC Glucose (mg/dL) 101 H 109 H (75-99) mg/dL 07/09/17 Range/Units 04:37 WBC (3.8-10.6) k/uL Neutrophils # (1.3-7.7) k/uL Lymphocytes # (1.0-4.8) k/uL Sodium 136 L (137-145) mmol/L BUN 25 H (7-17) mg/dL Creatinine 0.50 L (0.52-1.04) mg/dL Glucose 112 H (74-99) mg/dL POC Glucose (mg/dL) (75-99) mg/dL Assessment and Plan Assessment: Acute on chronic hypoxic and hypercapnic respiratory failure secondary to COPD Acute COPD exacerbation Acute influenza B infection Addresses COPD/end-stage COPD with gold stage IV Nicotine addiction Moderate to severe protein calorie malnutrition Hypertension Hyperlipidemia History of coronary artery disease Poor functional status DVT prophylaxis Patient will be continued on IV steroids and breathing treatments. Currently patient is requiring BiPAP admission all day. We'll continue to monitor the patient ICU and follow closely. Prognosis is guarded. Further recommendations based on the clinical course. Pulmonary is following. Time with Patient: Greater than 30
[2017-07-11] MEDS: IPRATROPIUM-ALBUTEROL 3 ML NEB INHALATION PRN ×4 (03:27→23:29)
[2017-07-11] MEDS: methylPREDNISolone SOD SUCCI 125 MG/2 ML VIAL IV SCH ×3 (06:39→17:27)
[2017-07-11] MEDS: SYMBICORT 160-4.5 MCG INHALER INHALATION SCH ×2 (08:10→20:48)
[2017-07-11] MEDS: ALBUTEROL NEBULIZED 2.5 MG/3 ML INHALATION SCH ×4 (08:10→20:48)
[2017-07-11] MEDS: OSELTAMIVIR 75 MG CAP PO SCH ×2 (08:15→20:45)
[2017-07-11] MEDS: LEVOFLOXACIN 500 MG TAB PO SCH (08:15)
[2017-07-11] MEDS: PANTOPRAZOLE 40 MG TABLET PO SCH ×2 (08:15→17:27)
[2017-07-11] MEDS: amLODIPine 2.5 MG TAB PO SCH (08:15)
[2017-07-11] MEDS: SODIUM CHLORIDE 0.9% 1,000 ML IV SCH (08:17)
[2017-07-11] MEDS: HYDROcodone/APAP 7.5-325MG 1 EACH TAB PO PRN ×2 (08:21→17:46)
[2017-07-11] MEDS: LORazepam 2 MG/ML INJ IV PRN ×2 (08:21→17:48)
[2017-07-11] MEDS ORDERED: MAG HYDROX/AL HYDROX/SIMETH 30 ML CUP PO PRN (14:20)
--- NOTE | 2017-07-11 14:42 | P.PN ---
Subjective Progress Note Date: 07/11/17 Principal diagnosis: Acute on chronic hypoxic and hypercapnic respiratory failure secondary to COPD exacerbation. A 67-year-old female patient with advanced COPD and chronic hypoxic respiratory failure and frequent hospitalizations in the past for the same. The patient came in to the emergency department having significant shortness of breath at the [place] past few days. She was very much dyspneic and her breath sounds are markedly diminished in lung bases bilaterally. She denied having any chest pain. She denied having any productive cough. No fever or chills. She was immediately placed on BiPAP at a pressure of 10 over 4 cm of water. She was sent to telemetry and I saw this patient on moved to the intensive care unit. She is lethargic and she is arousable. She is having no problems tolerating the BiPAP however she is still short of breath even while being on the BiPAP mask. Her current FiO2 is a 50%. The blood gases that was done while on the BiPAP showed a pH of 7.22 with a pCO2 of 61 and pO2 of 29 and FiO2 will be gradually weaned down. White cell count is at 22.8. Coagulation profile is within normal limits. Renal function stable. Chest x-ray shows COPD with chronic interstitial changes in the lungs bilaterally with a stable 0.5 CM nodule in the right midlung. The patient's troponin is not elevated. Lactic level is at 1. Noted the patient tells me that she has not smoked cigarettes over the past 4 months. On 1017 the patient is being seen for a follow-up. The patient spent all day on a BiPAP yesterday and currently she is feeling better and she was taken off the BiPAP this morning. She is looking well. Chest is less bronchospastic and wheezy and the patient is less short of breath compared to yesterday. The chest x-ray showing hyperinflation and chronic interstitial changes along this bilaterally. No cough or sputum production. No chest pain. Lactic acid level was down to 1. As mentioned earlier the patient has not smoked for almost 4 months. She is extremely cachectic and emaciated with BMI of 13.9. White cell count is not elevated at 11. Rest of the electrolytes are all within normal limits. On 07/10/2017, patient remains in the ICU, on BiPAP, seems to be quite comfortable , in no distress. Patient seems to be less bronchospastic today, breath sounds are diminished at the bases, no rhonchi, no wheezes, patient seems to be actually a bit more comfortable today, hence I plan to transfer the patient out of the ICU to a regular medical floor. Chest x-ray and labs were all reviewed. Reevaluated today on 07/11/2017, she is on the fourth medical floor, on BiPAP, in no distress. No cough no wheezing no shortness of breath, but seems to be almost BiPAP dependent. Albuterol reviewed including CBC and her basic metabolic profile. Chest x-ray from admission was also reviewed. Objective - Vital Signs Vital signs: Vital Signs Temp 97.1 F L 07/11/17 06:27 Pulse 96 07/11/17 11:31 Resp 16 07/11/17 06:27 BP 129/82 07/11/17 06:27 Pulse Ox 98 07/11/17 06:27 Intake & Output 07/10/17 07/11/17 07/11/17 18:59 06:59 18:59 Intake Total 140 250 Output Total 300 1 Balance -160 249 Weight 31.5 kg Intake: IV 140 Sodium Chloride 0.9% 1, 140 000 ml @ 20 mls/hr IV . Q24H [facility] Rx#:[id number] Oral 250 Output: Urine 300 1 Other: Voiding Method Bedpan Bedpan # Voids 0 2 - Exam Physical Exam: Revealed a 67-year-old female, frail looking, chronically ill, in no distress presently on BiPAP. HEENT:[Neck is supple.] [No neck masses.] [No thyromegaly.] [No JVD.] PERRLA, EOMI, slightly dry mucous membranes noted. Chest: [Diminished breath sounds at the bases, no crackles or rhonchi or wheezes. Cardiac Exam: [Normal S1 and S2, no S3 gallop, no murmur.] Abdomen: [Soft, nontender, no megaly, no rebound, no guarding, normal bowel sounds.] Extremities: [No clubbing, no edema, no cyanosis.] Neurological Exam: [No focal neurologic deficit.] Lymphatics: No lymphadenopathy. Musko skeletal: Normal range of motion, no deformities. Psychiatric: Normal mood affect and mental status examination. - Labs CBC & Chem 7: 07/10/17 04:35 07/10/17 04:35 Assessment and Plan Assessment: Impression: Acute on chronic hypoxic and hypercapnic respiratory failure secondary to COPD exacerbation., Patient remains on BiPAP at present. 2 multiple comorbidities including acute influenza be bronchitis, advanced end- stage COPD, chronic hypoxic respiratory failure, protein calorie malnutrition, benign essential hypertension, coronary artery disease, pure hypercholesterolemia, history of systolic congestive heart failure with ejection fraction of 45%. Recommendation: Continue present supportive care measures, continue bronchodilators, steroids, continue BiPAP, possible discharge planning in the next 24-48 hours. Time with Patient: Less than 30
[2017-07-11] MEDS: LORazepam 1 MG TAB PO SCH (20:45)
--- NOTE | 2017-07-11 23:43 | P.PN ---
Subjective Progress Note Date: 07/10/17 Principal diagnosis: Acute hypoxic respiratory failure and COPD exacerbation due to influenza B Patient is a 67-year-old female with a known history of advanced COPD and chronic hypoxic respiratory failure and frequent hospital admissions came to ER with complaints of worsening shortness of breath. Patient also positive for influenza B On 07/09/2017 Patient is on BiPAP today. Shortness of breath is slightly improved. No cough or sputum production. Chest x-ray showed hyperinflation and chronic interstitial changes bilaterally. Lactic acidosis improved. No fever no chills. No nausea vomiting or abdominal pain. Patient is currently is being monitored in the ICU. Pulmonary is following 07/10/2017 Currently patient is on BiPAP otherwise been breathing status is slightly improved. A alvarado is being transferred to medical for today. No complaints of fever or chills no nausea vomiting or abdominal pain. No complaints of chest pain. Patient will be continued on IV steroids breathing treatments and antibiotics. Complete review of systems could not be obtained from the patient due to her respiratory status Current medications reviewed. Objective - Vital Signs Vital signs: Vital Signs Temp 97.4 F L 07/10/17 17:15 Pulse 93 07/10/17 20:37 Resp 15 07/10/17 17:15 BP 147/71 07/10/17 17:15 Pulse Ox 100 07/10/17 17:15 Intake & Output 07/10/17 07/10/17 07/11/17 06:59 18:59 06:59 Intake Total 240 140 Output Total 1000 300 Balance -760 -160 Weight 31.5 kg 31.5 kg Intake: IV 240 140 Sodium Chloride 0.9% 1, 240 140 000 ml @ 20 mls/hr IV . Q24H [facility] Rx#:[id number] Output: Urine 1000 300 Other: Voiding Method Bedpan # Voids 1 - Exam PHYSICAL EXAMINATION: Patient is lying in the bed comfortably, no acute distress, awake alert and oriented. Currently on BiPAP. Patient is cachectic. HEENT: Normocephalic. Neck is supple. Pupils reactive. Nostrils clear. Oral cavity is moist. Ears reveal no drainage. Neck reveals no JVD, carotid bruits, or thyromegaly. CHEST EXAMINATION: Trachea is central. Symmetrical expansion. Bilateral air entry improved. Minimal wheezing expiratory CARDIAC: Normal S1, S2 with no gallops. No murmurs ABDOMEN: Soft. Bowel sounds normal. No organomegaly. No abdominal bruits. Extremities: reveal no edema. No clubbing or cyanosis Neurologically awake, alert, oriented x3 with well-coordinated movements. No focal deficits noted Skin: No rash or skin lesions. Psychiatric: [id number]. Nonsuicidal Musculoskeletal: No joint swelling or deformity. Normal range of motion. - Labs CBC & Chem 7: 07/10/17 04:35 07/10/17 04:35 Labs: Abnormal Lab Results - Last 24 Hours (Table) 07/10/17 07/10/17 Range/Units 04:35 04:35 Lymphocytes # 0.5 L (1.0-4.8) k/uL Sodium 134 L (137-145) mmol/L Chloride 97 L (98-107) mmol/L BUN 25 H (7-17) mg/dL Creatinine 0.48 L (0.52-1.04) mg/dL Glucose 139 H (74-99) mg/dL Assessment and Plan Assessment: Acute on chronic hypoxic and hypercapnic respiratory failure secondary to COPD Acute COPD exacerbation Acute influenza B infection Advanced COPD/end-stage COPD with gold stage IV Nicotine addiction Moderate to severe protein calorie malnutrition Hypertension Hyperlipidemia History of coronary artery disease Poor functional status Moderate protein calorie malnutrition DVT prophylaxis Patient will be continued on IV steroids and breathing treatments. Continue with BiPAP. Prognosis is guarded. Further recommendations based on the clinical course. Pulmonary is following. Time with Patient: Greater than 30
--- NOTE | 2017-07-11 23:45 | P.PN ---
Subjective Progress Note Date: 07/11/17 Principal diagnosis: Acute hypoxic respiratory failure and COPD exacerbation due to influenza B Patient is a 67-year-old female with a known history of advanced COPD and chronic hypoxic respiratory failure and frequent hospital admissions came to ER with complaints of worsening shortness of breath. Patient also positive for influenza B On 07/09/2017 Patient is on BiPAP today. Shortness of breath is slightly improved. No cough or sputum production. Chest x-ray showed hyperinflation and chronic interstitial changes bilaterally. Lactic acidosis improved. No fever no chills. No nausea vomiting or abdominal pain. Patient is currently is being monitored in the ICU. Pulmonary is following 07/10/2017 Currently patient is on BiPAP otherwise been breathing status is slightly improved. A alvarado is being transferred to medical for today. No complaints of fever or chills no nausea vomiting or abdominal pain. No complaints of chest pain. Patient will be continued on IV steroids breathing treatments and antibiotics. 07/11/2017 Patient's breathing status is much improved now otherwise patient still on BiPAP. Awake alert oriented. Able to communicate. Otherwise is complaining of abdominal discomfort. No nausea vomiting. No diarrhea. No fever no chills. All other review of systems negative for the above Current medications reviewed. Objective - Vital Signs Vital signs: Vital Signs Temp 97.6 F 07/11/17 22:54 Pulse 89 07/11/17 22:54 Resp 16 07/11/17 22:54 BP 121/65 07/11/17 22:54 Pulse Ox 98 07/11/17 22:54 Intake & Output 07/11/17 07/11/17 07/12/17 06:59 18:59 06:59 Intake Total 250 Output Total 1 Balance 249 Intake: Oral 250 Output: Urine 1 Other: Voiding Method Bedpan # Voids 0 2 0 - Exam PHYSICAL EXAMINATION: Patient is lying in the bed comfortably, no acute distress, awake alert and oriented. Currently on BiPAP. Patient is cachectic. HEENT: Normocephalic. Neck is supple. Pupils reactive. Nostrils clear. Oral cavity is moist. Ears reveal no drainage. Neck reveals no JVD, carotid bruits, or thyromegaly. CHEST EXAMINATION: Trachea is central. Symmetrical expansion. Bilateral air entry improved. Minimal wheezing expiratory CARDIAC: Normal S1, S2 with no gallops. No murmurs ABDOMEN: Soft. Bowel sounds normal. No organomegaly. No abdominal bruits. Extremities: reveal no edema. No clubbing or cyanosis Neurologically awake, alert, oriented x3 with well-coordinated movements. No focal deficits noted Skin: No rash or skin lesions. Psychiatric: [id number]. Nonsuicidal Musculoskeletal: No joint swelling or deformity. Normal range of motion. - Labs CBC & Chem 7: 07/10/17 04:35 07/10/17 04:35 Assessment and Plan Assessment: Acute on chronic hypoxic and hypercapnic respiratory failure secondary to COPD Acute COPD exacerbation Acute influenza B infection Advanced COPD/end-stage COPD with gold stage IV Nicotine addiction Moderate to severe protein calorie malnutrition Hypertension Hyperlipidemia History of coronary artery disease Poor functional status Moderate protein calorie malnutrition DVT prophylaxis Patient will be continued on IV steroids and breathing treatments. Continue with BiPAP. Prognosis is guarded. Further recommendations based on the clinical course. Pulmonary is following. Time with Patient: Greater than 30
[2017-07-12] MEDS: methylPREDNISolone SOD SUCCI 125 MG/2 ML VIAL IV SCH ×4 (00:07→17:29)
[2017-07-12] MEDS: IPRATROPIUM-ALBUTEROL 3 ML NEB INHALATION PRN (03:16)
[2017-07-12] MEDS: ALBUTEROL NEBULIZED 2.5 MG/3 ML INHALATION SCH ×4 (07:06→19:21)
[2017-07-12] MEDS: SYMBICORT 160-4.5 MCG INHALER INHALATION SCH ×2 (07:06→19:24)
[2017-07-12 07:56] LABS: Glucose,Whole Blood 161 mg/dL (75-99)
[2017-07-12] MEDS: SODIUM CHLORIDE 0.9% 1,000 ML IV SCH (08:40)
[2017-07-12] MEDS: INSULIN ASPART 100 UNIT/ML 1 ML 10 ML VIAL SQ SCH ×4 (08:44→22:04)
[2017-07-12] MEDS: LEVOFLOXACIN 500 MG TAB PO SCH (08:44)
[2017-07-12] MEDS: amLODIPine 2.5 MG TAB PO SCH (08:44)
[2017-07-12] MEDS: OSELTAMIVIR 75 MG CAP PO SCH ×2 (08:44→20:28)
[2017-07-12] MEDS: PANTOPRAZOLE 40 MG TABLET PO SCH ×2 (08:44→17:29)
[2017-07-12] MEDS: HYDROcodone/APAP 7.5-325MG 1 EACH TAB PO PRN ×2 (09:05→20:27)
[2017-07-12] MEDS: LORazepam 2 MG/ML INJ IV PRN (09:05)
[2017-07-12 12:03] LABS: Glucose,Whole Blood 124 mg/dL (75-99)
--- NOTE | 2017-07-12 13:52 | P.PN ---
Subjective Progress Note Date: 07/12/17 Principal diagnosis: Acute on chronic hypoxic and hypercapnic respiratory failure secondary to COPD exacerbation. A 67-year-old female patient with advanced COPD and chronic hypoxic respiratory failure and frequent hospitalizations in the past for the same. The patient came in to the emergency department having significant shortness of breath at the [place] past few days. She was very much dyspneic and her breath sounds are markedly diminished in lung bases bilaterally. She denied having any chest pain. She denied having any productive cough. No fever or chills. She was immediately placed on BiPAP at a pressure of 10 over 4 cm of water. She was sent to telemetry and I saw this patient on moved to the intensive care unit. She is lethargic and she is arousable. She is having no problems tolerating the BiPAP however she is still short of breath even while being on the BiPAP mask. Her current FiO2 is a 50%. The blood gases that was done while on the BiPAP showed a pH of 7.22 with a pCO2 of 61 and pO2 of 29 and FiO2 will be gradually weaned down. White cell count is at 22.8. Coagulation profile is within normal limits. Renal function stable. Chest x-ray shows COPD with chronic interstitial changes in the lungs bilaterally with a stable 0.5 CM nodule in the right midlung. The patient's troponin is not elevated. Lactic level is at 1. Noted the patient tells me that she has not smoked cigarettes over the past 4 months. On 1017 the patient is being seen for a follow-up. The patient spent all day on a BiPAP yesterday and currently she is feeling better and she was taken off the BiPAP this morning. She is looking well. Chest is less bronchospastic and wheezy and the patient is less short of breath compared to yesterday. The chest x-ray showing hyperinflation and chronic interstitial changes along this bilaterally. No cough or sputum production. No chest pain. Lactic acid level was down to 1. As mentioned earlier the patient has not smoked for almost 4 months. She is extremely cachectic and emaciated with BMI of 13.9. White cell count is not elevated at 11. Rest of the electrolytes are all within normal limits. On 07/10/2017, patient remains in the ICU, on BiPAP, seems to be quite comfortable , in no distress. Patient seems to be less bronchospastic today, breath sounds are diminished at the bases, no rhonchi, no wheezes, patient seems to be actually a bit more comfortable today, hence I plan to transfer the patient out of the ICU to a regular medical floor. Chest x-ray and labs were all reviewed. Reevaluated today on 07/11/2017, she is on the fourth medical floor, on BiPAP, in no distress. No cough no wheezing no shortness of breath, but seems to be almost BiPAP dependent. Albuterol reviewed including CBC and her basic metabolic profile. Chest x-ray from admission was also reviewed. Reevaluated today on 07/12/2017, patient remains about the same, feeling better, however she is using the BiPAP most of the time. Patient has her own BiPAP at home, and today I suggested sending her to a rehab facility, or a penitentiary, she is extremely reluctant to be discharged to any facility, she would like to be discharged home. However considering her chronic obstructive lung disease and her overall condition, patient will continue to bounce back to the hospital frequently with COPD exacerbation. Patient has severe end-stage COPD, may even be the time to consider evaluation by hospice. Her overall prognostic picture does not look very promising. Objective - Vital Signs Vital signs: Vital Signs Temp 97.1 F L 07/12/17 06:22 Pulse 92 07/12/17 11:02 Resp 16 07/12/17 06:22 BP 139/94 07/12/17 06:22 Pulse Ox 99 07/12/17 06:22 Intake & Output 07/11/17 07/12/17 07/12/17 18:59 06:59 18:59 Intake Total 60 Output Total 1 Balance 59 Weight 31.5 kg Intake: Oral 60 Output: Urine 1 Other: Voiding Method Bedside Commode # Voids 2 2 2 - Exam Physical Exam: Revealed a 67-year-old female, frail looking, chronically ill, in no distress presently on BiPAP. HEENT:[Neck is supple.] [No neck masses.] [No thyromegaly.] [No JVD.] PERRLA, EOMI, slightly dry mucous membranes noted. Chest: [Diminished breath sounds at the bases, no crackles or rhonchi or wheezes. Cardiac Exam: [Normal S1 and S2, no S3 gallop, no murmur.] Abdomen: [Soft, nontender, no megaly, no rebound, no guarding, normal bowel sounds.] Extremities: [No clubbing, no edema, no cyanosis.] Neurological Exam: [No focal neurologic deficit.] Lymphatics: No lymphadenopathy. Musko skeletal: Normal range of motion, no deformities. Psychiatric: Normal mood affect and mental status examination. - Labs CBC & Chem 7: 07/10/17 04:35 07/10/17 04:35 Labs: Abnormal Lab Results - Last 24 Hours (Table) 07/12/17 07/12/17 Range/Units 07:51 11:48 POC Glucose (mg/dL) 161 H 124 H (75-99) mg/dL Assessment and Plan Assessment: Impression: Acute on chronic hypoxic and hypercapnic respiratory failure secondary to COPD exacerbation., Patient remains on BiPAP at present. 2 multiple comorbidities including acute influenza be bronchitis, advanced end- stage COPD, chronic hypoxic respiratory failure, protein calorie malnutrition, benign essential hypertension, coronary artery disease, pure hypercholesterolemia, history of systolic congestive heart failure with ejection fraction of 45%. Recommendation: Continue present supportive care measures, continue bronchodilators, steroids, continue BiPAP, discharge home today, prognosis remains very poor and guarded, patient does not want to consider ECF for rehab facility. Hence I have a feeling that she will end up coming back frequently to the hospital. May have to consider hospice if the patient is agreeable to this. Again prognosis is extremely poor. Time with Patient: Less than 30
[2017-07-12] MEDS ORDERED: LORazepam 0.5 MG TAB PO PRN (15:03)
[2017-07-12 16:59] LABS: Glucose,Whole Blood 191 mg/dL (75-99)
[2017-07-12] MEDS: LORazepam 1 MG TAB PO SCH (20:28)
[2017-07-12 20:54] LABS: Hemoglobin A1C 5.7 % (4.0-6.0)
[2017-07-12 21:02] LABS: Glucose,Whole Blood 134 mg/dL (75-99)
[2017-07-13] MEDS: methylPREDNISolone SOD SUCCI 125 MG/2 ML VIAL IV SCH ×3 (00:29→13:02)
--- NOTE | 2017-07-13 00:58 | P.PN ---
Subjective Progress Note Date: 07/12/17 Principal diagnosis: Acute hypoxic respiratory failure and COPD exacerbation due to influenza B Patient is a 67-year-old female with a known history of advanced COPD and chronic hypoxic respiratory failure and frequent hospital admissions came to ER with complaints of worsening shortness of breath. Patient also positive for influenza B On 07/09/2017 Patient is on BiPAP today. Shortness of breath is slightly improved. No cough or sputum production. Chest x-ray showed hyperinflation and chronic interstitial changes bilaterally. Lactic acidosis improved. No fever no chills. No nausea vomiting or abdominal pain. Patient is currently is being monitored in the ICU. Pulmonary is following 07/10/2017 Currently patient is on BiPAP otherwise been breathing status is slightly improved. A alvarado is being transferred to medical for today. No complaints of fever or chills no nausea vomiting or abdominal pain. No complaints of chest pain. Patient will be continued on IV steroids breathing treatments and antibiotics. 07/11/2017 Patient's breathing status is much improved now otherwise patient still on BiPAP. Awake alert oriented. Able to communicate. Otherwise is complaining of abdominal discomfort. No nausea vomiting. No diarrhea. No fever no chills. 07/12/2017 Patient is still requiring BiPAP patient most of the time. Currently on nasal cannula. Otherwise patient is stable with discharge to rehab facility with continuous BiPAP. Otherwise patient does not want to be discharged to rehab and wants to go home. Social work and [facility] was consulted for discharge planning. Patient does have BiPAP at home. Otherwise no fever no chills. No nausea vomiting or abdominal pain. No chest pain. All other review of systems negative for the above Current medications reviewed. Objective - Vital Signs Vital signs: Vital Signs Temp 98.1 F 07/12/17 17:42 Pulse 88 07/12/17 19:31 Resp 18 07/12/17 19:31 BP 155/78 07/12/17 17:42 Pulse Ox 96 07/12/17 17:42 Intake & Output 07/12/17 07/12/17 07/13/17 06:59 18:59 06:59 Intake Total 120 Output Total 1 Balance 119 Weight 31.5 kg Intake: Oral 120 Output: Urine 1 Other: Voiding Method Bedside Commode # Voids 2 2 - Exam PHYSICAL EXAMINATION: Patient is lying in the bed comfortably, no acute distress, awake alert and oriented. Currently on BiPAP. Patient is cachectic. HEENT: Normocephalic. Neck is supple. Pupils reactive. Nostrils clear. Oral cavity is moist. Ears reveal no drainage. Neck reveals no JVD, carotid bruits, or thyromegaly. CHEST EXAMINATION: Trachea is central. Symmetrical expansion. Bilateral air entry improved. Minimal wheezing expiratory CARDIAC: Normal S1, S2 with no gallops. No murmurs ABDOMEN: Soft. Bowel sounds normal. No organomegaly. No abdominal bruits. Extremities: reveal no edema. No clubbing or cyanosis Neurologically awake, alert, oriented x3 with well-coordinated movements. No focal deficits noted Skin: No rash or skin lesions. Psychiatric: [id number]. Nonsuicidal Musculoskeletal: No joint swelling or deformity. Normal range of motion. - Labs CBC & Chem 7: 07/10/17 04:35 07/10/17 04:35 Labs: Abnormal Lab Results - Last 24 Hours (Table) 07/12/17 07/12/17 07/12/17 Range/Units 07:51 11:48 16:54 POC Glucose (mg/dL) 161 H 124 H 191 H (75-99) mg/dL 07/12/17 Range/Units 20:48 POC Glucose (mg/dL) 134 H (75-99) mg/dL Assessment and Plan Assessment: Acute on chronic hypoxic and hypercapnic respiratory failure secondary to COPD Acute COPD exacerbation Acute influenza B infection Advanced COPD/end-stage COPD with gold stage IV Nicotine addiction Moderate to severe protein calorie malnutrition Hypertension Hyperlipidemia History of coronary artery disease Poor functional status Moderate protein calorie malnutrition DVT prophylaxis Patient will be continued on IV steroids and breathing treatments. Continue with BiPAP. Prognosis is guarded. Further recommendations based on the clinical course. Pulmonary is following. Time with Patient: Greater than 30
[2017-07-13] MEDS: ALBUTEROL NEBULIZED 2.5 MG/3 ML INHALATION SCH ×3 (06:59→15:10)
[2017-07-13] MEDS: SYMBICORT 160-4.5 MCG INHALER INHALATION SCH (06:59)
[2017-07-13 07:22] LABS: Glucose,Whole Blood 161 mg/dL (75-99)
[2017-07-13] MEDS: HYDROcodone/APAP 7.5-325MG 1 EACH TAB PO PRN (10:41)
[2017-07-13] MEDS: INSULIN ASPART 100 UNIT/ML 1 ML 10 ML VIAL SQ SCH ×3 (10:42→17:50)
[2017-07-13] MEDS: LEVOFLOXACIN 500 MG TAB PO SCH (10:42)
[2017-07-13] MEDS: PANTOPRAZOLE 40 MG TABLET PO SCH ×2 (10:42→17:49)
[2017-07-13] MEDS: amLODIPine 2.5 MG TAB PO SCH (10:42)
[2017-07-13] MEDS: SODIUM CHLORIDE 0.9% 1,000 ML IV SCH (10:43)
--- NOTE | 2017-07-13 11:45 | P.PN ---
Subjective Progress Note Date: 07/13/17 Principal diagnosis: Acute on chronic hypoxic and hypercapnic respiratory failure secondary to COPD exacerbation. A 67-year-old female patient with advanced COPD and chronic hypoxic respiratory failure and frequent hospitalizations in the past for the same. The patient came in to the emergency department having significant shortness of breath at the [place] past few days. She was very much dyspneic and her breath sounds are markedly diminished in lung bases bilaterally. She denied having any chest pain. She denied having any productive cough. No fever or chills. She was immediately placed on BiPAP at a pressure of 10 over 4 cm of water. She was sent to telemetry and I saw this patient on moved to the intensive care unit. She is lethargic and she is arousable. She is having no problems tolerating the BiPAP however she is still short of breath even while being on the BiPAP mask. Her current FiO2 is a 50%. The blood gases that was done while on the BiPAP showed a pH of 7.22 with a pCO2 of 61 and pO2 of 29 and FiO2 will be gradually weaned down. White cell count is at 22.8. Coagulation profile is within normal limits. Renal function stable. Chest x-ray shows COPD with chronic interstitial changes in the lungs bilaterally with a stable 0.5 CM nodule in the right midlung. The patient's troponin is not elevated. Lactic level is at 1. Noted the patient tells me that she has not smoked cigarettes over the past 4 months. On 1017 the patient is being seen for a follow-up. The patient spent all day on a BiPAP yesterday and currently she is feeling better and she was taken off the BiPAP this morning. She is looking well. Chest is less bronchospastic and wheezy and the patient is less short of breath compared to yesterday. The chest x-ray showing hyperinflation and chronic interstitial changes along this bilaterally. No cough or sputum production. No chest pain. Lactic acid level was down to 1. As mentioned earlier the patient has not smoked for almost 4 months. She is extremely cachectic and emaciated with BMI of 13.9. White cell count is not elevated at 11. Rest of the electrolytes are all within normal limits. On 07/10/2017, patient remains in the ICU, on BiPAP, seems to be quite comfortable , in no distress. Patient seems to be less bronchospastic today, breath sounds are diminished at the bases, no rhonchi, no wheezes, patient seems to be actually a bit more comfortable today, hence I plan to transfer the patient out of the ICU to a regular medical floor. Chest x-ray and labs were all reviewed. Reevaluated today on 07/11/2017, she is on the fourth medical floor, on BiPAP, in no distress. No cough no wheezing no shortness of breath, but seems to be almost BiPAP dependent. Albuterol reviewed including CBC and her basic metabolic profile. Chest x-ray from admission was also reviewed. Reevaluated today on 07/12/2017, patient remains about the same, feeling better, however she is using the BiPAP most of the time. Patient has her own BiPAP at home, and today I suggested sending her to a rehab facility, or a detention, she is extremely reluctant to be discharged to any facility, she would like to be discharged home. However considering her chronic obstructive lung disease and her overall condition, patient will continue to bounce back to the hospital frequently with COPD exacerbation. Patient has severe end-stage COPD, may even be the time to consider evaluation by hospice. Her overall prognostic picture does not look very promising. Reevaluated today on 07/13/2017, patient continues to do well breathing easier, remains on BiPAP most of the time. Patient is asking to be discharged home, refuses to consider going to a rehab facility or ECF. Again as noted earlier, patient is known to have severe end-stage COPD, and she would likely require frequent admissions on a regular basis. Objective - Vital Signs Vital signs: Vital Signs Temp 97.1 F L 07/13/17 06:29 Pulse 88 07/13/17 07:10 Resp 22 07/13/17 06:29 BP 151/85 07/13/17 06:29 Pulse Ox 100 07/13/17 06:29 Intake & Output 07/12/17 07/13/17 07/13/17 18:59 06:59 18:59 Intake Total 120 Output Total 1 Balance 119 Weight 31.5 kg Intake: Oral 120 Output: Urine 1 Other: Voiding Method Bedside Commode # Voids 2 1 - Exam Physical Exam: Revealed a 67-year-old female, frail looking, chronically ill, in no distress presently on BiPAP. HEENT:[Neck is supple.] [No neck masses.] [No thyromegaly.] [No JVD.] PERRLA, EOMI, slightly dry mucous membranes noted. Chest: [Diminished breath sounds at the bases, no crackles or rhonchi or wheezes. Cardiac Exam: [Normal S1 and S2, no S3 gallop, no murmur.] Abdomen: [Soft, nontender, no megaly, no rebound, no guarding, normal bowel sounds.] Extremities: [No clubbing, no edema, no cyanosis.] Neurological Exam: [No focal neurologic deficit.] Lymphatics: No lymphadenopathy. [place] skeletal: Normal range of motion, no deformities. Psychiatric: Normal mood affect and mental status examination. - Labs CBC & Chem 7: 07/10/17 04:35 07/10/17 04:35 Labs: Abnormal Lab Results - Last 24 Hours (Table) 07/12/17 07/12/17 07/12/17 Range/Units 11:48 16:54 20:48 POC Glucose (mg/dL) 124 H 191 H 134 H (75-99) mg/dL 07/13/17 Range/Units 07:06 POC Glucose (mg/dL) 161 H (75-99) mg/dL Assessment and Plan Assessment: Impression: Acute on chronic hypoxic and hypercapnic respiratory failure secondary to COPD exacerbation., Patient remains on BiPAP at present. 2 multiple comorbidities including acute influenza be bronchitis, advanced end- stage COPD, chronic hypoxic respiratory failure, protein calorie malnutrition, benign essential hypertension, coronary artery disease, pure hypercholesterolemia, history of systolic congestive heart failure with ejection fraction of 45%. Recommendation: Continue present supportive care measures, continue bronchodilators, steroids, continue BiPAP, consider discharge planning, will continue to follow. Should have follow-up with Dr. Vang in the office within one week. Time with Patient: Less than 30
[2017-07-13 12:20] LABS: Glucose,Whole Blood 179 mg/dL (75-99)
[2017-07-13] MEDS ORDERED: predniSONE 50 MG TAB PO SCH (14:30)
[2017-07-13 15:05] VITALS: BP 137/73; RESP 18; TEMP 97
[2017-07-13] MEDS: IPRATROPIUM-ALBUTEROL 3 ML NEB INHALATION PRN (15:10)
[2017-07-13 15:24] VITALS: PULSE 104
[2017-07-13 17:17] LABS: Glucose,Whole Blood 178 mg/dL (75-99)
--- NOTE | 2017-07-14 01:45 | P.DS ---
Providers Date of admission: 07/08/17 06:59 Expected date of discharge: 07/13/17 Attending physician: Amelia Lujan Consults: 07/08/17 06:56 Consult Physician Routine Consulting Provider: Kamran Carrero Reason/Comments: COPD exacerbation, on Bipap. Do you want consulting provider notified?: Yes Primary care physician: Chantal Acevedo Hospital Course: Discharge diagnosis Acute on chronic hypoxic and hypercapnic respiratory failure secondary to COPD Acute COPD exacerbation Acute influenza B infection Advanced COPD/end-stage COPD with gold stage IV Nicotine addiction Moderate to severe protein calorie malnutrition Hypertension Hyperlipidemia History of coronary artery disease Poor functional status Moderate protein calorie malnutrition DVT prophylaxis Hospital course Patient is a 67-year-old female with a known history of advanced COPD and chronic hypoxic respiratory failure and frequent hospital admissions came to ER with complaints of worsening shortness of breath. Patient also positive for influenza B On 07/09/2017 Patient is on BiPAP today. Shortness of breath is slightly improved. No cough or sputum production. Chest x-ray showed hyperinflation and chronic interstitial changes bilaterally. Lactic acidosis improved. No fever no chills. No nausea vomiting or abdominal pain. Patient is currently is being monitored in the ICU. Pulmonary is following 07/10/2017 Currently patient is on BiPAP otherwise been breathing status is slightly improved. A alvarado is being transferred to medical for today. No complaints of fever or chills no nausea vomiting or abdominal pain. No complaints of chest pain. Patient will be continued on IV steroids breathing treatments and antibiotics. 07/11/2017 Patient's breathing status is much improved now otherwise patient still on BiPAP. Awake alert oriented. Able to communicate. Otherwise is complaining of abdominal discomfort. No nausea vomiting. No diarrhea. No fever no chills. 07/12/2017 Patient is still requiring BiPAP patient most of the time. Currently on nasal cannula. Otherwise patient is stable with discharge to rehab facility with continuous BiPAP. Otherwise patient does not want to be discharged to rehab and wants to go home. Social work and [facility] was consulted for discharge planning. Patient does have BiPAP at home. Otherwise no fever no chills. No nausea vomiting or abdominal pain. No chest pain. 07/13/2017 Patient did improve symptomatically. Patient does require continuous BiPAP machine. Otherwise hemodynamically stable . patient does have BiPAP machine at home. Stable to be discharged home. Cleared by pulmonary as well. Patient is lying in the bed comfortably, no acute distress, awake alert and oriented. Currently on BiPAP. Patient is cachectic. HEENT: Normocephalic. Neck is supple. Pupils reactive. Nostrils clear. Oral cavity is moist. Ears reveal no drainage. Neck reveals no JVD, carotid bruits, or thyromegaly. CHEST EXAMINATION: Trachea is central. Symmetrical expansion. Bilateral air entry improved. No wheezing CARDIAC: Normal S1, S2 with no gallops. No murmurs ABDOMEN: Soft. Bowel sounds normal. No organomegaly. No abdominal bruits. Extremities: reveal no edema. No clubbing or cyanosis Neurologically awake, alert, oriented x3 with well-coordinated movements. No focal deficits noted Skin: No rash or skin lesions. Psychiatric: [id number]. Nonsuicidal Musculoskeletal: No joint swelling or deformity. Normal range of motion. Vital Signs - 24 hr 07/13/17 07/13/17 07/13/17 06:29 06:59 07:10 Temperature 97.1 F L Pulse Rate 84 88 Pulse Rate [ 82 Pulse Oximetery ] Respiratory 22 Rate Blood Pressure 151/85 [Left Arm] O2 Sat by Pulse 100 Oximetry 07/13/17 07/13/17 07/13/17 11:25 11:35 15:00 Temperature 97.0 F L Pulse Rate 86 88 Pulse Rate [ 106 H Pulse Oximetery ] Respiratory 18 Rate Blood Pressure 137/73 [Left Arm] O2 Sat by Pulse 100 Oximetry 07/13/17 07/13/17 15:10 15:23 Temperature Pulse Rate 106 H 104 H Pulse Rate [ Pulse Oximetery ] Respiratory Rate Blood Pressure [Left Arm] O2 Sat by Pulse Oximetry Patient Condition at Discharge: Serious Plan - Discharge Summary Discharge Rx Participant: Yes New Discharge Prescriptions: New Albuterol Nebulized [Ventolin Nebulized] 2.5 mg INHALATION RT-QID #60 nebu Budesonide-Formot 160-4.5 Mcg [Symbicort 160-4.5 Mcg Inhaler] 2 puff INHALATION RT-BID #1 inhaler Levofloxacin [Levaquin] 500 mg PO DAILY 4 Days #4 tab LORazepam [Ativan] 0.5 mg PO TID PRN #21 tab PRN Reason: Anxiety Mag Hydrox/Al Hydrox/Simeth [Maalox] 30 ml PO Q8HR PRN #1 bottle PRN Reason: Gi Upset predniSONE See Taper PO DAILY #45 tab Continue HYDROcodone/APAP 7.5-325MG [[place] 7.5-325] 1 tab PO Q8H PRN PRN Reason: Pain Budesonide-Formot 160-4.5 Mcg [Symbicort 160-4.5 Mcg Inhaler] 2 puff INHALATION RT-BID #1 inh amLODIPine [Norvasc] 2.5 mg PO DAILY Furosemide [Lasix] 20 mg PO DAILY Discontinued LORazepam [Ativan] 0.5 mg PO BID Ibuprofen [Motrin] 400 mg PO TID PRN PRN Reason: Pain Losartan Potassium 100 mg PO DAILY Discharge Medication List HYDROcodone/APAP 7.5-325MG [[place] 7.5-325] 1 tab PO Q8H PRN 06/12/16 [History] Budesonide-Formot 160-4.5 Mcg [Symbicort 160-4.5 Mcg Inhaler] 2 puff INHALATION RT-BID #1 inh 02/23/17 [Rx] amLODIPine [Norvasc] 2.5 mg PO DAILY 04/29/17 [History] Furosemide [Lasix] 20 mg PO DAILY 07/08/17 [History] Albuterol Nebulized [Ventolin Nebulized] 2.5 mg INHALATION RT-QID #60 nebu 07/13 [Rx] Budesonide-Formot 160-4.5 Mcg [Symbicort 160-4.5 Mcg Inhaler] 2 puff INHALATION RT-BID #1 inhaler 07/13/17 [Rx] LORazepam [Ativan] 0.5 mg PO TID PRN #21 tab 07/13/17 [Rx] Levofloxacin [Levaquin] 500 mg PO DAILY 4 Days #4 tab 07/13/17 [Rx] Mag Hydrox/Al Hydrox/Simeth [Maalox] 30 ml PO Q8HR PRN #1 bottle 07/13/17 [Rx] predniSONE See Taper PO DAILY #45 tab 07/13/17 [Rx] Follow up Appointment(s)/Referral(s): Kristina Cornejo MD [Primary Care Provider] - 07/21/17 11:10 am Whitley Vang MD [STAFF PHYSICIAN] - 07/20/17 1:30 pm [facility] Visiting Nurse, [NON-STAFF] - Patient Instructions/Handouts: Influenza (GEN), COPD (Chronic Obstructive Pulmonary Disease) (DC) Activity/Diet/Wound Care/Special Instructions: Cardiac diet. Limited activity until follow up. Oxygen via nasal cannula to keep saturations above 96%. Discharge Disposition: HOME WITH HOME HEALTH SERVICES
== END 2017-07-13 18:56 | disposition home health service (06) | DRG 189 ==
LOC: EC 05:48 → 6SEL 06:59 → 6ICU 12:06 → 4MS4W 07-10 17:10
PROVIDERS: ADMIT Hospitalist; ATTEND Hospitalist
PROC: 5A09557 Assistance with Respiratory Ventilation, Greater than 96 Consecutive Hours, Continuous Positive Airway Pressure (ICD-10-PCS; principal; 2017-07-08)
DX: J96.21 Acute and chronic respiratory failure with hypoxia (principal); E87.2 Acidosis; R64 Cachexia; E44.0 Moderate protein-calorie malnutrition; I50.22 Chronic systolic (congestive) heart failure; J44.1 Chronic obstructive pulmonary disease with (acute) exacerbation; Q60.0 Renal agenesis, unilateral; I11.0 Hypertensive heart disease with heart failure; E78.00 Pure hypercholesterolemia, unspecified; J96.22 Acute and chronic respiratory failure with hypercapnia; E78.5 Hyperlipidemia, unspecified; G47.30 Sleep apnea, unspecified; H40.9 Unspecified glaucoma; I25.10 Atherosclerotic heart disease of native coronary artery without angina pectoris; I25.2 Old myocardial infarction; F17.200 Nicotine dependence, unspecified, uncomplicated; K21.9 Gastro-esophageal reflux disease without esophagitis; M47.9 Spondylosis, unspecified; F41.9 Anxiety disorder, unspecified; M19.90 Unspecified osteoarthritis, unspecified site; J10.1 Influenza due to other identified influenza virus with other respiratory manifestations; R91.1 Solitary pulmonary nodule; D72.829 Elevated white blood cell count, unspecified; K08.109 Complete loss of teeth, unspecified cause, unspecified class; R07.89 Other chest pain; Z68.1 Body mass index [BMI] 19.9 or less, adult; Z79.51 Long term (current) use of inhaled steroids; Z79.899 Other long term (current) drug therapy; Z79.52 Long term (current) use of systemic steroids; Z99.81 Dependence on supplemental oxygen; Z90.710 Acquired absence of both cervix and uterus; Z90.49 Acquired absence of other specified parts of digestive tract; Z87.11 Personal history of peptic ulcer disease; Z87.01 Personal history of pneumonia (recurrent); Z85.828 Personal history of other malignant neoplasm of skin; Z98.1 Arthrodesis status; Z98.42 Cataract extraction status, left eye; Z98.41 Cataract extraction status, right eye; Z96.1 Presence of intraocular lens; Z82.5 Family history of asthma and other chronic lower respiratory diseases; Z82.49 Family history of ischemic heart disease and other diseases of the circulatory system
CPT/HCPCS: 36415; 36600; 71045; 80048; 80053; 81003; 82550; 82553; 82803; 82805; 83036; 83605; 83735; 83880; 84100; 84484; 85025; 85379; 85610; 85730; 87502; 93005; 94640; 94660; 96374; 99285

== ENCOUNTER 2017-08-27 21:22 | Emergency (ER) | payer MEDICARE, OTHER ==
[2017-08-27] MEDS ORDERED: PANTOPRAZOLE 40 MG/10 ML VIAL IVP STA (21:38)
[2017-08-27] MEDS ORDERED: ONDANSETRON 4 MG/2 ML VIAL IVP STA (21:38)
[2017-08-27] MEDS ORDERED: SODIUM CHLORIDE 0.9% 500 ML IV STA (21:38)
--- NOTE | 2017-08-27 21:45 | ED ---
General Adult HPI - General Chief complaint: Abdominal Pain Stated complaint: back pain Time Seen by Provider: 08/27/17 21:30 Source: patient, RN notes reviewed Mode of arrival: EMS Limitations: no limitations - History of Present Illness Initial comments: This is a 67-year-old female who presents emergency Department complaining of chronic back pain. Patient states his been no recent injury or trauma. Patient states she ran out of her [place] a few days ago and therefore she's having a lot more pain. When I looked her up on the [employer] system patient just had 90 [place] filled 10 days ago. Patient also complains of some nausea and some epigastric abdominal pain. Patient denies any fever chills. Patient denies chest pain difficult breathing shortness of breath. Patient denies any dysuria hematuria urinary frequency. Patient denies headache patient denies any numbness or weakness - Related Data Home Medications Medication Instructions Recorded Confirmed HYDROcodone/APAP 7.5-325MG [[place] 1 tab PO Q8H PRN 06/12/16 07/08/17 7.5-325] amLODIPine [Norvasc] 2.5 mg PO DAILY 04/29/17 07/08/17 Furosemide [Lasix] 20 mg PO DAILY 07/08/17 07/08/17 Previous Rx's Medication Instructions Recorded Budesonide-Formot 160-4.5 Mcg 2 puff INHALATION RT-BID #1 inh 02/23/17 [Symbicort 160-4.5 Mcg Inhaler] Albuterol Nebulized [Ventolin 2.5 mg INHALATION RT-QID #60 nebu 07/13/17 Nebulized] Budesonide-Formot 160-4.5 Mcg 2 puff INHALATION RT-BID #1 inhaler 07/13/17 [Symbicort 160-4.5 Mcg Inhaler] LORazepam [Ativan] 0.5 mg PO TID PRN #21 tab 07/13/17 Levofloxacin [Levaquin] 500 mg PO DAILY 4 Days #4 tab 07/13/17 Mag Hydrox/Al Hydrox/Simeth 30 ml PO Q8HR PRN #1 bottle 07/13/17 [Maalox] predniSONE See Taper PO DAILY #45 tab 07/13/17 Allergies Allergy/AdvReac Type Severity Reaction Status Date / Time No Known Allergies Allergy Verified 08/27/17 21:30 Review of Systems ROS Statement: Those systems with pertinent positive or pertinent negative responses have been documented in the HPI. ROS Other: All systems not noted in ROS Statement are negative. 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 Last Myocardial Infarction Date:: 2011? History of Any Multi-Drug Resistant Organisms: None Reported Past Surgical History: Appendectomy, Back Surgery, Bowel Resection, Section, Hysterectomy, Orthopedic Surgery Additional Past Surgical History / Comment(s): 10/28/15 anterior cervical decompression fusion C3-4,C4-5,C5-6 with NIM cord monitoring, BACK SURGERY lami / FUSION/discectomy, manolo CATARACT SURGERY, LASER EYE SURGERY FOR GLAUCOMA., RIGHT KNEE SURGERY(fx kneecap), cervical surgery and has bars and screws in the neck, bronchoscopy, EGD Past Anesthesia/Blood Transfusion Reactions: No Reported Reaction Past Psychological History: Anxiety Smoking Status: Former smoker Past Alcohol Use History: Daily Past Drug Use History: None Reported - Past Family History Mother Family Medical History: Myocardial Infarction (CT) Additional Family Medical History / Comment(s): Mother had a CT in her 50's Father Family Medical History: No Reported History Additional Family Medical History / Comment(s): FORM OLD AGE Brother(s) Family Medical History: Asthma, COPD Sister(s) Family Medical History: Asthma, COPD General Exam - General Exam Comments Initial Comments: GENERAL: Patient is well-developed and well-nourished. Patient is nontoxic and well- hydrated and is in mild distress. ENT: Neck is soft and supple. No significant lymphadenopathy is noted. Oropharynx is clear. Moist mucous membranes. Neck has full range of motion without eliciting any pain. EYES: The sclera were anicteric and conjunctiva were pink and moist. Extraocular movements were intact and pupils were equal round and reactive to light. Eyelids were unremarkable. PULMONARY: Unlabored respirations. Good breath sounds bilaterally. No audible rales rhonchi or wheezing was noted. CARDIOVASCULAR: There is a regular rate and rhythm without any murmurs gallops or rubs. ABDOMEN: Epigastric abdominal pain. No palpable organomegaly was noted. There is no palpable pulsatile mass. SKIN: Skin is clear with no lesions or rashes and otherwise unremarkable. NEUROLOGIC: Patient is alert and oriented x3. Cranial nerves II through XII are grossly intact. Motor and sensory are also intact. Normal speech, volume and content. Symmetrical smile. MUSCULOSKELETAL: Normal extremities with adequate strength and full range of motion. No lower extremity swelling or edema. No calf tenderness. LYMPHATICS: No significant lymphadenopathy is noted PSYCHIATRIC: Normal psychiatric evaluation. Limitations: no limitations Course Vital Signs 08/27/17 21:30 Temperature 97.3 F L Pulse Rate 105 H Respiratory 20 Rate Blood Pressure 174/88 O2 Sat by Pulse 97 Oximetry Medical Decision Making - Medical Decision Making Patient continued asked for pain medicine and told me she was out of her [place] as however when I did a maps patient had just been given [place] 10 days ago. - Lab Data Result diagrams: 08/27/17 21:57 08/27/17 21:57 Lab Results 08/27/17 08/27/17 Range/Units 21:57 21:57 WBC 13.9 H (3.8-10.6) k/uL RBC 4.60 (3.80-5.40) m/uL Hgb 13.2 (11.4-16.0) gm/dL Hct 39.1 (34.0-46.0) % MCV 85.0 (80.0-100.0) fL MCH 28.6 (25.0-35.0) pg MCHC 33.7 (31.0-37.0) g/dL RDW 16.9 H (11.5-15.5) % Plt Count 461 H (150-450) k/uL Neutrophils % 77 % Lymphocytes % 16 % Monocytes % 4 % Eosinophils % 1 % Basophils % 0 % Neutrophils # 10.7 H (1.3-7.7) k/uL Lymphocytes # 2.2 (1.0-4.8) k/uL Monocytes # 0.6 (0-1.0) k/uL Eosinophils # 0.2 (0-0.7) k/uL Basophils # 0.0 (0-0.2) k/uL Anisocytosis Slight Sodium 130 L (137-145) mmol/L Potassium 4.3 (3.5-5.1) mmol/L Chloride 92 L (98-107) mmol/L Carbon Dioxide 18 L (22-30) mmol/L Anion Gap 20 mmol/L BUN 16 (7-17) mg/dL Creatinine 0.60 (0.52-1.04) mg/dL Est GFR (CKD-EPI)AfAm >90 (>60 ml/min/1.73 sqM) Est GFR (CKD-EPI)NonAf >90 (>60 ml/min/1.73 sqM) Glucose 97 (74-99) mg/dL Calcium 9.6 (8.4-10.2) mg/dL Total Bilirubin 0.6 (0.2-1.3) mg/dL AST 33 (14-36) U/L ALT 26 (9-52) U/L Alkaline Phosphatase 87 (38-126) U/L Total Protein 7.6 (6.3-8.2) g/dL Albumin 4.7 (3.5-5.0) g/dL Amylase 42 (30-110) U/L Lipase 40 (23-300) U/L Salicylates <1.0 mg/dL Acetaminophen <10.0 ug/mL Disposition Clinical Impression: Chronic back pain, Drug-seeking behavior Disposition: HOME SELF-CARE Condition: Good Instructions: Chronic Back Pain (ED) Is patient prescribed a controlled substance at d/c from ED?: No Referrals: Kamran Carrero DO [Primary Care Provider] - 1-2 days Time of Disposition: 23:30
[2017-08-27 22:13] LABS: Anisocytosis Slight; Basophils % (A) 0 %; Eosinophils # (A) 0.2 k/uL (0-0.7); Eosinophils % (A) 1 %; HCT 39.1 % (34.0-46.0); HGB 13.2 gm/dL (11.4-16.0); Lymphocytes # (A) 2.2 k/uL (1.0-4.8); Lymphocytes % (A) 16 %; MCH 28.6 pg (25.0-35.0); MCHC 33.7 g/dL (31.0-37.0); Mean Platelet Volume 6.7; Monocytes # (A) 0.6 k/uL (0-1.0); Monocytes % (A) 4 %; Neutrophils # (A) 10.7 k/uL (1.3-7.7); Neutrophils % (A) 77 %; Platelet Count 461 k/uL (150-450); RDW 16.9 % (11.5-15.5); WBC 13.9 k/uL (3.8-10.6)
[2017-08-27 22:29] LABS: Acetaminophen <10.0 ug/mL; Amylase 42 U/L (30-110); Anion Gap 20 mmol/L; Calcium 9.6 mg/dL (8.4-10.2); Carbon Dioxide 18 mmol/L (22-30); Chloride 92 mmol/L (98-107); Glucose 97 mg/dL (74-99); Lipase 40 U/L (23-300); Salicylate <1.0 mg/dL; Sodium 130 mmol/L (137-145); Total Bilirubin 0.6 mg/dL (0.2-1.3)
[2017-08-27 22:39] LABS: Blood Urea Nitrogen 16 mg/dL (7-17); Potassium 4.3 mmol/L (3.5-5.1)
[2017-08-27 22:40] LABS: ALT 26 U/L (9-52); AST 33 U/L (14-36); Albumin 4.7 g/dL (3.5-5.0); Alkaline Phosphatase 87 U/L (38-126); Total Protein 7.6 g/dL (6.3-8.2)
--- NOTE | 2017-08-27 23:00 | XR ---
EXAMINATION TYPE: XR KUB DATE OF EXAM: 08/27/2017 COMPARISON: 05/22/2011 HISTORY: Abdominal pain TECHNIQUE: 2 views FINDINGS: Bowel gas pattern is normal. There is no sign of intestinal obstruction or pneumoperitoneum . There are posterior rods and screws fusing the lumbar spine from L4 to S1. Sacroiliac joints are in tact. There is atherosclerotic vascular calcification. Lung bases are clear. There are no pathologic calcifications over the kidneys. IMPRESSION: Nonacute abdomen. No adverse change compared to old exam.
--- NOTE | 2017-08-27 23:02 | XR ---
EXAMINATION TYPE: XR lumbar spine 2 or 3V DATE OF EXAM: 08/27/2017 COMPARISON: NONE HISTORY: Back pain TECHNIQUE: 3 views FINDINGS: There are rods and screws fusing posteriorly the lumbar spine from L4 to S1. Vertebra have fairly normal alignment. There is mild narrowing of the disc spaces. There is no compression fracture . There is spurring of the endplates. Sacroiliac joints are intact. IMPRESSION: Previous fusion surgery. Spondylotic changes. No fracture seen.
[2017-08-27 23:41] VITALS: BP 114/59; PULSE 89; RESP 18; TEMP 98
== END 2017-08-27 23:59 | disposition home or self-care (01) ==
LOC: EC 21:22
DX: M54.9 Dorsalgia, unspecified (principal); G89.29 Other chronic pain; Z76.5 Malingerer [conscious simulation]; R10.13 Epigastric pain; R11.0 Nausea; I10 Essential (primary) hypertension; I25.2 Old myocardial infarction; G47.30 Sleep apnea, unspecified; Z99.89 Dependence on other enabling machines and devices; Z85.828 Personal history of other malignant neoplasm of skin; Z90.49 Acquired absence of other specified parts of digestive tract; Z98.890 Other specified postprocedural states; Z87.891 Personal history of nicotine dependence; Z79.899 Other long term (current) drug therapy; Z98.1 Arthrodesis status
CPT/HCPCS: 36415; 80053; 82150; 83690; 85025; 83520 ×2; 72100; 74018; 99285; 96374; 96375; 96361 ×2; J2405; C9113

== ENCOUNTER 2017-08-30 18:04 | Emergency (ER) | payer MEDICARE, OTHER ==
[2017-08-30] MEDS ORDERED: IPRATROPIUM-ALBUTEROL 3 ML NEB INHALATION STA (18:34)
--- NOTE | 2017-08-30 18:42 | ED ---
SOB HPI - General Chief Complaint: Shortness of Breath Stated Complaint: SOB Time Seen by Provider: 08/30/17 18:10 Source: patient, EMS Mode of arrival: EMS Limitations: no limitations - History of Present Illness Initial Comments: 67-year-old female patient presents to the emergency department today for evaluation of increased shortness of breath. Patient has a history of COPD and does wear 5 L of oxygen at home. Patient states that over the last couple of hours she has had an increase in trouble breathing. Patient states that she did run out of oxygen on her oxygen tank. Patient called the ambulance, states that since she has been under oxygen she is feeling somewhat better. Patient denies any chest pain, cough, congestion, or sputum production. She denies any fevers or chills. She denies nausea or vomiting. Patient denies any recent rash , abdominal pain, diarrhea, constipation, numbness, tingling, dizziness, weakness, hematuria, dysuria, urinary urgency, urinary frequency, headache, visual changes, or any other complaints. She does have chronic back pain and is complaining of increased pain. - Related Data Home Medications Medication Instructions Recorded Confirmed amLODIPine [Norvasc] 2.5 mg PO DAILY 04/29/17 08/30/17 Ibuprofen [Motrin] 800 mg PO Q6H PRN 08/30/17 08/30/17 LORazepam [Ativan] 0.5 mg PO TID PRN 08/30/17 08/30/17 Loratadine [Claritin] 10 mg PO DAILY 08/30/17 08/30/17 Losartan Potassium 100 mg PO DAILY 08/30/17 08/30/17 Tiotropium 18 Mcg/Puff [Spiriva] 1 cap INHALATION RT-DAILY 08/30/17 08/30/17 Allergies Allergy/AdvReac Type Severity Reaction Status Date / Time No Known Allergies Allergy Verified 08/30/17 18:41 Review of Systems ROS Statement: Those systems with pertinent positive or pertinent negative responses have been documented in the HPI. ROS Other: All systems not noted in ROS Statement are negative. 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 Last Myocardial Infarction Date:: 2011? History of Any Multi-Drug Resistant Organisms: None Reported Past Surgical History: Appendectomy, Back Surgery, Bowel Resection, Section, Hysterectomy, Orthopedic Surgery Additional Past Surgical History / Comment(s): 10/28/15 anterior cervical decompression fusion C3-4,C4-5,C5-6 with NIM cord monitoring, BACK SURGERY lami / FUSION/discectomy, manolo CATARACT SURGERY, LASER EYE SURGERY FOR GLAUCOMA., RIGHT KNEE SURGERY(fx kneecap), cervical surgery and has bars and screws in the neck, bronchoscopy, EGD Past Anesthesia/Blood Transfusion Reactions: No Reported Reaction Past Psychological History: Anxiety Smoking Status: Former smoker Past Alcohol Use History: Daily Past Drug Use History: None Reported - Past Family History Mother Family Medical History: Myocardial Infarction (ME) Additional Family Medical History / Comment(s): Mother had a ME in her 50's Father Family Medical History: No Reported History Additional Family Medical History / Comment(s): FORM OLD AGE Brother(s) Family Medical History: Asthma, COPD Sister(s) Family Medical History: Asthma, COPD General Exam Limitations: no limitations General appearance: alert, in no apparent distress, other (This is a thin appearing adult female patient in no acute distress. Vital signs upon presentation are temperature 99.3F, pulse 113, respirations 20, blood pressure 129/87, pulse ox 100% on 5 L.) Eye exam: Present: normal appearance, PERRL, EOMI. Absent: scleral icterus, conjunctival injection, periorbital swelling ENT exam: Present: normal exam, normal oropharynx, mucous membranes moist Respiratory exam: Present: wheezes (That expiratory wheezing to all posterior lung reynolds.). Absent: respiratory distress, rales, rhonchi, stridor Cardiovascular Exam: Present: normal rhythm, tachycardia, normal heart sounds. Absent: systolic murmur, diastolic murmur, rubs, gallop, clicks GI/Abdominal exam: Present: soft, normal bowel sounds. Absent: distended, tenderness, guarding, rebound, rigid Neurological exam: Present: alert, oriented X3, CN II-XII intact Psychiatric exam: Present: normal affect, normal mood Skin exam: Present: warm, dry, intact, normal color. Absent: rash Course Vital Signs 08/30/17 08/30/17 08/30/17 18:10 18:51 19:05 Temperature 99.3 F Pulse Rate 113 H 104 H 104 H Respiratory 20 Rate Blood Pressure 129/87 O2 Sat by Pulse 100 Oximetry 08/30/17 08/30/17 08/30/17 19:20 20:19 21:52 Temperature Pulse Rate 99 102 H Respiratory 20 18 18 Rate Blood Pressure 136/74 139/75 O2 Sat by Pulse 98 100 Oximetry 08/30/17 22:05 Temperature 98.4 F Pulse Rate Respiratory Rate Blood Pressure O2 Sat by Pulse Oximetry Medical Decision Making - Medical Decision Making 67 year-old female patient presented to the emergency department today for evaluation of shortness of breath. Patient did report that her oxygen tank had been off for 2 hours prior to coming in and she does generally wear 5 L via nasal cannula. Physical examination was relatively unremarkable. Patient did have diffuse expiratory wheezing to all posterior lung reynolds. She does have a history of COPD. Labs reviewed and are unremarkable. Chest x-ray is clear. Patient will be discharged back home, we did ensure that she does have working oxygen tank at home she does have a new delivery tomorrow. Return parameters were discussed in detail. She verbalizes understanding and agrees with this plan. - Lab Data Result diagrams: 08/30/17 19:17 08/30/17 19:17 Lab Results 08/30/17 08/30/17 08/30/17 Range/Units 19:17 19:17 19:17 WBC 6.8 (3.8-10.6) k/uL RBC 4.19 (3.80-5.40) m/uL Hgb 12.0 (11.4-16.0) gm/dL Hct 36.2 (34.0-46.0) % MCV 86.2 (80.0-100.0) fL MCH 28.6 (25.0-35.0) pg MCHC 33.1 (31.0-37.0) g/dL RDW 16.8 H (11.5-15.5) % Plt Count 430 (150-450) k/uL Neutrophils % 73 % Lymphocytes % 20 % Monocytes % 5 % Eosinophils % 1 % Basophils % 0 % Neutrophils # 4.9 (1.3-7.7) k/uL Lymphocytes # 1.4 (1.0-4.8) k/uL Monocytes # 0.3 (0-1.0) k/uL Eosinophils # 0.1 (0-0.7) k/uL Basophils # 0.0 (0-0.2) k/uL Anisocytosis Slight PT 9.4 (9.0-12.0) sec INR 0.9 (<1.2) APTT 21.3 L (22.0-30.0) sec Sodium 132 L (137-145) mmol/L Potassium 3.5 (3.5-5.1) mmol/L Chloride 97 L (98-107) mmol/L Carbon Dioxide 25 (22-30) mmol/L Anion Gap 10 mmol/L BUN 6 L (7-17) mg/dL Creatinine 0.46 L (0.52-1.04) mg/dL Est GFR (CKD-EPI)AfAm >90 (>60 ml/min/1.73 sqM) Est GFR (CKD-EPI)NonAf >90 (>60 ml/min/1.73 sqM) Glucose 97 (74-99) mg/dL Calcium 9.1 (8.4-10.2) mg/dL Total Bilirubin 0.4 (0.2-1.3) mg/dL AST 17 (14-36) U/L ALT 24 (9-52) U/L Alkaline Phosphatase 88 (38-126) U/L Total Creatine Kinase (30-135) U/L CK-MB (CK-2) (0.0-2.4) ng/mL CK-MB (CK-2) Rel Index Troponin I (0.000-0.034) ng/mL Total Protein 6.0 L (6.3-8.2) g/dL Albumin 3.8 (3.5-5.0) g/dL 08/30/17 Range/Units 19:17 WBC (3.8-10.6) k/uL RBC (3.80-5.40) m/uL Hgb (11.4-16.0) gm/dL Hct (34.0-46.0) % MCV (80.0-100.0) fL MCH (25.0-35.0) pg MCHC (31.0-37.0) g/dL RDW (11.5-15.5) % Plt Count (150-450) k/uL Neutrophils % % Lymphocytes % % Monocytes % % Eosinophils % % Basophils % % Neutrophils # (1.3-7.7) k/uL Lymphocytes # (1.0-4.8) k/uL Monocytes # (0-1.0) k/uL Eosinophils # (0-0.7) k/uL Basophils # (0-0.2) k/uL Anisocytosis PT (9.0-12.0) sec INR (<1.2) APTT (22.0-30.0) sec Sodium (137-145) mmol/L Potassium (3.5-5.1) mmol/L Chloride (98-107) mmol/L Carbon Dioxide (22-30) mmol/L Anion Gap mmol/L BUN (7-17) mg/dL Creatinine (0.52-1.04) mg/dL Est GFR (CKD-EPI)AfAm (>60 ml/min/1.73 sqM) Est GFR (CKD-EPI)NonAf (>60 ml/min/1.73 sqM) Glucose (74-99) mg/dL Calcium (8.4-10.2) mg/dL Total Bilirubin (0.2-1.3) mg/dL AST (14-36) U/L ALT (9-52) U/L Alkaline Phosphatase (38-126) U/L Total Creatine Kinase 106 (30-135) U/L CK-MB (CK-2) 3.1 H* (0.0-2.4) ng/mL CK-MB (CK-2) Rel Index 2.9 Troponin I <0.012 (0.000-0.034) ng/mL Total Protein (6.3-8.2) g/dL Albumin (3.5-5.0) g/dL - Radiology Data Radiology results: report reviewed, image reviewed 2 view x-ray of the chest was obtained. Report was reviewed in its entirety. Impression by Dr. Arevalo shows COPD. Fibrotic changes and emphysema. No change compared to old exam. Disposition Clinical Impression: Shortness of breath Disposition: HOME SELF-CARE Condition: Good Instructions: Dyspnea (ED) Additional Instructions: Wear oxygen at all times. Return here immediately for any new, worsening, or concerning symptoms. Return here immediately for any new, worsening, or concerning symptoms. Is patient prescribed a controlled substance at d/c from ED?: No Referrals: Kristina Cornejo MD [Primary Care Provider] - 1-2 days Time of Disposition: 20:52
[2017-08-30 19:28] LABS: Anisocytosis Slight; Basophils % (A) 0 %; Eosinophils # (A) 0.1 k/uL (0-0.7); Eosinophils % (A) 1 %; HCT 36.2 % (34.0-46.0); Lymphocytes # (A) 1.4 k/uL (1.0-4.8); Lymphocytes % (A) 20 %; MCH 28.6 pg (25.0-35.0); MCHC 33.1 g/dL (31.0-37.0); MCV 86.2 fL (80.0-100.0); Mean Platelet Volume 6.4; Monocytes # (A) 0.3 k/uL (0-1.0); Monocytes % (A) 5 %; Neutrophils # (A) 4.9 k/uL (1.3-7.7); Neutrophils % (A) 73 %; Platelet Count 430 k/uL (150-450); RBC 4.19 m/uL (3.80-5.40); RDW 16.8 % (11.5-15.5); WBC 6.8 k/uL (3.8-10.6)
[2017-08-30 19:37] LABS: ALT 24 U/L (9-52); AST 17 U/L (14-36); Albumin 3.8 g/dL (3.5-5.0); Alkaline Phosphatase 88 U/L (38-126); Anion Gap 10 mmol/L; Blood Urea Nitrogen 6 mg/dL (7-17); Calcium 9.1 mg/dL (8.4-10.2); Carbon Dioxide 25 mmol/L (22-30); Chloride 97 mmol/L (98-107); Glucose 97 mg/dL (74-99); Potassium 3.5 mmol/L (3.5-5.1); Sodium 132 mmol/L (137-145); Total Bilirubin 0.4 mg/dL (0.2-1.3)
[2017-08-30 19:44] LABS: INR 0.9 (<1.2); Partial Thromboplastin Time 21.3 sec (22.0-30.0); Prothrombin Time 9.4 sec (9.0-12.0)
[2017-08-30 19:46] LABS: Creatine Kinase 106 U/L (30-135)
[2017-08-30 19:58] LABS: Troponin I <0.012 ng/mL (0.000-0.034)
[2017-08-30 20:02] LABS: Creatine Kinase MB 3.1 ng/mL (0.0-2.4)
--- NOTE | 2017-08-30 20:07 | XR ---
EXAMINATION TYPE: XR chest 2V DATE OF EXAM: 08/30/2017 COMPARISON: 08/04/2017 HISTORY: Short of breath TECHNIQUE: Frontal and lateral views of the chest are obtained. FINDINGS: There is no heart failure nor confluent pneumonic infiltrate. Heart size is normal. There are is no evidence of pleural effusion. There is some pulmonary emphysema and interstitial reticular density at the lung apices. There is retraction of the pulmonary indu. IMPRESSION: COPD. Fibrotic changes and emphysema. No change compared to old exam.
[2017-08-30] MEDS ORDERED: SODIUM CHLORIDE 0.9% 500 ML IV ONE (20:11)
[2017-08-30 20:20] VITALS: RESP 18
[2017-08-30 21:52] VITALS: BP 139/75; PULSE 102
[2017-08-30 22:06] VITALS: TEMP 98.4
== END 2017-08-30 22:05 | disposition home or self-care (01) ==
LOC: EC 18:04
DX: R06.02 Shortness of breath (principal); M54.9 Dorsalgia, unspecified; G89.29 Other chronic pain; J44.9 Chronic obstructive pulmonary disease, unspecified; I10 Essential (primary) hypertension; I25.2 Old myocardial infarction; G47.30 Sleep apnea, unspecified; Z99.89 Dependence on other enabling machines and devices; Z85.828 Personal history of other malignant neoplasm of skin; Z98.890 Other specified postprocedural states; Z87.891 Personal history of nicotine dependence; Z79.899 Other long term (current) drug therapy
CPT/HCPCS: 36415; 71046; 80053; 82550; 82553; 84484; 85025; 85610; 85730; 93005; 94640; 99285

== ENCOUNTER 2017-09-04 19:31 | Inpatient (IN) | payer MEDICARE, OTHER ==
[2017-09-04] MEDS ORDERED: methylPREDNISolone SOD SUCCI 125 MG/2 ML VIAL IV STA (19:56)
[2017-09-04] MEDS ORDERED: ALBUTEROL NEBULIZED 2.5 MG/3 ML INHALATION STA (19:56)
[2017-09-04] MEDS ORDERED: NITROGLYCERIN OINT 1 INCH/GM PACKET TOPICAL STA (19:58)
[2017-09-04] MEDS ORDERED: ASPIRIN 81 MG PO STA (19:58)
--- NOTE | 2017-09-04 19:58 | ED ---
General Adult HPI - General Chief complaint: Shortness of Breath Stated complaint: SOB Time Seen by Provider: 09/04/17 19:35 Source: patient, EMS, RN notes reviewed Mode of arrival: EMS Limitations: no limitations - History of Present Illness Initial comments: This is a 67-year-old female presents emergency Department complaining of difficulty breathing and chest pain since this morning. Patient states she continues to smoke. Patient states she has bad COPD. Patient denies any fever chills or cough. Patient denies palpitations. Patient states the chest pain does not radiate anywhere. Patient denies any diaphoretic episodes. Patient denies any nausea. Patient denied abdominal pain patient denies vomiting or diarrhea. Patient denies headache patient denies numbness weakness. Patient denies lightheadedness dizziness or near syncopal episode. - Related Data Home Medications Medication Instructions Recorded Confirmed amLODIPine [Norvasc] 2.5 mg PO DAILY 04/29/17 09/04/17 Ibuprofen [Motrin] 800 mg PO Q6H PRN 08/30/17 09/04/17 LORazepam [Ativan] 0.5 mg PO TID PRN 08/30/17 09/04/17 Loratadine [Claritin] 10 mg PO DAILY 08/30/17 09/04/17 Losartan Potassium 100 mg PO DAILY 08/30/17 09/04/17 Tiotropium 18 Mcg/Puff [Spiriva] 1 cap INHALATION RT-DAILY 08/30/17 09/04/17 Allergies Allergy/AdvReac Type Severity Reaction Status Date / Time No Known Allergies Allergy Verified 09/04/17 19:41 Review of Systems ROS Statement: Those systems with pertinent positive or pertinent negative responses have been documented in the HPI. ROS Other: All systems not noted in ROS Statement are negative. Past Medical History Past Medical History: Asthma, Cancer, COPD, Eye Disorder, GERD/Reflux, Hyperlipidemia, Hypertension, Myocardial Infarction (PR), Osteoarthritis (OA), Pneumonia, Respiratory Disorder, Sleep Apnea/CPAP/BIPAP Additional Past Medical History / Comment(s): Advanced oxygen-dependent COPD with chronic hypoxic respiratory failure and with multiple hospitalization for COPD exacerbations, chronic hypoxic respiratory failure with home O2 at 5L/NC, born with a single left kidney, previous PR, PUD, bilateral glaucoma, skin cancer, previous history of bowel obstruction, worked [employer] at the age of 7yrs, past L arm fx and R patellar fx with surgery, edentulous. Last Myocardial Infarction Date:: 2011? History of Any Multi-Drug Resistant Organisms: None Reported Past Surgical History: Appendectomy, Back Surgery, Bowel Resection, Section, Hysterectomy, Orthopedic Surgery Additional Past Surgical History / Comment(s): 10/28/15 anterior cervical decompression fusion C3-4,C4-5,C5-6 with NIM cord monitoring, BACK SURGERY lami / FUSION/discectomy, manolo CATARACT SURGERY, LASER EYE SURGERY FOR GLAUCOMA., RIGHT KNEE SURGERY(fx kneecap), cervical surgery and has bars and screws in the neck, bronchoscopy, EGD Past Anesthesia/Blood Transfusion Reactions: No Reported Reaction Past Psychological History: Anxiety Smoking Status: Former smoker Past Alcohol Use History: Daily Past Drug Use History: None Reported - Past Family History Mother Family Medical History: Myocardial Infarction (PR) Additional Family Medical History / Comment(s): Mother had a PR in her 50's Father Family Medical History: No Reported History Additional Family Medical History / Comment(s): FORM OLD AGE Brother(s) Family Medical History: Asthma, COPD Sister(s) Family Medical History: Asthma, COPD General Exam - General Exam Comments Initial Comments: GENERAL: Patient is well-developed and well-nourished. Patient is nontoxic and well- hydrated and is in moderate distress. ENT: Neck is soft and supple. No significant lymphadenopathy is noted. Oropharynx is clear. Moist mucous membranes. Neck has full range of motion without eliciting any pain. EYES: The sclera were anicteric and conjunctiva were pink and moist. Extraocular movements were intact and pupils were equal round and reactive to light. Eyelids were unremarkable. PULMONARY: Patient is diffusely wheezing. CARDIOVASCULAR: There is a regular rate and rhythm without any murmurs gallops or rubs. ABDOMEN: Soft and nontender with normal bowel sounds. No palpable organomegaly was noted. There is no palpable pulsatile mass. SKIN: Skin is clear with no lesions or rashes and otherwise unremarkable. NEUROLOGIC: Patient is alert and oriented x3. Cranial nerves II through XII are grossly intact. Motor and sensory are also intact. Normal speech, volume and content. Symmetrical smile. MUSCULOSKELETAL: Normal extremities with adequate strength and full range of motion. No lower extremity swelling or edema. No calf tenderness. LYMPHATICS: No significant lymphadenopathy is noted PSYCHIATRIC: Normal psychiatric evaluation. Normal interpersonal interactions appears functionally intact in deals appropriately with others. No signs of depression. No signs of anxiety. Limitations: no limitations Course Vital Signs 09/04/17 09/04/17 09/04/17 19:35 20:00 20:08 Temperature 98.1 F Pulse Rate 94 84 Respiratory 26 H 24 Rate Blood Pressure 154/104 O2 Sat by Pulse 99 Oximetry 09/04/17 09/04/17 09/04/17 20:25 20:40 20:41 Temperature Pulse Rate 84 88 87 Respiratory 18 Rate Blood Pressure 121/79 O2 Sat by Pulse 100 Oximetry Medical Decision Making - Medical Decision Making EKG shows a normal sinus rhythm at 85 bpm OH interval is 152 QRS is 98 QTC is 376 QTC is 447. Patient's EKG shows no ST segment elevation or depression no T- wave abnormalities are noted. Patient's chest x-ray shows COPD. I spoke with Dr. Espinoza he agreed to admit the patient admitted the patient continued albuterol steroids on the floor. - Lab Data Result diagrams: 09/04/17 20:03 09/04/17 20:00 Lab Results 09/04/17 09/04/17 09/04/17 Range/Units 20:00 20:00 20:00 WBC (3.8-10.6) k/uL RBC (3.80-5.40) m/uL Hgb (11.4-16.0) gm/dL Hct (34.0-46.0) % MCV (80.0-100.0) fL MCH (25.0-35.0) pg MCHC (31.0-37.0) g/dL RDW (11.5-15.5) % Plt Count (150-450) k/uL Neutrophils % % Lymphocytes % % Monocytes % % Eosinophils % % Basophils % % Neutrophils # (1.3-7.7) k/uL Lymphocytes # (1.0-4.8) k/uL Monocytes # (0-1.0) k/uL Eosinophils # (0-0.7) k/uL Basophils # (0-0.2) k/uL Anisocytosis PT 9.8 (9.0-12.0) sec INR 1.0 (<1.2) APTT 23.4 (22.0-30.0) sec Sodium 122 L (137-145) mmol/L Potassium 3.3 L (3.5-5.1) mmol/L Chloride 88 L (98-107) mmol/L Carbon Dioxide 23 (22-30) mmol/L Anion Gap 11 mmol/L BUN 7 (7-17) mg/dL Creatinine 0.47 L (0.52-1.04) mg/dL Est GFR (CKD-EPI)AfAm >90 (>60 ml/min/1.73 sqM) Est GFR (CKD-EPI)NonAf >90 (>60 ml/min/1.73 sqM) Glucose 105 H (74-99) mg/dL Calcium 9.0 (8.4-10.2) mg/dL Total Bilirubin 0.3 (0.2-1.3) mg/dL AST 15 (14-36) U/L ALT 27 (9-52) U/L Alkaline Phosphatase 91 (38-126) U/L Total Creatine Kinase 51 (30-135) U/L CK-MB (CK-2) 1.6 (0.0-2.4) ng/mL CK-MB (CK-2) Rel Index 3.1 Troponin I <0.012 (0.000-0.034) ng/mL Total Protein 5.8 L (6.3-8.2) g/dL Albumin 3.7 (3.5-5.0) g/dL 09/04/17 Range/Units 20:03 WBC 8.1 (3.8-10.6) k/uL RBC 4.05 (3.80-5.40) m/uL Hgb 11.5 (11.4-16.0) gm/dL Hct 34.2 (34.0-46.0) % MCV 84.3 (80.0-100.0) fL MCH 28.3 (25.0-35.0) pg MCHC 33.6 (31.0-37.0) g/dL RDW 16.5 H (11.5-15.5) % Plt Count 486 H (150-450) k/uL Neutrophils % 66 % Lymphocytes % 27 % Monocytes % 4 % Eosinophils % 2 % Basophils % 0 % Neutrophils # 5.3 (1.3-7.7) k/uL Lymphocytes # 2.1 (1.0-4.8) k/uL Monocytes # 0.3 (0-1.0) k/uL Eosinophils # 0.2 (0-0.7) k/uL Basophils # 0.0 (0-0.2) k/uL Anisocytosis Slight PT (9.0-12.0) sec INR (<1.2) APTT (22.0-30.0) sec Sodium (137-145) mmol/L Potassium (3.5-5.1) mmol/L Chloride (98-107) mmol/L Carbon Dioxide (22-30) mmol/L Anion Gap mmol/L BUN (7-17) mg/dL Creatinine (0.52-1.04) mg/dL Est GFR (CKD-EPI)AfAm (>60 ml/min/1.73 sqM) Est GFR (CKD-EPI)NonAf (>60 ml/min/1.73 sqM) Glucose (74-99) mg/dL Calcium (8.4-10.2) mg/dL Total Bilirubin (0.2-1.3) mg/dL AST (14-36) U/L ALT (9-52) U/L Alkaline Phosphatase (38-126) U/L Total Creatine Kinase (30-135) U/L CK-MB (CK-2) (0.0-2.4) ng/mL CK-MB (CK-2) Rel Index Troponin I (0.000-0.034) ng/mL Total Protein (6.3-8.2) g/dL Albumin (3.5-5.0) g/dL Disposition Clinical Impression: Chest pain, COPD with acute exacerbation Disposition: ADMITTED IP TO THIS HOSP Referrals: Kristina Cornejo MD [Primary Care Provider] - 1-2 days Time of Disposition: 21:39
[2017-09-04 20:15] LABS: Anisocytosis Slight; Basophils % (A) 0 %; Eosinophils # (A) 0.2 k/uL (0-0.7); Eosinophils % (A) 2 %; HCT 34.2 % (34.0-46.0); HGB 11.5 gm/dL (11.4-16.0); Lymphocytes # (A) 2.1 k/uL (1.0-4.8); Lymphocytes % (A) 27 %; MCH 28.3 pg (25.0-35.0); MCHC 33.6 g/dL (31.0-37.0); MCV 84.3 fL (80.0-100.0); Monocytes # (A) 0.3 k/uL (0-1.0); Monocytes % (A) 4 %; Neutrophils # (A) 5.3 k/uL (1.3-7.7); Neutrophils % (A) 66 %; Platelet Count 486 k/uL (150-450); RBC 4.05 m/uL (3.80-5.40); RDW 16.5 % (11.5-15.5); WBC 8.1 k/uL (3.8-10.6)
[2017-09-04 20:23] LABS: Partial Thromboplastin Time 23.4 sec (22.0-30.0); Prothrombin Time 9.8 sec (9.0-12.0)
[2017-09-04 20:25] LABS: ALT 27 U/L (9-52); AST 15 U/L (14-36); Albumin 3.7 g/dL (3.5-5.0); Alkaline Phosphatase 91 U/L (38-126); Anion Gap 11 mmol/L; Blood Urea Nitrogen 7 mg/dL (7-17); Carbon Dioxide 23 mmol/L (22-30); Chloride 88 mmol/L (98-107); Glucose 105 mg/dL (74-99); Potassium 3.3 mmol/L (3.5-5.1); Sodium 122 mmol/L (137-145); Total Bilirubin 0.3 mg/dL (0.2-1.3); Total Protein 5.8 g/dL (6.3-8.2)
[2017-09-04 20:36] LABS: Creatine Kinase 51 U/L (30-135)
[2017-09-04 20:49] LABS: Creatine Kinase MB 1.6 ng/mL (0.0-2.4); Troponin I <0.012 ng/mL (0.000-0.034)
--- NOTE | 2017-09-04 21:12 | XR ---
EXAMINATION: XR chest 2V DATE AND TIME: 09/04/2017 8:49 PM ORDERING PROVIDER: Antonio Steen MD CLINICAL INDICATION: difficulty breathing; history of COPD asthma TECHNIQUE: PA and lateral COMPARISON: 08/30/2017 DESCRIPTION: The hyperinflation, attenuation of upper lobe vasculature, cephalomigration of the indu, and increased AP dimension of the chest - are all redemonstrated architectural distortion changes of emphysema. The lungs appear similar to the prior study, without definite acute process. However, there is a line ar band of added opacity in the left lung base could represent developing bronchopneumonia if clinica lly supported. The pleural spaces are negative. The cardiac size is normal. The multiple thoracic spine compressions are redemonstrated, unchanged. The soft tissues are unremark able for acute findings. IMPRESSION: No definite acute process, although left lung base finding which could correlate with early developin g bronchopneumonia.
[2017-09-04] MEDS ORDERED: Potassium Replacement Protocol 1 EACH MISC MISCELLANE PRN (22:10)
[2017-09-04] MEDS ORDERED: ONDANSETRON 4 MG/2 ML VIAL IVP PRN (22:56)
[2017-09-04] MEDS ORDERED: MELATONIN 3 MG TABLET PO PRN (22:56)
[2017-09-04] MEDS: IPRATROPIUM-ALBUTEROL 3 ML NEB INHALATION PRN (23:55)
[2017-09-04] MEDS: LORazepam 0.5 MG TAB PO PRN (23:59)
[2017-09-04] MEDS: POTASSIUM CHLORIDE ER 20 MEQ TAB.ER PO SCH (23:59)
[2017-09-05] MEDS: methylPREDNISolone SOD SUCCI 125 MG/2 ML VIAL IV SCH ×4 (00:56→17:41)
[2017-09-05] MEDS: SODIUM CHLORIDE 0.9% 1,000 ML IV SCH ×2 (00:57→14:15)
[2017-09-05] MEDS: IPRATROPIUM-ALBUTEROL 3 ML NEB INHALATION PRN ×3 (03:39→12:09)
[2017-09-05] MEDS: NICOTINE 14MG/24HR PATCH TRANSDERM SCH ×2 (05:48→07:58)
[2017-09-05 05:56] LABS: Glucose,Whole Blood 231 mg/dL (75-99)
[2017-09-05] MEDS: POTASSIUM CHLORIDE ER 20 MEQ TAB.ER PO SCH (06:57)
[2017-09-05] MEDS: INSULIN ASPART 100 UNIT/ML 1 ML 10 ML VIAL SQ SCH ×4 (07:05→22:05)
[2017-09-05] MEDS: HEPARIN SODIUM,PORCINE 5,000 UNIT/ML 1 ML VIAL SQ SCH ×2 (07:58→20:42)
[2017-09-05] MEDS: PANTOPRAZOLE 40 MG/10 ML VIAL IVP SCH ×2 (07:58→20:42)
[2017-09-05 08:52] LABS: Anisocytosis Slight; Basophils % (A) 0 %; Eosinophils % (A) 0 %; HGB 10.4 gm/dL (11.4-16.0); Lymphocytes # (A) 0.5 k/uL (1.0-4.8); Lymphocytes % (A) 27 %; MCH 28.3 pg (25.0-35.0); MCHC 33.6 g/dL (31.0-37.0); MCV 84.2 fL (80.0-100.0); Mean Platelet Volume 6.5; Monocytes % (A) 2 %; Neutrophils # (A) 1.3 k/uL (1.3-7.7); Neutrophils % (A) 70 %; Platelet Count 461 k/uL (150-450); RBC 3.68 m/uL (3.80-5.40); RDW 16.4 % (11.5-15.5)
[2017-09-05 09:00] LABS: WBC 1.9 k/uL (3.8-10.6)
[2017-09-05 09:03] LABS: Anion Gap 10 mmol/L; Blood Urea Nitrogen 7 mg/dL (7-17); Calcium 8.9 mg/dL (8.4-10.2); Carbon Dioxide 22 mmol/L (22-30); Chloride 97 mmol/L (98-107); Glucose 135 mg/dL (74-99); Magnesium 1.6 mg/dL (1.6-2.3); Potassium 3.6 mmol/L (3.5-5.1); Sodium 129 mmol/L (137-145)
[2017-09-05 11:24] LABS: Glucose,Whole Blood 130 mg/dL (75-99)
--- NOTE | 2017-09-05 12:28 | P.CRDCN ---
History of Present Illness Consult date: 09/05/17 Requesting physician: Amelia Lujan Consult reason: chest pain Chief complaint: Shortness of breath and chest pain History of present illness: This is a 67-year-old female with history of COPD with home O2 use, hyperlipidemia, nicotine dependence, hypertension, sleep apnea, who presented to the hospital with symptoms of shortness of breath. She also complained of severe chest pain which she described as sharp poking stabbing chest pains that would come in her chest intermittently. For this reason a cardiology consultation was requested. Upon review of prior records, this is the third patient visits to the emergency room in the past few weeks, patient had apparently ran out of her [place] at home which she takes chronically, then she also apparently had some issues with her oxygen at home and was quite short of breath. Chest x-ray on admission here did not reveal any definite acute process. Possible early developing bronchopneumonia. EKG on admission here showed a normal sinus rhythm with LVH strain pattern. White blood cell count on admission 8.1, 1.9 this morning, hemoglobin 11.5, 10.4 this morning. Platelet count 461. Sodium 129, 122 on admission, potassium 3.3 on admission, 3.6 this morning. BUN 7, creatinine 0.34. Troponins negative 3. Magnesium 1.6. At the time of my examination this morning, patient states she only has pain when she takes a very deep breath or when she coughs. Patient did have an echocardiogram with Doppler study performed in May of this year which revealed an ejection fraction of 45-50%. Past Medical History Past Medical History: Asthma, Cancer, Chest Pain / Angina, COPD, Eye Disorder, GERD/Reflux, Hyperlipidemia, Hypertension, Myocardial Infarction ([place]), Osteoarthritis (OA), Pneumonia, Respiratory Disorder, Sleep Apnea/CPAP/BIPAP Additional Past Medical History / Comment(s): Advanced oxygen-dependent COPD with chronic hypoxic respiratory failure and with multiple hospitalization for COPD exacerbations, chronic hypoxic respiratory failure with home O2 at 5L/[place], born with a single left kidney, previous [place], PUD, bilateral glaucoma, skin cancer, previous history of bowel obstruction, 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 Last Myocardial Infarction Date:: 2011? History of Any Multi-Drug Resistant Organisms: None Reported Past Surgical History: Appendectomy, Back Surgery, Bowel Resection, Section, Hysterectomy, Orthopedic Surgery Additional Past Surgical History / Comment(s): 10/28/15 anterior cervical decompression fusion C3-4,C4-5,C5-6 with NIM cord monitoring, BACK SURGERY lami / FUSION/discectomy, manolo CATARACT SURGERY, LASER EYE SURGERY FOR GLAUCOMA., RIGHT KNEE SURGERY(fx kneecap), cervical surgery and has bars and screws in the neck, bronchoscopy, EGD Past Anesthesia/Blood Transfusion Reactions: No Reported Reaction Smoking Status: Former smoker - Past Family History Mother Family Medical History: Myocardial Infarction ([place]) Additional Family Medical History / Comment(s): Mother had a [place] in her 50's Father Family Medical History: No Reported History Additional Family Medical History / Comment(s): FORM OLD AGE Brother(s) Family Medical History: Asthma, COPD Sister(s) Family Medical History: Asthma, COPD Medications and Allergies Home Medications Medication Instructions Recorded Confirmed Type amLODIPine [Norvasc] 2.5 mg PO DAILY 04/29/17 09/05/17 History Ibuprofen [Motrin] 800 mg PO Q6H PRN 08/30/17 09/05/17 History LORazepam [Ativan] 0.5 mg PO TID PRN 08/30/17 09/05/17 History Loratadine [Claritin] 10 mg PO DAILY 08/30/17 09/05/17 History Losartan Potassium 100 mg PO DAILY 08/30/17 09/05/17 History Tiotropium 18 Mcg/Puff [Spiriva] 1 cap INHALATION RT-DAILY 08/30/17 09/05/17 History Allergies Allergy/AdvReac Type Severity Reaction Status Date / Time No Known Allergies Allergy Verified 09/05/17 08:58 Physical Exam Vitals: Vital Signs Temp Pulse Pulse Resp BP BP BP 09/05/17 11:18 98.2 F 89 20 122/69 09/05/17 08:42 80 09/05/17 08:29 80 09/05/17 08:00 96.9 F L 88 20 129/60 09/05/17 04:15 97.8 F 83 19 123/62 09/05/17 04:02 83 09/05/17 03:40 79 09/05/17 00:59 85 09/04/17 23:57 83 09/04/17 23:15 24 05/28/18 23:10 97.2 F L 89 22 131/65 09/04/17 21:42 92 24 147/70 09/04/17 20:41 87 18 121/79 09/04/17 20:40 88 09/04/17 20:25 84 09/04/17 20:08 84 09/04/17 20:00 24 09/04/17 19:35 98.1 F 94 26 H 154/104 Pulse Ox 09/05/17 11:18 99 09/05/17 08:42 09/05/17 08:29 09/05/17 08:00 98 09/05/17 04:15 100 09/05/17 04:02 09/05/17 03:40 09/05/17 00:59 09/04/17 23:57 09/04/17 23:15 09/04/17 23:10 99 09/04/17 21:42 96 09/04/17 20:41 100 09/04/17 20:40 09/04/17 20:25 09/04/17 20:08 09/04/17 20:00 09/04/17 19:35 99 Intake and Output 09/04/17 09/05/17 09/05/17 22:59 06:59 14:59 Output Total 350 Balance -350 Output: Urine 350 Other: Voiding Method Bedside Commode Bedside Commode # Voids 1 Weight 34.019 kg 36 kg 36 kg PHYSICAL EXAMINATION: GENERAL: This is a frail-appearing, malnourished 67-year-old female HEENT: Head is atraumatic, normocephalic. Pupils equal, round. Sclera anicteric. Conjunctiva are clear. Mucous membranes of the mouth are moist. Neck is supple. There is no elevated jugular venous pressure.] bruit is heard. HEART EXAMINATION: Heart S1, S2 normal. No murmur or gallop heard. CHEST EXAMINATION: Lungs reveal diffuse rhonchi and wheezing throughout. ABDOMEN: Soft, nontender. Bowel sounds are heard. No organomegaly noted. EXTREMITIES: 2+ peripheral pulses with no evidence of peripheral edema and no calf tenderness noted. NEUROLOGIC patient is awake, alert and oriented -3. . Results 09/05/17 08:19 09/05/17 08:19 Cardiac Enzymes 09/04/17 09/04/17 09/05/17 Range/Units 20:00 20:00 01:55 AST 15 (14-36) U/L CK-MB (CK-2) 1.6 (0.0-2.4) ng/mL Troponin I <0.012 <0.012 (0.000-0.034) ng/mL 09/05/17 Range/Units 08:19 AST (14-36) U/L CK-MB (CK-2) (0.0-2.4) ng/mL Troponin I <0.012 (0.000-0.034) ng/mL Coagulation 09/04/17 Range/Units 20:00 PT 9.8 (9.0-12.0) sec APTT 23.4 (22.0-30.0) sec CBC 09/04/17 09/05/17 Range/Units 20:03 08:19 WBC 8.1 1.9 L* (3.8-10.6) k/uL RBC 4.05 3.68 L (3.80-5.40) m/uL Hgb 11.5 10.4 L (11.4-16.0) gm/dL Hct 34.2 31.0 L (34.0-46.0) % Plt Count 486 H 461 H (150-450) k/uL Comprehensive Metabolic Panel 09/04/17 09/05/17 Range/Units 20:00 08:19 Sodium 122 L 129 L (137-145) mmol/L Potassium 3.3 L 3.6 (3.5-5.1) mmol/L Chloride 88 L 97 L (98-107) mmol/L Carbon Dioxide 23 22 (22-30) mmol/L BUN 7 7 (7-17) mg/dL Creatinine 0.47 L 0.34 L (0.52-1.04) mg/dL Glucose 105 H 135 H (74-99) mg/dL Calcium 9.0 8.9 (8.4-10.2) mg/dL AST 15 (14-36) U/L ALT 27 (9-52) U/L Alkaline Phosphatase 91 (38-126) U/L Total Protein 5.8 L (6.3-8.2) g/dL Albumin 3.7 (3.5-5.0) g/dL Current Medications Generic Name Dose Route Start Last Admin Trade Name Freq PRN Reason Stop Dose Admin Albuterol/Ipratropium 3 ml 09/04/17 21:39 09/05/17 08:29 Duoneb 0.5 Mg-3 Mg/3 Ml Soln INHALATION 3 ml RT-Q4H PRN Administration Shortness Of Breath Or Wheezing Heparin Sodium (Porcine) 5,000 unit 09/05/17 09:00 09/05/17 07:58 Heparin SQ 5,000 unit Q12HR LAURA Administration Sodium Chloride 1,000 mls @ 50 mls/hr 09/04/17 23:00 09/05/17 00:57 Saline 0.9% IV 50 mls/hr .Q20H LAURA Administration Insulin Aspart 0 unit 09/05/17 07:30 09/05/17 07:05 Novolog SQ 8 unit ACHS LAURA Administration Protocol Lorazepam 0.5 mg 09/04/17 22:56 09/04/17 23:59 Ativan PO 0.5 mg TID PRN Administration Anxiety Melatonin 6 mg 09/04/17 22:56 Melatonin PO HS PRN Insomnia Methylprednisolone Sodium Succinate 60 mg 09/05/17 01:00 09/05/17 11:17 Solu-Medrol IV 60 mg Q6HR LAURA Administration Miscellaneous Information 1 each 09/04/17 22:10 Potassium Per Protocol MISCELLANE DAILY PRN Per Protocol Protocol Nicotine 1 patch 09/04/17 23:00 09/05/17 07:58 Habitrol 14mg/24hr Patch TRANSDERM Not Given DAILY LAURA Ondansetron HCl 4 mg 09/04/17 22:56 Zofran IVP Q6HR PRN Nausea And Vomiting Pantoprazole Sodium 40 mg 09/05/17 09:00 09/05/17 07:58 Protonix IVP 40 mg BID LAURA Administration Intake and Output 09/04/17 09/05/17 09/05/17 22:59 06:59 14:59 Output Total 350 Balance -350 Output: Urine 350 Other: Voiding Method Bedside Commode Bedside Commode # Voids 1 Weight 34.019 kg 36 kg 36 kg Patient Weight 09/06/17 06:59 Weight 36 kg 09/05/17 08:19 09/05/17 08:19 EKG Interpretations (text) EKG shows normal sinus rhythm with changes of LVH strain pattern. Assessment and Plan Plan: Assessment and plan #1 chest pain atypical for acute coronary syndrome. Troponins negative 3. EKG shows normal sinus rhythm with LVH strain pattern #2 end-stage COPD on home O2 #3 hypertension #4 hyperlipidemia #5 nicotine dependence #6 sleep apnea Plan Patient did have an echo performed in May of this year which revealed an ejection fraction of 45-50%. Her pain is very atypical for acute coronary syndrome. We would recommend the patient be treated for COPD exacerbation, we' ll discontinue the Nitropaste. Further recommendations to follow. DNP note has been reviewed, I agree with a documented findings and plan of care. Patient was seen and examined.
--- NOTE | 2017-09-05 13:27 | P.CNPUL ---
History of Present Illness Consult date: 09/05/17 Requesting physician: Amelia Lujan Reason for consult: dyspnea, COPD Chief complaint: Shortness of breath, chest pain History of present illness: This a very pleasant 67 her old female patient who follows with Dr. Cornejo as her primary care physician. She has a history of hyperlipidemia, hypertension, gastroesophageal reflux disease, anorexia/cachexia syndrome, chronic tobacco dependence, coronary artery disease, congestive heart failure, preserved left ventricular systolic function 45-50% ejection fraction. She does have severe advanced oxygen-dependent chronic obstructive pulmonary disease, Gold stage IV. She does have a BiPAP machine at home for hypercapnic respiratory failure. She presented here again yesterday with complaints of increasing shortness of breath, cough and congestion. She's had multiple admissions for COPD exacerbations. She is currently on the BiPAP 10/5 and 40% FiO2 to maintain O2 saturations in the low 90s. Chest x-ray reveals no acute pulmonary process. White count 1.9. Hemoglobin 10.4. Sodium 129. Creatinine 0.34. She has been initiated on bronchodilators, IV Solu-Medrol. She is seen today in consultation on the selective care unit. She is awake and alert in no acute distress. She has been mainly BiPAP dependent since admission in the interim she is tolerating 5 L/m per nasal cannula. She's been afebrile. Hemodynamically stable. Review of Systems Eyes: denies blurred vision, denies decreased vision Ears: deny: decreased hearing Ears, nose, mouth and throat: Denies headache, Denies sore throat Cardiovascular: Reports chest pain, Reports decreased exercise tolerance, Reports dyspnea on exertion, Reports shortness of breath Respiratory: Reports congestion, Reports dyspnea, Reports home oxygen, Reports wheezing Gastrointestinal: Reports loss of appetite Genitourinary: Denies dysuria, Denies hematuria Musculoskeletal: Reports gait dysfunction, Reports morning stiffness, Reports myalgias Integumentary: Reports color changes Neurological: Reports weakness Psychiatric: Reports anxiety Endocrine: Denies fatigue, Denies weight change Hematologic/Lymphatic: Reports easy bruising Allergic/Immunologic: Reports as per HPI Past Medical History Past Medical History: Asthma, Cancer, Chest Pain / Angina, COPD, Eye Disorder, GERD/Reflux, Hyperlipidemia, Hypertension, Myocardial Infarction ([place]), Osteoarthritis ([place]), Pneumonia, Respiratory Disorder, Sleep Apnea/CPAP/BIPAP Additional Past Medical History / Comment(s): Advanced oxygen-dependent COPD with chronic hypoxic respiratory failure and with multiple hospitalization for COPD exacerbations, chronic hypoxic respiratory failure with home O2 at 5L/[place], born with a single left kidney, previous [place], PUD, bilateral glaucoma, skin cancer, previous history of bowel obstruction, 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 Last Myocardial Infarction Date:: 2011? History of Any Multi-Drug Resistant Organisms: None Reported Past Surgical History: Appendectomy, Back Surgery, Bowel Resection, Section, Hysterectomy, Orthopedic Surgery Additional Past Surgical History / Comment(s): 10/28/15 anterior cervical decompression fusion C3-4,C4-5,C5-6 with NIM cord monitoring, BACK SURGERY lami / FUSION/discectomy, manolo CATARACT SURGERY, LASER EYE SURGERY FOR GLAUCOMA., RIGHT KNEE SURGERY(fx kneecap), cervical surgery and has bars and screws in the neck, bronchoscopy, EGD Past Anesthesia/Blood Transfusion Reactions: No Reported Reaction Smoking Status: Former smoker - Past Family History Mother Family Medical History: Myocardial Infarction ([place]) Additional Family Medical History / Comment(s): Mother had a [place] in her 50's Father Family Medical History: No Reported History Additional Family Medical History / Comment(s): FORM OLD AGE Brother(s) Family Medical History: Asthma, COPD Sister(s) Family Medical History: Asthma, COPD Medications and Allergies Home Medications Medication Instructions Recorded Confirmed Type amLODIPine [Norvasc] 2.5 mg PO DAILY 04/29/17 09/05/17 History Ibuprofen [Motrin] 800 mg PO Q6H PRN 08/30/17 09/05/17 History LORazepam [Ativan] 0.5 mg PO TID PRN 08/30/17 09/05/17 History Loratadine [Claritin] 10 mg PO DAILY 08/30/17 09/05/17 History Losartan Potassium 100 mg PO DAILY 08/30/17 09/05/17 History Tiotropium 18 Mcg/Puff [Spiriva] 1 cap INHALATION RT-DAILY 08/30/17 09/05/17 History Allergies Allergy/AdvReac Type Severity Reaction Status Date / Time No Known Allergies Allergy Verified 09/05/17 08:58 Physical Exam Vitals: Vital Signs Temp Pulse Pulse Resp BP BP BP 09/05/17 12:22 84 09/05/17 12:09 80 09/05/17 11:18 98.2 F 89 20 122/69 09/05/17 08:42 80 09/05/17 08:29 80 09/05/17 08:00 96.9 F L 88 20 129/60 09/05/17 04:15 97.8 F 83 19 123/62 09/05/17 04:02 83 09/05/17 03:40 79 09/05/17 00:59 85 09/04/17 23:57 83 09/04/17 23:15 24 09/04/17 23:10 97.2 F L 89 22 131/65 09/04/17 21:42 92 24 147/70 09/04/17 20:41 87 18 121/79 09/04/17 20:40 88 09/04/17 20:25 84 09/04/17 20:08 84 09/04/17 20:00 24 09/04/17 19:35 98.1 F 94 26 H 154/104 Pulse Ox 09/05/17 12:22 09/05/17 12:09 09/05/17 11:18 99 09/05/17 08:42 09/05/17 08:29 09/05/17 08:00 98 09/05/17 04:15 100 09/05/17 04:02 09/05/17 03:40 09/05/17 00:59 09/04/17 23:57 09/04/17 23:15 09/04/17 23:10 99 09/04/17 21:42 96 09/04/17 20:41 100 09/04/17 20:40 09/04/17 20:25 09/04/17 20:08 09/04/17 20:00 09/04/17 19:35 99 Intake and Output 09/04/17 09/05/17 09/05/17 22:59 06:59 14:59 Intake Total 222 Output Total 350 700 Balance -350 -478 Intake: Oral 222 Output: Urine 350 700 Other: Voiding Method Bedside Commode Bedside Commode # Voids 1 Weight 34.019 kg 36 kg 36 kg GENERAL EXAM: Frail, cachectic. Mild respiratory distress. HEAD: Normocephalic. EYES: Normal reaction of pupils, equal size. NOSE: Clear with pink turbinates. THROAT: No erythema or exudates. NECK: No masses, no JVD. CHEST: No chest wall deformity. LUNGS: Equal air entry with bilateral end expiratory wheeze. Diminished throughout. CVS: S1 and S2 normal with no audible murmur, regular rhythm. ABDOMEN: No hepatosplenomegaly, normal bowel sounds, no guarding or rigidity. SPINE: Kyphoscoliosis SKIN: No rashes. ecchymosis. CENTRAL NERVOUS SYSTEM: No focal deficits, tone is normal in all 4 extremities. EXTREMITIES: There is no peripheral edema. No clubbing, no cyanosis. Peripheral pulses are intact. Results - Laboratory Findings CBC and BMP: 09/05/17 08:19 09/05/17 08:19 PT/INR, D-dimer PT 9.8 sec (9.0-12.0) 09/04/17 20:00 INR 1.0 (<1.2) 09/04/17 20:00 Abnormal lab findings: Abnormal Labs 09/04/17 09/04/17 09/05/17 20:00 20:03 05:55 WBC RBC Hgb Hct RDW 16.5 H Plt Count 486 H Lymphocytes # Sodium 122 L Potassium 3.3 L Chloride 88 L Creatinine 0.47 L Glucose 105 H POC Glucose (mg/dL) 231 H Total Protein 5.8 L 09/05/17 09/05/17 09/05/17 08:19 08:19 11:22 WBC 1.9 L* RBC 3.68 L Hgb 10.4 L Hct 31.0 L RDW 16.4 H Plt Count 461 H Lymphocytes # 0.5 L Sodium 129 L Potassium Chloride 97 L Creatinine 0.34 L Glucose 135 H POC Glucose (mg/dL) 130 H Total Protein - Diagnostic Findings Chest x-ray: image reviewed Assessment and Plan Assessment: Impression: #1 Acute on chronic hypoxic respiratory failure secondary to an acute exacerbation of severe Gold stage for chronic obstructive pulmonary disease. #2 Acute on chronic hypercapnic respiratory failure secondary to above. BiPAP dependent. #3 Chronic tobacco dependence. #4 Anorexia/cachexia syndrome. #5 Hypertension. #6 Hyperlipidemia. #7 History of coronary artery disease. #8 Mild cardiomyopathy with an ejection fraction of 45-50%. #9 Poor overall functional performance based on the above-mentioned multiple comorbidities. Plan: The patient was seen and evaluated by Dr. Vang. We will continue with intermittent BiPAP support currently at 10/5 and 40% FiO2 with alternating nasal cannula as tolerated. We'll add increase her bronchodilators to 4 times a day and when necessary. Add Pulmicort and Perforomist inhalations twice a day. Continue with IV Solu-Medrol. We will repeat her CBC in the a.m. White count drop was noted but no other signs of overwhelming sepsis. Empiric antibiotics in the form of azithromycin. Heparin for DVT prophylaxis. Protonix for GI prophylaxis. She is again educated regarding the importance of complete smoking cessation. Habitrol patch is in place. We will continue to follow and make further recommendations based on her clinical status. I, the cosigning physician, performed a history & physical examination of the patient. Lungs sounds with bilateral end expiratory wheeze. Diminished throughout.. Maintaining good O2 saturations in the 90s on BiPAP 10/5 and 40% FiO2. I discussed the assessment and plan of care with my nurse practitioner, Modesta Colon. I attest to the above consultation as dictated by her. Time with Patient: Greater than 30
[2017-09-05] MEDS: AZITHROMYCIN 500 MG TAB PO SCH (14:15)
[2017-09-05] MEDS: IPRATROPIUM-ALBUTEROL 3 ML NEB INHALATION SCH ×2 (15:50→20:02)
--- NOTE | 2017-09-05 15:53 | P.HPIM ---
History of Present Illness 67-year-old female with history of advanced to goal stage IV COPD came in with complaints of chest pain which is nonspecific reproducible 4/10 in severity constant was evaluated by cardiology, patient's EKG did not show any significant abnormality troponins were negative. Patient is presently on BiPAP patient use normally uses 5 L of onset at home was complaining of some shortness of breath does have advanced COPD does have easy multiple hospitalizations secondary to COPD. Patient is presently on IV Solu-Medrol pulmonology evaluated the patient patient does not appear to have pneumonia on the chest x-ray. Patient denied any fever chills. Review of Systems REVIEW OF SYSTEMS: CONSTITUTIONAL: No fever, no malaise, no fatigue. HEENT: No recent visual problems or hearing problems. Denied any sore throat. CARDIOVASCULAR: No orthopnea, PND, no palpitations, no syncope. PULMONARY: no hemoptysis. GASTROINTESTINAL: No diarrhea, no nausea, no vomiting, no abdominal pain. Normoactive bowel sounds. NEUROLOGICAL: No headaches, no weakness, no numbness. HEMATOLOGICAL: Denies any bleeding or petechiae. GENITOURINARY: Denies any burning micturition, frequency, or urgency. MUSCULOSKELETAL/RHEUMATOLOGICAL: Denies any joint pain, swelling, or any muscle pain. ENDOCRINE: Denies any polyuria or polydipsia. The rest of the 14-point review of systems is negative. Past Medical History Past Medical History: Asthma, Cancer, Chest Pain / Angina, COPD, Eye Disorder, GERD/Reflux, Hyperlipidemia, Hypertension, Myocardial Infarction (GA), Osteoarthritis (OA), Pneumonia, Respiratory Disorder, Sleep Apnea/CPAP/BIPAP Additional Past Medical History / Comment(s): Advanced oxygen-dependent COPD with chronic hypoxic respiratory failure and with multiple hospitalization for COPD exacerbations, chronic hypoxic respiratory failure with home O2 at 5L/NC, born with a single left kidney, previous GA, PUD, bilateral glaucoma, skin cancer, previous history of bowel obstruction, 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 Last Myocardial Infarction Date:: 2011? History of Any Multi-Drug Resistant Organisms: None Reported Past Surgical History: Appendectomy, Back Surgery, Bowel Resection, Section, Hysterectomy, Orthopedic Surgery Additional Past Surgical History / Comment(s): 10/28/15 anterior cervical decompression fusion C3-4,C4-5,C5-6 with NIM cord monitoring, BACK SURGERY lami / FUSION/discectomy, manolo CATARACT SURGERY, LASER EYE SURGERY FOR GLAUCOMA., RIGHT KNEE SURGERY(fx kneecap), cervical surgery and has bars and screws in the neck, bronchoscopy, EGD Past Anesthesia/Blood Transfusion Reactions: No Reported Reaction Smoking Status: Former smoker - Past Family History Mother Family Medical History: Myocardial Infarction (GA) Additional Family Medical History / Comment(s): Mother had a GA in her 50's Father Family Medical History: No Reported History Additional Family Medical History / Comment(s): FORM OLD AGE Brother(s) Family Medical History: Asthma, COPD Sister(s) Family Medical History: Asthma, COPD Medications and Allergies Home Medications Medication Instructions Recorded Confirmed Type amLODIPine [Norvasc] 2.5 mg PO DAILY 04/29/17 09/05/17 History Ibuprofen [Motrin] 800 mg PO Q6H PRN 08/30/17 09/05/17 History LORazepam [Ativan] 0.5 mg PO TID PRN 08/30/17 09/05/17 History Loratadine [Claritin] 10 mg PO DAILY 08/30/17 09/05/17 History Losartan Potassium 100 mg PO DAILY 08/30/17 09/05/17 History Tiotropium 18 Mcg/Puff [Spiriva] 1 cap INHALATION RT-DAILY 08/30/17 09/05/17 History Allergies Allergy/AdvReac Type Severity Reaction Status Date / Time No Known Allergies Allergy Verified 09/05/17 08:58 Physical Exam Vitals: Vital Signs Temp Pulse Pulse Resp BP BP BP 09/05/17 15:23 97.7 F 101 H 20 142/69 09/05/17 12:22 84 09/05/17 12:09 80 09/05/17 11:18 98.2 F 89 20 122/69 09/05/17 08:42 80 09/05/17 08:29 80 09/05/17 08:00 96.9 F L 88 20 129/60 09/05/17 04:15 97.8 F 83 19 123/62 09/05/17 04:02 83 09/05/17 03:40 79 09/05/17 00:59 85 09/04/17 23:57 83 09/04/17 23:15 24 09/04/17 23:10 97.2 F L 89 22 131/65 09/04/17 21:42 92 24 147/70 09/04/17 20:41 87 18 121/79 09/04/17 20:40 88 09/04/17 20:25 84 09/04/17 20:08 84 09/04/17 20:00 24 09/04/17 19:35 98.1 F 94 26 H 154/104 Pulse Ox 09/05/17 15:23 99 09/05/17 12:22 09/05/17 12:09 09/05/17 11:18 99 09/05/17 08:42 09/05/17 08:29 09/05/17 08:00 98 09/05/17 04:15 100 09/05/17 04:02 09/05/17 03:40 09/05/17 00:59 09/04/17 23:57 09/04/17 23:15 09/04/17 23:10 99 09/04/17 21:42 96 09/04/17 20:41 100 09/04/17 20:40 09/04/17 20:25 09/04/17 20:08 09/04/17 20:00 09/04/17 19:35 99 Intake and Output 09/05/17 09/05/17 09/05/17 06:59 14:59 22:59 Intake Total 222 Output Total 350 700 Balance -350 478 Intake: Oral 222 Output: Urine 350 700 Other: Voiding Method Bedside Commode Bedside Commode # Voids 1 Weight 36 kg 36 kg PHYSICAL EXAMINATION: GENERAL: The patient is alert and oriented x3, not in any acute distress. Thin built cachectic HEENT: Pupils are round and equally reacting to light. EOMI. No scleral icterus. No conjunctival pallor. Normocephalic, atraumatic. No pharyngeal erythema. No thyromegaly. CARDIOVASCULAR: S1 and S2 present. No murmurs, rubs, or gallops. PULMONARY: Significant expiratory wheezing or crackles were appreciated patient is on BiPAP now ABDOMEN: Soft, nontender, nondistended, normoactive bowel sounds. No palpable organomegaly. MUSCULOSKELETAL: No joint swelling or deformity. EXTREMITIES: No cyanosis, clubbing, or pedal edema. NEUROLOGICAL: Gross neurological examination did not reveal any focal deficits. SKIN: No rashes. Results CBC & Chem 7: 09/05/17 08:19 09/05/17 08:19 Labs: Abnormal Lab Results - Last 24 Hours (Table) 09/04/17 09/04/17 09/05/17 Range/Units 20:00 20:03 05:55 WBC (3.8-10.6) k/uL RBC (3.80-5.40) m/uL Hgb (11.4-16.0) gm/dL Hct (34.0-46.0) % RDW 16.5 H (11.5-15.5) % Plt Count 486 H (150-450) k/uL Lymphocytes # (1.0-4.8) k/uL Sodium 122 L (137-145) mmol/L Potassium 3.3 L (3.5-5.1) mmol/L Chloride 88 L (98-107) mmol/L Creatinine 0.47 L (0.52-1.04) mg/dL Glucose 105 H (74-99) mg/dL POC Glucose (mg/dL) 231 H (75-99) mg/dL Total Protein 5.8 L (6.3-8.2) g/dL 09/05/17 09/05/17 09/05/17 Range/Units 08:19 08:19 11:22 WBC 1.9 L* (3.8-10.6) k/uL RBC 3.68 L (3.80-5.40) m/uL Hgb 10.4 L (11.4-16.0) gm/dL Hct 31.0 L (34.0-46.0) % RDW 16.4 H (11.5-15.5) % Plt Count 461 H (150-450) k/uL Lymphocytes # 0.5 L (1.0-4.8) k/uL Sodium 129 L (137-145) mmol/L Potassium (3.5-5.1) mmol/L Chloride 97 L (98-107) mmol/L Creatinine 0.34 L (0.52-1.04) mg/dL Glucose 135 H (74-99) mg/dL POC Glucose (mg/dL) 130 H (75-99) mg/dL Total Protein (6.3-8.2) g/dL Thrombosis Risk Factor Assmnt - Choose All That Apply Any of the Below Risk Factors Present?: Yes Each Factor Represents 1 point: Abnormal pulmonary function (COPD) Other Risk Factors: Yes Each Risk Factor Represents 2 Points: Age 61-74 years Other congenital or acquired thrombophilia - If yes, enter type in comment: No Thrombosis Risk Factor Assessment Total Risk Factor Score: 3 Thrombosis Risk Factor Assessment Level: Moderate Risk Assessment and Plan Plan: -Chest pain: Weight ruled out acute Kylah syndromes was evaluated by cardiology patient the appears to have musculoskeletal chest pain. -Acute on chronic hypercapnic respiratory failure secondary to COPD with acute exacerbation. Patient on systemic steroids which will be continued patient clinically or radiologically does not appear to have pneumonia at this time. 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 -Hypervolemic hyponatremia IV fluids at 75 mL/h repeat basic metabolic profile tomorrow -Cachexia [id number] protein calorie evaluation secondary to COPD. -Hypertension -Hyperlipidemia -Coronary artery disease
--- NOTE | 2017-09-05 16:05 | ECHOF ---
Referral Reason:chest pain MEASUREMENTS -------- HEIGHT: 154.9 cm WEIGHT: 36.1 kg BP: 122/69 RVIDd: 2.4 cm (< 3.3) IVSd: 1.1 cm (0.6 - 1.1) LVIDd: 4.1 cm (3.9 - 5.3) LVPWd: 1.1 cm (0.6 - 1.1) IVSs: 1.3 cm LVIDs: 3.0 cm LVPWs: 1.4 cm LA Diam: 2.9 cm (2.7 - 3.8) LAESV Index (A-L): 18.14 ml/m Ao Diam: 3.2 cm (2.0 - 3.7) AV Cusp: 1.7 cm (1.5 - 2.6) MV EXCURSION: 15.228 mm (> 18.000) MV EF SLOPE: 38 mm/s (70 - 150) EPSS: 1.0 cm MV E Torsten: 0.71 m/s MV DecT: 160 ms MV A Torsten: 0.85 m/s MV E/A Ratio: 0.83 RAP: 5.00 mmHg RVSP: 18.61 mmHg FINDINGS -------- Sinus rhythm. This was a technically adequate study. The left ventricular size is normal. There is borderline concentric left ventricular hypertrophy. Overall left ventricular systolic function is normal with, an EF between 55 - 60 %. The right ventricle is normal in size. Normal LA size by volume 22+/-6 ml/m2. The right atrium is normal in size. There is mild aortic valve sclerosis. The mitral valve is normal. Trace tricuspid regurgitation present. Right ventricular systolic pressure is normal at < 35 mmHg. The pulmonic valve was not well visualized. The aortic root size is normal. Normal inferior vena cava with normal inspiratory collapse consistent with estimated right atrial pre ssure of 5 mmHg. There is no pericardial effusion. CONCLUSIONS -------- 1. Sinus rhythm. 2. This was a technically adequate study. 3. The left ventricular size is normal. 4. There is borderline concentric left ventricular hypertrophy. 5. Overall left ventricular systolic function is normal with, an EF between 55 - 60 %. 6. The right ventricle is normal in size. 7. Normal LA size by volume 22+/-6 ml/m2. 8. The right atrium is normal in size. 9. There is mild aortic valve sclerosis. 10. The mitral valve is normal. 11. Trace tricuspid regurgitation present. 12. Right ventricular systolic pressure is normal at < 35 mmHg. 13. The pulmonic valve was not well visualized. 14. The aortic root size is normal. 15. Normal inferior vena cava with normal inspiratory collapse consistent with estimated right atrial pressure of 5 mmHg. 16. There is no pericardial effusion. SERVICE CLERK: Remedios Martinez RDCS
[2017-09-05 16:24] LABS: Glucose,Whole Blood 229 mg/dL (75-99)
[2017-09-05] MEDS: LORazepam 0.5 MG TAB PO PRN (17:40)
[2017-09-05] MEDS: BUDESONIDE 1 MG/2 ML NEBU INHALATION SCH (20:02)
[2017-09-05] MEDS: FORMOTEROL FUMARATE 20 MCG/2 ML NEBU INHALATION SCH (20:02)
[2017-09-05] MEDS: FAMOTIDINE 20 MG TAB PO SCH (20:42)
[2017-09-05 21:02] LABS: Glucose,Whole Blood 191 mg/dL (75-99)
[2017-09-05] MEDS: HYDROcodone/APAP 7.5-325MG 1 EACH TAB PO PRN (22:59)
[2017-09-06] MEDS: IPRATROPIUM-ALBUTEROL 3 ML NEB INHALATION SCH ×6 (01:16→20:16)
[2017-09-06] MEDS: methylPREDNISolone SOD SUCCI 125 MG/2 ML VIAL IV SCH ×5 (03:02→23:59)
[2017-09-06] MEDS: SODIUM CHLORIDE 0.9% 1,000 ML IV SCH ×3 (03:10→23:58)
[2017-09-06 05:53] LABS: Glucose,Whole Blood 170 mg/dL (75-99)
[2017-09-06 06:14] LABS: Anisocytosis Slight; HCT 29.5 % (34.0-46.0); HGB 9.6 gm/dL (11.4-16.0); MCH 28.3 pg (25.0-35.0); MCHC 32.7 g/dL (31.0-37.0); MCV 86.8 fL (80.0-100.0); Mean Platelet Volume 6.7; Platelet Count 424 k/uL (150-450); RDW 16.3 % (11.5-15.5); WBC 9.3 k/uL (3.8-10.6)
[2017-09-06 06:37] LABS: Anion Gap 8 mmol/L; Blood Urea Nitrogen 7 mg/dL (7-17); Calcium 8.6 mg/dL (8.4-10.2); Carbon Dioxide 23 mmol/L (22-30); Chloride 100 mmol/L (98-107); Glucose 131 mg/dL (74-99); Sodium 131 mmol/L (137-145)
[2017-09-06] MEDS: INSULIN ASPART 100 UNIT/ML 1 ML 10 ML VIAL SQ SCH ×4 (06:45→21:48)
[2017-09-06] MEDS: FORMOTEROL FUMARATE 20 MCG/2 ML NEBU INHALATION SCH ×2 (08:34→20:16)
[2017-09-06] MEDS: BUDESONIDE 1 MG/2 ML NEBU INHALATION SCH ×2 (08:34→20:16)
[2017-09-06] MEDS: PANTOPRAZOLE 40 MG/10 ML VIAL IVP SCH ×2 (09:10→20:56)
[2017-09-06] MEDS: AZITHROMYCIN 500 MG TAB PO SCH (09:10)
[2017-09-06] MEDS: FAMOTIDINE 20 MG TAB PO SCH (09:10)
[2017-09-06] MEDS: NICOTINE 14MG/24HR PATCH TRANSDERM SCH (09:11)
[2017-09-06 11:21] LABS: Glucose,Whole Blood 193 mg/dL (75-99)
[2017-09-06] MEDS: HEPARIN SODIUM,PORCINE 5,000 UNIT/ML 1 ML VIAL SQ SCH ×2 (12:13→20:56)
[2017-09-06] MEDS: LORazepam 0.5 MG TAB PO PRN ×2 (12:16→20:53)
--- NOTE | 2017-09-06 14:47 | P.PN ---
Subjective Progress Note Date: 09/06/17 This is a 67-year-old female with history of COPD with home O2 use, hyperlipidemia, nicotine dependence, hypertension, sleep apnea, who presented to the hospital with symptoms of shortness of breath. She also complained of severe chest pain which she described as sharp poking stabbing chest pains that would come in her chest intermittently. For this reason a cardiology consultation was requested. Upon review of prior records, this is the third patient visits to the emergency room in the past few weeks, patient had apparently ran out of her [employer] at home which she takes chronically, then she also apparently had some issues with her oxygen at home and was quite short of breath. Chest x-ray on admission here did not reveal any definite acute process. Possible early developing bronchopneumonia. EKG on admission here showed a normal sinus rhythm with LVH strain pattern. White blood cell count on admission 8.1, 1.9 this morning, hemoglobin 11.5, 10.4 this morning. Platelet count 461. Sodium 129, 122 on admission, potassium 3.3 on admission, 3.6 this morning. BUN 7, creatinine 0.34. Troponins negative 3. Magnesium 1.6. At the time of my examination this morning, patient states she only has pain when she takes a very deep breath or when she coughs. Patient did have an echocardiogram with Doppler study performed in May of this year which revealed an ejection fraction of 45-50%. 09/06/2017 Patient was seen and examined this morning, breathing is significantly improved , echocardiogram with Doppler study was performed which revealed a normal left ventricular systolic function. Hemodynamically stable. Objective - Vital Signs Vital signs: Vital Signs Temp 97.2 F L 09/06/17 12:00 Pulse 100 09/06/17 12:11 Resp 22 09/06/17 12:00 BP 145/71 09/06/17 12:00 Pulse Ox 100 09/06/17 12:00 Intake & Output 09/05/17 09/06/17 09/06/17 18:59 06:59 18:59 Intake Total 342 480 Output Total 700 500 650 Balance -358 -500 -170 Weight 36 kg 32 kg Intake: Oral 342 480 Output: Urine 700 500 650 Other: Voiding Method Bedside Commode Bedside Commode Bedside Commode # Voids 1 - Exam PHYSICAL EXAMINATION: GENERAL: This is a frail-appearing, malnourished 67-year-old female HEENT: Head is atraumatic, normocephalic. Pupils equal, round. Sclera anicteric. Conjunctiva are clear. Mucous membranes of the mouth are moist. Neck is supple. There is no elevated jugular venous pressure.] bruit is heard. HEART EXAMINATION: Heart S1, S2 normal. No murmur or gallop heard. CHEST EXAMINATION: Lungs reveal diffuse rhonchi and wheezing throughout. ABDOMEN: Soft, nontender. Bowel sounds are heard. No organomegaly noted. EXTREMITIES: 2+ peripheral pulses with no evidence of peripheral edema and no calf tenderness noted. NEUROLOGIC patient is awake, alert and oriented -3. . - Labs CBC & Chem 7: 09/06/17 05:45 09/06/17 05:45 Labs: Abnormal Lab Results - Last 24 Hours (Table) 09/05/17 09/05/17 09/06/17 Range/Units 16:19 21:00 05:45 RBC 3.40 L (3.80-5.40) m/uL Hgb 9.6 L (11.4-16.0) gm/dL Hct 29.5 L (34.0-46.0) % RDW 16.3 H (11.5-15.5) % Sodium (137-145) mmol/L Creatinine (0.52-1.04) mg/dL Glucose (74-99) mg/dL POC Glucose (mg/dL) 229 H 191 H (75-99) mg/dL 09/06/17 09/06/17 09/06/17 Range/Units 05:45 05:52 11:19 RBC (3.80-5.40) m/uL Hgb (11.4-16.0) gm/dL Hct (34.0-46.0) % RDW (11.5-15.5) % Sodium 131 L (137-145) mmol/L Creatinine 0.37 L (0.52-1.04) mg/dL Glucose 131 H (74-99) mg/dL POC Glucose (mg/dL) 170 H 193 H (75-99) mg/dL Assessment and Plan Plan: Assessment and plan #1 chest pain atypical for acute coronary syndrome. Troponins negative 3. EKG shows normal sinus rhythm with LVH strain pattern #2 end-stage COPD on home O2 #3 hypertension #4 hyperlipidemia #5 nicotine dependence #6 sleep apnea Plan Echocardiogram with Doppler study was performed which revealed an ejection fraction of 55-60%. From cardiology's perspective, we'll follow this patient with you now on an as-needed basis only, please don't hesitate to call with any questions. We do recommend she follow-up in the office as an outpatient to have outpatient stress testing performed on the road. DNP note has been reviewed, I agree with a documented findings and plan of care. Patient was seen and examined.
--- NOTE | 2017-09-06 14:48 | P.PN ---
Subjective Progress Note Date: 09/06/17 This a very pleasant 67 her old female patient who follows with Dr. Cornejo as her primary care physician. She has a history of hyperlipidemia, hypertension, gastroesophageal reflux disease, anorexia/cachexia syndrome, chronic tobacco dependence, coronary artery disease, congestive heart failure, preserved left ventricular systolic function 45-50% ejection fraction. She does have severe advanced oxygen-dependent chronic obstructive pulmonary disease, Gold stage IV. She does have a BiPAP machine at home for hypercapnic respiratory failure. She presented here again yesterday with complaints of increasing shortness of breath, cough and congestion. She's had multiple admissions for COPD exacerbations. She is currently on the BiPAP 10/5 and 40% FiO2 to maintain O2 saturations in the low 90s. Chest x-ray reveals no acute pulmonary process. White count 1.9. Hemoglobin 10.4. Sodium 129. Creatinine 0.34. She has been initiated on bronchodilators, IV Solu-Medrol. She is seen today in consultation on the selective care unit. She is awake and alert in no acute distress. She has been mainly BiPAP dependent since admission in the interim she is tolerating 5 L/m per nasal cannula. She's been afebrile. Hemodynamically stable. On 09/06/2017, the patient is being seen for a follow-up in the patient is doing well. The patient has no specific complaints. She feels her breathing is gradually improving. She was using the BiPAP on and off throughout the night and she seems to be using it more than the usual. Minimal congestion. No significant sputum production. No chest pain. No angina. She has increased back pain. No nausea. No vomiting. No altered mentation. She remains on a combination of bronchodilators and steroids. She has a home ventilator in the form of a AV APS machine. She claims that she has not smoked for several months. No other significant issues over the past 24 hours. The patient remains on a combination of Zithromax and IV Solu-Medrol and 1 otherwise treatments around the clock. She is on IV fluids at 75 mL an hour that needs to be cut down to KVO. She is also on a combination of Perforomist and Pulmicort neb last 2 minutes twice a day. Objective - Vital Signs Vital signs: Vital Signs Temp 97.2 F L 09/06/17 12:00 Pulse 100 09/06/17 12:11 Resp 22 09/06/17 12:00 BP 145/71 09/06/17 12:00 Pulse Ox 100 09/06/17 12:00 Intake & Output 09/05/17 09/06/17 09/06/17 18:59 06:59 18:59 Intake Total 342 480 Output Total 700 500 650 Balance -358 -500 -170 Weight 36 kg 32 kg Intake: Oral 342 480 Output: Urine 700 500 650 Other: Voiding Method Bedside Commode Bedside Commode Bedside Commode # Voids 1 - Exam GENERAL EXAM: Frail, cachectic. Mild respiratory distress. HEAD: Normocephalic. EYES: Normal reaction of pupils, equal size. NOSE: Clear with pink turbinates. THROAT: No erythema or exudates. NECK: No masses, no JVD. CHEST: No chest wall deformity. LUNGS: Equal air entry with bilateral end expiratory wheeze. Diminished throughout. CVS: S1 and S2 normal with no audible murmur, regular rhythm. ABDOMEN: No hepatosplenomegaly, normal bowel sounds, no guarding or rigidity. SPINE: Kyphoscoliosis SKIN: No rashes. ecchymosis. CENTRAL NERVOUS SYSTEM: No focal deficits, tone is normal in all 4 extremities. EXTREMITIES: There is no peripheral edema. No clubbing, no cyanosis. Peripheral pulses are intact. - Labs CBC & Chem 7: 09/06/17 05:45 09/06/17 05:45 Labs: Abnormal Lab Results - Last 24 Hours (Table) 09/05/17 09/05/17 09/06/17 Range/Units 16:19 21:00 05:45 RBC 3.40 L (3.80-5.40) m/uL Hgb 9.6 L (11.4-16.0) gm/dL Hct 29.5 L (34.0-46.0) % RDW 16.3 H (11.5-15.5) % Sodium (137-145) mmol/L Creatinine (0.52-1.04) mg/dL Glucose (74-99) mg/dL POC Glucose (mg/dL) 229 H 191 H (75-99) mg/dL 09/06/17 09/06/17 09/06/17 Range/Units 05:45 05:52 11:19 RBC (3.80-5.40) m/uL Hgb (11.4-16.0) gm/dL Hct (34.0-46.0) % RDW (11.5-15.5) % Sodium 131 L (137-145) mmol/L Creatinine 0.37 L (0.52-1.04) mg/dL Glucose 131 H (74-99) mg/dL POC Glucose (mg/dL) 170 H 193 H (75-99) mg/dL Assessment and Plan Plan: Impression: #1 Acute on chronic hypoxic respiratory failure secondary to an acute exacerbation of severe Gold stage 4 . This is another admission or COPD exacerbation. Chest x-ray was reviewed and shows no acute abnormalities and there are some chronic changes related to COPD and scarring in the upper lobes bilaterally. The patient is feeling slightly better compared to yesterday. Continue the treatment for 24 hours regarding her COPD exacerbation and acute on top of chronic respiratory failure. She is using BiPAP on and off during the day. She is using the BiPAP continuously at nighttime. She claims that she has quit smoking. #2 Acute on chronic hypercapnic respiratory failure secondary to above. BiPAP dependent. #3 Chronic tobacco dependence. #4 Anorexia/cachexia syndrome. #5 Hypertension. #6 Hyperlipidemia. #7 History of coronary artery disease. #8 Mild cardiomyopathy with an ejection fraction of 45-50%. #9 Poor overall functional performance based on the above-mentioned multiple comorbidities. Plan Continue same treatment for another 24 hours. Kept on IV fluids to KVO. Continue bronchodilators. Continue steroids. Continue antibiotics. Increased mobility as tolerated. Possible discharge in next 24-48 hours. Long-term prognosis poor baseline above-mentioned comorbidities.
[2017-09-06 16:28] LABS: Glucose,Whole Blood 132 mg/dL (75-99)
--- NOTE | 2017-09-06 17:07 | P.PN ---
Subjective Patient was admitted for atypical chest pain, cardiology evaluated the patient patient is also being treated for COPD exacerbation patient has advanced COPD on and off for BiPAP patient uses 5 L of oxygen at home. Pulmonology is recommending one more day of hospitalization Constitutional: Denied any fatigue denied any fever. Cardio vascular: denied any chest pain, palpitations Gastrointestinal denied any nausea vomiting Pulmonary: Denied any shortness of breath cough Neurologic denied any new focal deficits Objective - Vital Signs Vital signs: Vital Signs Temp 97.9 F 09/06/17 16:00 Pulse 102 H 09/06/17 16:36 Resp 20 09/06/17 16:00 BP 152/65 09/06/17 16:00 Pulse Ox 99 09/06/17 16:00 Intake & Output 09/05/17 09/06/17 09/06/17 18:59 06:59 18:59 Intake Total 342 480 Output Total 700 500 650 Balance -358 -500 -170 Weight 36 kg 32 kg Intake: Oral 342 480 Output: Urine 700 500 650 Other: Voiding Method Bedside Commode Bedside Commode Bedside Commode # Voids 1 - Exam PHYSICAL EXAMINATION: GENERAL: The patient is alert and oriented x3, not in any acute distress. Thin built cachectic HEENT: Pupils are round and equally reacting to light. EOMI. No scleral icterus. No conjunctival pallor. Normocephalic, atraumatic. No pharyngeal erythema. No thyromegaly. CARDIOVASCULAR: S1 and S2 present. No murmurs, rubs, or gallops. PULMONARY: Significant expiratory wheezing or crackles were appreciated patient is on BiPAP now ABDOMEN: Soft, nontender, nondistended, normoactive bowel sounds. No palpable organomegaly. MUSCULOSKELETAL: No joint swelling or deformity. EXTREMITIES: No cyanosis, clubbing, or pedal edema. NEUROLOGICAL: Gross neurological examination did not reveal any focal deficits. SKIN: No rashes. - Labs CBC & Chem 7: 09/06/17 05:45 09/06/17 05:45 Labs: Abnormal Lab Results - Last 24 Hours (Table) 09/05/17 09/06/17 09/06/17 Range/Units 21:00 05:45 05:45 RBC 3.40 L (3.80-5.40) m/uL Hgb 9.6 L (11.4-16.0) gm/dL Hct 29.5 L (34.0-46.0) % RDW 16.3 H (11.5-15.5) % Sodium 131 L (137-145) mmol/L Creatinine 0.37 L (0.52-1.04) mg/dL Glucose 131 H (74-99) mg/dL POC Glucose (mg/dL) 191 H (75-99) mg/dL 09/06/17 09/06/17 09/06/17 Range/Units 05:52 11:19 16:24 RBC (3.80-5.40) m/uL Hgb (11.4-16.0) gm/dL Hct (34.0-46.0) % RDW (11.5-15.5) % Sodium (137-145) mmol/L Creatinine (0.52-1.04) mg/dL Glucose (74-99) mg/dL POC Glucose (mg/dL) 170 H 193 H 132 H (75-99) mg/dL Assessment and Plan Plan: -Chest pain: Weight ruled out acute coronary syndromes was evaluated by cardiology patient the appears to have musculoskeletal chest pain. -Acute on chronic hypercapnic respiratory failure secondary to COPD with acute exacerbation. Patient on systemic steroids which will be continued patient clinically or radiologically does not appear to have pneumonia at this time. 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 -Hypervolemic hyponatremia IV fluids at 75 mL/h repeat basic metabolic profile tomorrow -Cachexia [id number] protein calorie evaluation secondary to COPD. -Hypertension -Hyperlipidemia -Coronary artery disease
[2017-09-06] MEDS: HYDROcodone/APAP 7.5-325MG 1 EACH TAB PO PRN (20:53)
[2017-09-06 21:10] LABS: Glucose,Whole Blood 173 mg/dL (75-99)
[2017-09-07] MEDS ORDERED: methylPREDNISolone SOD SUCCI 125 MG/2 ML VIAL ONE
[2017-09-07] MEDS ORDERED: IPRATROPIUM-ALBUTEROL 3 ML NEB ONE
[2017-09-07] MEDS: IPRATROPIUM-ALBUTEROL 3 ML NEB INHALATION SCH ×5 (00:36→15:34)
[2017-09-07 05:55] LABS: Glucose,Whole Blood 100 mg/dL (75-99)
[2017-09-07] MEDS: INSULIN ASPART 100 UNIT/ML 1 ML 10 ML VIAL SQ SCH ×2 (06:10→12:38)
[2017-09-07] MEDS: methylPREDNISolone SOD SUCCI 125 MG/2 ML VIAL IV SCH ×2 (06:10→11:10)
[2017-09-07 06:17] VITALS: RESP 16
[2017-09-07] MEDS: FORMOTEROL FUMARATE 20 MCG/2 ML NEBU INHALATION SCH (07:10)
[2017-09-07] MEDS: BUDESONIDE 1 MG/2 ML NEBU INHALATION SCH (07:10)
[2017-09-07] MEDS: LORazepam 0.5 MG TAB PO PRN (07:31)
[2017-09-07] MEDS: AZITHROMYCIN 500 MG TAB PO SCH (07:54)
[2017-09-07] MEDS: PANTOPRAZOLE 40 MG/10 ML VIAL IVP SCH (08:00)
[2017-09-07] MEDS: HEPARIN SODIUM,PORCINE 5,000 UNIT/ML 1 ML VIAL SQ SCH (08:00)
[2017-09-07] MEDS: NICOTINE 14MG/24HR PATCH TRANSDERM SCH (08:00)
[2017-09-07 10:00] VITALS: BMI 11.4
[2017-09-07 11:18] VITALS: BP 125/72; PULSE 95; TEMP 96.6
[2017-09-07 11:47] LABS: Glucose,Whole Blood 95 mg/dL (75-99)
--- NOTE | 2017-09-07 13:42 | P.DS ---
Providers Date of admission: 09/04/17 21:39 Attending physician: Amelia Lujan Consults: 09/05/17 02:23 Consult Physician Routine Consulting Provider: Mat Bailey Consult Reason/Comments: chest pain Do you want consulting provider notified?: Yes, Notify in am 09/05/17 02:24 Consult Physician Routine Consulting Provider: Kamran Carrero Consult Reason/Comments: copd exaerbation Do you want consulting provider notified?: Yes, Notify in am Primary care physician: Chantal Zayas [facility] Course: Patient was admitted for atypical chest pain, cardiology evaluated the patient patient is also being treated for COPD exacerbation patient has advanced COPD on and off for BiPAP patient uses 5 L of oxygen at home. Pulmonology cleared her for discharge patient is still wheezing which is her baseline patient uses BiPAP on as-needed basis at home as well. PHYSICAL EXAMINATION: GENERAL: The patient is alert and oriented x3, not in any acute distress. Thin built cachectic HEENT: Pupils are round and equally reacting to light. EOMI. No scleral icterus. No conjunctival pallor. Normocephalic, atraumatic. No pharyngeal erythema. No thyromegaly. CARDIOVASCULAR: S1 and S2 present. No murmurs, rubs, or gallops. PULMONARY: Significant expiratory wheezing or crackles were appreciated patient is on BiPAP now ABDOMEN: Soft, nontender, nondistended, normoactive bowel sounds. No palpable organomegaly. MUSCULOSKELETAL: No joint swelling or deformity. EXTREMITIES: No cyanosis, clubbing, or pedal edema. NEUROLOGICAL: Gross neurological examination did not reveal any focal deficits. SKIN: No rashes. Assessment and Plan Plan: -Chest pain: Weight ruled out acute coronary syndromes was evaluated by cardiology patient the appears to have musculoskeletal chest pain. -Acute on chronic hypercapnic respiratory failure secondary to COPD with acute exacerbation. Patient on systemic steroids which will be continued patient clinically or radiologically does not appear to have pneumonia at this time. 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 -Hypertension: Patient was hypotensive discontinued her amlodipine and lisinopril patient blood pressures remain low normal in spite of holding these medications during this hospitalization -Hyperlipidemia -Coronary artery disease Plan - Discharge Summary Discharge Rx Participant: No New Discharge Prescriptions: New Albuterol Sulfate [Proair Hfa] 2 puff INHALATION Q6HR PRN #1 inhaler PRN Reason: Wheezing predniSONE 10 mg PO DAILY #30 tab Ranitidine HCl [Zantac] 150 mg PO BID #30 tab Continue Tiotropium 18 Mcg/Puff [Spiriva] 1 cap INHALATION RT-DAILY Loratadine [Claritin] 10 mg PO DAILY LORazepam [Ativan] 0.5 mg PO TID PRN PRN Reason: Anxiety Changed Ibuprofen [Motrin] 400 mg PO Q6H PRN #0 PRN Reason: Pain Discontinued amLODIPine [Norvasc] 2.5 mg PO DAILY Losartan Potassium 100 mg PO DAILY Discharge Medication List LORazepam [Ativan] 0.5 mg PO TID PRN 08/30/17 [History] Loratadine [Claritin] 10 mg PO DAILY 08/30/17 [History] Tiotropium 18 Mcg/Puff [Spiriva] 1 cap INHALATION RT-DAILY 08/30/17 [History] Albuterol Sulfate [Proair Hfa] 2 puff INHALATION Q6HR PRN #1 inhaler 09/07/17 [ Rx] Ibuprofen [Motrin] 400 mg PO Q6H PRN #0 09/07/17 [Rx] Ranitidine HCl [Zantac] 150 mg PO BID #30 tab 09/07/17 [Rx] predniSONE 10 mg PO DAILY #30 tab 09/07/17 [Rx] Follow up Appointment(s)/Referral(s): Kristina Cornejo MD [Primary Care Provider] - 09/14/17 1:20 pm () [facility], [NON-STAFF] - Whitley Vang MD [STAFF PHYSICIAN] - 10/04/17 9:00 am (Monday) Patient Instructions/Handouts: How to Stop Smoking (DC), COPD (Chronic Obstructive Pulmonary Disease) (DC) Discharge Disposition: HOME WITH HOME HEALTH SERVICES
--- NOTE | 2017-09-07 15:23 | P.PN ---
Subjective Progress Note Date: 09/07/17 This a very pleasant 67 her old female patient who follows with Dr. Cornejo as her primary care physician. She has a history of hyperlipidemia, hypertension, gastroesophageal reflux disease, anorexia/cachexia syndrome, chronic tobacco dependence, coronary artery disease, congestive heart failure, preserved left ventricular systolic function 45-50% ejection fraction. She does have severe advanced oxygen-dependent chronic obstructive pulmonary disease, Gold stage IV. She does have a BiPAP machine at home for hypercapnic respiratory failure. She presented here again yesterday with complaints of increasing shortness of breath, cough and congestion. She's had multiple admissions for COPD exacerbations. She is currently on the BiPAP 10/5 and 40% FiO2 to maintain O2 saturations in the low 90s. Chest x-ray reveals no acute pulmonary process. White count 1.9. Hemoglobin 10.4. Sodium 129. Creatinine 0.34. She has been initiated on bronchodilators, IV Solu-Medrol. She is seen today in consultation on the selective care unit. She is awake and alert in no acute distress. She has been mainly BiPAP dependent since admission in the interim she is tolerating 5 L/m per nasal cannula. She's been afebrile. Hemodynamically stable. On 09/06/2017, the patient is being seen for a follow-up in the patient is doing well. The patient has no specific complaints. She feels her breathing is gradually improving. She was using the BiPAP on and off throughout the night and she seems to be using it more than the usual. Minimal congestion. No significant sputum production. No chest pain. No angina. She has increased back pain. No nausea. No vomiting. No altered mentation. She remains on a combination of bronchodilators and steroids. She has a home ventilator in the form of a AV APS machine. She claims that she has not smoked for several months. No other significant issues over the past 24 hours. The patient remains on a combination of Zithromax and IV Solu-Medrol and 1 otherwise treatments around the clock. She is on IV fluids at 75 mL an hour that needs to be cut down to KVO. She is also on a combination of Perforomist and Pulmicort neb last 2 minutes twice a day. On 09/07/2017 I'm seeing this patient for a follow-up. She is improved and she is less short of breath. She still using her BiPAP machine on and off at the same pressure of 10/5 cm of water. No chest pain. No cough or sputum production. She is drinking 2-3 cans of ensure daily basis. I cutdown of IV fluids to KVO. I think she is good to go and be discharged from the pulmonary standpoint. Objective - Vital Signs Vital signs: Vital Signs Temp 96.6 F L 09/07/17 11:16 Pulse 95 09/07/17 11:16 Resp 16 09/07/17 11:16 BP 125/72 09/07/17 11:16 Pulse Ox 100 09/07/17 11:16 Intake & Output 09/06/17 09/07/17 09/07/17 18:59 06:59 18:59 Intake Total 720 0 Output Total 1450 600 Balance -730 -600 0 Weight 27.5 kg 27.5 kg Intake: Oral 720 0 Output: Urine 1450 600 Other: Voiding Method Bedside Commode Bedside Commode # Voids 0 # Bowel Movements 0 - Exam GENERAL EXAM: Frail, cachectic. Mild respiratory distress. HEAD: Normocephalic. EYES: Normal reaction of pupils, equal size. NOSE: Clear with pink turbinates. THROAT: No erythema or exudates. NECK: No masses, no JVD. CHEST: No chest wall deformity. LUNGS: Equal air entry with bilateral end expiratory wheeze. Diminished throughout. CVS: S1 and S2 normal with no audible murmur, regular rhythm. ABDOMEN: No hepatosplenomegaly, normal bowel sounds, no guarding or rigidity. SPINE: Kyphoscoliosis SKIN: No rashes. ecchymosis. CENTRAL NERVOUS SYSTEM: No focal deficits, tone is normal in all 4 extremities. EXTREMITIES: There is no peripheral edema. No clubbing, no cyanosis. Peripheral pulses are intact. - Labs CBC & Chem 7: 09/06/17 05:45 09/06/17 05:45 Labs: Abnormal Lab Results - Last 24 Hours (Table) 09/06/17 09/06/17 09/07/17 Range/Units 16:24 21:09 05:54 POC Glucose (mg/dL) 132 H 173 H 100 H (75-99) mg/dL Assessment and Plan Plan: Impression: #1 Acute on chronic hypoxic respiratory failure secondary to an acute exacerbation of severe Gold stage 4 . This is another admission or COPD exacerbation. Chest x-ray was reviewed and shows no acute abnormalities and there are some chronic changes related to COPD and scarring in the upper lobes bilaterally. The patient is feeling slightly better compared to yesterday. Continue the treatment for 24 hours regarding her COPD exacerbation and acute on top of chronic respiratory failure. She is using BiPAP on and off during the day. She is using the BiPAP continuously at nighttime. She claims that she has quit smoking. On 09/07/2017, the patient is clinically improving and she is less short of breath compared to yesterday. He responded nicely to bronchodilators and systemic steroids. She is also utilizing BiPAP on and off during the day. She is back to her baseline. #2 Acute on chronic hypercapnic respiratory failure secondary to above. BiPAP dependent. #3 Chronic tobacco dependence. #4 Anorexia/cachexia syndrome. #5 Hypertension. #6 Hyperlipidemia. #7 History of coronary artery disease. #8 Mild cardiomyopathy with an ejection fraction of 45-50%. #9 Poor overall functional performance based on the above-mentioned multiple comorbidities. Plan The patient can be discharged home today on a prednisone burst taper. She is using Spiriva as maintenance patient was given a prior rescue inhaler to be used on an as-needed basis. Prednisone burst taper. She has a a AVAPS machine at home. See me in the office for follow-up.
== END 2017-09-07 15:32 | disposition home health service (06) | DRG 190 ==
LOC: EC 19:31 → 6SEL 21:39
PROVIDERS: ADMIT Hospitalist; ATTEND Hospitalist
DX: J44.1 Chronic obstructive pulmonary disease with (acute) exacerbation (principal); J96.21 Acute and chronic respiratory failure with hypoxia; J96.22 Acute and chronic respiratory failure with hypercapnia; E87.1 Hypo-osmolality and hyponatremia; I42.9 Cardiomyopathy, unspecified; I50.22 Chronic systolic (congestive) heart failure; R64 Cachexia; E44.0 Moderate protein-calorie malnutrition; Z68.1 Body mass index [BMI] 19.9 or less, adult; E78.5 Hyperlipidemia, unspecified; E86.1 Hypovolemia; F17.200 Nicotine dependence, unspecified, uncomplicated; G47.30 Sleep apnea, unspecified; H40.9 Unspecified glaucoma; I11.0 Hypertensive heart disease with heart failure; I25.10 Atherosclerotic heart disease of native coronary artery without angina pectoris; K21.9 Gastro-esophageal reflux disease without esophagitis; M19.90 Unspecified osteoarthritis, unspecified site; I25.2 Old myocardial infarction; Z79.899 Other long term (current) drug therapy; Z82.49 Family history of ischemic heart disease and other diseases of the circulatory system; Z82.5 Family history of asthma and other chronic lower respiratory diseases; Z85.828 Personal history of other malignant neoplasm of skin; Z87.11 Personal history of peptic ulcer disease; Z90.710 Acquired absence of both cervix and uterus; Z99.81 Dependence on supplemental oxygen; Z98.1 Arthrodesis status; Z98.42 Cataract extraction status, left eye; Z98.41 Cataract extraction status, right eye
CPT/HCPCS: 36415; 71046; 80048; 80053; 82550; 82553; 83735; 84484; 85025; 85027; 85610; 85730; 93005; 93306; 94640; 94644; 94660; 96374; 99285

== ENCOUNTER 2017-09-08 06:08 | Inpatient (IN) | payer MEDICARE, OTHER ==
[2017-09-08] MEDS ORDERED: methylPREDNISolone SOD SUCCI 125 MG/2 ML VIAL IV STA (06:13)
[2017-09-08] MEDS ORDERED: ALBUTEROL NEBULIZED 2.5 MG/3 ML INHALATION STA (06:13)
[2017-09-08] MEDS ORDERED: IPRATROPIUM 0.5 MG/2.5 ML NEBU INHALATION STA (06:13)
--- NOTE | 2017-09-08 06:20 | ED ---
SOB HPI - General Chief Complaint: Shortness of Breath Stated Complaint: JONE Time Seen by Provider: 09/08/17 06:13 Source: EMS Mode of arrival: EMS Limitations: no limitations - History of Present Illness Initial Comments: He has a history of COPD, presents with a severe shortness of breath to the point that she was unable to talk embolus crew struck the CPAP she still in a lot of distress unable to give me any review of system barely able to nod her head on a BiPAP now Patient left hospital just yesterday. - Related Data Home Medications Medication Instructions Recorded Confirmed LORazepam [Ativan] 0.5 mg PO TID PRN 08/30/17 09/05/17 Loratadine [Claritin] 10 mg PO DAILY 08/30/17 09/05/17 Tiotropium 18 Mcg/Puff [Spiriva] 1 cap INHALATION RT-DAILY 08/30/17 09/05/17 Previous Rx's Medication Instructions Recorded Albuterol Sulfate [Proair Hfa] 2 puff INHALATION Q6HR PRN #1 09/07/17 inhaler Ibuprofen [Motrin] 400 mg PO Q6H PRN #0 09/07/17 Ranitidine HCl [Zantac] 150 mg PO BID #30 tab 09/07/17 predniSONE 10 mg PO DAILY #30 tab 09/07/17 Allergies Allergy/AdvReac Type Severity Reaction Status Date / Time No Known Allergies Allergy Verified 09/05/17 08:58 Review of Systems ROS Statement: Those systems with pertinent positive or pertinent negative responses have been documented in the HPI. ROS Other: All systems not noted in ROS Statement are negative. Past Medical History Past Medical History: Asthma, Cancer, Chest Pain / Angina, COPD, Eye Disorder, GERD/Reflux, Hyperlipidemia, Hypertension, Myocardial Infarction (MO), Osteoarthritis (OA), Pneumonia, Respiratory Disorder, Sleep Apnea/CPAP/BIPAP Additional Past Medical History / Comment(s): Advanced oxygen-dependent COPD with chronic hypoxic respiratory failure and with multiple hospitalization for COPD exacerbations, chronic hypoxic respiratory failure with home O2 at 5L/NC, born with a single left kidney, previous MO, PUD, bilateral glaucoma, skin cancer, previous history of bowel obstruction, 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 Last Myocardial Infarction Date:: 2011? History of Any Multi-Drug Resistant Organisms: None Reported Past Surgical History: Appendectomy, Back Surgery, Bowel Resection, Section, Hysterectomy, Orthopedic Surgery Additional Past Surgical History / Comment(s): 10/28/15 anterior cervical decompression fusion C3-4,C4-5,C5-6 with NIM cord monitoring, BACK SURGERY lami / FUSION/discectomy, manolo CATARACT SURGERY, LASER EYE SURGERY FOR GLAUCOMA., RIGHT KNEE SURGERY(fx kneecap), cervical surgery and has bars and screws in the neck, bronchoscopy, EGD Past Anesthesia/Blood Transfusion Reactions: No Reported Reaction Past Psychological History: Anxiety Smoking Status: Former smoker - Past Family History Mother Family Medical History: Myocardial Infarction (MO) Additional Family Medical History / Comment(s): Mother had a MO in her 50's Father Family Medical History: No Reported History Additional Family Medical History / Comment(s): FORM OLD AGE Brother(s) Family Medical History: Asthma, COPD Sister(s) Family Medical History: Asthma, COPD General Exam Limitations: no limitations Course Vital Signs 09/08/17 09/08/17 06:10 06:29 Temperature 97.3 F L Pulse Rate 117 H 106 H Respiratory 24 24 Rate Blood Pressure 162/100 159/85 O2 Sat by Pulse 100 100 Oximetry EKG is a sinus tachycardia ventricular rate is 112 DE interval is 136 QRS duration is 84 QT/QTc is 340/428, review of this EKG does not reveal any ST elevation or ST depression Reassessment she is on a BiPAP respiratory rate is 24 ABGs showing normal pH, bicarbonate normal pCO2 Is unremarkable EKG was sinus tachycardia d-dimer is elevated she be admitted to Dr. Lujan and now she be seeing her pulmonary medicine specialist as well Medical Decision Making - Lab Data Result diagrams: 09/08/17 06:20 09/08/17 06:20 Lab Results 09/08/17 09/08/17 09/08/17 Range/Units 06:17 06:20 06:20 WBC 9.3 (3.8-10.6) k/uL RBC 4.00 (3.80-5.40) m/uL Hgb 11.3 L (11.4-16.0) gm/dL Hct 34.6 (34.0-46.0) % MCV 86.5 (80.0-100.0) fL MCH 28.3 (25.0-35.0) pg MCHC 32.7 (31.0-37.0) g/dL RDW 16.6 H (11.5-15.5) % Plt Count 522 H (150-450) k/uL Neutrophils % 75 % Lymphocytes % 18 % Monocytes % 6 % Eosinophils % 0 % Basophils % 0 % Neutrophils # 6.9 (1.3-7.7) k/uL Lymphocytes # 1.7 (1.0-4.8) k/uL Monocytes # 0.5 (0-1.0) k/uL Eosinophils # 0.0 (0-0.7) k/uL Basophils # 0.0 (0-0.2) k/uL Anisocytosis Slight Sample Site Right Radial ABG pH 7.41 (7.35-7.45) ABG pCO2 51 H (35-45) mmHg ABG pO2 349 H (83-108) mmHg ABG HCO3 33 H (21-25) mmol/L ABG Total CO2 34 H (19-24) mmol/L ABG O2 Saturation 99.7 H (94-97) % ABG Base Excess 7.9 mmol/L Aj Test Yes FiO2 100 % Sodium (137-145) mmol/L Potassium (3.5-5.1) mmol/L Chloride (98-107) mmol/L Carbon Dioxide (22-30) mmol/L Anion Gap mmol/L BUN (7-17) mg/dL Creatinine (0.52-1.04) mg/dL Est GFR (CKD-EPI)AfAm (>60 ml/min/1.73 sqM) Est GFR (CKD-EPI)NonAf (>60 ml/min/1.73 sqM) Glucose (74-99) mg/dL Calcium (8.4-10.2) mg/dL Total Bilirubin (0.2-1.3) mg/dL AST (14-36) U/L ALT (9-52) U/L Alkaline Phosphatase (38-126) U/L Total Creatine Kinase 48 (30-135) U/L CK-MB (CK-2) 3.1 H* (0.0-2.4) ng/mL CK-MB (CK-2) Rel Index 6.5 Troponin I 0.016 (0.000-0.034) ng/mL Total Protein (6.3-8.2) g/dL Albumin (3.5-5.0) g/dL 09/08/17 Range/Units 06:20 WBC (3.8-10.6) k/uL RBC (3.80-5.40) m/uL Hgb (11.4-16.0) gm/dL Hct (34.0-46.0) % MCV (80.0-100.0) fL MCH (25.0-35.0) pg MCHC (31.0-37.0) g/dL RDW (11.5-15.5) % Plt Count (150-450) k/uL Neutrophils % % Lymphocytes % % Monocytes % % Eosinophils % % Basophils % % Neutrophils # (1.3-7.7) k/uL Lymphocytes # (1.0-4.8) k/uL Monocytes # (0-1.0) k/uL Eosinophils # (0-0.7) k/uL Basophils # (0-0.2) k/uL Anisocytosis Sample Site ABG pH (7.35-7.45) ABG pCO2 (35-45) mmHg ABG pO2 (83-108) mmHg ABG HCO3 (21-25) mmol/L ABG Total CO2 (19-24) mmol/L ABG O2 Saturation (94-97) % ABG Base Excess mmol/L Aj Test FiO2 % Sodium 135 L (137-145) mmol/L Potassium 3.6 (3.5-5.1) mmol/L Chloride 94 L (98-107) mmol/L Carbon Dioxide 30 (22-30) mmol/L Anion Gap 11 mmol/L BUN 12 (7-17) mg/dL Creatinine 0.40 L (0.52-1.04) mg/dL Est GFR (CKD-EPI)AfAm >90 (>60 ml/min/1.73 sqM) Est GFR (CKD-EPI)NonAf >90 (>60 ml/min/1.73 sqM) Glucose 83 (74-99) mg/dL Calcium 9.5 (8.4-10.2) mg/dL Total Bilirubin 0.3 (0.2-1.3) mg/dL AST 15 (14-36) U/L ALT 24 (9-52) U/L Alkaline Phosphatase 84 (38-126) U/L Total Creatine Kinase (30-135) U/L CK-MB (CK-2) (0.0-2.4) ng/mL CK-MB (CK-2) Rel Index Troponin I (0.000-0.034) ng/mL Total Protein 6.1 L (6.3-8.2) g/dL Albumin 3.8 (3.5-5.0) g/dL Disposition Clinical Impression: Acute exacerbation of COPD with asthma Disposition: ADMITTED IP TO THIS HOSP Condition: Poor Referrals: Kristina Cornejo MD [Primary Care Provider] - 1-2 days
[2017-09-08 06:31] LABS: ABG Base Excess 7.9 mmol/L; ABG HCO3 33 mmol/L (21-25); ABG Oxygen Saturation 99.7 % (94-97); ABG PCO2 51 mmHg (35-45); ABG PH 7.41 (7.35-7.45); ABG PO2 349 mmHg (83-108); ABG TCO2 34 mmol/L (19-24)
[2017-09-08 06:37] LABS: Anisocytosis Slight; Basophils % (A) 0 %; Eosinophils % (A) 0 %; HCT 34.6 % (34.0-46.0); HGB 11.3 gm/dL (11.4-16.0); Lymphocytes # (A) 1.7 k/uL (1.0-4.8); Lymphocytes % (A) 18 %; MCH 28.3 pg (25.0-35.0); MCHC 32.7 g/dL (31.0-37.0); MCV 86.5 fL (80.0-100.0); Mean Platelet Volume 6.1; Monocytes # (A) 0.5 k/uL (0-1.0); Monocytes % (A) 6 %; Neutrophils # (A) 6.9 k/uL (1.3-7.7); Neutrophils % (A) 75 %; Platelet Count 522 k/uL (150-450); RDW 16.6 % (11.5-15.5); WBC 9.3 k/uL (3.8-10.6)
[2017-09-08 06:45] LABS: ALT 24 U/L (9-52); AST 15 U/L (14-36); Albumin 3.8 g/dL (3.5-5.0); Alkaline Phosphatase 84 U/L (38-126); Anion Gap 11 mmol/L; Blood Urea Nitrogen 12 mg/dL (7-17); Calcium 9.5 mg/dL (8.4-10.2); Carbon Dioxide 30 mmol/L (22-30); Chloride 94 mmol/L (98-107); Glucose 83 mg/dL (74-99); Potassium 3.6 mmol/L (3.5-5.1); Sodium 135 mmol/L (137-145); Total Bilirubin 0.3 mg/dL (0.2-1.3); Total Protein 6.1 g/dL (6.3-8.2)
[2017-09-08 07:08] LABS: Troponin I 0.016 ng/mL (0.000-0.034)
[2017-09-08 07:09] LABS: Prothrombin Time 9.8 sec (9.0-12.0)
[2017-09-08 07:11] LABS: Creatine Kinase MB 3.1 ng/mL (0.0-2.4)
[2017-09-08 07:16] LABS: D-Dimer 1.06 mg/L FEU (<0.60); Partial Thromboplastin Time 20.5 sec (22.0-30.0)
[2017-09-08] MEDS ORDERED: ALBUTEROL NEBULIZED 2.5 MG/3 ML INHALATION PRN (07:26)
[2017-09-08] MEDS ORDERED: LORazepam 0.5 MG TAB PO PRN (07:26)
[2017-09-08] MEDS ORDERED: IBUPROFEN 400 MG TAB PO PRN (07:26)
--- NOTE | 2017-09-08 07:40 | XR ---
EXAMINATION TYPE: XR chest 1V portable DATE OF EXAM: 09/08/2017 COMPARISON: Chest x-ray September 04, 2017. HISTORY: Shortness of breath TECHNIQUE: Single AP portable frontal upright view of the chest is obtained. FINDINGS: There is chronic parenchymal change with left greater than right upper lung fibrosis redemo nstrated. There is no new suspicious focal air space opacity, pleural effusion, or pneumothorax seen. The cardiac silhouette size is within normal limits. Surgical changes lower cervical spine is redem onstrated. IMPRESSION: Chronic fibrotic changes without acute pulmonary process.
--- NOTE | 2017-09-08 08:36 | CT ---
EXAMINATION TYPE: CT chest angio for PE DATE OF EXAM: 09/08/2017 COMPARISON: NONE HISTORY: SOB CT DLP: 155.6 mGycm. Automated Exposure Control for Dose Reduction was Utilized. CONTRAST: CTA scan of the thorax is performed with IV Contrast, patient injected with 45 mL of Isovue 370, pulm onary embolism protocol. MIP Images are created on CT scanner and reviewed. FINDINGS: LUNGS: There are extensive panlobular emphysematous changes. Probable nodular biapical pleural thicke fabio is seen bilaterally. Numerous areas of linear pleural parenchymal scarring are seen. In addition there is a focal spiculated superior segment right lower lobe pulmonary nodule measuring 0.9 x 0.8 c m on series 6 image 51 also seen on soft tissue windows. Benign granulomas noted within the right low er lobe in the subpleural lateral lung base. Mild peribronchial cuffing is seen throughout the most e xaggerated in the left lower lobe. No focal consolidation is seen. MEDIASTINUM: There is satisfactory enhancement of the pulmonary artery and its branches, there is no CT evidence for pulmonary embolism. There is enlargement of the left and right main pulmonary arteri es measuring 2.5 cm on the left and 2.0 cm on the right. Findings suggest pulmonary arterial hyperten kathleen. Solitary prominent 9 mm right suprahilar lymph node is seen. There are no greater than 1 cm hil ar or mediastinal lymph nodes. No cardiomegaly or pericardial effusion is seen. OTHER: Multiple wedge compression deformities are seen of T4, T6, T7, T8, T9, T10, T11 and L1. These appear new from the radiograph dated 02/20/2015 but unchanged from the radiograph dated 09/04/2017. An terior cervical fusion device is present. IMPRESSION: 1. No evidence of pulmonary embolus. 2. Extensive panlobular emphysematous changes and spiculated 9 mm right lower lobe pulmonary nodule m ay represent scarring or neoplasm. PET CT could be performed for further evaluation or short-term fol low-up given the subcentimeter size. 3. Enlargement of the pulmonary artery suggesting underlying pulmonary arterial hypertension. 4. Multiple thoracic and upper lumbar compression deformities unchanged from the most recent radiogra ph but new from 2014.
[2017-09-08] MEDS ORDERED: LORATADINE 10 MG TAB PO SCH (09:00)
[2017-09-08] MEDS ORDERED: FAMOTIDINE 20 MG TAB PO SCH (09:00)
[2017-09-08] MEDS ORDERED: LEVOFLOXACIN 500 MG TAB PO SCH (09:00)
[2017-09-08] MEDS: IPRATROPIUM 0.5 MG/2.5 ML NEBU INHALATION SCH ×3 (09:25→16:12)
[2017-09-08 11:50] VITALS: BP 168/86; RESP 22; TEMP 97.8
[2017-09-08] MEDS ORDERED: methylPREDNISolone SOD SUCCI 125 MG/2 ML VIAL IV SCH (12:00)
[2017-09-08] MEDS ORDERED: LORazepam 1 MG TAB PO PRN (13:51)
[2017-09-08] MEDS ORDERED: MORPHINE CONC SOLN 10mg/0.5mL ORAL SYRG PO PRN (13:51)
[2017-09-08 14:33] VITALS: BMI 14.1
[2017-09-08 16:26] VITALS: PULSE 100
--- NOTE | 2017-09-08 17:18 | P.HPIM ---
History of Present Illness H&P Date: 09/08/17 Chief Complaint: Shortness of breath 09/08/2017 History of present illness: This is a 67-year-old female with severe advanced COPD, discharged yesterday, opened to [facility] last night. Developed worsening shortness of breath last night, called 911 and brought in by ambulance to the hospital. Patient is being admitted as GIP for acute symptomatic management for hospice. Review of Systems Review of systems currently unable to obtain as patient severely hypoxic, on BiPAP. Past Medical History Past Medical History: Asthma, Cancer, Chest Pain / Angina, COPD, Eye Disorder, GERD/Reflux, Hyperlipidemia, Hypertension, Myocardial Infarction ([place]), Osteoarthritis (OA), Pneumonia, Respiratory Disorder, Sleep Apnea/CPAP/BIPAP Additional Past Medical History / Comment(s): Pt recently admitted to [facility] on with chest pain thought to be muscular, acute on chronic respiratory failure 2ndary to COPD, mild cardiomyopathy with EF 45-50%, was hypotensive. 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 Last Myocardial Infarction Date:: 2011? History of Any Multi-Drug Resistant Organisms: None Reported Past Surgical History: Appendectomy, Back Surgery, Bowel Resection, Section, Hysterectomy, Orthopedic Surgery Additional Past Surgical History / Comment(s): 10/28/15 anterior cervical decompression fusion C3-4,C4-5,C5-6 with NIM cord monitoring, BACK SURGERY lami / FUSION/discectomy, manolo CATARACT SURGERY, LASER EYE SURGERY FOR GLAUCOMA., RIGHT KNEE SURGERY(fx kneecap), cervical surgery and has bars and screws in the neck, bronchoscopy, EGD, skin cancer removals Past Anesthesia/Blood Transfusion Reactions: No Reported Reaction Smoking Status: Former smoker - Past Family History Mother Family Medical History: Myocardial Infarction ([place]) Additional Family Medical History / Comment(s): Mother had a FL in her 50's Father Family Medical History: No Reported History Additional Family Medical History / Comment(s): FORM OLD AGE Brother(s) Family Medical History: Asthma, COPD Sister(s) Family Medical History: Asthma, COPD Medications and Allergies Home Medications Medication Instructions Recorded Confirmed Type LORazepam [Ativan] 0.5 mg PO TID PRN 08/30/17 09/08/17 History Loratadine [Claritin] 10 mg PO DAILY 08/30/17 09/08/17 History Tiotropium 18 Mcg/Puff [Spiriva] 1 cap INHALATION RT-DAILY 08/30/17 09/08/17 History Ibuprofen [Motrin] 400 mg PO Q6H PRN #0 09/07/17 09/08/17 Rx Ranitidine HCl [Zantac] 150 mg PO BID #30 tab 09/07/17 09/08/17 Rx Albuterol Sulfate [Proair Hfa] 2 puff INHALATION RT-Q6H PRN 09/08/17 09/08/17 History predniSONE See Taper PO DAILY 09/08/17 09/08/17 History Allergies Allergy/AdvReac Type Severity Reaction Status Date / Time No Known Allergies Allergy Verified 09/05/17 08:58 Physical Exam Vitals: Vital Signs Temp Pulse Pulse Resp BP BP Pulse Ox 09/08/17 16:25 100 09/08/17 16:14 102 H 09/08/17 11:48 97.8 F 99 22 168/86 100 09/08/17 11:40 101 H 09/08/17 11:30 104 H 09/08/17 08:35 99 22 09/08/17 08:21 93 09/08/17 08:17 96 18 179/91 100 09/08/17 08:07 96 09/08/17 06:29 106 H 24 159/85 100 09/08/17 06:10 97.3 F L 117 H 24 162/100 100 Intake and Output 09/08/17 09/08/17 09/08/17 06:59 14:59 22:59 Output Total 1 0 Balance -1 0 Output: Urine 1 Stool 0 0 Other: Weight 34.019 kg 34.019 kg PHYSICAL EXAM: VITAL SIGNS: As above GENERAL: Sitting up in bed, lethargic, respiratory effort increased, wearing BiPAP HEENT: Conjunctivae normal. eyes normal. NECK: No JVD. No thyroid enlargement. No LNs CARDIOVASCULAR: S1, S2 muffled. No murmur RESPIRATION: Breath sounds diminished in the bases. Scattered rhonchi with crackles, expiratory wheezing ABDOMEN: Soft, nontender . No guarding. no masses palpable.Bowel sounds heard. LEGS: No edema. no swelling NEURO: Unable to evaluate at this time Results CBC & Chem 7: 18 06:20 18 06:20 Labs: Abnormal Lab Results - Last 24 Hours (Table) 09/08/17 09/08/17 09/08/17 Range/Units 06:17 06:20 06:20 Hgb 11.3 L (11.4-16.0) gm/dL RDW 16.6 H (11.5-15.5) % Plt Count 522 H (150-450) k/uL APTT (22.0-30.0) sec D-Dimer (<0.60) mg/L FEU ABG pCO2 51 H (35-45) mmHg ABG pO2 349 H (83-108) mmHg ABG HCO3 33 H (21-25) mmol/L ABG Total CO2 34 H (19-24) mmol/L ABG O2 Saturation 99.7 H (94-97) % Sodium (137-145) mmol/L Chloride (98-107) mmol/L Creatinine (0.52-1.04) mg/dL CK-MB (CK-2) 3.1 H* (0.0-2.4) ng/mL Total Protein (6.3-8.2) g/dL 09/08/17 09/08/17 Range/Units 06:20 06:20 Hgb (11.4-16.0) gm/dL RDW (11.5-15.5) % Plt Count (150-450) k/uL APTT 20.5 L (22.0-30.0) sec D-Dimer 1.06 H (<0.60) mg/L FEU ABG pCO2 (35-45) mmHg ABG pO2 (83-108) mmHg ABG HCO3 (21-25) mmol/L ABG Total CO2 (19-24) mmol/L ABG O2 Saturation (94-97) % Sodium 135 L (137-145) mmol/L Chloride 94 L (98-107) mmol/L Creatinine 0.40 L (0.52-1.04) mg/dL CK-MB (CK-2) (0.0-2.4) ng/mL Total Protein 6.1 L (6.3-8.2) g/dL Thrombosis Risk Factor Assmnt - Choose All That Apply Any of the Below Risk Factors Present?: Yes Each Factor Represents 1 point: Abnormal pulmonary function (COPD), Medical pt on bed rest, Serious lung disease incl. pneumonia (< 1month) Other Risk Factors: Yes Each Risk Factor Represents 2 Points: Age 61-74 years, Patient confined to bed, Malignancy Other congenital or acquired thrombophilia - If yes, enter type in comment: No Thrombosis Risk Factor Assessment Total Risk Factor Score: 9 Thrombosis Risk Factor Assessment Level: High Risk Assessment and Plan Assessment: 1. Advanced severe COPD 2. No code, no CPR, no intubation 3. GIP hospice Plan: Continue on current medication regime ,monitoring and symptomatic treatment as mentioned above patient is admitted for acute symptomatic management for hospice. Maintained Comfort care. The impression and plan of care has been dictated as directed. : I performed a history and examination of this patient, discussed the same with the dictator. I agree with the dictator's note ,documented as a scribe. Any additional findings or plans will be noted.
--- NOTE | 2017-09-11 10:36 | P.DS ---
Providers Date of admission: 09/08/17 07:20 Attending physician: Amelia Lujan Consults: 09/08/17 07:20 Consult Physician Stat Consulting Provider: Whitley Vang Consult Reason/Comments: Acute exacerbation of COPD Do you want consulting provider notified?: Yes Primary care physician: Chantal Acevedo [facility] Course: Patient was discharged to hospice house on on 09/08/2017 Patient Condition at Discharge: Poor Plan - Discharge Summary Discharge Rx Participant: No New Discharge Prescriptions: No Action Tiotropium 18 Mcg/Puff [Spiriva] 1 cap INHALATION RT-DAILY Loratadine [Claritin] 10 mg PO DAILY LORazepam [Ativan] 0.5 mg PO TID PRN PRN Reason: Anxiety Ranitidine HCl [Zantac] 150 mg PO BID #30 tab Ibuprofen [Motrin] 400 mg PO Q6H PRN #0 PRN Reason: Pain Albuterol Sulfate [Proair Hfa] 2 puff INHALATION RT-Q6H PRN PRN Reason: Shortness Of Breath predniSONE See Taper PO DAILY Discharge Medication List LORazepam [Ativan] 0.5 mg PO TID PRN 08/30/17 [History] Loratadine [Claritin] 10 mg PO DAILY 08/30/17 [History] Tiotropium 18 Mcg/Puff [Spiriva] 1 cap INHALATION RT-DAILY 08/30/17 [History] Ibuprofen [Motrin] 400 mg PO Q6H PRN #0 09/07/17 [Rx] Ranitidine HCl [Zantac] 150 mg PO BID #30 tab 09/07/17 [Rx] Albuterol Sulfate [Proair Hfa] 2 puff INHALATION RT-Q6H PRN 09/08/17 [History] predniSONE See Taper PO DAILY 09/08/17 [History] Follow up Appointment(s)/Referral(s): Kristina Cornejo MD [Primary Care Provider] - 1-2 days Discharge Disposition[facility] DISCH TO [facility]
== END 2017-09-08 17:37 | disposition hospice, inpatient (51) | DRG 191 ==
LOC: EC 06:08 → 6SEL 07:20 → 5ONC 12:39
PROVIDERS: ADMIT Hospitalist; ATTEND Hospitalist
PROC: 5A09357 Assistance with Respiratory Ventilation, Less than 24 Consecutive Hours, Continuous Positive Airway Pressure (ICD-10-PCS; principal; 2017-09-08)
DX: J44.1 Chronic obstructive pulmonary disease with (acute) exacerbation (principal); J45.901 Unspecified asthma with (acute) exacerbation; J96.11 Chronic respiratory failure with hypoxia; Q60.0 Renal agenesis, unilateral; I42.9 Cardiomyopathy, unspecified; E78.5 Hyperlipidemia, unspecified; G47.30 Sleep apnea, unspecified; H40.9 Unspecified glaucoma; I10 Essential (primary) hypertension; I25.2 Old myocardial infarction; K21.9 Gastro-esophageal reflux disease without esophagitis; Z51.5 Encounter for palliative care; Z79.899 Other long term (current) drug therapy; Z82.49 Family history of ischemic heart disease and other diseases of the circulatory system; Z82.5 Family history of asthma and other chronic lower respiratory diseases; Z85.828 Personal history of other malignant neoplasm of skin; Z87.11 Personal history of peptic ulcer disease; Z87.891 Personal history of nicotine dependence; Z99.81 Dependence on supplemental oxygen; Z90.710 Acquired absence of both cervix and uterus; Z79.52 Long term (current) use of systemic steroids; Z98.42 Cataract extraction status, left eye; Z98.41 Cataract extraction status, right eye; Z66 Do not resuscitate; Z74.01 Bed confinement status; Z98.1 Arthrodesis status; M19.90 Unspecified osteoarthritis, unspecified site; Z87.01 Personal history of pneumonia (recurrent)
CPT/HCPCS: 36415; 36600; 71045; 71275; 80053; 82550; 82553; 82805; 83880; 84484; 85025; 85379; 85610; 85730; 93005; 94640; 94660; 96374; 99285